=== PATIENT | female | born 1990 | race Caucasian/White ===

== ENCOUNTER 2017-05-07 17:48 | Emergency (ER) | payer BC ==
[~2017-05-07] VITALS: Ht 180.3 cm; Wt 169.3 kg
[~2017-05-07 17:48] MED LIST: BCPILLS PO; GLC/500 PO; LORA-741 PO; PROM25TA9 PO
[2017-05-07 17:58] VITALS: TEMP 36.8; Ht 180.3 cm; Wt 169.3 kg
[2017-05-07] MEDS ORDERED: TOPI25TA99 PO (18:17)
[2017-05-07] MEDS ORDERED: KETOROLAC TROMETHAMINE 30 MG/ML VIAL IV STA (19:25)
[2017-05-07] MEDS ORDERED: PROMETHAZINE HCL INJ 25 MG in SODIUM CHLORIDE 0.9% 50ML 50 ML IV STA (19:25)
[2017-05-07] MEDS ORDERED: SODIUM CHLORIDE 0.9% 1000ML 1,000 ML IV STA (19:25)
[2017-05-07] MEDS ORDERED: MAGNESIUM SULFATE 1GM / D5W 1 GM BAG IV STA (19:25)
[2017-05-07] MEDS ORDERED: TPM25 PO (19:55)
[2017-05-07] MEDS ORDERED: LXP10 PO (19:55)
--- NOTE | 2017-05-07 20:00 | EMERGENCY ROOM VISIT NOTE ---
History Report prepared by Gregory: Serina Torres Under the Supervision of: Dr. Marlo Mazariegos M.D. First contact with patient: 19:11 Chief Complaint: HEADACHE Stated Complaint: MIGRAINE History of Present Illness The patient is a 26 year old female who presents to the Emergency Room with complaints of an episode of a headache starting four days ago. She states that she called her PCP today who set up an appointment with her for tomorrow to find a neurologist. She reports that her PCP told her to come to the ED tonight though. The patient notes that she took Excedrin that seemed to offer some relief, but when it wore off, she reports that the headache came back worse than before. She reports that the pain started in the temporal region and has since radiated through her head. The patient notes she is currently menstruating. The patient denies a chance of , tampon retention, runny nose, and neck pain. Source of History: patient Onset: four days ago Position: head Quality: other (radiating) Timing: other (episode) Modifying Factors (Relieving): other Associated Symptoms: No neck pain Note: The patient denies the chance of , tampon retention, and a runny nose. Review of Systems See HPI for pertinent positives & negatives. A total of 10 systems reviewed and were otherwise negative. Past Medical & Surgical Medical Problems: (1) Acute Pharyngitis (2) Acute Tonsillitis (3) Bronchitis (4) Epilepsy Unspec W/O Mention Intractable Epilepsy (5) Migraine (6) Migraine Unspecified W/O Intractable Migraine (7) PNA (pneumonia) (8) Seizure disorder Family History Cancer Diabetes mellitus Gallbladder disease Heart disease Hypertension Kidney disease Kidney stones Lung disease Social History Smoking Status: Never Smoker Drug Use: none Marital Status: single Occupation Status: employed Current/Historical Medications Scheduled Control Pills ( Control Pills), 1 TAB PO DAILY Escitalopram Oxalate (Escitalopram Oxalate), 15 MG PO DAILY Metformin Hcl (Glucophage), 500 MG PO BID Topiramate (Topamax ), 25 MG PO QAM Topiramate (Topiramate), 50 MG PO QPM Allergies Coded Allergies: Diphenhydramine (Unverified Allergy, Severe, LEG PAIN, 05/16/16) Amoxicillin (Unverified Allergy, Unknown, UNKNOWN, 05/16/16) Physical Exam Vital Signs Date Time Temp Pulse Resp B/P (MAP) Pulse Ox O2 Delivery O2 Flow Rate FiO2 05/07/17 21:31 77 18 147/106 99 05/07/17 20:26 65 05/07/17 20:01 68 18 131/73 97 Room Air 05/07/17 17:58 36.8 92 18 152/104 97 Room Air Physical Exam GENERAL: Patient is a healthy-appearing well-nourished HEAD: Normocephalic atraumatic EYES: Ocular movements intact pupils equal and react to light OROPHARYNX mucous membranes are moist no exudates present no erythema or edema present NECK: Supple no nuchal rigidity. No evidence of meningitis or encephalitis on exam. CHEST: Good equal expansion LUNGS: Clear and equal to auscultation CARDIAC: Normal S1 and S2 ABDOMEN: Soft nontender no guarding BACK: No CVA tenderness EXTREMITIES: No pain upon palpation normal muscle strength in all groups no clubbing cyanosis or edema NEURO: Patient is following commands and answering questions appropriately. Alert and oriented x3 Cranial Nerves 2-12 grossly intact Medical Decision & Procedures Laboratory Results 05/07/17 19:58 Red Blood Count 5.14, Mean Corpuscular Volume 82.3, Mean Corpuscular Hemoglobin 29.4, Mean Corpuscular Hemoglobin Concent 35.7, Mean Platelet Volume 10.6, Neutrophils (%) (Auto) 46.5, Lymphocytes (%) (Auto) 44.7, Monocytes (%) (Auto) 6.1, Eosinophils (%) (Auto) 2.1, Basophils (%) (Auto) 0.3, Neutrophils # (Auto) 3.56, Lymphocytes # (Auto) 3.42, Monocytes # (Auto) 0.47, Eosinophils # (Auto) 0.16, Basophils # (Auto) 0.02 05/07/17 19:58 Test 05/07/17 19:58 White Blood Count 7.65 K/uL (4.8-10.8) Red Blood Count 5.14 M/uL (4.2-5.4) Hemoglobin 15.1 g/dL (12.0-16.0) Hematocrit 42.3 % (37-47) Mean Corpuscular Volume 82.3 fL (80-100) Mean Corpuscular Hemoglobin 29.4 pg (25-34) Mean Corpuscular Hemoglobin Concent 35.7 g/dl (32-36) Platelet Count 371 K/uL (130-400) Mean Platelet Volume 10.6 fL (7.4-10.4) Neutrophils (%) (Auto) 46.5 % Lymphocytes (%) (Auto) 44.7 % Monocytes (%) (Auto) 6.1 % Eosinophils (%) (Auto) 2.1 % Basophils (%) (Auto) 0.3 % Neutrophils # (Auto) 3.56 K/uL (1.4-6.5) Lymphocytes # (Auto) 3.42 K/uL (1.2-3.4) Monocytes # (Auto) 0.47 K/uL (0.11-0.59) Eosinophils # (Auto) 0.16 K/uL (0-0.5) Basophils # (Auto) 0.02 K/uL (0-0.2) RDW Standard Deviation 44.1 fL (36.4-46.3) RDW Coefficient of Variation 14.5 % (11.5-14.5) Immature Granulocyte % (Auto) 0.3 % Immature Granulocyte # (Auto) 0.02 K/uL (0.00-0.02) Anion Gap 8.0 mmol/L (3-11) Est Creatinine Clear Calc Drug Dose 183.1 ml/min Estimated GFR () 116.2 Estimated GFR (Non- 100.2 BUN/Creatinine Ratio 18.6 (10-20) Calcium Level 8.6 mg/dl (8.5-10.1) Total Bilirubin 0.3 mg/dl (0.2-1) Direct Bilirubin < 0.1 mg/dl (0-0.2) Aspartate Amino Transf (AST/SGOT) 17 U/L (15-37) Alanine Aminotransferase (ALT/SGPT) 31 U/L (12-78) Alkaline Phosphatase 78 U/L (45-117) Total Protein 7.2 gm/dl (6.4-8.2) Albumin 3.4 gm/dl (3.4-5.0) Lipase 141 U/L (73-393) Labs reviewed by ED physician. Medications Administered Medications (Trade) Dose Ordered Sig/Hernan Route Start Time Stop Time Status Last Admin Dose Admin Sodium Chloride 1,000 ml @ 999 mls/hr Q1H1M STAT IV 05/07/17 19:25 05/07/17 20:25 DC 05/07/17 19:58 999 MLS/HR Magnesium Sulfate (Magnesium Sulfate) 1 gm NOW STAT IV 05/07/17 19:25 05/07/17 19:27 DC 05/07/17 20:16 1 GM Ketorolac Tromethamine (Toradol Inj) 30 mg NOW STAT IV 05/07/17 19:25 05/07/17 19:27 DC 05/07/17 20:18 30 MG Promethazine HCl 25 mg/Sodium Chloride 51 ml @ 204 mls/hr NOW STAT IV 05/07/17 19:25 05/07/17 19:39 DC 05/07/17 19:58 204 MLS/HR Dexamethasone Sodium Phosphate (Decadron Inj) 10 mg NOW STAT IV 05/07/17 20:45 05/07/17 20:46 DC 05/07/17 21:25 10 MG ED Course 1920: Past medical records reviewed. The patient was evaluated in room A4B. A complete history and physical examination was performed. 1924: Ordered Promethazine HCl 25 mg/ Sodium Chloride 51 ml @ 204 mls/hr IV, Toradol Inj 30 mg IV, Magnesium Sulfate 1 gm IV, NSS 1000 ml @ 999 mls/hr IV. 2039: Upon reexamination the patient is resting comfortably. I discussed results and treatment plan with the patient. She verbalizes agreement and understanding. The patient is ready for discharge. 2044: Ordered Decadron Inj 10 mg IV. Medical Decision Differential diagnosis: Etiologies such as migraine headache, meningitis, sinusitis, CO exposure, ICH, SAH, infection, tumor, headache, sinus thrombosis, arterial dissection, as well as others were entertained. This is a 26-year-old female who presents emergency department complaining of headache. She has no evidence of meningitis or encephalitis on examination. An IV was established, the patient was given normal saline bolus, Toradol, Phenergan, Decadron. Repeat examination revealed improvement the patient's symptoms. I do believe that the patient as well as to be discharged home for follow-up with her neurologist. Patient was in agreement with the treatment plan. Medication Reconcilliation Current Medication List: was personally reviewed by me Blood Pressure Screening Patient's blood pressure: Elevated blood pressure Blood pressure disposition: Referred to PCP Impression Primary Impression: Headache Scribe Attestation The scribe's documentation has been prepared under my direction and personally reviewed by me in its entirety. I confirm that the note above accurately reflects all work, treatment, procedures, and medical decision making performed by me. Departure Information Dispostion Home / Self-Care Referrals No Doctor, Assigned (PCP) Forms HOME CARE DOCUMENTATION FORM, IMPORTANT VISIT INFORMATION Patient Instructions My [facility] Additional Instructions Follow up with Dr Patel's office You were found to have an elevated blood pressure today (>120 sytolic or >90 diastolic). Per medicare guidelines, you need to follow up with this blood pressure screening with your Primary Care Physician (PCP). For a new PCP call [phone]. You have been examined and treated today on an emergency basis only. This is not a substitute for, or an effort to provide, complete comprehensive medical care. It is impossible to recognize and treat all injuries or illnesses in a single emergency department visit. It is therefore important that you follow up closely with your PCP. Call as soon as possible for an appointment. Thank you for your time and consideration. I look forward to speaking with you again soon. Please don't hesitate to call us if you have any questions. Problem Qualifiers Primary Impression: Headache Headache type: unspecified Headache chronicity pattern: unspecified pattern Intractability: not intractable Qualified Codes: R51 - Headache
[2017-05-07 20:14] LABS: BASO % 0.3 %; BASO ABS # 0.02 K/uL (0-0.2); COMPLETE YES; EOS % 2.1 %; HEMATOCRIT 42.3 % (37-47); IG% 0.3 %; LYMPH % 44.7 %; LYMPH ABS # 3.42 K/uL (1.2-3.4); MEAN CELL VOLUME 82.3 fL (80-100); MEAN CORPUSCULAR HEMOGLOBIN 29.4 pg (25-34); MEAN CORPUSCULAR HGB CONC 35.7 g/dl (32-36); MEAN PLATELET VOLUME 10.6 fL (7.4-10.4); MONO % 6.1 %; NEUT % 46.5 %; PLATELET COUNT 371 K/uL (130-400); RED BLOOD COUNT 5.14 M/uL (4.2-5.4); WHITE BLOOD COUNT 7.65 K/uL (4.8-10.8)
[2017-05-07 20:33] LABS: ALT/SGPT 31 U/L (12-78); AST/SGOT 17 U/L (15-37); BLOOD UREA NITROGEN 15 mg/dl (7-18); BUN/CREATININE RATIO 18.6 (10-20); CALCIUM 8.6 mg/dl (8.5-10.1); CARBON DIOXIDE 25 mmol/L (21-32); CHLORIDE 110 mmol/L (98-107); CREATININE 0.81 mg/dl (0.60-1.20); GLUCOSE 90 mg/dl (70-99); POTASSIUM 4.1 mmol/L (3.5-5.1); SODIUM 143 mmol/L (136-145)
[2017-05-07 20:35] LABS: ALKALINE PHOSPHATASE 78 U/L (45-117)
[2017-05-07] MEDS ORDERED: DEXAMETHASONE SOD INJ 10 MG/ML VIAL IV STA (20:45)
[2017-05-07 21:31] VITALS: BP 147/106; PULSE 77; O2SAT 99
== END 2017-05-07 21:31 | disposition home or self-care (01) ==
LOC: C.EDB 17:49 → C.EDA 21:31
DX: R51 Headache (principal); G40.909 Epilepsy, unspecified, not intractable, without status epilepticus; Z83.3 Family history of diabetes mellitus; Z82.49 Family history of ischemic heart disease and other diseases of the circulatory system

== ENCOUNTER → 2017-07-26 | Outpatient (CLI) | payer BC ==
[~2017-07-26] MED LIST changes: +GADAVIST IV PRN; -LORA-741 PO; +LXP10 PO; -PROM25TA9 PO; +TOPI25TA99 PO; +TPM25 PO
--- NOTE | 2017-07-26 11:55 | DIAGNOSTIC IMAGING REPORT ---
Brain MRI WITH AND WITHOUT CONTRAST HISTORY: WORSENING HEADACHE,R/O LESION,R/O CHIARI MALFORMATION TECHNIQUE: Multiplanar multisequence MRI of the brain was performed both before and after the intravenous administration of contrast. COMPARISON STUDY: Head CT 12/31/2014. FINDINGS: There are no areas of restricted diffusion to suggest acute infarction. Small retention cysts within the left maxillary sinus. Mild mucosal thickening within the left frontal sinus. The orbits are unremarkable. T1 and T2 hyperintense lesions within the bilateral parietal bones with the largest on the right measuring 2.3 cm. 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 Bulbous appearance to the pituitary gland. However, this enhances homogeneously. No definite masses identified. The mastoid air cells are clear. The ventricles and sulci are within normal limits for age. There is no mass, hematoma, midline shift. The major vascular flow-voids at the skull base are well maintained. Postcontrast sequences show no areas of abnormal enhancement. IMPRESSION: No acute intracranial abnormality. Additional findings as described above. Electronically signed by: Elio Benavidez M.D. 07/26/2017 11:54 AM Dictated Date/Time: 07/26/2017 11:44 AM
== END | disposition home or self-care (01) ==
LOC: C.MRIBC 06-27 09:26
PROVIDERS: ATTEND Nurse Practitioner Adult Health
DX: R51 Headache (principal); R68.89 Other general symptoms and signs

== ENCOUNTER 2017-11-27 21:21 | Emergency (ER) | payer BC ==
[~2017-11-27] VITALS: Ht 180.3 cm; Wt 176.6 kg
[~2017-11-27 21:21] MED LIST changes: -GADAVIST IV PRN
[2017-11-27 21:25] VITALS: TEMP 36.8; Ht 180.3 cm; Wt 176.6 kg
[2017-11-27] MEDS ORDERED: ONDANSETRON INJ 2 MG/ML 2 ML VIAL IV STA (22:37)
[2017-11-27] MEDS ORDERED: KETOROLAC TROMETHAMINE 30 MG/ML VIAL IV STA (22:37)
[2017-11-27] MEDS ORDERED: SODIUM CHLORIDE 0.9% 1000ML 1,000 ML IV ONE (22:45)
[2017-11-27 23:11] LABS: BASO % 0.4 %; BASO ABS # 0.03 K/uL (0-0.2); EOS % 2.2 %; EOS ABS # 0.16 K/uL (0-0.5); HEMATOCRIT 43.3 % (37-47); HEMOGLOBIN 14.8 g/dL (12.0-16.0); IG# 0.01 K/uL (0.00-0.02); LYMPH % 46.3 %; LYMPH ABS # 3.36 K/uL (1.2-3.4); MEAN CELL VOLUME 84.1 fL (80-100); MEAN CORPUSCULAR HEMOGLOBIN 28.7 pg (25-34); MEAN CORPUSCULAR HGB CONC 34.2 g/dl (32-36); MEAN PLATELET VOLUME 10.6 fL (7.4-10.4); MONO % 8.7 %; MONO ABS # 0.63 K/uL (0.11-0.59); NEUT % 42.3 %; NEUT ABS # 3.07 K/uL (1.4-6.5); PLATELET COUNT 311 K/uL (130-400); RED CELL DISTRIBUTION WIDTH CV 13.8 % (11.5-14.5); RED CELL DISTRIBUTION WIDTH SD 42.3 fL (36.4-46.3); WHITE BLOOD COUNT 7.26 K/uL (4.8-10.8)
[2017-11-27 23:28] LABS: ALBUMIN 3.4 gm/dl (3.4-5.0); CALCIUM 8.8 mg/dl (8.5-10.1); CREATININE 0.75 mg/dl (0.60-1.20); POTASSIUM 3.8 mmol/L (3.5-5.1)
[2017-11-27 23:31] LABS: TOTAL PROTEIN 7.3 gm/dl (6.4-8.2)
[2017-11-28 02:02] VITALS: BP 134/74; PULSE 76; O2SAT 95
--- NOTE | 2017-11-28 06:05 | EMERGENCY ROOM VISIT NOTE ---
History First contact with patient: 22:30 Chief Complaint: ABDOMINAL PAIN Stated Complaint: BAD STOMACH PAIN Nursing Triage Summary: Patient states "I have really bad stomach pains. I've been having stomach issues for the past 2 months. I was just at my doctor again Saturday and after she pushed on my stomach, everything just started getting worse." History of Present Illness The patient is a 27 year old female who presents to the Emergency Room with complaints of epigastric and right upper quadrant abdominal pain for the past 2 months. The patient states that she went to her primary care physician's office this past week where x-ray was performed and was negative. She is scheduled for outpatient ultrasound next week, but states that her pain is not bearable. The pain does seem to worsen with food. She has never had abdominal surgery. She rates her discomfort a 5/10. She is not taking anything over-the- counter for her discomfort. Review of Systems More than 10 systems were reviewed and otherwise negative with the exception of history of present illness. Past Medical/Surgical History Medical Problems: (1) Acute Pharyngitis (2) Acute Tonsillitis (3) Bronchitis (4) Epilepsy Unspec W/O Mention Intractable Epilepsy (5) Migraine (6) Migraine Unspecified W/O Intractable Migraine (7) PNA (pneumonia) (8) Seizure disorder Family History Cancer Diabetes mellitus Gallbladder disease Heart disease Hypertension Kidney disease Kidney stones Lung disease Social History Smoking Status: Never Smoker Drug Use: none Marital Status: single Occupation Status: employed Current/Historical Medications Scheduled Control Pills ( Control Pills), 1 TAB PO DAILY Escitalopram Oxalate (Escitalopram Oxalate), 15 MG PO DAILY Metformin Hcl (Glucophage), 500 MG PO BID Topiramate (Topamax ), 25 MG PO QAM Topiramate (Topiramate), 50 MG PO QPM Physical Exam Vital Signs Date Time Temp Pulse Resp B/P (MAP) Pulse Ox O2 Delivery O2 Flow Rate FiO2 11/28/17 02:02 76 18 134/74 95 11/27/17 21:25 36.8 79 18 160/101 97 Room Air Physical Exam VITALS: Vitals are noted on the nurse's note and reviewed by myself. Vital signs stable. GENERAL: Well-developed, well-nourished, white female, who is in no acute distress and resting comfortably. Patient is cooperative with the examination. HEART: Regular rate and rhythm without murmurs gallops or rubs. LUNGS: Clear to auscultation bilaterally without wheezes, rales or rhonchi. No retractions or accessory muscle use. ABDOMEN: Positive normal bowel sounds x 4. Soft with epigastric tenderness on palpation. No lower abdominal tenderness. No CVA tenderness. MUSCULOSKELETAL: No muscle atrophy, erythema, or edema noted. Full range of motion in all extremities. Medical Decision & Procedures ER Provider Diagnostic Interpretation: Numbers: [id number], [id number] Preliminary Findings Only See Final Report For Complete Findings US GALLBLADDER: Unremarkable appearance of the gallbladder. Negative sonographic Sutton's sign. Common bile duct is within normal limits. Right kidney is unremarkable. Hepatic steatosis. Laboratory Results 11/27/17 23:00 Red Blood Count 5.15, Mean Corpuscular Volume 84.1, Mean Corpuscular Hemoglobin 28.7, Mean Corpuscular Hemoglobin Concent 34.2, Mean Platelet Volume 10.6, Neutrophils (%) (Auto) 42.3, Lymphocytes (%) (Auto) 46.3, Monocytes (%) (Auto) 8.7, Eosinophils (%) (Auto) 2.2, Basophils (%) (Auto) 0.4, Neutrophils # (Auto) 3.07, Lymphocytes # (Auto) 3.36, Monocytes # (Auto) 0.63, Eosinophils # (Auto) 0.16, Basophils # (Auto) 0.03 11/27/17 23:00 Test 11/27/17 23:00 11/28/17 00:05 White Blood Count 7.26 K/uL (4.8-10.8) Red Blood Count 5.15 M/uL (4.2-5.4) Hemoglobin 14.8 g/dL (12.0-16.0) Hematocrit 43.3 % (37-47) Mean Corpuscular Volume 84.1 fL (80-100) Mean Corpuscular Hemoglobin 28.7 pg (25-34) Mean Corpuscular Hemoglobin Concent 34.2 g/dl (32-36) Platelet Count 311 K/uL (130-400) Mean Platelet Volume 10.6 fL (7.4-10.4) Neutrophils (%) (Auto) 42.3 % Lymphocytes (%) (Auto) 46.3 % Monocytes (%) (Auto) 8.7 % Eosinophils (%) (Auto) 2.2 % Basophils (%) (Auto) 0.4 % Neutrophils # (Auto) 3.07 K/uL (1.4-6.5) Lymphocytes # (Auto) 3.36 K/uL (1.2-3.4) Monocytes # (Auto) 0.63 K/uL (0.11-0.59) Eosinophils # (Auto) 0.16 K/uL (0-0.5) Basophils # (Auto) 0.03 K/uL (0-0.2) RDW Standard Deviation 42.3 fL (36.4-46.3) RDW Coefficient of Variation 13.8 % (11.5-14.5) Immature Granulocyte % (Auto) 0.1 % Immature Granulocyte # (Auto) 0.01 K/uL (0.00-0.02) Anion Gap 9.0 mmol/L (3-11) Est Creatinine Clear Calc Drug Dose 201.2 ml/min Estimated GFR () 126.6 Estimated GFR (Non- 109.2 BUN/Creatinine Ratio 18.0 (10-20) Calcium Level 8.8 mg/dl (8.5-10.1) Total Bilirubin 0.3 mg/dl (0.2-1) Aspartate Amino Transf (AST/SGOT) 13 U/L (15-37) Alanine Aminotransferase (ALT/SGPT) 27 U/L (12-78) Alkaline Phosphatase 65 U/L (45-117) Total Protein 7.3 gm/dl (6.4-8.2) Albumin 3.4 gm/dl (3.4-5.0) Globulin 3.9 gm/dl (2.5-4.0) Albumin/Globulin Ratio 0.9 (0.9-2) Lipase 122 U/L (73-393) Urine Color YELLOW Urine Appearance CLEAR (CLEAR) Urine pH 5.0 (4.5-7.5) Urine Specific [place] 1.031 (1.000-1.030) Urine Protein NEG (NEG) Urine Glucose (UA) NEG (NEG) Urine Ketones NEG (NEG) Urine Occult Blood TRACE (NEG) Urine Nitrite NEG (NEG) Urine Bilirubin NEG (NEG) Urine Urobilinogen NEG (NEG) Urine Leukocyte Esterase NEG (NEG) Urine WBC (Auto) 1-5 /hpf (0-5) Urine RBC (Auto) 0-4 /hpf (0-4) Urine Hyaline Casts (Auto) 1-5 /lpf (0-5) Urine Epithelial Cells (Auto) 10-20 /lpf (0-5) Urine Bacteria (Auto) 1+ (NEG) Urine Yeast (Auto) (NONE PRSENT) Urine Test NEG (NEG) Medications Administered Medications (Trade) Dose Ordered Sig/Hernan Route Start Time Stop Time Status Last Admin Dose Admin Sodium Chloride 1,000 ml @ 999 mls/hr Q1H1M ONCE IV 11/27/17 22:45 11/27/17 23:45 DC 11/27/17 22:56 999 MLS/HR Ketorolac Tromethamine (Toradol Inj) 30 mg NOW STAT IV 11/27/17 22:37 11/27/17 22:39 DC 11/27/17 22:56 30 MG Ondansetron HCl (Zofran Inj) 4 mg NOW STAT IV 11/27/17 22:37 11/27/17 22:39 DC 11/27/17 22:55 4 MG ED Course Physical exam and history were performed. Nursing notes, EMR, and Medication List were personally reviewed. Patient appears to have epigastric abdominal pain for the past several months. It appears to worsen with food. IV access was established and labs were obtained. X-ray and ultrasound were performed. The patient was hydrated and medicated as above. The patient's blood work is as above and was reviewed. She does not have a significantly elevated white blood cell count, gross anemia, bandemia, or significant electrolyte imbalance. Lipase and transaminases are not diagnostic. X-ray does not show significant acute findings such as free air or signs of obstruction. Ultrasound is as above and does not show cholecystitis or other significant findings. On reevaluation the patient continues to be in no significant distress. I suspect that her symptoms may be biliary in nature, however they could represent PUD or gastritis. Overall because of the patient's body habitus biliary colic is strongly considered, and I will provide her information to follow with a surgeon. The patient may also follow with her primary care physician for further care and management. She was instructed on conservative measures and otherwise admitted back to the ER with any new, worsening, or concerning symptoms. The chart was completed utilizing Dragon Speech Voice Recognition Software. Grammatical errors, random word insertions, pronoun errors, and incomplete sentences are an occasional consequence of this system due to software limitations, ambient noise, and hardware issues. Any formal questions or concerns about the content, text, or information contained within the body of this dictation should be directly addressed to the provider for clarification. . Medical Decision Differential diagnosis: Etiologies such as appendicitis, diverticulitis, PUD, biliary pathology, UTI, pancreatitis, obstruction, mesenteric ischemia, aortic pathology, infections, inflammatory bowel disease, renal colic, as well as others were entertained. Impression Primary Impression: Epigastric abdominal pain Departure Information Dispostion Home / Self-Care Condition GOOD Referrals Cinthya Hatfield D.O. (PCP) Sunny Huang M.D. Forms Call Back Authorization, HOME CARE DOCUMENTATION FORM, IMPORTANT VISIT INFORMATION Patient Instructions My [facility] Additional Instructions You were seen and evaluated today on an emergency basis only. This is not a substitute for, or an effort to provide, complete comprehensive medical care. It is not possible to recognize and treat all injuries or illnesses in a single emergency department visit. For this reason it is recommended that you followup with your primary care physician or general surgery, Dr. Huang's office, for ongoing care and evaluation. For baseline pain relief you may alternate ibuprofen and acetaminophen every 4 hours for pain control. Take 600 mg ibuprofen (Advil) and then 4 hours later take 1000 mg acetaminophen (Tylenol). Do not take more than 3000 mg acetaminophen in a single day. Drink plenty of fluids and remain well-hydrated. You are welcome to return to the emergency department anytime with new, worsening, or concerning symptoms.
--- NOTE | 2017-11-28 06:47 | DIAGNOSTIC IMAGING REPORT ---
GALLBLADDER-ABD LIMITED CLINICAL HISTORY: Upper abd pain pain. Nausea. TECHNIQUE: Ultrasound COMPARISON STUDY: None FINDINGS: Normal gallbladder. Common bile duct 4 mm. Fatty infiltration of liver. Pancreas and right kidney are unremarkable. IMPRESSION: Fatty infiltration of liver. Otherwise negative study. The above report was generated using voice recognition software. It may contain grammatical, syntax or spelling errors. Electronically signed by: Sunny Bain M.D. 11/28/2017 6:46 AM Dictated Date/Time: 11/28/2017 6:45 AM
--- NOTE | 2017-11-28 07:15 | DIAGNOSTIC IMAGING REPORT ---
PA CHEST RADIOGRAPH AND UPRIGHT AND SUPINE AP RADIOGRAPHS OF THE ABDOMEN CLINICAL HISTORY: Upper abdominal pain. COMPARISON STUDY: No previous studies for comparison. FINDINGS: Lung volumes are normal. Lungs are clear. No pneumothorax or pleural effusion is noted. Cardiac size is normal. Mediastinal contours are normal. There is no evidence for pulmonary edema. There is no free air. The bowel gas pattern is normal. There is mild rightward curvature of the thoracic spine. IMPRESSION: 1. No free air or evidence of bowel obstruction. 2. No acute cardiopulmonary findings. Electronically signed by: Balaji Finnegan M.D. 11/28/2017 7:14 AM Dictated Date/Time: 11/28/2017 7:13 AM
== END 2017-11-28 02:02 | disposition home or self-care (01) ==
LOC: C.EDB 21:23 → C.EDA 11-28 02:02
DX: R10.13 Epigastric pain (principal); G40.909 Epilepsy, unspecified, not intractable, without status epilepticus; Z87.01 Personal history of pneumonia (recurrent); Z83.3 Family history of diabetes mellitus; Z82.49 Family history of ischemic heart disease and other diseases of the circulatory system; Z84.1 Family history of disorders of kidney and ureter; Z79.899 Other long term (current) drug therapy

== ENCOUNTER 2024-09-17 06:03 | Inpatient (IN) ==
--- OUTSIDE RECORDS SUMMARY | 2024-09-17 06:10 | External Medical Summary | Summary of Care ---
Author Name Unknown Organization [facility] Address [address] [facility] [place] [address] Phone [phone] Care Team Providers Care Master [employer] Name Role Phone RosaCinthya reese Jeremy OROZCO Primary Care Provider Reason for Visit * Reason Onset Date Comments Precert Approved 05/27/2024 Ozempic Encounter Details Date Type Department Care Team (Late st Contact Info) Description 05/27/2024 Telephone Gastroenterology, [facility] [address] [facility] [place] [address] Kandis Marti PA-C Precert Approved (Ozempic) Allergies Active Allergy Reactions Criticality Noted Date Comments Amoxicillin 11/23/2005 Diphenhydramine Other (Please comment) High 11/29/19 18 Cephalexin High 04/23/2019 Itchy, hives, throat closing, chest tightness. documented as of this encounter (statuses as of 08/26/2024) Medications Montelukast Sodium 10 MG Oral Tablet (Singulair) Take 1 Tablet by mouth in the morning. 90 Tablet 3 09/26/19 24 Active Topiramate 25 MG Oral Tablet (Topamax) Take 1 Tablet by mouth in the morning and 1 Tablet at noon and 1 Tablet in the evening. 90 Tablet 2 04/23/20 24 Active Excedrin Migraine 250-250-65 MG Oral Tablet (Aspirin-Acetami nophen-Caffeine) Take 1 Tablet by mouth 3 times a day as needed for Migraine. 01/01/20 21 Discontinued(De dication List Clean Up) Escitalopram Oxalate 10 MG Oral Tablet (Lexapro)Indicat ions:Adjustment disorder with anxious mood Take 1 Tablet by mouth in the morning. 30 Tablet 5 08/16/20 23 Discontinued(Re fill) Fluorometholone 0.1 % Ophthalmic Suspension (FML) INSTILL 1 DROP INTO AFFECTED EYE(S) 4 TIMES DAILY FOR 2 WEEKS 03/24/20 24 Discontinued(Pa tient preference/disc ontinuation) Norgestimate-Eth Estradiol 0.25-35 MG-MCG Oral Tablet (Sprintec 28)Indications:P COS (polycystic ovarian syndrome) Take 1 Tablet by mouth in the morning. In the morning.. 84 Tablet 3 04/23/20 24 Discontinued Wegovy 0.5 MG/0.5ML Subcutaneous Solution Auto-injector ([facility]) Inject 0.5 mg (1 pen) under the skin once a week. 2 mL 3 04/27/20 24 024 Discontinued(Pa tient preference/disc ontinuation) Semaglutide(0.25 or 0.5MG/DOS) 2 MG/3ML Solution Pen-injector (Ozempic) Inject 0.5 mg under the skin once a week. 9 mL 2 4 1:08 PM EDT 05/13/20 24 Discontinued(Re fill) documented as of this encounter (statuses as of 08/26/2024) Active Problems Problem Noted Date Diagnosed Date Intestinal postoperative nonabsorption 4 Obesity, morbid (more than 1 00 lbs over ideal weight or BMI > 40) 08/06/2024 S/P bariatric surgery 08/04/2024 Depression with anxiety 08/04/2024 Encounter for counseling regarding contraception 08/04/2024 Pre-operative examination 07/03/2024 [facility] OTHER*[id number] 07/03/2024 Central obesity 06/15/2024 Super obese 06/12/2024 Hyperinsulinemia 09/26/2023 Left-sided low back pain with left-sided sciatic a 09/26/2023 Migraine with aura and witho ut status migrainosus, not intractable 11/24/2022 ROSANNE (generalized anxiety disorder) 11/24/2022 Abdominal pain 10/22/2017 PCOS (polycystic ovarian syndrome) 05/27/2012 Class 3 severe obesity due t o excess calories without serious comorbidity with body mass index (BMI) of 50.0 to 59.9 in adult 04/21/2012 documented as of this encounter (statuses as of 08/26/2024) Resolved Problems Problem Noted Date Diagnosed Date Resolved Date Class 3 severe obesity due t o excess calories without serious comorbidity with body mass index (BMI) of 60.0 to 69.9 in adult 07/03/2024 Migraine variant 05/18/2020 11/24/2022 BMI 50.0-59.9, adult 10/22/2017 023 Overview (10/22/2017): bmi= 53.70 10/22/17 Seizure disorder 10/22/2017 08/31/2022 Body mass index (BMI) of 50. 0 to 59.9 in adult 06/17/2017 10/22/2017 Overview: Per Obesity protocol #1 Cellulitis of external cheek, left 03/04/2015 03/14/2017 Super obese 05/28/2014 07/16/2024 Overview (05/28/2014): bmi= 49.69 05/28/14 Sinus congestion 09/17/2012 03/14/2017 Chronic rhinitis 09/17/2012 03/14/2017 Irregular menses 05/27/2012 03/14/2017 Migraine variant 10/02/2010 11/24/2022 documented as of this encounter (statuses as of 08/26/2024) Immunizations Name Administration Dates Next Due COVID-19 mRNA, LNP-s, No Pre serve, 2-Dose Series ([employer]) 08/29/2021,10/03/2020,09/12/2020 Hepatitis B, 20+ yrs 04/27/2022,12/15/2021,11/10 MMR - Measles/Mumps/Rubella Vaccine 01/19/2022,0 11/17/2021 Seasonal Influenza Vac., MDV , IM, 0.5 mL (Fluzone) 06/26/2018,06/16/2014,07/17/2013 Seasonal Influenza Virus Vac cine, Unspecified Formulation 07/11/2020 Seasonal Influenza, PF, 6 M & above, IM , (FluLaval or Fluzone) 07/19/2022,06/21/2021,06/30/2019 Seasonal Influenza, QUAD, wi th Preserv, 6 mons & Above, 0.5 mL, IM 06/26/2017 TDAP (age 10 and older)(Boostrix) 05/28/2014 documented as of this encounter Social History Tobacco Use Types Packs/Day Years Used Date Smoking Tobacco: Never Passive Smoke Exposure: Current Smokeless Tobacco: Never Alcohol Use Standard Drinks/Week Comments Never 0 (1 standard drink = 0.6 oz pur e alcohol) PHQ-2 Answer Date Recorded PHQ Adult Total Score 1 08/17/2024 Hunger Vital Sign Answer Date Recorded Within the past 12 months, y ou worried that your food would run out before you got the money to buy more. Never true 08/17/20 24 Within the past 12 months, t he food you bought just didn't last and you didn't have money to get more. Never true 08/17/2024 Childcare Answer Date Recorded Do you feel overwhelmed with taking care of a child, family member or friend? No 08/17/2024 Does your family need help f inding childcare? (Household - for ages 0-17 years) Not on file 08/17/2024 Clothing Answer Date Recorded Have you been unable to get clothing when it was really needed? No 08/17/2024 Is your family able to get c lothes or diapers when needed? (Household - for ages 0-17 years) Not on file 08/17/2024 Personal Safety Answer Date Recorded Do you feel unsafe or have concerns for your saf ety? No 08/17/2024 Do you have concerns for you r family's safety? (Household - for ages 0-17 years) Not on file 08/17/2024 Utilities Answer Date Recorded Do you have trouble paying y our heating, water, or electric bill? No 08/17/2024 Is your family able to pay t he heat, water, or electric bill? (Household - for ages 0-17 years) Not on file 08/17/2024 Does your family have access to good internet? (Household - for ages 0-17 years) Not on file 08/17/2024 Employment Status Answer Date Recorded Are you unemployed or without regular income? No 08/17/2024 Does the household have a re gular source of income? (Household - for ages 0-17 years) Not on file 08/17/2024 Social Connections Answer Date Recorded How often do you feel lonely or isolated from th ose around you? Never 08/17/2024 Financial Resource Strain Answer Date R ecorded Do you have any trouble payi ng for your medications, or do you think you might in the future? No 08/17/2024 Does your family have troubl e paying for medicine? (Household - for ages 0-17 years) Not on file 08/17/2024 Transportation Needs Answer Date Record ed Do you have trouble getting a ride to medical visits or work? (Adult - for ages 18 years and over) Not on file 08/17/2024 Does your family have a hard time getting a ride to doctors visits? (Household - for ages 0-17 years) Not on file 08/17/2024 Has lack of transportation k ept you from medical appointments, meetings, work, or from getting things needed for daily living? Check all that apply. No 08/17/2024 Do you (or your family) have trouble finding or paying for a ride (transportation)? (Household - for ages 0-17 years) Not on file 08/17/2024 Housing Stability Answer Date Recorded Do you currently live in a s helter or have no steady place to sleep at night? No 08/17/2024 Do you think you are at risk of becoming homeless? (Adult - for ages 18 years and over) Not on file 08/17/2024 Does your family worry about paying for your home or becoming homeless? (Household - for ages 0-17 years) Not on file 1 10/18/2023 Are you homeless or worried that you might be in the future? No 08/17/2024 Are you (or your family) alexi eless or worried that you might be in the future? (Household - for ages 0-17 years) Not on file Food Insecurity Answer Date Recorded Do you need food for this week? No 08/17/2024 Are you able to get enough f ood for your family? (Household - for ages 0-17 years) Not on file 08/17/2024 Does your family need food t his week? (Household - for ages 0-17 years) Not on file 08/17/2024 Do you always have enough fo od for your family? (Household - for ages 0-17 years) Not on file 08/17/2024 Comments No Sex and Gender Information Value Date Recorded Sex Assigned at Female 06/19/2019 1:31 PM EDT Legal Sex Female 7:09 AM EST Gender Identity Female 06/19/2019 1:31 PM EDT Sexual Orientation Straight 04/22/2019 1: 43 PM EDT documented as of this encounter Miscellaneous Notes * Telephone Encounter - Stacia Martínez RN - 06/02/2024 12:49 PM EDT Pt called and notified of approval. No answer, voicemail left * Telephone Encounter - Nikolay Yarbrough LPN - 05/28/2024 4:11 PM EDT Type Date User Summary Attachment Precert 05/28/2024 9:32 AM Mónica Joel OSA Please see scanned fax from insurance under theMedia Tab. - Note: Please see scanned fax from insurance under the Media Tab. Approved/Denied: approved Drug Name and Formulation: Semaglutide(0.25 or 0.5MG/DOS) 2 MG/3ML Solution Pen- injector (Ozempic) How Prescribed(directions/sig): WEEKLY Qty and Day Supply: 12/11 Did you receive insurance information from outside the chart? No, received insurance information within the chart Valid auth start date: 05/27/2024 Valid auth end date: 11/24/2024 Rx Insurance Info: [facility] [place] Reference #: Mónica Joel Medication Professor Of Communication And Writing III [facility] ([facility]) P: [phone] F: [phone] 05/28/24,9:32 AM . Type Date User Summary Attachment Precert 05/27/2024 1:18 PM Mónica Joel OSA [facility] Authorization Submission - Note: [facility] Authorization Submission Submission Information: Medication: Semaglutide(0.25 or 0.5MG/DOS) 2 MG/3ML Solution Pen-injector (Ozempic) Portal used: [facility] Insurance: [facility] Authorization #/Patel: [id number] * Telephone Encounter - Stacia Martínez RN - 05/27/2024 11:53 AM EDT Please Start prior authorization for Semaglutide(0.25 or 0.5MG/DOS) 2 MG/3ML Solution Pen-injector (Ozempic) Diagnosis Morbid obesity due to excess calories E66.01 Patient qualifies for Weight loss medication due to BMI >30 or BMI >27 with obesity related comorbidity BMI Readings from Last 2 Encounters: 05/01/24 55.10 kg/m 04/23/24 56.50 kg/m Wt Readings from Last 2 Encounters: 05/01/24 (!) 174.2 kg (384 lb) 04/23/24 (!) 178.6 kg (393 lb 12.8 oz) Patient had tried or has contraindications to Topamax Josie Murray PA-C documented in this encounter Plan of Treatment Upcoming Encounters Date Type Department Care Team (Late st Contact Info) Description 09/01/2024 10:20 AM EST Telemedicine Nutrition & Weight Management, [place] [address] [place] [address] D[facility] Urbano CRNP [address] [facility] [address] 09/01/2024 1:50 PM EST Telemedicine Nutrition & Weight Management, [facility] [address] [place] [address] Anjana Saunders RDN [address] [place] [address] 10/02/2024 8:00 AM EST Nutrition Services Nutrition & Weight Management, [facility] [address] [place] [address] Anjana Saunders RDN [address] [place] [address] 10/02/2024 9:00 AM EST Office Visit Nutrition & Weight Management, [facility] [address] [facility] [place] [address] Josie Dennison PA-C [address] [facility] [place] [address] 10/23/2024 10:00 AM EST Office Visit Gynecology/Obstetrics [facility] [address] [facility] [place] [address] Kortney Fairbanks CRNP [address] [place] [address] 12/14/2024 3:20 PM EDT Telemedicine Nutrition & Weight Management, [place] [address] [place] [address] Debbie Wing CRNP [address] [place] [address] 12/24/2024 1:00 PM EDT Office Visit General Surgery, [place] [address] [place] [address] Sarah Trejo MD [address] [place] [address] Health Maintenance Due Date Last Done Comments Influenza Vaccine (FLU shot) (#1) 2024 07/19/2022, 07/19/2022, 06/21/2021, Additional history exists DTap/Tdap Vaccines (2 - Td or Tdap) 05/28/2024 05/28/2014 Depression Monitoring 08/17/2025 08/17/2024 , 04/24/2024, 04/23/2024 Pneumococcal Vaccine: Pediatrics (0 to 5 Years) and At-Risk Patients (6 to 64 Years) (1 of 2 - PCV) 08/25/2025 Postponed from 1996 (Patient Declined After Education) PAP SMEAR-EVERY 2 YRS,AGES 18-100 04/23/2026 04/23/2024, 04/12/2021, 05/16/2018, Additional history exists COVID-19 Vaccine Discontinued 08/29/2021, , 09/12/2020 Hepatitis B Vaccine Completed 04/27/2022, 12/15/2021, 11/10/2021 HPV (Gardasil) Vaccine Aged Out No lo nger eligible based on patient's age to complete this topic MENINGOCOCCAL (MENACTRA/MENVEO) Aged Out No longer eligible based on patient's age to complete this topic documented as of this encounter Medical Devices Not on filedocumented as of this encounter Advance Directives * Full Code (Latest Code Status on File) Date Activated Date Inactivated Comments 08/08/2024 5:37 PM 08/11/2024 3:51 PM Question Answer Comments Discussion of Advance Direct dawn occurred with: Not Discussed due to patient's condition * Full Code Date Activated Date Inactivated Comments 08/04/2024 1:21 PM 08/06/2024 2:30 PM Question Answer Comments Discussion of Advance Direct dawn occurred with: Not Discussed due to patient's condition * Full Code Date Activated Date Inactivated Comments 08/04/2024 6:41 AM 08/04/2024 1:21 PM Question Answer Comments Discussion of Advance Direct dawn occurred with: Not Discussed due to patient's condition Care Teams Master [employer] Relationship Specialty Start Date End Date Cinthya Haftield DO [address] [place] [address] PCP - General Family Medicine 01/29/24 documented as of this encounter
--- OUTSIDE RECORDS SUMMARY | 2024-09-17 06:10 | External Medical Summary | Summary of Care ---
Author Name Unknown Organization [facility] Address [address] [place] [address] Phone [phone] Care Team Providers Care Claim Service Representative Name Role Phone EzequielCinthya rizo Jeremy OROZCO Primary Care Provider [phone] Encounter Details Date Type Department Care Team (Late st Contact Info) Description 09/01/2024 10:20 AM EST Telemedicine Nutrition & Weight Management, [facility] [address] [place] [address] Dina Urbano CRNP [address] [place] [address] Abnormal weight gain*; S/P bariatric surgery Allergies Active Allergy Reactions Criticality Noted Date Comments Amoxicillin 11/23/2005 Diphenhydramine Other (Please comment) High 11/29/19 18 Cephalexin High 04/23/2019 Itchy, hives, throat closing, chest tightness. documented as of this encounter (statuses as of 09/01/2024) Medications Montelukast Sodium 10 MG Oral Tablet (Singulair) Take 1 Tablet by mouth in the morning. 90 Tablet 3 09/26/19 24 Active Topiramate 25 MG Oral Tablet (Topamax) Take 1 Tablet by mouth in the morning and 1 Tablet at noon and 1 Tablet in the evening. 90 Tablet 2 04/23/20 24 Active Escitalopram Oxalate 10 MG Oral Tablet (Lexapro)Indicatio ns:Adjustment disorder with anxious mood Take 1 Tablet by mouth in the morning. 30 Tablet 2 06/25/20 24 Active Acetaminophen 500 MG Oral Tablet (Tylenol) 2 caps every 8 hours for 3 days, then 1 cap every 4 hours as needed for pain. Do not exceed 3000mg acetaminophen (Tylenol) every 24 hours. 1 Tablet 08/05/20 24 Active Ondansetron 4 MG Oral Tablet Disintegrating (Zofran) Place 1 Tablet on tongue every 8 hours as needed for Other (post op nausea/vomiting). dissolve on tongue. 1 Tablet 08/05/20 24 Active Omeprazole 20 MG Oral Capsule Delayed Release (PriLOSEC)Indicati ons:GERD Take 1 Capsule by mouth in the morning. For 90 days after surgery. 90 Capsule 08/06/20 24 025 Active Simethicone 80 MG Oral Tablet Chewable (Mylicon) Chew and swallow 2 tablets by mouth every 8 hours as needed for gas or bloating. 30 Tablet 4 9:04 AM EST 08/06/20 24 Active Methocarbamol 500 MG Oral Tablet (Robamol) Take 1 Tablet by mouth every 8 hours as needed for Muscle spasms. 10 Tablet 4 9:04 AM EST 08/06/20 24 Active Polyethylene Glycol 3350 17 GM/SCOOP Oral Powder (MiraLax) Take 17 g by mouth daily as needed for Constipation. Active Azithromycin 250 MG Oral Tablet (Zithromax)Indicat ions:Bronchitis, complicated Take 2 tabs by mouth on the first day, then 1 tab daily on days two through five 6 Tablet 08/27/20 24 024 Active documented as of this encounter (statuses as of 09/01/2024) Active Problems Problem Noted Date Diagnosed Date Intestinal postoperative nonabsorption 4 S/P bariatric surgery 08/04/2024 Depression with anxiety 08/04/2024 Encounter for counseling regarding contraception 08/04/2024 [facility] OTHER*[id number] 07/03/2024 Central obesity 06/15/2024 Hyperinsulinemia 09/26/2023 Left-sided low back pain with left-sided sciatic a 09/26/2023 Migraine with aura and witho ut status migrainosus, not intractable 11/24/2022 ROSANNE (generalized anxiety disorder) 11/24/2022 Abdominal pain 10/22/2017 PCOS (polycystic ovarian syndrome) 05/27/2012 Class 3 severe obesity due t o excess calories without serious comorbidity with body mass index (BMI) of 45.0 to 49.9 in adult 04/21/2012 documented as of this encounter (statuses as of 09/01/2024) Resolved Problems Problem Noted Date Diagnosed Date Resolved Date Obesity, morbid (more than 1 00 lbs over ideal weight or BMI > 40) 08/06/2024 08/27/2024 Pre-operative examination 07/03/2024 Class 3 severe obesity due t o excess calories without serious comorbidity with body mass index (BMI) of 60.0 to 69.9 in adult 07/03/2024 Super obese 06/12/2024 08/27/2024 Migraine variant 05/18/2020 11/24/2022 BMI 50.0-59.9, adult [...] as of this encounter (statuses as of 09/01/2024) Immunizations Name Administration Dates Next Due COVID-19 mRNA, LNP-s, No Pre serve, 2-Dose Series (Weave) 08/29/2021,10/03/2020,09/12/2020 Hepatitis B, 20+ yrs 04/27/2022,12/15/2021,11/10 MMR [...] PM EDT documented as of this encounter Functional Status * Are you deaf or do you have serious difficulty hearing? Answer Date of Assessment Author No 08/08/2024 5:35 PM Destiny León RN * Are you blind or do you have serious difficulty seeing, even when wearing glasses? Answer Date of Assessment Author No 08/08/2024 5:35 PM Destiny León RN * Do you have serious difficulty walking or climbing stairs? (5 years old or older) Answer Date of Assessment Author No 08/08/2024 5:35 PM Destiny León RN * Do you have difficulty dressing or bathing? (5 years old or older) Answer Date of Assessment Author No 08/08/2024 5:35 PM Destiny León RN * Because of a physical, mental, or emotional condition, do you have difficulty doing errands alone such as visiting a doctors office or shopping? (15 years old or older) Answer Date of Assessment Author No 08/08/2024 5:35 PM Destiny León RN documented as of this encounter Mental Status * Because of a physical, mental, or emotional condition, do you have serious difficulty concentrating, remembering, or making decisions? (5 years old or older) Answer Entry Date Author No 08/08/2024 5:35 PM Destiny León RN documented in this encounter Progress Notes * Dina Urbano, JUNO - 09/01/2024 10:23 AM EST [facility] Post BPD-DS (Biliopancreatic Diversion with Duodenal Switch) ALVARO Patient location: HOME. I was in a hospital or clinic location. After connecting through televideo,patient was verified with two unique identifiers. Patient (or authorized legal tax representative) was then informed that this was a Telemedicine visit and being conducted confidentially over secure lines. Methods to assure confidentiality were taken. Patient acknowledged consent and understanding of pr ivacy and security of the Telemedicine visit. The patient agreed to participate. Referring physician: Dina Acosta is a 34 year old female who presents in follow up to the comprehensive weight management clinic. The patient has/had a past medical history of Past Medical History: Diagnosis Date Anxiety ROSANNE (generalized anxiety disorder) 11/24/2022 Gastritis Migraine headache Migraine with aura and without status migrainosus, not intractable 11/24/2022 PCOS (polycystic ovarian syndrome) 05/27/2012 Seizures (HCC) sees Dr Gutierrez, not on any seizure medication Super obese 06/12/2024 . The patient is s/p laprascopic ALVARO by Dr. Trejo on August 04, 2024. - Weight at the initial clinic visit 410 lbs - Weight at the time of the surgery 394 lbs - Today's weight 338 lbs Wt Readings from Last 6 Encounters: 08/25/24 (!) 156 kg (343 lb 14.4 oz) 08/25/24 (!) 157.3 kg (346 lb 12.8 oz) 08/08/24 (!) 169.3 kg (373 lb 3.8 oz) 08/05/24 (!) 179 kg (394 lb 10 oz) 07/03/24 (!) 171 kg (376 lb 14.4 oz) 06/12/24 (!) 174.6 kg (385 lb) - The patient is receiving dietary and physical activity instructions as part of their weight management treatment. Review of Systems: Constitutional: (-) fever chills sweats or weight loss ENT: (-) negative: no headaches, vertigo, hearing loss, sinus, ear, or throat problems Cardiovascular: (-) negative: no chest pain, dyspnea, syncope, or palpitations Pulmonary: (-) negative: no cough, wheezing, or shortness of breath Abdominal/GI: (-) negative: no pain, heartburn, dysphagia, bleeding, change in bowel habits, nauseaor vomiting With eggs she felt like they got stuck otherwise fine Psychosocial adjustment: No, no Issues with body image, stress management, relationships, and addiction transfer Current recommended meal plan: Stage 2b: Patient is getting ~70 grams of protein a day. Patient is getting ~40 ounces of fluid a day. Compliance with meal plan: yes Activity Level: Light activity Taking supplements as ordered for each of the following: MVI and B1 Review of patient's allergies indicates: Allergen Reactions Diphenhydramine Other (Please comment) Keflex [Cephalexin] Itchy, hives, throat closing, chest tightness. Amoxicillin Current Outpatient Medications Medication Sig Dispense Refill Montelukast Sodium 10 MG Oral Tablet (Singulair) Take 1 Tablet by mouth in the morning. 90 Tablet 3 Topiramate 25 MG Oral Tablet (Topamax) Take 1 Tablet by mouth in the morning and 1 Tablet at noon and 1 Tablet in the evening. 90 Tablet 2 Escitalopram Oxalate 10 MG Oral Tablet (Lexapro) Take 1 Tablet by mouth in the morning. 30 Tablet 2 Acetaminophen 500 MG Oral Tablet (Tylenol) 2 caps every 8 hours for 3 days, then 1 cap every 4 hours as needed for pain. Do not exceed 3000mg acetaminophen (Tylenol) every 24 hours. 1 Tablet 0 Ondansetron 4 MG Oral Tablet Disintegrating (Zofran) Place 1 Tablet on tongue every 8 hours as needed for Other (post op nausea/vomiting). dissolve on tongue. 1 Tablet 0 Omeprazole 20 MG Oral Capsule Delayed Release (PriLOSEC) Take 1 Capsule by mouth in the morning. For 90 days after surgery. 90 Capsule 0 Simethicone 80 MG Oral Tablet Chewable (Mylicon) Chew and swallow 2 tablets by mouth every 8 hours as needed for gas or bloating. 30 Tablet 0 Methocarbamol 500 MG Oral Tablet (Robamol) Take 1 Tablet by mouth every 8 hours as needed for Muscle spasms. 10 Tablet 0 Polyethylene Glycol 3350 17 GM/SCOOP Oral Powder (MiraLax) Take 17 g by mouth daily as needed for Constipation. Azithromycin 250 MG Oral Tablet (Zithromax) Take 2 tabs by mouth on the first day, then 1 tab dailyon days two through five 6 Tablet 0 No current facility-administered medications for this visit. There were no vitals taken for this visit. PHYSICAL EXAMINATION: NAD HEENT: wnl Neck: supple, normal ROM Neuro: alert and oriented Psych: normal mood and affect Assessment/Plan: laprascopic BPD-DS (Biliopancreatic Diversion with Duodenal Switch) --ALVARO Doing very well overall. Will advance to Stage [address] . The patient will start Vitamin A, D, E, K The patient will continue MVI and Thiamine Continue to increase physical activity. Annual labs due July 2024 PPI: Patient is taking post op prophylactic PPI. Patient advised to continue this through 90 day post op period. PCOS (polycystic ovarian syndrome) Patients with PCOS/hyperinsulinemia tend to respond well to a low-carb diet. Limit processed carbs/sugary foods & drinks; focus on meals consisting primarily of protein, vegetables, fruit, healthy fats, & whole grains ROSANNE (generalized anxiety disorder) Reports stable- Hyperinsulinemia Migraines- On Topamax I spent a total of 20-29 minutes (exact time 25 mins) on the date of service in preparation, delivery, and documentation of the care provided to Dina Maxx Acosta excluding any time spent in the performance of separately billed services. More than 50% of my time spent with patient providing counseling about the benefits of weight loss,about his/her nutritional status, detailed explanations about calorie count, types of nutrients to choose, and composition of the meals. Motivational interview provided in order to prepare the patient to achieve future goals. The patient agreed to try all the plan discussed and return in one month JUNO Marshall documented in this encounter Plan of Treatment Upcoming Encounters Date Type Department Care Team (Late st Contact Info) Description 09/01/2024 1:50 PM EST Telemedicine Nutrition & Weight Management, [address] [place] [id number] Anjana Saunders RDN [address] [facility] [place] [address] 10/02/2024 8:00 AM EST Nutrition Services Nutrition & Weight Management, [facility] [address] [place] [address] Anjana Saunders RDN [address] [place] [address] 10/02/2024 9:00 AM EST Office Visit Nutrition & Weight Management, [facility] [address] [place] [address] Josie Dennison PA-C [address] [place] [address] 10/23/2024 10:00 AM EST Office Visit Gynecology/Obstetrics [facility] [address] [place] [address] Kortney Fairbanks CRNP [address] [place] [address] 12/14/2024 3:20 PM EDT Telemedicine Nutrition & Weight Management, [facility] [address], [place] [id number] Debbie Wing CRNP [address] [place] [address] 12/24/2024 1:00 PM EDT Office Visit General Surgery, [facility] [address], [place] [id number] Sarah Trejo MD [address] [place] [address] Health Maintenance Due Date Last [...] Not on filedocumented as of this encounter Visit Diagnoses Diagnosis Abnormal weight gain- Primary S/P bariatric surgery Bariatric surgery status documented in this encounter Advance Directives * Full Code [...] Discussed due to patient's condition Care Teams Claim Service Representative Relationship Specialty Start Date End Date Cinthya Hatfield DO [address] [facility] [place] [address] PCP - General Family Medicine 01/29/24 documented as of this encounter
--- OUTSIDE RECORDS SUMMARY | 2024-09-17 06:10 | External Medical Summary | Summary of Care ---
Author Name Unknown Organization [facility] Address [address] [place] [address] Phone [phone] Care Team Providers Care Land Surveyor Assistant Name Role Phone RosaCinthya reese Jeremy OROZCO Primary Care Provider Reason for Visit * Reason Comments Follow Up Encounter Details Date Type Department Care Team (Late st Contact Info) Description 08/25/2024 1:00 PM EST Office Visit General Surgery, [place] [address], [place] [id number] Sarah Trejo MD [address] [place] [address] Class 3 severe obesity due to excess calories without serious comorbidity with body mass index (BMI) of 45.0 to 49.9 in adult (HCC)*; S/P bariatric surgery; Postop check; Central obesity; Left upper quadrant abdominal pain Allergies Active Allergy Reactions Criticality Noted Date Comments Amoxicillin 11/23/2005 Diphenhydramine Other (Please comment) High 11/29/19 18 Cephalexin High 04/23/2019 Itchy, hives, throat closing, chest tightness. documented as of this encounter (statuses as of 08/27/2024) Medications Montelukast Sodium 10 MG Oral Tablet [...] mouth daily as needed for Constipation. Active documented as of this encounter (statuses as of 08/27/2024) Active Problems Problem Noted Date Diagnosed Date Intestinal postoperative nonabsorption 4 S/P bariatric surgery 08/04/2024 Depression with anxiety 08/04/2024 Encounter for counseling regarding contraception 08/04/2024 [facility] OTHER*[id number] 07/03/2024 Central obesity 06/15/2024 Hyperinsulinemia 09/26/2023 Left-sided [...] as of this encounter (statuses as of 08/27/2024) Resolved Problems Problem Noted Date Diagnosed Date [...] as of this encounter (statuses as of 08/27/2024) Immunizations Name Administration Dates Next Due COVID-19 mRNA, LNP-s, No Pre serve, 2-Dose Series ([employer]) 08/29/2021,10/03/2020,09/12/2020 Hepatitis B, 20+ yrs 04/27/2022,12/15/2021,11/10 MMR [...] PM EDT documented as of this encounter Last Filed Vital Signs Vital Sign Reading Time Taken Comments Blood Pressure 136/73 08/25/2024 12:52 PM EST Pulse 79 08/25/2024 12:52 PM EST Temperature 36.2 C (97.2 F) 08/25/2024 12:[address] Respiratory Rate - - Oxygen Saturation - - Inhaled Oxygen Concentration - - Weight 156 kg (343 lb 14.4 oz) 08/25/2024 12:52 PM EST Height 180.3 cm (5' 11") 08/25/2024 12:52 PM EST Body Mass Index 47.96 08/25/2024 12:52 PM EST documented in this encounter Functional Status * Are you deaf or do you have serious difficulty hearing? Answer Date of Assessment Author No 08/08/2024 5:35 PM EST Destiny Levin RN * Are you blind or do [...] of Assessment Author No 08/08/2024 5:35 PM EST Reinoehl, Destiny, RN * Because of a physical, mental, [...] documented in this encounter Progress Notes * Crissy Montalvo MD - 08/25/2024 12:[address] [facility] Follow up Visit Date: 08/25/2024 07/03/2024 (in office), Visit date not found (telemedicine) Dina Acosta [id number] Age: [age] year old PCP: Cinthya Hatfield DO Referral: Enoc Nugent DO MIS Surgical History Surgeon: Sarah Trejo MD Date of Operation: 08/04/2024 Operation: MODIFIER 22 APPLIES; significant central obesity requiring increased mental and physicaleffort. Laparoscopic single anastomosis duodenal-ileal bypass with sleeve gastrectomy Upper GI endoscopy including esophagus, stomach and or duodenum and jejunum, diagnostic, without collection of specimen Biopsy of liver, wedge Final Path: Final Diagnosis A. Liver, wedge biopsy: Minimal macrovesicular steatosis, 2% No significant fibrosis See microscopic description B. Stomach, gastric body, resection: Benign stomach tissue with no significant pathologic abnormalities HPI: Good progress. Patient is here for 3 week postop follow-up visit. Was readmitted 2 days after surgery. Obtained CT ab/p which was negative and placed back on diet. Was then discharged home aftertolerating diet. Has left sided lateral pain; with movement. Started after her surgery. She is also complaining of tremors that occur once or twice a week; she thinks it could be related to her blood sugar being low. The patient's postoperative outpatient narcotic requirement was: Used none Were remaining narcotic pain medications disposed of at approved location?: N/A Abdominal pain? YES; after eating stage 2B on 08/20/24. Has NO nausea, NO vomiting. Complains of NO fever and NO chills. Bowel movements are small in caliber and formed every day. Patient completed post-discharge Lovenox (enoxaparin)? Yes, 10 days per protocol completed. Any heartburn or regurgitation: NO: Preop None before Are you smoking or using tobacco? NO Are you exercising? YES walking; 30-60 min per day 2/3 times per week DIET is presently a Stage 2B ( Last was advanced) Do you have satiety with small meals. YES ADVERSE EVENTS Was there a postoperative Adverse Event? No Amount of blood transfused within 72 hours of surgery start? 0 units INTRAOP: No PREDISCHARGE: No POST DISCHARGE : No Was there a METABOLIC post-operative adverse event? No Amount of blood transfused within 72 hours of surgery start? 0 units READMISSION: Within 30 days? Yes. readmission greater than 24 hours readmission at primary hospital Total number of readmissions within 90 days = 1 Unplanned ICU Admission within 30 days postop; NO; Transfer to acute care hospital within 30 days postop; NO; REOPERATION: Abdominal: 0-NONE Other: 0-NONE STUDIES: Was a swallow study performed the day of or the day after the procedure? No Was the anastomosis checked with a provocative test to assess for leak? Yes Lab Results Component Value Date/Time WBC 5.56 08/11/2024 06:44 AM WBC 11.56 (H) 06/19/2012 02:53 PM Lab Results Component Value Date/Time HGB 14.5 08/11/2024 06:44 AM HGB 14.6 09/10/2018 12:00 AM HGB 13.1 06/19/2012 02:53 PM Lab Results Component Value Date/Time HCT 42.4 08/11/2024 06:44 AM HCT 38.4 06/19/2012 02:53 PM No results found for: "PLATELET COUNT" Results for orders placed or performed in visit on 04/02/24 HEMOGLOBIN A1C Result Value Ref Range Hemoglobin A1C 5.0 4.0 - 5.6 % Estimated Average Glucose 97 <126 mg/dL Results for orders placed or performed in visit on 04/02/24 INSULIN Result Value Ref Range Insulin 21 3 - 25 uU/mL Results for orders placed or performed in visit on 07/03/24 25-HYDROXY VITAMIN D Result Value Ref Range 25-Hydroxy Vitamin D 32 >19 ng/mL Results for orders placed or performed in visit on 04/02/24 PTH Result Value Ref Range PTH 55 15 - 65 pg/mL Results for orders placed or performed in visit on 05/01/18 TSH Result Value Ref Range TSH 1.83 0.27 - 4.2 uIU/mL Results for orders placed or performed in visit on 09/26/23 TSH WITH FREE T4 IF INDICATED Result Value Ref Range TSH 1.81 0.27 - 4.20 uIU/mL Results for orders placed or performed during the hospital encounter of 08/08/24 BASIC METABOLIC PANEL Result Value Ref Range BUN 4 (L) 6 - 20 mg/dL CREATININE 0.6 0.5 - 1.0 mg/dL EGFR >90 >=60 mL/min SODIUM 139 135 - 146 mmol/L POTASSIUM 3.8 3.5 - 5.1 mmol/L CHLORIDE 105 98 - 107 mmol/L CO2 20 (L) 22 - 32 mmol/L ANION GAP 14 7 - 15 mmol/L GLUCOSE 72 70 - 120 mg/dL CALCIUM 8.7 8.4 - 10.2 mg/dL No results found for: "URIC ACID" Results for orders placed or performed in visit on 04/02/24 COMPREHENSIVE METABOLIC PANEL Result Value Ref Range BUN 11 6 - 20 mg/dL CREATININE 0.8 0.5 - 1.0 mg/dL EGFR >90 >=60 mL/min SODIUM 140 135 - 146 mmol/L POTASSIUM 4.3 3.5 - 5.1 mmol/L CHLORIDE 106 98 - 107 mmol/L CO2 24 22 - 32 mmol/L ANION GAP 10 7 - 15 mmol/L GLUCOSE 94 70 - 120 mg/dL Albumin 3.7 (L) 3.8 - 5.0 g/dL AST 13 10 - 35 U/L Alkaline Phosphatase 61 35 - 130 U/L Bilirubin, Total 0.4 <=1.2 mg/dL CALCIUM 9.1 8.4 - 10.2 mg/dL Protein 5.9 (L) 6.0 - 8.3 g/dL ALT 22 10 - 35 U/L Results for orders placed or performed in visit on 09/15/18 LIPID PANEL Result Value Ref Range HOURS FASTING >8 HOURS hours Triglycerides 194 <200 mg/dL Cholesterol 173 <200 mg/dL HDL Cholesterol 39 (L) >39 mg/dL Cholesterol-HDL Ratio 4.4 LDL Cholesterol 95 0 - 129 mg/dL Results for orders placed or performed in visit on 04/02/24 LIPID PANEL WITH DIRECT LDL IF TG IS HIGH Result Value Ref Range Triglycerides 196 (H) <=174 mg/dL Cholesterol 206 (H) <200 mg/dL HDL Cholesterol 47 (L) >49 mg/dL Non-HDL Cholesterol 159 <=159 mg/dL LDL Cholesterol 120 <=129 mg/dL NEW STUDIES: 08/08/2024 CT A/P FINDINGS LINES AND DEVICES: None. LOWER CHEST: Atelectasis LIVER: Unremarkable. BILIARY: Unremarkable. PANCREAS: Unremarkable. SPLEEN: Unremarkable. ADRENALS: Unremarkable. KIDNEYS/URETERS: Urinary contrast excretion. BLADDER: Unremarkable. REPRODUCTIVE ORGANS: Unremarkable. GASTROINTESTINAL TRACT: Status post single anastomosis duodenal switch. Overall improved bowel distension compared to prior with small residual loop of mildly dilated biliary pancreatic limb small bowel in the left upper quadrant measuring up to 4.6 centimeters. Duodenal distension is diminished/resolved. Findings may reflect resolving postoperative ileus or similar. No pneumatosis or portal venou s gas is observed. Enteric contrast has traversed to the level of the jejunum. There is a small amount of stool within the distal colon and rectum. Enteric contrast is seen within both jejunal limbs as seen on series 2, image 135. LYMPH NODES: No abominal or pelvic lymphadenopathy by CT size criteria. VESSELS: Unremarkable. PERITONEUM/RETROPERITONEUM: There is a small amount of fluid layering dependently in the lower abdomen/pelvis which may reflect resolving postoperative changes and/or sequela of ovarian follicle rupture. No discrete rim enhancement. No free air. ABDOMINAL WALL/SOFT TISSUES: No focal fluid collection or free air. There is a small amount of air in the right ventral abdominal wall likely from recent subcutaneous injection. BONES: No acute fracture, malalignment or focal osseous destruction. Lumbar spine degenerative changes are observed. IMPRESSION IMPRESSION 1. Minimal bowel distension, overall improved from prior, likely resolving postoperative ileus. Correlate clinically. Liquid enteric contrast is observed within both small bowel limbs. Repeat exam can be obtained if symptoms progress/worsen or fail to resolve. 2. Additional findings as above. Current Outpatient Medications Medication Sig Dispense Refill [...] by mouth daily as needed for Constipation. No current facility-administered medications for this visit. MVI YES Ca++ NO B12 NO Allergies as of 08/25/2024 - Reviewed 08/25/2024 Allergen Reaction Noted Diphenhydramine Other (Please comment) 11/28/2017 Keflex [cephalexin] 04/23/2019 Amoxicillin 11/23/2005 PHYSICAL EXAM: Highest weight within one year at [facility]: 420 lbs; Date: 12/25/2023 Weight closest to surgery: 373 lbs; Date: 08/08/2024 08/25/2024 BP 136/73 | Pulse 79 | Temp 36.2 C (97.2 F) (Tympanic) | Ht 1.803 m (5' 11") | Wt (!) 156 kg (343 lb 14.4 oz) | BMI 47.96 kg/m | BSA 2.8 m General: Alert and appropriate. Well-appearing and in no distress Abdomen: Soft; Nontender; NO Distention; NO Organomegaly; NO Masses; Normal active bowel sounds Hernia; NONE Drains: No Lower Extremities: NO Calf tenderness BILATERAL; NO Lower Extremity Swelling BILATERAL Impression: Satisfactory progress after, Surgeon: Sarah Trejo MD Date of Operation: 08/04/2024 Operation: MODIFIER 22 APPLIES; significant central obesity requiring increased mental and physicaleffort. Laparoscopic single anastomosis duodenal-ileal bypass with sleeve gastrectomy Upper GI endoscopy including esophagus, stomach and or duodenum and jejunum, diagnostic, without collection of specimen Biopsy of liver, wedge Would you have this surgery again? YES Plan: 1) Diet: Stage 2B 2) Activity: Limited to lifting less than 25 pounds. No deep bending and stretching for 2 more weeks 3) Follow up visit scheduled in Bariatric Surgical Clinic: 4 months 4) Wound: Healing well and may be left open to air. She may shower normally. 5) Return to work/school: September 04 6) Continue taking omeprazole for a total of 90 days after surgery. 7) Tremors: follow-up with PCP and/or nutrition to see if related to diet as it appears to be hypoglycemic episodes. Advised patient to consider obtaining test strips to check her sugar during those periods. 8) LUQ pain: seems to be musculoskeletal in etiology. Will continue to monitor for now. Crissy Patel MD; PGY-1 [facility] 08/25/2024 I have discussed the patient's management with the resident/fellow physician and agree with the note. Please refer to the documented findings and plan of care. This patient's visit today consisted ofan evaluation. I was present and confirmed the findings of the history and exam. Sarah Trejo M.D. Minimally Invasive Foregut and Bariatric Surgeon [facility] Office documented in this encounter Plan of Treatment Upcoming Encounters Date Type Department Care Team (Late st Contact Info) Description 09/01/2024 10:20 AM EST Telemedicine Nutrition & Weight Management, [place] [address] [place] [address] Dina Urbano CRNP [address] [place] [address] 09/01/2024 1:50 PM EST Telemedicine Nutrition & Weight Management, [facility] [address] [place] [address] Anjana Saunders RDN [address] [place] [address] 10/02/2024 8:00 AM EST Nutrition Services Nutrition & Weight Management, [facility] [address] [facility] [place] [address] Anjana Saunders RDN [address] [place] [address] 10/02/2024 9:00 AM EST Office Visit Nutrition & Weight Management, [facility] [address] [facility] [place] [address] Josie Dennison PA-C [address] [place] [address] 10/23/2024 10:00 AM EST Office Visit Gynecology/Obstetrics [facility] [address] [place] [address] Kortney Fairbakns CRNP [address] [place] [address] 12/14/2024 3:20 PM EDT Telemedicine Nutrition & Weight Management, [place] [address] [place] [address] Debbie Wing CRNP [address] [place] [address] 12/24/2024 1:00 PM EDT Office Visit General Surgery, [place] [address] [place] [address] Sarah Trejo MD [address], [place] [id number] Health Maintenance Due Date Last Done Comments [...] as of this encounter Visit Diagnoses Diagnosis Class 3 severe obesity due to excess calories without serious comorbidity with body mass index (BMI) of 45.0 to 49.9 in adult (HCC)- Primary S/P bariatric surgery Bariatric surgery status Postop check Follow-up examination, following unspecified surgery Central obesity Localized adiposity Left upper quadrant abdominal pain documented in this encounter Advance Directives * Full Code (Latest Code Status on File) Date Activated Date Inactivated Comments 08/08/2024 5:37 PM 08/11/2024 3:51 PM Question Answer Comments Discussion of [employer] dawn occurred with: Not Discussed due to patient's condition * Full Code Date Activated Date Inactivated Comments 08/04/2024 1:21 PM 08/06/2024 2:30 PM Question Answer Comments Discussion of [employer] danw occurred with: Not Discussed due to patient's condition * Full Code Date Activated Date Inactivated Comments 08/04/2024 6:41 AM 08/04/2024 1:21 PM Question Answer Comments Discussion of [employer] dawn occurred with: Not Discussed due to patient's condition Care Teams Land Surveyor Assistant Relationship Specialty Start Date End Date Cinthya Hatfield DO [address] [place] [address] PCP - General Family Medicine 01/29/24 documented as of this encounter
--- OUTSIDE RECORDS SUMMARY | 2024-09-17 06:10 | External Medical Summary | Summary of Care ---
Author Name Unknown Organization [facility] Address [address] [place] [address] Phone [phone] Care Team Providers Care Utilization Reviewer Name Role Phone Cinthya Hatfield DO Primary Care Provider [phone] Reason for Visit * Reason Onset Date Comments Hospital Follow-Up Patient is he re today for a hospital follow up. Patient states she is feeling better in terms of post surgery but now has a head cold. Patient would like to discuss pain in the shoulder, under the arm and down into the elbow that began last evening. Hospital Follow-Up 08/25/2024 Encounter Details Date Type Department Care Team (Late st Contact Info) Description 08/25/2024 8:20 AM EST Office Visit [facility] [address] [place] [phone] Sunny Navarro MD [address] [place] [address] Hospital discharge follow-up* Allergies Active Allergy Reactions Criticality Noted Date Comments Amoxicillin 11/23/2005 Diphenhydramine Other (Please comment) High 11/29/19 18 Cephalexin High 04/23/2019 Itchy, hives, throat closing, chest tightness. documented as of this encounter (statuses as of 08/25/2024) Medications Montelukast Sodium 10 MG Oral Tablet (Singulair) Take 1 Tablet by mouth in the morning. 90 Tablet 3 01/11/20 24 Active Topiramate 25 MG Oral Tablet [...] as of this encounter (statuses as of 08/25/2024) Active Problems Problem Noted Date Diagnosed Date Intestinal postoperative nonabsorption 4 Obesity, morbid (more than 1 00 lbs over ideal weight or BMI > 40) 08/06/2024 S/P bariatric surgery 08/04/2024 Depression with anxiety 08/04/2024 Encounter for counseling regarding contraception 08/04/2024 Pre-operative examination 07/03/2024 [facility] OTHER*[id number] 07/03/2024 Central obesity 06/15/2024 Super obese 06/12/2024 [...] as of this encounter (statuses as of 08/25/2024) Resolved Problems Problem Noted Date Diagnosed Date [...] as of this encounter (statuses as of 08/25/2024) Immunizations Name Administration Dates Next Due COVID-19 mRNA, LNP-s, No Pre serve, 2-Dose Series (GOGETMi / ?.??) 08/29/2021,10/03/2020,09/12/2020 Hepatitis B, 20+ yrs 04/27/2022,12/15/2021,11/10 MMR [...] Sign Reading Time Taken Comments Blood Pressure 118/68 08/25/2024 8:02 AM EST Pulse 90 08/25/2024 8:02 AM EST Temperature 35.7 C (96.3 F) 08/25/2024 8:02 AM ES T Respiratory Rate 16 08/25/2024 8:02 AM EST Oxygen Saturation 97% 08/25/2024 8:02 AM EST Inhaled Oxygen Concentration - - Weight 157.3 kg (346 lb 12.8 oz) 08/25/2024 8:02 AM EST Height 180.3 cm (5' 11") 08/25/2024 8:02 AM EST Body Mass Index 48.37 08/25/2024 8:02 AM EST documented in this encounter Functional Status * Are you deaf or do you have serious difficulty hearing? Answer Date of Assessment Author No 08/08/2024 5:35 PM EST Destiny Levin RN * Are you blind or do you have serious difficulty seeing, even when wearing glasses? Answer Date of Assessment Author No 08/08/2024 5:35 PM EST Destiny Levin RN * Do you have serious difficulty walking or climbing stairs? (5 years old or older) Answer Date of Assessment Author No 08/08/2024 5:35 PM EST Destiny Levin RN * Do you have difficulty dressing [...] documented in this encounter Progress Notes * Sunny Navarro MD - 08/25/2024 8:28 AM EST Subjective: Dina Acosta is a 34 year old female. Chief Complaint Patient presents with Hospital Follow-Up Patient is here today for a hospital follow up. Patient states she is feeling better in terms of post surgery but now has a head cold. Patient would like to discuss pain in the shoulder, under the arm and down into the elbow that began last evening. HPI: 34-year-old seen today in follow-up after recent [facility] hospitalization August 08 through August 11, 2024. She had undergone ALVARO procedure for gastric sleeve bariatric surgeryat [place] on August 04, 2024. She had developed upper abdominal discomfort with vomiting so presented to local [facility] Emergency Room for evaluation. Cat scan showed questionable small-bowel obstruction Um with concern at the anastomosis surgical site. She was transferred via ambulance to [facility] where she was admitted. Repeat CT scan ultimately did not show any obstruction. She was treated with IV fluids and initially was kept NPO. Gradually she was allowed to take some fluids and tolerated these in in ultimately was discharged. Since discharge she has done okay. She has been able to advance her diet per her initial recommendations after her bariatric procedure. She is doing a lot of scrambled eggs and protein shakes. She has not had any vomiting in his having regular bowel movements. She has not had fever. She is concerned that she may have a sinus infection as per the last 4 days she has had sinus pressure and what shecalls purulent drainage. Has a slight cough. Also has a left shoulder left thorax discomfort especially with movement. She had that at the recent hospitalization as well. No definite etiology was ever determined. It has not worsened. Patient Active Problem List Diagnosis Class 3 severe obesity due to excess calories without serious comorbidity with body mass index (BMI) of 50.0 to 59.9 in adult ([facility]) PCOS (polycystic ovarian syndrome) Abdominal pain Migraine with aura and without status migrainosus, not intractable ROSANNE (generalized anxiety disorder) Hyperinsulinemia Left-sided low back pain with left-sided sciatica Central obesity Pre-operative examination JOHNSON RESEARCH OTHER*[id number] Super obese S/P bariatric surgery Depression with anxiety Encounter for counseling regarding contraception Intestinal postoperative nonabsorption Obesity, morbid (more than 100 lbs over ideal weight or BMI > 40) ([facility]) Current Outpatient Medications Medication Sig Dispense Refill [...] No current facility-administered medications for this visit. Review of patient's allergies indicates: Allergen Reactions Diphenhydramine Other (Please comment) Keflex [Cephalexin] Itchy, hives, throat closing, chest tightness. Amoxicillin Review Of Systems: Skin: negative Eyes: negative Ears/Nose/Throat: negative Respiratory: cough Cardiovascular: negative Gastrointestinal: negative, see above Genitourinary: negative Musculoskeletal: see above Neurologic: negative Psychiatric: negative Hematologic/Lymphatic/Immunologic: negative Endocrine: negative Objective: BP 118/68 (BP Site: Right Arm, BP Position: Sitting, BP Cuff Size: Large) | Pulse 90 | Temp 96.3 F (35.7 C) (Tympanic) | Resp 16 | Ht 5' 11" (1.803 m) | Wt (!) 346 lb 12.8 oz (157.3 kg) | SpO2 97% | BMI 48.37 kg/m | BSA 2.81 m Physical Exam: CONST: alert, pleasant, no acute distress HEAD: normocephalic, atraumatic NECK: supple, soft, no adenopathy EARS: canals normal, TMs left-some injection centrally but no signs of infection. Right clear Eyes - PERRLA, EOM'I OROPHARYNX: clear, no swelling or erythema, moist CV: regular rate and rhythm, no murmur CHEST: clear to auscultation bilaterally, no rales or wheezing ABD: soft, non tender, non distended, no masses or hepatosplenomegaly. Multiple post surgical stab wounds all look clean and without erythema or drainage EXT: She has discomfort when she tries to abduct the left shoulder as well as with internal rotation. She has decreased strength at 90 abduction. NEURO: AAOx3, no gross focal deficits, cerebellar signs normal, affect appropriate MENTAL STATUS: no evidence of thought disorder, no delusional thought, no evidence of paranoia, thought is non-tangential. SKIN: no rash or significant lesions. There was no evidence of shingles rash in the left shoulder or thorax. ASSESSMENT/PLAN: 1. Postoperative ileus-markedly improved. She should continue diet as outlined by her bariatric surgery team. 2. Left shoulder and thorax pain-I think this is musculoskeletal. I did not recommend anything special other than tincture of time 3. Probable viral URI-I really do not think she has a bacterial sinus infection given short duration and no preceding URI. But, I told her that if she continues with the nasal drainage (purulent) through the end of the week i.e. 3 days time, that if she messages me I would start her on antibiotic. I would shoes azithromycin as she is allergic to Keflex and amoxicillin. I want to avoid doxycyclinebecause of the recent bariatric surgery. Follow up as needed. I spent a total of 20-29 minutes (exact time 25 mins) minutes on the date of service in preparation, delivery, and documentation of the care provided to Dina Acosta excluding any time spent in performance of separately billed services. RACHEAL LozanoUBJECTIVE: Dina Acosta is a 34 year old female. documented in this encounter Nursing Notes * Precious Carbajal LPN - 08/25/2024 8:06 AM EST The patient has been properly identified by confirmation of name and date of . Chief Complaint Patient presents with Hospital Follow-Up Patient is here today for a hospital follow up. Patient states she is feeling better in terms of post surgery but now has a head cold. Patient would like to discuss pain in the shoulder, under the arm and down into the elbow that began last evening. documented in this encounter Plan of Treatment Upcoming Encounters Date Type Department Care Team (Late st Contact Info) Description 08/25/2024 1:00 PM EST Office Visit General Surgery, [address] [address] Sarah Treoj MD [address] [place] [address] 09/01/2024 10:20 AM EST Telemedicine Nutrition & Weight Management, [address] [address] Dina Urbano CRNP [address] [place] [address] 09/01/2024 1:50 PM EST Telemedicine Nutrition & Weight Management, [address] [place], [place] [address] Anjana Saunders RDN [address] [facility] [place] [address] 10/02/2024 8:00 AM EST Nutrition Services Nutrition & Weight Management, [facility] [address] [facility] [place] [address] Anjana Saunders RDN [facility] [place] [address] 10/02/2024 9:00 AM EST Office Visit Nutrition & Weight Management, [facility] [address] [facility] [place] [address] Josie Dennison PA-C [address] [facility] [place] [address] 12/14/2024 3:20 PM EDT Telemedicine Nutrition & Weight Management, [place] [address] [place], [place] [id number] Debbie Wing CRNP [address] [place] [address] Health Maintenance Due Date Last Done Comments [...] as of this encounter Visit Diagnoses Diagnosis Hospital discharge follow-up- Primary Other follow-up examination documented in this encounter Advance Directives * [...] Discussed due to patient's condition Care Teams Utilization Reviewer Relationship Specialty Start Date End Date Cinthya Hatfield DO [address] [place] [address] PCP - General Family Medicine 01/29/24 documented as of this encounter
--- OUTSIDE RECORDS SUMMARY | 2024-09-17 06:10 | External Medical Summary | Summary of Care ---
Author Name Unknown Organization [facility] Address [address] [place] [address] Phone [phone] Care Team Providers Care Construction Executive Name Role Phone Cinthya Hatfield DO Primary Care Provider Reason for Visit * Reason Comments Post-Op Encounter Details Date Type Department Care Team (Latest Contact Info) Description 09/01/2024 1:50 PM EST Telemedicine Nutrition & Weight Management, [facility] [address] [place] [address] Anjana Saunders RDN [address] [place] [address] Intestinal postoperative nonabsorption*; S/P bariatric surgery Allergies Active Allergy Reactions [...] for counseling regarding contraception 08/04/2024 [facility] OTHER*[id number] 07/03/2024 Central obesity 06/15/2024 Hyperinsulinemia 09/26/2023 Left-sided [...] mRNA, LNP-s, No Pre serve, 2-Dose Series (Attune) 08/29/2021,10/03/2020,09/12/2020 Hepatitis B, 20+ yrs 04/27/2022,12/15/2021,11/10 MMR [...] No 08/17/2024 Does the household have a [facility] source of income? (Household - for ages [...] documented in this encounter Progress Notes * Chip Anjana, MARYLOUN - 09/01/2024 1:53 PM EST Nutrition & Weight Management / Bariatric Surgery Nutrition Post-Operative Stage 3 Follow-Up [facility] Name: Dina Acosta Location: NUTRITION & WEIGHT MANAGEMENT, [facility] Date: 09/01/2024 Time: 1:53 PM Patient was identified at visit by name and date. Patient location: HOME. I was in a hospital or clinic location. After connecting through televideo,patient was verified with two unique identifiers. Patient (or authorized legal manufacturers service representative) was then informed that this was a Telemedicine visit and being conducted confidentially over secure lines. Methods to assure confidentiality were taken. Patient acknowledged consent and understanding of pr ivacy and security of the Telemedicine visit. The patient agreed to participate. S/p: Caren 08/04/[address] Trejo 09/01/2024 N/V still doing well, no abd pain Can feel shaky if out and about, will take a shake with her when shopping Will be going back to work soon 08/20/2024 7-10 day post op Was readmitted 08/08/2024 with acute onset of abd pain, N/V, feeling better now Reports protein intake of 70 grams per day and fluid intake of 40 oz per day. Eggs were feeling stuck, pt reporting she was chewing well Tolerates cottage cheese well Food intolerance: no N/V: no Dizziness upon standing: no Dumping: no Food diaries: no journal but is keeping track of how often she is eating, measuring out her foods Exercise: started using her resistance band but can feel weak/fatigued ,doing a lot of walking Diet level: stage 2B, advancing to stage 3 Initial Clinic Weight: 410 lbs Date: 10/17/2023 Presurgery weight: 360 lbs Stage 2B Weight today: 345 lbs self reported, - 15 lbs or - 4.1 % TBW Since Surgery Stage 3 Weight today:338 lbs, -22 lbs or -6.1 % TBW since surgery Wt Readings from Last 10 Encounters: 08/25/24 (!) 156 kg (343 lb 14.4 oz) 08/25/24 (!) 157.3 kg (346 lb 12.8 oz) 08/08/24 (!) 169.3 kg (373 lb 3.8 oz) 08/05/24 (!) 179 kg (394 lb 10 oz) 07/03/24 (!) 171 kg (376 lb 14.4 oz) 06/12/24 (!) 174.6 kg (385 lb) 05/01/24 (!) 174.2 kg (384 lb) 04/23/24 (!) 178.6 kg (393 lb 12.8 oz) 04/02/24 (!) 176.8 kg (389 lb 12.8 oz) 01/29/24 (!) 184.4 kg (406 lb 8 oz) Assessed needs per bariatric protocol: Super B complex, Childrens MVI has been taking one a day based on the bottle but did say she has her papers that indicate MVI BID. We had a lengthy discussion about using bariatric advantage products to simplify her supplementation intake. Will send ALVARO handouts. Reviewed diet level and materials provided. Patient participates in discussion and can identify foods allowed. Reviewed sample menu, moist cooking (importance of moist protein foods emphasized), and rate of eating. Emphasized importance of chewing to enhance satiety and intended weight loss. No drinking 30 minutes before or after solid foods. Nutrition diagnosis: Impaired nutrient utilization related to bariatric surgery as evidenced by need for specialized diet/vitamin guidelines. Plan: 1. Advance to Stage 3. -Review diet handout for details or page 11 in your program book 2. Continue your complete multivitamin with iron (NO GUMMIES) -->Take one tablet twice a day: one AM one PM 3. Continue your B Complex OR Thiamine 50-100 mg supplement 4. Start Vitamin A,D, E K: -->See handout provided for dosing needs 4. Continue to increase exercise/activity as tolerated. 5. Follow-up in 4 weeks: 10/02/2024 6. Patient advised to use [employer] portal to send any follow up questions. Time spent : 15 minutes. Anjana Saunders RDN documented in this encounter Plan of Treatment Upcoming Encounters Date Type Department Care Team (Late st Contact Info) Description 10/02/2024 8:00 AM EST Nutrition Services Nutrition & Weight Management, [facility] [address] [place] [address] Anjana Saunders RDN [address] [place] [address] 10/02/2024 9:00 AM EST Office Visit Nutrition & Weight Management, [facility] [address] [facility] [place] [address] Josie Dennison PA-C [address] [place] [address] 10/23/2024 10:00 AM EST Office Visit Gynecology/Obstetrics [facility] [address] [place] [address] Kortney Fairbanks CRNP [address] [place] [address] 12/14/2024 3:20 PM EDT Telemedicine Nutrition & Weight Management, [place] [address] [place] [address] Debbie Wing CRNP [address] [place] [phone] 12/24/2024 1:00 PM EDT Office Visit General Surgery, [place] [address] [place], [place] [phone] Sarah Trejo MD [address] [place], [place] [phone] Health Maintenance Due Date Last Done Comments [...] as of this encounter Visit Diagnoses Diagnosis Intestinal postoperative nonabsorption- Primary Other and unspecified postsurgical nonabsorption S/P bariatric surgery Bariatric surgery status documented [...] Discussed due to patient's condition Care Teams Construction Executive Relationship Specialty Start Date End Date Cinthya Hatfield DO [address] [facility] [place] [address] PCP - General Family Medicine 01/29/24 documented as of this encounter
--- OUTSIDE RECORDS SUMMARY | 2024-09-17 06:11 | External Medical Summary | Summary of Care ---
Author Name Unknown Organization [facility] Address [address] [place] [address] Phone [phone] Care Team Providers Care Joiner Name Role Phone RosaCinthya reese Jeremy OROZCO Primary Care Provider [phone] Encounter Details Date Type Department Care Team (Latest Contact Info) Description 08/08/2024 12:50 PM EST - 08/08/2024 5:34 PM EST Hospital Encounter Radiology Film File [address] [place] [address] Arrived Discharge Disposition: Home - Self Care Allergies Active Allergy Reactions Criticality Noted Date Comments Amoxicillin 11/23/2005 Diphenhydramine Other (Please comment) High 11/29/19 18 Cephalexin High 04/23/2019 Itchy, hives, throat closing, chest tightness. documented as of this encounter (statuses as of 08/10/2024) Medications Montelukast Sodium 10 MG Oral Tablet (Singulair) Take 1 Tablet by mouth in the morning. 90 Tablet 3 09/26/19 24 Suspended Topiramate 25 MG Oral Tablet (Topamax) Take 1 Tablet by mouth in the morning and 1 Tablet at noon and 1 Tablet in the evening. 90 Tablet 2 04/23/20 24 Suspended Escitalopram Oxalate 10 MG Oral Tablet (Lexapro)Indicati ons:Adjustment disorder with anxious mood Take 1 Tablet by mouth in the morning. 30 Tablet 2 06/25/20 24 Suspended Enoxaparin Sodium 60 MG/0.6ML Injection Solution Prefilled Syringe (Lovenox)Indicati ons:Hyperinsuline milagro,PCOS (polycystic ovarian syndrome),Central obesity,Pre-opera tive examination,Class 3 severe obesity due to excess calories without serious comorbidity with body mass index (BMI) of 60.0 to 69.9 in adult (HCC),Class 3 severe obesity due to excess calories without serious comorbidity with body mass index (BMI) of 50.0 to 59.9 in adult (HCC) Inject the full contents of 1 syringe (60 mg) under the skin every 12 hours for 10 days after procedure 12 mL 07/03/20 24 Suspended Acetaminophen 500 MG Oral Tablet (Tylenol) 2 caps every 8 hours for 3 days, then 1 cap every 4 hours as needed for pain. Do not exceed 3000mg acetaminophen (Tylenol) every 24 hours. 1 Tablet 08/05/20 Suspended Ondansetron 4 MG Oral Tablet Disintegrating (Zofran) Place 1 Tablet on tongue every 8 hours as needed for Other (post op nausea/vomiting) . dissolve on tongue. 1 Tablet 08/05/20 24 Suspended Omeprazole 20 MG Oral Capsule Delayed Release (PriLOSEC)Indicat ions:GERD Take 1 Capsule by mouth in the morning. For 90 days after surgery. 90 Capsule 08/06/20 24 2024 Suspended Simethicone 80 MG Oral Tablet Chewable (Mylicon) Chew and swallow 2 tablets by mouth every 8 hours as needed for gas or bloating. 30 Tablet 4 9:04 AM EST 08/06/20 24 Suspended Methocarbamol 500 MG Oral Tablet (Robamol) Take 1 Tablet by mouth every 8 hours as needed for Muscle spasms. 10 Tablet 4 9:04 AM EST 08/06/20 24 Suspended documented as of this encounter (statuses as of 08/10/2024) Active Problems Problem Noted Date Diagnosed Date Intestinal postoperative nonabsorption Obesity, morbid (more than 1 00 lbs over ideal weight or BMI > 40) 08/06/2024 S/P gastric bypass 08/04/2024 Depression with anxiety 08/04/2024 Encounter for counseling regarding contraception 08/04/2024 Pre-operative examination 07/03/2024 JOHNSON RESEARCH OTHER*[id number] 07/03/2024 Central obesity 06/15/2024 Super obese 06/12/2024 [...] as of this encounter (statuses as of 08/10/2024) Resolved Problems Problem Noted Date Diagnosed Date [...] as of this encounter (statuses as of 08/10/2024) Immunizations Name Administration Dates Next Due COVID-19 mRNA, LNP-s, No Pre serve, 2-Dose Series (Anonymous You) 08/29/2021,10/03/2020,09/12/2020 Hepatitis B, 20+ yrs 04/27/2022,12/15/2021,11/10 MMR [...] Answer Date Recorded PHQ Adult Total Score 5 04/24/2024 Hunger Vital Sign Answer Date Recorded Within the past 12 months, y ou worried that your food would run out before you got the money to buy more. Patient declined Within the past 12 months, t he food you bought just didn't last and you didn't have money to get more. Patient declined 05/2024 Childcare Answer Date Recorded Do you feel overwhelmed with taking care of a child, family member or friend? No 04/24/2024 Does your family need help f inding childcare? (Household - for ages 0-17 years) Not on file 04/24/2024 Clothing Answer Date Recorded Have you been unable to get clothing when it was really needed? No 04/24/2024 Is your family able to get c lothes or diapers when needed? (Household - for ages 0-17 years) Not on file 04/24/2024 Personal Safety Answer Date Recorded Do you feel unsafe or have concerns for your saf ety? No 08/08/2024 Do you have concerns for you r family's safety? (Household - for ages 0-17 years) Not on file 08/08/2024 Utilities Answer Date Recorded Do you have trouble paying y our heating, water, or electric bill? No 08/08/2024 Is your family able to pay t he heat, water, or electric bill? (Household - for ages 0-17 years) Not on file 08/08/2024 Does your family have access to good internet? (Household - for ages 0-17 years) Not on file 08/08/2024 Employment Status Answer Date Recorded Are you unemployed or without regular income? No 04/24/2024 Does the household have a re gular source of income? (Household - for ages 0-17 years) Not on file 04/24/2024 Social Connections Answer Date Recorded How often do you feel lonely or isolated from th ose around you? Rarely 04/24/2024 Financial Resource Strain Answer Date R ecorded Do you have any trouble payi ng for your medications, or do you think you might in the future? No 04/24/2024 Does your family have troubl e paying for medicine? (Household - for ages 0-17 years) Not on file 04/24/2024 Transportation Needs Answer Date Record ed Do you have trouble getting a ride to medical visits or work? (Adult - for ages 18 years and over) Not on file 08/08/2024 Does your family have a hard time getting a ride to doctors visits? (Household - for ages 0-17 years) Not on file 08/08/2024 Has lack of transportation k ept you from medical appointments, meetings, work, or from getting things needed for daily living? Check all that apply. No 08/08/2024 Do you (or your family) have trouble finding or paying for a ride (transportation)? (Household - for ages 0-17 years) Not on file 08/08/2024 Housing Stability Answer Date Recorded Do you currently live in a s helter or have no steady place to sleep at night? No 08/08/2024 Do you think you are at risk of becoming homeless? (Adult - for ages 18 years and over) Not on file 08/08/2024 Does your family worry about paying for your home or becoming homeless? (Household - for ages 0-17 years) Not on file 1 10/08/2023 Are you homeless or worried that you might be in the future? No 08/08/2024 Are you (or your family) alexi eless or worried that you might be in the future? (Household - for ages 0-17 years) Not on file Food Insecurity Answer Date Recorded Do you need food for this week? No 08/08/2024 Are you able to get enough f ood for your family? (Household - for ages 0-17 years) Not on file 08/08/2024 Does your family need food t his week? (Household - for ages 0-17 years) Not on file 08/08/2024 Do you always have enough fo od for your family? (Household - for ages 0-17 years) Not on file 08/08/2024 Comments No Sex and Gender Information Value [...] Destiny León RN documented in this encounter Plan of Treatment Upcoming Encounters Date Type Department Care Team (Late st Contact Info) Description 08/20/2024 9:30 AM EST Office Visit General Surgery, [place] [address] [place] [address] Sarah Trejo MD [address] [place] [address] 08/20/2024 11:20 AM EST Office Visit Nutrition & Weight Management, [place] [address] [place] [address] Kaylynn Black PA-C [address] [place] [address] 08/25/2024 8:40 AM EST Nutrition Services Nutrition & Weight Management, [facility] [address] [facility] [place] [address] Anjana Saunders RDN [address] [place] [address] 09/01/2024 10:20 AM EST Telemedicine Nutrition & Weight Management, [place] [address] [place] [address] Dina Urbano CRNP [address] [place] [address] 09/01/2024 1:50 PM EST Telemedicine Nutrition & Weight Management, [facility] [address] [facility] [place] [address] Anjana Saunders RDN [address] [place] [address] Health Maintenance Due Date Last Done Comments Pneumococcal Vaccine: Pediatrics (0 to 5 Years) and At-Risk Patients (6 to 64 Years) (1 of 2 - PCV) 1996 COVID-19 Vaccine ( season) 2024 08/29/2021, 10/03/2020, 09/12/2020 Influenza Vaccine (FLU shot) (#1) 2024 07/19/2022, 07/19/2022, 06/21/2021, Additional history exists DTap/Tdap Vaccines (2 - Td or Tdap) 05/28/2024 05/28/2014 Depression Monitoring 04/24/2025 04/24/2024, 024 PAP SMEAR-EVERY 2 YRS,AGES 18-100 04/23/2026 04/23/2024, 04/12/2021, 05/16/2018, Additional history exists Hepatitis B Vaccine Completed 04/27/2022, 12/15/2021, 11/10/2021 HPV (Gardasil) Vaccine Aged Out No lo nger eligible based on patient's age to complete this topic MENINGOCOCCAL (MENACTRA/MENVEO) Aged Out No longer eligible based on patient's age to complete this topic documented as of this encounter Medical Devices Not on filedocumented as of this encounter Procedures Procedure Name Priority Date/Time Associated Diagnosis Comments RADIOLOGY EXAM - CT (IMAGES ONLY, NO REPORT) Routine 08/08/2024 12:50 PM EST documented in this encounter Results * RADIOLOGY EXAM - CT (IMAGES ONLY, NO REPORT) (08/08/2024 12:50 PM EST) 08/08/2024 12:4 1 PM EST Narrative Scheduling, Silent - 08/09/2024 8:09 AM EST This is an imaging study not interpreted or resulted by a [facility] or [facility] contracted radiologist. us Elizabeth Brink MD RAD CT Final Result documented in this encounter Advance Directives * Full Code (Latest Code Status on File) Date Activated Date Inactivated Comments 08/08/2024 5:37 PM Question Answer Comments Discussion of Advance [...] Discussed due to patient's condition Care Teams Joiner Relationship Specialty Start Date End Date Cinthya Hatfield DO [address] [place] [address] PCP - General Family Medicine 01/29/24 documented as of this encounter
--- OUTSIDE RECORDS SUMMARY | 2024-09-17 06:11 | External Medical Summary ---
Author Name Unknown Address Unknown Organization K01:[facility] - [facility] [address] [place] [address] Laboratory Report Ordering Provider Test Date Status SUSAN TOVAR 08/10/2024 05:43:00 Final Observation Date Value Abnormality Reference (Units ) Status BUN 08/10/2024 05:43:00 4 Below low normal 6-20 (mg/dL) Final Creatinine 08/10/2024 05:43:00 0.7 0.5-1.0 (mg/dL) Final Glomerular filtration rate/1.73 sq M.predicted [Volume Rate/Area] in Serum, Plasma or Blood by Creatinine-based formula (CKD-EPI) 08/10/2024 05:43:00 >90 >=60 (mL/min) Final eGFR is calculated based on the CKD-EPI 2020 equation. Sodium 08/10/2024 05:43:00 139 135-146 (m mol/L) Final Potassium 08/10/2024 05:43:00 3.6 3.5-5.1 (m mol/L) Final Cl 08/10/2024 05:43:00 105 98-107 (mm ol/L) Final CO2 08/10/2024 05:43:00 21 Below low normal 22- 32 (mmol/L) Final Anion gap 08/10/2024 05:43:00 13 7-15 (mmol /L) Final Glucose 08/10/2024 05:43:00 70 70-120 (mg /dL) Final Calcium 08/10/2024 05:43:00 8.2 Below low normal 8.4 -10.2 (mg/dL) Final Performing Location [facility] - [address] [place] [address]
--- OUTSIDE RECORDS SUMMARY | 2024-09-17 06:11 | External Medical Summary | Summary of Care ---
Author Name Unknown Organization [facility] Address [address] [place] [address] Phone [phone] Care Team Providers Care Roofing Subcontractor Name Role Phone Cinthya Hatfield DO Primary Care Provider [phone] Encounter Details Date Type Department Care Team (Late st Contact Info) Description 08/10/2024 Population Health External Data Unspecified Department Allergies Active Allergy Reactions Criticality Noted Date [...] every 24 hours. 1 Tablet 08/05/20 24 Suspended Ondansetron 4 MG Oral Tablet Disintegrating (Zofran) Place 1 Tablet on tongue every 8 hours as needed for Other (post op nausea/vomiting) . dissolve on tongue. 1 Tablet 08/05/20 Suspended Omeprazole 20 MG Oral Capsule Delayed [...] contraception 08/04/2024 Pre-operative examination 07/03/2024 JOHNSON RESEARCH OTHER*[id number] 07/03/2024 Central obesity 06/15/2024 Super obese 06/12/2024 [...] mRNA, LNP-s, No Pre serve, 2-Dose Series (Chargeback) 08/29/2021,10/03/2020,09/12/2020 Hepatitis B, 20+ yrs 04/27/2022,12/15/2021,11/10 MMR [...] 08/20/2024 9:30 AM EST Office Visit General Surgery[address] [address] Sarah Trejo MD [address] [place] [address] 08/20/2024 11:20 AM EST Office Visit Nutrition & Weight Management, [place] [address] [place] [address] Kaylynn Black PA-C [address] [place] [address] 08/25/2024 8:40 AM EST Nutrition Services Nutrition & Weight Management, [facility] [address] [place] [address] Anjana Saunders RDN [address] [place] [address] 09/01/2024 10:20 AM EST Telemedicine Nutrition & Weight Management, [place] [address] [place] [address] Dina Urbano CRNP [address] [place] [address] 09/01/2024 1:50 PM EST Telemedicine Nutrition & Weight Management, [facility] [address] [place] [address] Anjana Saunders RDN [address] [place] [address] Health Maintenance Due Date Last Done Comments [...] Discussed due to patient's condition Care Teams Roofing Subcontractor Relationship Specialty Start Date End Date Cinthya Hatfield DO [address] [facility] [place] [address] PCP - General Family Medicine 01/29/24 documented as of this encounter
--- OUTSIDE RECORDS SUMMARY | 2024-09-17 06:11 | External Medical Summary | Summary of Care ---
Author Name Unknown Organization [facility] Address [address] [place] [address] Phone [phone] Care Team Providers Care Software Engineering Project Manager Name Role Phone EzequielCinthya rizo Jeremy OROZCO Primary Care Provider [phone] Reason for Visit * Reason Onset Date Comments Appointment 08/17/2024 08.11.24 Encounter Details Date Type Department Care Team (Latest Contact Info) Description 08/17/2024 Business Information Manager Telephone Care Coordination and Integration [address] [place] [address] Stephanie Peñaloza, SOL [address] [place] [address] Appointment ( 08.11.24) Allergies Active Allergy Reactions Criticality Noted Date Comments Amoxicillin 11/23/2005 Diphenhydramine Other (Please comment) High 11/29/19 18 Cephalexin High 04/23/2019 Itchy, hives, throat closing, chest tightness. documented as of this encounter (statuses as of 08/20/2024) Medications Montelukast Sodium 10 MG Oral Tablet [...] as of this encounter (statuses as of 08/20/2024) Active Problems Problem Noted Date Diagnosed Date Intestinal postoperative nonabsorption 4 Obesity, morbid (more than 1 00 lbs over ideal weight or BMI > 40) 08/06/2024 S/P bariatric surgery 08/04/2024 Depression with anxiety 08/04/2024 Encounter for counseling regarding contraception 08/04/2024 Pre-operative examination 07/03/2024 JOHNSON RESEARCH OTHER*[id number] 07/03/2024 Central obesity 06/15/2024 Super obese 06/12/2024 [...] as of this encounter (statuses as of 08/20/2024) Resolved Problems Problem Noted Date Diagnosed Date [...] as of this encounter (statuses as of 08/20/2024) Immunizations Name Administration Dates Next Due COVID-19 mRNA, LNP-s, No Pre serve, 2-Dose Series (Fidbacks) 08/29/2021,10/03/2020,09/12/2020 Hepatitis B, 20+ yrs 04/27/2022,12/15/2021,11/10 MMR [...] Destiny León RN documented in this encounter Miscellaneous Notes * Telephone Encounter - Sebas Allen OSA - 08/19/2024 3:06 PM EST Patient called to sked appt; none available. Please contact patient with options... No Appointments Available Patient declined appointments?: No What Visit Type is needed? Hospital Discharge If Acute Visit Type is needed, were surrounding clinics offered to patient (Yes/No)? N/A Was patient offered appointments with other available providers (Yes/No)? N/A See Call Details? (Yes or No): No * Telephone Encounter - Kadie Ortiz OSA - 08/17/2024 4:31 PM EST LMOM. 08/17/2024 * Telephone Encounter - Stephanie Peñaloza RN - 08/17/2024 10:53 AM EST Patient was discharged from [facility] 08/[facility]2024 and is in need of a hospital discharge follow up appointment. She also does not have any future PCP appointments scheduled. Front office staff, please contact patient to schedule a hospital discharge appointment. Thanks, Stephanie Peñaloza RN, BSN [facility] Business Information Manager [phone] documented in this encounter Plan of Treatment Upcoming Encounters Date Type Department Care Team (Late st Contact Info) Description 08/20/2024 2:10 PM EST Telemedicine Nutrition & Weight Management, [facility] [address] [facility] [place] [address] Anjana Saunders RDN [address] [facility] [place] [address] 08/25/2024 1:00 PM EST Office Visit General Surgery, [place] [address] [place] [address] Sarah Trejo MD [address] [place] [address] 08/26/2024 9:40 AM EST Office Visit Nutrition & Weight Management, [place] [address] [place] [address] Prateek Ingram PA-C [address] [place] [facility] [place] [address] 09/01/2024 10:20 AM EST Telemedicine Nutrition & Weight Management, [place] [address] [place] [address] Dina Urbano CRNP [address] [place] [address] 09/01/2024 1:50 PM EST Telemedicine Nutrition & Weight Management, [facility] [address] [place] [address] Anjana Saunders RDN [address] [place] [address] 10/02/2024 8:00 AM EST Nutrition Services Nutrition & Weight Management, [facility] [address] [place] [address] Anjana Saunders RDN [address] [place] [address] 10/02/2024 9:00 AM EST Office Visit Nutrition & Weight Management, [facility] [address] [facility] [place] [address] Josie Dennison PA-C [address] [place] [address] 12/14/2024 3:20 PM EDT Telemedicine Nutrition & Weight Management, [place] [address] [place] [address] Debbie Wing CRNP [address] [place] [address] Health Maintenance Due Date Last Done Comments Pneumococcal Vaccine: Pediatrics (0 to 5 Years) and At-Risk Patients (6 to 64 Years) (1 of 2 - PCV) 1996 COVID-19 Vaccine (4 - season) 2024 08/29/2021, 10/03/2020, 09/12/2020 Influenza Vaccine (FLU shot) (#1) 2024 07/19/2022, 07/19/2022, 06/21/2021, Additional history exists DTap/Tdap Vaccines (2 - Td or Tdap) 05/28/2024 05/28/2014 Depression Monitoring 08/17/2025 08/17/2024 , 04/24/2024, 04/23/2024 PAP SMEAR-EVERY 2 YRS,AGES 18-100 04/23/2026 04/23/2024, [...] Discussed due to patient's condition Care Teams Software Engineering Project Manager Relationship Specialty Start Date End Date Cinthya Hatfield DO [address] [place] [address] PCP - General Family Medicine 01/29/24 documented as of this encounter
--- OUTSIDE RECORDS SUMMARY | 2024-09-17 06:11 | External Medical Summary | Summary of Care ---
Author Name Unknown Organization [facility] Address [address] [place] [address] Phone [phone] Care Team Providers Care Staffing Consultant Name Role Phone Cinthya Hatfield DO Primary Care Provider Reason for Visit * Auth/Cert Specialty Diagnoses / Procedures Referred By Contac t Referred To Contact Diagnoses SBO (small bowel obstruction) ([facility]) SBO Lisette Mason MD [address] [place] [address] Phone: tel: fax: Admissions, [facility] [address] [place] [address] Referral ID Status Reason Start Date Expiration Date Visits Re quested Visits Authorized [id number] Encounter Details Date Type Department Care Team (Latest Contact Info) Description 08/08/2024 5:35 PM EST - 08/11/2024 11:51 AM EST Hospital Encounter [id number] [facility], Jac Mallory [address] [place] [address] Lisette Mason MD [address] [place] [address] Diagnostic Clarification Discharge Disposition: Home - Self Care Allergies Active Allergy Reactions Criticality Noted Date Comments Amoxicillin 11/23/2005 Diphenhydramine Other (Please comment) High 11/29/19 18 Cephalexin High 04/23/2019 Itchy, hives, throat closing, chest tightness. documented as of this encounter (statuses as of 08/11/2024) Medications Montelukast Sodium 10 MG Oral Tablet [...] morning. 30 Tablet 2 06/25/20 24 Active Enoxaparin Sodium 60 MG/0.6ML Injection Solution Prefilled Syringe (Lovenox)Indicatio ns:Hyperinsulinemi a,PCOS (polycystic ovarian syndrome),Central obesity,Pre-operat yamel examination,Class 3 severe obesity due to excess [...] days after procedure 12 mL 07/03/20 24 Active Acetaminophen 500 MG Oral Tablet [...] 4 9:04 AM EST 08/06/20 24 Active documented as of this encounter (statuses as of 08/11/2024) Active Problems Problem Noted Date Diagnosed Date Intestinal postoperative nonabsorption Obesity, morbid (more than 1 00 lbs over ideal weight or BMI > 40) 08/06/2024 S/P gastric bypass 08/04/2024 Depression with anxiety 08/04/2024 Encounter for counseling regarding contraception 08/04/2024 Pre-operative examination 07/03/2024 [facility] OTHER*[id number] 07/03/2024 Central obesity 06/15/2024 Super obese 06/12/2024 [...] as of this encounter (statuses as of 08/11/2024) Resolved Problems Problem Noted Date Diagnosed Date [...] as of this encounter (statuses as of 08/11/2024) Immunizations Name Administration Dates Next Due COVID-19 mRNA, LNP-s, No Pre serve, 2-Dose Series (Pfizer) 08/29/2021,10/03/2020,09/12/2020 Hepatitis B, 20+ yrs 04/27/2022,12/15/2021,11/10 MMR [...] 04/24/2024 Does the household have a re lar source of income? (Household - for ages [...] Sign Reading Time Taken Comments Blood Pressure 137/74 08/11/2024 11:07 AM EST Pulse 58 08/11/2024 11:07 AM EST Temperature 36.7 C (98.1 F) 08/11/2024 1 1:07 AM EST Respiratory Rate 16 08/11/2024 11:0 7 AM EST Oxygen Saturation 99% 08/11/2024 11: 07 AM EST Inhaled Oxygen Concentration - - Weight 169.3 kg (373 lb 3.8 oz) 08/08/2024 5:35 PM EST Height 180.3 cm (5' 11") 08/08/2024 5:35 PM EST Body Mass Index 52.06 08/08/2024 5:35 PM EST documented in this encounter Functional [...] Destiny León RN documented in this encounter Discharge Instructions * Discharge Instr - AVS* Sherrell Roy CRNP - 08/10/2024 11:42 AM EST Discharge Date: 08/11/2024 - Postoperative Day #1 Discharge? N/A Check your Patient Education Brochure for further information. If you have any questions during regular business hours (weekdays 8:00 AM to 4:30 PM), please contact the Bariatric Nurse Coordinator, Vannessa Sandra RN at [phone]. If you are unable to reach the nurse coordinator, contact the surgical clinic at [phone]. During non-business hours (weekdays before 8:00 AM and after 4:30 PM and on weekends) call [phone] and ask to speak to the MIS/Bariatric Fellow polymerization helper. If the Fellow is unavailable, ask for thesurgical resident polymerization helper. If the certified surgical tech/first assistant is unavailable, ask for the attending MIS/Bariatric surgeon polymerization helper. If you are still unable to reach someone, ask the cement production plant operator to call Dr. Sarah Trejo. The information below provides you with the instructions and the list of medications you need to betaking following discharge from the hospital. If you have any questions, please ask before leaving.Please carry this letter with you when you see your doctor in the clinic. You can reach us at the numbers above for any questions or test results. Brief summary of your inpatient care: You were admitted to [facility] on 08/08/24 forabdominal pain. You had adequate pain control, and tolerated a diet before discharge. Your primary diagnosis at discharge was ileus. Inpatient test results pending: None Operations & Procedures: none Complications: none Advance Directive Documented: Advance Directive Does the Patient have an Advance Directive? No Diet: Please refer to diet as defined in your Bariatric binder. Stage 2 = high protein liquid Activity: Ambulate as tolerated at least 3 times daily. Get up and around as much as possible. NO lifting more than 20 lbs or deep bending until seen for follow up visit. DO NOT drive or operate any appliances and/or machinery until seen for follow up visit. DO NOT sign legal documents while taking pain medications. Warnings: Call your surgeon promptly in case of: A. Excessive bleeding B. Fever greater than 101 degrees F (38.3 degrees centigrade) C. Nausea and vomiting D. Redness, swelling or pus-like drainage from the wound E. Pain that is not relieved by the medicine you were told to take F. Inability to take in 64 ounces of fluid daily Special Instructions: A. Dressing change: DERMABOND surgical adhesive covers your incision. This will begin to fall offin about 2 weeks. Do not pick at the wound. Do not apply any ointment or lotion to the incision. B. May bathe and shower at home. C. Follow up with Dr. Trejo and GI Nutrition on 08/20/24. D. You will continue Lovenox for deep vein thrombosis prophylaxis. 1) Tell dentists, surgeons, and other healthcare providers that you use this drug. 2) You may bleed more easily. Avoid injury. Use soft toothbrush, electric razor. 3) Call General Surgery or your primary care physician right away if you have unusual bruising or bleeding 4) The pharmacist at Coumadin clinic will follow up with you 5) Start Lovenox tonight. Last dose of Lovenox is on 08/14/24. E. Cut large pills in half to increase surface area and aid in absorption. Take capsules with warm water. Contact GI nutrition before you start any new medication which is not listed on your discharge instruction medication list. No vitamins until Stage 2B diet. At your follow up appointment, GI nutrition will let you know if you can start Childrens complete chewable with minimum 18 mg fe/tab -take one tab Twice daily AND a B complex or thiamine to provide 50-100 mg thiamine daily. If you will be taking bariatric specific vitamins, you WILL NOT need additional thiamine. F. Do NOT take any Nonsteroidal anti-inflammatory medicines. For example: ibuprofen, celebrex, naproxen G. Your primary goal will be hydration. Your Liquid goal is at least 64 ounces daily. Protein shakes or Protein water do NOT count into your liquid goal. You should start drinking clear liquids (for example: water, broth, sugar free jello) first when you wake up every day. You may drink the proteinshakes in 2 different ways, which ever you prefer to do. 1) you may start drinking clear liquids until you get to 45-50 ounces in the afternoon, then you can have 1 bottle of protein shakes and otherStage 2 diet. Then you can continue drinking clears. 2) You may divide a bottle of the protein shakes into three meals (breakfast, lunch and dinner); and drink clears the rest of the day. H. Until your first bariatric medicine follow up, you do not need to wait 30 mins before you drink your protein shakes. I. When you are able to drink at least 64 ounces of fluids daily, you may start to work on your protein goal (60-80 grams protein daily). J. All supplements & beverages must be <15 grams of sugar per serving K. If you have any issues, Please call Dr Mason's office first before you go to the Emergency Department. Our physicians and nurses will guide you what you should do. L. Avoid 18 months after surgery. It is not recommended to use oral contraceptive after surgery. If you are using oral contraceptive, please use a second method. Acceptable contraceptive methods such as an IUD, condoms, control implants, or NuvaRing. Date you may return to work or school: To be determined at post-op clinic visit. See your primary care physician (Cinthya Hatfield DO) as needed. documented in this encounter Progress Notes * Filiberto Wood MD - 08/11/2024 8:32 AM EST Progress Note - Bariatric Medicine [facility]-[address] [address] Name: Dina Acosta Location: [facility] B643/A Date: 08/11/2024 Time: 8:32 AM REQUESTING SERVICE: Bariatric Surgery REASON FOR CONSULT: Requesting recommendations regarding morbid obesity, depression, and PCOS status post Single Anastomosis Duodenal-Ileal Bypass - Sleeve Gastrectomy (ALVARO-S) . HPI: Dina Acosta is a 34 year old female who is seen at the request of Bariatric Surgery for evaluation and recommendations postoperatively for the specific medical comorbidities mentioned above. 'Pt has a h/o ROSANNE, migraine, PCOS, seizures s/p lap ALVARO 08/04/[address] Trejo who presents as atransfer from [facility] with acute onset abdominal pain, nausea, and vomiting. CT with concern for SBO with transition point at the anastomosis. Pt developed nausea on 08/08/24 and during transport, relieved with antiemetics by EMS. She did endorse flatus and burping.' 08/10/24: At time of initial assessment, pt remains on Stage 1 diet and is pending advancement to Stage 2a alone for the time being and if she tolerates this well, will be discharged on this until she sees surgery and [facility] outpt. Since admission, pt underwent CT imaging which did not reveal an obstruction, and pt has not been clinically obstructed either. However, pt continues to report abdominal pain with liquid PO intake. Subjective: Pt was seen at bedside. She stated that she was feeling great today, tolerating her stage 2 diet, and was looking forward to going home today. ALLERGIES: Diphenhydramine, Keflex [cephalexin], and Amoxicillin Prior to admission medications reviewed in Epic. ROS: Constitutional: (-) fever chills sweats or weight loss Eyes: (-) negative, no amaurosis fugax, pain, blurred vision, or redness ENT: (-) negative: no headaches, vertigo, hearing loss, sinus, ear, or throat problems Cardiovascular: (-) negative: no chest pain, dyspnea, syncope, or palpitations Pulmonary: (-) negative: no cough, wheezing, or shortness of breath Abdominal/GI: (+) nausea and (+) abdominal pain Female : (-) negative: no dysuria, pelvic pain, irregular menses, or vaginal discharge Skin: (-) negative: no rash or new or changing moles Neurology: (-) negative: no focal neurologic defect Review of systems otherwise negative. PHYSICAL EXAMINATION: Most Recent Vital Signs: BP: 149 mmHg/77 mmHg (08/11/24699) Pulse: 55 (08/11/24631) Resp: 16 (08/11/24699) Temp: 36.78 C (08/11/24699) Temp Summary: Temp Min: 36.5 C (97.7 F) Max: 36.9 C (98.4 F) SpO2: 99 % (08/11/24699) O2 flow rate: Supplemental O2 Delivery: Room Air, None (08/11/24799) Vital Signs Last 24 Hours: Systolic BP: Most Recent Systolic BP Av.7 mmHg Min: 136 mmHg Max: 149 mmHg Temperature: Most Recent Temperature Av.6 C Min: 36.5 C Max: 36.89 C Pulse: Pulse Av.5 Min: 55 Max: 69 Respirations: Resp Av.5 Min: 14 Max: 20 SpO2: SpO2 Av.1 % Min: 94 % Max: 100 % I/O: No intake or output data in the 24 hours ending 08/11/24 0832 Body mass index is 52.06 kg/m. Constitutional: no acute distress and (+) obese HEENT: normocephalic, atraumatic, and slcera nonicteric Cardiovascular normal rate and rhythm, no murmur, gallops or rub Chest: normal respiratory effort , lungs clear to auscultation bilaterally, and no wheezing, rhonchi, or rales present Abdomen: soft, (+) tympany, (+) distended, (+) hypoactive bowel sounds , and (+) obese Extremities: no clubbing, cyanosis, or edema, otherwise grossly normal, warm, and dry Surgical site: Surgical incisions with dermabond in place , no cellulitis, and no drainage Skin: warm, dry, and intact Neuro: alert, oriented to person, place, and time, normal mental status exam, and moving all extremities IMPRESSION AND RECOMMENDATIONS: Active Problems: Class 3 severe obesity due to excess calories without serious comorbidity with body mass index (BMI) of 50.0 to 59.9 in adult (HCC) (POA: Unknown) PCOS (polycystic ovarian syndrome) (POA: Unknown) Hyperinsulinemia (POA: Unknown) Central obesity (POA: Unknown) Super obese (POA: Unknown) POA = Present On Admission Status post ALVARO-S postoperative day # 7. Recommendations: Out of bed to chair or bedside dangle Ambulation in hallway as often as tolerated Incentive spirometer IV fluids Pain management as per protocol to limit use of narcotics DVT prophylaxis with subQ Lovenox unless contraindicated and SCD boots No NSAIDs on discharge Hold all vitamins now and on discharge Continue post-op PPI for ulcer prophylaxis now and on discharge #Morbid Obesity #S/p ALVARO-S - SSI 2:50 > 150 in-patient - While on Stage 2A diet, advise pt to maintain 80-100 g of protein daily - Continue to encourage/record liquid PO intake - should be minimum 64 oz daily #Depression/Anxiety - Resume DIRECTOR PHYSICAL Escitalopram #Migraine Headache - Resume DIRECTOR PHYSICAL Topiramate #Contraception #PCOS - Pt advised to stop OCP as these are not effectively absorbed in the post-ALVARO anatomy - Pt pending an appointment with her TRANSPORTATION ANALYST for switching to implanted hormone device Thank you for this consult. Filiberto Wood MD Fellow Nutrition and Weight Management Department The patient was discussed with Dr. Rosamaria Wood . Cosigned by Rosamaria Wood MD at 08/11/2024 10:56 PM EST Associated attestation - Rosamaria Wood MD - 08/11/2024 10:56 PM EST I have discussed the patient's management with the resident/fellow physician and agree with the note. Please refer to the documented findings and plan of care. This patient's visit today consisted ofa service. I was readily available for immediate [id number] consultation and assistance. I have reviewed the medical history, physical examination, diagnosis, and plan. Rosamaria Wood MD documented in this encounter H&P Notes * Stacia Limon DO - 08/08/2024 2:44 PM EST HISTORY AND PHYSICAL EXAMINATION - Bariatric Surgery [facility]-[address] [address] Name: Dina Acosta Location: [facility] B643/A Date: 08/08/2024 Time: 10:37 PM PRESENTING PROBLEM: c/f SBO HISTORY OF PRESENT ILLNESS: Dina Acosta is a 34 year old female with PMHx ROSANNE, migraine, PCOS, seizures s/p lap ALVARO 08/04/24by Dr. Trejo who presents as a transfer from [facility] with acute onset abdominal pain, nausea, and vomiting. CT with concern for SBO with transition point at the anastomosis. Patient reports nausea earlier today and during transport, relieved with antiemetics given by EMS. She is passing gas and burping, she reports that she is burping more than she passes gas. She reports that she had significant abdominal pain earlier, but it is much improved after receiving acetaminophen upon arrival here. HOSPITAL PROBLEM LIST: Active Problems: * No active hospital problems. * POA = Present On Admission PAST MEDICAL HISTORY: Past Medical History: Diagnosis Date Anxiety ROSANNE (generalized anxiety disorder) 11/24/2022 Gastritis Migraine headache Migraine with aura and without status migrainosus, not intractable 11/24/2022 PCOS (polycystic ovarian syndrome) 05/27/2012 Seizures (HCC) sees Dr Gutierrez, not on any seizure medication PAST SURGICAL HISTORY: Past Surgical History: Procedure Laterality Date EGD, FLEXIBLE, DIAGNOSTIC 10/14/2018 focal intestinal metaplasia, mild gastric irritation, repeat 1 yr/[facility] EGD, FLEXIBLE, DIAGNOSTIC 11/26/2019 mild gastric irritation, repeat 5 yrs / [facility] EGD, FLEXIBLE, DIAGNOSTIC N/A 05/01/2024 stripes of erythema and linear erosions/biopsies normal/ESOPHAGOGASTRODUODENOSCOPY (EGD), FLEXIBLE,TRANSORAL, DIAGNOSTIC performed by Macy Solomon MD at OR [facility] EGD, FLEXIBLE, DIAGNOSTIC N/A 08/04/2024 ESOPHAGOGASTRODUODENOSCOPY (EGD), FLEXIBLE, TRANSORAL, DIAGNOSTIC performed by Sarah Trejo MD at [facility] GASTRIC RESTRICT/BYPASS,PYLORUS PRESERVING N/A 08/04/2024 LAPAROSCOPIC GASTRIC RESTRICTIVE PROCEDURE PARTIAL GASTRECTOMY PYLORUS PRESERVING SINGLE ANASTOMOSIS performed by Sarah Trejo MD at [facility] LAPAROSCOPE PROCEDURE, LIVER N/A 08/04/2024 UNLISTED LAPAROSCOPIC PROCEDURE LIVER performed by Sarah Trejo MD at OR [facility] REMOVE FOOT TENDON LESION Left 07/28/2021 EXCISION LESION TENDON FOOT performed by Rowena Mckee DPM at [facility] REMOVE FOOT TENDON LESION Left 11/30/2022 EXCISION LESION TENDON FOOT performed by Rowena Mckee DPM at OR [facility] REMOVE TONSILS & ADENOIDS, AGE 12+ Bilateral 06/21/2015 TONSILLECTOMY AND ADENOIDECTOMY AGE 12 OR OVER performed by Remberto Pennington DO at OR [facility] FAMILY HISTORY: Family History Problem Relation Name Age of Onset Diabetes Sister Diabetes Grandmother (Maternal) Diabetes Grandfather (Maternal) Heart Disorder Grandfather (Maternal) [place] SOCIAL HISTORY: Social History Tobacco Use Smoking status: Never Passive exposure: Current Smokeless tobacco: Never Vaping Use Vaping status: Never Used Substance Use Topics Alcohol use: Never Drug use: No CURRENT HOSPITAL MEDICATIONS: Note that completed medications (per the MAR) continue to display for 24 hours. Ordered medicationsto be given in the future also display. Current Facility-Administered Medications Medication Dose Route Frequency Provider Acetaminophen (Ofirmev) inj 1,000 mg 1,000 mg Intravenous Q6H Elizabeth Brink MD Enoxaparin (Lovenox) inj 60 mg 60 mg Subcutaneous Q12H Elizabeth Brink MD HYDROmorphone (Dilaudid) inj 0.2 mg 0.2 mg IV Push Q6H PRN Ankur Noriega MD Isolyte-S pH 7.4 infusion Intravenous Continuous Ankur Noriega MD ondansetron ODT (Zofran) tab 4 mg 4 mg On Tongue Q6H PRN Elizabeth Brink MD Or ondansetron (Zofran) inj 4 mg 4 mg IV Push Q6H PRN Elizabeth Brink MD oxygen GAS Inhalation Oxygen Elizabeth Brink MD Pantoprazole (Protonix) inj 40 mg 40 mg IV Push Q12H Ankur Noriega MD sodium chloride 0.9 % flush peripheral jesus 3 mL 3 mL IV Push Q8H Elizabeth Brink MD ALLERGIES: Diphenhydramine, Keflex [cephalexin], and Amoxicillin ROS: Negative except as per HPI PHYSICAL EXAMINATION: Most Recent Vital Signs: BP: 146 mmHg/78 mmHg (08/08/241929) Pulse: 75 (08/08/241929) Resp: 17 (08/08/241929) Temp: 37.17 C (08/08/241929) Temp Summary: Temp Min: 37.2 C (98.9 F) Max: 37.5 C (99.5 F) SpO2: 98 % (08/08/241929) O2 flow rate: Supplemental O2 Delivery: Room Air, None (08/08/242029) Constitutional: no acute distress HEENT: normocephalic, atraumatic Eyes: sclera and conjunctiva normal CV: normal rate, normal rhythm Chest: normal respiratory effort Abdomen: Soft, obese, mildly tender to deep palpation throughout, no guarding or rebound tenderness, surgical sites c/d/I with dermabond in place. Extremities: no edema, warm and well perfused Skin: warm, dry, intact Neuro: alert, oriented LABS: Labs reviewed as indicated below: CBC Lab results within last 7 days (see chart for full results) Units 08/08/24 1822 08/06/24 0821 08/05/24 0909 WBC K/uL 8.48 9.38 13.83* HGB g/dL 15.1 13.6 14.6 HCT % 45.1 40.3 43.5 PLT K/uL 321 261 303 BMP Lab results within last 7 days (see chart for full results) Units 08/08/24 1822 08/06/24 0821 08/05/24 0909 SODIUM mmol/L 138 139 139 POTASSIUM mmol/L 4.3 3.6 3.6 CHLORIDE mmol/L 107 106 102 CO2 mmol/L 15* 22 22 BUN mg/dL 6 6 6 CREATININE mg/dL 0.6 0.7 0.6 GLUCOSE mg/dL 104 88 92 Ca, Mg, Phos Lab results within last 7 days (see chart for full results) Units 08/08/24 1822 08/06/24 0821 08/05/24 0909 CALCIUM mg/dL 8.5 8.4 8.6 Magnesium mg/dL 1.9 -- -- Phosphorus mg/dL 3.4 -- -- Lactic acid Lab results within last 7 days (see chart for full results) Units 08/08/24 1822 Lactate mmol/L 1.0 IMAGING: OSH imaging pushed into PACS (ct a/p without contrast) Pending CT a/p with [facility] protocol IMPRESSION and PLAN: 34yo F with hx lap ALVARO on 08/04/24 presenting as a transfer from [facility] with concern for SBO on CT. -CT abd/pelvis with [facility] protocol PO contrast -NPO -IVF -Pain and nausea control -Labs as above upon arrival -DVT ppx: SCD, lovenox -DIRECTOR PHYSICAL meds pending [facility]/s -Dispo: med surg Seen and will be discussed with Dr. Mason. Stacia Limon DO 08/08/2024 10:37 PM PRIMARY CARE PHYSICIAN: Cinthya Hatfield DO Cosigned by Lisette Mason MD at 08/09/2024 7:11 AM EST Associated attestation - Lisette Mason MD - 08/09/2024 7:11 AM EST I saw and evaluated the patient today. I have reviewed the resident/fellow physician note and agree. This is a late documentation of the my visit to the patient yesterday Pt had sever pain yesterday after starting stool softener, with sweating, and 4 episodes of vomiting, passing gas without BM Pain got better with morphine at OSH and CT scan showed some dilated bowel, possible partial SBO vsileus Upon arrive here pain was 4/10 Only at the epigastrium, VSS Labs unremarkable Repeat CT scan showed improvement of the SB dilation , possible ileus Plan for conservative management IV fluid bowel rest and pain control Lisette Mason MD documented in this encounter Consult Notes * Enoc Nugent DO - 08/10/2024 12:20 PM ESTAssociated Order(s): BARIATRIC MEDICINE CONSULT IP Consult Note - Bariatric Medicine [facility] [address] Name: Dina Acosta Location: [facility] B643/A Date: 08/10/2024 Time: 12:22 PM REQUESTING SERVICE: Bariatric Surgery REASON FOR CONSULT: Requesting recommendations regarding morbid obesity, depression, and PCOS status post Single Anastomosis Duodenal-Ileal Bypass - Sleeve Gastrectomy (ALVARO-S) . HPI: Dina Acosta is a 34 year old female who is seen at the request of Bariatric Surgery for evaluation and recommendations postoperatively for the specific medical comorbidities mentioned above. 'Pt has a h/o ROSANNE, migraine, PCOS, seizures s/p lap ALVARO 08/04/[address] Trejo who presents as atransfer from [facility] with acute onset abdominal pain, nausea, and vomiting. CT with concern for SBO with transition point at the anastomosis. Pt developed nausea on 08/08/24 and during transport, relieved with antiemetics by EMS. She did endorse flatus and burping.' 08/10/24: At time of initial assessment, pt remains on Stage 1 diet and is pending advancement to Stage 2a alone for the time being and if she tolerates this well, will be discharged on this until she sees surgery and [facility] outpt. Since admission, pt underwent CT imaging which did not reveal an obstruction, and pt has not been clinically obstructed either. However, pt continues to report abdominal pain with liquid PO intake. PAST MEDICAL HISTORY: Past Medical History: Diagnosis Date Anxiety ROSANNE (generalized anxiety disorder) 11/24/2022 Gastritis Migraine headache Migraine with aura and without status migrainosus, not intractable 11/24/2022 PCOS (polycystic ovarian syndrome) 05/27/2012 Seizures (HCC) sees Dr Gutierrez, not on any seizure medication PAST SURGICAL HISTORY: Past Surgical History: Procedure Laterality Date EGD, FLEXIBLE, DIAGNOSTIC 10/14/2018 focal intestinal metaplasia, mild gastric irritation, repeat 1 yr/[facility] EGD, FLEXIBLE, DIAGNOSTIC 11/26/2019 mild gastric irritation, repeat 5 yrs / [facility] EGD, FLEXIBLE, DIAGNOSTIC N/A 05/01/2024 stripes of erythema and linear erosions/biopsies normal/ESOPHAGOGASTRODUODENOSCOPY (EGD), FLEXIBLE,TRANSORAL, DIAGNOSTIC performed by Macy Solomon MD at OR [facility] EGD, FLEXIBLE, DIAGNOSTIC N/A 08/04/2024 ESOPHAGOGASTRODUODENOSCOPY (EGD), FLEXIBLE, TRANSORAL, DIAGNOSTIC performed by Sarah Trejo MD at [facility] GASTRIC RESTRICT/BYPASS,PYLORUS PRESERVING N/A 08/04/2024 LAPAROSCOPIC GASTRIC RESTRICTIVE PROCEDURE PARTIAL GASTRECTOMY PYLORUS PRESERVING SINGLE ANASTOMOSIS performed by Sarah Trejo MD at [facility] LAPAROSCOPE PROCEDURE, LIVER N/A 08/04/2024 UNLISTED LAPAROSCOPIC PROCEDURE LIVER performed by Sarah Trejo MD at [facility] REMOVE FOOT TENDON LESION Left 07/28/2021 EXCISION LESION TENDON FOOT performed by Rowena Mckee DPM at [facility] REMOVE FOOT TENDON LESION Left 11/30/2022 EXCISION LESION TENDON FOOT performed by Rowena Mckee DPM at OR [facility] REMOVE TONSILS & ADENOIDS, AGE 12+ Bilateral 06/21/2015 TONSILLECTOMY AND ADENOIDECTOMY AGE 12 OR OVER performed by Remberto Pennington DO at OR [facility] FAMILY HISTORY: Family History Problem Relation Name Age of Onset Diabetes Sister Diabetes Grandmother (Maternal) Diabetes Grandfather (Maternal) Heart Disorder Grandfather (Maternal) [place] SOCIAL HISTORY: Social History Tobacco Use Smoking status: Never Passive exposure: Current Smokeless tobacco: Never Vaping Use Vaping status: Never Used Substance Use Topics Alcohol use: Never Drug use: No ALLERGIES: Diphenhydramine, Keflex [cephalexin], and Amoxicillin Prior to admission medications reviewed in Epic. ROS: Constitutional: (-) fever chills sweats or weight loss Eyes: (-) negative, no amaurosis fugax, pain, blurred vision, or redness ENT: (-) negative: no headaches, vertigo, hearing loss, sinus, ear, or throat problems Cardiovascular: (-) negative: no chest pain, dyspnea, syncope, or palpitations Pulmonary: (-) negative: no cough, wheezing, or shortness of breath Abdominal/GI: (+) nausea and (+) abdominal pain Female : (-) negative: no dysuria, pelvic pain, irregular menses, or vaginal discharge Skin: (-) negative: no rash or new or changing moles Neurology: (-) negative: no focal neurologic defect Review of systems otherwise negative. PHYSICAL EXAMINATION: Most Recent Vital Signs: BP: 141 mmHg/61 mmHg (08/10/24543) Pulse: 62 (08/10/24543) Resp: 18 (08/10/24543) Temp: 36.78 C (08/10/24543) Temp Summary: Temp Min: 36.5 C (97.7 F) Max: 37.3 C (99.2 F) SpO2: 99 % (08/10/24543) O2 flow rate: Supplemental O2 Delivery: Room Air, None (08/10/24543) Vital Signs Last 24 Hours: Systolic BP: Most Recent Systolic BP Av.8 mmHg Min: 137 mmHg Max: 154 mmHg Temperature: Most Recent Temperature Av.8 C Min: 36.5 C Max: 37.33 C Pulse: Pulse Av.2 Min: 56 Max: 75 Respirations: Resp Av Min: 18 Max: 18 SpO2: SpO2 Av.6 % Min: 97 % Max: 99 % I/O: Intake/Output Summary (Last 24 hours) at 08/10/2024 1222 Last data filed at 08/09/2024 1500 Gross per 24 hour Intake 382.47 ml Output -- Net 382.47 ml Body mass index is 52.06 kg/m. Constitutional: no acute distress and (+) obese HEENT: normocephalic, atraumatic, and slcera nonicteric Cardiovascular normal rate and rhythm, no murmur, gallops or rub Chest: normal respiratory effort , lungs clear to auscultation bilaterally, and no wheezing, rhonchi, or rales present Abdomen: soft, (+) tympany, (+) distended, (+) hypoactive bowel sounds , and (+) obese Extremities: no clubbing, cyanosis, or edema, otherwise grossly normal, warm, and dry Surgical site: Surgical incisions with dermabond in place , no cellulitis, and no drainage Skin: warm, dry, and intact Neuro: alert, oriented to person, place, and time, normal mental status exam, and moving all extremities IMPRESSION AND RECOMMENDATIONS: Active Problems: Class 3 severe obesity due to excess calories without serious comorbidity with body mass index (BMI) of 50.0 to 59.9 in adult (HCC) (POA: Unknown) PCOS (polycystic ovarian syndrome) (POA: Unknown) Hyperinsulinemia (POA: Unknown) Central obesity (POA: Unknown) Super obese (POA: Unknown) POA = Present On Admission Status post ALVARO-S postoperative day # 6. Recommendations: Out of bed to chair or bedside dangle Ambulation in hallway as often as tolerated Incentive spirometer IV fluids Pain management as per protocol to limit use of narcotics DVT prophylaxis with subQ Lovenox unless contraindicated and SCD boots No NSAIDs on discharge Hold all vitamins now and on discharge Continue post-op PPI for ulcer prophylaxis now and on discharge #Morbid Obesity #S/p ALVARO-S - SSI 2:50 > 150 in-patient - While on Stage 2A diet, advise pt to maintain 80-100 g of protein daily - Continue to encourage/record liquid PO intake - should be minimum 64 oz daily #Depression/Anxiety - Resume DIRECTOR PHYSICAL Escitalopram #Migraine Headache - Resume DIRECTOR PHYSICAL Topiramate #Contraception #PCOS - Pt advised to stop OCP as these are not effectively absorbed in the post-ALVARO anatomy - Pt pending an appointment with her TRANSPORTATION ANALYST for switching to implanted hormone device Thank you for this consult. Filiberto Wood MD Fellow Nutrition and Weight Management Department The patient was discussed with Enoc Nugent DO. Staff: I saw and evaluated the patient 08/10/24. I have reviewed the resident/fellow physician note and agree. --CDS Enoc Nugent DO, FACN, FACP Director, Center for Nutrition and Weight Imaging Engineer, Department of Gastroenterology/Nutrition documented in this encounter Nursing Notes * Destiny Levin RN - 08/08/2024 5:42 PM EST Dual Licensed Skin Assessment completed by Danny Levin RN and Checo Beckford RN. The patient is/has a N/A Skin Breakdown (includes non blanchable erythema): Yes - Surgical/Procedural changes only. 5 trochar sites from previous hospitalization. documented in this encounter Miscellaneous Notes * Ancillary Progress Note - Chicho Siu RN - 08/11/2024 10:05 AM EST CARE MANAGEMENT - ADULT DISCHARGE NOTE [facility]-[address] [address] Name: Dina Acosta Location: [facility] B643/A Date: 08/11/2024 Time: 10:05 AM The following coordination of care and discharge plan has been coordinated with the care team, patient, family and/or caregiver according to the patients needs and preferences. Discharge Discharge Second Notice Important Message from Medicare delivered: Not Applicable (08/11/24 1005) Discharge Transportation: Family/Friends drive (08/10/24 1220) Patient declined post-hospital transition of care recommendation: N/A (08/11/24 1005) Final Discharge Plan (Complete only at time of Discharge): Home - Self Care (08/11/24 1005) Destination - Admitted Since 08/08/2024 No services have been selected for the patient. Narrative: Surgery patient discussed with Jone FRAIRE this morning. Ampac = 24 Pt independent with ADLs and amb without device prior to admission. Pt discharging to home. No needs identified by CM. Family/friends anticipated to provide discharge transportation. Please contact CM with any concerns. * Progress Notes - Non-Billable - Sherrell Roy CRNP - 08/11/2024 8:53 AM EST PROGRESS NOTE - General Surgery Discharge Transition [facility] [address] Name: Dina Acosta Location: [facility] B643/A Date: 08/11/2024 Time: 8:53 AM Admitting Diagnosis: post op ileus PROCEDURE: none at this admission. S/p ALVARO on 08/04/24. Estimated Discharge Date: 08/11/2024 Subjective: Pt was resting in bed comfortably. Tolerating water, denied nausea/vomiting. Denied abdpain. Ambulating. Voiding without difficulty. (+) flatus. Review of Systems: Constitutional: (-) fever chills sweats or weight loss Abdominal/GI: (-) negative: no pain, heartburn, dysphagia, bleeding, change in bowel habits, nauseaor vomiting Most Recent Vital Signs: BP: 149 mmHg/77 mmHg (08/11/24 07) Pulse: 55 (08/11/24 0632) Resp: 16 (08/11/24699) Temp: 36.78 C (08/11/24699) Temp Summary: Temp Min: 36.5 C (97.7 F) Max: 36.9 C (98.4 F) SpO2: 99 % (08/11/24699) O2 flow rate: Supplemental O2 Delivery: Room Air, None (08/11/24799) Constitutional: no acute distress Abdomen: soft, no tenderness, nondistended Surgical site: incision CDI With dermabond Lab and Radiology: Pending results: No results pending Discharge Preparation: Consultation: No pending consultations to be completed Discharge Medication Plans: Pain Management: tylenol DVT Needs: lovenox GI: Zofran and prilosec Antibiotics: None Stool Softener: None Anticipated Diet at Discharge: Bariatric Disposition / Needs Post Discharge: Home Return Appointments Planned: Dr Trejo and GI nutrition on 08/20/24. Reviewed d/c instructions with patient and answered questions patient had. Patient showed understanding and agreed to call if there is any concern. JUNO Mondragon 08/11/2024 8:54 AM * Diagnostic Clarification - Lisette Mason MD - 08/10/2024 12:45 PM EST The patient's BMI is greater than 40 due to severe or morbid obesity without alveolar hypoventilation. Abdominal pain, unknown etiology. * Ancillary Progress Note - Chicho Siu RN - 08/10/2024 12:20 PM EST CARE MANAGEMENT - ADULT INITIAL SCREENING [address] [address] Name: Dina Acosta Location: [facility] B643/A Date: 08/10/2024 Time: 12:20 PM Discussed patient with the interdisciplinary care team. This Cyber Policy And Strategy Planner performed a chart review to complete admission screen and assessed needs for transition planning. Chief Complaint: No chief complaint on file. Prior Living Arrangements What was your living situation prior to admission/observation?: Other (Comment) (with grandparent) (08/08/241736) Do you have serious difficulty walking or climbing stairs? (5 years old or older): No (08/08/24 177) History of falling: No (08/10/24 0092) Prior Level of Functioning Describe the patient's ability prior to admission/observation to perform ADLs: Performs independently (08/08/241736) Describe the patient's mobility status prior to admission: Patient ambulates independently (08/08/241736) Patient uses assistive device: No (08/08/241736) Caregiver Information Emergency Contacts None on File Other Contacts Name Relation Home Work Mobile Em Acosta Grandparent [phone] Risk Stratification/Psychosocial/Care Gaps Risk Stratification Psycho Social / Medical Concerns Identified: Adjustment to illness/injury (08/10/24 1220) Readmission Risk Score: 9.94 (08/10/24 1201) AM-PAC Score With Stairs : 24 (08/10/24 0840) Prior to Admission Services Outpatient Cyber Policy And Strategy Planner: No care steam fitter helper to display Patient/Family Expectations: home- independent. Chart reviewed. Patient discussed with Nursing and Jone FRAIRE . No Care Management needs identified at this time. Care Management will continue to follow. Readmission for post op ileus. S/p sleeve gastrectomy 08/04/2024 Currently NPO Pain with advancement to CLD. AMPAC= 24 Pt independent with ADLs and amb without device prior to admission. Likely discharge 1-2 pending progress. For further screening information, please refer to the Care Management flow document. * Progress Notes - Post-Op Global - Yonny Rocha MD - 08/09/2024 8:10 AM EST BARIATRIC SURGERY PROGRESS NOTE [facility]-[address] [address] Name: Dina Acosta Location: [facility] B643/A Date: 08/09/2024 Time: 8:10 AM DIAGNOSIS: Body mass index is 52.06 kg/m. PROCEDURE: POST op ALVARO DATE OF SURGERY: 08/04/24 Length of Stay. 1 SUBJECTIVE: AFVSS. Having bowel movements. Pain much improved. Still has intermittent sharp epigastric pains but 4/10 from previously 06/25. Would like to trial clears today. OBJECTIVE: Most Recent Vital Signs: BP: 134 mmHg/76 mmHg (08/09/24621) Pulse: 60 (08/09/24621) Resp: 18 (08/09/24621) Temp: 36.89 C (08/09/24621) Temp Summary: Temp Min: 36.9 C (98.4 F) Max: 37.5 C (99.5 F) SpO2: 100 % (08/09/24621) O2 flow rate: Supplemental O2 Delivery: Room Air, None (08/09/24621) Vital Signs Last 24 Hours: Systolic BP: Most Recent Systolic BP Av.8 mmHg Min: 133 mmHg Max: 146 mmHg Temperature: Most Recent Temperature Av.1 C Min: 36.89 C Max: 37.5 C Pulse: Pulse Av.4 Min: 60 Max: 77 Respirations: Resp Av.4 Min: 16 Max: 18 SpO2: SpO2 Av % Min: 96 % Max: 100 % In / Out Past 24 Hrs: Intake/Output Summary (Last 24 hours) at 08/09/2024 0810 Last data filed at 08/08/2024 1900 Gross per 24 hour Intake 109.4 ml Output -- Net 109.4 ml Physical Exam: Physical Exam Constitutional: General: Not in acute distress. Cardiovascular: Rate and Rhythm: Normal rate. Pulmonary: Effort: Pulmonary effort is normal. No respiratory distress. Abdominal: General: There is no distension. Palpations: Abdomen is soft. Tenderness: There is no abdominal tenderness. There is no guarding or rebound. Incision sites: Are intact without dehiscence or active signs of bleeding. There is no sign of hematoma formation. Musculoskeletal: General: Grossly normal range of motion. Skin: General: Skin is warm and dry. Neurological: General: No gross deficit present. Mental Status: Patient is alert. LABS: Lab results within last 7 days (see chart for full results) Units 08/09/24 0701 08/08/24 1822 08/06/24 0821 08/05/24 0909 WBC K/uL 7.96 8.48 9.38 13.83* HGB g/dL 12.8 15.1 13.6 14.6 PLT K/uL 292 321 261 303 Lab results within last 7 days (see chart for full results) Units 08/09/24 0702 08/08/24 1822 08/06/24 0821 08/05/24 0909 SODIUM mmol/L 139 138 139 139 POTASSIUM mmol/L 3.8 4.3 3.6 3.6 CHLORIDE mmol/L 107 107 106 102 CO2 mmol/L 19* 15* 22 22 BUN mg/dL 5* 6 6 6 CREATININE mg/dL 0.6 0.6 0.7 0.6 GLUCOSE mg/dL 77 104 88 92 CALCIUM mg/dL 8.4 8.5 8.4 8.6 Magnesium mg/dL -- 1.9 -- -- Phosphorus mg/dL -- 3.4 -- -- No results in the last 7 days - inpatent use only Lab results within last 7 days (see chart for full results) Units 08/08/24 1822 Lactate mmol/L 1.0 No results in the last 7 days - inpatent use only IMAGING: CT ABD/PELVIS W IV AND W ORAL CONTRAST Result Date: 08/08/2024 IMPRESSION 1. Minimal bowel distension, overall improved from prior, likely resolving postoperativeileus. Correlate clinically. Liquid enteric contrast is observed within both small bowel limbs. Repeat exam can be obtained if symptoms progress/worsen or fail to resolve. 2. Additional findings as above. IMPRESSION: ANKIT JOHN 08/04/24, admitted with concern for obstruction. CT scan without obstruction. Not clinically obstructed. Active Problems: Abdominal pain (POA: Yes) S/P gastric bypass (POA: Yes) POA = Present On Admission PLAN: 1) Current DVT/PE prophylaxis is: sequential compression devices (SCD's) and Lovenox as directed byIP pharmacy 2) Discharge home on Enoxaparin (Lovenox): Enoxaparin daily as directed by the anticoagulation clinic 3) Was patient taking Beta Blockers preop?: No. 4) Non-narcotic juanito-op pain management with Celecoxib (Celebrex) and Acetaminophen (Tylenol) provided: yes 5) Intraoperative Glycemic Monitoring: Patient's intra-op blood glucose exceeded 150 mg/dl: no 6) Sutures/alex to be removed: no sutures to be removed 7) Central line to be removed or continued: patient does not have central venous access 8) Continue current stress ulcer prophylaxis: proton pump inhibitor 9) Review medication administration record this visit: yes 10) Diet: tolerating NPO; advance to stage 1 11) Ambulation: ambulating in ariza without assistance. 12) Incentive spirometry and vigorous pulmonary toilet. Discussed with Dr. Marlon Rocha MD General Surgery PGY-2 [facility] Cosigned by Lisette Mason MD at 08/09/2024 8:37 AM EST Associated attestation - Lisette Mason MD - 08/09/2024 8:37 AM EST I saw and evaluated the patient today. I have reviewed the resident/fellow physician note and agree. Feels and look better Only few episodes of 4/10 pain well tolerable Passing gas and having BM No Nausea No Vomiting Abdomen soft and not distended only mild pain in the epigastrium Will start Stage 1 diet Lisette Mason MD * Respiratory Progress Note - Subhash Montenegro RRT - 08/08/2024 6:32 PM EST PATIENT DRIVEN PROTOCOL - Respiratory Care Services [address] [address] Name: Dina Acosta Location: [facility] B643/A Date: 08/08/2024 Time: 6:32 PM Patient Driven Protocol Summary: Initial evaluation performed. This Treatment Plan and medications will be reviewed by the Primary Care Team for any contraindications. Respiratory Care Treatment Plan Pulmonary Volume Expansion Therapy: Incentive Spirometry PRN to prevent or treat alveolar consolidation and atelectasis. The patient will be re-evaluated: No re-evaluation needed. Indications for treatment met. The Triage Level is: (Assessment Score = 0 - 5) Level 5. Triage Level Definitions: Level 1 Severe Respiratory/Airway Compromise Level 2 Moderate Respiratory/Airway Compromise or high risk for pulmonary complications Level 3 Mild Respiratory/Airway Compromise or moderate risk for pulmonary complications Level 4 Episodic Respiratory/Airway Compromise or low risk for pulmonary complications Level 5 No Respiratory/Airway Compromise Triage 1 Triage 2 Triage 3 Triage 4 Triage 5 greater than 20 16 - 20 11 - 15 6 - 10 0 - 5 Medical Record Assessment Clinical Findings Pulmonary Status: 0 - No History Surgical Status: 1 - General Surgery Chest X-Ray: 0 - Not Performed or performed greater than 3 days ago Assessment Score: 1 Patient Assessment Clinical Findings Respiratory Pattern: 0 - RR 12 - 20; Patient only gets breathless with strenuous exercise. Breath Sounds: 0 - Clear to auscultation Cough Effectiveness: 0 - Strong non-productive Sputum Production: 0 - No sputum production Level of Activity: 1 - Ambulatory with assist O2 needed to keep SpO2 greater than or equal to 92%: 0 - Room Air Assessment Score: 1 Total Assessment Score: 2 Breath Sounds: Inspiratory and expiratory clear bilaterally.. Cough and Sputum: No cough was present.. Vital Signs: Resp: 16 (08/08/241734) Pulse: 77 (08/08/241734) Temp: 37.5 C (99.5 F) (08/08/241734) BP: 133/74 (08/08/241734) SpO2: 98 % (08/08/241734) PFT: Incentive Spirometry Volume Goal (ml): 1080 ml Incentive Spirometry Volume Reached (ml): 2000 ml Primary Service: Surgery Green. Admitting Diagnosis: SBO (small bowel obstruction) (HCC) [K56.609] Small bowel obstruction (HCC) [K56.609] documented in this encounter Plan of Treatment Upcoming Encounters Date Type Department Care Team (Late st Contact Info) Description 08/20/2024 9:30 AM EST Office Visit General Surgery, [facility] [address] [place] [address] Sarah Trejo MD [address] [place] [address] 08/20/2024 11:20 AM EST Office Visit Nutrition & Weight Management, [facility] [address] [place] [address] Kaylynn Black PA-C [address] [place] [address] 08/25/2024 8:40 AM EST Nutrition Services Nutrition & Weight Management, [facility] [address] [facility] [address] Anjana Saunders RDN [address] [facility] [place] [address] 09/01/2024 10:20 AM EST Telemedicine Nutrition & Weight Management, [facility] [address] [place] [address] Dina Urbano CRNP [address] [place] [address] 09/01/2024 1:50 PM EST Telemedicine Nutrition & Weight Management, [facility] [address] [place] [address] Anjana Saunders RDN [address] [place] [address] Health Maintenance Due Date Last Done Comments Pneumococcal Vaccine: Pediatrics (0 to 5 Years) and At-Risk Patients (6 to 64 Years) (1 of 2 - PCV) 1996 COVID-19 Vaccine ( - season) 2024 08/29/2021, 10/03/2020, 09/12/2020 Influenza [...] Procedure Name Priority Date/Time Associated Diagnosis Comments BASIC METABOLIC PANEL Routine 08/11/2024 6:44 AM EST CBC Routine 08/11/2024 6:44 AM EST BASIC METABOLIC PANEL Routine 08/10/2024 5:43 AM EST PHOSPHORUS Add-on 08/10/2024 5:43 AM EST CBC Routine 08/10/2024 5:43 AM EST MAGNESIUM Add-on 08/10/2024 5:43 AM EST BASIC METABOLIC PANEL Routine 08/09/2024 7:02 AM EST CBC Routine 08/09/2024 7:[address] ABD/PELVIS W IV AND W ORAL CONTRAST STAT 08/08/2024 10:39 PM EST DIFFERENTIAL, AUTOMATED STAT 08/08/2024 6:22 PM EST BASIC METABOLIC PANEL STAT 08/08/2024 6:22 PM EST ABO/RH STAT 08/08/2024 6:22 PM EST TYPE AND SCREEN STAT 08/08/2024 6:22 PM EST CBC STAT 08/08/2024 6:22 PM EST PHOSPHORUS Routine 08/08/2024 6:22 PM EST LACTATE STAT 08/08/2024 6:22 PM EST CBC STAT 08/08/2024 6:22 PM EST DIFFERENTIAL, TECHNOLOGIST REVIEW Routine 08/08/2024 6:22 PM EST MAGNESIUM Routine 08/08/2024 6:22 PM EST documented in this encounter Results * CBC (08/11/2024 6:44 AM EST) WBC 5.56 4.00 - 10.80 K/uL 08/11/2024 7:06 AM EST LABORATORY [facility] RBC 4.90 3.85 - 5.15 M/uL 08/11/2024 7:06 AM EST LAB[facility]ORY [facility] HGB 14.5 12.0 - 15.3 g/dL 08/11/2024 7:06 AM EST LAB[facility]ORY [facility] HCT 42.4 36.0 - 45.2 % 08/11/2024 7:06 AM EST LAB[facility] MCV 86.5 81.5 - 97.5 fL 08/11/2024 7:06 AM EST LAB[facility]ATORY [facility] MCH 29.6 27.0 - 34.0 pg 08/11/2024 7:06 AM EST LABORATORY [facility] MCHC 34.2 32.0 - 36.0 g/dL 08/11/2024 7:06 AM EST LABORATORY [facility] RDW 14.4 11.5 - 15.5 % 08/11/2024 7:06 AM EST LAB[facility]ATORY [facility] PLT 345 140 - 400 K/uL 08/11/2024 7:06 AM EST LAB[facility]ATORY [facility] MPV 11.6 6.6 - 11.1 fL 08/11/2024 7:06 AM EST LABORATORY [facility] nRBCs 0 <=0 /100 WBCs 08/11/2024 7:06 AM EST LABORATORY GM Blood Venous blood specimen / Unknown Venipuncture / Unknown 08/11/2024 6:44 AM EST 08/11/2024 6:54 AM EST us Elizabeth Brink MD LAB BLOOD ORDERABLES Final Resu lt LABORATORY [facility] [address] [place] [address] * (ABNORMAL) BASIC METABOLIC PANEL (08/11/2024 6:44 AM EST) BUN 4(L) 6 - 20 mg/dL 08/11/2024 7:24 AM EST LAB[facility] CREATININE 0.6 0.5 - 1.0 mg/dL 08/11/2024 7:24 AM EST LAB[facility]ATORY [facility] EGFR >90 >=60 mL/min 08/11/2024 7:24 AM EST LAB[facility]ATORY [facility] Comment:eGFR is calculated b ased on the CKD-EPI 2020 equation. SODIUM 139 135 - 146 mmol/L 08/11/2024 7:24 AM EST LAB[facility]ATORY [facility] POTASSIUM 3.8 3.5 - 5.1 mmol/L 08/11/2024 7:24 AM EST LAB[facility] Comment:Results may be false ly elevated due to hemolysis. CHLORIDE 105 98 - 107 mmol/L 08/11/2024 7:24 AM EST LAB[facility] CO2 20(L) 22 - 32 mmol/L 08/11/2024 7:24 AM EST LAB[facility]ORY [facility] ANION GAP 14 7 - 15 mmol/L 08/11/2024 7:24 AM EST LAB[facility] GLUCOSE 72 70 - 120 mg/dL 08/11/2024 7:24 AM EST [facility] CALCIUM 8.7 8.4 - 10.2 mg/dL 08/11/2024 7:24 AM EST LABORATORY [facility] Blood Venous blood specimen / Unknown Venipuncture / Unknown 08/11/2024 6:44 AM EST 08/11/2024 6:54 AM EST us Elizabeth Brink MD LAB BLOOD ORDERABLES Final Resu lt LABORATORY [facility] [address] [place] [address] * PHOSPHORUS (08/10/2024 5:43 AM EST) Phosphorus 3.0 2.5 - 4.8 mg/dL 08/10/2024 8:26 AM EST LAB[facility]ATORY [facility] Blood Venous blood specimen / Unknown Venipuncture / Unknown 08/10/2024 5:43 AM EST 08/10/2024 6:08 AM EST us Enoc Nugent DO LAB BLOOD ORDERABLES Poronima l Result LABORATORY [facility] [address] [place] [address] * MAGNESIUM (08/10/2024 5:43 AM EST) Magnesium 1.9 1.5 - 2.6 mg/dL 08/10/2024 8:26 AM EST LAB[facility]ATORY [facility] Blood Venous blood specimen / Unknown Venipuncture / Unknown 08/10/2024 5:43 AM EST 08/10/2024 6:08 AM EST us Enoc Nugent DO LAB BLOOD ORDERABLES Poornima l Result [facility] [address] [place] [address] * CBC (08/10/2024 5:43 AM EST) WBC 5.93 4.00 - 10.80 K/uL 08/10/2024 6:28 AM EST LAB[facility]ATORY [facility] RBC 4.41 3.85 - 5.15 M/uL 08/10/2024 6:28 AM EST LAB[facility] HGB 13.0 12.0 - 15.3 g/dL 08/10/2024 6:28 AM EST [facility] HCT 38.3 36.0 - 45.2 % 08/10/2024 6:28 AM EST [facility] MCV 86.8 81.5 - 97.5 fL 08/10/2024 6:28 AM EST LAB[facility] MCH 29.5 27.0 - 34.0 pg 08/10/2024 6:28 AM EST LAB[facility]ATORY [facility] MCHC 33.9 32.0 - 36.0 g/dL 08/10/2024 6:28 AM EST LAB[facility] RDW 14.2 11.5 - 15.5 % 08/10/2024 6:28 AM EST LAB[facility] PLT 302 140 - 400 K/uL 08/10/2024 6:28 AM EST LAB[facility] MPV 11.7 6.6 - 11.1 fL 08/10/2024 6:28 AM EST LAB[facility] nRBCs 0 <=0 /100 WBCs 08/10/2024 6:28 AM EST LAB[facility]ATORY [facility] Blood Venous blood specimen / Unknown Venipuncture / Unknown 08/10/2024 5:43 AM EST 08/10/2024 6:08 AM EST us Elizabeth Brink MD LAB BLOOD ORDERABLES Final Resu lt [facility] [address] [place] [address] * (ABNORMAL) BASIC METABOLIC PANEL (08/10/2024 5:43 AM EST) BUN 4(L) 6 - 20 mg/dL 08/10/2024 6:44 AM EST [facility] CREATININE 0.7 0.5 - 1.0 mg/dL 08/10/2024 6:44 AM EST [facility] EGFR >90 >=60 mL/min 08/10/2024 6:44 AM EST [facility] Comment:eGFR is calculated b ased on the CKD-EPI 2020 equation. SODIUM 139 135 - 146 mmol/L 08/10/2024 6:44 AM EST [facility] POTASSIUM 3.6 3.5 - 5.1 mmol/L 08/10/2024 6:44 AM EST [facility] CHLORIDE 105 98 - 107 mmol/L 08/10/2024 6:44 AM EST [facility] CO2 21(L) 22 - 32 mmol/L 08/10/2024 6:44 AM EST [facility] ANION GAP 13 7 - 15 mmol/L 08/10/2024 6:44 AM EST [facility] GLUCOSE 70 70 - 120 mg/dL 08/10/2024 6:44 AM EST [facility] CALCIUM 8.2(L) 8.4 - 10.2 mg/dL 08/10/2024 6:44 AM EST [facility] Blood Venous blood specimen / Unknown Venipuncture / Unknown 08/10/2024 5:43 AM EST 08/10/2024 6:08 AM EST us Elizabeth Brink MD LAB BLOOD ORDERABLES Final Resu lt LABORATORY [facility] [address] [place] [address] * (ABNORMAL) BASIC METABOLIC PANEL (08/09/2024 7:02 AM EST) BUN 5(L) 6 - 20 mg/dL 08/09/2024 8:06 AM EST [facility] CREATININE 0.6 0.5 - 1.0 mg/dL 08/09/2024 8:06 AM EST [facility] EGFR >90 >=60 mL/min 08/09/2024 8:06 AM EST [facility] Comment:eGFR is calculated b ased on the CKD-EPI 2020 equation. SODIUM 139 135 - 146 mmol/L 08/09/2024 8:06 AM EST [facility] POTASSIUM 3.8 3.5 - 5.1 mmol/L 08/09/2024 8:06 AM EST [facility] CHLORIDE 107 98 - 107 mmol/L 08/09/2024 8:06 AM EST [facility] CO2 19(L) 22 - 32 mmol/L 08/09/2024 8:06 AM EST [facility] ANION GAP 13 7 - 15 mmol/L 08/09/2024 8:06 AM EST [facility] GLUCOSE 77 70 - 120 mg/dL 08/09/2024 8:06 AM EST [facility] CALCIUM 8.4 8.4 - 10.2 mg/dL 08/09/2024 8:06 AM EST [facility] Blood Venous blood specimen / Unknown Venipuncture / Unknown 08/09/2024 7:02 AM EST 08/09/2024 7:39 AM EST us Elizabeth Brink MD LAB BLOOD ORDERABLES Final Resu lt [facility] [address] [place] [address] * CBC (08/09/2024 7:01 AM EST) WBC 7.96 4.00 - 10.80 K/uL 08/09/2024 7:47 AM EST [facility] RBC 4.42 3.85 - 5.15 M/uL 08/09/2024 7:47 AM EST [facility] HGB 12.8 12.0 - 15.3 g/dL 08/09/2024 7:47 AM EST [facility] HCT 38.3 36.0 - 45.2 % 08/09/2024 7:47 AM EST [facility] MCV 86.7 81.5 - 97.5 fL 08/09/2024 7:47 AM EST [facility] MCH 29.0 27.0 - 34.0 pg 08/09/2024 7:47 AM EST LABORATORY [facility] MCHC 33.4 32.0 - 36.0 g/dL 08/09/2024 7:47 AM EST LABORATORY [facility] RDW 14.0 11.5 - 15.5 % 08/09/2024 7:47 AM EST LABORATORY [facility] PLT 292 140 - 400 K/uL 08/09/2024 7:47 AM EST LABORATORY [facility] MPV 11.9 6.6 - 11.1 fL 08/09/2024 7:47 AM EST LABORATORY [facility] nRBCs 0 <=0 /100 WBCs 08/09/2024 7:47 AM EST LABORATORY [facility] Blood Venous blood specimen / Unknown Venipuncture / Unknown 08/09/2024 7:01 AM EST 08/09/2024 7:39 AM EST us Elizabeth Brink MD LAB BLOOD ORDERABLES Final Resu lt LABORATORY [facility] [address] [place] [address] * CT ABD/PELVIS W IV AND W ORAL CONTRAST (08/08/2024 10:39 PM EST) Anatomical Region Laterality Modality Body, Abdomen, Pelvis Computed T omography 08/08/2024 11:0 7 PM EST Impressions 08/08/2024 11:04 PM EST IMPRESSION 1. Minimal bowel distension, overall improved from prior, likely resolving postoperative ileus. Correlate clinically. Liquid enteric contrast is observed within both small bowel limbs. Repeat exam can be obtained if symptoms progress/worsen or fail to resolve. 2. Additional findings as above. Narrative 08/08/2024 11:04 PM EST EXAM EXAM: CT ABD/PELVIS W IV AND W ORAL CONTRAST DATE TIME: 08/08/2024 - 08/08/2024 10:39 pm HISTORY POD 4 s/p ALVARO with c/f bowel obstructionBari protocol for PO contrast TECHNIQUE Contiguous sections were obtained through the abdomen and pelvis from the lung base to the pubic symphysis after the administration of intravenous contrast material. Coronal and sagittal reformations were performed on the CT scanner workstation. Oral Contrast: Radiopaque (positive) oral contrast was administered. Type and volume documented separately by nuclear medicine pet ct technologist. IV Contrast: IV contrast was administered. Type and volume documented separately by nuclear medicine pet ct technologist. Other contrast: No additional contrast was administered. COMPARISON RADIOLOGY EXAM - CT (IMAGES ONLY, NO REPORT), ACC: [id number], dated 2024-08-08 12:41:49None available. FINDINGS LINES AND DEVICES: None. LOWER CHEST: [...] ileus or similar. No pneumatosis or portal venous gas is observed. Enteric contrast has traversed [...] destruction. Lumbar spine degenerative changes are observed. Procedure Note Vignesh Field MD - 08/08/2024 EXAM EXAM: CT ABD/PELVIS W IV AND W ORAL CONTRAST DATE TIME: 08/08/2024 - 08/08/2024 10:39 pm HISTORY POD 4 s/p ALVARO with c/f bowel obstructionBari protocol for PO contrast TECHNIQUE Contiguous sections were obtained through the abdomen and pelvis from thelung base to the pubic symphysis after the administration of intravenouscontrast material. Coronal and sagittal reformations were performed on theCT scanner workstation. Oral Contrast: Radiopaque (positive) oral contrast was administered. Typeand volume documented separately by nuclear medicine pet ct technologist. IV Contrast: IV contrast was administered. Type and volume documentedseparately by nuclear medicine pet ct technologist. Other contrast: No additional contrast was administered. COMPARISON RADIOLOGY EXAM - CT (IMAGES ONLY, NO REPORT), ACC: [id number], [id number] 12:41:49None available. FINDINGS LINES AND DEVICES: None. LOWER CHEST: Atelectasis LIVER: Unremarkable. BILIARY: Unremarkable. PANCREAS: Unremarkable. SPLEEN: Unremarkable. ADRENALS: Unremarkable. KIDNEYS/URETERS: Urinary contrast excretion. BLADDER: Unremarkable. REPRODUCTIVE ORGANS: Unremarkable. GASTROINTESTINAL TRACT: Status post single anastomosis duodenal switch.Overall improved bowel distension compared to prior with small residualloop of mildly dilated biliary pancreatic limb small bowel in the leftupper quadrant measuring up to 4.6 centimeters. Duodenal distension isdiminished/resolved. Findings may reflect resolving postoperative ileusor similar. No pneumatosis or portal venous gas is observed. Entericcontrast has traversed to the level of the jejunum. There is a smallamount of stool within the distal colon and rectum. Enteric contrast isseen within both jejunal limbs as seen on series 2, image 135. LYMPH NODES: No abominal or pelvic lymphadenopathy by CT size criteria. VESSELS: Unremarkable. PERITONEUM/RETROPERITONEUM: There is a small amount of fluid layeringdependently in the lower abdomen/pelvis which may reflect resolvingpostoperative changes and/or sequela of ovarian follicle rupture. Nodiscrete rim enhancement. No free air. ABDOMINAL WALL/SOFT TISSUES: No focal fluid collection or free air. Thereis a small amount of air in the right ventral abdominal wall likely fromrecent subcutaneous injection. BONES: No acute fracture, malalignment or focal osseous destruction.Lumbar spine degenerative changes are observed. IMPRESSION IMPRESSION 1. Minimal bowel distension, overall improved from prior, likely resolvingpostoperative ileus. Correlate clinically. Liquid enteric contrast isobserved within both small bowel limbs. Repeat exam can be obtained ifsymptoms progress/worsen or fail to resolve. 2. Additional findings as above. Stacia Limon DO RAD CT Final Result * DIFFERENTIAL, TECHNOLOGIST REVIEW (08/08/2024 6:22 PM EST) Blood Venous blood specimen / Unknown Venipuncture / Unknown 08/08/2024 6:22 PM EST 08/08/2024 6:30 PM EST Elizabeth Brink MD LAB BLOOD ORDERABLES Final Resu lt Performing Organization Address City/[facility]/ZIP Co de Phone Number LABORATORY [facility] [address] [place] [address] * ABO/RH (08/08/2024 6:22 PM EST) ABO O 08/08/2024 7:15 PM EST LABORATORY [facility] BLOOD BANK Rh Positive 08/08/2024 7:15 PM EST LABORATORY [facility] BLOOD BANK Blood Venous blood specimen / Unknown Venipuncture / Unknown 08/08/2024 6:22 PM EST 08/08/2024 6:30 PM EST Elizabeth Brink MD LAB BLOOD BANK TEST ORDERABLES Final Result Performing Organization Address [facility] Phone Number LABORATORY [facility] BLOOD BANK [address] [place] [address] * (ABNORMAL) DIFFERENTIAL, AUTOMATED (08/08/2024 6:22 PM EST) WBC 8.48 4.00 - 10.80 K/uL 08/08/2024 7:26 PM EST [facility] Neutrophils % 90.3(H) 40.0 - 75.0 % 08/08/2024 7:26 PM EST [facility] Lymphocytes % 7.7(L) 18.0 - 42.0 % 08/08/2024 7:26 PM EST [facility] Monocytes % 1.5 1.0 - 11.0 % 08/08/2024 7:26 PM EST [facility] Eosinophils % 0.1 0.0 - 6.0 % 08/08/2024 7:26 PM EST [facility] Basophils % 0.2 0.0 - 2.0 % 08/08/2024 7:26 PM EST [facility] Immature Granulocytes % 0.2 0.0 - 2.0 % 08/08/2024 7:26 PM EST [facility] Absolute Neutrophils 7.65 1.80 - 7.70 K/uL 08/08/2024 7:26 PM EST [facility] Absolute Lymphocytes 0.65(L) 1.00 - 4.80 K/ul 08/08/2024 7:26 PM EST [facility] Absolute Monocytes 0.13 0.00 - 1.10 K/uL 08/08/2024 7:26 PM EST [facility] Absolute Eosinophils 0.01 0.00 - 0.70 K/uL 08/08/2024 7:26 PM EST [facility] Absolute Basophils 0.02 0.00 - 0.20 K/uL 08/08/2024 7:26 PM EST [facility] Absolute Immature Granulocytes 0.02 0.00 - 0.20 K/uL 08/08/2024 7:26 PM EST [facility] Blood Venous blood specimen / Unknown Venipuncture / Unknown 08/08/2024 6:22 PM EST 08/08/2024 6:30 PM EST us Elizabeth Brink MD LAB BLOOD ORDERABLES Final Resu lt Performing Organization Address City/State/[facility] Co de Phone Number [facility] [address] [place] [address] * CBC (08/08/2024 6:22 PM EST) WBC 8.48 4.00 - 10.80 K/uL 08/08/2024 7:19 PM EST [facility] RBC 5.19 3.85 - 5.15 M/uL 08/08/2024 7:19 PM EST [facility] HGB 15.1 12.0 - 15.3 g/dL 08/08/2024 7:19 PM EST [facility] HCT 45.1 36.0 - 45.2 % 08/08/2024 7:19 PM EST [facility] MCV 86.9 81.5 - 97.5 fL 08/08/2024 7:19 PM EST [facility] MCH 29.1 27.0 - 34.0 pg 08/08/2024 7:19 PM EST [facility] MCHC 33.5 32.0 - 36.0 g/dL 08/08/2024 7:19 PM EST [facility] RDW 13.8 11.5 - 15.5 % 08/08/2024 7:19 PM EST [facility] PLT 321 140 - 400 K/uL 08/08/2024 7:19 PM EST [facility] MPV 11.8 6.6 - 11.1 fL 08/08/2024 7:19 PM EST [facility] nRBCs 0 <=0 /100 WBCs 08/08/2024 7:19 PM EST [facility] Blood Venous blood specimen / Unknown Venipuncture / Unknown 08/08/2024 6:22 PM EST 08/08/2024 6:30 PM EST Elizabeth Brink MD LAB BLOOD ORDERABLES Final Resu lt [facility] [address] [place] [address] * PHOSPHORUS (08/08/2024 6:22 PM EST) Phosphorus 3.4 2.5 - 4.8 mg/dL 08/08/2024 6:59 PM EST [facility] Blood Venous blood specimen / Unknown Venipuncture / Unknown 08/08/2024 6:22 PM EST 08/08/2024 6:30 PM EST Elizabeth Brink MD LAB BLOOD ORDERABLES Final Resu lt Performing Organization Address City/[facility]/ZIP Co de Phone Number LABORATORY [facility] [address] [place] [address] * MAGNESIUM (08/08/2024 6:22 PM EST) Magnesium 1.9 1.5 - 2.6 mg/dL 08/08/2024 6:59 PM EST [facility] Blood Venous blood specimen / Unknown Venipuncture / Unknown 08/08/2024 6:22 PM EST 08/08/2024 6:30 PM EST Elizabeth Brink MD LAB BLOOD ORDERABLES Final Resu lt [facility] [address] [place] [address] * TYPE AND SCREEN (08/08/2024 6:22 PM EST) ABO O 08/08/2024 7:09 PM EST LABORATORY [facility] BLOOD BANK Rh Positive 08/08/2024 7:09 PM EST LABORATORY [facility] BLOOD BANK Red Blood Cell Antibody Screen Negative 08/08/2024 7:09 PM EST LABORATORY [facility] BLOOD BANK Specimen Expiration Date 08/11/2024 23:59 08/08/2024 7:09 PM EST LABORATORY [facility] BLOOD BANK Blood Venous blood specimen / Unknown Venipuncture / Unknown 08/08/2024 6:22 PM EST 08/08/2024 6:30 PM EST us Elizabeth Brink MD LAB BLOOD BANK TEST ORDERABLES Final Result Performing Organization Address [facility]/ZIP Co de Phone Number LABORATORY [facility] BLOOD BANK [address] [place] [address] * LACTATE (08/08/2024 6:22 PM EST) Pathologist [facility] Lactate 1.0 0.4 - 2.0 mmol/L 08/08/2024 6:57 PM EST LABORATORY [facility] Blood Venous blood specimen / Unknown Venipuncture / Unknown 08/08/2024 6:22 PM EST 08/08/2024 6:30 PM EST us Elizabeth Brink MD LAB BLOOD ORDERABLES Final Resu lt Performing Organization Address City/[facility]/ZIP Co de Phone Number LABORATORY [facility] [address] [place] [address] * (ABNORMAL) BASIC METABOLIC PANEL (08/08/2024 6:22 PM EST) BUN 6 6 - 20 mg/dL 08/08/2024 6:59 PM EST LABORATORY [facility] CREATININE 0.6 0.5 - 1.0 mg/dL 08/08/2024 6:59 PM EST LABORATORY [facility] EGFR >90 >=60 mL/min 08/08/2024 6:59 PM EST LABORATORY [facility] Comment:eGFR is calculated b ased on the CKD-EPI 2020 equation. SODIUM 138 135 - 146 mmol/L 08/08/2024 6:59 PM EST [facility] POTASSIUM 4.3 3.5 - 5.1 mmol/L 08/08/2024 6:59 PM EST [facility] CHLORIDE 107 98 - 107 mmol/L 08/08/2024 6:59 PM EST [facility] CO2 15(L) 22 - 32 mmol/L 08/08/2024 6:59 PM EST [facility] ANION GAP 16(H) 7 - 15 mmol/L 08/08/2024 6:59 PM EST [facility] GLUCOSE 104 70 - 120 mg/dL 08/08/2024 6:59 PM EST [facility] CALCIUM 8.5 8.4 - 10.2 mg/dL 08/08/2024 6:59 PM EST [facility] Blood Venous blood specimen / Unknown Venipuncture / Unknown 08/08/2024 6:22 PM EST 08/08/2024 6:30 PM EST Elizabeth Brink MD LAB BLOOD ORDERABLES Final Resu lt [facility] [address] [place] [address] documented in this encounter Visit Diagnoses Diagnosis Small bowel obstruction (HCC) Unspecified intestinal obstruction S/P gastric bypass Bariatric surgery status Abdominal pain Abdominal pain, unspecified site documented in this encounter Administered Medications Inactive Administered Medications - up to 3 most recent administrations Medication Order MAR Action Action Date Dose Rate Site Acetaminophen (Ofirmev) inj 1,000 mg 1,000 mg, Intravenous, Q6H, 4 doses, First dose on 08/08/24 at 1815, Last dose on 08/09/24 at 1200, Administer over 15 Minutes, Administer undiluted over 15 minutes! NOTE: Maximum of 4000 mg per 24 hours of acetaminophen from all acetaminophen containing products., Admission, Indication: Patient is strictly NPO New Bag 08/09/2024 11:40 AM EST 1,000 mg 400 mL/hr New Bag 08/09/2024 5:16 AM EST 1,000 mg 400 mL/hr New Bag 08/08/2024 11:31 PM EST 1,000 mg 400 mL/hr Acetaminophen (Tylenol) tab 975 mg 975 mg, Oral, Q6H PRN Pain, Mild, Starting on 08/09/24 at 1222, Until Sat08/10/24 at 0908 Given 08/09/2024 7:18 PM EST 975 mg Acetaminophen (Tylenol) tab 975 mg 975 mg, Oral, Q6H PRN Pain, Mild, Pain, Moderate, Starting on Sat08/10/24 at 0907, Until Sat08/10/24 at 1414 Given 08/10/2024 10:55 AM EST 975 mg Acetaminophen (Tylenol) tab 975 mg 975 mg, Oral, Q6H, First dose (after last modification) on 08/10/24 at 1800, Until Discontinued Given 08/11/2024 11:11 AM EST 975 mg Given 08/11/2024 5:37 AM EST 975 mg Given 08/10/2024 11:28 PM EST 975 mg Enoxaparin (Lovenox) inj 60 mg 60 mg, Subcutaneous, Q12H, First dose on 08/08/24 at 2100, Until Discontinued, If patient is on warfarin, inform provider if daily INR value is 2 or greater!, Admission Given 08/11/2024 9:33 AM EST 60 mg Abdom en Left Lower Given 08/10/2024 8:54 PM EST 60 mg Ab domen Left Upper Given 08/10/2024 8:40 AM EST 60 mg Ab domen Left Upper escitalopram (Lexapro) tab 10 mg 10 mg, Oral, Daily(AM), First dose on 08/09/24 at 1300, Until Discontinued Given 08/11/2024 9:33 AM EST 10 mg Given 08/10/2024 8:40 AM EST 10 mg Given 08/09/2024 2:52 PM EST 10 mg Iohexol (Omnipaque) 9 MG/ML oral solution 1,000 mL 1,000 mL, Oral, ONCE, On 08/08/24 at 2315, For 1 dose, Radiology Medication Routing (Non-IR) Given 08/08/2024 11:15 PM EST 50 mL Iopamidol (Isovue 370) inj 80 mL 80 mL, Intravenous, ONCE, On 08/08/24 at 2315, For 1 dose, Radiology Medication Routing (Non-IR) Given 08/08/2024 11:15 PM EST 85 mL Isolyte-S pH 7.4 infusion Intravenous, at 125 mL/hr, Plasma-LYTE 148, isolyte-S, and isolyte-S pH 7.4 are considered equivalent - including for MAR barcode scanning., CONTINUOUS, Starting on 08/08/24 at 1815, Until Sat08/11/24 at 0629, Admission New Bag 08/10/2024 11:40 PM EST 125 mL/hr New Bag 08/10/2024 4:47 AM EST 125 mL/hr New Bag 08/09/2024 8:43 PM EST 125 mL/hr ondansetron (Zofran) inj 4 mg 4 mg, IV Push, Q6H PRN Other, May use for nausea or vomiting if patient unable to take oral ondansetron, Starting on 08/08/24 at 1735, Until Sat08/11/24 at 1551, Admission Given 08/08/2024 10:50 PM EST 4 mg ondansetron ODT (Zofran) tab 4 mg 4 mg, On Tongue, Q6H PRN Nausea, Vomiting, Starting on 08/08/24 at 1735, Until Sat08/11/24 at 1551, Admission oxygen GAS Inhalation, OXYGEN, First dose on 08/08/24 at 1815, Until Discontinued, Device/Managed by: Low Flow Device, Goal SPO2 (%): 91-95, Starting Device: Nasal Cannula, Initial Flow Rate (LPM): 2, Lowest Support: Nasal Cannula: Flow 0-6 LPM. Titrate up/down by 1 LPM., Higher Support: Non-Rebreather (NRB) Mask: Minimum of 10 LPM. Titrate to maintain bag inflation., Titration Interval: Q2 minutes and as needed., Notify Provider: For sudden DECREASE in resting SPO2 to less than 85% and when escalating delivery device., Wean patient off Oxygen when the oxygen saturation is greater than or equal to 93% Pantoprazole (Protonix) inj 40 mg 40 mg, IV Push, Q12H, First dose on 08/08/24 at 2100, Until Discontinued, IV push instructions: Flush I.V. Line before and after administration. In-line filter not required. 2-minute infusion: The volume of reconstituted solution (4mg/ml) to be injected may be administered intravenously over at least 2 minutes. ( Dilute each vial with 10 ml of 0.9% saline PF) Given 08/11/2024 9:45 AM EST 40 mg Given 08/10/2024 8:54 PM EST 40 mg Given 08/10/2024 8:40 AM EST 40 mg potassium chloride 10 mEq in 100 mL ivpb LOCKED DOSE 10 mEq, Peripheral IV, Q1H, 3 doses, First dose on Sat08/10/24 at 0800, Last dose on Sat08/10/24 at 1000, Administer over 60 Minutes, Standard infusion duration is 60 minutes. New Bag 08/10/2024 8:42 AM EST 10 mEq 100 mL/ hr sodium chloride 0.9 % flush peripheral jesus 3 mL 3 mL, IV Push, Q8H, First dose on 08/08/24 at 2200, Until Discontinued, Do not flush if lock, PICC, or central line not in place; IV infusing or unable to flush., Admission Given 08/10/2024 10:00 PM EST 3 mL Given 08/10/2024 2:00 PM EST 3 mL Given 08/10/2024 6:00 AM EST 3 mL topiramate (topAMAX) tab 25 mg 25 mg, Oral, TID 06;12;18, First dose on Sat08/09/24 at 1300, Until Discontinued Given 08/11/2024 11:11 AM EST 25 mg Given 08/11/2024 5:39 AM EST 25 mg Given 08/10/2024 5:49 PM EST 25 mg documented in this encounter Active and Recently Administered Medications Times are shown in EST. Scheduled Medication Order 08/09/2024 08/10/2024 08/11/2024 Acetaminophen (Ofirmev) inj 1,000 mg (COMPLETED) 1,000 mg, Intravenous, Q6H, 4 doses, First dose on 08/08/24 at 1815, Last dose on 08/09/24 at 1200, Administer over 15 Minutes, Administer undiluted over 15 minutes! NOTE: Maximum of 4000 mg per 24 hours of acetaminophen from all acetaminophen containing products., Admission, Indication: Patient is strictly NPO 0516 (New Bag - Provider: Alexander Melo RN)1140 (New Bag - Provider: Jodi Vizcaino RN) Acetaminophen (Tylenol) tab 975 mg 975 mg, Oral, Q6H, First dose (after last modification) on 08/10/24 at 1800, Until Discontinued 1749 (Given - Provider: Michael Meadows, SOL)2328 (Given - Provider: Alexander Melo, RN) 0537 (Given - Provider: Alexander Melo, SOL)1111 (Given - Provider: Antonieta Fox RN) Enoxaparin (Lovenox) inj 60 mg 60 mg, Subcutaneous, Q12H, First dose on 08/08/24 at 2100, Until Discontinued, If patient is on warfarin, inform provider if daily INR value is 2 or greater!, Admission 0743 (Given - Provider: Jodi Vizcaino RN)2009 (Given - Provider: Alexander Melo RN) 0840 (Given - Provider: Michael Meadows RN)205 (Given - Provider: Alexander Melo RN) 0933 (Given - Provider: Mikayla Florence LPN) escitalopram (Lexapro) tab 10 mg 10 mg, Oral, Daily(AM), First dose on Sat08/09/24 at 1300, Until Discontinued 1452 (Given - Provider: oJdi Vizcaino RN) 0840 (Given - Provider: Michael Meadows RN) 0933 (Given - Provider: Mikayla Florence LPN) oxygen GAS Inhalation, OXYGEN, First dose on 08/08/24 at 1815, Until Discontinued, Device/Managed by: Low Flow Device, Goal SPO2 (%): 91-95, Starting Device: Nasal Cannula, Initial Flow Rate (LPM): 2, Lowest Support: Nasal Cannula: Flow 0-6 LPM. Titrate up/down by 1 LPM., Higher Support: Non-Rebreather (NRB) Mask: Minimum of 10 LPM. Titrate to maintain bag inflation., Titration Interval: Q2 minutes and as needed., Notify Provider: For sudden DECREASE in resting SPO2 to less than 85% and when escalating delivery device., Wean patient off Oxygen when the oxygen saturation is greater than or equal to 93% 0000 (Oxygen Off - Provider: Alexander Melo RN)0800 (Oxygen Off - Provider: Jodi Vizcaino RN)1600 (Oxygen Off - Provider: Jodi Vizcaino RN) 0000 (Oxygen Off - Provider: Alexander Melo RN)0800 (Oxygen Off - Provider: Michael Meadows RN)1600 (Oxygen Off - Provider: Michael Meadows RN) 0000 (Oxygen Off - Provider: Alexander Melo RN)0800 (Oxygen Off - Provider: Mikayla Florence LPN) Pantoprazole (Protonix) inj 40 mg 40 mg, IV Push, Q12H, First dose on Sat08/08/24 at 2100, Until Discontinued, IV push instructions: Flush I.V. Line before and after administration. In-line filter not required. 2-minute infusion: The volume of reconstituted solution (4mg/ml) to be injected may be administered intravenously over at least 2 minutes. ( Dilute each vial with 10 ml of 0.9% saline PF) 0743 (Given - Provider: Jodi Vizcaino RN)2009 (Given - Provider: Alexander Melo RN) 0840 (Given - Provider: Michael Meadows RN)2053 (Given - Provider: Alexander Melo RN) 0945 (Given - Provider: Antonieta Fox RN) potassium chloride 10 mEq in 100 mL ivpb LOCKED DOSE () 10 mEq, Peripheral IV, Q1H, 3 doses, First dose on Sat08/10/24 at 0800, Last dose on Sat08/10/24 at 1000, Administer over 60 Minutes, Standard infusion duration is 60 minutes. 0842 (New Bag - Provider: Michael Meadows RN)0900 (Not Given - Provider: Michael Meadows RN - Reason: Refused-Notify Provider - Comment: Too painful, aware)1000 (Not Given - Provider: Michael Meadows RN - Reason: Refused-Notify Provider - Comment: Too painful MD aware) sodium chloride 0.9 % flush peripheral jesus 3 mL 3 mL, IV Push, Q8H, First dose on Sat08/08/24 at 2200, Until Discontinued, Do not flush if lock, PICC, or central line not in place; IV infusing or unable to flush., Admission 0600 (Given - Provider: Alexander Melo RN)1400 (Given - Provider: Jodi Vizcaino RN)2200 (Given - Provider: Alexander Melo RN) 0600 (Given - Provider: Alexander Melo RN)1400 (Given - Provider: Michael Meadows RN)2200 (Given - Provider: Alexander Melo RN) 0600 (Not Given - Provider: Alexander Melo RN - Reason: Parameter(s) Not Met) topiramate (topAMAX) tab 25 mg 25 mg, Oral, TID 06;12;18, First dose on 08/09/24 at 1300, Until Discontinued 1300 (Not Given - Provider: Jodi Vizcaino RN - Reason: Parameter(s) Not Met - Comment: dose too close)1722 (Given - Provider: Jodi Vizcaino RN) 0445 (Given - Provider: Alexander Melo RN)1216 (Given - Provider: Michael Meadows, SOL)1749 (Given - Provider: Michael Meadows, SOL) 0539 (Given - Provider: Alexander Melo, SOL)1111 (Given - Provider: Antonieta Fox RN) Continuous Medication Order 08/09/2024 08/10/2024 08/11/2024 Isolyte-S pH 7.4 infusion (CANCELED) Intravenous, at 125 mL/hr, Plasma-LYTE 148, isolyte-S, and isolyte-S pH 7.4 are considered equivalent - including for MAR barcode scanning., CONTINUOUS, Starting on 08/08/24 at 1815, Until Tu08/11/24 at 0629, Admission 0249 (New Bag - Provider: Alexander Melo RN)0516 (Paused - Provider: Jodi Vizcaino, SOL)0531 (Restarted - Provider: Jodi Vizcaino RN)1104 (KVO - Provider: Jodi Vizcaino, SOL)1140 (New Bag - Provider: Jodi Vizcaino RN)1140 (Paused - Provider: Jodi Vizcaino RN)1203 (Restarted - Provider: Jodi Vizcaino RN)1527 (Paused - Provider: Jodi Vizcaino RN)1554 (Restarted - Provider: Jodi Vizcaino RN)1608 (Paused - Provider: Jodi Vizcaino RN)1610 (Restarted - Provider: Jodi Vizcaino RN)1725 (Paused - Provider: Jodi Vizcaino RN)1728 (Restarted - Provider: Jodi Vizcaino RN)1828 (Rate Verify - Provider: Jodi Vizcaino RN)2043 (New Bag - Provider: Alexander Melo RN) 0447 (New Bag - Provider: Alexander Melo RN)2340 (New Bag - Provider: Alexander Melo RN) 0629 (Stopped - Provider: Alexander Melo, SOL) PRN Medication Order 08/09/2024 08/10/2024 08/11/2024 Acetaminophen (Tylenol) tab 975 mg (CANCELED) 975 mg, Oral, Q6H PRN Pain, Mild, Starting on 08/09/24 at 1222, Until 08/10/24 at 0908 1918 (Given - Provider: Alexander Melo RN) Acetaminophen (Tylenol) tab 975 mg (CANCELED) 975 mg, Oral, Q6H PRN Pain, Mild, Pain, Moderate, Starting on 08/10/24 at 0907, Until 08/10/24 at 1414 1055 (Given - Provider: Michael Meadows RN) ondansetron (Zofran) inj 4 mg(Linked Group 1) 4 mg, IV Push, Q6H PRN Other, May use for nausea or vomiting if patient unable to take oral ondansetron, Starting on 08/08/24 at 1735, Until 08/11/24 at 1551, Admission ondansetron ODT (Zofran) tab 4 mg(Linked Group 1) 4 mg, On Tongue, Q6H PRN Nausea, Vomiting, Starting on 08/08/24 at 1735, Until Sat08/11/24 at 1551, Admission Simethicone (Mylicon) chew tab 160 mg 160 mg, Oral, Q8H PRN Gas, Other, Bloating, Starting on 08/09/24 at 1223, Until Sat08/11/24 at 1551, Tablets need to be chewed before swallowing! Linked Groups Order Group 1: ondansetron ODT (Zofran) tab 4 mgJump to med 4 mg, On Tongue, Q6H PRN Nausea, Vomiting, Starting on 08/08/24 at 1735, Until Sat08/11/24 at 1551, Admission Or ondansetron (Zofran) inj 4 mgJump to med 4 mg, IV Push, Q6H PRN Other, May use for nausea or vomiting if patient unable to take oral ondansetron, Starting on 08/08/24 at 1735, Until Sat08/11/24 at 1551, Admission documented in this encounter Advance Directives * [...] Discussed due to patient's condition Care Teams Staffing Consultant Relationship Specialty Start Date End Date Cinthya Hatfield DO [address] [place] [address] PCP - General Family Medicine 01/29/24 documented as of this encounter
--- OUTSIDE RECORDS SUMMARY | 2024-09-17 06:11 | External Medical Summary ---
Author Name Unknown Address Unknown Organization K01:[facility] [place] [address] [place] [address] Laboratory Report Ordering Provider Test Date Status SUSAN TOVAR 08/10/2024 05:43:00 Final Observation Date Value Abnormality Reference (Units ) Status WBC, Total 08/10/2024 05:43:00 5.93 4.00-10.80 (K/uL) Final RBC 08/10/2024 05:43:00 4.41 3.85-5.15 (M/uL) Final Hemoglobin 08/10/2024 05:43:00 13.0 12.0-15.3 (g/dL) Final HCT 08/10/2024 05:43:00 38.3 36.0-45.2 (%) Final MCV 08/10/2024 05:43:00 86.8 81.5-97.5 (fL) Final MCH 08/10/2024 05:43:00 29.5 27.0-34.0 (pg) Final MCHC 08/10/2024 05:43:00 33.9 32.0-36.0 (g/dL) Final RDW 08/10/2024 05:43:00 14.2 11.5-15.5 (%) Final Platelets 08/10/2024 05:43:00 302 140-400 (K/uL) Final MPV 08/10/2024 05:43:00 11.7 6.6-11.1 (fL) Final Nucleated erythrocytes/100 leukocytes [Ratio] in Blood by Automated count 08/10/2024 05:43:00 0 <=0 (/100 WBCs) Final Performing Location [facility] [place] [facility] [address] [place] [address]
--- OUTSIDE RECORDS SUMMARY | 2024-09-17 06:11 | External Medical Summary ---
Author Name Unknown Address Unknown Organization K01:[facility] - [address] [place] [address] Laboratory Report Ordering Provider Test Date Status DERECK CALERO 08/10/2024 05:43:00 Final Observation Date Value Abnormality Reference (Units ) Status Phosphate 08/10/2024 05:43:00 3.0 2.5-4.8 (m g/dL) Final Performing Location [facility] - [address] [place] [address]
--- OUTSIDE RECORDS SUMMARY | 2024-09-17 06:11 | External Medical Summary | Summary of Care ---
Author Name Unknown Organization [facility] Address [address] [place] [address] Phone [phone] Care Team Providers Care Director Of Housing Name Role Phone Cinthya Hatfield DO Primary Care Provider [phone] Reason for Visit * Reason Comments Post-Op Encounter Details Date Type Department Care Team (Latest Contact Info) Description 08/20/2024 2:10 PM EST Telemedicine Nutrition & Weight Management, [facility] [address] [place] [address] Anjana Saunders RDN [address] [place] [address] Abnormal weight gain*; Intestinal postoperative nonabsorption; S/P bariatric surgery Allergies Active Allergy Reactions [...] contraception 08/04/2024 Pre-operative examination 07/03/2024 JOHNSON RESEARCH OTHER*[id number] 07/03/2024 Central obesity 06/15/2024 Super obese 06/12/2024 [...] mRNA, LNP-s, No Pre serve, 2-Dose Series (Zenefits) 08/29/2021,10/03/2020,09/12/2020 Hepatitis B, 20+ yrs 04/27/2022,12/15/2021,11/10 MMR [...] documented in this encounter Progress Notes * Anjana Saunders RDN - 08/20/2024 2:10 PM EST Nutrition & Weight Management / Bariatric Surgery Nutrition Post-Operative Follow-up Stage 2B - BPD-DS/ALVARO [facility] Name: Dina Acosta Location: NUTRITION & WEIGHT MANAGEMENT, [facility] Date: 08/20/2024 Time: 10:55 AM Patient was identified at visit by name and date. Patient location: HOME. I was in a hospital or clinic location. After connecting through televideo,patient was verified with two unique identifiers. Patient (or authorized legal wireless sales representative) was then informed that this was a Telemedicine visit and being conducted confidentially over secure lines. Methods to assure confidentiality were taken. Patient acknowledged consent and understanding of pr ivacy and security of the Telemedicine visit. The patient agreed to participate. s/p Caren 08/04/[address] Trejo 08/20/2024 7-10 day post op Was readmitted 08/08/2024 with acute onset of abd pain, N/V, feeling better now Patient reports protein intake of a 40-50 grams per day and fluid intake of Unsure oz per day. 2 shakes a day or yogurt and shake Food intolerance: No N/V: No Dizziness upon standing: yesterday felt dizzy in the shower vision went blurry Dumping: No Food diaries: No Exercise: Walking, ADLs Other issues: None Diet level: Stage 2, advance to 2B Initial Clinic Weight: 410 lbs Date: 10/17/2023 Presurgery weight: 360 lbs Stage 2B Weight today: 345 lbs self reported, - 15 lbs or - 4.1 % TBW Since Surgery Wt Readings from Last 10 Encounters: 08/08/24 (!) 169.3 kg (373 lb 3.8 oz) 08/05/24 (!) 179 kg (394 lb 10 oz) 07/03/24 (!) 171 kg (376 lb 14.4 oz) 06/12/24 (!) 174.6 kg (385 lb) 05/01/24 (!) 174.2 kg (384 lb) 04/23/24 (!) 178.6 kg (393 lb 12.8 oz) 04/02/24 (!) 176.8 kg (389 lb 12.8 oz) 01/29/24 (!) 184.4 kg (406 lb 8 oz) 01/01/24 (!) 189.5 kg (417 lb 11.2 oz) 12/25/23 (!) 190.8 kg (420 lb 9.6 oz) Assessed needs per bariatric protocol: Working to reach dietary targets. GOALS: Goal Fluid: at least 80-100 oz per day. Goal Protein: at least 80-100 grams per day. Not less than 600-70 calories per day. Reviewed diet level and materials provided. Patient [...] diet/vitamin guidelines. Plan: 1. Advance to Stage 2B. 2. Start supplementation as prescribed: MVI with Fe generic chewable or capsule one, twice a day, Super B complex or B1 once a day . 3. Continue to increase exercise/activity as tolerated. 4. Follow-up on 09/01/2024 5. Patient advised to use [employer] portal to send any follow up questions. Time spent: 18 min Anjana Saunders RDN documented in this encounter Plan of Treatment Upcoming Encounters Date Type Department Care Team (Late st Contact Info) Description 08/25/2024 1:00 PM EST Office Visit General Surgery, [place] [address] [place] [address] Sarah Trejo MD [address] [place] [address] 08/26/2024 9:40 AM EST Office Visit Nutrition & Weight Management, [place] [address] [place] [address] Prateek Ingram PA-C [facility] [place] [address] 09/01/2024 10:20 AM EST Telemedicine Nutrition & Weight Management, [place] [address] [place] [address] Dina Urbano CRNP [address] [place] [address] 09/01/2024 1:50 PM EST Telemedicine Nutrition & Weight Management, [facility] [address] [place] [address] Anjana Saunders RDN [address] [place] [address] 10/02/2024 8:00 AM EST Nutrition Services Nutrition & Weight Management, [facility] [address] [place] [address] Anjana Saunders RDN [address] [place] [address] 10/02/2024 9:00 AM EST Office Visit Nutrition & Weight Management, [facility] [address] [place] [address] Josie Dennison PA-C [address] [place] [address] 12/14/2024 3:20 PM EDT Telemedicine Nutrition & Weight Management, [place] [address] [place] [facility] [place] [address] Debbie Wing CRNP [address] [place] [facility] [place] [address] Health Maintenance Due Date Last Done Comments [...] Visit Diagnoses Diagnosis Abnormal weight gain- Primary 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
--- OUTSIDE RECORDS SUMMARY | 2024-09-17 06:11 | External Medical Summary | Summary of Care ---
Author Name Unknown Organization [facility] Address [address] [place] [address] Phone [phone] Care Team Providers Care Rehabilitation Aide Name Role Phone EzequielCinthya rizo Jeremy OROZCO Primary Care Provider Reason for Visit * Reason Onset Date Comments Appointment 08/17/2024 08.11.24 Encounter Details Date Type Department Care Team (Latest Contact Info) Description 08/17/2024 Medical Office Asst Telephone Care Coordination and Integration [address] [place] [address] Stephanie Peñaloza, SOL [address] [place] [address] Appointment ( 08.11.24) Allergies Active Allergy Reactions Criticality Noted Date Comments Amoxicillin 11/23/2005 Diphenhydramine Other (Please comment) High 11/29/19 18 Cephalexin High 04/23/2019 Itchy, hives, throat closing, chest tightness. documented as of this encounter (statuses as of 08/24/2024) Medications Montelukast Sodium 10 MG Oral Tablet [...] as of this encounter (statuses as of 08/24/2024) Active Problems Problem Noted Date Diagnosed Date Intestinal postoperative nonabsorption 4 Obesity, morbid (more than 1 00 lbs over ideal weight or BMI > 40) 08/06/2024 S/P bariatric surgery 08/04/2024 Depression with anxiety 08/04/2024 Encounter for counseling regarding contraception 08/04/2024 Pre-operative examination 07/03/2024 JOHNSON RESEARCH OTHER*[id number] 07/03/2024 Central obesity 06/15/2024 Super obese 06/12/2024 [...] as of this encounter (statuses as of 08/24/2024) Resolved Problems Problem Noted Date Diagnosed Date [...] as of this encounter (statuses as of 08/24/2024) Immunizations Name Administration Dates Next Due COVID-19 mRNA, LNP-s, No Pre serve, 2-Dose Series ([employer]) 08/29/2021,10/03/2020,09/12/2020 Hepatitis B, 20+ yrs 04/27/2022,12/15/2021,11/10 MMR [...] encounter Miscellaneous Notes * Telephone Encounter - Kadie Ortiz OSA - 08/24/2024 12:26 PM EST Done. 08/24/2024 * Telephone Encounter - Kadie Ortiz OSA - 08/20/2024 4:16 PM EST LMOM to schedule. 08/20/2024 * Telephone Encounter - Sebas Allen OSA - 08/19/2024 3:06 PM EST Patient called to [employer] appt; none available. Please contact patient with [...] 10:53 AM EST Patient was discharged from [facility] on 08/11/2024 and is in need of a hospital discharge follow up appointment. She also does not have any future PCP appointments scheduled. Front office staff, please contact patient to schedule a hospital discharge appointment. Thanks, Stephanie Peñaloza RN, BSN [facility] Medical Office Asst [phone] documented in this encounter Plan of Treatment Upcoming Encounters Date Type Department Care Team (Late st Contact Info) Description 08/25/2024 8:20 AM EST Office Visit [facility][1] Lukeaustyn Jordan [address] [phone] Sunny Navarro MD [address] [place] [address] 08/25/2024 1:00 PM EST Office Visit General Surgery, [address] [address] Sarah Trejo MD [facility] [place] [address] 09/01/2024 10:20 AM EST Telemedicine Nutrition & Weight Management, [address] [id number] Dina Urbano CRNP [address] [place] [id number] 09/01/2024 1:50 PM EST Telemedicine Nutrition & Weight Management, [facility] [address] [facility] [place] [address] Anjana Saunders RDN 132 [place] [address] 10/02/2024 8:00 AM EST Nutrition Services Nutrition & Weight Management, [facility] [address] [facility] [place] [address] Anjana Saunders RDN [address] [place] [address] 10/02/2024 9:00 AM EST Office Visit Nutrition & Weight Management, [facility] [address] [facility] [place] [address] Josie Dennison PA-C [address] [place] [address] 12/14/2024 3:20 PM EDT Telemedicine Nutrition & Weight Management, [address] [id number] Debbie Wing CRNP [address] [place] [phone] Health Maintenance Due Date Last Done Comments [...] Discussed due to patient's condition Care Teams Rehabilitation Aide Relationship Specialty Start Date End Date Cinthya Hatfield DO [address] [place] [address] PCP - General Family Medicine 01/29/24 documented as of this encounter
--- OUTSIDE RECORDS SUMMARY | 2024-09-17 06:11 | External Medical Summary | Summary of Care ---
Author Name Unknown Organization [facility] Address [address] [place] [address] Phone [phone] Care Team Providers Care Glass Cleaning Machine Tender Name Role Phone EzequielCinthya rizo Jeremy OROZCO Primary Care Provider Reason for Visit * Reason Onset Date Comments Appointment 08/17/2024 08.11.24 Encounter Details Date Type Department Care Team (Latest Contact Info) Description 08/17/2024 Hydro Electric Station Operator Telephone Care Coordination and Integration [address] [place] [address] Stephanie Peñaloza, SOL [address] [place] [address] Appointment ( 08.11.24) Allergies Active [...] contraception 08/04/2024 Pre-operative examination 07/03/2024 JOHNSON RESEARCH OTHER*[id number] 07/03/2024 Central obesity 06/15/2024 Super obese 06/12/2024 [...] mRNA, LNP-s, No Pre serve, 2-Dose Series (Deemelo) 08/29/2021,10/03/2020,09/12/2020 Hepatitis B, 20+ yrs 04/27/2022,12/15/2021,11/10 MMR [...] 08/19/2024 3:06 PM EST Patient called to [employer] appt; none available. Please contact patient with [...] 10:53 AM EST Patient was discharged from [facility] on 08/11/2024 and is in need of a hospital discharge follow up appointment. She also does not have any future PCP appointments scheduled. Front office staff, please contact patient to schedule a hospital discharge appointment. Thanks, Stephanie Peñaloza RN, BSN Float [employer] Electric Station Operator [phone] documented in this encounter Plan of Treatment Upcoming Encounters Date Type Department Care Team (Late st Contact Info) Description 08/25/2024 1:00 PM EST Office Visit General Surgery, [place] [address] [place] [address] Sarah Trejo MD [address] [place] [address] 09/01/2024 10:20 AM EST Telemedicine Nutrition & Weight Management, [place] [address] [place] [address] Dina Urbano CRNP [address] [place] [address] 09/01/2024 1:50 PM EST Telemedicine Nutrition & Weight Management, [facility] 132 [facility] [place] [address] Anjana Saunders RDN 132 [place] [address] 10/02/2024 8:00 AM EST Nutrition Services Nutrition & Weight Management, [facility] [address] [facility] [place] [address] Anjana Saunders RDN 132 [facility] [place] [address] 10/02/2024 9:00 AM EST Office Visit Nutrition & Weight Management, [facility] [address] [facility] [place] [address] Josie Dennison PA-C 132 [facility] [place] [address] 12/14/2024 3:20 PM EDT Telemedicine Nutrition & Weight Management, [place] [address] [place] [address] Debbie Wing CRNP [address] [place] [address] Health Maintenance Due Date Last Done Comments [...] Discussed due to patient's condition Care Teams Glass Cleaning Machine Tender Relationship Specialty Start Date End Date Cinthya Hatfield DO [address] [address] PCP - General Family Medicine 01/29/24 documented as of this encounter
--- OUTSIDE RECORDS SUMMARY | 2024-09-17 06:11 | External Medical Summary ---
Author Name Unknown Address Unknown Organization K01:[facility]ORY [place] [address] [place] [address] Laboratory Report Ordering Provider Test Date Status SUSAN TOVAR 08/11/2024 06:44:00 Final Observation Date Value Abnormality Reference (Units ) Status WBC, Total 08/11/2024 06:44:00 5.56 4.00-10.80 (K/uL) Final RBC 08/11/2024 06:44:00 4.90 3.85-5.15 (M/uL) Final Hemoglobin 08/11/2024 06:44:00 14.5 12.0-15.3 (g/dL) Final HCT 08/11/2024 06:44:00 42.4 36.0-45.2 (%) Final MCV 08/11/2024 06:44:00 86.5 81.5-97.5 (fL) Final MCH 08/11/2024 06:44:00 29.6 27.0-34.0 (pg) Final MCHC 08/11/2024 06:44:00 34.2 32.0-36.0 (g/dL) Final RDW 08/11/2024 06:44:00 14.4 11.5-15.5 (%) Final Platelets 08/11/2024 06:44:00 345 140-400 (K/uL) Final MPV 08/11/2024 06:44:00 11.6 6.6-11.1 (fL) Final Nucleated erythrocytes/100 leukocytes [Ratio] in Blood by Automated count 08/11/2024 06:44:00 0 <=0 (/100 WBCs) Final Performing Location LABORATORY [facility] [place] [place] - [facility] [place] [address]
--- OUTSIDE RECORDS SUMMARY | 2024-09-17 06:11 | External Medical Summary | Summary of Care ---
Author Name Unknown Organization [facility] Address [address] [place] [address] Phone [phone] Care Team Providers Care Cone Picker Name Role Phone EzequielCinthya rizo Jeremy OROZCO Primary Care Provider Reason for Visit * Reason Onset Date Comments Appointment 08/17/2024 08.11.24 Encounter Details Date Type Department Care Team (Latest Contact Info) Description 08/17/[address] Telephone Care Coordination and Integration [address] [place] [address] Stephanie Peñaloza, SOL [address] [place] [address] Appointment ( 08.11.24) Allergies Active Allergy Reactions Criticality Noted Date Comments Amoxicillin 11/23/2005 Diphenhydramine Other (Please comment) High 11/29/19 18 Cephalexin High 04/23/2019 Itchy, hives, throat closing, chest tightness. documented as of this encounter (statuses as of 08/19/2024) Medications Montelukast Sodium 10 MG Oral Tablet [...] as of this encounter (statuses as of 08/19/2024) Active Problems Problem Noted Date Diagnosed Date Intestinal postoperative nonabsorption 4 Obesity, morbid (more than 1 00 lbs over ideal weight or BMI > 40) 08/06/2024 S/P bariatric surgery 08/04/2024 Depression with anxiety 08/04/2024 Encounter for counseling regarding contraception 08/04/2024 Pre-operative examination 07/03/2024 JOHNSON RESEARCH OTHER*[id number] 07/03/2024 Central obesity 06/15/2024 Super obese 06/12/2024 [...] as of this encounter (statuses as of 08/19/2024) Resolved Problems Problem Noted Date Diagnosed Date [...] as of this encounter (statuses as of 08/19/2024) Immunizations Name Administration Dates Next Due COVID-19 mRNA, LNP-s, No Pre serve, 2-Dose Series (Viralheat) 08/29/2021,10/03/2020,09/12/2020 Hepatitis B, 20+ yrs 04/27/2022,12/15/2021,11/10 MMR [...] 10:53 AM EST Patient was [place] [facility] [place] and is in need of a hospital discharge follow up appointment. She also does not have any future PCP appointments scheduled. Front office staff, please contact patient to schedule a hospital discharge appointment. Thanks, Stephanie Peñaloza RN, BSN [address] Engineer [phone] documented in this encounter Plan of Treatment Upcoming Encounters Date Type Department Care Team (Late st Contact Info) Description 08/20/2024 9:30 AM EST Office Visit General Surgery, [place] [address] [place] [address] Sarah Trejo MD [address] [place] [address] 08/20/2024 11:20 AM EST Office Visit Nutrition & Weight Management, [place] [address] [place] [address] Kaylynn Black PA-C [address] [place] [address] 08/25/2024 8:40 AM EST Nutrition Services Nutrition & Weight Management, [address] [place] [address] Anjana Saunders RDN [address] [place] [address] 09/01/2024 10:20 AM EST Telemedicine Nutrition & Weight Management, [place] [address] [place] [address] Dina Urbano CRNP [address] [place] [address] 09/01/2024 1:50 PM EST Telemedicine Nutrition & Weight Management, [facility] [address] [place] [address] Anjana Saunders RDN [address] [place] [place] [address] Health Maintenance Due Date Last Done Comments [...] Discussed due to patient's condition Care Teams Cone Picker Relationship Specialty Start Date End Date Cinthya Hatfield DO [address] [place] [address] PCP - General Family Medicine 01/29/24 documented as of this encounter
--- OUTSIDE RECORDS SUMMARY | 2024-09-17 06:11 | External Medical Summary ---
Author Name Unknown Address Unknown Organization K01:[facility] - [address] [place] [address] Laboratory Report Ordering Provider Test Date Status DERECK CALERO 08/10/2024 05:43:00 Final Observation Date Value Abnormality Reference (Units ) Status Magnesium 08/10/2024 05:43:00 1.9 1.5-2.6 (m g/dL) Final Performing Location [facility] - [address] [place] [address]
--- OUTSIDE RECORDS SUMMARY | 2024-09-17 06:11 | External Medical Summary ---
Author Name Unknown Address Unknown Organization K01:[facility] [place] [facility] [address] [address] [facility] [address] Laboratory Report Ordering Provider Test Date Status SUSAN TOVAR 08/11/2024 06:44:00 Final Observation Date Value Abnormality Reference (Units ) Status BUN 08/11/2024 06:44:00 4 Below low normal 6-20 (mg/dL) Final Creatinine 08/11/2024 06:44:00 0.6 0.5-1.0 (mg/dL) Final Glomerular filtration rate/1.73 sq M.predicted [Volume Rate/Area] in Serum, Plasma or Blood by Creatinine-based formula (CKD-EPI) 08/11/2024 06:44:00 >90 >=60 (mL/min) Final eGFR is calculated based on the CKD-EPI 2020 equation. Sodium 08/11/2024 06:44:00 139 135-146 (m mol/L) Final Potassium 08/11/2024 06:44:00 3.8 3.5-5.1 (m mol/L) Final Results may be falsely eleva lalo due to hemolysis. Cl 08/11/2024 06:44:00 105 98-107 (mm ol/L) Final CO2 08/11/2024 06:44:00 20 Below low normal 22- 32 (mmol/L) Final Anion gap 08/11/2024 06:44:00 14 7-15 (mmol /L) Final Glucose 08/11/2024 06:44:00 72 70-120 (mg /dL) Final Calcium 08/11/2024 06:44:00 8.7 8.4-10.2 ( mg/dL) Final Performing Location LAB[facility]ORY [facility] [place] [place] [address] [place] [address]
--- OUTSIDE RECORDS SUMMARY | 2024-09-17 06:11 | External Medical Summary | Summary of Care ---
Author Name Unknown Organization [facility] Address [address] [place] [address] Phone [phone] Care Team Providers Care Pcmh Specialist Name Role Phone Rosamary annCassiusa Jeremy OROZCO Primary Care Provider Encounter Details Date Type Department Care Team (Late st Contact Info) Description 08/20/2024 11:00 AM [facility] Telemedicine Nutrition and Weight Management, [place] [address] [place] [address] Enoc Nugent DO [address] [place] [address] Intestinal postoperative nonabsorption*; PCOS (polycystic ovarian syndrome); ROSANNE (generalized anxiety disorder); Hyperinsulinemia Allergies Active Allergy Reactions Criticality Noted Date [...] contraception 08/04/2024 Pre-operative examination 07/03/2024 JOHNSON RESEARCH OTHER*[id number] 07/03/2024 Central obesity 06/15/2024 Super obese 06/12/2024 [...] mRNA, LNP-s, No Pre serve, 2-Dose Series (Pieceable) 08/29/2021,10/03/2020,09/12/2020 Hepatitis B, 20+ yrs 04/27/2022,12/15/2021,11/10 MMR [...] documented in this encounter Progress Notes * Enoc Nugent DO - 08/20/2024 11:04 AM EST [facility] Post BPD-DS (Biliopancreatic Diversion with Duodenal Switch) ALVARO Patient location: HOME. I was in a hospital or clinic location. After connecting through [facility],patient was verified with two unique identifiers. Patient (or authorized legal shared services representative) was then informed that this was [...] Dr Gutierrez, not on any seizure medication . The patient is s/p laprascopic ALVARO by Dr. Trejo on August 04, 2024. - Weight at the initial clinic visit 410 lbs - Weight at the time of the surgery 394 lbs - Today's weight 345 lbs Wt Readings from Last 6 Encounters: 08/08/24 (!) 169.3 kg (373 lb 3.8 oz) 08/05/24 (!) 179 kg (394 lb 10 oz) 07/03/24 (!) 171 kg (376 lb 14.4 oz) 06/12/24 (!) 174.6 kg (385 lb) 05/01/24 (!) 174.2 kg (384 lb) 04/23/24 (!) 178.6 kg (393 lb 12.8 oz) - The patient is receiving dietary and physical activity instructions as part of their weight management treatment. Was readmitted for incisional issues?? Doing better Review of Systems: Constitutional: (-) fever chills sweats or weight loss ENT: (-) negative: no headaches, vertigo, hearing loss, sinus, ear, or throat problems Cardiovascular: (-) negative: no chest pain, dyspnea, syncope, or palpitations Pulmonary: (-) negative: no cough, wheezing, or shortness of breath Abdominal/GI: (-) negative: no pain, heartburn, dysphagia, bleeding, change in bowel habits, nauseaor vomiting Psychosocial adjustment: No, no Issues with body image, stress management, relationships, and addiction transfer Current recommended meal plan: Stage 2: Patient is getting ~60 grams of protein a day. Patient is getting ~40-50 ounces of fluid a day. Compliance with meal plan: yes Activity Level: Light activity Taking supplements as ordered for each of the following: NONE Review of patient's allergies indicates: Allergen Reactions [...] vitals taken for this visit. PHYSICAL EXAMINATION: Assessment/Plan: laprascopic BPD-DS (Biliopancreatic Diversion with Duodenal Switch) --ALVARO Doing very well overall. Will advance to Stage 2B. The patient will start MVI and Thiamine -- Has appt with RD later today Continue to increase physical activity. Annual labs [...] grains ROSANNE (generalized anxiety disorder) Reports stable- some days worse than others Hyperinsulinemia Migraines- On Topamax The patient agreed to try the plan as discussed and return in 2 weeks . They were encouraged to call or send a patient portal message in the meantime with any questions or concerns prior to their next visit. I spent a total of 17 minutes on the date of service in preparation, delivery, and documentation ofthe care provided to Dina Acosta excluding any time spent in the performance of separately billedservices. This included, but was not limited to, providing counseling about the benefits of weight loss, about their nutritional status, detailed explanations about calorie count, types of nutrients to choose,and composition of the meals. Motivational interview provided in order to prepare the patient to achieve future goals. --CDS Enoc Nugent DO, FACN, FACP Director, [facility] Video Editor, Department of Gastroenterology/Nutrition documented in this encounter Plan of Treatment Upcoming Encounters Date Type Department Care Team (Late st Contact Info) Description 08/20/2024 2:10 PM EST Telemedicine Nutrition & Weight Management, [facility] [address] [facility] [place] [address] Anjana Saunders RDN 132 [facility] [place] [address] 08/25/2024 1:00 PM EST Office Visit General Surgery, [place] [address] [place] [address] Sarah Trejo MD [address] [facility] [place] [address] 08/26/2024 9:40 AM EST Office Visit Nutrition & Weight Management, [place] [address] [place] [address] Prateek Ingram PA-C [address] [place] [address] 09/01/2024 10:20 AM EST Telemedicine Nutrition & Weight Management, [place] [address] [place] [address] Dina Urbano CRNP [address] [place] [address] 09/01/2024 1:50 PM EST Telemedicine Nutrition & Weight Management, [facility] 132 [facility] [address] Anjana Saunders RDN [address] [facility] [place] [address] 10/02/2024 8:00 AM EST Nutrition Services Nutrition & Weight Management, [facility] 132 [facility] [address] Anjana Saunders RDN [address] [facility] [place] [address] 10/02/2024 9:00 AM EST Office Visit Nutrition & Weight Management, [facility] [address] [facility] [address] Josie Dennison PA-C [address] [place] [address] 12/14/2024 3:20 PM EDT Telemedicine Nutrition & Weight Management, [place] [address] [place] [address] Debbie Wing CRNP [address] [facility] [place] [id number] Health Maintenance Due Date Last Done Comments Pneumococcal Vaccine: Pediatrics (0 to 5 Years) and At-Risk Patients (6 to 64 Years) (1 of 2 - PCV) 1996 COVID-19 Vaccine (2023- season) 2024 08/29/2021, 10/03/2020, 09/12/2020 Influenza Vaccine [...] nonabsorption- Primary Other and unspecified postsurgical nonabsorption PCOS (polycystic ovarian syndrome) Polycystic ovaries ROSANNE (generalized anxiety disorder) Generalized anxiety disorder Hyperinsulinemia Other specified hypoglycemia documented in this encounter Advance Directives * [...] Discussed due to patient's condition Care Teams Pcmh Specialist Relationship Specialty Start Date End Date Cinthya Hatfield DO [address] [place] [address] PCP - General Family Medicine 01/29/24 documented as of this encounter
--- OUTSIDE RECORDS SUMMARY | 2024-09-17 06:11 | External Medical Summary | Summary of Care ---
Author Name Unknown Organization [facility] Address [address] [place] [address] Phone [phone] Care Team Providers Care Shactor Name Role Phone EzequielCinthya rizo Jeremy OROZCO Primary Care Provider Reason for Visit * Reason Onset Date Comments Appointment 08/17/2024 Encounter Details Date Type Department Care Team (Late st Contact Info) Description 08/17/2024 Airframe And Powerplant Technician Telephone Care Coordination and Integration [address] [place] [address] Stephanie Peñaloza, SOL [address] [place] [address] Appointment Allergies Active Allergy Reactions Criticality Noted Date Comments Amoxicillin 11/23/2005 Diphenhydramine Other (Please comment) High 11/29/19 18 Cephalexin High 04/23/2019 Itchy, hives, throat closing, chest tightness. documented as of this encounter (statuses as of 08/17/2024) Medications Montelukast Sodium 10 MG Oral Tablet [...] as of this encounter (statuses as of 08/17/2024) Active Problems Problem Noted Date Diagnosed Date Intestinal postoperative nonabsorption 4 Obesity, morbid (more than 1 00 lbs over ideal weight or BMI > 40) 08/06/2024 S/P bariatric surgery 08/04/2024 Depression with anxiety 08/04/2024 Encounter for counseling regarding contraception 08/04/2024 Pre-operative examination 07/03/2024 JOHNSON RESEARCH OTHER*[id number] 07/03/2024 Central obesity 06/15/2024 Super obese 06/12/2024 [...] as of this encounter (statuses as of 08/17/2024) Resolved Problems Problem Noted Date Diagnosed Date [...] as of this encounter (statuses as of 08/17/2024) Immunizations Name Administration Dates Next Due COVID-19 mRNA, LNP-s, No Pre serve, 2-Dose Series (Simple Admit) 08/29/2021,10/03/2020,09/12/2020 Hepatitis B, 20+ yrs 04/27/2022,12/15/2021,11/10 MMR [...] 10:53 AM EST Patient was discharged from [facility] on 08/11/2024 and is in need of a hospital discharge follow up appointment. She also does not have any future PCP appointments scheduled. Front office staff, please contact patient to schedule a hospital discharge appointment. Thanks, Stephanie Peñaloza RN, BSN [facility] Airframe And Powerplant Technician [phone] documented in this encounter Plan of Treatment Upcoming Encounters Date Type Department Care Team (Late st Contact Info) Description 08/20/2024 9:30 AM EST Office Visit General Surgery, [place] [address] [place] [address] Sarah Trejo MD [address] [place] [address] 08/20/2024 11:20 AM EST Office Visit Nutrition & Weight Management, [place] [address] [place] [address] Kaylynn Black PA-C [address] [place] [address] 08/25/2024 8:40 AM EST Nutrition Services Nutrition & Weight Management, [facility] [address] [place] [address] Anjana Saunders RDN [address] [place] [address] 09/01/2024 10:20 AM EST Telemedicine Nutrition & Weight Management, [place] [address] [place], [place] [id number] Dina Urbano CRNP [address] [place] [address] 09/01/2024 1:50 PM EST Telemedicine Nutrition & Weight Management, [facility] [address] [place] [address] Anjana Saunders RDN [address] [place] [address] Health Maintenance Due Date Last Done Comments [...] Discussed due to patient's condition Care Teams Shactor Relationship Specialty Start Date End Date Cinthya Hatfield DO [address] [place] [address] PCP - General Family Medicine 01/29/24 documented as of this encounter
--- OUTSIDE RECORDS SUMMARY | 2024-09-17 06:12 | External Medical Summary ---
Author Name Unknown Address Unknown Organization : Laboratory Report Ordering Provider Test Date Status ADWOA TANG 08/05/2024 12:12:14 Final Observation Date Value Abnormality Reference (Units ) Status Glucose Point of Care 08/05/2024 12:12:14 94 70-120 (mg/dL) Final Performing Location
--- OUTSIDE RECORDS SUMMARY | 2024-09-17 06:12 | External Medical Summary | Summary of Care ---
Author Name Unknown Organization [facility] Address [address] [place] [address] Phone [phone] Care Team Providers Care Matrix Repairer Name Role Phone RosaCinthya reese Jeremy OROZCO Primary Care Provider Encounter Details Date Type Department Care Team (Latest Contact Info) Description 08/08/2024 12:45 PM EST - 08/08/2024 5:34 PM EST Hospital Encounter Radiology Film File [address] [place] [address] Arrived Discharge Disposition: Home - Self Care Allergies Active Allergy Reactions Criticality Noted Date Comments Amoxicillin 11/23/2005 Diphenhydramine Other (Please comment) High 11/29/19 18 Cephalexin High 04/23/2019 Itchy, hives, throat closing, chest tightness. documented as of this encounter (statuses as of 08/09/2024) Medications Montelukast Sodium 10 MG Oral Tablet [...] as of this encounter (statuses as of 08/09/2024) Active Problems Problem Noted Date Diagnosed Date Intestinal postoperative nonabsorption Obesity, morbid (more than 1 00 lbs over ideal weight or BMI > 40) 08/06/2024 S/P gastric bypass 08/04/2024 Depression with anxiety 08/04/2024 Encounter for counseling regarding contraception 08/04/2024 Pre-operative examination 07/03/2024 JOHNSON RESEARCH OTHER*[id number] 07/03/2024 Central obesity 06/15/2024 Super obese 06/12/2024 [...] as of this encounter (statuses as of 08/09/2024) Resolved Problems Problem Noted Date Diagnosed Date [...] as of this encounter (statuses as of 08/09/2024) Immunizations Name Administration Dates Next Due COVID-19 mRNA, LNP-s, No Pre serve, 2-Dose Series (QM Power) 08/29/2021,10/03/2020,09/12/2020 Hepatitis B, 20+ yrs 04/27/2022,12/15/2021,11/10 MMR [...] 9:30 AM EST Office Visit General Surgery, [place] [address] [place] [address] Sarah Trejo MD [address] [place] [address] 08/20/2024 11:20 AM EST Office Visit Nutrition & Weight Management, [place] [address] [place] [address] Kaylynn Black PA-C [address] [place] [address] 08/25/2024 8:40 AM EST Nutrition Services Nutrition & Weight Management, [facility] 132 [facility] [place] [address] Anjana Saunders RDN [address] [place] [address] 09/01/2024 10:20 AM EST Telemedicine Nutrition & Weight Management, [place] [address] [place] [address] Dina Urbano CRNP [address] [place] [address] 09/01/2024 1:50 PM EST Telemedicine Nutrition & Weight Management, [facility] 132 [facility] [place] [address] Anjana Saunders RDN [address] [facility] [place] [address] Health Maintenance Due Date Last Done Comments [...] CT (IMAGES ONLY, NO REPORT) Routine 08/08/2024 12:45 PM EST documented in this encounter Results * RADIOLOGY EXAM - CT (IMAGES ONLY, NO REPORT) (08/08/2024 12:45 PM EST) 08/08/2024 12:4 1 PM EST Narrative Scheduling, Silent - 08/08/2024 10:09 PM EST This is an imaging study not interpreted or resulted by a [facility] or [facility] contracted radiologist. us Elizabeth Brink MD RAD [...] Discussed due to patient's condition Care Teams Matrix Repairer Relationship Specialty Start Date End Date Cinthya Hatfield DO [address] [place] [address] PCP - General Family Medicine 01/29/24 documented as of this encounter
--- OUTSIDE RECORDS SUMMARY | 2024-09-17 06:12 | External Medical Summary ---
Author Name Unknown Address Unknown Organization K01:LABORATORY [place] [address] [place] [address] Laboratory Report Ordering Provider Test Date Status SUSAN TOVAR 08/08/2024 18:22:00 Final Observation Date Value Abnormality Reference (Units ) Status WBC, Total 08/08/2024 18:22:00 8.48 4.00-10.80 (K/uL) Final RBC 08/08/2024 18:22:00 5.19 3.85-5.15 (M/uL) Final Hemoglobin 08/08/2024 18:22:00 15.1 12.0-15.3 (g/dL) Final HCT 08/08/2024 18:22:00 45.1 36.0-45.2 (%) Final MCV 08/08/2024 18:22:00 86.9 81.5-97.5 (fL) Final MCH 08/08/2024 18:22:00 29.1 27.0-34.0 (pg) Final MCHC 08/08/2024 18:22:00 33.5 32.0-36.0 (g/dL) Final RDW 08/08/2024 18:22:00 13.8 11.5-15.5 (%) Final Platelets 08/08/2024 18:22:00 321 140-400 (K/uL) Final MPV 08/08/2024 18:22:00 11.8 6.6-11.1 (fL) Final Nucleated erythrocytes/100 leukocytes [Ratio] in Blood by Automated count 08/08/2024 18:22:00 0 <=0 (/100 WBCs) Final Performing Location LABORATORY [facility] - [facility] [place] [address] [address]
--- OUTSIDE RECORDS SUMMARY | 2024-09-17 06:12 | External Medical Summary ---
Author Name Unknown Address Unknown Organization : Laboratory Report Ordering Provider Test Date Status ADWOA TANG 08/04/2024 17:47:57 Final Observation Date Value Abnormality Reference (Units ) Status Glucose Point of Care 08/04/2024 17:47:57 155 Above high normal 70-120 (mg/dL) Final Performing Location
--- OUTSIDE RECORDS SUMMARY | 2024-09-17 06:12 | External Medical Summary ---
Author Name Unknown Address Unknown Organization K01:[facility] - [address] [place] [address] Laboratory Report Ordering Provider Test Date Status SUSAN TOVAR 08/08/2024 18:22:00 Final Observation Date Value Abnormality Reference (Units ) Status Magnesium 08/08/2024 18:22:00 1.9 1.5-2.6 (m g/dL) Final Performing Location [facility] - [address] [place] [address]
--- OUTSIDE RECORDS SUMMARY | 2024-09-17 06:12 | External Medical Summary ---
Author Name Unknown Address Unknown Organization K01:LABORATORY [facility] [place] - [facility] [address] [place] [address] Laboratory Report Ordering Provider Test Date Status SUSAN TOVAR 08/06/2024 08:21:00 Final Observation Date Value Abnormality Reference (Units ) Status WBC, Total 08/06/2024 08:21:00 9.38 4.00-10.80 (K/uL) Final RBC 08/06/2024 08:21:00 4.61 3.85-5.15 (M/uL) Final Hemoglobin 08/06/2024 08:21:00 13.6 12.0-15.3 (g/dL) Final HCT 08/06/2024 08:21:00 40.3 36.0-45.2 (%) Final MCV 08/06/2024 08:21:00 87.4 81.5-97.5 (fL) Final MCH 08/06/2024 08:21:00 29.5 27.0-34.0 (pg) Final MCHC 08/06/2024 08:21:00 33.7 32.0-36.0 (g/dL) Final RDW 08/06/2024 08:21:00 14.0 11.5-15.5 (%) Final Platelets 08/06/2024 08:21:00 261 140-400 (K/uL) Final MPV 08/06/2024 08:21:00 12.0 6.6-11.1 (fL) Final Nucleated erythrocytes/100 leukocytes [Ratio] in Blood by Automated count 08/06/2024 08:21:00 0 <=0 (/100 WBCs) Final Performing Location LABORATORY [facility] [place] - [facility] [place] [address]
--- OUTSIDE RECORDS SUMMARY | 2024-09-17 06:12 | External Medical Summary ---
Author Name Unknown Address Unknown Organization : Laboratory Report Ordering Provider Test Date Status ADWOA TANG 08/06/2024 05:50:59 Final Observation Date Value Abnormality Reference (Units ) Status Glucose Point of Care 08/06/2024 05:50:59 82 70-120 (mg/dL) Final Performing Location
--- OUTSIDE RECORDS SUMMARY | 2024-09-17 06:12 | External Medical Summary ---
Author Name Unknown Address Unknown Organization : Laboratory Report Ordering Provider Test Date Status ADWOA TANG 08/05/2024 05:45:30 Final Observation Date Value Abnormality Reference (Units ) Status Glucose Point of Care 08/05/2024 05:45:30 110 70-120 (mg/dL) Final Performing Location
--- OUTSIDE RECORDS SUMMARY | 2024-09-17 06:12 | External Medical Summary ---
Author Name Unknown Address Unknown Organization K01:LABORATORY [facility] - [address] [place] [address] Laboratory Report Ordering Provider Test Date Status GUYSUSAN 08/08/2024 18:22:00 Final Observation Date Value Abnormality Reference (Units ) Status Lactic Acid 08/08/2024 18:22:00 1.0 0.4-2.0 (mmol/L) Final Performing Location [facility] - [address] [place] [address]
--- OUTSIDE RECORDS SUMMARY | 2024-09-17 06:12 | External Medical Summary ---
Author Name Unknown Address Unknown Organization K01:LABORATORY [facility] [place] [facility]OD [facility] - [address] [place] [address] Laboratory Report Ordering Provider Test Date Status SUSAN TOVAR 08/08/2024 18:22:00 Final Observation Date Value Abnormality Reference (Units ) Status ABO 08/08/2024 18:22:00 O Final RH 08/08/2024 18:22:00 Positive Final Performing Location LABORATORY [facility] [place] B[facility] - [address] [place] [address]
--- OUTSIDE RECORDS SUMMARY | 2024-09-17 06:12 | External Medical Summary | Summary of Care ---
Author Name Unknown Organization [facility] Address [address] [place] [address] Phone [phone] Care Team Providers Care Gis Database Administrator Name Role Phone GuillaumeCinthya murillo Jeremy OROZCO Primary Care Provider Encounter Details Date Type Department Care Team (Late st Contact Info) Description 08/08/2024 Orders Only Unspecified Department Elizabeth Brink MD [address] [place] [address] Allergies Active Allergy Reactions Criticality Noted Date Comments Amoxicillin 11/23/2005 Diphenhydramine Other (Please comment) High 11/29/19 Cephalexin High 04/23/2019 Itchy, hives, throat closing, [...] contraception 08/04/2024 Pre-operative examination 07/03/2024 JOHNSON RESEARCH OTHER*[id number] 07/03/2024 Central obesity 06/15/2024 Super obese 06/12/2024 [...] mRNA, LNP-s, No Pre serve, 2-Dose Series (Wellkeeper) 08/29/2021,10/03/2020,09/12/2020 Hepatitis B, 20+ yrs 04/27/2022,12/15/2021,11/10 MMR [...] 9:30 AM EST Office Visit General Surgery, [place] [address] [place] [address] Sarah Trejo MD [address] [place] [address] 08/20/2024 11:20 AM EST Office Visit Nutrition & Weight Management, [place] [address] [place] [address] Kaylynn Black PA-C [address] [place] [address] 08/25/2024 8:40 AM EST Nutrition Services Nutrition & Weight Management, [facility] [address] Anjana Saunders RDN 132 [facility] [place] [address] 09/01/2024 10:20 AM EST Telemedicine Nutrition & Weight Management, [place] [address] [place] [address] Dina Urbano CRNP [address] [place] [address] 09/01/2024 1:50 PM EST Telemedicine Nutrition & Weight Management, [facility] 132 [facility] [place] [address] Anjana Saunders RDN [address] [facility] [place] [address] Health Maintenance Due Date Last Done Comments [...] study not interpreted or resulted by a [facility] or [facility] radiologist. Elizabeth Brink MD RAD CT Final Result [...] Discussed due to patient's condition Care Teams Gis Database Administrator Relationship Specialty Start Date End Date Cinthya Hatfield DO [address] [place] [address] PCP - General Family Medicine 01/29/24 documented as of this encounter
--- OUTSIDE RECORDS SUMMARY | 2024-09-17 06:12 | External Medical Summary ---
Author Name Unknown Address Unknown Organization : Laboratory Report Ordering Provider Test Date Status ADWOA TANG 08/04/2024 23:53:58 Final Observation Date Value Abnormality Reference (Units ) Status Glucose Point of Care 08/04/2024 23:53:58 118 70-120 (mg/dL) Final Performing Location
--- OUTSIDE RECORDS SUMMARY | 2024-09-17 06:12 | External Medical Summary ---
Author Name Unknown Address Unknown Organization K01:LAB[facility]ATORY [facility] [place] - [facility] [address] [place] [address] Laboratory Report Ordering Provider Test Date Status SUSAN TOVAR 08/09/2024 07:01:00 Final Observation Date Value Abnormality Reference (Units ) Status WBC, Total 08/09/2024 07:01:00 7.96 4.00-10.80 (K/uL) Final RBC 08/09/2024 07:01:00 4.42 3.85-5.15 (M/uL) Final Hemoglobin 08/09/2024 07:01:00 12.8 12.0-15.3 (g/dL) Final HCT 08/09/2024 07:01:00 38.3 36.0-45.2 (%) Final MCV 08/09/2024 07:01:00 86.7 81.5-97.5 (fL) Final MCH 08/09/2024 07:01:00 29.0 27.0-34.0 (pg) Final MCHC 08/09/2024 07:01:00 33.4 32.0-36.0 (g/dL) Final RDW 08/09/2024 07:01:00 14.0 11.5-15.5 (%) Final Platelets 08/09/2024 07:01:00 292 140-400 (K/uL) Final MPV 08/09/2024 07:01:00 11.9 6.6-11.1 (fL) Final Nucleated erythrocytes/100 leukocytes [Ratio] in Blood by Automated count 08/09/2024 07:01:00 0 <=0 (/100 WBCs) Final Performing Location LABORATORY [facility] - [address] [place] [address]
--- OUTSIDE RECORDS SUMMARY | 2024-09-17 06:12 | External Medical Summary ---
Author Name Unknown Address Unknown Organization K01:LABORATORY [facility] [place] - [address] [place] [address] Laboratory Report Ordering Provider Test Date Status SUSAN TOVAR 08/09/2024 07:02:00 Final Observation Date Value Abnormality Reference (Units ) Status BUN 08/09/2024 07:02:00 5 Below low normal 6-20 (mg/dL) Final Creatinine 08/09/2024 07:02:00 0.6 0.5-1.0 (mg/dL) Final Glomerular filtration rate/1.73 sq M.predicted [Volume Rate/Area] in Serum, Plasma or Blood by Creatinine-based formula (CKD-EPI) 08/09/2024 07:02:00 >90 >=60 (mL/min) Final eGFR is calculated based on the CKD-EPI 2020 equation. Sodium 08/09/2024 07:02:00 139 135-146 (m mol/L) Final Potassium 08/09/2024 07:02:00 3.8 3.5-5.1 (m mol/L) Final Cl 08/09/2024 07:02:00 107 98-107 (mm ol/L) Final CO2 08/09/2024 07:02:00 19 Below low normal 22- 32 (mmol/L) Final Anion gap 08/09/2024 07:02:00 13 7-15 (mmol /L) Final Glucose 08/09/2024 07:02:00 77 70-120 (mg /dL) Final Calcium 08/09/2024 07:02:00 8.4 8.4-10.2 ( mg/dL) Final Performing Location LABORATORY [facility] [place] - [facility] [address] [place] [address]
--- OUTSIDE RECORDS SUMMARY | 2024-09-17 06:12 | External Medical Summary ---
Author Name Unknown Address Unknown Organization K01:LABORATORY [facility] [place] - [facility] [address] [place] [address] Laboratory Report Ordering Provider Test Date Status SUSAN TOVAR 08/08/2024 18:22:00 Final Observation Date Value Abnormality Reference (Units ) Status BUN 08/08/2024 18:22:00 6 6-20 (mg/dL) Final Creatinine 08/08/2024 18:22:00 0.6 0.5-1.0 (mg/dL) Final Glomerular filtration rate/1.73 sq M.predicted [Volume Rate/Area] in Serum, Plasma or Blood by Creatinine-based formula (CKD-EPI) 08/08/2024 18:22:00 >90 >=60 (mL/min) Final eGFR is calculated based on the CKD-EPI 2020 equation. Sodium 08/08/2024 18:22:00 138 135-146 (m mol/L) Final Potassium 08/08/2024 18:22:00 4.3 3.5-5.1 (m mol/L) Final Cl 08/08/2024 18:22:00 107 98-107 (mm ol/L) Final CO2 08/08/2024 18:22:00 15 Below low normal 22- 32 (mmol/L) Final Anion gap 08/08/2024 18:22:00 16 Above high normal 7- 15 (mmol/L) Final Glucose 08/08/2024 18:22:00 104 70-120 (mg /dL) Final Calcium 08/08/2024 18:22:00 8.5 8.4-10.2 ( mg/dL) Final Performing Location LABORATORY [facility] [place] - [facility] [address] [place] [address]
--- OUTSIDE RECORDS SUMMARY | 2024-09-17 06:12 | External Medical Summary ---
Author Name Unknown Address Unknown Organization : Laboratory Report Ordering Provider Test Date Status SUSAN TOVAR 08/08/2024 18:22:00 Final Observation Date Value Abnormality Reference (Units ) Status Performing Location
--- OUTSIDE RECORDS SUMMARY | 2024-09-17 06:12 | External Medical Summary | Summary of Care ---
Author Name Unknown Organization [facility] Address [address] [place] [address] Phone [phone] Care Team Providers Care Inspector Fuel Hose Name Role Phone Cinthya Hatfield DO Primary Care Provider [phone] Reason for Visit * Reason Comments Status Check Encounter Details Date Type Department Care Team (Latest Contact Info) Description 08/07/2024 5:10 PM EST Anticoagulation Pharmacy, [place] [address] [place] [address] [facility] [address] [place] [address] Hyperinsulinemia*; PCOS (polycystic ovarian syndrome); Central obesity; Pre-operative examination; Class 3 severe obesity due to excess calories without serious comorbidity with body mass index (BMI) of 50.0 to 59.9 in adult (HCC) Allergies Active Allergy Reactions Criticality Noted Date Comments Amoxicillin 11/23/2005 Diphenhydramine Other (Please comment) High 11/29/19 18 Cephalexin High 04/23/2019 Itchy, hives, throat closing, chest tightness. documented as of this encounter (statuses as of 08/07/2024) Medications Montelukast Sodium 10 MG Oral Tablet [...] as of this encounter (statuses as of 08/07/2024) Active Problems Problem Noted Date Diagnosed Date Intestinal postoperative nonabsorption 4 Obesity, morbid (more than 1 00 lbs over ideal weight or BMI > 40) 08/06/2024 S/P gastric bypass 08/04/2024 Depression with anxiety 08/04/2024 Encounter for counseling regarding contraception 08/04/2024 Pre-operative examination 07/03/2024 [facility] OTHER*[id number] 07/03/2024 Central obesity 06/15/2024 Super obese 06/12/2024 Hyperinsulinemia 09/26/2023 Left-sided low back pain with left-sided sciatic a 09/26/2023 Migraine with aura and witho ut status migrainosus, not intractable 11/24/2022 ROSANNE (generalized anxiety disorder) 11/24/2022 PCOS (polycystic ovarian syndrome) 05/27/2012 Class 3 severe obesity due t o excess calories without serious comorbidity with body mass index (BMI) of 50.0 to 59.9 in adult 04/21/2012 documented as of this encounter (statuses as of 08/07/2024) Resolved Problems Problem Noted Date Diagnosed Date Resolved Date Class 3 severe obesity due t o excess calories without serious comorbidity with body mass index (BMI) of 60.0 to 69.9 in adult 07/03/2024 Migraine variant 05/18/2020 11/24/2022 Generalized abdominal pain 10/22/2017 0 11/24/2022 BMI 50.0-59.9, adult 10/22/2017 023 Overview [...] as of this encounter (statuses as of 08/07/2024) Immunizations Name Administration Dates Next Due COVID-19 [...] have concerns for your saf ety? No 08/04/2024 Do you have concerns for you r family's safety? (Household - for ages 0-17 years) Not on file 08/04/2024 Utilities Answer Date Recorded Do you have trouble paying y our heating, water, or electric bill? No 08/04/2024 Is your family able to pay t he heat, water, or electric bill? (Household - for ages 0-17 years) Not on file 08/04/2024 Does your family have access to good internet? (Household - for ages 0-17 years) Not on file 08/04/2024 Employment Status Answer Date Recorded Are you [...] 18 years and over) Not on file 08/04/2024 Does your family have a hard time getting a ride to doctors visits? (Household - for ages 0-17 years) Not on file 08/04/2024 Has lack of transportation k ept you from medical appointments, meetings, work, or from getting things needed for daily living? Check all that apply. No 08/04/2024 Do you (or your family) have trouble finding or paying for a ride (transportation)? (Household - for ages 0-17 years) Not on file 08/04/2024 Housing Stability Answer Date Recorded Do you currently live in a s helter or have no steady place to sleep at night? No 08/04/2024 Do you think you are at risk of becoming homeless? (Adult - for ages 18 years and over) Not on file 08/04/2024 Does your family worry about paying for your home or becoming homeless? (Household - for ages 0-17 years) Not on file 1 10/04/2023 Are you homeless or worried that you might be in the future? No 08/04/2024 Are you (or your family) alexi eless or worried that you might be in the future? (Household - for ages 0-17 years) Not on file Food Insecurity Answer Date Recorded Do you need food for this week? No 08/04/2024 Are you able to get enough f ood for your family? (Household - for ages 0-17 years) Not on file 08/04/2024 Does your family need food t his week? (Household - for ages 0-17 years) Not on file 08/04/2024 Do you always have enough fo od for your family? (Household - for ages 0-17 years) Not on file 08/04/2024 Comments No Sex and Gender Information Value Date Recorded Sex Assigned at Female 06/19/2019 1:31 PM EDT Legal Sex Female 7:09 AM EST Gender Identity Female 06/19/2019 1:31 PM EDT Sexual Orientation Straight 04/22/2019 1: 43 PM EDT documented as of this encounter Functional Status * Are you deaf or do you have serious difficulty hearing? Answer Date of Assessment Author No 08/04/2024 4:25 PM EST Penny Payne RN * Are you blind or do you have serious difficulty seeing, even when wearing glasses? Answer Date of Assessment Author No 08/04/2024 4:25 PM EST Penny Payne RN * Do you have serious difficulty walking or climbing stairs? (5 years old or older) Answer Date of Assessment Author No 08/04/2024 4:25 PM Penny Thapa RN * Do you have difficulty dressing or bathing? (5 years old or older) Answer Date of Assessment Author No 08/04/2024 4:25 PM Penny Thapa RN * Because of a physical, mental, or emotional condition, do you have difficulty doing errands alone such as visiting a doctors office or shopping? (15 years old or older) Answer Date of Assessment Author No 08/04/2024 4:25 PM EST Penny Payne RN documented as of this encounter Mental Status * Because of a physical, mental, or emotional condition, do you have serious difficulty concentrating, remembering, or making decisions? (5 years old or older) Answer Entry Date Author No 08/04/2024 4:25 PM EST Penny Payne RN documented in this encounter Progress Notes * Betsy Gonzalez RPh - 08/07/2024 10:16 AM EST Medication Therapy Disease Management - Anticoagulation Patient: Dina Acosta | : 1990 Subjective Contacts Contact Date/Time Type Contact Phone/Fax 08/07/2024 10:18 AM EST Phone (Outgoing) Dina Acosta (Self) [phone] (M) Left Message Patient discharged 08/06 after bariatric surgery. Patient-Reported Symptoms: No issues to report, did first injection this morning without incident. Objective Discharge paperwork provides instructions for last dose of lovenox to be 08/14. Lovenox dose: 60 mgQ12h. Assessment & Plan [facility] to sign off at this time. Patient has [facility] toll free number if there are any issues that arise. Thank you for allowing us to be involved in the care of this patient. Betsy Gonzalez [facility], PharmD Clinical Pharmacist Medication Therapy Disease Management 08/07/2024, 10:16 AM documented in this encounter Plan of Treatment Upcoming Encounters Date Type Department Care Team (Late st Contact Info) Description 08/20/2024 9:30 AM EST Office Visit General Surgery, [place] [address] [place] [address] Sarah Trejo MD [address] [place] [address] 08/20/2024 11:20 AM EST Office Visit Nutrition & Weight Management, [place] [address] [place] [address] Kaylynn Black PA-C [address] [place] [address] 08/25/2024 8:40 AM EST Nutrition Services Nutrition & Weight Management, [facility] [address] [address] Anjana Saunders RDN [address] [place] [address] 09/01/2024 10:20 AM EST Telemedicine Nutrition & Weight Management, [place] [address] [place] [address] Dina Urbano CRNP [address] [place] [address] 09/01/2024 1:50 PM EST Telemedicine Nutrition & Weight Management, [facility] [address] [place] [address] Anjana Saunders RDN [address] [place] [address] Health Maintenance Due Date Last Done Comments [...] as of this encounter Visit Diagnoses Diagnosis Hyperinsulinemia- Primary Other specified hypoglycemia PCOS (polycystic ovarian syndrome) Polycystic ovaries Central obesity Localized adiposity Pre-operative examination Preoperative examination, unspecified Class 3 severe obesity due to excess calories without serious comorbidity with body mass index (BMI) of 50.0 to 59.9 in adult (HCC) documented in this encounter Advance Directives * Full Code (Latest Code Status on File) Date Activated Date Inactivated Comments 08/04/2024 1:21 PM 08/06/2024 2:30 PM Question Answer Comments Discussion of Advance Direct dawn occurred with: Not Discussed due to patient's condition * Full Code Date Activated Date Inactivated Comments 08/04/2024 6:41 AM 08/04/2024 1:21 PM Question Answer Comments Discussion of Advance Direct dawn occurred with: Not Discussed due to patient's condition Care Teams Inspector Fuel Hose Relationship Specialty Start Date End Date Cinthya Hatfield DO [address] [place] [address] PCP - General Family Medicine 01/29/24 documented as of this encounter"
--- OUTSIDE RECORDS SUMMARY | 2024-09-17 06:12 | External Medical Summary ---
Author Name Unknown Address Unknown Organization K01:LABORATORY [place] [address] [place] [address] Laboratory Report Ordering Provider Test Date Status SUSAN TOVAR 08/05/2024 09:09:00 Final Observation Date Value Abnormality Reference (Units ) Status WBC, Total 08/05/2024 09:09:00 13.83 Above high normal 4.00-10.80 (K/uL) Final RBC 08/05/2024 09:09:00 5.01 3.85-5.15 (M/uL) Final Hemoglobin 08/05/2024 09:09:00 14.6 12.0-15.3 (g/dL) Final HCT 08/05/2024 09:09:00 43.5 36.0-45.2 (%) Final MCV 08/05/2024 09:09:00 86.8 81.5-97.5 (fL) Final MCH 08/05/2024 09:09:00 29.1 27.0-34.0 (pg) Final MCHC 08/05/2024 09:09:00 33.6 32.0-36.0 (g/dL) Final RDW 08/05/2024 09:09:00 13.9 11.5-15.5 (%) Final Platelets 08/05/2024 09:09:00 303 140-400 (K/uL) Final MPV 08/05/2024 09:09:00 12.1 6.6-11.1 (fL) Final Nucleated erythrocytes/100 leukocytes [Ratio] in Blood by Automated count 08/05/2024 09:09:00 0 <=0 (/100 WBCs) Final Performing Location LABORATORY [facility] [place] - [address] [place] [address]
--- OUTSIDE RECORDS SUMMARY | 2024-09-17 06:12 | External Medical Summary | Summary of Care ---
Author Name Unknown Organization [facility] Address [address] [place] [address] Phone [phone] Care Team Providers Care Hand I Thermal Cutter Name Role Phone RosaCinthya reese Jeremy OROZCO Primary Care Provider Reason for Visit * Reason Onset Date Comments Follow Up 08/07/2024 Encounter Details Date Type Department Care Team (Late st Contact Info) Description 08/07/2024 Telephone General Surgery, [place] [address] [place] [address] Vannessa Sandra RN [address] [place] [address] Follow Up Allergies Active Allergy Reactions Criticality Noted Date [...] (Tylenol) every 24 hours. 1 Tablet 08/05/20 Active Ondansetron 4 MG Oral Tablet Disintegrating [...] counseling regarding contraception 08/04/2024 Pre-operative examination 07/03/2024 [facility] [employer]EARCH OTHER*[id number] 07/03/2024 Central obesity 06/15/2024 Super obese 06/12/2024 [...] mRNA, LNP-s, No Pre serve, 2-Dose Series ([employer]) 08/29/2021,10/03/2020,09/12/2020 Hepatitis B, 20+ yrs 04/27/2022,12/15/2021,11/10 MMR [...] Penny Payne RN * Do you have difficulty dressing or bathing? (5 years old or older) Answer Date of Assessment Author No 08/04/2024 4:25 PM EST Penny Payne RN * Because of a physical, mental, or emotional condition, do you have difficulty doing errands alone such as visiting a doctors office or shopping? (15 years old or older) Answer Date of Assessment Author No 08/04/2024 4:25 PM Penny Thapa RN documented as of this encounter Mental Status * Because of a physical, mental, or emotional condition, do you have serious difficulty concentrating, remembering, or making decisions? (5 years old or older) Answer Entry Date Author No 08/04/2024 4:25 PM EST Penny Payne RN documented in this encounter Miscellaneous Notes * Telephone Encounter - Vannessa Sandra RN - 08/07/2024 1:45 PM EST Call completed. Vannessa Sandra RN * Telephone Encounter - Vannessa Sandra RN - 08/07/2024 1:08 PM EST [facility] call initiated. No answer, message left on voicemail asking for a return phone call. Vannessa Sandra RN documented in this encounter Plan of Treatment Upcoming Encounters Date Type Department Care Team (Latest Contact Info) Description 08/07/2024 5:10 PM EST Anticoagulation Pharmacy, [place] [address] [place] [address] [facility] [address] [place] [address] Hyperinsulinemia*; PCOS (polycystic ovarian syndrome); Central obesity; Pre-operative examination; Class 3 severe obesity due to excess calories without serious comorbidity with body mass index (BMI) of 50.0 to 59.9 in adult (HCC) 08/20/2024 9:30 AM EST Office Visit General Surgery, [place] [address] [place] [address] Sarah Trejo MD [address] [place], [place] [id number] 08/20/2024 11:20 AM EST Office Visit Nutrition & Weight Management, [place] [address], [place] [address] Kaylynn Black PA-C [address] [place], [place] [id number] 08/25/2024 8:40 AM EST Nutrition Services Nutrition & [facility] Management, [facility] [address] [facility] [address] Anjana Saunders RDN [address] [place] [address] 09/01/2024 10:20 AM EST Telemedicine Nutrition & Weight Management, [place] [address] [place] [address] Dina Urbano CRNP [address] [place] [address] 09/01/2024 1:50 PM EST Telemedicine Nutrition & Weight Management, [facility] [address] [facility] [place] [address] Anjana Saunders RDN [address] [place] [address] Health Maintenance Due Date Last Done Comments [...] Discussed due to patient's condition Care Teams Hand I Thermal Cutter Relationship Specialty Start Date End Date Cinthya Hatfield DO [address] [place] [address] PCP - General Family Medicine 01/29/24 documented as of this encounter
--- OUTSIDE RECORDS SUMMARY | 2024-09-17 06:12 | External Medical Summary ---
Author Name Unknown Address Unknown Organization K01:[facility]ORY [facility] - [address] [place] [address] Laboratory Report Ordering Provider Test Date Status SUSAN TOVAR 08/08/2024 18:22:00 Final Observation Date Value Abnormality Reference (Units ) Status ABO 08/08/2024 18:22:00 O Final RH 08/08/2024 18:22:00 Positive Final RED BLOOD CELL ANTIBODY SCREEN 08/08/2024 18:22:00 Negative Final SPECIMEN EXPIRATION DATE 08/08/2024 18:22:00 08/11/2024 23:59 Final Performing Location LAB[facility] - [address] [place] [address]
--- OUTSIDE RECORDS SUMMARY | 2024-09-17 06:12 | External Medical Summary | Summary of Care ---
Author Name Unknown Organization [facility] Address [address] [place] [address] Phone [phone] Care Team Providers Care Inorganic Chemistry Teacher Name Role Phone GuillaumeCinthya murillo Jeremy OROZCO Primary Care Provider [phone] Encounter Details Date Type Department Care Team (Late st Contact Info) Description 08/08/2024 Orders Only Unspecified Department Elizabeth Brink MD [address] [place] [address] Allergies Active Allergy Reactions Criticality Noted Date Comments Amoxicillin 11/23/2005 Diphenhydramine Other (Please comment) High 11/29/19 18 Cephalexin High 04/23/2019 Itchy, hives, throat closing, chest tightness. documented as of this encounter (statuses as of 08/08/2024) Medications Montelukast Sodium 10 MG Oral Tablet [...] as of this encounter (statuses as of 08/08/2024) Active Problems Problem Noted Date Diagnosed Date Intestinal postoperative nonabsorption Obesity, morbid (more than 1 00 lbs over ideal weight or BMI > 40) 08/06/2024 S/P gastric bypass 08/04/2024 Depression with anxiety 08/04/2024 Encounter for counseling regarding contraception 08/04/2024 Pre-operative examination 07/03/2024 [facility] RESEARCH OTHER*[id number] 07/03/2024 Central obesity 06/15/2024 Super obese 06/12/2024 [...] as of this encounter (statuses as of 08/08/2024) Resolved Problems Problem Noted Date Diagnosed Date [...] as of this encounter (statuses as of 08/08/2024) Immunizations Name Administration Dates Next Due COVID-19 mRNA, LNP-s, No Pre serve, 2-Dose Series ([employer]) 08/29/2021,10/03/2020,09/12/2020 Hepatitis B, 20+ yrs 04/27/2022,12/15/2021,11/10 MMR [...] Entry Date Author No 08/08/2024 5:35 PM EST Reinoehl, Destiny, RN documented in this encounter Plan of Treatment Upcoming Encounters Date Type Department Care Team (Late st Contact Info) Description 08/20/2024 9:30 AM EST Office Visit General Surgery, [place] [address] [place] [address] Sarah Trejo MD [address] [place] [address] 08/20/2024 11:20 AM EST Office Visit Nutrition & Weight Management, [place] [address] [place] [address] Kaylynn Black PA-C [address] [place] [address] 08/25/2024 8:40 AM EST Nutrition Services Nutrition & Weight Management, [facility] [address] [place] [address] Anjana Saunders RDN [address] [place] [address] 09/01/2024 10:20 AM EST Telemedicine Nutrition & Weight Management, [place] [address] [place] [address] Dina Urbano CRNP [address] [place] [address] 09/01/2024 1:50 PM EST Telemedicine Nutrition & Weight Management, [facility] [address] [facility] [address] Anjana Saunders RDN [address] [facility] [place] [address] Health Maintenance Due Date Last Done Comments [...] study not interpreted or resulted by a [facility] or [facility]. us Elizabeth Brink MD [...] Discussed due to patient's condition Care Teams Inorganic Chemistry Teacher Relationship Specialty Start Date End Date Cinthya Hatfield DO [address] [place] [address] PCP - General Family Medicine 01/29/24 documented as of this encounter
--- OUTSIDE RECORDS SUMMARY | 2024-09-17 06:12 | External Medical Summary ---
Author Name Unknown Address Unknown Organization K01:LABORATORY [facility] [place] - [address] [place] [address] Laboratory Report Ordering Provider Test Date Status SUSAN TOVAR 08/06/2024 08:21:00 Final Observation Date Value Abnormality Reference (Units ) Status BUN 08/06/2024 08:21:00 6 6-20 (mg/dL) Final Creatinine 08/06/2024 08:21:00 0.7 0.5-1.0 (mg/dL) Final Glomerular filtration rate/1.73 sq M.predicted [Volume Rate/Area] in Serum, Plasma or Blood by Creatinine-based formula (CKD-EPI) 08/06/2024 08:21:00 >90 >=60 (mL/min) Final eGFR is calculated based on the CKD-EPI 2020 equation. Sodium 08/06/2024 08:21:00 139 135-146 (m mol/L) Final Potassium 08/06/2024 08:21:00 3.6 3.5-5.1 (m mol/L) Final Cl 08/06/2024 08:21:00 106 98-107 (mm ol/L) Final CO2 08/06/2024 08:21:00 22 22-32 (mmo l/L) Final Anion gap 08/06/2024 08:21:00 11 7-15 (mmol /L) Final Glucose 08/06/2024 08:21:00 88 70-120 (mg /dL) Final Calcium 08/06/2024 08:21:00 8.4 8.4-10.2 ( mg/dL) Final Performing Location LABORATORY [facility] [place] - [address] [place] [address]
--- OUTSIDE RECORDS SUMMARY | 2024-09-17 06:12 | External Medical Summary ---
Author Name Unknown Address Unknown Organization : Laboratory Report Ordering Provider Test Date Status ADWOA TANG 08/05/2024 23:38:20 Final Observation Date Value Abnormality Reference (Units ) Status Glucose Point of Care 08/05/2024 23:38:20 87 70-120 (mg/dL) Final Performing Location
--- OUTSIDE RECORDS SUMMARY | 2024-09-17 06:12 | External Medical Summary ---
Author Name Unknown Address Unknown Organization K01:LABORATORY [facility] - [address] [place] [address] Laboratory Report Ordering Provider Test Date Status SUSAN TOVAR 08/08/2024 18:22:00 Final Observation Date Value Abnormality Reference (Units ) Status Phosphate 08/08/2024 18:22:00 3.4 2.5-4.8 (m g/dL) Final Performing Location LABORATORY [facility] - [address] [place] [address]
--- OUTSIDE RECORDS SUMMARY | 2024-09-17 06:12 | External Medical Summary ---
Author Name Unknown Address Unknown Organization K01:LABORATORY [facility] [place] - [address] [facility] [place] [address] Laboratory Report Ordering Provider Test Date Status SUSAN TOVAR 08/08/2024 18:22:00 Final Observation Date Value Abnormality Reference (Units ) Status SYNC LEUKOCYTES IN BLOOD BY AUTOMATED COUNT 08/08/2024 18:22:00 8.48 4.00-10.80 (K/uL) Final Segs 08/08/2024 18:22:00 90.3 Above high normal 40.0-75.0 (%) Final Lymphs % 08/08/2024 18:22:00 7.7 Below low normal 18.0-42.0 (%) Final Monos 08/08/2024 18:22:00 1.5 1.0-11.0 (%) Final Eosinophils 08/08/2024 18:22:00 0.1 0.0-6.0 (%) Final Basos 08/08/2024 18:22:00 0.2 0.0-2.0 (%) Final Immature Granulocyte, Percent 08/08/2024 18:22:00 0.2 0.0-2.0 (%) Final Absolute Segs 08/08/2024 18:22:00 7.65 1.80-7.70 (K/uL) Final Lymphs, absolute 08/08/2024 18:22:00 0.65 Below low normal 1.00-4.80 (K/ul) Final Monos, Abs 08/08/2024 18:22:00 0.13 0.00-1.10 (K/uL) Final Eos, Abs 08/08/2024 18:22:00 0.01 0.00-0.70 (K/uL) Final Basos, Abs 08/08/2024 18:22:00 0.02 0.00-0.20 (K/uL) Final Immature Granulocytes, Number 08/08/2024 18:22:00 0.02 0.00-0.20 (K/uL) Final Performing Location LABORATORY [facility] [place] - [address] [facility] [address]
--- OUTSIDE RECORDS SUMMARY | 2024-09-17 06:12 | External Medical Summary | Summary of Care ---
Author Name Unknown Organization [facility] Address [address] [place] [address] Phone [phone] Care Team Providers Care Tax Services Intern Name Role Phone Cinthya Hatfield DO Primary Care Provider Reason for Visit * Auth/Cert Specialty Diagnoses / Procedures Referred By Contac t Referred To Contact Diagnoses Class 3 severe obesity due to excess calories without serious comorbidity with body mass index (BMI) of 50.0 to 59.9 in adult (HCC) Super obese PCOS (polycystic ovarian syndrome) Hyperinsulinemia Central obesity Class 3 severe obesity due to excess calories without serious comorbidity with body mass index (BMI) of 50.0 to 59.9 in adult (HCC) [E66.813, Z68.43, E66.01] Super obese [E66.9] PCOS (polycystic ovarian syndrome) [E28.2] Hyperinsulinemia [E16.1] Central obesity [E65] Procedures GASTRIC RESTRICT/BYPASS,PYLORUS PRESERVING EGD, FLEXIBLE, DIAGNOSTIC WEDGE BIOPSY OF LIVER LAPAROSCOPE PROCEDURE, LIVER LAPAROSCOPIC GASTRIC RESTRICTIVE PROCEDURE PARTIAL GASTRECTOMY PYLORUS PRESERVING SINGLE ANASTOMOSIS ESOPHAGOGASTRODUODENOSCOPY (EGD), FLEXIBLE, TRANSORAL, DIAGNOSTIC UNLISTED LAPAROSCOPIC PROCEDURE LIVER Sarah Trejo MD [address] [place] [address] Phone: tel: fax: OR [facility], OPERATING ROOM [facility] [address] [place] [address] Phone: tel: Referral ID Status Reason Start Date Expiration Date Visits Re quested Visits Authorized [id number] Encounter Details Date Type Department Care Team (Latest Contact Info) Description 08/04/2024 6:16 AM EST - 08/06/2024 10:25 AM EST Hospital Encounter [id number] [address] [place] [address] Sarah Trejo MD [address] [place] [address] Discharge Disposition: Home - Self Care Allergies Active Allergy Reactions Criticality Noted Date Comments Amoxicillin 11/23/2005 Diphenhydramine Other (Please comment) High 11/29/19 18 Cephalexin High 04/23/2019 Itchy, hives, throat closing, chest tightness. documented as of this encounter (statuses as of 08/06/2024) Medications Montelukast Sodium 10 MG Oral Tablet (Singulair) Take 1 Tablet by mouth in the morning. 90 Tablet 3 024 Active Topiramate 25 MG Oral Tablet (Topamax) Take 1 Tablet by mouth in the morning and 1 Tablet at noon and 1 Tablet in the evening. 90 Tablet 2 024 Active Escitalopram Oxalate 10 MG Oral Tablet (Lexapro)Indicati ons:Adjustment disorder with anxious mood Take 1 Tablet by mouth in the morning. 30 Tablet 2 024 Active Enoxaparin Sodium 60 MG/0.6ML Injection Solution [...] for 10 days after procedure 12 mL 024 Active Acetaminophen 500 MG Oral Tablet (Tylenol) 2 caps every 8 hours for 3 days, then 1 cap every 4 hours as needed for pain. Do not exceed 3000mg acetaminophen (Tylenol) every 24 hours. 1 Tablet Active Ondansetron 4 MG Oral Tablet Disintegrating (Zofran) Place 1 Tablet on tongue every 8 hours as needed for Other (post op nausea/vomiting) . dissolve on tongue. 1 Tablet Active Omeprazole 20 MG Oral Capsule Delayed Release (PriLOSEC)Indicat ions:GERD Take 1 Capsule by mouth in the morning. For 90 days after surgery. 90 Capsule 2024 Active Simethicone 80 MG Oral Tablet Chewable (Mylicon) Chew and swallow 2 tablets by mouth every 8 hours as needed for gas or bloating. 30 Tablet 08/06/20 9:04 AM EST Active Methocarbamol 500 MG Oral Tablet (Robamol) Take 1 Tablet by mouth every 8 hours as needed for Muscle spasms. 10 Tablet 08/06/20 9:04 AM EST Active Norgestimate-Eth Estradiol 0.25-35 MG-MCG Oral Tablet (Sprintec 28)Indications:PC OS (polycystic ovarian syndrome) Take 1 Tablet by mouth in the morning. In the morning.. 84 Tablet 3 2023 Discontinued Ozempic (1 MG/DOSE) 4 MG/3ML Subcutaneous Solution Pen-injector (Semaglutide (1 MG/DOSE)) Inject 1 mg under the skin once a week. 3 mL 1 07/28/20 11:03 AM EST 2023 Discontinued documented as of this encounter (statuses as of 08/06/2024) Active Problems Problem Noted Date Diagnosed Date Intestinal postoperative nonabsorption Obesity, morbid (more than 1 00 lbs over ideal weight or BMI > 40) 08/06/2024 S/P gastric bypass 08/04/2024 Depression with anxiety 08/04/2024 Encounter for counseling regarding contraception 08/04/2024 Pre-operative examination 07/03/2024 [facility] OTHER*[id number] 07/03/2024 Central obesity 06/15/2024 Super obese 06/12/2024 [...] as of this encounter (statuses as of 08/06/2024) Resolved Problems Problem Noted Date Diagnosed Date [...] as of this encounter (statuses as of 08/06/2024) Immunizations Name Administration Dates Next Due COVID-19 mRNA, LNP-s, No Pre serve, 2-Dose Series ([place]) 08/29/2021,10/03/2020,09/12/2020 Hepatitis B, 20+ yrs 04/27/2022,12/15/2021,11/10 MMR [...] Sign Reading Time Taken Comments Blood Pressure 132/81 08/06/2024 10:17 AM EST Pulse 79 08/06/2024 10:17 AM EST Temperature 37.1 C (98.8 F) 08/06/2024 10:[address] Respiratory Rate 15 08/06/2024 10:17 AM EST Oxygen Saturation 100% 08/06/2024 10:17 AM EST Inhaled Oxygen Concentration - - Weight 179 kg (394 lb 10 oz) 08/05/2024 4:34 AM EST Height 180.3 cm (5' 11") 08/04/2024 4:25 PM EST Body Mass Index 55.04 08/04/2024 4:25 PM EST documented in this encounter Functional Status * Are you deaf or do you have serious difficulty hearing? Answer Date of Assessment Author No 08/04/2024 4:25 PM EST Chad Payne RN * Are you blind or do you have serious difficulty seeing, even when wearing glasses? Answer Date of Assessment Author No 08/04/2024 4:25 PM EST Chad Payne RN * Do you have serious difficulty walking or climbing stairs? (5 years old or older) Answer Date of Assessment Author No 08/04/2024 4:25 PM EST Chad Payne RN * Do you have difficulty dressing or bathing? (5 years old or older) Answer Date of Assessment Author No 08/04/2024 4:25 PM EST Chad Payne RN * Because of a physical, mental, or emotional condition, do you have difficulty doing errands alone such as visiting a doctors office or shopping? (15 years old or older) Answer Date of Assessment Author No 08/04/2024 4:25 PM EST Chad Payne RN documented as of this encounter Mental Status * Because of a physical, mental, or emotional condition, do you have serious difficulty concentrating, remembering, or making decisions? (5 years old or older) Answer Entry Date Author No 08/04/2024 4:25 PM EST Chad Payne RN documented in this encounter Discharge Instructions * Discharge Instr - AVS* Sherrell Roy CRNP - 08/03/2024 1:56 PM EST Discharge Date: 08/06/2024 - Postoperative Day #1 Discharge? No Check your Patient Education Brochure for further information. If you have any questions during regular business hours (weekdays 8:00 AM to 4:30 PM), please contact the Bariatric Nurse Coordinator, Vannessa Sandra RN at [phone]. If you are unable to reach the nurse coordinator, contact the surgical clinic at [phone]. During non-business hours (weekdays before 8:00 AM and after 4:30 PM and on weekends) call [phone] and ask to speak to the MIS/Bariatric Fellow road contractor. If the Fellow is unavailable, ask for thesurgical resident road contractor. If the surgical aides teacher is unavailable, ask for the attending MIS/Bariatric surgeon road contractor. If you are still unable to reach someone, ask the feed crusher operator to call Dr. Sarah Trejo. The [...] your inpatient care: You were admitted to [facility] on 08/04/24 forsurgery. You tolerated the operation well, had adequate pain control, and tolerated a diet before discharge. Your primary diagnosis at discharge was morbid obesity. Inpatient test results pending: None Operations & Procedures: Laparoscopic single anastomosis duodenal-ileal bypass with sleeve gastrectomy Complications: none Advance Directive Documented: Advance Directive Does the Patient have an Advance Directive? Not Addressed Diet: Please refer to diet as defined [...] Follow up with Dr. Trejo and GI nutrition on 08/20/24. D. You are being discharged with Lovenox for deep vein thrombosis prophylaxis. 1) Tell dentists, surgeons, and other healthcare providers that you use this drug. 2) You may bleed more easily. Avoid injury. Use soft toothbrush, electric razor. 3) Call General Surgery or your primary care physician right away if you have unusual bruising or bleeding 4) Start Lovenox tonight. Last dose of Lovenox [...] you WILL NOT need additional thiamine. F. No Nonsteroidal anti-inflammatory medicines. For example: ibuprofen, celebrex, [...] you have any issues, Please call Dr Trejo's office first before you go to the Emergency Department. Our physicians and nurses will guide you what you should do. L. Avoid 18 months after surgery. It is not recommended to use oral contraceptive after surgery. If you are using oral contraceptive, please use a second method. Acceptable contraceptive methods such as an IUD, condoms, control implants, or NuvaRing. Follow up with your WAN SUPPORT SPECIALIST providerfor further control management. Date you may return to work or school: To be determined at post-op clinic visit. See your primary care physician (Cinthya Hatfield DO) as needed. documented in this encounter Progress Notes * Heidi Avelar, DO - 08/06/2024 7:51 AM EST Progress Note - Bariatric Medicine [facility]-[address] [address] Name: Dina Acosta Location: [address] Date: 08/06/2024 Time: 7:51 AM REQUESTING SERVICE: Bariatric Surgery REASON FOR CONSULT: Requesting recommendations regarding morbid obesity, depression, and PCOS status post Single Anastomosis Duodenal-Ileal Bypass - Sleeve Gastrectomy (ALVARO-S) . HPI: Feeling well postop. Ambulating well. Working on increasing drinks - gets pain/discomfort in chest/epigastric area when drinks. Overall pain/gas pains have improved. Denies gerd. PHYSICAL EXAMINATION: Most Recent Vital Signs: BP: 147 mmHg/87 mmHg (08/06/24251) Pulse: 60 (08/06/24251) Resp: 16 (08/06/24251) Temp: 36.72 C (08/06/24251) Temp Summary: Temp Min: 36.7 C (98.1 F) Max: 37.3 C (99.2 F) SpO2: 98 % (08/06/24251) O2 flow rate: 0 L/MIN (08/05/241829) Supplemental O2 Delivery: Room Air, None (08/06/24251) Vital Signs Last 24 Hours: Systolic BP: Most Recent Systolic BP Av.4 mmHg Min: 144 mmHg Max: 161 mmHg Temperature: Most Recent Temperature Av C Min: 36.72 C Max: 37.33 C Pulse: Pulse Av Min: 60 Max: 65 Respirations: Resp Av.2 Min: 16 Max: 18 SpO2: SpO2 Av.8 % Min: 95 % Max: 99 % I/O: Intake/Output Summary (Last 24 hours) at 08/06/2024 0751 Last data filed at 08/06/2024 0527 Gross per 24 hour Intake 3797.14 ml Output 1000 ml Net 2797.14 ml Body mass index is 55.04 kg/m. General: NAD, NC/AT, sclera nonicteric, MMM. Heart: RRR, well perfused. Lungs: CTAB, Normal wob, no wheezing/rhonchi/rales. Abdomen: hypoactive bowel sounds, mild abd distension, no rebound or guarding. Extremities are without sig edema Psych is normal mood and affect. Neuro: AAOx3 Review of patient's allergies indicates: Allergen Reactions Diphenhydramine Other (Please comment) Keflex [Cephalexin] Itchy, hives, throat closing, chest tightness. Amoxicillin Labs PENDING THIS AM IMPRESSION AND RECOMMENDATIONS: Active Problems: Class 3 severe obesity due to excess calories without serious comorbidity with body mass index (BMI) of 50.0 to 59.9 in adult (HCC) (POA: Unknown) PCOS (polycystic ovarian syndrome) (POA: Unknown) Hyperinsulinemia (POA: Unknown) Central obesity (POA: Unknown) Super obese (POA: Unknown) POA = Present On Admission Status post ALVARO-S postoperative day # 2. - doing better this AM, VS okay other than mild sbp elevation Recommendations: Out of bed to chair or bedside dangle Ambulation in hallway as often as tolerated Incentive spirometer IV fluids - wean these Pain management as per protocol to limit use of narcotics DVT prophylaxis with subQ Lovenox unless contraindicated and SCD boots No NSAIDs on discharge Hold all vitamins now and on discharge Continue post-op PPI for ulcer prophylaxis now and on discharge Morbid Obesity: - continue to hold ozempic on d/c Depression with Anxiety - cont AIRCRAFT ENGINE SPECIALIST Escitalopram now and on d/c Migraine Headache - cont AIRCRAFT ENGINE SPECIALIST Topiramate now and at d/c #Contraception #PCOS - OCPs not effectively absorbed in the post-ALVARO anatomy - rec to avoid for 18 months postop - Pt confirmed she will set up an appointment with her WAN SUPPORT SPECIALIST for switching to implanted hormone device (per fellow discussion with pt this admission) The patient should be seen in 7-10 days post-op to match the Bariatric Team and Dr. Trejo. Will follow with you while patient admitted. Heidi Avelar DO Associate Physician Nutrition and Weight Management Department * Filiberto Wood MD - 08/05/2024 8:04 AM EST Progress Note - Bariatric Medicine [facility]-[address] [address] Name: Dina Acosta Location: [facility] B632/[id number] Date: 08/05/2024 Time: 8:04 AM REQUESTING SERVICE: Bariatric Surgery REASON FOR CONSULT: Requesting recommendations regarding morbid obesity, depression, and PCOS status post Single Anastomosis Duodenal-Ileal Bypass - Sleeve Gastrectomy (ALVARO-S) . HPI: Dina Acosta is a 34 year old female who is seen at the request of Bariatric Surgery for evaluation and recommendations postoperatively for the specific medical comorbidities mentioned above. The patient underwent a ALVARO-S with liver biopsy on 08/04/[address] Trejo. Operative notes were reviewed. No apparent complications. Did not need post-op insulin drip. Vital signs reviewed and arenormal. Pt was seen pre-op and her home medications and their indications were confirmed. Subjective: Pt was seen at bedside. She is in NAD, A&Ox3, and clinically stable. Pt states that she had a lot of abdominal discomfort overnight but is feeling somewhat better today. Although she is tolerating PO liquid intake, she feels intermittently nauseous, and has not been able to meet her fluid intake goals. D/C likely tomorrow. ALLERGIES: Diphenhydramine, Keflex [cephalexin], and Amoxicillin Prior [...] PHYSICAL EXAMINATION: Most Recent Vital Signs: BP: 145 mmHg/71 mmHg (08/05/24545) Pulse: 69 (08/05/24545) Resp: 16 (08/05/24545) Temp: 37.28 C (08/05/24545) Temp Summary: Temp Min: 36.1 C (97 F) Max: 37.3 C (99.1 F) SpO2: 97 % (08/05/24545) O2 flow rate: 3 L/MIN (08/04/24 1500) Supplemental O2 Delivery: Room Air, None (08/05/24545) Vital Signs Last 24 Hours: Systolic BP: Most Recent Systolic BP Av.2 mmHg Min: 131 mmHg Max: 149 mmHg Temperature: Most Recent Temperature Av.8 C Min: 36.11 C Max: 37.28 C Pulse: Pulse Av.4 Min: 68 Max: 95 Respirations: Resp Av.4 Min: 12 Max: 21 SpO2: SpO2 Av.3 % Min: 94 % Max: 100 % I/O: Intake/Output Summary (Last 24 hours) at 08/05/2024 0804 Last data filed at 08/05/2024 0600 Gross per 24 hour Intake 3494.19 ml Output 1200 ml Net 2294.19 ml Body mass index is 55.04 kg/m. Constitutional: no acute distress and (+) [...] Admission Status post ALVARO-S postoperative day # 1. Recommendations: Out of bed to chair or bedside dangle Ambulation in hallway as often as tolerated Incentive spirometer IV fluids Pain management as per protocol to limit use of narcotics DVT prophylaxis with subQ Lovenox unless contraindicated and SCD boots No NSAIDs on discharge Hold all vitamins now and on discharge Continue post-op PPI for ulcer prophylaxis now and on discharge #Morbid Obesity #Post-op Hyperglycemia - SSI 2:50 > 150 in-patient - Unlikely to need SSI on discharge as post-op hyperglycemia likely due to stress state - Discontinue Ozempic #Depression/Anxiety - Resume AIRCRAFT ENGINE SPECIALIST Escitalopram #Migraine Headache - Resume AIRCRAFT ENGINE SPECIALIST Topiramate #Contraception #PCOS - Pt advised to stop OCP as these are not effectively absorbed in the post-ALVARO anatomy - Pt confirmed she will set up an appointment with her WAN SUPPORT SPECIALIST for switching to implanted hormone device The patient should be seen in 7-10 days post-op to match the Bariatric Team and Dr. Trejo. Thank you for this consult. Filiberto Wood MD Fellow Nutrition and Weight Management Department The patient was discussed with Heidi Avelar DO. Cosigned by Heidi Avelar DO at 08/05/2024 2:43 PM EST Associated attestation - Heidi Avelar DO - 08/05/2024 2:43 PM EST Attending Attestation: I have discussed the patient's management with the medical trainee and agree with the note. Please refer to the documented findings and plan of care. The patient's bedside service today consisted of an evaluation. I was present and confirmed the findings of the history and exam. Heidi Avelar DO Associate Physician Nutrition and Weight Management Department documented in this encounter H&P Notes * Elizabeth Brink MD - 08/04/2024 6:51 AM EST Images from the original note were not included. [facility] CL[facility]IC VISIT AT [facility] DATE: 08/04/2024 Last Clinic 07/03/2024 Visit: 06/12/24 Dina Acosta [id number] 33 year old PCP: Cinthya Hatfield DO Consult requested by: Rachael Cortez RDN CC: Dina Acosta comes to see me in Bariatric Surgical Clinic for evaluation of morbid obesity. HPI: Patient presents today for their procedure. Feeling well. Denies fever, chills, abdominal pain, nausea, vomiting. Did the liquid diet for 2 weeks. Ready for surgery. HPI 07/03/2024: Patient presents for a pre-op H&P for surgery tentatively scheduled for 08/04/[address] Trejo. Patient denies new changes to mediations or medical hx since last visit otherthan ozempic dose being increased by GI nutrition. HPI 06/12/24: This patient has been successfully treated in the [facility] for the past 5 months and now presents for consideration of bariatric surgery. Modifying Factor: Are you exercising? YES walking; less than 30 min per day 2-3 times per week Associated Signs and Symptoms: The patient suffers from Constipation and Gas bloat. This patient denies any history of Heartburn, Regurgitation, Abdominal Pain , Chest Pain , Sore throat or mouth, chronic, Ear pain, Sinusitis, chronic, Diarrhea, Dysphagia, Nausea, Vomiting, and Hoarseness or Dry cough, Dyspnea at rest, Dyspnea with exertion, Hematemesis, Hemoptysis, Melena, Productive cough, Sputum, and Wheezing. DIAGNOSTIC TESTS: Results for orders placed or performed in visit on 04/02/24 CBC Result Value Ref Range WBC 6.74 4.00 - 10.80 K/uL RBC 5.21 3.85 - 5.15 M/uL HGB 14.9 12.0 - 15.3 g/dL HCT 43.1 36.0 - 45.2 % MCV 82.7 81.5 - 97.5 fL MCH 28.6 27.0 - 34.0 pg MCHC 34.6 32.0 - 36.0 g/dL RDW 14.0 11.5 - 15.5 % PLT 326 140 - 400 K/uL MPV 11.8 6.6 - 11.1 fL Results for orders placed or performed in visit on 06/19/12 CBC/DIFF Result Value Ref Range WBC 11.56 (H) 4.00 - 10.80 K/uL RBC 4.62 3.85 - 5.15 M/uL HGB 13.1 12.0 - 14.5 g/dL HCT 38.4 36.0 - 44.5 % MCV 83.1 81.5 - 97.5 fL MCH 28.4 27.0 - 34.0 pg MCHC 34.1 32.0 - 36.0 g/dL RDW 14.2 11.5 - 15.5 % PLT 345 140 - 400 K/uL MPV 11.1 6.6 - 11.1 fL Neutrophils % 57 40 - 75 % Lymphocytes % 33 18 - 42 % Monocytes % 8 1 - 11 % Eosinophils % 2 0 - 6 % Basophils % 0 0 - 2 % ABS. SEGS 6.59 1.8 - 7.7 K/uL Absolute Lymphocytes 3.81 1.0 - 4.8 K/uL Absolute Monocytes 0.92 0.0 - 1.1 K/uL Absolute Eosinophils 0.19 0.0 - 0.7 K/uL Absolute Basophils 0.02 0.0 - 0.2 K/uL Results for orders placed or performed in [...] orders placed or performed in visit on 11/13/21 BASIC METABOLIC PANEL Result Value Ref Range BUN 12 6 - 20 mg/dL CREATININE 0.7 0.5 - 1.0 mg/dL EGFR >90 >=60 mL/min SODIUM 140 135 - 146 mmol/L POTASSIUM 4.9 3.5 - 5.1 mmol/L CHLORIDE 106 98 - 107 mmol/L CO2 21 (L) 22 - 32 mmol/L ANION GAP 13 7 - 15 mmol/L GLUCOSE 119 70 - 120 mg/dL CALCIUM 9.4 8.4 - 10.2 mg/dL Results for orders placed or performed [...] <=159 mg/dL LDL Cholesterol 120 <=129 mg/dL Results for orders placed or performed in visit on 04/02/24 HEMOGLOBIN A1C Result Value Ref Range Hemoglobin A1C 5.0 4.0 - 5.6 % Estimated Average Glucose 97 <126 mg/dL HgBA1C greater than 8? No EKG 11/23/22 REASON FOR STUDY: pre-op, h/o seizure CONCLUSIONS: Normal sinus rhythm Normal ECG Ventricular Rate: 70 Atrial Rate: 70 HI Interval: 136 QRS Duration: 80 QT/QTc: 390/421 ms P-R-T [place]: 27 : 20 : 25 degrees US abdomen 04/10/24 HISTORY: pre bariatric surgery TECHNIQUE: Real-time scanning is performed right upper quadrant. Study compromised by bowel gas and body habitus. COMPARISON: Hepatobiliary scan dated 12/11/2017; abdomen three views dated 10/28/2017 FINDINGS: Gallbladder: Not abnormally distended. No demonstrable intrarenal calculus or intraluminal sludge allowing for presumed technical artifact. No current ultrasound evidence acute cholecystitis. There is no intrahepatic biliary dilatation. No extrahepatic biliary dilatation with common duct measuring approximally 5 mm. There is no gross choledocholithiasis. Liver: Size length: Right lobe approximate 19.6 cm; enlarged. Visualized parenchyma relatively homogeneous but diffusely increased in echotexture; a nonspecific finding but often can reflect fatty infiltration among other etiologies including chronic inflammation, cirrhosis etc.. Currently, however, visualized surface contour is smooth without nodularity. No discrete focal lesion. Ascites: None demonstrated right upper quadrant Pancreas: Unfortunately, pancreatic bed obscured by overlying bowel. Limited visualized portions ofparenchyma demonstrate no discrete focal lesion or pancreatic ductal dilatation. Right Kidney: Size length: 12.3 cm. No hydronephrosis or focal lesion. Cortex maintained in regard to thickness/echotexture. No demonstrable intrarenal calculus or perinephric abnormality. Right pleural effusion: None demonstrated. IMPRESSION IMPRESSION: Hepatomegaly and probable diffuse hepatic parenchymal fatty infiltration EGD 05/01/24 Findings & Specimens: The Z-line was found 40 cm from the incisors. The Z line was mildly irregular; there was a single tongue of columnar mucosa extending 0.5 - 1.0 cm above the GE junction. This was biopsied. Hill 1. There were stripes of erythema and linear erosions in the pre-pyloric antrum. The remainder of the stomach was normal. Random biopsies taken throughout the stomach. The duodenum was normal. The papilla was normal. A. Stomach, biopsy: -- Gastric mucosa with focal mild inactive chronic gastritis -- Negative for Helicobacter-like organisms by routine histology and immunohistochemistry. -- Negative for intestinal metaplasia. -- See comment. B. Gastroesophageal junction, biopsy: -- Chronically inflamed squamoglandular junctional mucosa. -- Negative for intestinal metaplasia. Current Medications Current Outpatient Medications Medication Sig Dispense Refill Norgestimate-Eth Estradiol 0.25-35 MG-MCG Oral Tablet (Sprintec 28) Take 1 Tablet by mouth in the morning. In the morning.. 84 Tablet 3 Topiramate 25 MG Oral Tablet (Topamax) Take 1 Tablet by mouth in the morning and 1 Tablet at noon and 1 Tablet in the evening. 90 Tablet 2 Escitalopram Oxalate 10 MG Oral Tablet (Lexapro) Take 1 Tablet by mouth in the morning. 30 Tablet 2 Ozempic (1 MG/DOSE) 4 MG/3ML Subcutaneous Solution Pen-injector (Semaglutide (1 MG/DOSE)) Inject 1 mg under the skin once a week. 3 mL 1 Montelukast Sodium 10 MG Oral Tablet (Singulair) Take 1 Tablet by mouth in the morning. 90 Tablet 3 No current facility-administered medications for this visit. Vitamins and Minerals: Vitamin D and Vitamin B12 po 1000 mcg Allergies as of 07/03/2024 - Reviewed 07/03/2024 Allergen Reaction Noted Diphenhydramine Other (Please comment) 11/28/2017 Keflex [cephalexin] 04/23/2019 Amoxicillin 11/23/2005 Past Medical History Past Medical History: Diagnosis Date Anxiety ROSANNE (generalized anxiety disorder) 11/24/2022 Gastritis Migraine headache Migraine with aura and without status migrainosus, not intractable 11/24/2022 PCOS (polycystic ovarian syndrome) 05/27/2012 Seizures (HCC) sees Dr Gutierrez, not on any seizure medication Past Surgical History Past Surgical History: Procedure Laterality Date EGD, FLEXIBLE, DIAGNOSTIC 10/14/2018 focal intestinal metaplasia, mild gastric irritation, repeat 1 yr/[facility] EGD, FLEXIBLE, DIAGNOSTIC 11/26/2019 mild gastric irritation, repeat 5 yrs / [facility] EGD, FLEXIBLE, DIAGNOSTIC N/A 05/01/2024 ESOPHAGOGASTRODUODENOSCOPY (EGD), FLEXIBLE, TRANSORAL, DIAGNOSTIC performed by Matthew Solomon MD at OR [facility] REMOVE FOOT TENDON LESION Left 07/28/2021 EXCISION LESION TENDON FOOT performed by Rowena Mckee DPM at OR [facility] REMOVE FOOT TENDON LESION Left 11/30/2022 EXCISION LESION TENDON FOOT performed by Rowena Mckee DPM at OR [facility] REMOVE TONSILS & ADENOIDS, AGE 12+ Bilateral 06/21/2015 TONSILLECTOMY AND ADENOIDECTOMY AGE 12 OR OVER performed by Remberto Pennington DO at OR [facility] Social History Socioeconomic History Marital status: Single Spouse name: Not on file Number of children: Not on file Years of education: Not on file Highest education level: Not on file Occupational History Not on file Tobacco Use Smoking status: Never Passive exposure: Current Smokeless tobacco: Never Vaping Use Vaping status: Never Used Substance and Sexual Activity Alcohol use: Never Drug use: No Sexual activity: Not Currently Partners: Male control/protection: Pill Other Topics Concern Not on file Social History Narrative Lives with grandparents. 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 Social Determinants of Health Financial Resource Strain: Low Risk (04/24/2024) Financial Resource Strain Do you have any trouble paying for your medications, or do you think you might in the future? (Adult - for ages 18 years and over): No Does your family have trouble paying for medicine? (Household - for ages 0-17 years): Not on file Food Insecurity: No Food Insecurity (04/24/2024) Food Insecurity Do you need food for this week? (Adult - for ages 18 years and over): No Are you able to get enough food for your family? (Household - for ages 0-17 years): Not on file Does your family need food this week? (Household - for ages 0-17 years): Not on file Do you always have enough food for your family? (Household - for ages 0-17 years): Not on file Transportation Needs: No Transportation Needs (04/24/2024) Transportation Needs Do you have trouble getting a ride to medical visits or work? (Adult - for ages 18 years and over):Not on file Does your family have a hard time getting a ride to doctors visits? (Household - for ages 0-17 years): Not on file Has lack of transportation kept you from medical appointments, meetings, work, or from getting things needed for daily living? Check all that apply. (Adult - for ages 18 years and over): No Do you (or your family) have trouble finding or paying for a ride (transportation)? (Household - for ages 0-17 years): Not on file Social Connections: Socially Integrated (04/24/2024) Social Connections How often do you feel lonely or isolated from those around you? (Adult - for ages 18 years and over): Rarely Housing Stability: Low Risk (04/24/2024) Housing Stability Do you currently live in a fpc or have no steady place to sleep at night? (Adult - for ages 18 years and over): No Do you think you are at risk of becoming homeless? (Adult - for ages 18 years and over): Not on file Does your family worry about paying for your home or becoming homeless? (Household - for ages 0-17 years): Not on file Are you homeless or worried that you might be in the future? (Adult - for ages 18 years and over): No Are you (or your family) homeless or worried that you might be in the future? (Household - for ages0-17 years): Not on file Family History Family History Problem Relation Name Age of Onset Diabetes Sister Diabetes Grandmother (Maternal) Diabetes Grandfather (Maternal) Heart Disorder Grandfather (Maternal) NH Family history non contributory Psychosocial Current smoker within 1 year? No History of tobacco use? No Using nicotine replacement? No Current ETOH Use? Yes, currently less than 2 drinks per month Substance Abuse None Functional health status? 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 REVIEW OF SYSTEMS: Endocrine Diabetes Mellitis? No Gout Hyperuricemia NO symptoms gout or hyperuricemia Other Endocrine abnormalities: None Pulmonary History of severe COPD? No Oxygen dependent? No History of Pulmonary Embolism? No Obstructive Sleep Apnea? No. But patient does snore. Obesity Hypoventilation with pulmonary hypertension? No Pulmonary Hypertension? No Asthma? NO Symptoms GI GERD requiring medication within 30 days prior to surgery? No Cholelithiasis NO History of RUQ pain, postprandial pain, nausea or vomiting. Liver Disease* NAFLD (Nonalcoholic Fatty Liver Disease) Musculoskeletal Is the patient's ambulation limited most or all of the time? No Back Pain No History Musculoskeletal Dz Pain with community activity Fibromyalgia NO History Cardiac Ischemic Heart Disease? No History of Myocardial Infarction? No Previous PCI/PTCA? No Previous Cardiac Surgery? No Hypertension requiring medication? No Hyperlipidemia requiring medication? No CHF? No Vascular Vein thrombosis requiring therapy? No Venous Stasis? No Does the patient have an IVC filter? No Coagulopathy? No PVD/Stroke*; No Renal Currently requiring or on dialysis? No Renal insufficiency (GFR less than 60)? No Other Steroid/Immunosuppression for chronic condition? No Therapeutic anticoagulation? No Previous Obesity/Foregut surgery? No Stress urinary incontinence? NO History Pseudotumor Cerebri Headache? H/O Migraine headaches Reproductive Polycystic Ovarian Syndrome OCP's or anti-androgen meds Menstrual Irregularities Irregular periods or oligomenorrhea All other ROS negative. PHYSICAL EXAM: Highest weight within one year: 420 lbs; Date: 12/25/23 07/03/2024: Blood pressure 133/84, pulse 69, temperature 36.3 C (97.3 F), temperature source Tympanic, height 1.778 m (5' 10"), weight (!) 171 kg (376 lb 14.4 oz), not currently ., Body mass index is 54.08 kg/m. General: Alert and appropriate. Well-appearing and in no distress Skin: Warm, dry, anicteric Lymphatics: No neither Supraclavicular nor Cervical nor Infraclavicular adenopathy. HEENT: PERRLA, EOMI, Sclera clear, anicteric, Oropharynx clear, no lesions, Neck supple with midline trachea, and Trachea midline Chest/Lungs: Clear Auscultation and No Wheezes Scar None Breast: Not examined Cardiovascular: Cor RRR and No murmurs Abdomen: Soft; Nontender; NO Distention; NO Organomegaly; NO Masses. Abdominal Wall Hernia NOT present Abdominal Skin/Pannus: No Sxs Scars include None Rectal/Genital: Not examined Neurologic: No motor abnormalities, No sensory abnormalities, and Cranial Nerves intact Musculoskeletal: Normal ROM and Normal strength and tone Extremities: Warm and well perfused, No cyanosis, No clubbing, and No edema IMPRESSION: 1) Body mass index is 54.08 kg/m. 2) Obesity related comorbid conditions include POLYCYSTIC OVARIAN DISEASE PLAN: 1) Checklist from most recent Bariatric Medical Clinic Visit Documented in GI Nutrition Documentation Flowsheet: Done, Normal 2) Schedule to following diagnostic tests ... Follow up visit in Bariatric surgical for preop H&P - completed today Preop EKG (current on file >1 yr old) - ordered today 3) Patient Education Material Did patient receive HELP card? Yes 4) We discussed the surgical treatment options for the management of obesity including gastric bypass,sleeve gastrectomy, single anastomosis duodeno-ileal bypass with sleeve gastrectomy (ALVARO-S) and biliopancreatic diversion with or without duodenal switch. We reviewed the benefits and limitations oflaparoscopy versus open incisions. We reviewed the [facility] calculator with respect to expected weight loss and BMI casino change attendant a year period postoperatively. We also reviewed the 30 day postoperativecomplications as predicted MBSAQIP risk calculator. All questions and concerns were addressed at this visit. She seems to understand and at this time would like to proceed with cony WASHBURN. I spent a total of 60 min on the date of service in preparation, delivery, and documentation of thecare provided to Dina Acosta excluding any time spent in the performance of separately billed services or time spent by another provider/QHP. This time was necessary to explain the complex nature of the problem and various treatment options available to me and the expected outcomes of each. Treatment options including indications and alternatives (open or laparoscopic, gastric bypass, sleeve gastrectomy and malabsorptive procedures) have been discussed with the patient and or insurance claim representative who seem to understand and agree to proceed with the following surgical procedure(s) which has/have been scheduled for 08/04/24 Laparoscopy, gastric restrictive procedure with single anastomosis duodenal- ileal bypass and sleevegastrectomy Upper GI endoscopy including esophagus, stomach and or duodenum and jejunum, diagnostic, without collection of specimen Laparoscopy procedure, liver; Wedge Biopsy In the case of multiple procedures, secondary procedures are contingent on the safe and effective performance of the primary bariatric procedure. This will be determined by Dr. Sarah Trejo based on intraoperative findings and the progress of the case. A diagram of the procedure has been reviewed and copy given to this patient. Anticipated benefits include weight loss up to greater than 50 percent of excess body weight and significant improvement in most medical comorbidities. This patient seems to understand that our goal is to ameliorate their medical problems and not a specific total weight loss. The importance of long-term follow up with our Bariatric Surgical Clinic and High-Risk Obesity Clinic has been emphasized. This includes following up with our service in [place] at [facility] for any and all post operative complications and/or problems. We have clearly emphasized that failure to follow up with our Bariatric program for questions, diagnostictests, treatment and admissions may result in more serious complications or . Patient has been counseled as to the importance of lifetime abstinence from tobacco use as well as supplementation with MVI including Iron, Calcium and Vitamin B12 injections as necessary. Single anastomosis duodenal-ileal bypass: The patient has been apprised of the relative advantages and disadvantages of Laparoscopic Bilio-pancreatic Diversion with Duodenal Switch relative to other weight loss operations and the following surgical and post-operative risks have been discussed with the patient or the patient's insurance claim representative. No promises or guarantees have been offered the patientregarding weight loss or improvement/resolution of their comorbid conditions. All questions have been answered at this time: The patient MUST commit to long-term follow-up to avoid potential complications. Development of or worsening of pre-existing GERD symptoms that may be refractory to medical management and requiring surgical revisions. Importance of avoidance of for the first year postoperatively if patient is of childbearing age. Failure to lose the amount of weight expected by the patient or physician (at least 50% of excess body weight). Weight regain. Nutritional deficiencies, acute or chronic causing either subtle or overt symptoms including various neurological symptoms. Malnutrition potentially requiring IV nutrition or nutrition via a feeding tube. The importance of nutritional supplementation with vitamins and minerals have been stressed to the patient along with potential medical complications related to their deficiencies. Changes in bowel function including diarrhea, constipation, or foul-smelling flatus. The patient has been made aware of a likely increase in the number of daily stools as a result of the operation. Food intolerances. Decreased appetite or difficulty taking normal amount of food. Dumping syndrome symptoms. Stricture of the sleeve or anastomosis requiring endoscopic or surgical correction. Dilation of the sleeve potentially requiring surgical correction. Marginal ulceration with potential complications requiring surgical intervention. including perforation, persistent bleeding, recalcitrance, or recurrence. Unexplained, persistent, potentially debilitating chronic nausea, vomiting, or abdominal pain possibly requiring half-way medications. Bleeding possible requiring transfusion of blood or blood products, possibly requiring reoperation. Injury to intra-abdominal structures (including but not limited to the spleen, liver, intestines, or blood vessels) due to trocar placement or surgical manipulation potentially requiring return to the operating room or open incision for repair or removal of injured organs or tissue. Leaks of sleeves or anastomosis Bile leaks or bleeding from liver biopsy sites if applicable. Infections of: wound, urine, bloodstream, or pneumonia. Need for an Open (traditional) incision. Life threatening cardiac, thromboembolic, neurologic, or respiratory complications including but not limited to stroke, heart attack, abnormal heart rhythms, blood clot in the veins or lungs (pulmonary embolism), prolonged ventilator dependency, up to and including . Preoperative PROVEN CARE Pathway Instructions and Plan: 1) Diet: Patient instructed to begin high protein liquid diet 14 days preop. Patient should drink a20-24 oz sports drink the evening before surgery. Drink only clears or high protein liquids for 24 hours before surgery. 2) Medications: Follow instruction from preadmission testing visit. 3) Following prescriptions will be given at preop visit. Omeprazole Zofran Tylenol 4) Juanito-operative multi-modal pain Control to include: Order APAP (Tylenol) 975mg PO once Gabapentin 300 mg PO once 5) Hold anticoagulants: N/A. 6) Hold all GERALDO Inhibitors and Angiotensin receptor blockers for 72 hours prior to surgery. NOT Applicable (patient on NO GERALDO Inhibitors or ARBS) 7) Hold all SGLT2 Inhibitors for 72 hours prior to surgery. NOT Applicable (patient on NO SGLT2 inhibitors). Hold GLP1 for 1 week prior to surgery (Ozempic) 8) PreOp EKG? Yes BMI >50 , ordered today 9) Preop Cardiology evaluation; Cardiology consult for 3 or more risk factors;Not Indicated 10) VTE Risk: Does the patient have any of the following contraindications to VTE Prophylaxis? No contraindications to VTE prophylaxis 11) DVT/PE Risk; The patient has each of the following risk factors: Surgery (anticipated equal to or greater than 2 hours), Obesity (BMI greater than 30), and Immobility (inability to ambulate 200 feet with or without assistance including LE paresis). How many VTE risk factors are present? 3 VTE Risk Factors (10 days extended VTE prophylaxis indicated) 12) If NO contraindications to VTE Prophylaxis then will plan on Enoxaparin dosed by pharmacy for 10 days post-op, Lovenox 30 mg prior to Surgery, and Knee High SCD's 13) Order Preop DVT Prophylaxis: Knee high teds, SCD Stockings with teds, and Enoxaparin 30 mg subcutaneously on arrival to hospital 14) Order Preop Antibiotics: Ancef 3 gm IV to be infused within one hour of incision time. 15) Is the patient on a Beta Osvaldo? No 16) Order Perioperative Stress Dose Steroids: N/A 17) Order Perioperative SBE prophylaxis (See Smart Set #[id number]): N/A 18) Pacemaker clinic evaluation perioperatively: N/A 19) Bring own CPAP/BiPAP mask and tubing from home if desired: N/A 20) Clip and prep surgical site: N/A 21) Preop orders placed in EPIC with H&P: YES 22) Pre-anesthesia orders placed: YES 23) Consent completed: YES; Date 06/12/24 24) Patient instruction sheet completed: YES 25) Postop Day #1 Discharge Candidate? Is the patient less than 60 years of age? YES Does the patient live within 90 minutes of the hospital? YES Is the patient committed to calling with any clinical problems and returning to [facility] if problems develop or they are advised by our staff? YES Patient has NO history of active cardiac problems or history of stent/CABG? YES Patient has NO history of renal insufficiency? YES Patient has NO active pulmonary problems and does NOT require home oxygen? YES Can the patient ambulate 200 feet without assistance? YES Patient has NO coagulopathy and is NOT on anticoagulants/antiplatelet medication? YES Patient has NO other medical problems or conditions that preclude consideration of Postop Day #1 Discharge? YES NO; Patient is NOT a Postop Day #1 Discharge Candidate at this time. Elizabeth Brink MD PGY-1 General Surgery Resident [facility] Cosigned by Sarah Terjo MD at 08/04/2024 7:05 AM EST * Elizabeth Brink MD - 08/04/2024 5:50 AM EST Images from the original note were not included. HISTORY & PHYSICAL INTERVAL NOTE - Bariatric Surgery [facility]-[address] [id number] History and Physical Update: Name: Dina Acosta Location: Room/bed info not found Date: 08/04/2024 Time: 6:51 AM DATE OF HISTORY AND PHYSICAL: 08/04/2024 BP: / Pulse: Resp: Temp: Temp Summary: No data recorded SpO2: O2 flow rate: Supplemental O2 Delivery: Physical Exam: Constitutional: no acute distress HEENT: normocephalic, atraumatic Eyes: sclera and conjunctiva normal CV: normal rate, normal rhythm Chest: normal respiratory effort, lungs clear to auscultation Abdomen: soft, nTTP, nondistended Extremities: no edema, warm and well perfused Skin: warm, dry, intact Neuro: alert, oriented to person, place, and time, normal mental status exam Did the patient stop their GERALDO-I and/or Angiotensin Retention Osvaldo at least 72 hours pre-op? NOT Applicable (patient on NO GERALDO Inhibitors or ARBS) Did the patient stop their SGLT2 Inhibitor at least 2 weeks pre-op? NOT applicable (patient on NO SGLT2 inhibitors) Did the patient stop the GLP-1 agonist at least one week preop? Yes, patient has stopped taking Semaglutide (Ozempic, Rybelsus, Wegovy) Does the patient take a Beta Osvaldo? no Did patient stop anticoagulants: None Has the patient been on high protein liquid diet for the last 2 weeks? Yes Did this patient require Tobacco abuse testing? No I have reviewed the H&P previously performed and examined the patient today. The following findings are new: pre-op EKG with NSR. Elizabeth Brink MD PGY-1 General Surgery Resident [facility] Cosigned by Sarah Trejo MD at 08/04/2024 7:05 AM EST Associated attestation - Sarah Trejo MD - 08/04/2024 7:05 AM EST I saw and evaluated the patient today. I have reviewed the resident physician note and agree. Sarah Trejo M.D. Minimally Invasive Foregut and Bariatric Surgeon [facility] Office documented in this encounter Consult Notes * Mounika Mauricio [facility] - 08/05/2024 7:27 AM ESTAssociated Order(s): PHARMACY CONSULT IP PHARMACY MEDICATION TEACHING CONSULT [facility]NOXAPAR[facility] [id number] Name: Dina Acosta Location: [facility] B632/A Date: 08/05/2024 Time: 7:27 AM Requesting Service: MIS Reason for Enoxaparin Consult: Venous Thromboembolism Prophylaxis (VTE) Patient Active Problem List Diagnosis Class 3 severe obesity due to excess calories without serious comorbidity with body mass index (BMI) of 50.0 to 59.9 in adult (HCC) PCOS (polycystic ovarian syndrome) Migraine with aura and without status migrainosus, not intractable ROSANNE (generalized anxiety disorder) Hyperinsulinemia Left-sided low back pain with left-sided sciatica Central obesity Pre-operative examination JOH[facility]ON RESEARCH OTHER*[id number] Super obese S/P gastric bypass Depression with anxiety Encounter for counseling regarding contraception Progress Notes by Betsy Gonzalez RPh at 07/03/24 1317 Author: Betsy Gonzalez RPh Author Type: Pharmacist Filed: 07/03/24 2698 Note Status: Addendum Cosign: Cosign Not Required Encounter Date: 07/03/2024 Zipper Trimmer: Betsy Gonzalez RPh (Pharmacist) Referral to follow patient for dvt prophylaxis following bariatric surgery on 08/[address] Trejo. Patient denies hx of venous thrombosis or stroke. Pertinent Labs and Vitals: Estimated body mass index is 54.08 kg/m as calculated from the following: Height as of an earlier encounter on 07/03/24: 1.778 m (5' 10"). Weight as of an earlier encounter on 07/03/24: 171 kg (376 lb 14.4 oz). Serum creatinine: 0.7 mg/dL 07/03/24 1050 Estimated creatinine clearance: 197.6 mL/min Hemoglobin Results: Lab Results Component Value Date/Time HGB 14.9 07/03/2024 10:50 AM HGB 14.9 04/02/2024 10:22 AM HGB 14.6 09/10/2018 12:00 AM HGB 14.8 11/27/2017 12:00 AM HGB 13.1 06/19/2012 02:53 PM HGB 14.2 04/18/2012 12:41 PM Platelets: Latest Reference Range & Units 07/03/24 10:50 PLT 140 - 400 K/uL 381 Plan for lovenox dosing based upon patient's BMI: BMI >/= 50 = Enoxaparin 60mg SubQ every 12 hours x 10 days post op Changes in weight or kidney function prior to, or during admission for procedure may lead to a change in Lovenox dose. Inpatient providers may adjust dose based on these changes and will educate patient before discharge. MyG message sent to patient to offer inperson appt for lovenox teach, and to find out what pharmacyto send the script to. Patient declined inperson lovenox teach and would like to use [facility] [employer] for the lovenox script. Patient is not currently taking an antiplatelet medication. I spent a total of 10-19 minutes (exact time 13 mins) on the date of service in preparation, delivery, and documentation of the care provided to Dina Acosta excluding any time spent in the performance of separately billed services or time spent by another provider/QHP. Betsy Gonzalez, PharmD, BCACP Clinical Pharmacist Medication Therapy Disease Management 07/03/2024, 1:21 PM * Filiberto Wood MD - 08/04/2024 2:49 PM ESTAssociated Order(s): BARIATRIC MEDICINE CONSULT IP; BARIATRIC MEDICINE CONSULT IP CONSULT - Bariatric Medicine [facility]-[address] [id number] Name: Dina Acosta Location: OR [facility]/OR Date: 08/04/2024 Time: 2:50 PM REQUESTING SERVICE: Bariatric Surgery REASON FOR CONSULT: Requesting recommendations regarding morbid obesity, depression, and PCOS status post Single Anastomosis Duodenal-Ileal Bypass - Sleeve Gastrectomy (ALVARO-S) . HPI: Dina Acosta is a 34 year old female who is seen at the request of Bariatric Surgery for evaluation and recommendations postoperatively for the specific medical comorbidities mentioned above. The patient underwent a ALVARO-S with liver biopsy on 08/04/[address] Trejo. Operative notes were reviewed. No apparent complications. Did not need post-op insulin drip. Vital signs reviewed and are normal. Pt was seen pre-op and home medications and their indications were confirmed. PAST MEDICAL HISTORY: Past Medical History: Diagnosis Date Anxiety ROSANNE (generalized anxiety disorder) 11/24/2022 Gastritis Migraine headache Migraine with aura and without status migrainosus, not intractable 11/24/2022 PCOS (polycystic ovarian syndrome) 05/27/2012 Seizures (HCC) sees Dr Gutierrez, not on any seizure medication PAST SURGICAL HISTORY: Past Surgical History: Procedure Laterality Date EGD, FLEXIBLE, DIAGNOSTIC 10/14/2018 focal intestinal metaplasia, mild gastric irritation, repeat 1 yr/[facility] EGD, FLEXIBLE, DIAGNOSTIC 11/26/2019 mild gastric irritation, repeat 5 yrs / [facility] EGD, FLEXIBLE, DIAGNOSTIC N/A 05/01/2024 stripes of erythema and linear erosions/biopsies normal/ESOPHAGOGASTRODUODENOSCOPY (EGD), FLEXIBLE,TRANSORAL, DIAGNOSTIC performed by Macy Solomon MD at OR [facility] REMOVE FOOT TENDON LESION Left 07/28/2021 EXCISION LESION TENDON FOOT performed by Rowena Mckee DPM at OR [facility] REMOVE FOOT TENDON LESION Left 11/30/2022 EXCISION LESION TENDON FOOT performed by Rowena Mckee DPM at [facility] [facility] REMOVE TONSILS & ADENOIDS, AGE 12+ Bilateral 06/21/2015 TONSILLECTOMY AND ADENOIDECTOMY AGE 12 OR OVER performed by Remberto Pennington DO at OR [facility] FAMILY HISTORY: Family History Problem Relation Name Age of Onset Diabetes Sister Diabetes Grandmother (Maternal) Diabetes Grandfather (Maternal) Heart Disorder Grandfather (Maternal) [place] SOCIAL HISTORY: Social History Tobacco Use Smoking status: Never Passive exposure: Current Smokeless tobacco: Never Vaping Use Vaping status: Never Used Substance Use Topics Alcohol use: Never Drug use: No ALLERGIES: Diphenhydramine, Keflex [cephalexin], and Amoxicillin Prior to admission medications reviewed in [facility]. ROS: Constitutional: (-) fever chills sweats or weight loss Eyes: (-) negative, no amaurosis fugax, pain, blurred vision, or redness ENT: (-) negative: no headaches, vertigo, hearing loss, sinus, ear, or throat problems Cardiovascular: (-) negative: no chest pain, dyspnea, syncope, or palpitations Pulmonary: (-) negative: no cough, wheezing, or shortness of breath Abdominal/GI: (+) abdominal pain Female : (-) negative: no dysuria, pelvic pain, irregular menses, or vaginal discharge Skin: (-) negative: no rash or new or changing moles Neurology: (-) negative: no focal neurologic defect Review of systems otherwise negative. PHYSICAL EXAMINATION: Most Recent Vital Signs: BP: 131 mmHg/75 mmHg (08/04/241429) Pulse: 77 (08/04/245) Resp: 18 (08/04/241414) Temp: 36.28 C (08/04/241429) Temp Summary: Temp Min: 36.1 C (97 F) Max: 36.4 C (97.5 F) SpO2: 95 % (08/04/241429) O2 flow rate: 3 L/MIN (08/04/241429) Supplemental O2 Delivery: Nasal Cannula (08/04/241429) Vital Signs Last 24 Hours: Systolic BP: Most Recent Systolic BP Av mmHg Min: 131 mmHg Max: 151 mmHg Temperature: Most Recent Temperature Av.3 C Min: 36.11 C Max: 36.39 C Pulse: Pulse Av.2 Min: 66 Max: 90 Respirations: Resp Av.6 Min: 15 Max: 21 SpO2: SpO2 Av % Min: 95 % Max: 100 % I/O: Intake/Output Summary (Last 24 hours) at 08/04/2024 1450 Last data filed at 08/04/2024 1257 Gross per 24 hour Intake 2300 ml Output 200 ml Net 2100 ml Body mass index is 50.46 kg/m. Constitutional: no acute distress and (+) [...] Admission Status post ALVARO-S postoperative day # 0. Recommendations: Out of bed to chair or bedside dangle Ambulation in hallway as often as tolerated Incentive spirometer IV fluids Pain management as per protocol to limit use of narcotics DVT prophylaxis with subQ Lovenox unless contraindicated and SCD boots No NSAIDs on discharge Hold all vitamins now and on discharge Continue post-op PPI for ulcer prophylaxis now and on discharge #Morbid Obesity #Post-op Hyperglycemia - SSI 2:50 > 150 in-patient - Unlikely to need SSI on discharge as post-op hyperglycemia likely due to stress state - Discontinue Ozempic #Depression/Anxiety - Resume AIRCRAFT ENGINE SPECIALIST Escitalopram #Migraine Headache - Resume AIRCRAFT ENGINE SPECIALIST Topiramate #Contraception #PCOS - Pt advised to stop OCP as these are not effectively absorbed in the post-ALVARO anatomy - Pt confirmed she will set up an appointment with her WAN SUPPORT SPECIALIST for switching to implanted hormone device The patient should be seen in 7-10 days post-op to match the Bariatric Team and Dr. Trejo. Thank you for this consult. Filiberto Wood MD Fellow Nutrition and Weight Management Department The patient was discussed with Heidi Avelar DO. Cosigned by Heidi Avelar DO at 08/04/2024 5:03 PM EST Associated attestation - Heidi Avelar DO - 08/04/2024 5:03 PM EST Attending Attestation: I have discussed the patient's management with the medical trainee and agree with the note. Please refer to the documented findings and plan of care. The patient's bedside service today consisted of an evaluation. I was present and confirmed the findings of the history and exam. Heidi Avelar DO Associate Physician Nutrition and Weight Management Department documented in this encounter Nursing Notes * Monse Quinones NA - 08/04/2024 4:23 PM EST Post Anesthesia Care Unit Transport Note [address] [address] Dept[address] Dina Acosta Transported from PeriOp to : [id number] Time: 1557 Care of patient transferred to: [facility] Transported via: Bed Belongings with Patient: YES Pulse : 72 Temp : 36.9 BP : 149/80 Respirations : 14 Pulse Ox : 96 O2 : RA SCDS: On but not activated/no machine * Chad Payne RN - 08/04/2024 4:00 PM EST Dual Licensed Skin Assessment completed by chad mac rn and suman garcia rn. The patient is/has a N/A Skin Breakdown (includes non blanchable erythema): No * Liliya Carr RN - 08/04/2024 1:51 PM EST Dual Licensed Skin Assessment completed by Liliya Cherry RN and Kaylynn Vega RN. The patient is/has a N/A Skin Breakdown (includes non blanchable erythema): Yes - Surgical/Procedural changes only. See flowsheet data- dermabond open to air incisions * Liliya Carr RN - 08/04/2024 1:44 PM EST PERIOP TO IP HANDOFF COMMUNICATION NOTE [address] [address] Name: Dina Acosta AGE: [age] year old Location: [place] [facility]/OR Date: 08/04/2024 Attention to: BP6 Report from: Liliya Carr RN Patient arriving via: Bed Time of call: Phone Ext: [phone] Reason for SBAR (Situation, Background, Assessment, Recommendation) handoff: OR Sending to: [facility] Emotional/Personal Events & Special Needs: n/a Prescriptions in chart: No Code Status: Full Code Safety Concerns: no safety concerns identified Allergies: Diphenhydramine, Keflex [cephalexin], and Amoxicillin PMH: Past Medical History: Diagnosis Date Anxiety ROSANNE (generalized anxiety disorder) 11/24/2022 Gastritis Migraine headache Migraine with aura and without status migrainosus, not intractable 11/24/2022 PCOS (polycystic ovarian syndrome) 05/27/2012 Seizures (HCC) sees Dr Gutierrez, not on any seizure medication PSH: Past Surgical History: Procedure Laterality Date EGD, FLEXIBLE, DIAGNOSTIC 10/14/2018 focal intestinal metaplasia, mild gastric irritation, repeat 1 yr/[facility] EGD, FLEXIBLE, DIAGNOSTIC 11/26/2019 mild gastric irritation, repeat 5 yrs / [facility] EGD, FLEXIBLE, DIAGNOSTIC N/A 05/01/2024 stripes of erythema and linear erosions/biopsies normal/ESOPHAGOGASTRODUODENOSCOPY (EGD), FLEXIBLE,TRANSORAL, DIAGNOSTIC performed by Macy Solomon MD at OR [facility] REMOVE FOOT TENDON LESION Left 07/28/2021 EXCISION LESION TENDON FOOT performed by Rowena Mckee DPM at [facility] REMOVE FOOT TENDON LESION Left 11/30/2022 EXCISION LESION TENDON FOOT performed by Rowena Mckee DPM at OR [facility] REMOVE TONSILS & ADENOIDS, AGE 12+ Bilateral 06/21/2015 TONSILLECTOMY AND ADENOIDECTOMY AGE 12 OR OVER performed by Remberto Pennington DO at OR [facility] Isolation: Isolation: Procedure: LAPAROSCOPIC GASTRIC RESTRICTIVE PROCEDURE PARTIAL GASTRECTOMY PYLORUS PRESERVING SINGLEANASTOMOSIS Type of Anesthesia: General endotracheal anesthesia Block: n/a IV intake: 2000 mL EBL: OR: 10 mL PACU: 0 mL Urine output: OR 200 mL PACU 0 mL IUBC (Renner): Incision location: abdominal Dressing location: dermabond-open to air; abdominal Time of last skin assessment: 1351 Pressure injuries or areas of concern: n/a Lines: Peripheral Line Right Wrist 20 Gauge (Active) Status Fluids infusing 08/04/241304 Tubing Changed N/A 08/04/241304 Phlebitis Scale 0 08/04/241304 Infiltration Scale 0 08/04/241304 Site Description (Other) Without redness, swelling or drainage 08/04/241304 Site Intervention None required 08/04/241304 Dressing Assessment Dressing clean, dry, and intact 08/04/241304 Dressing Intervention None required 08/04/241304 Number of days: 0 Vital Signs: BP: 142/70 (08/04/24 132) Temp: 36.1 C (97 F) (08/04/24 133) Pulse: 80 (08/04/241324) Resp: 17 (08/04/241324) SpO2: 99 % (08/04/241324) O2 flow rate: 3 L/MIN (08/04/241324) Glucose (Bedside): 165 (Walker anesthesia made aware; does not want coverage) (08/04/24 1310) Time of last pain medication: 1410 Med: dilaudid Time of last antibiotic: 0804 Med: clindamycin Time of last antiemetic: 1324 Med: compazine PICTURE ENLARGER: no Drips: no Neurological: Speech: Clear (08/04/241304) Level of Consciousness: Alert;Responds to pain;Responds to voice (08/04/241304) RUE Motor Strength: 5-Active movement with full resistance (08/04/24 07) RLE Motor Strength: 5-Active movement with full resistance (08/04/24 07) LUE Motor Strength: 5-Active movement with full resistance (08/04/24 07) LLE Motor Strength: 5-Active movement with full resistance (08/04/24 07) Right Pupil Size (mm): 4 (08/04/24 130) Left Pupil Size (mm): 4 (08/04/241304) Coma Score: 15 (08/04/241304) Respiratory: Respiratory WNL: X - Exceptions to WNL as documented below (08/04/241304) Oxygen therapy/ Mechanical vent Supplemental O2 Delivery: Nasal Cannula (08/04/241324) O2 flow rate: 3 L/MIN (11/19/24 1325) Cardiac: Cardiovascular WNL: WNL - within normal limits (08/04/24 1305) GI: GI WNL: WNL - within normal limits (08/04/24 1305) : WNL: X - Exceptions to WNL as documented below (no urine to assess at this time) (08/04/24 1305) Urine Description: Clear;Yellow (08/04/24 0836) Due to Void: 1900 Integumentary:Integumentary WNL: X - Exceptions to WNL as documented below (surgical changes) (08/04/24 130) Skin Description: Dry;Warm (08/04/24 1304) Family updated on transfer: no Additional Assessment Information: n/a * Kaylynn Perez RN - 08/04/2024 7:23 AM EST Dual Licensed Skin Assessment completed by Kaylynn Perez RN and Savannah Berkowitz RN . The patient is/has a N/A Skin Breakdown (includes non blanchable erythema): No * Augusta Malave NA - 08/04/2024 6:33 AM EST Patient or the Patients Legally Authorized Zoology Technical Officer has been advised that (1) the Patient meets criteria for testing and (2) the administration of anesthesia, radiation or other imaging agents may have a harmful impact to an unborn child. The Patient or Patients Representativewere offered the opportunity to ask questions as to necessity of such testing and potential outcomes. Consent for testing has been given. documented in this encounter OR Notes * OR Surgeon - Sarah Trejo MD - 08/04/2024 12:41 PM EST [facility] [address] [facility] [address] OPERATIVE REPORT Name: Dina Acosta Date: 08/04/2024 Time: 12:42 PM Location: [place] [facility] Service: Minimally Invasive Surgery Date of Operation: 08/04/2024 Pre-op Diagnosis: Morbid Obesity, Central Obesity, PCOS Post-op Diagnosis: Same Patient Active Problem List Diagnosis Class 3 severe obesity due to excess calories without serious comorbidity with body mass index (BMI) of 50.0 to 59.9 in adult (HCC) PCOS (polycystic ovarian syndrome) Migraine with aura and without status migrainosus, not intractable ROSANNE (generalized anxiety disorder) Hyperinsulinemia Left-sided low back pain with left-sided sciatica Central obesity Pre-operative examination JOHNSON RESEARCH OTHER*[id number] Super obese Operation: MODIFIER 22 APPLIES; significant central obesity requiring increased mental and physicaleffort. Laparoscopic single anastomosis duodenal-ileal bypass with sleeve gastrectomy Upper GI endoscopy including esophagus, stomach and or duodenum and jejunum, diagnostic, without collection of specimen Biopsy of liver, wedge Research Laparoscopy; omentum biopsy Laparoscopy; jejunal biopsy Laparoscopy; gastric biopsy Subcutaneous tissue biopsy Is this patient a [facility] patient? Yes Surgeon: Sarah Trejo MD Assistants: Elizabeth Brink MD Level: Avni Resident PGY 1-3 A qualified resident beveling and edging machine operator was not available. I understand that section 1842 (b)(7)(D) of the Social Security Act generally prohibits Medicare physician fee schedule payment for the services of [id number] in teaching hospitals when qualified residents are available to furnish such services. I certify that the services for which payme nt is claimed were medically necessary, and that no qualified resident was available to perform theservices. I further understand that these services are subject to post-payment review by the Medicare carrier. ASA: ASA Physical Status 3 - A patient with severe systemic disease Anesthesia:General endotracheal anesthesia Transversus Abdominus Plane Block by surgeon 60 ml of 0.25 % marcaine with Epi was diluted in 60 ml of injectable saline. 60 ml of this solution was injected on each side. The injection was in the transverses abdominus fascial plane laparoscopic guidance in the subcostal region and then continuing inferiorly along the anterior axillary line to the level of the umbilicus or lowest port. IVF: 2000 ml Crystalloid Urine output: 200 ml Estimated Blood Loss: 10 ml Operative Time: 259 minutes Findings: Liver with mild clinical fatty infiltration Gallbladder; Normal appearing. Significant visceral adiposity. Case Acuity: Elective Wound Class: Clean Contaminated Infection Present at the Time of Surgery: No Surgical Clean Closure Bundle Used: Wound Protector, Clean closure tray, and Change of gown and gloves Irrigation of the Fascia / Subcutaneous Space: Saline Irrigation of the Organ Space: Saline Open abdomen with wound VAC: N/A Specimen and Disposition: Frozen: NONE Permanent: Liver; Wedge biopsy left lobe @ 10 cm lateral to Falciform ligament taken with sharp dissection, JOHNSON Study Patient, and Stomach; Wedge gastroplasty including cardia and proximal fundus at greater curvature Drains: NONE Staplers: Sleeve Gastrectomy; Ethicon Blue x 60 mm, Ethicon Gold x 60 mm, and Ethicon Green x 60 mmand Duodeno-ileostomy; Ethicon White x 60 mm Intraop Adverse Events/COMPLICATIONS; NONE Indications and History: The patient is a 34 year old female with Morbid obesity, BMI:Body mass index is 50.46 kg/m, central obesity, and PCOS who presented for the above mentioned procedure. The risks, benefits, complications, treatment options expected outcomes and alternative treatments were discussed with the patient. The possibilities of inadequate weight loss, weight regain, nutritional deficiencies, chronic diarrhea or constipation, bleeding requiring transfusion or re-operation, anastomotic stricture, leak, marginal ulceration, intra- abdominal organ injury requiring re-operation, intestinal obstruction, infection (wounds, urine, bloodstream, pneumonias), internal hernia, incisional hernia, chronic abdominal pain, chronic nausea and/or vomiting, gastro-cutaneous or gastro-colic fistula, as well as life threatening complications including neurologic, thromboembolic, cardiac, and pulmonary up to and including . Additional risks and complications were discussed and documented at the clinic visit. The patient freely signed the consent. Description of Operation: The patient was seen in the Holding Room and the site of surgery properly noted/marked. The patientwas taken to Operating Room [facility] OR 08, identified as Dina Acosta and the procedure verified as ... MODIFIER 22 APPLIES; significant central obesity requiring increased mental and physical effort. Laparoscopic single anastomosis duodenal-ileal bypass with sleeve gastrectomy Upper GI endoscopy including esophagus, stomach and or duodenum and jejunum, diagnostic, without collection of specimen Biopsy of liver, wedge A Time Out was held and the above information confirmed. Time Out: Patient Identified: Yes Is the patient on Beta Osvaldo? No Antibiotics Clindamycin 900 mg IV Were the antibiotics administered within 60 minutes of incision time?Yes DVT Prophylaxis subQ Lovenox 30 mg Teds Knee High SCD Stocking Knee High Allergies confirmed Yes Position SUPINE Lateralization NONE Special Equipment Confirmed Yes Implant of foreign object: No Explant of foreign object: No Prep is dry: Yes Highest Intraoperative Blood glucose: Greater than 150 mg/dl-SQ intraoperative insulin coverage initiated The patient was placed in the supine position. After the induction of adequate endotracheal anesthesia, the abdomen was prepped and draped in the usual sterile fashion. Abdominal cavity access Laparoscopic: The skin was infiltrated with local anesthetic and an incision was made. Initial entry into the peritoneal cavity was made with Visual access port port in the Left Upper Quadrant and insufflated the abdomen to 15 mm of pressure. Under direct vision, we then placed additional ports. Right Subcostal Applied 15 mm Left Subcostal Applied 12 mm Right Flank Applied 5 mm Left Supraumbilical Applied 5 mm Single anastomosis duodenal-ileal bypass with sleeve gastrectomy Bougie Size (in mm): "40 Fr." Bougie Type: Barney Distance from the pyloris (in cm): 6 Is there staple line reinforcement: no Oversew: yes At this point, a wedge biopsy of the left lobe of the liver about 10 cm lateral to the falciform ligament was done sharply. Hemostasis was obtained with electrocautery. There was no evidence of biliary leak. We placed a liver retractor to elevate the left lobe of the liver. We began by identifying a point on the greater curvature in line with the axis of the upper portionof the lesser curvature. At this point the lesser sac was entered through the greater omentum and the greater curvature of the stomach was completely mobilized to the angle of His. Short gastric vessels were sealed and divided with the harmonic scalpel. Care was taken to make sure the posterior aspect of the stomach was completely mobilized as well. Beginning at the point approximately 6 cm to the pylorus in line with the upper portion of the lesser curvature of the stomach, the first TWO staple loads were applied perpendicularly to the wall of the stomach along the incisura using a Ethicon Green x 60 mm linear cutter. At this point a "40 Fr."was placed along the lesser curvature of the stomach. The longitudinal staple line was created alongside the bougie using the Ethicon Blue x 60 mm and Ethicon Gold x 60 mm linear cutter, taking care to stay on the stomach and away from the esophageal wall as the angle of His was approached. The staple line was over sewn. The resected stomach was removed from the abdomen with wound protector. About 2cm distal to the pylorus, a window was created posterior to the duodenum. The duodenum was divided with Ethicon White x 60 mm linear cutter. The long alimentary limb was passed in a 1-antecolic fashion and an anastomosis was fashioned between the duodenum and the alimentary limb in a Handsewn fashion; 2 layers with 2-0 stratafix. This created a stoma about 3 cm in diameter. We turned our attention to the mesenteric defect. The biliopancreatic limb was retracted, and the defect was closed including the space of Valenzuela with the BP limb going toward the patient's left. We then performed an endoscopy with a "provacative leak test." The gastroscope was passed through the anastomosis and insufflation was accomplished with irrigation. There was no evidence of any leaks, and the anastomosis was widely patent and hemostatic. There were no obvious esophageal or gastric mucosal abnormalities. The gastroscope was then removed. The Z-line was at 35 cm from the lips, the incisura was at 43 cm from the lips and the anastomosis was at 53 from the lips. Abdominal Closure The liver retractor was removed under direct vision. The liver and abdominal cavity abdomen were inspected for bleeding or injuries and none were identified. The fascial defect of the extraction portsite and 12 mm port were closed with 0 Vicryl suture. All ports were removed under direct vision. The insufflation was relieved. The subcutaneous tissue were copiously irrigated, local anesthetic was infiltrated, and the skin was closed with monocryl subcuticular suture at all sites . Wounds were dressed. All initial and final counts were correct. The patient tolerated the procedure well and taken to the Recovery Room in STABLE condition. Attestation:I performed the procedure cc: Professional Reimbursement and Compliance documented in this encounter Miscellaneous Notes * Ancillary Progress Note - Dirk Bahena RN - 08/06/2024 9:00 AM EST CARE MANAGEMENT - ADULT DISCHARGE NOTE [address] [address] Name: Dina Acosta Location: [facility] B632/A Date: 08/06/2024 Time: 9:00 AM The following coordination of care and discharge plan has been coordinated with the care team, patient, family and/or caregiver according to the patients needs and preferences. Discharge Discharge Second Notice Important Message from Medicare delivered: Not Applicable (08/05/24799) Was Caregiver/Family/Facility contacted regarding discharge: Yes (08/05/24799) Discharge Transportation: Family/Friends drive (08/05/24799) Final Discharge Plan (Complete only at time of Discharge): Home - Self Care (08/05/24799) Narrative: Patient to be discharged to home with no needs identified at this time. Family will provide transportation. Discharge destination time-out called during BOOST rounds, all parties agreeablewith transition plan of care. * Progress Notes - Non-Billable - Sherrell Roy CRNP - 08/06/2024 8:03 AM EST PROGRESS NOTE - General Surgery Discharge Transition [address] [address] Name: Dina Acosta Location: [facility] B632/A Date: 08/06/2024 Time: 8:04 AM Admitting Diagnosis: morbid obesity PROCEDURE: 08/04/24 lap single anastomosis duodenal-ileal bypass with sleeve gastrectomy Estimated Discharge Date: 08/06/24 Subjective: Pt was resting in bed comfortably. Tolerating clears better today, drank 2 cups of broth and 20 oz of powerade yesterday, denied nausea/vomiting. Incisional pain controlled. Ambulating. Voiding without difficulty.agreed to use [facility] . Review of Systems: Constitutional: (-) fever chills sweats or weight loss Abdominal/GI: (-) negative: no pain, heartburn, dysphagia, bleeding, change in bowel habits, nauseaor vomiting Most Recent Vital Signs: BP: 147 mmHg/87 mmHg (08/06/24251) Pulse: 60 (08/06/24251) Resp: 16 (08/06/24251) Temp: 36.72 C (08/06/24251) Temp Summary: Temp Min: 36.7 C (98.1 F) Max: 37.3 C (99.2 F) SpO2: 98 % (08/06/24251) O2 flow rate: 0 L/MIN (08/05/241829) Supplemental O2 Delivery: Room Air, None (08/06/24251) Constitutional: no acute distress Abdomen: soft, no tenderness, nondistended Surgical site: incision CDI with dermabond Lab and Radiology: Pending results: No results pending Discharge Preparation: Consultation: No pending consultations to be completed Discharge Medication Plans: Pain Management: tylenol, robaxin DVT Needs: lovenox GI: Zofran and prilosec Antibiotics: None Stool Softener: None Anticipated Diet at Discharge: Bariatric Disposition / Needs Post Discharge: Home Return Appointments Planned: Dr Trejo and GI nutrition on 08/20/24. Spoke to Dr Trejo, ok to dc now, pt's jacqueline is coming to pick her up at 10am due to it's goingto snow in her area around noon. Reviewed d/c instructions with patient and answered questions patient had. Patient showed understanding and agreed to call if there is any concern. JUNO Mondragon 08/06/2024 8:04 AM * Progress Notes - Non-Billable - Sherrell Roy CRNP - 08/05/2024 8:56 AM EST PROGRESS NOTE - General Surgery Discharge Transition [facility] [address] Name: Dina Acosta Location: [facility] B632/A Date: 08/05/2024 Time: 8:56 AM Admitting Diagnosis: morbid obesity PROCEDURE: 08/04/24 lap single anastomosis duodenal-ileal bypass with sleeve gastrectomy Estimated Discharge Date: 08/06/24 Subjective: Pt was resting in chair comfortably. Drinking broth now, has a bottle of 28 oz of waterat bedside table, felt nauseated when taking simethicone, denied vomiting. Incisional pain controlled. Ambulating. Voiding without difficulty. No flatus. Has tylenol ,zofran, prilosec and lovenox filled at home. Grandmother will assist at home. Review of Systems: Constitutional: (-) fever chills sweats or weight loss Abdominal/GI: (-) negative: no pain, heartburn, dysphagia, bleeding, change in bowel habits, nauseaor vomiting Most Recent Vital Signs: BP: 145 mmHg/71 mmHg (08/05/24545) Pulse: 69 (08/05/24545) Resp: 16 (08/05/24545) Temp: 37.28 C (08/05/24545) Temp Summary: Temp Min: 36.1 C (97 F) Max: 37.3 C (99.1 F) SpO2: 97 % (08/05/24545) O2 flow rate: 3 L/MIN (08/04/24 1500) Supplemental O2 Delivery: Room Air, None (08/05/24545) Constitutional: no acute distress Abdomen: soft, no tenderness, nondistended Surgical site: incision CDI with dermabond Lab and Radiology: Pending results: Pending Lab: CBC, BMP Discharge Preparation: Consultation: No pending consultations to be completed Discharge Medication Plans: Pain Management: tylenol DVT Needs: lovenox GI: Zofran and prilosec Antibiotics: None Stool Softener: None Anticipated Diet at Discharge: Bariatric Disposition / Needs Post Discharge: Home Return Appointments Planned: Dr Trejo and GI nutrition on 08/20/24. Will follow up for discharge planning. JUNO Mondragon 08/05/2024 8:58am Pt only had some broth and 1/4 bottle of the powerade . States her nausea comes and goes. Will follow up for discharge planning. JUNO Mondragon 08/05/2024 2:05pm * Ancillary Progress Note - Dirk Bahena RN - 08/05/2024 8:02 AM EST CARE MANAGEMENT - ADULT INITIAL SCREENING [address] [address] Name: Dina Acosta Location: [facility] B632/A Date: 08/05/2024 Time: 8:02 AM Discussed patient with the interdisciplinary care team. This Publishing Editor performed a chart review to complete admission screen and assessed needs for transition planning. The day care attendant role and services were explained and emotional support was provided. Chief Complaint: No chief complaint on file. Prior Living Arrangements What was your living situation prior to admission/observation?: Other (Comment) (grandparent) (08/04/241624) Do you have serious difficulty walking or climbing stairs? (5 years old or older): No (08/04/241624) History of falling: No (08/05/24799) Prior Level of Functioning Describe the patient's ability prior to admission/observation to perform ADLs: Performs independently (08/04/241624) Describe the patient's mobility status prior to admission: Patient ambulates independently (08/04/241624) Patient uses assistive device: No (08/04/241624) Caregiver Information Emergency Contacts None on File Other Contacts Name Relation Home Work Mobile Em Acosta Grandparent [phone] Lives with grandparent and was independent with ADL's. Denies rehab/SNF stays or home health in [facility] and used no DME for ambulation prior to admission. CM will continue to follow should dischargeneeds arise. Risk Stratification/Psychosocial/Care Gaps Risk Stratification Psycho Social / Medical Concerns Identified: None Identified (08/05/24799) [facility] patients to [facility] care resources: No (08/05/24799) OBRA or OPTIONS needed for placement: No (08/05/24799) Readmission Risk Score: 8.69 (08/05/24 0400) AM-PAC Score With Stairs : 18 (08/05/24 06) Prior to Admission Services Services Prior to Admission AIRCRAFT ENGINE SPECIALIST Services (Services received within the last 30 days with exception, Psych within last two years): N/A (08/05/24799) [place] Dept. of Aging (PDA) Waiver Program: N/A (08/05/24799) AIRCRAFT ENGINE SPECIALIST Transportation (Services received within the last 30 days): Patient drives self (08/05/24799) Outpatient Publishing Editor: No care staff nurse icu resource team to display Patient/Family Expectations: Return home For further screening information, please refer to the Care Management flow document. * Progress Notes - Post-Op Global - Elizabeth Brink MD - 08/05/2024 5:39 AM EST BARIATRIC SURGERY PROGRESS NOTE [facility] [address] Name: Dina Acosta Location: [facility] B632/A Date: 08/05/2024 Time: 5:39 AM DIAGNOSIS: Body mass index is 55.04 kg/m. PROCEDURE: lapl ALVARO-S DATE OF SURGERY: 08/04/24 POST OP DAY: 1 Day Post-Op SUBJECTIVE: NAEON. VSS on RA. Pain well controlled. Tolerating diet, no nausea or vomiting. OOB to ariza. OBJECTIVE: Most Recent Vital Signs: BP: 149 mmHg/73 mmHg (08/05/24249) Pulse: 77 (08/05/24249) Resp: 16 (08/05/24249) Temp: 37.28 C (08/05/24249) Temp Summary: Temp Min: 36.1 C (97 F) Max: 37.3 C (99.1 F) SpO2: 96 % (08/05/24249) O2 flow rate: 3 L/MIN (08/04/24 1500) Supplemental O2 Delivery: Room Air, None (08/05/24249) Vital Signs Last 24 Hours: Systolic BP: Most Recent Systolic BP Av.5 mmHg Min: 131 mmHg Max: 151 mmHg Temperature: Most Recent Temperature Av.7 C Min: 36.11 C Max: 37.28 C Pulse: Pulse Av.3 Min: 66 Max: 95 Respirations: Resp Av.3 Min: 12 Max: 21 SpO2: SpO2 Av.3 % Min: 94 % Max: 100 % In / Out Past 24 Hrs: Intake/Output Summary (Last 24 hours) at 08/05/2024 0539 Last data filed at 08/05/2024 0435 Gross per 24 hour Intake 3494.19 ml Output 400 ml Net 3094.19 ml Physical Exam: Constitutional: no acute distress HEENT: normocephalic, atraumatic Eyes: sclera and conjunctiva normal CV: normal rate, normal rhythm Chest: normal respiratory effort Abdomen: soft, aTTP, incisions with dermabond c/d/i, nondistended Extremities: no edema, warm and well perfused Skin: warm, dry, intact Neuro: alert, oriented to person, place, and time, normal mental status exam LABS: I reviewed the labs in [facility] and findings are as follows: Recent Results (from the past 12 hours) GLUCOSE METER, POINT OF CARE Collection Time: 08/04/24 5:47 PM Result Value Ref Range GLUCOSE - POCT 155 (H) 70 - 120 mg/dL GLUCOSE METER, POINT OF CARE Collection Time: 08/04/24 11:53 PM Result Value Ref Range GLUCOSE - POCT 118 70 - 120 mg/dL IMAGING: No imaging results in the last 24 hours IMPRESSION: Satisfactory post-operative course 34yo F with morbid obesity s/p lap ALVARO-S 08/04. Active Problems: Class 3 severe obesity due to excess calories without serious comorbidity with body mass index (BMI) of 50.0 to 59.9 in adult (HCC) (POA: Unknown) PCOS (polycystic ovarian syndrome) (POA: Unknown) Hyperinsulinemia (POA: Unknown) Central obesity (POA: Unknown) Super obese (POA: Unknown) POA = Present On Admission PLAN: -stage 1 diet -lovenox pending AM labs 1) Current DVT/PE prophylaxis is: sequential compression devices (SCD's) 2) Discharge home on Enoxaparin (Lovenox): Enoxaparin daily as directed by the anticoagulation clinic 3) Was patient taking Beta Blockers preop?: No. 4) Non-narcotic juanito-op pain management with Celecoxib (Celebrex) and Acetaminophen (Tylenol) provided: yes 5) Intraoperative Glycemic Monitoring: Patient's intra-op blood glucose exceeded 150 mg/dl: YES, Post-operative insulin coverage and glycemic monitoring initiated per protocol 6) Sutures/alex to be removed: no sutures to be removed 7) Central line to be removed or continued: patient does not have central venous access 8) Continue current stress ulcer prophylaxis: diet by mouth 9) Review medication administration record this visit: yes 10) Diet: tolerating stage 1; advance to stage 2 POD2 11) Ambulation: ok for OOBAT . 12) Incentive spirometry and vigorous pulmonary toilet. 13) [facility] med c/s Elizabeth Brink MD PGY-1 General Surgery Resident [facility] Cosigned by Sarah Trejo MD at 08/05/2024 2:55 PM EST Associated attestation - Sarah Trejo MD - 08/05/2024 2:55 PM EST I saw and evaluated the patient today. I have reviewed the resident physician note and agree. Sarah Trejo M.D. Minimally Invasive Foregut and Bariatric Surgeon [facility] Office * Progress Notes - Non-Billable - Elizabeth Brink MD - 08/04/2024 5:06 PM EST BARIATRIC SURGERY PROGRESS NOTE [facility] [address] Name: Dina Acosta Location: [facility] B632/A Date: 08/04/2024 Time: 5:06 PM DIAGNOSIS: Body mass index is 50.35 kg/m. PROCEDURE: lapl ALVARO-S DATE OF SURGERY: 08/04/24 POST OP DAY: Day of Surgery - POC SUBJECTIVE: Patient examined at bedside. VSS on RA. Reports minimal pain. Tolerating sips of water. Was nauseous earlier, now resolved. Denies emesis. Not yet ambulated or voided. OBJECTIVE: Most Recent Vital Signs: BP: 149 mmHg/80 mmHg (08/04/24 1557) Pulse: 72 (08/04/24 1557) Resp: 14 (08/04/241556) Temp: 36.89 C (08/04/241556) Temp Summary: Temp Min: 36.1 C (97 F) Max: 36.9 C (98.4 F) SpO2: 96 % (08/04/241556) O2 flow rate: 3 L/MIN (08/04/24 1500) Supplemental O2 Delivery: Room Air, None (08/04/241556) Vital Signs Last 24 Hours: Systolic BP: Most Recent Systolic BP Av.9 mmHg Min: 131 mmHg Max: 151 mmHg Temperature: Most Recent Temperature Av.4 C Min: 36.11 C Max: 36.89 C Pulse: Pulse Av.3 Min: 66 Max: 95 Respirations: Resp Av.4 Min: 12 Max: 21 SpO2: SpO2 Av.5 % Min: 94 % Max: 100 % In / Out Past 24 Hrs: Intake/Output Summary (Last 24 hours) at 08/04/2024 1706 Last data filed at 08/04/2024 1649 Gross per 24 hour Intake 2420 ml Output 200 ml Net 2220 ml Physical Exam: Constitutional: no acute distress HEENT: normocephalic, atraumatic Eyes: sclera and conjunctiva normal CV: normal rate, normal rhythm Chest: normal respiratory effort Abdomen: soft, aTTP, incisions with dermabond c/d/i, nondistended Extremities: no edema, warm and well perfused Skin: warm, dry, intact Neuro: alert, oriented to person, place, and time, normal mental status exam LABS: I reviewed the labs in [facility] and findings are as follows: Recent Results (from the past 12 hours) URINE SCREEN, POINT OF CARE (ENTER/EDIT) Collection Time: 08/04/24 6:44 AM Result Value Ref Range hCG Beta, Urine Negative Negative Procedural Control Valid? Yes Lot Number [id number] Expiration Date 06-09-25 GLUCOSE METER, POINT OF CARE Collection Time: 08/04/24 7:03 AM Result Value Ref Range GLUCOSE - POCT 95 70 - 120 mg/dL GLUCOSE METER, POINT OF CARE Collection Time: 08/04/24 9:51 AM Result Value Ref Range GLUCOSE - POCT 140 (H) 70 - 120 mg/dL GLUCOSE METER, POINT OF CARE Collection Time: 08/04/24 11:50 AM Result Value Ref Range GLUCOSE - POCT 169 (H) 70 - 120 mg/dL GLUCOSE METER, POINT OF CARE Collection Time: 08/04/24 1:10 PM Result Value Ref Range GLUCOSE - POCT 165 (H) 70 - 120 mg/dL GLUCOSE METER, POINT OF CARE Collection Time: 08/04/24 2:37 PM Result Value Ref Range GLUCOSE - POCT 149 (H) 70 - 120 mg/dL IMAGING: No imaging results in the last 24 hours IMPRESSION: Satisfactory post-operative course 34yo F with morbid obesity s/p lap ALVARO-S 08/04. Active Problems: Class 3 severe obesity due to excess calories without serious comorbidity with body mass index (BMI) of 50.0 to 59.9 in adult (HCC) (POA: Unknown) PCOS (polycystic ovarian syndrome) (POA: Unknown) Hyperinsulinemia (POA: Unknown) Central obesity (POA: Unknown) Super obese (POA: Unknown) POA = Present On Admission PLAN: 1) Current DVT/PE prophylaxis is: sequential compression devices (SCD's) 2) Discharge home on Enoxaparin (Lovenox): Enoxaparin daily as directed by the anticoagulation clinic 3) Was patient taking Beta Blockers preop?: No. 4) Non-narcotic juanito-op pain management with Celecoxib (Celebrex) and Acetaminophen (Tylenol) provided: yes 5) Intraoperative Glycemic Monitoring: Patient's intra-op blood glucose exceeded 150 mg/dl: YES, Post-operative insulin coverage and glycemic monitoring initiated per protocol 6) Sutures/alex to be removed: no sutures to be removed 7) Central line to be removed or continued: patient does not have central venous access 8) Continue current stress ulcer prophylaxis: diet by mouth 9) Review medication administration record this visit: yes 10) Diet: tolerating stage 1; advance to stage 2 POD2 11) Ambulation: ok for OOBAT . 12) Incentive spirometry and vigorous pulmonary toilet. 13) [facility] Elizabeth Brink MD PGY-1 General Surgery Resident [facility] * Ancillary Progress Note - Prasanna Hollis, MORTGAGE PROCESSING MANAGER - 08/04/2024 4:56 PM EST PATIENT DRIVEN PROTOCOL - Respiratory Care Services [address] [address] Name: Dina Acosta Location: [facility] B632/A Date: 08/04/2024 Time: 4:56 PM Patient Driven Protocol Summary: Initial evaluation performed. This Treatment Plan and medications will be reviewed by the Primary Care Team for any contraindications. Respiratory Care Treatment Plan Pulmonary Volume Expansion Therapy: Deep Breathing/Cough PRN to prevent or treat alveolar consolidation and atelectasis. . The patient will be re-evaluated: No re-evaluation [...] Clinical Findings Pulmonary Status: 0 - No Smoking or quit greater than 10 years ago Surgical Status: 2 - Lower Abdominal Chest X-Ray: 0 - Not Performed or performed greater than 3 days ago Assessment Score: 2 Patient Assessment Clinical Findings Respiratory Pattern: 0 [...] Air Assessment Score: 1 Total Assessment Score: 3 Breath Sounds: Inspiratory and expiratory clear bilaterally.. Cough and Sputum: An effective cough produced no sputum... Vital Signs: Resp: 14 (08/04/24 1557) Pulse: 72 (08/04/24 155) Temp: 36.9 C (98.4 F) (08/04/24 155) BP: 149/80 (08/04/24 155) SpO2: 96 % (08/04/241556) Primary Service: Surgery Green. Admitting Diagnosis: Class 3 severe obesity due to excess calories without serious comorbidity withbody mass index (BMI) of 50.0 to 59.9 in adult (HCC) [E66.813, Z68.43, E66.01] Super obese [E66.9] PCOS (polycystic ovarian syndrome) [E28.2] Hyperinsulinemia [E16.1] Central obesity [E65] Morbid obesity (HCC) [E66.01] Pulmonary Diagnosis: Obesity. Prescriptions/Home Medications/Durable Medical Equipment: none. Recommended New home medications/durable medical equipment/outpatient pulmonary/sleep referral none. documented in this encounter Plan of Treatment Upcoming Encounters Date Type Department Care Team (Late st Contact Info) Description 08/07/2024 5:10 PM EST Anticoagulation Pharmacy, [place] [address] [place] [address] [facility] [place] [address] 08/20/2024 9:30 AM EST Office Visit General Surgery, [address] [address] Sarah Trejo MD [address] [place] [address] 08/20/2024 11:20 AM EST Office Visit Nutrition & Weight Management, [address] [address] Kaylynn Black PA-C [address] [place] [address] 08/25/2024 8:40 AM EST Nutrition Services Nutrition & Weight Management, [facility] [address] [place] [address] Anjana Saunders RDN [address] [place] [address] 09/01/2024 10:20 AM EST Telemedicine Nutrition & Weight Management, [address] [place] [address] Dina Urbano, JUNO [address] [place] [address] 09/01/2024 1:50 PM EST Telemedicine Nutrition & Weight Management, [facility] [address] [place] [address] Anjana Saunders RDN [address] [place] [address] Health Maintenance Due Date Last Done Comments [...] Associated Diagnosis Comments BASIC METABOLIC PANEL Routine 08/06/2024 8:21 AM EST CBC Routine 08/06/2024 8:21 AM EST GLUCOSE METER, POINT OF CARE [facility] 08/06/2024 5:50 AM EST GLUCOSE METER, POINT OF CARE [facility] 08/05/2024 11:38 PM EST GLUCOSE METER, POINT OF CARE [facility] 08/05/2024 5:49 PM EST GLUCOSE METER, POINT OF CARE [facility] 08/05/2024 12:12 PM EST BASIC METABOLIC PANEL Routine 08/05/2024 9:09 AM EST CBC Routine 08/05/2024 9:09 AM EST GLUCOSE METER, POINT OF CARE [facility] 08/05/2024 5:45 AM EST GLUCOSE METER, POINT OF CARE [facility] 08/04/2024 11:53 PM EST GLUCOSE METER, POINT OF CARE [facility] 08/04/2024 5:47 PM EST GLUCOSE METER, POINT OF CARE [facility] 08/04/2024 2:37 PM EST GLUCOSE METER, POINT OF CARE [facility] 08/04/2024 1:10 PM EST GLUCOSE METER, POINT OF CARE [facility] 08/04/2024 11:50 AM EST GLUCOSE METER, POINT OF CARE [facility] 08/04/2024 9:51 AM EST SURGICAL PATHOLOGY Routine 08/04/2024 8: 57 AM EST Class 3 severe obesity due to excess calories without serious comorbidity with body mass index (BMI) of 50.0 to 59.9 in adult (HCC) Super obese PCOS (polycystic ovarian syndrome) Hyperinsulinemia Central obesity GLUCOSE METER, POINT OF CARE Routine 08/04/2024 7:03 AM EST LAPAROSCOPE PROCEDURE, LIVER 08/04/2024 6:45 AM EST Class 3 severe obesity due to excess calories without serious comorbidity with body mass index (BMI) of 50.0 to 59.9 in adult (HCC) Super obese PCOS (polycystic ovarian syndrome) Hyperinsulinemia Central obesity EGD, Flexible, Diagnostic 08/04/2024 6:45 AM EST Class 3 severe obesity due to excess calories without serious comorbidity with body mass index (BMI) of 50.0 to 59.9 in adult (HCC) Super obese PCOS (polycystic ovarian syndrome) Hyperinsulinemia Central obesity Gastric Restrict/Bypass,Pylo neli Preserving 08/04/2024 6:45 AM EST Class 3 severe obesity due to excess calories without serious comorbidity with body mass index (BMI) of 50.0 to 59.9 in adult (HCC) Super obese PCOS (polycystic ovarian syndrome) Hyperinsulinemia Central obesity URINE SCREEN, POINT OF CARE (ENTER/EDIT) STAT 08/04/2024 6:44 AM EST documented in this encounter Results * BASIC METABOLIC PANEL (08/06/2024 8:21 AM EST) BUN 6 6 - 20 mg/dL 08/06/2024 9:01 AM EST [facility] CREATININE 0.7 0.5 - 1.0 mg/dL 08/06/2024 9:01 AM EST [facility] EGFR >90 >=60 mL/min 08/06/2024 9:01 AM EST [facility] Comment:eGFR is calculated b ased on the CKD-EPI 2020 equation. SODIUM 139 135 - 146 mmol/L 08/06/2024 9:01 AM EST [facility] POTASSIUM 3.6 3.5 - 5.1 mmol/L 08/06/2024 9:01 AM EST [facility] CHLORIDE 106 98 - 107 mmol/L 08/06/2024 9:01 AM EST [facility] CO2 22 22 - 32 mmol/L 08/06/2024 9:01 AM EST [facility] ANION GAP 11 7 - 15 mmol/L 08/06/2024 9:01 AM EST [facility] GLUCOSE 88 70 - 120 mg/dL 08/06/2024 9:01 AM EST [facility] CALCIUM 8.4 8.4 - 10.2 mg/dL 08/06/2024 9:01 AM EST [facility] Blood Venous blood specimen / Unknown Venipuncture / Unknown 08/06/2024 8:21 AM EST 08/06/2024 8:29 AM EST us Elizabeth Brink MD LAB BLOOD ORDERABLES Final Resu lt [facility] [address] [place] [address] * CBC (08/06/2024 8:21 AM EST) WBC 9.38 4.00 - 10.80 K/uL 08/06/2024 8:39 AM EST [facility] RBC 4.61 3.85 - 5.15 M/uL 08/06/2024 8:39 AM EST [facility] HGB 13.6 12.0 - 15.3 g/dL 08/06/2024 8:39 AM EST [facility] HCT 40.3 36.0 - 45.2 % 08/06/2024 8:39 AM EST [facility] MCV 87.4 81.5 - 97.5 fL 08/06/2024 8:39 AM EST [facility] MCH 29.5 27.0 - 34.0 pg 08/06/2024 8:39 AM EST [facility] MCHC 33.7 32.0 - 36.0 g/dL 08/06/2024 8:39 AM EST [facility] RDW 14.0 11.5 - 15.5 % 08/06/2024 8:39 AM EST [facility] PLT 261 140 - 400 K/uL 08/06/2024 8:39 AM EST [facility] MPV 12.0 6.6 - 11.1 fL 08/06/2024 8:39 AM EST [facility] nRBCs 0 <=0 /100 WBCs 08/06/2024 8:39 AM EST [facility] Blood Venous blood specimen / Unknown Venipuncture / Unknown 08/06/2024 8:21 AM EST 08/06/2024 8:29 AM EST us Elizabeth Brink MD LAB BLOOD ORDERABLES Final Resu lt LABORATORY [facility] [address] [place] [address] * GLUCOSE METER, POINT OF CARE (08/06/2024 5:50 AM EST) GLUCOSE - POCT 82 70 - 120 mg/dL 08/06/2024 5:55 AM EST [employer] Blood Whole blood specimen / Unknown 08/06/2024 5:50 AM EST 08/06/2024 5:55 AM EST us Sarah Trejo MD LAB POINT OF CARE T EST DOCKED DEVICE UNSOLICITED RESULTS Final Result Performing Organization Address City/[facility]/ZIP Co de Phone Number [facility] [address] [place] [address] * GLUCOSE METER, POINT OF CARE (08/05/2024 11:38 PM EST) GLUCOSE - POCT 87 70 - 120 mg/dL 08/05/2024 11:39 PM EST [facility] [employer] Blood Whole blood specimen / Unknown 08/05/2024 11:38 PM EST 08/05/2024 11:39 PM EST us Sarah Trejo MD LAB POINT OF CARE T EST DOCKED DEVICE UNSOLICITED RESULTS Final Result Performing Organization Address City/[facility]/ZIP Co de Phone Number [facility] [address] [place] [address] * GLUCOSE METER, POINT OF CARE (08/05/2024 5:49 PM EST) GLUCOSE - POCT 106 70 - 120 mg/dL 08/05/2024 5:56 PM EST [employer] [employer] Blood Whole blood specimen / Unknown 08/05/2024 5:49 PM EST 08/05/2024 5:56 PM EST us Sarah Trejo MD LAB POINT OF CARE T EST DOCKED DEVICE UNSOLICITED RESULTS Final Result [facility] [address] [place] [address] * GLUCOSE METER, POINT OF CARE (08/05/2024 12:12 PM EST) [facility] GLUCOSE - POCT 94 70 - 120 mg/dL 08/05/2024 12:27 PM EST [facility] Blood Whole blood specimen / Unknown 08/05/2024 12:12 PM EST 08/05/2024 12:27 PM EST us Sarah Trejo MD LAB POINT OF CARE T EST DOCKED DEVICE UNSOLICITED RESULTS Final Result [facility] [address] [place] [address] * BASIC METABOLIC PANEL (08/05/2024 9:09 AM EST) [facility] BUN 6 6 - 20 mg/dL 08/05/2024 11:35 AM EST [facility] CREATININE 0.6 0.5 - 1.0 mg/dL 08/05/2024 11:35 AM EST [facility] EGFR >90 >=60 mL/min 08/05/2024 11:35 AM EST [facility] Comment:eGFR is calculated b ased on the CKD-EPI 2020 equation. SODIUM 139 135 - 146 mmol/L 08/05/2024 11:35 AM EST [facility] POTASSIUM 3.6 3.5 - 5.1 mmol/L 08/05/2024 11:35 AM EST [facility] CHLORIDE 102 98 - 107 mmol/L 08/05/2024 11:35 AM EST [facility] CO2 22 22 - 32 mmol/L 08/05/2024 11:35 AM EST [facility] ANION GAP 15 7 - 15 mmol/L 08/05/2024 11:35 AM EST [facility] GLUCOSE 92 70 - 120 mg/dL 08/05/2024 11:35 AM EST [facility] CALCIUM 8.6 8.4 - 10.2 mg/dL 08/05/2024 11:35 AM EST [facility] Blood Venous blood specimen / Unknown Venipuncture / Unknown 08/05/2024 9:09 AM EST 08/05/2024 9:31 AM EST us Elizabeth Brink MD LAB BLOOD ORDERABLES Final Resu lt Performing Organization Address City/[facility]/ZIP Co de Phone Number [facility] [address] [place] [address] * (ABNORMAL) CBC (08/05/2024 9:09 AM EST) WBC 13.83(H) 4.00 - 10.80 K/uL 08/05/2024 9:44 AM EST [facility] RBC 5.01 3.85 - 5.15 M/uL 08/05/2024 9:44 AM EST [facility] HGB 14.6 12.0 - 15.3 g/dL 08/05/2024 9:44 AM EST [facility] HCT 43.5 36.0 - 45.2 % 08/05/2024 9:44 AM EST [facility] MCV 86.8 81.5 - 97.5 fL 08/05/2024 9:44 AM EST [facility] MCH 29.1 27.0 - 34.0 pg 08/05/2024 9:44 AM EST [facility] MCHC 33.6 32.0 - 36.0 g/dL 08/05/2024 9:44 AM EST [facility] RDW 13.9 11.5 - 15.5 % 08/05/2024 9:44 AM EST [facility] PLT 303 140 - 400 K/uL 08/05/2024 9:44 AM EST [facility] MPV 12.1 6.6 - 11.1 fL 08/05/2024 9:44 AM EST [facility] nRBCs 0 <=0 /100 WBCs 08/05/2024 9:44 AM EST [facility] Blood Venous blood specimen / Unknown Venipuncture / Unknown 08/05/2024 9:09 AM EST 08/05/2024 9:31 AM EST us Elizabeth Brink MD LAB BLOOD ORDERABLES Final Resu lt [facility] [address] [place] [address] * GLUCOSE METER, POINT OF CARE (08/05/2024 5:45 AM EST) GLUCOSE - POCT 110 70 - 120 mg/dL 08/05/2024 5:49 AM EST [facility] Blood Whole blood specimen / Unknown 08/05/2024 5:45 AM EST 08/05/2024 5:49 AM EST us Sarah Trejo MD LAB POINT OF CARE T EST DOCKED DEVICE UNSOLICITED RESULTS Final Result [facility] [address] [place] [address] * GLUCOSE METER, POINT OF CARE (08/04/2024 11:53 PM EST) GLUCOSE - POCT 118 70 - 120 mg/dL 08/04/2024 11:55 PM EST [employer] Blood Whole blood specimen / Unknown 08/04/2024 11:53 PM EST 08/04/2024 11:55 PM EST us Sarah Trejo MD LAB POINT OF CARE T EST DOCKED DEVICE UNSOLICITED RESULTS Final Result [facility] [address] [place] [address] * (ABNORMAL) GLUCOSE METER, POINT OF CARE (08/04/2024 5:47 PM EST) GLUCOSE - POCT 155(H) 70 - 120 mg/dL 08/04/2024 6:09 PM EST [employer] Blood Whole blood specimen / Unknown 08/04/2024 5:47 PM EST 08/04/2024 6:09 PM EST us Sarah Trejo MD LAB POINT OF CARE T EST DOCKED DEVICE UNSOLICITED RESULTS Final Result [facility] [address] [place] [address] * (ABNORMAL) GLUCOSE METER, POINT OF CARE (08/04/2024 2:37 PM EST) GLUCOSE - POCT 149(H) 70 - 120 mg/dL 08/04/2024 2:39 PM EST motionID technologiesDEL[facility]ITALFlow[facility]ia [facility] Blood Whole blood specimen / Unknown 08/04/2024 2:37 PM EST 08/04/2024 2:39 PM EST us Sarah Trejo MD LAB POINT OF CARE T EST DOCKED DEVICE UNSOLICITED RESULTS Final Result Performing Organization Address City/[facility]/ZIP Co de Phone Number [facility] [address] [place] [address] * (ABNORMAL) GLUCOSE METER, POINT OF CARE (08/04/2024 1:10 PM EST) GLUCOSE - POCT 165(H) 70 - 120 mg/dL 08/04/2024 1:12 PM EST motionID technologiesDEL[facility]PITALAppSocially Blood Whole blood specimen / Unknown 08/04/2024 1:10 PM EST 08/04/2024 1:12 PM EST Sarah Trejo MD LAB POINT OF CARE T EST DOCKED DEVICE UNSOLICITED RESULTS Final Result Performing Organization Address City/[facility] Co de Phone Number [facility] [address] [place] [address] * (ABNORMAL) GLUCOSE METER, POINT OF CARE (08/04/2024 11:50 AM EST) GLUCOSE - POCT 169(H) 70 - 120 mg/dL 08/04/2024 12:38 PM EST [facility] Blood Whole blood specimen / Unknown 08/04/2024 11:50 AM EST 08/04/2024 12:38 PM EST Sarah Trejo MD LAB POINT OF CARE T EST DOCKED DEVICE UNSOLICITED RESULTS Final Result [facility] [address] [place] [address] * (ABNORMAL) GLUCOSE METER, POINT OF CARE (08/04/2024 9:51 AM EST) GLUCOSE - POCT 140(H) 70 - 120 mg/dL 08/04/2024 11:56 AM EST [facility] Blood Whole blood specimen / Unknown 08/04/2024 9:51 AM EST 08/04/2024 11:56 AM EST Sarah Trejo MD LAB POINT OF CARE T EST DOCKED DEVICE UNSOLICITED RESULTS Final Result Performing Organization Address [facility] Co de Phone Number [facility] [address] [place] [address] * SURGICAL PATHOLOGY (08/04/2024 8:57 AM EST) Final Diagnosis A. Liver, wedge biopsy: Minimal macrovesicular steatosis, 2% No significant fibrosis See microscopic description B. Stomach, gastric body, resection: Benign stomach tissue with no significant pathologic abnormalities 08/06/2024 10:22 AM EST [facility] Clinical History Morbid Obesity 08/06/2024 10:22 AM EST LABORATORY C Gross Description A. Liver. Received in formalin with a container labeled with "Dina Acosta", "[id number]", "1990" and " liver biopsy". Received is a ennis-woodall irregular focally cauterized fragments of soft tissue, 1.5 x 0.7 x 0.4 cm. The fragment is serially sectioned and submitted entirely in cassette A1. Gross By: SHANA B. Stomach. Received in formalin with a container labeled with "Dina Acosta", "[id number]", "1990" and " gastric body". Received is an elongated portion of stomach measuring 15.5 x 5.5 x 3.0 cm. There is one linear staple line running the length of the specimen. The serosa is ennis-pink, smooth and glistening. The specimen is longitudinally opened to reveal a lumen containing a minimal amount of red-brown blood clot. The mucosa is ennis-pink and glistening with normal rugal folding. Zoology Technical Officer sections are submitted in 2 cassettes; with a shave of the margin in cassette B1 Gross By: AY 08/06/2024 10:22 AM EST [facility] Microscopic Description The liver biopsy shows minimal macrovesicular steatosis, with large droplet fat involving approximately 2% of the hepatocytes. No ballooned hepatocyte or well-formed Melissa-Denk body are seen. The portal tracts show minimal inflammation with no interface activity. The interlobular bile ducts are unremarkable. The trichrome stain shows no significant fibrosis. The reticulin stain shows foci of condensation. The PASD stain is negative for [id number] n globules. The iron stain is negative. 08/06/2024 10:22 AM EST [facility] Sign Out Location Pathologist sign out performed at [facility] ([facility]), [address] [place] [id number]. 08/06/2024 10:22 AM EST [facility]ORY [facility] Photographic images and diagrams represent elliott findings in this case; they are not intended to replace a complete review of the final diagnostic report. The following statement applies to Flow Cytometry, Histology, In situ Hybridization Assays and Molecular Genetics. This test was developed and performed at [facility] and its performance characteristics determined by [facility] [employer]. It has not been cleared or approved by the U.S. Food and Drug Administration. The FDA has determined that such clearance or approval is not necessary. This test is used for clinical purposes. It should not be regarded as investigational or for research. Special stains, including histochemical stains, and studies using immunologic and JANEEN methodology (where applicable) are performed with appropriate positive and negative control reactions. 08/06/2024 10:22 AM [facility] LABORATORY [facility] Tissue Liver structure / Unknown 08/04/2024 8:57 AM EST 08/04/2024 3:44 PM EST Specimen from wound (specimen) Stomach part / Unknown 08/04/2024 11:34 AM EST 08/04/2024 3:44 PM EST Sarah Trejo MD LAB PATHOLOGY ORDERABLES Fi nal Result LABORATORY [facility] [address] [place] [address] * GLUCOSE METER, POINT OF CARE (08/04/2024 7:03 AM EST) GLUCOSE - POCT 95 70 - 120 mg/dL 08/04/2024 7:05 AM EST [facility] Blood 08/04/2024 7:03 AM EST 08/04/2024 7:05 AM EST us Elizabeth Brink MD LAB POINT OF CARE TE ST DOCKED DEVICE UNSOLICITED RESULTS Final Result [facility] [address] [place] [address] * URINE SCREEN, POINT OF CARE (ENTER/EDIT) (08/04/2024 6:44 AM EST) hCG Beta, Urine Negative Negative Procedural Control Valid? Yes Lot Number [id number] Expiration Date 06-09-25 Urine 08/04/2024 6:44 AM EST us Elizabeth Brink MD LAB POINT OF CARE TEST ENTER/ED IT ORDERABLES Final Result documented in this encounter Visit Diagnoses Diagnosis Class 3 severe obesity due to excess calories without serious comorbidity with body mass index (BMI) of 50.0 to 59.9 in adult ([facility])- Primary Morbid obesity ([facility]) Morbid obesity Super obese Morbid obesity PCOS (polycystic ovarian syndrome) Polycystic ovaries Hyperinsulinemia Other specified hypoglycemia Central obesity Localized adiposity S/P gastric bypass Bariatric surgery status Depression with anxiety Dysthymic disorder Encounter for counseling regarding contraception Intestinal postoperative nonabsorption Other and unspecified postsurgical nonabsorption Obesity, morbid (more than 100 lbs over ideal weight or BMI > 40) ([facility]) Morbid obesity documented in this encounter Administered Medications Inactive Administered Medications - up to 3 most recent administrations Medication Order MAR Action Action Date Dose Rate Site Acetaminophen (Tylenol) tab 975 mg 975 mg, Oral, PREOP, First dose on Sat08/04/24 at 0715, Last dose on Sat08/04/24 at 0715, For 1 dose, Maximum 4 g acetaminophen/day. Avoid in patients with severe hepatic impairment or severe active liver disease. Administer 60 minutes prior to OR., Pre-Op Given 08/04/2024 7:16 AM EST 975 mg Acetaminophen (Tylenol) tab 975 mg 975 mg, Oral, Q6H, First dose on Sat08/04/24 at 1400, Last dose on Sat08/09/24 at 0600, For 5 days, Maximum 4 g acetaminophen/day. Avoid in patients with severe hepatic impairment or severe active liver disease. Use for 5 days., Post-op Given 08/06/2024 6:23 AM EST 975 mg Given 08/05/2024 11:48 PM EST 975 mg Given 08/05/2024 5:49 PM EST 975 mg chlorhexidine gluconate cloth 2 % pad 1 Pad 1 Pad, External, PREOP, First dose on Sat08/04/24 at 0715, Last dose on Sat08/04/24 at 0715, For 1 dose, Cleanse surgical site area immediately before transferring intra-op, Pre-Op Given 08/04/2024 7:16 AM EST 1 Pad cyclobenzaprine (Flexeril) 5 mg tab 5 mg, Oral, TID(AM/NOON/HS), First dose on Sat08/04/24 at 1400, Until Discontinued Given 08/06/2024 6:23 AM EST 5 mg Given 08/05/2024 9:12 PM EST 5 mg Given 08/05/2024 11:51 AM EST 5 mg dexAMETHasone Sodium Phosphate (Decadron) 4 MG/ML inj 4 mg 4 mg, IV Push, ONCE, On Sat08/04/24 at 1400, For 1 dose, PROTECT FROM LIGHT, PACU Given 08/04/2024 1:24 PM EST 4 mg dextrose 50% inj 25 mL 25 mL, IV Push, PRN Hypoglycemia, Other, For blood glucose 54 - 69 mg/dL or 70 - 100 mg/dL with symptoms AND patient is unresponsive, NPO, OR unable to swallow, Starting on Sat08/04/24 at 1322, Until Deepti 08/06/24 at 1425, Administer IV. Recheck blood glucose after 15 minutes. Notify provider. dextrose 50% inj 50 mL 50 mL, IV Push, PRN Hypoglycemia, Other, For blood glucose below 54 mg/dL AND patient unresponsive, NPO, OR unable to swallow, Starting on Sat08/04/24 at 1322, Until Sat08/06/24 at 1425, Administer IV. Recheck blood glucose in 15 minutes. Notify provider. Enoxaparin (Lovenox) inj 30 mg 30 mg, Subcutaneous, ONCE, On Sat08/04/24 at 0715, For 1 dose, If patient is on warfarin, inform provider if daily INR value is 2 or greater!, Pre-Op Given 08/04/2024 7:17 AM EST 30 mg A bdomen Left Lower Enoxaparin (Lovenox) inj 60 mg 60 mg, Subcutaneous, Q12H, First dose on Sat08/05/24 at 1215, Until Discontinued, If patient is on warfarin, inform provider if daily INR value is 2 or greater! Given 08/06/2024 8:38 AM EST 60 mg Abdomen Right Lower Given 08/05/2024 9:12 PM EST 60 mg Ab domen Right Upper Given 08/05/2024 12:08 PM EST 60 mg A bdomen Right Lower escitalopram (Lexapro) tab 10 mg 10 mg, Oral, Daily(AM), First dose on Sat08/05/24 at 0900, Until Discontinued Given 08/06/2024 8:38 AM EST 10 mg Given 08/05/2024 8:29 AM EST 10 mg Gabapentin (Neurontin) cap 300 mg 300 mg, Oral, PREOP, First dose on Sat08/04/24 at 0715, Last dose on Sat08/04/24 at 0715, For 1 dose, Reduce dose to 100mg for renal impairment with CrCl less than 30 ml/min or for age above 65 years old Avoid if Alzheimer/dementia and CVA in past 3 months. Do Not use with Pregabalin. Administer 60 minutes prior to OR, Pre-Op Given 08/04/2024 7:16 AM EST 300 mg glucagon (Glucagen) inj 1 mg 1 mg, Intramuscular, PRN Hypoglycemia, Other, If patient is unresponsive, or NPO and has no IV access, Starting on Sat08/04/24 at 1322, Until Sat08/06/24 at 1425, NPO and no IV access with either 1) blood glucose less than 100 mg/dL and symptomatic OR 2) blood glucose less than 70 mg/dL and asymptomatic Glucose (Glutose 15) 40 % gel 15 g of glucose 15 g of glucose, Oral, PRN Hypoglycemia (low sugar), Other, For blood glucose 54 - 69 mg/dL or 70 - 100 mg/dL with symptoms AND patient alert WITH difficulty chewing/swallowing, Starting on Sat08/04/24 at 1322, Until Sat08/06/24 at 1425, Administer gel. Recheck blood glucose after 15 minutes. Notify provider. 37.5 gram tube = 15 grams glucose = 1 each Glucose (Glutose 15) 40 % gel 30 g of glucose 30 g of glucose, Oral, PRN Hypoglycemia (low sugar), Other, For blood glucose below 54 mg/dL AND patient alert WITH difficulty chewing/swallowing, Starting on Sat08/04/24 at 1322, Until Sat08/06/24 at 1425, Administer gel. Recheck blood glucose after 15 minutes. Notify provider. 37.5 gram tube = 15 grams glucose = 1 each glucose chew tab 16 g 16 g, Oral, PRN Hypoglycemia, Other, For blood glucose 54 - 69 mg/dL or 70 - 100 mg/dL with symptoms and patient alert without difficulty chewing/swallowing., Starting on Sat08/04/24 at 1322, Until Sat08/06/24 at 1425 HYDROmorphone (Dilaudid) inj 0.5 mg 0.5 mg, IV Push, Q15 MIN PRN Pain, Severe, Starting on Sat08/04/24 at 0831, Until Sat08/04/24 at 1410, For 2 doses, Administer only postop in PACU. Hold for respiratory rate less than 12. Administer up to a total of 1mg., PACU Given 08/04/2024 2:10 PM EST 0.5 mg Given 08/04/2024 1:40 PM EST 0.5 mg insulin aspart (NovoLOG) inj Subcutaneous, Q6H, First dose on Sat08/04/24 at 1400, Until Discontinued, MEDIUM DOSE (Usual starting dose): Sliding Scale Correctional insulin may be given if the patient is NPO. Dose based on standard build from Insulin Calculator. Do not modify insulin doses in administration instructions!, Glucose less than 70 instructions: Obtain STAT lab blood glucose and call covering provider., Glucose 80-150 (units): 0, Glucose 151-200 (units): 2, Glucose 201-250 (units): 4, Glucose 251-300 (units): 6, Glucose greater than 300 (units): 8, Glucose greater than 300 instructions: Give suggested insulin dose and call covering provider. Given 08/04/2024 6:13 PM EST 2 Units Arm Right Upper Isolyte-S pH 7.4 infusion Intravenous, at 100 mL/hr, For Periop use. Plasma-LYTE 148, isolyte-S, and isolyte-S pH 7.4 are considered equivalent - including for MAR barcode scanning., CONTINUOUS, Starting on Sat08/04/24 at 0715, Until Sat08/04/24 at 1514, Pre-Op New Bag 08/04/2024 7:21 AM EST 100 mL/hr Isolyte-S pH 7.4 infusion Intravenous, at 125 mL/hr, Plasma-LYTE 148, isolyte-S, and isolyte-S pH 7.4 are considered equivalent - including for MAR barcode scanning., CONTINUOUS, Starting on Sat08/04/24 at 1400, Until Deepti 08/06/24 at 1425, Post-op Restarted 08/06/2024 7:44 AM EST 125 mL/hr Rate Verify 08/06/2024 5:27 AM EST 125 mL/hr Rate Verify 08/06/2024 2:53 AM EST 125 mL/hr omeprazole (PriLOSEC) cap 20 mg 20 mg, Oral, Daily(AM), First dose on Sat08/05/24 at 0900, Until Discontinued, This med should NOT be Crushed or Chewed, Post-op, Indications: GERDIndications:GERD Given 08/06/2024 8:38 AM EST 20 mg Given 08/05/2024 8:29 AM EST 20 mg ondansetron (Zofran) inj 4 mg 4 mg, IV Push, Q6H PRN Other, May use for nausea or vomiting if patient unable to take oral ondansetron, Starting on Sat08/04/24 at 1318, Until Deepti 08/06/24 at 1425, Post-op ondansetron ODT (Zofran) tab 4 mg 4 mg, On Tongue, Q6H PRN Nausea, Vomiting, Starting on Sat08/04/24 at 1318, Until Deepti 08/06/24 at 1425, Post-op Given 08/05/2024 2:04 PM EST 4 mg oxygen GAS Inhalation, OXYGEN, First dose on Sat08/04/24 at 0915, Until Discontinued, Device/Managed by: Low Flow Device, Goal SPO2 (%): Other, Lower-limit SPO2 (%): 88, Upper-limit SPO2 (%): 92, Starting Device: Nasal Cannula, Initial Flow Rate (LPM): 6 LPM for NC; 10 LPM for NRB mask, Lowest Support: Nasal Cannula: Flow 0-6 LPM. Titrate up/down by 1 LPM., Higher Support: Non-Rebreather (NRB) Mask: Minimum of 10 LPM. Titrate to maintain bag inflation., Titration Interval: Q2 minutes and as needed., Notify Provider: Other, Notify Provider [other]: If SpO2 less than 88%, notify provider immediately, If patient is on Room Air in the PACU and SpO2 is greater than 88% but less than 92% place patient on Nasal Cannula If patient is on Room Air in the PACU and SpO2 is less than 88% place patient on NRB Mask Oxygen On 08/04/2024 1:15 PM EST oxygen GAS Inhalation, OXYGEN, First dose on Sat08/04/24 at 1600, Until Discontinued, Device/Managed by: Low Flow Device, Goal SPO2 (%): 91-95, Starting Device: Nasal Cannula, Initial Flow Rate (LPM): 2, Lowest Support: Nasal Cannula: Flow 0-6 LPM. Titrate up/down by 1 LPM., Titration Interval: Q2 minutes and as needed., Notify Provider: For sudden DECREASE in resting SPO2 to less than 85% and when escalating delivery device., Wean patient off Oxygen when the oxygen saturation is greater than or equal to 93% Povidone-Iodine nasal swab 4 Swab 4 Swab, Nasal, PREOP, First dose on Sat08/04/24 at 0715, Last dose on Sat08/04/24 at 0715, For 1 dose, Tilt the bottle slightly, dip one swab into solution and stir vigorously for 10 seconds. Withdraw the swab slowly to avoid wiping solution off during removal. Insert swab comfortably into one nostril and rotate for 15 seconds, covering all surfaces. Then focus on the inside tip of nostril and rotate for an additional 15 seconds. Using a new swab, Repeat above steps in the other nostril (Swab 2). Repeat the application in both nostrils using a fresh swab each times (Swab 3 and 4)., Pre-Op Given 08/04/2024 7:17 AM EST 4 Swabs Prochlorperazine (Compazine) inj 10 mg 10 mg, IV Push, ONCE, On Sat08/04/24 at 1400, For 1 dose, PACU Given 08/04/2024 1:24 PM EST 10 mg Simethicone (Mylicon) chew tab 160 mg 160 mg, Oral, Q6H PRN Gas, Other, Bloating, Starting on Sat08/04/24 at 1318, Until Deepti 08/06/24 at 1425, Tablets need to be chewed before swallowing!, Post-op Given 08/06/2024 10:06 AM EST 160 mg Given 08/06/2024 4:17 AM EST 160 mg Given 08/05/2024 8:33 AM EST 160 mg topiramate (topAMAX) tab 25 mg 25 mg, Oral, TID 06;12;18, First dose on Sat08/04/24 at 1800, Until Discontinued Given 08/06/2024 6:23 AM EST 25 mg Given 08/05/2024 5:49 PM EST 25 mg Given 08/05/2024 11:51 AM EST 25 mg traMADol (Ultram) tab 50 mg 50 mg, Oral, Q6H PRN Pain, Severe, Starting on Sat08/04/24 at 1320, Until Deepti 08/06/24 at 1425, Post-op Given 08/06/2024 10:06 AM EST 50 mg Given 08/05/2024 10:28 AM EST 50 mg Given 08/04/2024 5:36 PM EST 50 mg documented in this encounter Active and Recently Administered Medications Times are shown in EST. Scheduled Medication Order 08/04/2024 08/05/2024 08/06/2024 Acetaminophen (Tylenol) tab 975 mg (COMPLETED) 975 mg, Oral, PREOP, First dose on Sat08/04/24 at 0715, Last dose on Sat08/04/24 at 0715, For 1 dose, Maximum 4 g acetaminophen/day. Avoid in patients with severe hepatic impairment or severe active liver disease. Administer 60 minutes prior to OR., Pre-Op 0716 (Given - Provider: Kaylynn Perez RN) Acetaminophen (Tylenol) tab 975 mg 975 mg, Oral, Q6H, First dose on Sat08/04/24 at 1400, Last dose on Sat08/09/24 at 0600, For 5 days, Maximum 4 g acetaminophen/day. Avoid in patients with severe hepatic impairment or severe active liver disease. Use for 5 days., Post-op 1442 (Given - Provider: Liliya Carr, RN)2017 (Given - Provider: Carson Gupta RN - Comment: Scheduled at this time) 0022 (Given - Provider: Carson Gupta RN)0557 (Given - Provider: Carson Gupta, SOL)1151 (Given - Provider: Kati Cooney RN)1749 (Given - Provider: Kati Cooney RN)2348 (Given - Provider: Carson Gupta, SOL) 0623 (Given - Provider: Carson Gupta, SOL) chlorhexidine gluconate cloth 2 % pad 1 Pad (COMPLETED) 1 Pad, External, PREOP, First dose on Sat08/04/24 at 0715, Last dose on Sat08/04/24 at 0715, For 1 dose, Cleanse surgical site area immediately before transferring intra-op, Pre-Op 0716 (Given - Provider: Kaylynn Perez RN) Clindamycin in D5W (Cleocin) ivpb 900 mg (COMPLETED) 900 mg, IV Piggyback, PREOP, First dose on Sat08/04/24 at 0715, Last dose on Sat08/04/24 at 0715, For 1 dose, Administer 60 minutes prior to skin incision, Pre-Op 0804 (Given - Provider: Elio Dove MD) cyclobenzaprine (Flexeril) 5 mg tab 5 mg, Oral, TID(AM/NOON/HS), First dose on Sat08/04/24 at 1400, Until Discontinued 151 (Given - Provider: Liliya Carr RN)2144 (Given - Provider: Carson Gupta RN) 0556 (Given - Provider: Carson Gupta, SOL)1151 (Given - Provider: Kati Cooney RN)2111 (Given - Provider: Carson Gupta RN) 06 (Given - Provider: Carson Gupta RN) dexAMETHasone Sodium Phosphate (Decadron) 4 MG/ML inj 4 mg (COMPLETED) 4 mg, IV Push, ONCE, On Sat08/04/24 at 1400, For 1 dose, PROTECT FROM LIGHT, PACU 1324 (Given - Provider: Liliya Carr, SOL) Enoxaparin (Lovenox) inj 30 mg (COMPLETED) 30 mg, Subcutaneous, ONCE, On Sat08/04/24 at 0715, For 1 dose, If patient is on warfarin, inform provider if daily INR value is 2 or greater!, Pre-Op 0717 (Given - Provider: Kaylynn Perez RN) Enoxaparin (Lovenox) inj 60 mg 60 mg, Subcutaneous, Q12H, First dose on Sat08/05/24 at 1215, Until Discontinued, If patient is on warfarin, inform provider if daily INR value is 2 or greater! 1208 (Given - Provider: Kati Cooney RN)2111 (Given - Provider: Carson Gupta RN) 08 (Given - Provider: Jimmie Benz, SOL) escitalopram (Lexapro) tab 10 mg 10 mg, Oral, Daily(AM), First dose on Sat08/05/24 at 0900, Until Discontinued 08 (Given - Provider: Kati Cooney RN) 0838 (Given - Provider: Jimmie Benz, SOL) Gabapentin (Neurontin) cap 300 mg (COMPLETED) 300 mg, Oral, PREOP, First dose on Sat08/04/24 at 0715, Last dose on Sat08/04/24 at 0715, For 1 dose, Reduce dose to 100mg for renal impairment with CrCl less than 30 ml/min or for age above 65 years old Avoid if Alzheimer/dementia and CVA in past 3 months. Do Not use with Pregabalin. Administer 60 minutes prior to OR, Pre-Op 0716 (Given - Provider: Kaylynn Perez RN) insulin aspart (NovoLOG) inj Subcutaneous, Q6H, First dose on Sat08/04/24 at 1400, Until Discontinued, MEDIUM DOSE (Usual starting dose): Sliding Scale Correctional insulin may be given if the patient is NPO. Dose based on standard build from Insulin Calculator. Do not modify insulin doses in administration instructions!, Glucose less than 70 instructions: Obtain STAT lab blood glucose and call covering provider., Glucose 80-150 (units): 0, Glucose 151-200 (units): 2, Glucose 201-250 (units): 4, Glucose 251-300 (units): 6, Glucose greater than 300 (units): 8, Glucose greater than 300 instructions: Give suggested insulin dose and call covering provider. 1400 (Not Given - Provider: Liliya Carr RN - Reason: Parameter(s) Not Met - Comment: poc 149)1813 (Given - Provider: Chad Payne RN) 0008 (No Insulin - Provider: Carson Gupta RN - Reason: Parameter(s) Not Met)0600 (No Insulin - Provider: Carson Gupta RN - Reason: Parameter(s) Not Met)1200 (No Insulin - Provider: Kati Cooney RN - Reason: Parameter(s) Not Met)1800 (No Insulin - Provider: Kati Cooney RN - Reason: Parameter(s) Not Met) 0000 (No Insulin - Provider: Carson Gupta RN - Reason: Parameter(s) Not Met)0600 (No Insulin - Provider: Carson Gupta RN - Reason: Parameter(s) Not Met) omeprazole (PriLOSEC) cap 20 mg 20 mg, Oral, Daily(AM), First dose on Sat08/05/24 at 0900, Until Discontinued, This med should NOT be Crushed or Chewed, Post-op, Indications: GERD 0829 (Given - Provider: Kati Cooney RN) 0838 (Given - Provider: Jimmie Benz RN) oxygen GAS (CANCELED) Inhalation, OXYGEN, First dose on Sat08/04/24 at 0915, Until Discontinued, Device/Managed by: Low Flow Device, Goal SPO2 (%): Other, Lower-limit SPO2 (%): 88, Upper-limit SPO2 (%): 92, Starting Device: Nasal Cannula, Initial Flow Rate (LPM): 6 LPM for NC; 10 LPM for NRB mask, Lowest Support: Nasal Cannula: Flow 0-6 LPM. Titrate up/down by 1 LPM., Higher Support: Non-Rebreather (NRB) Mask: Minimum of 10 LPM. Titrate to maintain bag inflation., Titration Interval: Q2 minutes and as needed., Notify Provider: Other, Notify Provider [other]: If SpO2 less than 88%, notify provider immediately, If patient is on Room Air in the PACU and SpO2 is greater than 88% but less than 92% place patient on Nasal Cannula If patient is on Room Air in the PACU and SpO2 is less than 88% place patient on NRB Mask 0915 (OR/Procedure - Provider: Liliya Carr RN)1315 (Oxygen On - Provider: Liliya Carr RN) oxygen GAS Inhalation, OXYGEN, First dose on Sat08/04/24 at 1600, Until Discontinued, Device/Managed by: Low Flow Device, Goal SPO2 (%): 91-95, Starting Device: Nasal Cannula, Initial Flow Rate (LPM): 2, Lowest Support: Nasal Cannula: Flow 0-6 LPM. Titrate up/down by 1 LPM., Titration Interval: Q2 minutes and as needed., Notify Provider: For sudden DECREASE in resting SPO2 to less than 85% and when escalating delivery device., Wean patient off Oxygen when the oxygen saturation is greater than or equal to 93% 1600 (Oxygen Off - Provider: Chad Payne RN) 0000 (Oxygen Off - Provider: Carson Gupta RN)0800 (Oxygen Off - Provider: Kati Cooney RN)1600 (Oxygen Off - Provider: Kati Cooney RN) 0000 (Oxygen Off - Provider: Carson Gupta RN)0800 (Oxygen Off - Provider: Jimmie Benz RN) Povidone-Iodine nasal swab 4 Swab (COMPLETED) 4 Swab, Nasal, PREOP, First dose on Sat08/04/24 at 0715, Last dose on Sat08/04/24 at 0715, For 1 dose, Tilt the bottle slightly, dip one swab into solution and stir vigorously for 10 seconds. Withdraw the swab slowly to avoid wiping solution off during removal. Insert swab comfortably into one nostril and rotate for 15 seconds, covering all surfaces. Then focus on the inside tip of nostril and rotate for an additional 15 seconds. Using a new swab, Repeat above steps in the other nostril (Swab 2). Repeat the application in both nostrils using a fresh swab each times (Swab 3 and 4)., Pre-Op 0717 (Given - Provider: aKylynn Perez RN) Prochlorperazine (Compazine) inj 10 mg (COMPLETED) 10 mg, IV Push, ONCE, On Sat08/04/24 at 1400, For 1 dose, PACU 1324 (Given - Provider: Liliya Carr, SOL) topiramate (topAMAX) tab 25 mg 25 mg, Oral, TID 06;12;18, First dose on Sat08/04/24 at 1800, Until Discontinued 1800 (Not Given - Provider: Chad Payne RN - Reason: Refused-Notify Provider - Comment: DR Crissy henao notified.) 0556 (Given - Provider: Carson Gupta, SOL)1151 (Given - Provider: Kati Cooney, SOL)1749 (Given - Provider: Kati Cooney, SOL) 0623 (Given - Provider: Carson Gupta, SOL) Continuous Medication Order 08/04/2024 08/05/2024 08/06/2024 Isolyte-S pH 7.4 infusion () Intravenous, at 100 mL/hr, For Periop use. Plasma-LYTE 148, isolyte-S, and isolyte-S pH 7.4 are considered equivalent - including for MAR barcode scanning., CONTINUOUS, Starting on Sat08/04/24 at 0715, Until Sat08/04/24 at 1514, Pre-Op 0721 (New Bag - Provider: Kaylynn Perez RN) Isolyte-S pH 7.4 infusion Intravenous, at 125 mL/hr, Plasma-LYTE 148, isolyte-S, and isolyte-S pH 7.4 are considered equivalent - including for MAR barcode scanning., CONTINUOUS, Starting on Sat08/04/24 at 1400, Until Deepti 08/06/24 at 1425, Post-op 1433 (New Bag - Provider: Liliya Carr RN)1620 (Associate Infusion Pump - Provider: Chad Payne, SOL)1739 (Rate Verify - Provider: Chad Payne, RN)2156 (KVO - Provider: Carson Gupta RN)2300 (Rate Verify - Provider: Carson Gupta RN) 0000 (New Bag - Provider: Ioana Burnett, SOL)0014 (Rate Verify - Provider: Carson Gupta, SOL)0435 (Rate Verify - Provider: Carson Gupta, SOL)0832 (New Bag - Provider: Kati Cooney RN)1639 (New Bag - Provider: Kati Cooney RN)2344 (Rate Verify - Provider: Carson Gupta RN) 0041 (Stopped - Provider: Carson Gupta RN)0043 (New Bag - Provider: Carmella Chavis RN)0253 (Rate Verify - Provider: Carson Gupta RN)0527 (Rate Verify - Provider: Carson Gupta RN)0742 (Paused - Provider: Jimmie Benz, RN)0744 (Restarted - Provider: Jimmie Benz, RN)0837 (Stopped - Provider: Jimmie Benz, RN) PRN Medication Order 08/04/2024 08/05/2024 08/06/2024 BUPivacaine-EPINEPHrine 0.25 % 60 mL in NSS 60 mL iv soln (CANCELED) ONCE PRN INTRA PROCEDURE, Starting on Sat08/04/24 at 0906, Until Sat08/04/24 at 1304, Intra-Op 0906 (Given - Provider: Sarah Trejo MD) dextrose 50% inj 25 mL 25 mL, IV Push, PRN Hypoglycemia, Other, For blood glucose 54 - 69 mg/dL or 70 - 100 mg/dL with symptoms AND patient is unresponsive, NPO, OR unable to swallow, Starting on Sat08/04/24 at 1322, Until Deepti 08/06/24 at 1425, Administer IV. Recheck blood glucose after 15 minutes. Notify provider. dextrose 50% inj 50 mL 50 mL, IV Push, PRN Hypoglycemia, Other, For blood glucose below 54 mg/dL AND patient unresponsive, NPO, OR unable to swallow, Starting on Sat08/04/24 at 1322, Until Sat08/06/24 at 1425, Administer IV. Recheck blood glucose in 15 minutes. Notify provider. glucagon (Glucagen) inj 1 mg 1 mg, Intramuscular, PRN Hypoglycemia, Other, If patient is unresponsive, or NPO and has no IV access, Starting on Sat08/04/24 at 1322, Until Sat08/06/24 at 1425, NPO and no IV access with either 1) blood glucose less than 100 mg/dL and symptomatic OR 2) blood glucose less than 70 mg/dL and asymptomatic Glucose (Glutose 15) 40 % gel 15 g of glucose 15 g of glucose, Oral, PRN Hypoglycemia (low sugar), Other, For blood glucose 54 - 69 mg/dL or 70 - 100 mg/dL with symptoms AND patient alert WITH difficulty chewing/swallowing, Starting on Sat08/04/24 at 1322, Until Sat08/06/24 at 1425, Administer gel. Recheck blood glucose after 15 minutes. Notify provider. 37.5 gram tube = 15 grams glucose = 1 each Glucose (Glutose 15) 40 % gel 30 g of glucose 30 g of glucose, Oral, PRN Hypoglycemia (low sugar), Other, For blood glucose below 54 mg/dL AND patient alert WITH difficulty chewing/swallowing, Starting on Sat08/04/24 at 1322, Until Sat08/06/24 at 1425, Administer gel. Recheck blood glucose after 15 minutes. Notify provider. 37.5 gram tube = 15 grams glucose = 1 each glucose chew tab 16 g 16 g, Oral, PRN Hypoglycemia, Other, For blood glucose 54 - 69 mg/dL or 70 - 100 mg/dL with symptoms and patient alert without difficulty chewing/swallowing., Starting on Sat08/04/24 at 1322, Until Sat08/06/24 at 1425 HYDROmorphone (Dilaudid) inj 0.5 mg (COMPLETED) 0.5 mg, IV Push, Q15 MIN PRN Pain, Severe, Starting on Sat08/04/24 at 0831, Until Sat08/04/24 at 1410, For 2 doses, Administer only postop in PACU. Hold for respiratory rate less than 12. Administer up to a total of 1mg., PACU 1340 (Given - Provider: Liliya Carr, RN)1410 (Given - Provider: Liliya Carr, RN) ondansetron (Zofran) inj 4 mg(Linked Group 1) 4 mg, IV Push, Q6H PRN Other, May use for nausea or vomiting if patient unable to take oral ondansetron, Starting on Sat08/04/24 at 1318, Until Deepti 08/06/24 at 1425, Post-op 1404 (See Alternative - Provider: Kati Cooney RN) ondansetron ODT (Zofran) tab 4 mg(Linked Group 1) 4 mg, On Tongue, Q6H PRN Nausea, Vomiting, Starting on Sat08/04/24 at 1318, Until Deepti 08/06/24 at 1425, Post-op 1404 (Given - Provider: Kati Cooney RN) Simethicone (Mylicon) chew tab 160 mg 160 mg, Oral, Q6H PRN Gas, Other, Bloating, Starting on Sat08/04/24 at 1318, Until Deepti 08/06/24 at 1425, Tablets need to be chewed before swallowing!, Post-op 1643 (Given - Provider: Chad Payne RN) 0833 (Given - Provider: Kati Cooney RN) 0417 (Given - Provider: Carson Gupta RN)1006 (Given - Provider: Jimmie Benz, SOL) sodium chloride IR 0.9 % irrigation (CANCELED) ONCE PRN INTRA PROCEDURE, Starting on Sat08/04/24 at 0907, Until Sat08/04/24 at 1304, Intra-Op 0907 (Given - Provider: Sarah Trejo MD - Comment: PRN irrigation) traMADol (Ultram) tab 50 mg 50 mg, Oral, Q6H PRN Pain, Severe, Starting on Sat08/04/24 at 1320, Until Deepti 08/06/24 at 1425, Post-op 1736 (Given - Provider: Chad Payne RN) 1028 (Given - Provider: Kati Cooney RN) 1006 (Given - Provider: Jimmie Benz, SOL) Linked Groups Order Group 1: ondansetron ODT (Zofran) tab 4 mgJump to med 4 mg, On Tongue, Q6H PRN Nausea, Vomiting, Starting on e 08/04/24 at 1318, Until Deepti 08/06/24 at 1425, Post-op Or ondansetron (Zofran) inj 4 mgJump to med 4 mg, IV Push, Q6H PRN Other, May use for nausea or vomiting if patient unable to take oral ondansetron, Starting on Sat08/04/24 at 1318, Until Deepti 08/06/24 at 1425, Post-op documented in this encounter Advance Directives * [...] Discussed due to patient's condition Care Teams Tax Services Intern Relationship Specialty Start Date End Date Cinthya Hatfield DO [address] [place] [id number] PCP - General Family Medicine 01/29/24 documented as of this encounter
--- OUTSIDE RECORDS SUMMARY | 2024-09-17 06:12 | External Medical Summary ---
Author Name Unknown Address Unknown Organization K01:[facility] [place] - [address] [place] [address] Laboratory Report Ordering Provider Test Date Status SUSAN TOVAR 08/05/2024 09:09:00 Final Observation Date Value Abnormality Reference (Units ) Status BUN 08/05/2024 09:09:00 6 6-20 (mg/dL) Final Creatinine 08/05/2024 09:09:00 0.6 0.5-1.0 (mg/dL) Final Glomerular filtration rate/1.73 sq M.predicted [Volume Rate/Area] in Serum, Plasma or Blood by Creatinine-based formula (CKD-EPI) 08/05/2024 09:09:00 >90 >=60 (mL/min) Final eGFR is calculated based on the CKD-EPI 2020 equation. Sodium 08/05/2024 09:09:00 139 135-146 (m mol/L) Final Potassium 08/05/2024 09:09:00 3.6 3.5-5.1 (m mol/L) Final Cl 08/05/2024 09:09:00 102 98-107 (mm ol/L) Final CO2 08/05/2024 09:09:00 22 22-32 (mmo l/L) Final Anion gap 08/05/2024 09:09:00 15 7-15 (mmol /L) Final Glucose 08/05/2024 09:09:00 92 70-120 (mg /dL) Final Calcium 08/05/2024 09:09:00 8.6 8.4-10.2 ( mg/dL) Final Performing Location [facility] [place] - [address] [place] [address]
--- OUTSIDE RECORDS SUMMARY | 2024-09-17 06:13 | External Medical Summary ---
Author Name Unknown Address Unknown Organization : Laboratory Report Ordering Provider Test Date Status SUSAN TOVAR 08/04/2024 07:03:12 Final Observation Date Value Abnormality Reference (Units ) Status Glucose Point of Care 08/04/2024 07:03:12 95 70-120 (mg/dL) Final Performing Location
--- OUTSIDE RECORDS SUMMARY | 2024-09-17 06:13 | External Medical Summary ---
Author Name Unknown Address Unknown Organization : Laboratory Report Ordering Provider Test Date Status ADWOA TANG 08/04/2024 11:50:40 Final Observation Date Value Abnormality Reference (Units ) Status Glucose Point of Care 08/04/2024 11:50:40 169 Above high normal 70-120 (mg/dL) Final Performing Location
--- OUTSIDE RECORDS SUMMARY | 2024-09-17 06:13 | External Medical Summary ---
Author Name Unknown Address Unknown Organization : Laboratory Report Ordering Provider Test Date Status ADWOA TANG 08/04/2024 13:10:41 Final Observation Date Value Abnormality Reference (Units ) Status Glucose Point of Care 08/04/2024 13:10:41 165 Above high normal 70-120 (mg/dL) Final Performing Location
--- OUTSIDE RECORDS SUMMARY | 2024-09-17 06:13 | External Medical Summary | Summary of Care ---
Author Name Unknown Organization [facility] Address [address] [place] [address] Phone [phone] Care Team Providers Care Cloud Solutions Architect Name Role Phone Cinthya Hatfield DO Primary Care Provider [phone] Encounter Details Date Type Department Care Team (Latest Contact Info) Description 07/17/2024 8:00 AM EDT Telemedicine Nutrition & Weight Management, [place] [address] [place] [address] Lidya Gabriel MD [address] [place] [address] Abnormal weight gain*; Morbid obesity with BMI of 50.0-59.9, adult (HCC); Migraine with aura and without status migrainosus, not intractable; Asthma, unspecified asthma severity, unspecified whether complicated, unspecified whether persistent; Depression with anxiety; Encounter for contraceptive management, unspecified type Allergies Active Allergy Reactions Criticality Noted Date Comments Amoxicillin 11/23/2005 Diphenhydramine Other (Please comment) High 11/29/19 18 Cephalexin High 04/23/2019 Itchy, hives, throat closing, chest tightness. documented as of this encounter (statuses as of 07/17/2024) Medications Medication Sig Dispensed Refills Start Date End Date Status Montelukast Sodium 10 MG Oral Tablet (Singulair) Take 1 Tablet by mouth in the morning. 90 Tablet 3 09/26/2023 Active Norgestimate-Eth Estradiol 0.25-35 MG-MCG Oral Tablet (Sprintec 28)Indications:PCOS (polycystic ovarian syndrome) Take 1 Tablet by mouth in the morning. In the morning.. 84 Tablet 3 04/23/2024 Active Topiramate 25 MG Oral Tablet (Topamax) Take 1 Tablet by mouth in the morning and 1 Tablet at noon and 1 Tablet in the evening. 90 Tablet 2 04/23/2024 Active Escitalopram Oxalate 10 MG Oral Tablet (Lexapro)Indications :Adjustment disorder with anxious mood Take 1 Tablet by mouth in the morning. 30 Tablet 2 06/25/2024 Active Ozempic (1 MG/DOSE) 4 MG/3ML Subcutaneous Solution Pen-injector (Semaglutide (1 MG/DOSE)) Inject 1 mg under the skin once a week. 3 mL 1 07/03/2024 Active Enoxaparin Sodium 60 MG/0.6ML Injection Solution Prefilled Syringe (Lovenox)Indications :Hyperinsulinemia,PC OS (polycystic ovarian syndrome),Central obesity,Pre-operativ e examination,Class 3 severe obesity due to excess [...] for 10 days after procedure 12 mL 07/03/2024 Active Azithromycin 250 MG Oral Tablet (Zithromax)Indicatio ns:Bronchitis, complicated Take 2 tabs by mouth on the first day, then 1 tab daily on days two through five 6 Tablet 07/16/2024 07/21/2024 Active documented as of this encounter (statuses as of 07/17/2024) Active Problems Problem Noted Date Diagnosed Date Pre-operative examination 07/03/2024 JOHNSON RESEARCH OTHER*[id number] 07/03/2024 Central obesity 06/15/2024 Hyperinsulinemia 09/26/2023 Left-sided [...] as of this encounter (statuses as of 07/17/2024) Resolved Problems Problem Noted Date Diagnosed Date Resolved Date Class 3 severe obesity due t o excess calories without serious comorbidity with body mass index (BMI) of 60.0 to 69.9 in adult 07/03/2024 Migraine variant 05/18/2020 11/24/2022 Generalized abdominal pain 10/22/2017 0 11/24/2022 BMI 50.0-59.9, adult 10/22/2017 023 Overview: bmi= 53.70 10/22/17 Seizure disorder 10/22/2017 08/31/2022 Body mass index (BMI) of 50. 0 to 59.9 in adult 06/17/2017 10/22/2017 Overview: Per Obesity protocol #1 Cellulitis of external cheek, left 03/04/2015 03/14/2017 Super obese 05/28/2014 07/16/2024 Overview: bmi= 49.69 05/28/14 Sinus congestion 09/17/2012 03/14/2017 Chronic rhinitis 09/17/2012 03/14/2017 Irregular menses 05/27/2012 03/14/2017 Migraine variant 10/02/2010 11/24/2022 documented as of this encounter (statuses as of 07/17/2024) Immunizations Name Administration Dates Next Due COVID-19 mRNA, LNP-s, No Pre serve, 2-Dose Series (Medxnote) 08/29/2021,10/03/2020,09/12/2020 Hepatitis B, 20+ yrs 04/27/2022,12/15/2021,11/10 MMR [...] have concerns for your saf ety? No 04/24/2024 Do you have concerns for you r family's safety? (Household - for ages 0-17 years) Not on file 04/24/2024 Utilities Answer Date Recorded Do you have trouble paying y our heating, water, or electric bill? No 04/24/2024 Is your family able to pay t he heat, water, or electric bill? (Household - for ages 0-17 years) Not on file 04/24/2024 Does your family have access to good internet? (Household - for ages 0-17 years) Not on file 04/24/2024 Employment Status Answer Date Recorded Are you [...] 18 years and over) Not on file 04/24/2024 Does your family have a hard time getting a ride to doctors visits? (Household - for ages 0-17 years) Not on file 04/24/2024 Has lack of transportation k ept you from medical appointments, meetings, work, or from getting things needed for daily living? Check all that apply. No 04/24/2024 Do you (or your family) have trouble finding or paying for a ride (transportation)? (Household - for ages 0-17 years) Not on file 04/24/2024 Housing Stability Answer Date Recorded Do you currently live in a s helter or have no steady place to sleep at night? No 04/24/2024 Do you think you are at risk of becoming homeless? (Adult - for ages 18 years and over) Not on file 04/24/2024 Does your family worry about paying for your home or becoming homeless? (Household - for ages 0-17 years) Not on file 0 04/24/2024 Are you homeless or worried that you might be in the future? No 04/24/2024 Are you (or your family) alexi eless or worried that you might be in the future? (Household - for ages 0-17 years) Not on file Food Insecurity Answer Date Recorded Do you need food for this week? No 04/24/2024 Are you able to get enough f ood for your family? (Household - for ages 0-17 years) Not on file 04/24/2024 Does your family need food t his week? (Household - for ages 0-17 years) Not on file 04/24/2024 Do you always have enough fo od for your family? (Household - for ages 0-17 years) Not on file 04/24/2024 Sex and Gender Information Value Date Recorded Sex Assigned at Female 06/19/2019 1:31 PM EDT Gender Identity Female 06/19/2019 1:31 PM EDT Sexual Orientation Straight 04/22/2019 1: 43 PM EDT Job Start Date Occupation Industry Not on file Not on file Not on file documented as of this encounter Progress Notes * Lidya Gabriel MD - 07/17/2024 8:03 AM EDT Medication reconciliation before bariatric surgery 08/04/2024 After connecting to the patient via telephone, the patient was identified by name and date of . Patient was then informed that this was a telephone call only visit. The patient agreed to participate. Message was sent to patient outlining the following: Start stage 2 diet two weeks before surgery (07/21/2024). Stop all vitamins and supplements when starting the stage 2 diet. Last dose of Ozempic was 07/10/2024. Continue to hold this. Stop all aspirin, anti-inflammatories (ibuprofen, advil, aleve, etc) 7 days before surgery. Use only tylenol based medications for pain. Last dose day of surgery: Topamax, Singulair, Lexapro, Sprintec Contraception: Patient is scheduled to undergo ALVARO. She says that she was not planning to have kids, but was never told that she could not get after having this surgery. Advised patient to call surgeon to switch to Sherwin-en-Y gastric bypass if she plans to have children in the future. Patient will make an appointment to have IUD or Nexplanon placed. OCPs to continue in the meantime. Lidya Gabriel MD documented in this encounter Plan of Treatment Upcoming Encounters Date Type Department Care Team (Latest Contact Info) Description 08/04/2024 7:45 AM EST Hospital Encounter [facility], OPERATING [facility] [place] [phone] Sarah Trejo MD [address] [place] [address] 08/04/2024 7:45 AM EST Anesthesia Event OR [facility], OPERATING ROOM [facility] [address] [place] [facility] [place] [address] Niko An CRNP [address] [place] [address] 08/04/2024 7:45 AM EST - 08/04/2024 1:40 PM EST Surgery OR [facility], OPERATING ROOM [facility] [address] [place] [phone] Sarah Trejo MD [address] [place] [address] LAPAROSCOPIC GASTRIC RESTRICTIVE PROCEDURE PARTIAL GASTRECTOMY PYLORUS PRESERVING SINGLE ANASTOMOSIS 08/05/2024 5:10 PM EST [address] [address] [place] [address] [place] [address] 08/21/2024 8:40 AM EST Nutrition Services Nutrition & Weight Management, [facility] [address] [facility] [place] [address] Anjana Saunders RDN [address] [place] [address] 08/21/2024 9:00 AM EST Office Visit Nutrition & Weight Management, [facility] [address] [place] [address] Josie Dennison PA-C [address] [place] [address] 08/21/2024 11:45 AM EST Office Visit General Surgery, [facility] [address] [place] [address] [facility] [address] [facility] [id number] Scheduled Procedures Name Priority Associated Diagnoses Date/Ti me LAPAROSCOPIC GASTRIC RESTRIC TIVE PROCEDURE PARTIAL GASTRECTOMY PYLORUS PRESERVING SINGLE ANASTOMOSIS Class 3 severe obesity due to excess calories without serious comorbidity with body mass index (BMI) of 50.0 to 59.9 in adult (HCC) Super obese PCOS (polycystic ovarian syndrome) Hyperinsulinemia Central obesity 08/04/2024 7:45 AM EST ESOPHAGOGASTRODUODENOSCOPY ( EGD), FLEXIBLE, TRANSORAL, DIAGNOSTIC Class 3 severe obesity due to excess calories without serious comorbidity with body mass index (BMI) of 50.0 to 59.9 in adult (HCC) Super obese PCOS (polycystic ovarian syndrome) Hyperinsulinemia Central obesity 08/04/2024 7:45 AM EST UNLISTED LAPAROSCOPIC PROCED URE LIVER Class 3 severe obesity due to excess calories without serious comorbidity with body mass index (BMI) of 50.0 to 59.9 in adult (HCC) Super obese PCOS (polycystic ovarian syndrome) Hyperinsulinemia Central obesity 08/04/2024 7:45 AM EST Health Maintenance Due Date Last Done Comments COVID-19 Vaccine ( season) 2024 08/29/2021, 10/03/2020, 09/12/2020 Influenza Vaccine (FLU shot) (#1) 2024 07/19/2022, 07/19/2022, 06/21/2021, Additional history exists DTap/Tdap Vaccines (2 - Td or Tdap) 05/28/2024 05/28/2014 Depression Screening 04/24/2025 04/24/2024, 04/23/20 24 PAP SMEAR-EVERY 2 YRS,AGES 18-100 04/23/2026 04/23/2024, 04/12/2021, 05/16/2018, Additional history exists Hepatitis B Vaccine Completed 04/27/2022, 12/15/2021, 11/10/2021 HPV (Gardasil) Vaccine Aged Out No lo nger eligible based on patient's age to complete this topic MENINGOCOCCAL (MENACTRA/MENVEO) Aged Out No longer eligible based on patient's age to complete this topic Pneumococcal Vaccine: Pediatrics (0 to 5 Years) and At-Risk Patients (6 to 64 Years) Aged Out No longer eligible based on patient's age to complete this topic documented as of this encounter Medical Devices Not on filedocumented as of this encounter Visit Diagnoses Diagnosis Class 3 severe obesity due to excess calories without serious comorbidity with body mass index (BMI) of 50.0 to 59.9 in adult (HCC) PCOS (polycystic ovarian syndrome) Polycystic ovaries Hyperinsulinemia Other specified hypoglycemia Central obesity Localized adiposity Abnormal weight gain- Primary Morbid obesity with BMI of 50.0-59.9, adult (HCC) Morbid obesity Migraine with aura and without status migrainosus, not intractable Migraine with aura, without mention of intractable migraine without mention of status migrainosus Asthma, unspecified asthma severity, unspecified whether complicated, unspecified whether persistent Depression with anxiety Dysthymic disorder Encounter for contraceptive management, unspecified type Class 3 severe obesity due to excess calories without serious comorbidity with body mass index (BMI) of 50.0 to 59.9 in adult (HCC) Super obese Morbid obesity PCOS (polycystic ovarian syndrome) Polycystic ovaries Hyperinsulinemia Other specified hypoglycemia Central obesity Localized adiposity documented in this encounter Care Teams Cloud Solutions Architect Relationship Specialty Start Date End Date Cinthya Hatfield DO [address] [place] [address] PCP - General Family Medicine 01/29/24 documented as of this encounter
--- OUTSIDE RECORDS SUMMARY | 2024-09-17 06:13 | External Medical Summary | Summary of Care ---
Author Name Unknown Organization [facility] Address [address] [place] [address] Phone [phone] Care Team Providers Care Cloth Baler Name Role Phone Cinthya Hatfield DO Primary Care Provider [phone] Reason for Visit * Reason Onset Date Comments Pre-Op Testing 07/03/2024 Encounter Details Date Type Department Care Team (Latest Contact Info) Description 07/03/2024 12:45 PM EDT Pre-Admission Testing Pre Surgery [facility] [address], [place] [id number] [facility] [address] [place], [place] [id number] Pre-operative examination*; Class 3 severe obesity due to excess calories without serious comorbidity with body mass index (BMI) of 50.0 to 59.9 in adult (HCC); PCOS (polycystic ovarian syndrome); Hyperinsulinemia; Central obesity; Class 3 severe obesity due to excess calories without serious comorbidity with body mass index (BMI) of 60.0 to 69.9 in adult (HCC) Allergies Active Allergy Reactions Criticality Noted Date Comments Amoxicillin 11/23/2005 Diphenhydramine Other (Please comment) High 11/29/19 18 Cephalexin High 04/23/2019 Itchy, hives, throat closing, chest tightness. documented as of this encounter (statuses as of 07/03/2024) Medications Medication Sig Dispensed Refills Start Date [...] Active Escitalopram Oxalate 10 MG Oral Tablet (Lexapro)Indication s:Adjustment disorder with anxious mood Take 1 Tablet by mouth in the morning. 30 Tablet 2 06/25/2024 Active Ozempic (1 MG/DOSE) 4 MG/3ML Subcutaneous Solution Pen-injector (Semaglutide (1 MG/DOSE)) Inject 1 mg under the skin once a week. 3 mL 1 07/03/2024 Active Acetaminophen 500 MG Oral Tablet (Tylenol)Indication s:Class 3 severe obesity due to excess calories without serious comorbidity with body mass index (BMI) of 50.0 to 59.9 in adult (FORMERLY [facility]),PCOS (polycystic ovarian syndrome),Hyperinsu linemia,Central obesity,Class 3 severe obesity due to excess calories without serious comorbidity with body mass index (BMI) of 60.0 to 69.9 in adult (FORMERLY [facility]),Pre-operative examination take 2 tabs by mouth every 8 hours pain after surgery for 3 days 18 Tablet 07/03/2024 Active Additional Information Patient not taking.Reported on 07/03/2024 Ondansetron HCl 4 MG Oral TabletIndications:C lass 3 severe obesity due to excess calories without serious comorbidity with body mass index (BMI) of 50.0 to 59.9 in adult (FORMERLY [facility]),PCOS (polycystic ovarian syndrome),Hyperinsu linemia,Central obesity,Class 3 severe obesity due to excess calories without serious comorbidity with body mass index (BMI) of 60.0 to 69.9 in adult (FORMERLY [facility]),Pre-operative examination 1 tablet by mouth every 8 hours as needed for nausea after surgery. 30 Tablet 1 07/03/2024 Active Additional Information Patient not taking.Reported on 07/03/2024 Omeprazole 20 MG Oral Capsule Delayed Release (PriLOSEC)Indicatio ns:Class 3 severe obesity due to excess calories without serious comorbidity with body mass index (BMI) of 50.0 to 59.9 in adult (HCC),PCOS (polycystic ovarian syndrome),Hyperinsu linemia,Central obesity,Class 3 severe obesity due to excess calories without serious comorbidity with body mass index (BMI) of 60.0 to 69.9 in adult (HCC),Pre-operative examination Take 1 cap by mouth daily for 90 days after surgery. 90 Capsule 07/03/2024 Active Additional Information Patient not taking.Reported on 07/03/2024 documented as of this encounter (statuses as of 07/03/2024) Active Problems Problem Noted Date Diagnosed Date Pre-operative examination 07/03/2024 Class 3 severe obesity due t o excess calories without serious comorbidity with body mass index (BMI) of 60.0 to 69.9 in adult 07/03/2024 [facility] OTHER*[id number] 07/03/2024 Central obesity 06/15/2024 Hyperinsulinemia 09/26/2023 Left-sided low back pain with left-sided sciatic a 09/26/2023 Migraine with aura and witho ut status migrainosus, not intractable 11/24/2022 ROSANNE (generalized anxiety disorder) 11/24/2022 Super obese 05/28/2014 Overview: bmi= 49.69 05/28/14 PCOS (polycystic ovarian syndrome) 05/27/2012 Class 3 severe obesity due t o excess calories without serious comorbidity with body mass index (BMI) of 50.0 to 59.9 in adult 04/21/2012 documented as of this encounter (statuses as of 07/03/2024) Resolved Problems Problem Noted Date Diagnosed Date Resolved Date Migraine variant 05/18/2020 11/24/2022 Generalized abdominal pain 10/22/2017 0 11/24/2022 BMI 50.0-59.9, adult 10/22/2017 023 Overview: bmi= 53.70 10/22/17 Seizure disorder 10/22/2017 08/31/2022 Body mass index (BMI) of 50. 0 to 59.9 in adult 06/17/2017 10/22/2017 Overview: Per Obesity protocol #1 Cellulitis of external cheek, left 03/04/2015 03/14/2017 Sinus congestion 09/17/2012 03/14/2017 Chronic rhinitis 09/17/2012 03/14/2017 Irregular menses 05/27/2012 03/14/2017 Migraine variant 10/02/2010 11/24/2022 documented as of this encounter (statuses as of 07/03/2024) Immunizations Name Administration Dates Next Due COVID-19 mRNA, LNP-s, No Pre serve, 2-Dose Series (OpDemand) 08/29/2021,10/03/2020,09/12/2020 Hepatitis B, 20+ yrs 04/27/2022,12/15/2021,11/10 MMR [...] older)(Boostrix) 05/28/2014 documented as of this encounter Anesthesia Record Procedure Summary Procedure Name Responsible Anesthesiologist Anesthesia Start Time Anesthesia Stop Time LAPAROSCOPIC GASTRIC RESTRICTIVE PROCEDURE PARTIAL GASTRECTOMY PYLORUS PRESERVING SINGLE ANASTOMOSIS Events No events on file. Meds * Agents No agents on file. * Blood No blood administrations on file. Lines, Drains, and Airways No LDAs on file. documented in this encounter Social History Tobacco Use Types [...] on file documented as of this encounter Patient Instructions * Patient Instructions* Niko An CRNP - 07/03/2024 11:55 AM EDT [facility]: Contact # [phone] Directions to Surgical Suite in from the [place] Entrance The Surgical Waiting Room can be found in the [facility]. Enter through Main Lobby Entrance and the Waiting Room is directly in front of you. Proceed to check in and give them your name. Directions to Surgical Suite from the East Entrance Enter the East entrance and follow the hallway to the J elevator. Take the J elevator up to Level 1. Continue down the long hallway to the [facility]. The Surgical Waiting Room will be on your Right. Proceed to check in and give them your Name. Directions to Surgical Suite from the Parking Garage Enter the [facility] and proceed down the ariza to the left. At the end of the ariza, turn right. Continue down the long hallway to the main [facility]. The Surgical Waiting Room will be on your Right. Proceed to check in and give them your Name. THANK YOU FOR CHOOSING [facility]! PRE-OP PATIENT INFORMATION AND EDUCATION: MEDICATION INSTRUCTIONS: The day of surgery/procedure, you may TAKE the following medications with a sip of water up to 3 hours prior to your arrival time: -Lexapro -Singulair -Topamax STOP taking the following medications the noted number of days prior to surgery/procedure unless otherwise specified by your surgeon: You are prescribed Ozempic, a medication classified as a GLP-1 Agonist. This medication may be associated with delayed gastric emptying (delayed emptying of your stomach content into your intestine).Due to the delay in emptying your stomach you may experience symptoms such as abdominal discomfort/bloating, nausea and/or vomiting. These symptoms can increase your risks of potential complications associated with anesthesia. You will have the opportunity to discuss your symptoms the day of surgery when you will meet your anesthesia team and a plan of care is made. Please follow these recommendations based on whether you are experiencing symptoms or not to reducethe risk of potential complications associated with anesthesia: -You are taking a WEEKLY-dosed GLP-1 agonist HOLD your dose a minimum of 3 days prior to your procedure AND follow a CLEAR LIQUID diet for 24 hours before your procedure. INSTRUCTIONS FOR CLEAR LIQUID DIET 24 HOURS BEFORE YOUR PROCEDURE: -The day before your procedure, you MUST follow a clear liquid diet. A clear liquid diet includes water, soda, clear juices (without pulp), black coffee or tea (without milk/cream), jello (without anything added to it) and broth (without anything added to it). -The day of your procedure you may have clear liquids until 3 hours prior to your procedure's arrival time. Please follow surgeon's instructions regarding use of Aspirin, Coumadin, Plavix, Eliquis, and any other blood thinner including NSAIDs (non-steroidal anti- inflammatory drugs, eg, Advil, Ibuprofen, Motrin, Aleve, Naproxen); if you have any questions regarding your anticoagulation therapy please contact your surgeon's clinic. Please verify any proposed stoppage of your anticoagulation therapy with the agent's prescribing provider. 10 days prior to surgery/procedure Stop all Herbal supplements, Green Tea, Turmeric, Melatonin, CBD, THC, etc. Stop all Vitamins (including Vitamin E) 24 hours prior to surgery/procedure DO NOT consume any alcohol. DO NOT use medical marijuana. DO NOT smoke or use tobacco products of any kind after midnight prior to surgery. *Using any of these products may increase your risks of procedural complications. IF IT IS LESS THAN RECOMMENDED STOPPAGE TIME PLEASE STOP AT TIME OF NOTIFICATION. FASTING RECOMMENDATIONS: To reduce risk, it is important for all elective surgery patients to follow the specific fasting guidelines listed below. If you have received more stringent guidelines, please follow the MOST RESTRICTIVE guidelines that you have been provided. DO NOT EAT after midnight on the night prior to your surgery date. You are allowed to drink clear liquids up to two hours prior to arrival time to the hospital or surgery center. Examples of clear liquids include water, clear fruit juice without pulp, clear carbonated beverages, clear tea, and black coffee. Any drinks given by your surgical service take as directed. THE DAY BEFORE YOUR SURGERY: -Drink plenty of fluid the day before your surgery. Contact your surgeon's office if you develop any of the following within 2 weeks of surgery: A cold Infection Fever Shingles Chicken pox or exposure to chicken pox Open areas such as scrapes, cuts, serra or other skin conditions Rashes GENERAL INSTRUCTIONS FOR PREPARING FOR SURGERY: BATHING INSTRUCTIONS: Bathe the evening prior to and the morning of surgery/procedure. Cleanse your body using ONLY anti-bacterial soap (eg, Dial, Safeguard) or any specific soap/cleansers and instructions provided by your surgeon (eg, Chlorhexidine). -You should brush your teeth the morning of surgery. Do NOT apply any lotions, powders, sprays, creams, oils, make-up, or deodorants after bathing. No hairspray, or nail malay on fingers or toes. Day of surgery/procedure do not use tampons. If you wear contacts wear your eyeglasses if available otherwise bring your contact supplies with you to remove them prior to your surgery/procedure. If you wear glasses or dentures, please bring cases in which you can store them during your surgery. Please remove all piercings and jewelry and leave them at home. Wear comfortable and loose clothing. -Please leave all valuables at home. -If you use a CPAP and are staying overnight, please bring your mask. -If you use an assistive mobility device (walker, cane, etc), please label it with your name and bring to hospital. -An escort milk pickup truck driver is required if you are being discharged the same day of the surgery. You should have a responsible adult over the age of 18 [address] you home. This person should be present with youin the hospital at the time of discharge and for the first 24 hours after the surgery to support your needs. If you are taking a taxi home, you must have your responsible constitution party accompany you in the taxi ride home at the time of discharge. OR times subject to change. Please check voicemail messages the day/evening before your surgery forany updates. PRE-OP: You will be taken to the pre-op area where your vital signs (blood pressure, pulse and temperature)will be taken. Any preparations that need to be done will be done there. When it is time for your surgery, you will be taken to the operating room. PARENTS OF PEDIATRIC PATIENTS WILL BE ALLOWED TO STAY WITH THEIR CHILDREN UNTIL THEY ARE ESCORTED TO THE OPERATING ROOM OUTPATIENT SURGERY PATIENTS: After your surgery you will be taken to the Same Day Surgery Unit when you are awake and will go home from there. You will get instructions about your home care before you leave. Arrange to have someone drive you home from the hospital. You may not drive for 24 hours after anesthesia. You must havean adult stay with you at home for 24 hours after your operation. This is very important. If you are not able to comply with these guidelines, your Short Stay surgery cannot be done. ADMISSION PATIENTS: After your stay in the recovery area, you will be taken to your room. Your family may visit you in your room based on current visitation policy. If a next day discharge is expected, it is important to make arrangements for a milk pickup truck driver to take you home. Please be aware our visitation policies are subject to change Professionals, attendants, caregivers or family members are allowable visitors for patients with intellectual, developmental or cognitive disabilities, communication barriers or behavioral concerns. Because patients' and families' needs vary, they will be taken into account when applying visitation restrictions. ANESTHESIA INFORMATION This information has been prepared to help you and your family better understand the process of anesthesia, so that you may help make well-informed decisions about your care. This information is alsoprovided to guide your completion of the [facility] anesthesia consent form which addresses real, but infrequent, problems associated with anesthesia. IMPORTANT INFORMATION TO PREVENT YOUR SURGERY FROM BEING CANCELLED/ RESCHEDULED: --You are required to have a milk pickup truck driver to take you home whether you are admitted to the hospital following your surgery or not --You are required to have a responsible adult with you for the first 24 hours after surgery to support your needs Types of Anesthesia: Local Anesthesia Local anesthetic drugs (numbing drugs) are usually injected into the tissues to numb just the specific location of your body requiring minor surgery, such as an area of your hand or foot. Regional Anesthesia -Regional anesthesia involves the use of local anesthetics (numbing drugs) to numb larger areas of your body by blocking nerves to those areas. This is commonly referred to as a nerve block. Another way of performing regional anesthesia is by blocking nerves of the spinal cord by injecting numbing m edicines with great exactness around those nerves. This is called spinal or epidural anesthesia depending on exactly where the medication is injected. The type of regional anesthesia selected dependson the type of surgery and whether regional anesthesia is being done to help with pain after surgery or as a part of the anesthesia for surgery. You may remain awake, be sedated, or be given a general anesthetic depending on the type of surgery and the type of regional anesthesia performed Monitored Anesthesia Care (MAC) -Describes a range of sedation that can be given to a patient undergoing a procedure. The level of sedation usually depends on what is needed for the procedure being performed. A patient could be awake and aware of the procedure being performed but be relaxed and able to follow instructions as needed or may be unaware of what is happening and only rouse to significant stimulation. A patient may be able to speak, hear things around them, and answer questions and follow commands but is not in pain or anxious. A patient may experience varying depths of sedation during the procedure. The use of general anesthesia could result if this type of anesthesia is ineffective. General Anesthesia - Occurs by using a combination of medications to put a patient into a deep, sleep-like, unresponsive state for surgery. This is required for many surgical procedures. Under general anesthesia, a patient does not feel pain and is unaware of what is happening during the procedure. Systems in the body may not function normally while a patient is under general anesthesia. They are monitored by the anesthesia provider and may need to be assisted while a patient is under general anesthesia. For example, a breathing device may need to be placed in the airway to assist breathing and medications may need to be given to ensure that your blood pressure and heart rate remain normal. Risks of Anesthesia: Regional/Local/Nerve Blocks -Include but are not limited to, , cardiac or respiratory arrest, permanent complete paralysis, permanent nerve injury, seizure, spinal headache, backache, pain in buttocks and legs, infection, bleeding, leakage of spinal fluid, inadequate pain relief, bowel or bladder dysfunction, prolonged numbness or pain, temporary drop in blood pressure, or allergic reaction to the medications. Monitored Anesthesia Care (MAC) -Common risks include temporary dizziness, light-headedness, nausea and/or vomiting, and leakage ofintravenous fluid into the tissues with swelling or discoloration of the area or residual pain. Less common risks include, but are not limited to, , heart attack, permanent brain damage, stroke,pneumonia, blood clots, awareness, nerve stretch injury of your arm, neck or leg, permanent liver damage and allergic reaction to the medications. General Anesthesia -More common risks include temporary sore throat, pain in the neck or other muscles, dizziness, light-headedness, nausea and/or vomiting, and leakage of intravenous fluid into the tissues with swelling or discoloration of the area or residual pain. Less common risks include, but are not limited to,, heart attack, permanent brain damage, stroke, pneumonia, blood clots, irritation of the cornea of your eye, vision loss, loosened or broken teeth, or other oral injuries, awareness, nerve stretch injury of the arm, neck or leg, hoarseness, laryngospasm, permanent liver damage and allergic reaction to the medications. History of anesthesia complications: If you or a family member have had a complication related to anesthesia such as difficulty with placement of a breathing tube or a serious reaction to a medication administered for anesthesia, pleasetell your anesthesia provider. Having this information will help keep you safe while under anesthesia Nausea: A common side effect of anesthesia is nausea, but some patients do experience both nausea and vomiting. If you have experienced nausea or vomiting after anesthesia in the past, be sure to tell your anesthesia provider so medication can be given to help prevent it from happening again. Patient safety/consenting process: All surgical procedures and anesthetics have some small risks. They are dependent upon many factorsincluding the type of surgery and your medical condition. That is why it is important to know aboutany underlying medical problems, how they are treated and how they can be managed to reduce the risks of anesthesia and surgery. Thus, it is important for your anesthesia provider to ask detailed questions about your medical history, and to know what prescription medications you are taking, including dosages and schedules, as well as any over the counter or herbal medicines and supplements. You must notify the doctor of any of the following: -if you are or possibly -if you have any sensitivity to medications -present mental and physical condition -if recently consumed alcohol or non-clear liquids -if you are presently on psychiatric mood-altering drugs or other medications If you are a female of child-bearing age and you use any form of hormone-based contraception, please continue to use it and, in addition, use an alternative form of contraception, such as condoms andspermicide for a month after discharge from the hospital. This is because during the hospitalization you might receive one or more medications that may render hormone-based contraceptives ineffective for several days or weeks. The affected contraceptives include, but are not limited to, the usual contraceptive pills, most types of intrauterine devices, Depo-Provera shots, hormonal patches, and hormonal vaginal rings. If you are not sure, contact your primary care physician, your green feed attendant, or your surgeon to check if this warning applies to you. You may need to have invasive monitoring, which includes the insertion of catheters into your veinsand arteries. This is done to measure pressures, to take blood samples, and may be used in emergentsituations for intravenous access. This monitoring has risks including, but not limited to, injury to your arteries, lung collapse, bleeding, nerve injury as well as the risks related to anesthesia. An esophageal probe may be used to monitor your heart, this monitor has risks which include sore throat, hoarseness, difficulty with swallowing, loosened or broken teeth and esophageal injury. Major complications are rare but could include , respiratory distress, an abnormal heartbeat, infection, and bleeding. As part of the consent to administer anesthesia authorization you will discuss the following with the anesthesia doctor and his/her associates: -your present condition and diagnosis as it pertains to anesthesia or sedation administration -a description of the proposed anesthetic/sedation technique or procedure to be used -significant risks and benefits of the proposed anesthetic/sedation technique or procedure -any applicable alternatives, including their risks and benefits -if applicable, use of back-up method of contraception for 30 days after discharge -if applicable, the option of having no treatment and the potential results of this -if your procedure is in an outpatient surgery setting-the risk associated with having this procedure in this type of setting should be discussed as well as the potential need for transfer to the hospital if necessary Please be sure to have all questions that you have answered prior to signing the consent to administer anesthesia. You can make your care safer by being an active, informed patient. It is important that you are involved in your health care. Being a good patient does not mean being a silent one. If you have questions, problems, safety concerns or unmet needs, please let us know if you would like further clarification of the "Patient Rights and Responsibilities" as they pertain to you, or would like more information regarding our complaint and for grievance process, please call the site where you receive care and request to speak withthe patient advocate line. documented in this encounter Nursing Notes * Genevieve Kendrick CCMA - 07/03/2024 12:51 PM EDT Patient identified by: name/birthdate EKG obtained: done today - 07/03/2024 Patient was instructed to not get up on the exam table/exam chair until directed and assisted by their provider; patient is to remain seated in the chair/ wheelchair/ exam table/ exam chair for fall prevention and safety reasons. Patient is aware to have assistance to step down off exam table/exam chair with personnel. Patient voiced full comprehension of instructions. * Niko An, CARE NAVIGATOR - 07/03/2024 11:55 AM EDT [facility]: Contact # [phone] Directions to Surgical Suite in from the [place] Entrance The Surgical Waiting Room can be found in the Lobby of [facility]. Enter through Main Lobby Entrance and the Waiting Room is directly in front of you. Proceed to check in and give them your name. Directions to Surgical Suite from the East Entrance Enter the East entrance and follow the hallway to the J elevator. Take the J elevator up to Level 1. Continue down the long hallway to the main [facility] Lobby. The Surgical Waiting Room will be on your Right. Proceed to check in and give them your Name. Directions to Surgical Suite from the Parking Garage Enter the [facility] lobby and proceed down the ariza to the left. At the end of the ariza, turn right. Continue down the long hallway to the main [facility] Lobby. The Surgical Waiting Room will be on your Right. Proceed to check in and give them your Name. THANK YOU FOR CHOOSING [facility]! PRE-OP PATIENT INFORMATION AND EDUCATION: MEDICATION INSTRUCTIONS: The day of surgery/procedure, you may TAKE the following medications with a sip of water up to 3 hours prior to your arrival time: -Lexapro -Singulair -Topamax STOP taking the following medications the noted number of days prior to surgery/procedure unless otherwise specified by your surgeon: You are prescribed Ozempic, a medication classified as a GLP-1 Agonist. This medication may be associated with delayed gastric emptying (delayed emptying of your stomach content into your intestine).Due to the delay in emptying your stomach you may experience symptoms such as abdominal discomfort/bloating, nausea and/or vomiting. These symptoms can increase your risks of potential complications associated with anesthesia. You will have the opportunity to discuss your symptoms the day of surgery when you will meet your anesthesia team and a plan of care is made. Please follow these recommendations based on whether you are experiencing symptoms or not to reducethe risk of potential complications associated with anesthesia: -You are taking a WEEKLY-dosed GLP-1 agonist HOLD your dose a minimum of 3 days prior to your procedure AND follow a CLEAR LIQUID diet for 24 hours before your procedure. INSTRUCTIONS FOR CLEAR LIQUID DIET 24 HOURS BEFORE YOUR PROCEDURE: -The day before your procedure, you MUST follow a clear liquid diet. A clear liquid diet includes water, soda, clear juices (without pulp), black coffee or tea (without milk/cream), jello (without anything added to it) and broth (without anything added to it). -The day of your procedure you may have clear liquids until 3 hours prior to your procedure's arrival time. Please follow surgeon's instructions regarding use of Aspirin, Coumadin, Plavix, Eliquis, and any other blood thinner including NSAIDs (non-steroidal anti- inflammatory drugs, eg, Advil, Ibuprofen, Motrin, Aleve, Naproxen); if you have any questions regarding your anticoagulation therapy please contact your surgeon's clinic. Please verify any proposed stoppage of your anticoagulation therapy with the agent's prescribing provider. 10 days prior to surgery/procedure Stop all Herbal supplements, Green Tea, Turmeric, Melatonin, CBD, THC, etc. Stop all Vitamins (including Vitamin E) 24 hours prior to surgery/procedure DO NOT consume any alcohol. DO NOT use medical marijuana. DO NOT smoke or use tobacco products of any kind after midnight prior to surgery. *Using any of these products may increase your risks of procedural complications. IF IT IS LESS THAN RECOMMENDED STOPPAGE TIME PLEASE STOP AT TIME OF NOTIFICATION. FASTING RECOMMENDATIONS: To reduce risk, it is important for all elective surgery patients to follow the specific fasting guidelines listed below. If you have received more stringent guidelines, please follow the MOST RESTRICTIVE guidelines that you have been provided. DO NOT EAT after midnight on the night prior to your surgery date. You are allowed to drink clear liquids up to two hours prior to arrival time to the hospital or surgery center. Examples of clear liquids include water, clear fruit juice without pulp, clear carbonated beverages, clear tea, and black coffee. Any drinks given by your surgical service take as directed. THE DAY BEFORE YOUR SURGERY: -Drink plenty of fluid the day before your surgery. Contact your surgeon's office if you develop any of the following within 2 weeks of surgery: A cold Infection Fever Shingles Chicken pox or exposure to chicken pox Open areas such as scrapes, cuts, serra or other skin conditions Rashes GENERAL INSTRUCTIONS FOR PREPARING FOR SURGERY: BATHING INSTRUCTIONS: Bathe the evening prior to and the morning of surgery/procedure. Cleanse your body using ONLY anti-bacterial soap (eg, Dial, Safeguard) or any specific soap/cleansers and instructions provided by your surgeon (eg, Chlorhexidine). -You should brush your teeth the morning of surgery. Do NOT apply any lotions, powders, sprays, creams, oils, make-up, or deodorants after bathing. No hairspray, or nail malay on fingers or toes. Day of surgery/procedure do not use tampons. If you wear contacts wear your eyeglasses if available otherwise bring your contact supplies with you to remove them prior to your surgery/procedure. If you wear glasses or dentures, please bring cases in which you can store them during your surgery. Please remove all piercings and jewelry and leave them at home. Wear comfortable and loose clothing. -Please leave all valuables at home. -If you use a CPAP and are staying overnight, please bring your mask. -If you use an assistive mobility device (walker, cane, etc), please label it with your name and bring to hospital. -An escort milk pickup truck driver is required if you are being discharged the same day of the surgery. You should have a responsible adult over the age of 18 [address] you home. This person should be present with youin the hospital at the time of discharge and for the first 24 hours after the surgery to support your needs. If you are taking a taxi home, you must have your responsible constitution party accompany you in the taxi ride home at the time of discharge. OR times subject to change. Please check voicemail messages the day/evening before your surgery forany updates. PRE-OP: You will be taken to the pre-op area where your vital signs (blood pressure, pulse and temperature)will be taken. Any preparations that need to be done will be done there. When it is time for your surgery, you will be taken to the operating room. PARENTS OF PEDIATRIC PATIENTS WILL BE ALLOWED TO STAY WITH THEIR CHILDREN UNTIL THEY ARE ESCORTED TO THE OPERATING ROOM OUTPATIENT SURGERY PATIENTS: After your surgery you will be taken to the Same Day Surgery Unit when you are awake and will go home from there. You will get instructions about your home care before you leave. Arrange to have someone drive you home from the hospital. You may not drive for 24 hours after anesthesia. You must havean adult stay with you at home for 24 hours after your operation. This is very important. If you are not able to comply with these guidelines, your Short Stay surgery cannot be done. ADMISSION PATIENTS: After your stay in the recovery area, you will be taken to your room. Your family may visit you in your room based on current visitation policy. If a next day discharge is expected, it is important to make arrangements for a milk pickup truck driver to take you home. Please be aware our visitation policies are subject to change Professionals, attendants, caregivers or family members are allowable visitors for patients with intellectual, developmental or cognitive disabilities, communication barriers or behavioral concerns. Because patients' and families' needs vary, they will be taken into account when applying visitation restrictions. ~SEE ANESTHESIA EVENT FOR PRE-OP ANESTHESIA ASSESSMENT~ ~~~~~~~~~~~~~~~~~~~~~~~~~~~~~~~~~~~~~~~~~~~~~~~~~~~~ Patient identified by name/birthdate Optime case procedure confirmed with surgical consent Laterality confirmed as N/a Surgery date at time of Pre-Surgery Center Encounter: 08/04/2024 What procedure is patient having? Laparoscopic single anastomosis duodenal-ileal bypass, Upper Endoscopy, possible liver biopsy, possible staged procedure, possible open incision for PCOS, hyperinsulinemia, MO Anesthesia Consent pool notified: N/A In an emergency, is patient willing to accept blood products or blood transfusion? Yes Does Blood Bank order need placed? No. Anesthesia evaluation requested per case documentation. No Preop Eval Requested? No PATIENT EDUCATION SCREENING Education Screening: Patient Preoperative bathing instructions were reviewed with patient. Motivation Level: Asks Questions and Eager to Learn Language Barrier: No Physical Barrier: N/A Patient Preferred Learning Methods: Reading and Lecture LEARNING NEED: Printed Patient Education Given: Preop Information: Adult Persons present for education: Patient METHOD: One to One OUTCOME: State / Describe / Explain PATIENT INSTRUCTIONS GIVEN: General Preoperative Instructions Reviewed Medication Instructions Reviewed NPO Instructions Reviewed Verbalizes understanding of education: Yes COVID-19/Coronavirus Screening: Informant: Patient Have you been experiencing any symptoms of viral infection of the upper respiratory system (fever, cough, shortness of breath, myalgia, fatigue) in the last 16 days? No Symptoms started N/a Symptoms include none Symptom severity is N/a Additional details include: N/A In the last month, have you been in contact with someone who was confirmed or suspected to have Coronavirus/ COVID-19? No In the last month, have you been in contact with someone who was experiencing upper respiratory symptoms of viral infection? No Have you been diagnosed with COVID-19/Coronavirus? Yes If so, when were you given this diagnosis? 2019, 2021, patient denies residual s/sx, s/p vaccination x 3 doses Are you currently experiencing any residual symptoms? When did your symptoms resolve? No, N/a Has patient undergone Infectious Disease consultation for Coronavirus/ COVID-19? No Does patient require Infectious Disease consultation/referral? No Pre-Anesthesia Review of Systems, Health History and Education completed Signature: JUNO Cotto 07/03/2024 documented in this encounter Plan of Treatment Upcoming Encounters Date Type Department Care Team (Latest Contact Info) Description 07/03/2024 5:10 PM EDT Anticoagulation Pharmacy, [address] [address] [place] [facility] [address] [place] [address] Hyperinsulinemia*; PCOS (polycystic ovarian syndrome); Central obesity; Pre-operative examination; Class 3 severe obesity due to excess calories without serious comorbidity with body mass index (BMI) of 60.0 to 69.9 in adult (HCC); Class 3 severe obesity due to excess calories without serious comorbidity with body mass index (BMI) of 50.0 to 59.9 in adult (HCC) 07/07/2024 8:00 AM EDT Office Visit Dermatology [facility] [place] [address] [place] [address] Armando Balderas MD [address] [place] [address] 07/10/2024 5:10 PM EDT Anticoagulation Pharmacy, [place] [address] [place] [address] De[facility] [address] [facility] [place] [address] 07/17/2024 8:00 AM EDT [facility] [address] [place] [address] Lidya Gabriel MD [address], [place] [phone] 08/04/2024 7:45 AM EST Hospital En[place] [facility] [facility] [address] [place] [phone] Sarah Trejo MD [address] [place] [address] 08/04/2024 7:45 AM EST Anesthesia Event [place] [facility] [facility] [address] [place] [phone] Niko An CRNP [address], [place] [id number] 08/04/2024 7:45 AM EST - 08/04/2024 1:40 PM EST Surgery [place] [facility] [facility] [address] [place] [phone] Sarah Trejo MD [address], [place] [phone] LAPAROSCOPIC GASTRIC RESTRICTIVE PROCEDURE PARTIAL GASTRECTOMY PYLORUS PRESERVING SINGLE ANASTOMOSIS 08/21/2024 8:40 AM EST Nutrition Services Nutrition & Weight Management, [facility] [address] [place] [address] Anjana Saunders RDN [address] [place] [address] 08/21/2024 9:00 AM EST Office Visit Nutrition & Weight Management, [facility] [place] [address] Josie Dennison PA-C [address] [place] [address] 08/21/2024 11:45 AM EST Office Visit General Surgery, [facility] [address] [facility] [place] [address] Sarah Trejo MD [address] [place] [address] Scheduled Orders Name Type Priority Associated Diagnoses Orde r Schedule URINE SCREEN, POINT OF CARE (ENTER/EDIT) Point of Care Testing Routine Pre-operative examination Ordered: 07/03/2024 Scheduled Procedures Name Priority Associated Diagnoses Date/Ti [...] of 50.0 to 59.9 in adult ([facility]) Super obese Morbid obesity PCOS (polycystic ovarian syndrome) Polycystic ovaries Hyperinsulinemia Other specified hypoglycemia Central obesity Localized adiposity Pre-operative examination- Primary Preoperative examination, unspecified Class 3 severe obesity due to excess calories without serious comorbidity with body mass index (BMI) of 50.0 to 59.9 in adult ([facility]) PCOS (polycystic ovarian syndrome) Polycystic ovaries Hyperinsulinemia Other specified hypoglycemia Central obesity Localized adiposity Class 3 severe obesity due to excess calories without serious comorbidity with body mass index (BMI) of 60.0 to 69.9 in adult ([facility]) Hyperinsulinemia- Primary Other specified hypoglycemia PCOS (polycystic ovarian syndrome) Polycystic ovaries Central obesity Localized adiposity Pre-operative examination Preoperative examination, unspecified Class 3 severe obesity due to excess calories without serious comorbidity with body mass index (BMI) of 60.0 to 69.9 in adult ([facility]) Class 3 severe obesity due to excess calories without serious comorbidity with body mass index (BMI) of 50.0 to 59.9 in adult ([facility]) Class 3 severe obesity due to excess calories without serious comorbidity with body mass index (BMI) of 50.0 to 59.9 in adult ([facility]) Super obese Morbid obesity PCOS (polycystic ovarian syndrome) Polycystic ovaries Hyperinsulinemia Other specified hypoglycemia Central obesity Localized adiposity documented in this encounter Care Teams Cloth Baler Relationship Specialty Start Date End Date Cinthya Hatfield DO [address] [place] [address] PCP - General Family Medicine 01/29/24 documented as of this encounter
--- OUTSIDE RECORDS SUMMARY | 2024-09-17 06:13 | External Medical Summary | Summary of Care ---
Author Name Unknown Organization [facility] Address [address] [place] [address] Phone [phone] Care Team Providers Care [place] Former Machine Operator Name Role Phone Cinthya Hatfield DO Primary Care Provider Encounter Details Date Type Department Care Team (Latest Contact Info) Description 07/17/2024 8:00 AM EDT Telemedicine Nutrition & Weight Management, [place] [address] [place] [address] Lidya Gabriel MD [address] [place] [address] Abnormal weight gain*; Morbid obesity [...] as of this encounter (statuses as of 07/22/2024) Medications Medication Sig Dispensed Refills Start Date [...] Sodium 60 MG/0.6ML Injection Solution Prefilled Syringe (Lovenox)Indication s:Hyperinsulinemia, PCOS (polycystic ovarian syndrome),Central obesity,Pre-operati ve examination,Class 3 severe obesity due to excess [...] 07/03/2024 Active Azithromycin 250 MG Oral Tablet (Zithromax)Indicati ons:Bronchitis, complicated Take 2 tabs by mouth on the first day, then 1 tab daily on days two through five 6 Tablet 07/16/2024 07/21/2024 documented as of this encounter (statuses as of 07/22/2024) Active Problems Problem Noted Date Diagnosed Date Pre-operative examination 07/03/2024 [facility] OTHER*[id number] 07/03/2024 Central obesity 06/15/2024 Hyperinsulinemia 09/26/2023 Left-sided [...] as of this encounter (statuses as of 07/22/2024) Resolved Problems Problem Noted Date Diagnosed Date [...] as of this encounter (statuses as of 07/22/2024) Immunizations Name Administration Dates Next Due COVID-19 mRNA, LNP-s, No Pre serve, 2-Dose Series ([employer]) 08/29/2021,10/03/2020,09/12/2020 Hepatitis B, 20+ yrs 04/27/2022,12/15/2021,11/10 MMR [...] only visit. The patient agreed to participate. Length of call: 12 minutes Message was sent to patient outlining the [...] EST Hospital Encounter [facility] [address] [place] [phone] Sarah Trejo MD [address] [place] [address] 08/04/2024 7:45 AM EST Anesthesia Event [place] [facility] [address] [facility] [place] [address] Niko An CRNP [address] [place] [address] 08/04/2024 7:45 AM EST - 08/04/2024 1:40 PM EST Surgery [place] [facility] [facility] [address] [place] [phone] Sarah Trejo MD [address], [place] [phone] LAPAROSCOPIC GASTRIC RESTRICTIVE PROCEDURE PARTIAL GASTRECTOMY PYLORUS PRESERVING SINGLE ANASTOMOSIS 08/05/2024 5:10 PM EST [facility] [address] [place] [address] [place] [address] [place] [address] 08/21/2024 8:40 AM EST Nutrition Services Nutrition & Weight Management, [facility] [address] [place] [address] Anjana Saunders RDN [address] [place] [address] 08/21/2024 9:00 AM EST Office Visit Nutrition & Weight Management, [facility] [address] [place] [address] Josie Dennison PA-C [address] [place] [address] 08/21/2024 11:45 AM EST Office Visit General Surgery, [facility] [address] [place] [address] Sarah Trejo MD [address] [facility], [place] [phone] Scheduled Procedures Name Priority Associated Diagnoses Date/Ti [...] adiposity documented in this encounter Care Teams [place] Former Machine Operator Relationship Specialty Start Date End Date Cinthya Hatfield DO [address] [place] [address] PCP - General Family Medicine 01/29/24 documented as of this encounter
--- OUTSIDE RECORDS SUMMARY | 2024-09-17 06:13 | External Medical Summary | Summary of Care ---
Author Name Unknown Organization [facility] Address [address] [place] [address] Phone [phone] Care Team Providers Care Public Health Policy Analyst Name Role Phone EzequielCinthya rizo Jeremy OROZCO Primary Care Provider Reason for Visit * Reason Onset Date Comments Encounter Created in Error 07/16/2024 Encounter Details Date Type Department Care Team (Late st Contact Info) Description 07/03/2024 Orders Only Outcomes Research Department [address] [place] [address] Lopez Vieira CHRA Encounter created in error Allergies Active Allergy Reactions Criticality Noted Date Comments Amoxicillin 11/23/2005 Diphenhydramine Other (Please comment) High 11/29/19 18 Cephalexin High 04/23/2019 Itchy, hives, throat closing, chest tightness. documented as of this encounter (statuses as of 07/16/2024) Medications Medication Sig Dispensed Refills Start Date [...] (BMI) of 50.0 to 59.9 in adult ([facility]),PCOS (polycystic ovarian syndrome),Hyperinsu linemia,Central obesity,Class 3 severe obesity due to excess calories without serious comorbidity with body mass index (BMI) of 60.0 to 69.9 in adult ([facility]),Pre-operative examination take 2 tabs by mouth every 8 hours pain after surgery for 3 days 18 Tablet 07/03/2024 Active Additional Information Patient not taking.Reported on 07/03/2024 Ondansetron HCl 4 MG Oral TabletIndications:C lass 3 severe obesity due to excess calories without serious comorbidity with body mass index (BMI) of 50.0 to 59.9 in adult ([facility]),PCOS (polycystic ovarian syndrome),Hyperinsu linemia,Central obesity,Class 3 severe obesity due to excess calories without serious comorbidity with body mass index (BMI) of 60.0 to 69.9 in adult ([facility]),Pre-operative examination 1 tablet by mouth every 8 hours as needed for nausea after surgery. 30 Tablet 1 07/03/2024 Active Additional Information Patient not taking.Reported on 07/03/2024 Omeprazole 20 MG Oral Capsule Delayed Release (PriLOSEC)Indicatio ns:Class 3 severe obesity due to excess calories without serious comorbidity with body mass index (BMI) of 50.0 to 59.9 in adult ([facility]),PCOS (polycystic ovarian syndrome),Hyperinsu linemia,Central obesity,Class 3 severe obesity due to excess calories without serious comorbidity with body mass index (BMI) of 60.0 to 69.9 in adult ([facility]),Pre-operative examination Take 1 cap by mouth daily for 90 days after surgery. 90 Capsule 07/03/2024 Active Additional Information Patient not taking.Reported on 07/03/2024 Enoxaparin Sodium 60 MG/0.6ML Injection Solution Prefilled [...] days after procedure 12 mL 07/03/2024 Active documented as of this encounter (statuses as of 07/16/2024) Active Problems Problem Noted Date Diagnosed Date Pre-operative examination 07/03/2024 Class 3 severe obesity due t o excess calories without serious comorbidity with body mass index (BMI) of 60.0 to 69.9 in adult 07/03/2024 [facility] OTHER*[id number] 07/03/2024 Central obesity 06/15/2024 Hyperinsulinemia 09/26/2023 Left-sided [...] as of this encounter (statuses as of 07/16/2024) Resolved Problems Problem Noted Date Diagnosed Date [...] as of this encounter (statuses as of 07/16/2024) Immunizations Name Administration Dates Next Due COVID-19 [...] as of this encounter Progress Notes * Gilda Villanueva CHRA - 07/16/2024 9:14 AM EDT This encounter was created in error. 07/16/2024, 9:14 AM, KELSEY Levin documented in this encounter Plan of Treatment Upcoming Encounters Date Type Department Care Team (Latest Contact Info) Description 07/17/2024 8:00 AM EDT Telemedicine Nutrition & Weight Management, [place] [address] [place] [address] Lidya Gabriel MD [address] [place] [address] 08/04/2024 7:45 AM EST Hospital Encounter [place] [facility] OPERATING ROOM [facility] [address] [place] [phone] Sarah Trejo MD [address] [place] [address] 08/04/2024 7:45 AM EST Anesthesia Event OR [facility], OPERATING [place] [address] [place] [phone] Niko An CRNP [address] [place] [address] 08/04/2024 7:45 AM EST - 08/04/2024 1:40 PM EST Surgery OR [facility], OPERATING ROOM [facility] [address] [place] [phone] Sarah Trejo MD [address] [place], [place] [phone] LAPAROSCOPIC GASTRIC RESTRICTIVE PROCEDURE PARTIAL GASTRECTOMY PYLORUS PRESERVING SINGLE ANASTOMOSIS 08/05/2024 5:10 PM EST Anticoagulation Pharmacy, [address] [address] [address] [place] [address] [place] [address] 08/21/2024 8:40 AM EST Nutrition Services Nutrition & Weight Management, [facility] [address] [place] [address] Anjana Saunders RDN [address] [place] [address] 08/21/2024 9:00 AM EST Office Visit Nutrition & Weight Management, [facility] [address] [place] [address] Josie Dennison PA-C [address] [place] [address] 08/21/2024 11:45 AM EST Office Visit General Surgery, [facility] [address] [place] [address] Sarah Trejo MD [address] [place] [address] Scheduled Procedures Name Priority Associated Diagnoses Date/Ti [...] 05/28/2024 05/28/2014 Depression Screening 04/24/2025 04/24/2024, 04/23/20 PAP SMEAR-EVERY 2 YRS,AGES 18-100 04/23/2026 04/23/2024, [...] Other specified hypoglycemia Central obesity Localized adiposity Encounter Created In Error- Primary Class 3 severe obesity due to excess calories without serious comorbidity with body mass index (BMI) of 50.0 to 59.9 in adult (HCC) Super obese Morbid obesity PCOS (polycystic ovarian syndrome) Polycystic ovaries Hyperinsulinemia Other specified hypoglycemia Central obesity Localized adiposity documented in this encounter Care Teams Public Health Policy Analyst Relationship Specialty Start Date End Date Cinthya Hatfield DO [address] [facility] [place] [address] PCP - General Family Medicine 01/29/24 documented as of this encounter
--- OUTSIDE RECORDS SUMMARY | 2024-09-17 06:13 | External Medical Summary | Summary of Care ---
Author Name Unknown Organization [facility] Address [address] [place] [address] Phone [phone] Care Team Providers Care Coordinator Of Evaluation Name Role Phone Cinthya Hatfield DO Primary Care Provider Reason for Visit * Reason Comments Referral * Evaluate & Treat - Unlimited Visits (Within 3 days (urgent)) - Pending Review Specialty Diagnoses / Procedures Referred By Ashleigh bob Referred To Contact [facility] / Pharmacy Diagnoses Class 3 severe obesity due to excess calories without serious comorbidity with body mass index (BMI) of 50.0 to 59.9 in adult (HCC) PCOS (polycystic ovarian syndrome) Hyperinsulinemia Central obesity Class 3 severe obesity due to excess calories without serious comorbidity with body mass index (BMI) of 60.0 to 69.9 in adult (HCC) Pre-operative examination Jes Juarez PA-C [address] [place] [address] Referral ID Status Reason Start Date Expiration Date Visits Requested Visits Authorized [id number] Pending Review Specialty Services Required 12/30/2024 99 99 Encounter Details Date Type Department Care Team (Latest Contact Info) Description 07/03/2024 5:10 PM EDT Anticoagulation Pharmacy, [address] [address] [facility] [address] [place] [address] Pre-operative examination*; Hyperinsulinemia; PCOS (polycystic ovarian syndrome); Central obesity; Class 3 severe obesity due to excess calories without serious comorbidity with body mass index (BMI) of 60.0 to 69.9 in adult ([facility]); Class 3 severe obesity due to excess calories without serious comorbidity with body mass index (BMI) of 50.0 to 59.9 in adult ([facility]) Allergies Active Allergy Reactions Criticality Noted Date [...] (BMI) of 50.0 to 59.9 in adult ([facility]),PCOS (polycystic ovarian syndrome),Hyperinsu linemia,Central obesity,Class 3 severe obesity due to excess calories without serious comorbidity with body mass index (BMI) of 60.0 to 69.9 in adult ([facility]),Pre-operative examination take 2 tabs by mouth every 8 hours pain after surgery for 3 days 18 Tablet 07/03/2024 Active Additional Information Patient not taking.Reported on 07/03/2024 Ondansetron HCl 4 MG Oral TabletIndications:C lass 3 severe obesity due to excess calories without serious comorbidity with body mass index (BMI) of 50.0 to 59.9 in adult ([facility]),PCOS (polycystic ovarian syndrome),Hyperinsu linemia,Central obesity,Class 3 severe obesity due to excess calories without serious comorbidity with body mass index (BMI) of 60.0 to 69.9 in adult ([facility]),Pre-operative examination 1 tablet by mouth every 8 hours as needed for nausea after surgery. 30 Tablet 1 07/03/2024 Active Additional Information Patient not taking.Reported on 07/03/2024 Omeprazole 20 MG Oral Capsule Delayed Release (PriLOSEC)Indicatio ns:Class 3 severe obesity due to excess calories without serious comorbidity with body mass index (BMI) of 50.0 to 59.9 in adult ([facility]),PCOS (polycystic ovarian syndrome),Hyperinsu linemia,Central obesity,Class 3 severe obesity due to excess calories without serious comorbidity with body mass index (BMI) of 60.0 to 69.9 in adult ([facility]),Pre-operative examination Take 1 cap by mouth daily for 90 days after surgery. 90 Capsule 07/03/2024 Active Additional Information Patient not taking.Reported on 07/03/2024 Enoxaparin Sodium 60 MG/0.6ML Injection Solution Prefilled Syringe (Lovenox)Indication s:Hyperinsulinemia, PCOS (polycystic ovarian syndrome),Central obesity,Pre-operati ve examination,Class 3 severe obesity due to excess calories without serious comorbidity with body mass index (BMI) of 60.0 to 69.9 in adult ([facility]),Class 3 severe obesity due to excess calories without serious comorbidity with body mass index (BMI) of 50.0 to 59.9 in adult ([facility]) Inject the full contents of 1 syringe [...] to 69.9 in adult 07/03/2024 [facility] OTHER*[id number] 07/03/2024 Central obesity 06/15/2024 Hyperinsulinemia 09/26/2023 Left-sided [...] mRNA, LNP-s, No Pre serve, 2-Dose Series (Results Scorecard) 08/29/2021,10/03/2020,09/12/2020 Hepatitis B, 20+ yrs 04/27/2022,12/15/2021,11/10 MMR [...] as of this encounter Progress Notes * Kamaljit Chacko, [facility] - 07/03/2024 1:17 PM EDT Referral to follow patient for dvt prophylaxis [...] lovenox teach and would like to use [facility] [address] for the lovenox script. Patient is not currently taking an antiplatelet medication. I spent a total of 10-19 minutes (exact time 13 mins) on the date of service in preparation, delivery, and documentation of the care provided to Dina Acosta excluding any time spent in the performance of separately billed services or time spent by another provider/QHP. Kamaljit Chacko, PharmD, BCACP Clinical Pharmacist Medication Therapy Disease Management 07/03/2024, 1:21 PM documented in this encounter Miscellaneous Notes * Addendum Note - Kamaljit Chacko RPh - 07/03/2024 2:33 PM EDTAddended by: KAMALJIT CHACKO on: 07/03/2024 02:33 PM Modules accepted: Orders documented in this encounter Plan of Treatment Upcoming Encounters Date Type Department Care Team (Latest Contact Info) Description 07/07/2024 8:00 AM EDT Office Visit Dermatology [facility] [place] [address] [place] [address] Armando Balderas MD [address] [place] [address] 07/10/2024 5:10 PM EDT Anticoagulation Pharmacy, [address] [address] [place], [facility] [address] [place] [address] 07/17/2024 8:00 AM EDT Telemedicine Nutrition & Weight Management, [place] [address] [facility], [place] [phone] Lidya Gabriel MD [address] [facility], [place] [phone] 08/04/2024 7:45 AM EST Hospital Encounter [facility], [facility]PER[facility]OM [facility] [address] [facility] [place] [phone] Sarah Trejo MD [address] [facility], [place] [phone] 08/04/2024 7:45 AM EST Anesthesia Event OR [facility], OPERATING ROOM [facility] [address] [facility] [place] [phone] Niko An CRNP [address] [facility], [place] [phone] 08/04/2024 7:45 AM EST - 08/04/2024 1:40 PM EST Surgery OR [facility], OPERATING ROOM [facility] [address] [facility] [place] [phone] Sarah Trejo MD [address] [facility], [place] [phone] LAPAROSCOPIC GASTRIC RESTRICTIVE PROCEDURE PARTIAL GASTRECTOMY PYLORUS PRESERVING SINGLE ANASTOMOSIS 08/21/2024 8:40 AM EST Nutrition Services Nutrition & Weight Management, [facility] [address] [place] [address] Anjana Saunders RDN [address] [place] [address] 08/21/2024 9:00 AM EST Office Visit Nutrition & Weight Management, [facility] [address] [place] [address] Josie Dennison PA-C [address] [place] [address] 08/21/2024 11:45 AM EST Office Visit General Surgery, [facility] [address] [place] [address] Sarah Trejo MD [address] [place] [address] Scheduled Procedures Name Priority Associated Diagnoses Date/Ti [...] adiposity Pre-operative examination- Primary Preoperative examination, unspecified Hyperinsulinemia Other specified hypoglycemia PCOS (polycystic ovarian syndrome) Polycystic ovaries Central obesity Localized adiposity Class 3 severe obesity due to excess calories without serious comorbidity with body mass index (BMI) of 60.0 to 69.9 in adult (HCC) Class 3 severe obesity due to excess calories without serious comorbidity with body mass index (BMI) of 50.0 to 59.9 in adult (HCC) Class 3 severe obesity due to excess calories without serious comorbidity with body mass index (BMI) of 50.0 to 59.9 in adult (HCC) Super obese Morbid obesity PCOS (polycystic ovarian syndrome) Polycystic ovaries Hyperinsulinemia Other specified hypoglycemia Central obesity Localized adiposity documented in this encounter Care Teams Coordinator Of Evaluation Relationship Specialty Start Date End Date Cinthya Hatfield DO [address] [place] [address] PCP - General Family Medicine 01/29/24 documented as of this encounter
--- OUTSIDE RECORDS SUMMARY | 2024-09-17 06:13 | External Medical Summary | Summary of Care ---
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 documented as of this encounter (statuses as of 07/13/2024) Medications Medication Sig Dispensed Refills Start Date [...] of 50.0 to 59.9 in adult ([facility]),PCOS (polycystic ovarian syndrome),Hyperinsu linemia,Central obesity,Class 3 severe obesity due to excess calories without serious comorbidity with body mass index (BMI) of 60.0 to 69.9 in adult ([facility]),Pre-operative examination take 2 tabs by mouth every 8 hours pain after surgery for 3 days 18 Tablet 07/03/2024 Active Additional Information Patient not taking.Reported on 07/03/2024 Ondansetron HCl 4 MG Oral TabletIndications:C lass 3 severe obesity due to excess calories without serious comorbidity with body mass index (BMI) of 50.0 to 59.9 in adult ([facility]),PCOS (polycystic ovarian syndrome),Hyperinsu linemia,Central obesity,Class 3 severe obesity due to excess calories without serious comorbidity with body mass index (BMI) of 60.0 to 69.9 in adult ([facility]),Pre-operative examination 1 tablet by mouth every 8 hours as needed for nausea after surgery. 30 Tablet 1 07/03/2024 Active Additional Information Patient not taking.Reported on 07/03/2024 Omeprazole 20 MG Oral Capsule Delayed Release (PriLOSEC)Indicatio ns:Class 3 severe obesity due to excess calories without serious comorbidity with body mass index (BMI) of 50.0 to 59.9 in adult ([facility]),PCOS (polycystic ovarian syndrome),Hyperinsu linemia,Central obesity,Class 3 severe obesity due to excess calories without serious comorbidity with body mass index (BMI) of 60.0 to 69.9 in adult ([facility]),Pre-operative examination Take 1 cap by mouth daily [...] as of this encounter (statuses as of 07/13/2024) Active Problems Problem Noted Date Diagnosed Date Pre-operative examination 07/03/2024 Class 3 severe obesity due t o excess calories without serious comorbidity with body mass index (BMI) of 60.0 to 69.9 in adult 07/03/2024 [facility] OTHER*[id number] 07/03/2024 Central obesity 06/15/2024 Hyperinsulinemia 09/26/2023 Left-sided [...] as of this encounter (statuses as of 07/13/2024) Resolved Problems Problem Noted Date Diagnosed Date [...] as of this encounter (statuses as of 07/13/2024) Immunizations Name Administration Dates Next Due COVID-19 mRNA, LNP-s, No Pre serve, 2-Dose Series (Vayable) 08/29/2021,10/03/2020,09/12/2020 Hepatitis B, 20+ yrs 04/27/2022,12/15/2021,11/10 MMR [...] No 04/24/2024 Does the household have a [facility] source of income? (Household - [...] on file documented as of this encounter Plan of Treatment Upcoming Encounters Date Type Department Care Team (Latest Contact Info) Description 07/17/2024 8:00 AM EDT Telemedicine Nutrition & Weight Management, [place] [address] [address] Lidya Gabriel MD [address] [place] [id number] 08/04/2024 7:45 AM EST Hospital Encounter OR [facility], OPERATING ROOM [facility] [address] [place] [phone] Sarah Trejo MD [address] [facility] [place] [address] 08/04/2024 7:45 AM EST Anesthesia Event OR [facility], OPERATING ROOM [facility] [address] [place] [facility] [address] Niko An CRNP [address] [place] [facility] [place] [address] 08/04/2024 7:45 AM EST - 08/04/2024 1:40 PM EST Surgery OR [facility], OPERATING ROOM [facility], [facility] [address] [facility] [place] [phone] Sarah Trejo MD [address] [place] [address] LAPAROSCOPIC GASTRIC RESTRICTIVE PROCEDURE PARTIAL GASTRECTOMY PYLORUS PRESERVING SINGLE ANASTOMOSIS 08/05/2024 5:10 PM EST Anticoagulation [place] [address] [place] [address] [place] [address] [place] [address] 08/21/2024 8:40 AM EST Nutrition Services Nutrition & Weight Management, [facility] [address] [email or web address] [place] [address] Anjana Saunders RDN [address] [place] [address] 08/21/2024 9:00 AM EST Office Visit Nutrition & Weight Management, [facility] [address] [place] [address] Josie Dennison PA-C [address] [place] [address] 08/21/2024 11:45 AM EST Office Visit General Surgery, [facility] [address] [place] [address] Sarah Trejo MD [address] [facility] [place] [address] Scheduled Orders Name Type Priority Associated Diagnoses Orde r Schedule MYCODE SUBSEQUENT ADULT Lab Routine [employer] Other*[id number] Every 6 Months for 2 Occurrences starting 07/13/2024 until 08/02/2025 Scheduled Procedures Name Priority Associated Diagnoses Date/Ti [...] Other specified hypoglycemia Central obesity Localized adiposity [employer] [facility] Other*[id number] Class 3 severe obesity due to excess calories without serious comorbidity with body mass index (BMI) of 50.0 to 59.9 in adult (HCC) Super obese Morbid obesity PCOS (polycystic ovarian syndrome) Polycystic ovaries Hyperinsulinemia Other specified hypoglycemia Central obesity Localized adiposity documented in this encounter Care Teams Business [employer] Teacher Relationship Specialty Start Date End Date Cinthya Hatfield DO [address] [place] [address] PCP - General Family Medicine 01/29/24 documented as of this encounter
--- OUTSIDE RECORDS SUMMARY | 2024-09-17 06:13 | External Medical Summary ---
Author Name Unknown Address Unknown Organization : Laboratory Report Ordering Provider Test Date Status ADWOA TANG 08/04/2024 14:37:21 Final Observation Date Value Abnormality Reference (Units ) Status Glucose Point of Care 08/04/2024 14:37:21 149 Above high normal 70-120 (mg/dL) Final Performing Location
--- OUTSIDE RECORDS SUMMARY | 2024-09-17 06:13 | External Medical Summary | Summary of Care ---
Author Name Unknown Organization [facility] Address [address] [place] [address] Phone [phone] Care Team Providers Care Electric Switch Tester Name Role Phone Cinthya Hatfield DO Primary Care Provider Reason for Visit * Reason Comments NEW PATIENT Kimani consultation. * Evaluate & Treat - Unlimited Visits (Within 30 days (routine)) - Pending Review Specialty Diagnoses / Procedures Referred By Ashleigh bob Referred To Contact General Surgery Diagnoses Class 3 severe obesity due to excess calories without serious comorbidity with body mass index (BMI) of 60.0 to 69.9 in adult (HCC) Enoc Nugent DO [address] [place] [address] Phone: tel: fax: Sarah Trejo MD [address] [facility] [place] [address] Phone: tel: fax: Referral ID Status Reason Start Date Expiration Date Visits Requested Visits Authorized [id number] Pending Review Specialty Services Required 06/09/[phone] Encounter Details Date Type Department Care Team (Late st Contact Info) Description 06/12/2024 2:30 PM EDT Office Visit General Surgery, [facility] [address] [facility] [place] [address] Sarah Trejo MD [address] [place] [address] Class 3 severe obesity due to excess calories without serious comorbidity with body mass index (BMI) of 50.0 to 59.9 in adult (HCC)*; Super obese; PCOS (polycystic ovarian syndrome); Hyperinsulinemia; Central obesity Allergies Active Allergy Reactions Criticality Noted Date Comments Amoxicillin 11/23/2005 Diphenhydramine Other (Please comment) High 11/29/19 18 Cephalexin High 04/23/2019 Itchy, hives, throat closing, chest tightness. documented as of this encounter (statuses as of 07/30/2024) Medications Montelukast Sodium 10 MG Oral Tablet (Singulair) Take 1 Tablet by mouth in the morning. 90 Tablet 3 4 Active Norgestimate-Eth Estradiol 0.25-35 MG-MCG Oral Tablet (Sprintec 28)Indications:P COS (polycystic ovarian syndrome) Take 1 Tablet by mouth in the morning. In the morning.. 84 Tablet 3 4 Active Topiramate 25 MG Oral Tablet (Topamax) Take 1 Tablet by mouth in the morning and 1 Tablet at noon and 1 Tablet in the evening. 90 Tablet 2 4 Active Excedrin Migraine 250-250-65 MG Oral Tablet (Aspirin-Acetami nophen-Caffeine) Take 1 Tablet by mouth 3 times a day as needed for Migraine. 1 07/03/20 24 Discontinu ed(Medicat ion List Clean Up) Escitalopram Oxalate 10 MG Oral Tablet (Lexapro)Indicat ions:Adjustment disorder with anxious mood Take 1 Tablet by mouth in the morning. 30 Tablet 5 3 06/24/20 24 Discontinu ed(Refill) Fluorometholone 0.1 % Ophthalmic Suspension (FML) INSTILL 1 DROP INTO AFFECTED EYE(S) 4 TIMES DAILY FOR 2 WEEKS 4 06/16/20 24 Discontinu ed(Patient preference /discontin uation) Wegovy 0.5 MG/0.5ML Subcutaneous Solution Auto-injector ([facility]) Inject 0.5 mg (1 pen) under the skin once a week. 2 mL 3 4 06/16/20 24 Discontinu ed(Patient preference /discontin uation) Semaglutide(0.25 or 0.5MG/DOS) 2 MG/3ML Solution Pen-injector (Ozempic) Inject 0.5 mg under the skin once a week. 9 mL 2 06/01/2024 1:08 PM EDT 4 06/22/20 24 Discontinu ed(Refill) documented as of this encounter (statuses as of 07/30/2024) Active Problems Problem Noted Date Diagnosed Date Pre-operative examination 07/03/2024 JOHNSON RESEARCH OTHER*[id number] 07/03/2024 Central obesity 06/15/2024 Super obese 06/12/2024 [...] as of this encounter (statuses as of 07/30/2024) Resolved Problems Problem Noted Date Diagnosed Date [...] as of this encounter (statuses as of 07/30/2024) Immunizations Name Administration Dates Next Due COVID-19 [...] No 04/24/2024 Does the household have a [facility] source of income? (Household - for ages [...] ages 0-17 years) Not on file 04/24/2024 Comments No Sex and Gender Information Value Date Recorded Sex Assigned at Female 06/19/2019 1:31 PM EDT Legal Sex Female 7:09 AM EST Gender Identity Female 06/19/2019 1:31 PM EDT Sexual Orientation Straight 04/22/2019 1: 43 PM EDT documented as of this encounter Last Filed Vital Signs Vital Sign Reading Time Taken Comments Blood Pressure 141/74 06/12/2024 2:46 PM EDT Pulse 66 06/12/2024 2:46 PM EDT Temperature - - Respiratory Rate - - Oxygen Saturation - - Inhaled Oxygen Concentration - - Weight 174.6 kg (385 lb) 06/12/2024 2:46 PM EDT Height - - Body Mass Index 55.24 05/01/2024 12:07 PM EDT documented in this encounter Progress Notes * Sarah Trejo MD - 06/12/2024 2:54 PM EDT Images from the original note were not included. [facility] CLINIC VISIT AT [facility] [address] DATE: 06/12/24 Dina Acosta [id number] 33 year old PCP: Cinthya Hatfield DO Consult requested by: Rachael Cortez RDN CC: Dina Acosta comes to see me in Bariatric Surgical Clinic for evaluation of morbid obesity. HPI: This patient has been successfully treated in the [facility] for the past 5 [...] ECG Ventricular Rate: 70 Atrial Rate: 70 RI Interval: 136 QRS Duration: 80 QT/QTc: 390/421 ms P-R-T Warrior: 27 : 20 : 25 degrees US [...] obscured by overlying bowel. Limited visualized portions of parenchyma demonstrate no discrete focal lesion or pancreatic [...] mucosa. -- Negative for intestinal metaplasia. Current Outpatient Medications Medication Sig Dispense Refill Excedrin Migraine 250-250-65 MG Oral Tablet (Nnlvppz-Rotgbywsunzsx-Ytmzukio) Take 1 Tablet by mouth3 times a day as needed for Migraine. Escitalopram Oxalate 10 MG Oral Tablet (Lexapro) Take 1 Tablet by mouth in the morning. 30 Tablet 5 Montelukast Sodium 10 MG Oral Tablet (Singulair) Take 1 Tablet by mouth in the morning. 90 Tablet 3 Fluorometholone 0.1 % Ophthalmic Suspension (FML) INSTILL 1 DROP INTO AFFECTED EYE(S) 4 TIMES DAILYFOR 2 WEEKS (Patient not taking: Reported on 05/01/2024) Norgestimate-Eth Estradiol 0.25-35 MG-MCG Oral Tablet (Sprintec 28) Take 1 Tablet by mouth in the morning. In the morning.. 84 Tablet 3 Topiramate 25 MG Oral Tablet (Topamax) Take 1 Tablet by mouth in the morning and 1 Tablet at noon and 1 Tablet in the evening. 90 Tablet 2 Wegovy 0.5 MG/0.5ML Subcutaneous Solution Auto-injector (Semaglutide-Weight Management) Inject 0.5 mg (1 pen) under the skin once a week. (Patient not taking: Reported on 05/01/2024) 2 mL 3 Semaglutide(0.25 or 0.5MG/DOS) 2 MG/3ML Solution Pen-injector (Ozempic) Inject 0.5 mg under the skin once a week. 9 mL 2 No current facility-administered medications for this visit. Vitamins and Minerals: Vitamin D and Vitamin B12 po 1000 mcg Allergies as of 06/12/2024 - Reviewed 06/12/2024 Allergen Reaction Noted Diphenhydramine Other (Please comment) 11/28/2017 Keflex [cephalexin] 04/23/2019 Amoxicillin 11/23/2005 Past Medical History: Diagnosis Date Anxiety ROSANNE (generalized anxiety disorder) 11/24/2022 Gastritis Migraine headache Migraine with aura and without status migrainosus, not intractable 11/24/2022 PCOS (polycystic ovarian syndrome) 05/27/2012 Seizures (HCC) sees Dr Gutierrez, not on any seizure medication Past Surgical History: Procedure Laterality Date EGD, FLEXIBLE, DIAGNOSTIC 10/14/2018 focal intestinal metaplasia, mild gastric irritation, repeat 1 yr/[facility] EGD, FLEXIBLE, DIAGNOSTIC 11/26/2019 mild gastric irritation, repeat 5 yrs / [facility] EGD, FLEXIBLE, DIAGNOSTIC N/A 05/01/2024 ESOPHAGOGASTRODUODENOSCOPY (EGD), FLEXIBLE, TRANSORAL, DIAGNOSTIC performed by Matthew Solomon MD at OR [facility] REMOVE FOOT TENDON LESION Left 07/28/2021 EXCISION LESION TENDON FOOT performed by Rowena Mckee DPM at [facility] REMOVE FOOT TENDON LESION Left 11/30/2022 EXCISION LESION TENDON FOOT performed by Rowena Mckee DPM at OR [facility] REMOVE TONSILS & ADENOIDS, AGE 12+ Bilateral 06/21/2015 TONSILLECTOMY AND ADENOIDECTOMY AGE 12 OR OVER performed by Remberto Pennington DO at [place] [facility] Social History Socioeconomic History Marital status: Single [...] History Narrative Lives with grandparents. 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 Social Determinants of Health Financial Resource [...] Stability Do you currently live in a halfway or have no steady place to sleep [...] ages0-17 years): Not on file Family History Problem Relation Name Age of Onset Diabetes Sister Diabetes Grandmother (Maternal) Diabetes Grandfather (Maternal) Heart Disorder Grandfather (Maternal) NV Family history non contributory Psychosocial Current smoker within 1 year? No History of tobacco use? No Using nicotine replacement? No Current ETOH Use? Yes, currently less than 2 drinks per month Substance Abuse None Functional health status? 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 REVIEW OF SYSTEMS: Endocrine Diabetes Mellitis? [...] within one year: 420 lbs; Date: 12/25/23 Blood pressure 141/74, pulse 66, weight (!) 174.6 kg (385 lb), not currently ., Body mass index is 55.24 kg/m. General: Alert and appropriate. Well-appearing and [...] edema IMPRESSION: 1) Body mass index is 55.24 kg/m. 2) Obesity related comorbid conditions include POLYCYSTIC OVARIAN DISEASE PLAN: 1) Checklist from most recent Bariatric Medical Clinic Visit Documented in GI Nutrition Documentation Flowsheet: Done, Normal 2) Schedule to following diagnostic tests ... Follow up visit in Bariatric surgical for preop H&P Preop EKG (current on file >1 yr old) 3) Patient Education Material Did patient receive HELP card? Yes 4) We discussed the surgical treatment options for the management of obesity including gastric bypass,sleeve gastrectomy, single anastomosis duodeno-ileal bypass with sleeve gastrectomy (ALVARO-S) and biliopancreatic diversion with or without duodenal switch. We reviewed the benefits and limitations oflaparoscopy versus open incisions. We reviewed the MBSAQIP calculator with respect to expected weight loss and BMI filter changer a year period postoperatively. We also reviewed the 30 day postoperativecomplications as predicted MBSAQIP risk calculator. All questions and concerns were addressed at this visit. She seems to understand and at this time would like to proceed with lap ALVARO-S. I spent a total of 60 min [...] been discussed with the patient and or sales service representative who seem to understand and agree [...] includes following up with our service in [place] at [facility] for any and all post operative complications [...] discussed with the patient or the patient's sales service representative. No promises or guarantees have been [...] nausea, vomiting, or abdominal pain possibly requiring jail medications. Bleeding possible requiring transfusion of blood [...] be given at preop visit. Omeprazole Zofran 4) Maya-operative multi-modal pain Control to include: Order APAP (Tylenol) 975mg PO once Gabapentin 300 mg PO once 5) Hold anticoagulants: N/A. 6) Hold all GERALDO Inhibitors and Angiotensin receptor blockers for 72 hours prior to surgery. NOT Applicable (patient on NO GERALDO Inhibitors or ARBS) 7) Hold all SGLT2 Inhibitors for 72 hours prior to surgery. NOT Applicable (patient on NO SGLT2 inhibitors) 8) PreOp EKG? Yes BMI >50 9) Preop Cardiology evaluation; Cardiology consult for 3 or more risk factors; Not Indicated Not Indicated 10) VTE Risk: Does the patient [...] Order Perioperative SBE prophylaxis (See Smart Set #[id number]): N/A 18) Pacemaker clinic evaluation perioperatively: N/A 19) Bring own CPAP/BiPAP mask and tubing from home if desired: N/A 20) Clip and prep surgical site: N/A 21) Preop orders placed in [facility] with H&P: NO 22) Pre-anesthesia orders placed: NO 23) Consent completed: YES; Date 06/12/24 24) Patient instruction sheet completed: YES 25) Postop Day #1 Discharge Candidate? Is the patient less than 60 years of age? YES Does the patient live within 90 minutes of the hospital? YES Is the patient committed to calling with any clinical problems and returning to [facility] if problems develop or they are advised [...] Day #1 Discharge Candidate at this time. Sarah Trejo M.D. Minimally Invasive Foregut and Bariatric Surgeon [facility] Office documented in this encounter Nursing Notes * Yosvany Griggs MED ASSIST - 06/12/2024 2:48 PM EDT Chief Complaint Patient presents with NEW PATIENT Kimani consultation. Verified patient. Patient is here with her grandmother today. documented in this encounter Plan of Treatment Upcoming Encounters Date Type Department Care Team (Latest Contact Info) Description 08/04/2024 7:45 AM EST Hospital Encounter [place] [facility], OPERATING ROOM [facility] [address] [place] [facility] [phone] Sarah Trejo MD [address] [place] [address] 08/04/2024 7:45 AM EST Anesthesia Event OR [facility], OPERATING ROOM [facility] [address] [place] [facility] [address] Niko An CRNP [address] [place] [facility] [address] 08/04/2024 7:45 AM EST - 08/04/2024 1:20 PM EST Surgery OR [facility], OPERATING ROOM [facility] [address] [place] [facility] [address] Sarah Trejo MD [address] [facility] [place] [address] LAPAROSCOPIC GASTRIC RESTRICTIVE PROCEDURE PARTIAL GASTRECTOMY PYLORUS PRESERVING SINGLE ANASTOMOSIS 08/05/2024 5:10 PM EST Anticoagulation Pharmacy, [place] [address] [place] [address] [facility] [address] [place] [address] 08/21/2024 8:40 AM EST Nutrition Services Nutrition & Weight Management, [facility] [address] [facility] [place] [address] Anjana Saunders RDN [address] [place] [address] 08/21/2024 9:00 AM EST Office Visit Nutrition & Weight Management, [facility] [address] [facility] [place] [address] Josie Dennison PA-C [address] [facility] [place] [address] 08/21/2024 11:45 AM EST Office Visit General Surgery, [facility] [address] [facility] [place] [address] Sarah Trejo MD [address] [place] [address] 09/01/2024 10:20 AM EST Telemedicine Nutrition & Weight Management, [place] [address] [place], [place] [id number] Dina Urbano CRNP [address] [place] [address] 09/01/2024 1:50 PM EST Telemedicine Nutrition & Weight Management, [facility] [address] [facility] [place] [address] Anjana Saunders RDN [address] [facility] [place] [address] Scheduled Procedures Name Priority Associated Diagnoses Date/Ti [...] (BMI) of 50.0 to 59.9 in adult (HCC)- Primary Super obese Morbid obesity PCOS (polycystic ovarian [...] adiposity documented in this encounter Care Teams Electric Switch Tester Relationship Specialty Start Date End Date Cinthya Hatfield DO [address] [place] [address] PCP - General Family Medicine 01/29/24 documented as of this encounter
--- OUTSIDE RECORDS SUMMARY | 2024-09-17 06:13 | External Medical Summary | Summary of Care ---
Author Name Unknown Organization [facility] Address [address] [place] [address] Phone [phone] Care Team Providers Care Cdl Truck Driver Name Role Phone Cinthya Hatfield DO Primary Care Provider Reason for Visit * Reason Comments Acute Encounter Details Date Type Department Care Team (Late st Contact Info) Description 07/16/2024 11:00 AM EDT Telemedicine Family Medicine [address] [phone] Markie Portillo MD [address] [place] [address] [place] [address] Bronchitis, complicated* Allergies Active Allergy Reactions Criticality Noted Date [...] Norgestimate-Eth Estradiol 0.25-35 MG-MCG Oral Tablet (Sprintec 28)Indications:PCO S (polycystic ovarian syndrome) Take 1 Tablet by [...] of 60.0 to 69.9 in adult ([facility]),Class 3 severe obesity due to excess calories without serious comorbidity with body mass index (BMI) of 50.0 to 59.9 in adult ([facility]) Inject the full contents of 1 syringe (60 mg) under the skin every 12 hours for 10 days after procedure 12 mL 07/03/2024 Active Azithromycin 250 MG Oral Tablet (Zithromax)Indicat ions:Bronchitis, complicated Take 2 tabs by mouth on the first day, then 1 tab daily on days two through five 6 Tablet 07/16/2024 4 Active Acetaminophen 500 MG Oral Tablet (Tylenol)Indicatio ns:Class 3 severe obesity due to excess calories without serious comorbidity with body mass index (BMI) of 50.0 to 59.9 in adult ([facility]),PCOS (polycystic ovarian syndrome),Hyperins ulinemia,Central obesity,Class 3 severe obesity due to excess calories without serious comorbidity with body mass index (BMI) of 60.0 to 69.9 in adult ([facility]),Pre-operativ e examination take 2 tabs by mouth every 8 hours pain after surgery for 3 days 18 Tablet 07/03/2024 4 Discontinue d(Patient preference/ discontinua tion) Ondansetron HCl 4 MG Oral TabletIndications: Class 3 severe obesity due to excess calories without serious comorbidity with body mass index (BMI) of 50.0 to 59.9 in adult ([facility]),PCOS (polycystic ovarian syndrome),Hyperins ulinemia,Central obesity,Class 3 severe obesity due to excess calories without serious comorbidity with body mass index (BMI) of 60.0 to 69.9 in adult ([facility]),Pre-operativ e examination 1 tablet by mouth every 8 hours as needed for nausea after surgery. 30 Tablet 1 07/03/2024 Discontinue d(Patient preference/ discontinua tion) Omeprazole 20 MG Oral Capsule Delayed Release (PriLOSEC)Indicati ons:Class 3 severe obesity due to excess calories without serious comorbidity with body mass index (BMI) of 50.0 to 59.9 in adult ([facility]),PCOS (polycystic ovarian syndrome),Hyperins ulinemia,Central obesity,Class 3 severe obesity due to excess calories without serious comorbidity with body mass index (BMI) of 60.0 to 69.9 in adult ([facility]),Pre-operativ e examination Take 1 cap by mouth daily for 90 days after surgery. 90 Capsule 07/03/2024 Discontinue d(Patient preference/ discontinua tion) documented as of this encounter (statuses as of 07/16/2024) Active Problems Problem Noted Date Diagnosed Date Pre-operative examination 07/03/2024 JOHNSON RESEARCH OTHER*[id number] 07/03/2024 Central obesity 06/15/2024 Hyperinsulinemia 09/26/2023 Left-sided [...] mRNA, LNP-s, No Pre serve, 2-Dose Series ([employer]) 08/29/2021,10/03/2020,09/12/2020 Hepatitis B, 20+ yrs 04/27/2022,12/15/2021,11/10 MMR [...] as of this encounter Progress Notes * Pilgram, Markie A, MD - 07/16/2024 10:58 AM EDT Patient location: HOME. I was in a hospital or clinic location. After connecting through televideo,patient was verified with two unique identifiers. Patient (or authorized legal hvac sales representative) was then informed that this was a Telemedicine visit and being conducted confidentially over secure lines. Methods to assure confidentiality were taken. Patient acknowledged consent and understanding of pr ivacy and security of the Telemedicine visit. The patient agreed to participate. Dina has surgeryscheduled 07/31 and developed cough, congestion, chest tightness after being around some people whowere sick. Denies nausea, vomiting, or diarrhea. Patient Active Problem List Diagnosis Class 3 severe obesity due to excess calories without serious comorbidity with body mass index (BMI) of 50.0 to 59.9 in adult (HCC) PCOS (polycystic ovarian syndrome) Migraine with aura and without status migrainosus, not intractable ROSANNE (generalized anxiety disorder) Hyperinsulinemia Left-sided low back pain with left-sided sciatica Central obesity Pre-operative examination JOHNSON RESEARCH OTHER*[id number] Review of patient's allergies indicates: Allergen Reactions Diphenhydramine Other (Please comment) Keflex [Cephalexin] Itchy, hives, throat closing, chest tightness. Amoxicillin A: Bronchitis, complicated (Primary) - Azithromycin 250 MG Oral Tablet (Zithromax); Take 2 tabs by mouth on the first day, then 1 tab daily on days two through five Follow Up: Return if symptoms worsen or fail to improve. documented in this encounter Plan of Treatment Upcoming Encounters Date Type Department Care Team (Latest Contact Info) Description 07/17/2024 8:00 AM EDT [facility] [address] [place], [place] [phone] Lidya Gabriel MD [address] [place] [address] 08/04/2024 7:45 AM EST [facility] [address] [facility] [place] [address] Sarah Trejo MD [address] [place] [facility] [address] 08/04/2024 7:45 AM EST Anesthesia Event OR [facility], OPERATING ROOM [facility] [address] [facility] [place] [address] Niko An CRNP [address] [facility] [place] [address] 08/04/2024 7:45 AM EST - 08/04/2024 1:40 PM EST Surgery OR [facility], OPERATING ROOM [facility] [address] [facility] [phone] Sarah Trejo MD [address] [facility] [place] [address] LAPAROSCOPIC GASTRIC RESTRICTIVE PROCEDURE PARTIAL GASTRECTOMY PYLORUS PRESERVING SINGLE ANASTOMOSIS 08/05/2024 5:10 PM EST Anticoagulation [place] [address] [place] [address] [place] [address] [place] [address] 08/21/2024 8:40 AM EST Nutrition Services Nutrition & Weight Management, [facility] [address] [facility] [place] [address] Anjana Saunders, HEATHER [address] [place] [address] 08/21/2024 9:00 AM EST Office Visit Nutrition & Weight Management, [facility] [address] [place] [address] Josie Dennison PA-C [address] [place] [address] 08/21/2024 11:45 AM EST Office Visit General Surgery, [facility] [address] [place] [address] Sarah Trejo MD [address] [facility] [place] [address] Scheduled Procedures Name Priority Associated Diagnoses Date/Ti [...] Other specified hypoglycemia Central obesity Localized adiposity Bronchitis, complicated- Primary Bronchitis, not specified as acute or chronic Class 3 severe obesity due to excess calories without serious comorbidity with body mass index (BMI) of 50.0 to 59.9 in adult (HCC) Super obese Morbid obesity PCOS (polycystic ovarian syndrome) Polycystic ovaries Hyperinsulinemia Other specified hypoglycemia Central obesity Localized adiposity documented in this encounter Care Teams Cdl Truck Driver Relationship Specialty Start Date End Date Cinthya Hatfield DO [address] [place] [address] PCP - General Family Medicine 01/29/24 documented as of this encounter
--- OUTSIDE RECORDS SUMMARY | 2024-09-17 06:13 | External Medical Summary ---
Author Name Unknown Address Unknown Organization : Laboratory Report Ordering Provider Test Date Status ADWOA TANG 08/04/2024 09:51:47 Final Observation Date Value Abnormality Reference (Units ) Status Glucose Point of Care 08/04/2024 09:51:47 140 Above high normal 70-120 (mg/dL) Final Performing Location
--- OUTSIDE RECORDS SUMMARY | 2024-09-17 06:13 | External Medical Summary | Summary of Care ---
Author Name Unknown Organization [facility] Address [address] [place] [address] Phone [phone] Care Team Providers Care Clinical Research Management Associate Name Role Phone Cinthya Hatfield DO Primary [...] Pre-operative examination Jes Juarez PA-C [address] [place] [address] Referral ID Status Reason Start Date Expiration Date Visits Requested Visits Authorized [id number] Pending Review Specialty Services Required 12/30/2024 99 [phone] Encounter Details Date Type Department Care Team (Latest Contact Info) Description 07/03/2024 5:10 PM EDT Anticoagulation Pharmacy, [address] [address] [facility] [address] [place] [address] Hyperinsulinemia*; PCOS (polycystic ovarian syndrome); Central obesity; [...] to 69.9 in adult 07/03/2024 [facility] OTHER*[id number] 07/03/2024 Central obesity 06/15/2024 Hyperinsulinemia 09/26/2023 Left-sided [...] mRNA, LNP-s, No Pre serve, 2-Dose Series ([employer]) 08/29/2021,10/03/2020,09/12/2020 Hepatitis B, 20+ yrs 04/27/2022,12/15/2021,11/10 MMR [...] as of this encounter Progress Notes * Betsy Gonzalez, [facility] - 07/03/2024 1:17 PM EDT Referral to [...] what pharmacyto send the script to. Patient is not currently taking an antiplatelet medication. I spent a total of 10-19 minutes (exact time 13 mins) on the date of service in preparation, delivery, and documentation of the care provided to Dina Lilly Dave excluding any time spent in the performance of separately billed services or time spent by another provider/QHP. Betsy Gonzalez, PharmD, BCACP Clinical Pharmacist Medication Therapy Disease Management 07/03/2024, 1:21 PM documented in this encounter Plan of Treatment Upcoming Encounters Date Type Department Care Team (Latest Contact Info) Description 07/07/2024 8:00 AM EDT Office Visit Dermatology [facility] [address] [place] [address] Armando Balderas MD [address] [facility] [address] 07/10/2024 5:10 PM EDT [facility]ly [facility], [address] [address] [facility] [address] [place] [address] 07/17/2024 8:00 AM EDT Telemedicine Nutrition & Weight Management, [place] [address] [place] [address] Lidya Gabriel MD [address] [place] [address] 08/04/2024 7:45 AM EST Hospital Encounter OR [facility], OPERATING ROOM [facility] [address] [place] [phone] Sarah Trejo MD [address] [place] [address] 08/04/2024 7:45 AM EST Anesthesia Event OR [facility], OPERATING ROOM [facility] [address] [place] [phone] Niko An CRNP [address] [place] [address] 08/04/2024 7:45 AM EST - 08/04/2024 1:40 PM EST Surgery OR [facility], OPERATING ROOM [facility] [address] [place] [phone] Sarah Trejo MD [address] [place], [place] [phone] LAPAROSCOPIC GASTRIC RESTRICTIVE PROCEDURE PARTIAL GASTRECTOMY PYLORUS PRESERVING SINGLE ANASTOMOSIS 08/21/2024 8:40 AM EST Nutrition Services Nutrition & Weight Management, [facility] [address] [place] [address] Anjana Saunders RDN [address] [place] [address] 08/21/2024 9:00 AM EST Office Visit Nutrition & Weight Management, [facility] [address] [place] [address] Josie Dennison PA-C [address] [place] [address] 08/21/2024 11:45 AM EST Office Visit General Surgery, [facility] [address] [place] [address] Sarah Trejo MD [address] [place], [place] [phone] Scheduled Procedures Name Priority Associated Diagnoses Date/Ti [...] Hyperinsulinemia Central obesity 08/04/2024 7:45 AM EST Scheduled Referrals Name Type Priority Associated Diagnoses Orde r Schedule ANTI-COAGULATION REFERRAL OP Referral Within 3 days (urgent) Class 3 severe obesity due to excess calories without serious comorbidity with body mass index (BMI) of 50.0 to 59.9 in adult (HCC) PCOS (polycystic ovarian syndrome) Hyperinsulinemia Central obesity Class 3 severe obesity due to excess calories without serious comorbidity with body mass index (BMI) of 60.0 to 69.9 in adult (HCC) Pre-operative examination Ordered: 07/03/2024 Health Maintenance Due Date Last Done Comments [...] Other specified hypoglycemia Central obesity Localized adiposity Hyperinsulinemia- Primary Other specified hypoglycemia PCOS (polycystic [...] adiposity documented in this encounter Care Teams Clinical Research Management Associate Relationship Specialty Start Date End Date Cinthya Hatfield DO [address] [place] [address] PCP - General Family Medicine 01/29/24 documented as of this encounter
--- OUTSIDE RECORDS SUMMARY | 2024-09-17 06:13 | External Medical Summary | Summary of Care ---
Author Name Unknown Organization [facility] Address [address] [place] [address] Phone [phone] Care Team Providers Care Pediatric Geneticist Name Role Phone Mj Hatfield DO Primary Care Provider [phone] Reason for Visit * Reason Comments NEW PATIENT Patient here for a m ole check, multiple nevi. Has had moles removed in the past, all normal. No personal or family hx of skin cx. * Evaluate & Treat - Unlimited Visits (Within 10 days (routine)) - Pending Review Specialty Diagnoses / Procedures Referred By Ashleigh bob Referred To Contact Dermatology Diagnoses Numerous moles Mj Hatfield DO [address] [place] [address] Referral ID Status Reason Start Date Expiration Date Visits Requested Visits Authorized [id number] Pending Review Specialty Services Required 12/25/2023 999 999 Encounter Details Date Type Department Care Team ([facility] st Contact Info) Description 07/07/2024 8:00 AM EDT Office Visit Dermatology [facility] [address] [place] [address] Armando Balderas MD [address] [facility] [place] [address] Multiple melanocytic nevi* Allergies Active Allergy Reactions Criticality Noted Date Comments Amoxicillin 11/23/2005 Diphenhydramine Other (Please comment) High 11/29/19 18 Cephalexin High 04/23/2019 Itchy, hives, throat closing, chest tightness. documented as of this encounter (statuses as of 07/07/2024) Medications Medication Sig Dispensed Refills Start Date [...] (BMI) of 50.0 to 59.9 in adult ([facility]),PCOS (polycystic ovarian syndrome),Hyperinsu linemia,Central obesity,Class 3 severe obesity due to excess calories without serious comorbidity with body mass index (BMI) of 60.0 to 69.9 in adult ([facility]),Pre-operative examination take 2 tabs by mouth every 8 hours pain after surgery for 3 days 18 Tablet 07/03/2024 Active Additional Information Patient not taking.Reported on 07/03/2024 Ondansetron HCl 4 MG Oral TabletIndications:C lass 3 severe obesity due to excess calories without serious comorbidity with body mass index (BMI) of 50.0 to 59.9 in adult ([facility]),PCOS (polycystic ovarian syndrome),Hyperinsu linemia,Central obesity,Class 3 severe obesity due to excess calories without serious comorbidity with body mass index (BMI) of 60.0 to 69.9 in adult ([facility]),Pre-operative examination 1 tablet by mouth every 8 [...] (BMI) of 60.0 to 69.9 in adult ([facility]),Pre-operative examination Take 1 cap by mouth daily for 90 days after surgery. 90 Capsule 07/03/2024 Active Additional Information Patient not taking.Reported on 07/03/2024 Enoxaparin Sodium 60 MG/0.6ML Injection Solution Prefilled Syringe (Lovenox)Indication s:Hyperinsulinemia, PCOS (polycystic ovarian syndrome),Central obesity,Pre-operati ve examination,Class 3 severe obesity due to excess calories without serious comorbidity with body mass index (BMI) of 60.0 to 69.9 in adult ([facility]),Class 3 severe obesity due to excess calories without serious comorbidity with body mass index (BMI) of 50.0 to 59.9 in adult ([facility]) Inject the full contents of 1 syringe (60 mg) under the skin every 12 hours for 10 days after procedure 12 mL 07/03/2024 Active documented as of this encounter (statuses as of 07/07/2024) Active Problems Problem Noted Date Diagnosed Date Pre-operative examination 07/03/2024 Class 3 severe obesity due t o excess calories without serious comorbidity with body mass index (BMI) of 60.0 to 69.9 in adult 07/03/2024 [facility] OTHER*[id number] 07/03/2024 Central obesity 06/15/2024 Hyperinsulinemia 09/26/2023 Left-sided [...] as of this encounter (statuses as of 07/07/2024) Resolved Problems Problem Noted Date Diagnosed Date [...] as of this encounter (statuses as of 07/07/2024) Immunizations Name Administration Dates Next Due COVID-19 mRNA, LNP-s, No Pre serve, 2-Dose Series ([employer]) 08/29/2021,10/03/2020,09/12/2020 Hepatitis B, 20+ yrs 04/27/2022,12/15/2021,11/10 MMR [...] as of this encounter Progress Notes * Armando Balderas MD - 07/07/2024 8:00 AM EDT SUBJECTIVE: Chief Complaint: Chief Complaint Patient presents with NEW PATIENT Patient here for a mole check, multiple nevi. Has had moles removed in the past, all normal. No personal or family hx of skin cx. HPI: Dina Acosta is a 33 year old female seen for a waist up skin check. Patient tells me PCP wasconcerned about a few of her moles. Had bad sunburn as an infant DERMATOLOGIC HISTORY: No prior history of skin cancer Hx of benign nevi REVIEW OF SYSTEMS: CONSTITUTIONAL: negative SKIN: No new or changing moles or rashes other than those noted in HPI HEME/LYMPH: No new or enlarging lumps or bumps OBJECTIVE: GEN: Healthy, alert, no distress, appears oriented, pleasant, and cooperative SKIN: Detailed exam of hair, face, trunk, arms Waist up, pt request Scattered on the chest, abdomen, back, and upper extremities are multiple evenly pigmented brown macules and papules without significant irregularity. ASSESSMENT/PLAN: Multiple benign-appearing nevi - Dermoscopy was used for physical examination of pigmented lesions during todays office visit. - No features concerning for malignancy on exam today. - Discussed and emphasized importance of sun protection with SPF >30 and sun protective attire - Patient to contact physician for any new or changing lesions or other concerns. Armando Balderas MD REF: MJ HATFIELD [address], [place] [id number] (office) [phone] (fax) PCP: MJ HATFIELD [address] [facility] [place] [address] [phone] documented in this encounter Nursing Notes * Josie Jj LPN - 07/07/2024 7:51 AM EDT Chief Complaint Patient presents with NEW PATIENT Patient here for a mole check, multiple nevi. Has had moles removed in the past, all normal. No personal or family hx of skin cx. documented in this encounter Plan of Treatment Upcoming Encounters Date Type Department Care Team (Latest Contact Info) Description 07/17/2024 8:00 AM EDT Telemedicine Nutrition & Weight Management, [place] [address] [place] [address] Lidya Gabriel MD [address] [place] [address] 08/04/2024 7:45 AM EST Hospital Encounter [facility], OPERATING ROOM [facility], [facility] [address] [place] [address] Sarah Trejo MD [address] [place] [address] 08/04/2024 7:45 AM EST Anesthesia Event OR [facility], OPERATING ROOM [facility] [address] [place] [facility] [phone] Niko An CRNP [address] [place] [address] 08/04/2024 7:45 AM EST - 08/04/2024 1:40 PM EST Surgery OR [facility], OPERATING ROOM [facility] [address] [place] [facility] [phone] Sarah Trejo MD [address] [place] [address] LAPAROSCOPIC GASTRIC RESTRICTIVE PROCEDURE PARTIAL GASTRECTOMY PYLORUS PRESERVING SINGLE ANASTOMOSIS 08/05/2024 5:10 PM EST [facility] [address] [place] [address] [place] [address] [place] [address] 08/21/2024 8:40 AM EST Nutrition Services Nutrition & Weight Management, [facility] [address] [place] [address] Anjana Saunders RDN [address] [place] [address] 08/21/2024 9:00 AM EST Office Visit Nutrition & Weight Management, [facility] [address] [place] [address] Josie Dennison PA-C [address] [place] [address] 08/21/2024 11:45 AM EST Office Visit General Surgery, [facility] [address] [place] [address] Sarah Trejo MD [address] [place] [address] Scheduled Procedures Name Priority Associated Diagnoses Date/Ti [...] Type Priority Associated Diagnoses Orde r Schedule DERMATOLOGY REFERRAL OP Referral Within 10 days (routine) Numerous moles Ordered: 12/25/2023 Health Maintenance Due Date Last Done Comments [...] Other specified hypoglycemia Central obesity Localized adiposity Multiple melanocytic nevi- Primary Benign neoplasm of skin, site unspecified Class 3 severe obesity due to excess calories without serious comorbidity with body mass index (BMI) of 50.0 to 59.9 in adult (HCC) Super obese Morbid obesity PCOS (polycystic ovarian syndrome) Polycystic ovaries Hyperinsulinemia Other specified hypoglycemia Central obesity Localized adiposity documented in this encounter Care Teams Pediatric Geneticist Relationship Specialty Start Date End Date Mj Hatfield DO [address] [place] [address] PCP - General Family Medicine 01/29/24 documented as of this encounter
--- OUTSIDE RECORDS SUMMARY | 2024-09-17 06:14 | External Medical Summary | Summary of Care ---
Author Name Unknown Organization [facility] Address [address] [place] [address] Phone [phone] Care Team Providers Care Customs Appraiser Name Role Phone Liu Cinthya Jeremy OROZCO Primary Care Provider [phone] Reason for Visit * Reason Onset Date Comments Appointment 07/03/2024 Encounter Details Date Type Department Care Team (Late st Contact Info) Description 07/03/2024 Telephone Nutrition and Weight Management [address] [place] [address] Dina Santamaria CRNP [address] [place] [address] Appointment Allergies Active Allergy Reactions Criticality Noted [...] Active Escitalopram Oxalate 10 MG Oral Tablet (Lexapro)Indications:A djustment disorder with anxious mood Take 1 Tablet by mouth in the morning. 30 Tablet 2 06/25/2024 Active Ozempic (1 MG/DOSE) 4 MG/3ML Subcutaneous Solution Pen-injector (Semaglutide (1 MG/DOSE)) Inject 1 mg under the skin once a week. 3 mL 1 07/03/2024 Active documented as of this encounter (statuses as of 07/03/2024) Active Problems Problem Noted Date Diagnosed Date Pre-operative examination 07/03/2024 Class 3 severe obesity due t o excess calories without serious comorbidity with body mass index (BMI) of 60.0 to 69.9 in adult 07/03/2024 [facility] OTHER*[id number] 07/03/2024 Central obesity 06/15/2024 Hyperinsulinemia 09/26/2023 Left-sided [...] No 04/24/2024 Does the household have a inscription house health centerlar source of income? (Household - for [...] 12:45 PM EDT Pre-Admission Testing Pre Surgery [place], [place] [address] [facility] [place] [address] [place] [facility] [place] [address] 07/07/2024 8:00 AM EDT Office Visit Dermatology [facility] [address] [place] [address] Armando Balderas MD [address] [place] [address] 07/17/2024 8:00 AM EDT Telemedicine Nutrition & Weight Management, [place] [address] [place], [place] [address] Lidya Gabrile MD [address] [place] [address] 08/04/2024 7:45 AM EST Hospital Encounter OR [facility], OPERATING ROOM [facility], [facility] [address] [place] [phone] Sarah Trejo MD [address] [place] [address] 08/04/2024 7:45 AM EST - 08/04/2024 1:40 PM EST Surgery OR [facility], OPERATING ROOM [facility], [facility] [address] [place] [phone] Sarah Trejo MD [address] [place] [address] LAPAROSCOPIC GASTRIC RESTRICTIVE PROCEDURE PARTIAL GASTRECTOMY PYLORUS PRESERVING SINGLE ANASTOMOSIS 08/21/2024 8:40 AM EST Nutrition Services Nutrition & Weight Management, [facility] [address] [facility] [place] [address] Anjana Saunders RDN [address] [place] [address] 08/21/2024 9:00 AM EST Office Visit Nutrition & Weight Management, [facility] [address] [place] [address] Josie Dennison PA-C [address] [place] [address] 08/21/2024 10:30 AM EST Office Visit General Surgery, [facility] [address] [place] [address] Sarah Trejo MD [address] [place] [address] 08/21/2024 11:45 AM EST Office Visit General Surgery, [facility] [address] [facility] [place] [address] Sarah Trejo MD [address] [place], [place] [phone] Scheduled Procedures Name Priority Associated Diagnoses Date/Ti [...] Not on filedocumented as of this encounter Care Teams Customs Appraiser Relationship Specialty Start Date End Date Cinthya Hatfield DO [address] [place] [address] PCP - General Family Medicine 01/29/24 documented as of this encounter
--- OUTSIDE RECORDS SUMMARY | 2024-09-17 06:14 | External Medical Summary | Summary of Care ---
Author Name Unknown Organization [facility] Address [address] [place] [address] Phone [phone] Care Team Providers Care Shank Maker Name Role Phone Mj Hatfield DO Primary Care Provider Reason for Visit * Reason Onset Date Comments Medication Refill 06/24/2024 Encounter Details Date Type Department Care Team (Late st Contact Info) Description 06/24/2024 Refill [facility] [address] [place] [address] Mj Hatfield DO [address] [place] [address] Adjustment disorder with anxious mood Allergies Active Allergy Reactions Criticality Noted Date Comments Amoxicillin 11/23/2005 Diphenhydramine Other (Please comment) High 11/29/19 18 Cephalexin High 04/23/2019 Itchy, hives, throat closing, chest tightness. documented as of this encounter (statuses as of 06/28/2024) Medications Medication Sig Dispensed Refills Start Date End Date Status Excedrin Migraine 250-250-65 MG Oral Tablet (Aspirin-Acetamino phen-Caffeine) Take 1 Tablet by mouth 3 times a day as needed for Migraine. 12/31/2020 Active Montelukast Sodium 10 MG Oral Tablet (Singulair) [...] the evening. 90 Tablet 2 04/23/2024 Active Semaglutide(0.25 or 0.5MG/DOS) 2 MG/3ML Solution Pen-injector (Ozempic)Indicatio ns:Class 3 severe obesity due to excess calories without serious comorbidity with body mass index (BMI) of 50.0 to 59.9 in adult ([facility]) Inject 0.5 mg under the skin once a week. 9 mL 2 06/22/2024 Active Escitalopram Oxalate 10 MG Oral Tablet (Lexapro)Indicatio ns:Adjustment disorder with anxious mood Take 1 Tablet by mouth in the morning. 30 Tablet 2 06/25/2024 Active Escitalopram Oxalate 10 MG Oral Tablet (Lexapro)Indicatio ns:Adjustment disorder with anxious mood Take 1 Tablet by mouth in the morning. 30 Tablet 5 08/16/2023 06/24/2024 Discontinued (Refill) documented as of this encounter (statuses as of 06/28/2024) Active Problems Problem Noted Date Diagnosed Date Central obesity 06/15/2024 Hyperinsulinemia 09/26/2023 Left-sided low [...] as of this encounter (statuses as of 06/28/2024) Resolved Problems Problem Noted Date Diagnosed Date [...] as of this encounter (statuses as of 06/28/2024) Immunizations Name Administration Dates Next Due COVID-19 mRNA, LNP-s, No Pre serve, 2-Dose Series ([employer]) 08/29/2021,10/03/2020,09/12/2020 Hepatitis B, 20+ yrs 04/27/2022,12/15/2021,11/10 MMR [...] on file documented as of this encounter Miscellaneous Notes * Telephone Encounter - Cari, Arturo Almaraz - 06/28/2024 12:56 AM EDT Received message from [facility] regarding patient needing an appointment. Patient was notified. Successfully contacted patient and provided [facility] message. * Telephone Encounter - Tex Martinez RPh - 06/25/2024 8:05 PM EDTSigned Prescriptions: Disp Refills Escitalopram Oxalate 10 MG Oral Tablet (Le*30 Tab*2 Sig: Take 1 Tablet by mouth in the morning. Authorizing Provider: MJ HATFIELD User: TEX MARTINEZ * Telephone Encounter - Tex Martinez RPh - 06/25/2024 8:03 PM EDT Please contact patient so that an appointment can be scheduled with her PRIMARY CARE provider. Refill authorized to hold patient over in the mean time. Last Visit: 04/23/2024 (in office), 08/12/2020 (telemedicine) Next Visit: Visit date not found Tex Thornton, PharmD Clinical Pharmacist [facility] ([facility]) [phone] 06/25/2024 8:05 PM documented in this encounter Plan of Treatment Upcoming Encounters Date Type Department Care Team (Latest Contact Info) Description 07/03/2024 8:00 AM EDT Telemedicine Nutrition and Weight Management [address] [place] [address] Dina Santamaria CRNP [address] [place] [address] [address] 07/03/2024 9:00 AM EDT Office Visit General Surgery[address] [place] [address] Jes Juarez PA-C [address] [place] [address] 07/03/2024 12:45 PM EDT Pre-Admission Testing Pre Surgery Center, [place] [address] [place] [address] [facility] [address] [place] [address] 07/07/2024 8:00 AM EDT Office Visit [facility] [address] [place] [address] Armando Balderas MD 200 [place] [address] 07/17/2024 8:00 AM EDT Telemedicine Nutrition & Weight Management, [place] [address] [place] [address] Lidya Gabriel MD [address] [place] [address] 08/04/2024 7:45 AM EST Hospital Encounter OR [facility], OPERATING ROOM [facility] [address] [place] [address] Sarah Trejo MD [address] [place] [address] 08/04/2024 7:45 AM EST - 08/04/2024 1:40 PM EST Surgery OR [facility], OPERATING ROOM [facility] [address] [place] [address] Sarah Trejo MD [address] [place], [place] [address] LAPAROSCOPIC GASTRIC RESTRICTIVE PROCEDURE PARTIAL GASTRECTOMY PYLORUS PRESERVING SINGLE ANASTOMOSIS 08/21/2024 8:40 AM EST Nutrition Services Nutrition & Weight Management, [facility] [address] [place] [address] Anjana Saunders RDN [address] [place] [address] 08/21/2024 9:00 AM EST Office Visit Nutrition & Weight Management, [facility] [address] [facility] [place] [address] Josie Dennison PA-C [address] [place] [address] 08/21/2024 10:30 AM EST Office Visit General Surgery, [facility] [address] [facility] [place] [address] Sarah Trejo MD [address] [place] [address] Scheduled Procedures Name Priority Associated Diagnoses Date/Ti [...] Other specified hypoglycemia Central obesity Localized adiposity Adjustment disorder with anxious mood Adjustment disorder with anxiety Class 3 severe obesity due to excess calories without serious comorbidity with body mass index (BMI) of 50.0 to 59.9 in adult (HCC) Super obese Morbid obesity PCOS (polycystic ovarian syndrome) Polycystic ovaries Hyperinsulinemia Other specified hypoglycemia Central obesity Localized adiposity documented in this encounter Care Teams Shank Maker Relationship Specialty Start Date End Date Mj Hatfield DO [address] [place] [address] PCP - General Family Medicine 01/29/24 documented as of this encounter
--- OUTSIDE RECORDS SUMMARY | 2024-09-17 06:14 | External Medical Summary | Summary of Care ---
Author Name Unknown Organization [facility] Address [address] [place] [facility] [place] [address] Phone [phone] Care Team Providers Care Prison Psychiatrist Name Role Phone RosaCinthya reese Jeremy OROZCO Primary Care Provider Encounter Details Date Type Department Care Team (Late st Contact Info) Description 07/03/2024 8:00 AM EDT Telemedicine Nutrition and Weight Management [address] [facility] [place] [address] Dina Santamaria CRNP [address] [place] [address] Morbid obesity due to excess calories (HCC)* Allergies Active Allergy Reactions Criticality Noted Date Comments Amoxicillin 11/23/2005 Diphenhydramine Other (Please comment) High 11/29/19 18 Cephalexin High 04/23/2019 Itchy, hives, throat closing, chest tightness. documented as of this encounter (statuses as of 07/03/2024) Medications Medication Sig Dispensed Refills Start Date End Date Status Excedrin Migraine 250-250-65 MG Oral Tablet (Aspirin-Acetaminop hen-Caffeine) Take 1 Tablet by mouth 3 times [...] a week. 3 mL 1 07/03/2024 Active Semaglutide(0.25 or 0.5MG/DOS) 2 MG/3ML Solution Pen-injector (Ozempic)Indication s:Class 3 severe obesity due to excess calories without serious comorbidity with body mass index (BMI) of 50.0 to 59.9 in adult ([facility]) Inject 0.5 mg under the skin once a week. 9 mL 2 06/22/2024 07/03/2024 Discontinued (Medication/ Dose Changed) documented as of this encounter (statuses as [...] mRNA, LNP-s, No Pre serve, 2-Dose Series ([employer] 08/29/2021,10/03/2020,09/12/2020 Hepatitis B, 20+ yrs 04/27/2022,12/15/2021,11/10 MMR [...] Care Team (Latest Contact Info) Description 07/03/2024 9:00 AM EDT Office Visit General Surgery[address] [address] Jes Juarez PA-C [address] [facility], [place] [id number] 07/03/2024 12:45 PM EDT Pre-Admission Testing Pre Surgery Center, [place] [address] [place], [place] [phone] [facility] [address] [facility], [place] [id number] 07/07/2024 8:00 AM EDT Office Visit Dermatology [facility] 200 [facility] [place] [phone] Armando Balderas MD 200 [facility] [place] [id number] 07/17/2024 8:00 AM EDT Telemedicine Nutrition & Weight Management, [place] [address] [facility] [place], [place] [phone] Lidya Gabriel MD [address] [place], [place] [phone] 08/04/2024 7:45 AM EST Hospital Encounter OR [facility], OPERATING ROOM [facility] [address] [facility] [place] [address] Sarah Trejo MD [address] [place], [place] [id number] 08/04/2024 7:45 AM EST - 08/04/2024 1:40 PM EST Surgery OR [facility], OPERATING ROOM [facility] [address] [facility] [place] [address] Sarah Trejo MD [address] [place] [address] LAPAROSCOPIC GASTRIC RESTRICTIVE PROCEDURE PARTIAL GASTRECTOMY PYLORUS PRESERVING SINGLE ANASTOMOSIS 08/21/2024 8:40 AM EST Nutrition Services Nutrition & Weight Management, [facility] 132 [facility] [place] [address] Anjana Saunders RDN [address] [place] [address] 08/21/2024 9:00 AM EST Office Visit Nutrition & Weight Management, [facility] [address] [place] [address] Josie Dennison PA-C [address] [place] [address] 08/21/2024 10:30 AM EST Office Visit General Surgery, [facility] [address] [place] [address] Sarah Trejo MD [address] [place], [place] [phone] 08/21/2024 11:45 AM EST Office Visit General Surgery, [facility] [address] [place] [address] Sarah Trejo MD [address] [place], [place] [phone] Scheduled Procedures Name Priority Associated Diagnoses Date/Ti [...] Other specified hypoglycemia Central obesity Localized adiposity Morbid obesity due to excess calories (HCC)- Primary Class 3 severe obesity due to excess calories without serious comorbidity with body mass index (BMI) of 50.0 to 59.9 in adult (HCC) Super obese Morbid obesity PCOS (polycystic ovarian syndrome) Polycystic ovaries Hyperinsulinemia Other specified hypoglycemia Central obesity Localized adiposity documented in this encounter Care Teams Prison Psychiatrist Relationship Specialty Start Date End Date Cinthya Hatfield DO [address] [place] [address] PCP - General Family Medicine 01/29/24 documented as of this encounter
--- OUTSIDE RECORDS SUMMARY | 2024-09-17 06:14 | External Medical Summary ---
Author Name Unknown Address Unknown Organization [id number]:LABORATORY [facility] - [address] [place] [address] Laboratory Report Ordering Provider Test Date Status RADHA ST 07/03/2024 10:50:01 Final Deficient: <20 ng/mL
Ins ufficient: 20-29 ng/mL
Recommended/Optimum:30-50 ng/mL

Vitamin D intoxication is rare. If suspicious of Vitamin D toxicity, evaluation of serum Calcium and PTH is recommended. Observation Date Value Abnormality Reference (Units ) Status 25-OH Vitamin D total 07/03/2024 10:50:01 32 >19 (ng/mL) Final Performing Location LABORATORY [facility] - [address] [place] [address]
--- OUTSIDE RECORDS SUMMARY | 2024-09-17 06:14 | External Medical Summary ---
Author Name Unknown Address Unknown Organization [id number]:[facility] [place] 100 [facility] [place] [address] Laboratory Report Ordering Provider Test Date Status FABY SMALLWOOD 07/03/2024 10:50:01 Final Observation Date Value Abnormality Reference (Units ) Status SYNC LEUKOCYTES IN BLOOD BY AUTOMATED COUNT 07/03/2024 10:50:01 7.91 4.00-10.80 (K/uL) Final Segs 07/03/2024 10:50:01 50.9 40.0-75.0 (%) Final Lymphs % 07/03/2024 10:50:01 40.1 18.0-42.0 (%) Final Monos 07/03/2024 10:50:01 5.4 1.0-11.0 (%) Final Eosinophils 07/03/2024 10:50:01 1.9 0.0-6.0 (%) Final Basos 07/03/2024 10:50:01 0.8 0.0-2.0 (%) Final Immature Granulocyte, Percent 07/03/2024 10:50:01 0.9 0.0-2.0 (%) Final Absolute Segs 07/03/2024 10:50:01 4.03 1.80-7.70 (K/uL) Final Lymphs, absolute 07/03/2024 10:50:01 3.17 1.00-4.80 (K/ul) Final Monos, Abs 07/03/2024 10:50:01 0.43 0.00-1.10 (K/uL) Final Eos, Abs 07/03/2024 10:50:01 0.15 0.00-0.70 (K/uL) Final Basos, Abs 07/03/2024 10:50:01 0.06 0.00-0.20 (K/uL) Final Immature Granulocytes, Number 07/03/2024 10:50:01 0.07 0.00-0.20 (K/uL) Final Performing Location LAB[facility]ORY [facility] - [address] [facility] [address]
--- OUTSIDE RECORDS SUMMARY | 2024-09-17 06:14 | External Medical Summary | Summary of Care ---
Author Name Unknown Organization [facility] Address [address] [place] [address] Phone [phone] Care Team Providers Care Parts Room Clerk Name Role Phone GuillaumeCinthya murillo Jeremy OROZCO Primary Care Provider [phone] Reason for Visit * Reason Onset Date Comments MyCode Consent 07/03/2024 Encounter Details Date Type Department Care Team (Late st Contact Info) Description 07/03/2024 Orders Only Outcomes Research Department [address] [place] [address] Lopez Vieira CHRA [employer] Research Other*[id number]* Allergies Active Allergy Reactions Criticality Noted Date [...] Active Escitalopram Oxalate 10 MG Oral Tablet (Lexapro)Indications: Adjustment disorder with anxious mood Take 1 Tablet by mouth in the morning. 30 Tablet 2 06/25/2024 Active Ozempic (1 MG/DOSE) 4 MG/3ML Subcutaneous Solution Pen-injector (Semaglutide (1 MG/DOSE)) Inject 1 mg under the skin once a week. 3 mL 1 07/03/2024 Active Acetaminophen 500 MG Oral Tablet (Tylenol)Indications: Class 3 severe obesity due to excess calories without serious comorbidity with body mass index (BMI) of 50.0 to 59.9 in adult ([facility]),PCOS (polycystic ovarian syndrome),Hyperinsuli nemia,Central obesity,Class 3 severe obesity due to excess calories without serious comorbidity with body mass index (BMI) of 60.0 to 69.9 in adult ([facility]),Pre-operative examination take 2 tabs by mouth every 8 hours pain after surgery for 3 days 18 Tablet 07/03/2024 Active Ondansetron HCl 4 MG Oral TabletIndications:Cla ss 3 severe obesity due to excess calories without serious comorbidity with body mass index (BMI) of 50.0 to 59.9 in adult ([facility]),PCOS (polycystic ovarian syndrome),Hyperinsuli nemia,Central obesity,Class 3 severe obesity due to excess calories without serious comorbidity with body mass index (BMI) of 60.0 to 69.9 in adult ([facility]),Pre-operative examination 1 tablet by mouth every 8 hours as needed for nausea after surgery. 30 Tablet 1 07/03/2024 Active Omeprazole 20 MG Oral Capsule Delayed Release (PriLOSEC)Indications :Class 3 severe obesity due to excess calories without serious comorbidity with body mass index (BMI) of 50.0 to 59.9 in adult ([facility]),PCOS (polycystic ovarian syndrome),Hyperinsuli nemia,Central obesity,Class 3 severe obesity due to excess calories without serious comorbidity with body mass index (BMI) of 60.0 to 69.9 in adult ([facility]),Pre-operative examination Take 1 cap by mouth daily for 90 days after surgery. 90 Capsule 07/03/2024 Active documented as of this encounter (statuses as of 07/03/2024) Active Problems Problem Noted Date Diagnosed Date Pre-operative examination 07/03/2024 Class 3 severe obesity due t o excess calories without serious comorbidity with body mass index (BMI) of 60.0 to 69.9 in adult 07/03/2024 [facility] OTHER*[id number] 07/03/2024 Central obesity 06/15/2024 Hyperinsulinemia 09/26/2023 Left-sided [...] mRNA, LNP-s, No Pre serve, 2-Dose Series ([employer]) 08/29/2021,10/03/2020,09/12/2020 Hepatitis B, 20+ yrs 04/27/2022,12/15/2021,11/10 [...] as of this encounter Progress Notes * Lopez Vieira CHRA - 07/03/2024 9:40 AM EDT [employer] Consent Documentation Dina Maxx Acosta provided consent/authorization to participate in the [employer] Project. documented in this encounter Plan of Treatment Upcoming Encounters Date Type Department Care Team (Latest Contact Info) Description 07/03/2024 12:45 PM EDT Pre-Admission Testing Pre Surgery [place], [address] [address] [place] [place] [address] [place] [address] 07/07/2024 8:00 AM EDT Office Visit Dermatology [facility] [place] [address] [place] [address] Armando Balderas MD [address] [place] [address] 07/17/2024 8:00 AM EDT Telemedicine Nutrition & Weight Management, [address] [address] Lidya Gabriel MD [facility] [address] [place], [place] [phone] 08/04/2024 7:45 AM EST Hospital Encounter OR [facility], OPERATING ROOM [facility] [address] [facility] [place] [phone] Sarah Trejo MD [address] [place] [facility] [place] [address] 08/04/2024 7:45 AM EST - 08/04/2024 1:40 PM EST Surgery OR [facility], OPERATING ROOM [facility] [address] [facility] [place] [address] Sarah Trejo MD [address] [place], [place] [phone] LAPAROSCOPIC GASTRIC RESTRICTIVE PROCEDURE PARTIAL GASTRECTOMY PYLORUS PRESERVING SINGLE ANASTOMOSIS 08/21/2024 8:40 AM EST Nutrition Services Nutrition & Weight Management, [facility] [address] [place] [address] Anjana Saunders RDN [address] [place] [address] 08/21/2024 9:00 AM EST Office Visit Nutrition & Weight Management, [facility] [address] [place] [address] Josie Dennison PA-C [address] [place] [address] 08/21/2024 10:30 AM EST Office Visit General Surgery, [facility] [address] [place] [address] Sarah Trejo MD [address] [facility], [place] [phone] 08/21/2024 11:45 AM EST Office Visit General Surgery, [facility] [address] [place] [address] Sarah Trejo MD [address] [facility] [place] [address] Scheduled Orders Name Type Priority Associated Diagnoses Orde r Schedule MYCODE INITIAL ADULT Lab Routine [facility] Research Other*[id number] Expected: 07/03/2024 (Approximate), Expires: 07/23/2025 Scheduled Procedures Name Priority Associated Diagnoses Date/Ti [...] hypoglycemia Central obesity Localized adiposity [employer] Research Other*[id number]- Primary Class 3 severe obesity due to excess calories without serious comorbidity with body mass index (BMI) of 50.0 to 59.9 in adult (HCC) Super obese Morbid obesity PCOS (polycystic ovarian syndrome) Polycystic ovaries Hyperinsulinemia Other specified hypoglycemia Central obesity Localized adiposity documented in this encounter Care Teams Parts Room Clerk Relationship Specialty Start Date End Date Cinthya Hatfield DO [address] [place] [address] PCP - General Family Medicine 01/29/24 documented as of this encounter
--- OUTSIDE RECORDS SUMMARY | 2024-09-17 06:14 | External Medical Summary | Summary of Care ---
Author Name Unknown Organization [facility] Address [address] [place] [address] Phone [phone] Care Team Providers Care Cat Cracker Operator Name Role Phone Cinthya Hatfield DO Primary Care Provider Reason for Visit * Reason Comments eRx-Medication Refill Encounter Details Date Type Department Care Team (Late st Contact Info) Description 06/24/2024 Refill [facility] [address] [place] [address] Cinthya Hatfield DO [address] [place] [address] Adjustment disorder with anxious mood Allergies Active Allergy Reactions Criticality Noted Date Comments Amoxicillin 11/23/2005 Diphenhydramine Other (Please comment) High 11/29/19 18 Cephalexin High 04/23/2019 Itchy, hives, throat closing, chest tightness. documented as of this encounter (statuses as of 06/25/2024) Medications Medication Sig Dispensed Refills Start Date [...] 50.0 to 59.9 in adult (HCC) Inject 0.5 mg under the skin once a week. 9 mL 2 06/22/2024 Active Escitalopram Oxalate 10 MG Oral Tablet (Lexapro)Indicatio ns:Adjustment disorder with anxious mood Take 1 Tablet by mouth in the morning. 30 Tablet 5 08/16/2023 06/24/2024 Discontinued (Refill) documented as of this encounter (statuses as of 06/25/2024) Active Problems Problem Noted Date Diagnosed Date [...] as of this encounter (statuses as of 06/25/2024) Resolved Problems Problem Noted Date Diagnosed Date [...] as of this encounter (statuses as of 06/25/2024) Immunizations Name Administration Dates Next Due COVID-19 mRNA, LNP-s, No Pre serve, 2-Dose Series ([employer]) 08/29/2021,10/03/2020,09/12/2020 Hepatitis B, 20+ yrs 04/27/2022,12/15/2021,11/10 MMR [...] encounter Miscellaneous Notes * Telephone Encounter - Natalee Martinez RPh - 06/25/2024 8:02 PM EDTRefused Prescriptions: Disp Refills Escitalopram Oxalate 10 MG Oral Tablet (Le*30 Tab*0 Sig: TAKE 1TABLET BY MOUTH IN THE MORNINGRefused By: DAVID MARTINEZNReason for Refusal: Duplicate Request--- documented in this encounter Plan of Treatment Upcoming Encounters Date Type Department Care Team (Latest Contact Info) Description 07/03/2024 8:00 AM EDT Telemedicine Nutrition and Weight Management [address] [place] [address] Dina Santamaria CRNP [address] [place] [address] 07/03/2024 9:00 AM EDT Office Visit General Surgery, [address] [address] Jes Juarez PA-C [address] [place] [address] 07/03/2024 12:45 PM EDT Pre-Admission Testing Pre [facility], [address] [address] [facility] [address] [place] [address] 07/07/2024 8:00 AM EDT Office Visit Dermatology [facility] [place] [address] [place], [place] [phone] Armando Balderas MD [address] [place] [address] 07/17/2024 8:00 AM EDT Telemedicine Nutrition & Weight Management, [address] [phone] Lidya Gabriel MD [facility] [place] [address] 08/04/2024 7:45 AM EST Hospital Encounter [facility], [facility] [address] [place] [facility] [place] [address] Sarah Trejo MD [address] [place], [place] [address] 08/04/2024 7:45 AM EST - 08/04/2024 1:40 PM EST Surgery OR [facility], OPERATING ROOM [facility] [address] [facility] [address] Sarah Trejo MD [address] [place], [place] [phone] LAPAROSCOPIC GASTRIC RESTRICTIVE PROCEDURE PARTIAL GASTRECTOMY PYLORUS PRESERVING SINGLE ANASTOMOSIS 08/21/2024 8:40 AM EST Nutrition Services Nutrition & Weight Management, [facility] [address] [place] [address] Anjana Saunders RDN [address] [place] [address] 08/21/2024 9:00 AM EST Office Visit Nutrition & Weight Management, [facility] [address] [place] [address] Josie Dennison PA-C [address] [place] [address] 08/21/2024 10:30 AM EST Office Visit General Surgery, [facility] [address] [place] [address] Sarah Trejo MD [address] [place] [address] Scheduled Procedures Name Priority Associated [...] adiposity documented in this encounter Care Teams Cat Cracker Operator Relationship Specialty Start Date End Date Cinthya Hatfield DO 132 [facility] [place] [address] PCP - General Family Medicine 01/29/24 documented as of this encounter
--- OUTSIDE RECORDS SUMMARY | 2024-09-17 06:14 | External Medical Summary ---
Author Name Unknown Address Unknown Organization K01:LABORATORY C - [address] [place] [address] Laboratory Report Ordering Provider Test Date Status FABY SMALLWOOD 07/03/2024 10:50:01 Final Observation Date Value Abnormality Reference (Units ) Status Albumin 07/03/2024 10:50:01 4.0 3.8-5.0 (g /dL) Final Performing Location LABORATORY [facility] - [address] [place] [address]
--- OUTSIDE RECORDS SUMMARY | 2024-09-17 06:14 | External Medical Summary ---
Author Name Unknown Address Unknown Organization K01:[facility] [place] [address] [place] [address] Laboratory Report Ordering Provider Test Date Status RADHA ST 07/03/2024 10:50:01 Final Observation Date Value Abnormality Reference (Units ) Status Vitamin B12 07/03/2024 10:50:01 769 139-3115 (pg/mL) Final Performing Location LAB[facility]ORY [facility] - [address] [place] [address]
--- OUTSIDE RECORDS SUMMARY | 2024-09-17 06:14 | External Medical Summary | Summary of Care ---
Author Name Unknown Organization [facility] Address [address] [place] [address] Phone [phone] Care Team Providers Care Human Resources Specialist Name Role Phone Cinthya Hatfield DO Primary Care Provider [phone] Reason for Referral * Evaluate & Treat - Unlimited [...] Pre-operative examination Jes Juarez PA-C [address] [place] [address] Referral ID Status Reason Start Date Expiration Date Visits Requested Visits Authorized [id number] Pending Review Specialty Services Required 4 12/30/2024 99 99 Question Answer Referral Priority Within 3 days (urgent) Where should this appointment be scheduled? [facility] Comments Anticoagulation referral for management of: Enoxaparin Indication for Enoxaparin referral: Post-op Bariatric Surgery Relevant History: N/A Minimum frequency patient should be seen in person for medication management: as appropriate per clinical condition and patient status By my signature, I understand that my patient Dina Acosta will have her medication therapy managed by the [facility] Medication Therapy [facility] ([facility]) per established policies, procedures, and protocols. I also certify that this referral may serve as an initiation of service for the management of drug therapy in the above noted patient. [facility] providers will be responsible for scheduling patient visits, obtaining appropriate laboratory studies, and adjusting medication management therapy per patient's need, in addition to those roles spelled out in the clinic policy, procedures, and drug management protocols. I understand that the service provided by the [facility] is voluntary and have informed patient that they can refuse the service at their discretion. I am aware that the [facility] Clinic will provide me with a copy of the patient encounter via my [employer] In[employer]xa. I authorize the [facility] to carry out these activities on my behalf. I consider this program to be a necessary part of the patient's medical care. Jes Juarez PA-C Reason for Visit * Reason Comments H&P Surgery Encounter Details Date Type Department Care Team (Late st Contact Info) Description 07/03/2024 9:00 AM EDT Office Visit General Surgery, [place] [address] [place] [address] Jes Juarez PA-C [address] [place] [address] Class 3 severe obesity due to excess calories without serious comorbidity with body mass index (BMI) of 50.0 to 59.9 in adult ([facility])*; PCOS (polycystic ovarian syndrome); Hyperinsulinemia; Central obesity; Class 3 severe obesity due to excess calories without serious comorbidity with body mass index (BMI) of 60.0 to 69.9 in adult ([facility]); Pre-operative examination Allergies Active Allergy Reactions Criticality Noted Date [...] 07/03/2024 Active Acetaminophen 500 MG Oral Tablet (Tylenol)Indicatio ns:Class 3 severe obesity due to excess calories without serious comorbidity with body mass index (BMI) of 50.0 to 59.9 in adult ([facility]),PCOS (polycystic ovarian syndrome),Hyperins ulinemia,Central obesity,Class 3 severe obesity due to excess calories without serious comorbidity with body mass index (BMI) of 60.0 to 69.9 in adult ([facility]),Pre-operativ e examination take 2 tabs by mouth every 8 hours pain after surgery for 3 days 18 Tablet 07/03/2024 Active Ondansetron HCl 4 MG Oral TabletIndications: Class 3 severe obesity due to excess calories without serious comorbidity with body mass index (BMI) of 50.0 to 59.9 in adult ([facility]),PCOS (polycystic ovarian syndrome),Hyperins ulinemia,Central obesity,Class 3 severe obesity due to excess calories without serious comorbidity with body mass index (BMI) of 60.0 to 69.9 in adult ([facility]),Pre-operativ e examination 1 tablet by mouth every 8 hours as needed for nausea after surgery. 30 Tablet 1 07/03/2024 Active Omeprazole 20 MG Oral Capsule Delayed Release (PriLOSEC)Indicati ons:Class 3 severe obesity due to excess calories without serious comorbidity with body mass index (BMI) of 50.0 to 59.9 in adult (HCC),PCOS (polycystic ovarian syndrome),Hyperins ulinemia,Central obesity,Class 3 severe obesity due to excess calories without serious comorbidity with body mass index (BMI) of 60.0 to 69.9 in adult ([facility]),Pre-operativ e examination Take 1 cap by mouth daily for 90 days after surgery. 90 Capsule 07/03/2024 Active Excedrin Migraine 250-250-65 MG Oral Tablet (Aspirin-Acetamino phen-Caffeine) Take 1 Tablet by mouth 3 times a day as needed for Migraine. 12/31/2020 07/03/2024 Discontinued (Medication List Clean Up) documented as of this encounter (statuses as of 07/03/2024) Active Problems Problem Noted Date Diagnosed Date Pre-operative examination 07/03/2024 Class 3 severe obesity due t o excess calories without serious comorbidity with body mass index (BMI) of 60.0 to 69.9 in adult 07/03/2024 [facility] OTHER*[id number] 07/03/2024 Central obesity 06/15/2024 Hyperinsulinemia 09/26/2023 Left-sided [...] mRNA, LNP-s, No Pre serve, 2-Dose Series (Relatient) 08/29/2021,10/03/2020,09/12/2020 Hepatitis B, 20+ yrs 04/27/2022,12/15/2021,11/10 MMR [...] Passive Smoke Exposure: Current Smokeless Tobacco: Never Tobacco Cessation:Counseling Given: Not Answered Alcohol Use Standard Drinks/Week Comments Never 0 [...] No 04/24/2024 Does the household have a [employer] source of income? (Household - for ages [...] on file documented as of this encounter Last Filed Vital Signs Vital Sign Reading Time Taken Comments Blood Pressure 133/84 07/03/2024 9:20 AM EDT Pulse 69 07/03/2024 9:20 AM EDT Temperature 36.3 C (97.3 F) 07/03/2024 9:20 AM ED T Respiratory Rate - - Oxygen Saturation - - Inhaled Oxygen Concentration - - Weight 171 kg (376 lb 14.4 oz) 07/03/2024 9:20 A M EDT Height 177.8 cm (5' 10") 07/03/2024 9:20 AM EDT Body Mass Index 54.08 07/03/2024 9:20 AM EDT documented in this encounter Patient Instructions * Patient Instructions* Jes Juarez PA-C - 07/03/2024 9:39 AM EDT PREOP BARIATRIC INSTRUCTIONS [facility] GENER[facility] SURGERY, [address] [address] 07/03/2024 ACTIVITY AND RETURN TO WORK OR SCHOOL As written in note you will receive post operatively. Please give insurance forms, FMLA forms and/or disability forms to nurse checking you into clinic or the regulatory analyst at checkout. Please be sure to fill out your name and address on those forms as well as the address where they need to be sent. DIET Starting 14 days before surgery Stage 2 diet (60-80 grams daily high protein liquid diet per Weight Management instructions, ie: Optisource, Nutrisource, High Protein Slimfast, ETC.) Patient should drink a 20-24 oz sports drink the evening before surgery. MEDICATIONS New medications for your heart: NONE. Not applicable to your care. Ishaan inhibitors: NOT Applicable (patient on NO ISHAAN Inhibitors or ARBS) SGLT2 inhibitors: NOT Applicable (patient on NO SGLT2 inhibitors) GLP-1 agonists: Do not take for 1 week before your surgery , Semaglutide (Ozempic, Rybelsus, Wegovy) Please do NOT take any nonsteroidal anti-inflammatory medications such as Aspirin, Motrin, or Ibuprofen or any anticoagulants such as Coumadin, Plavix, Aggrenox, Pletil or Ticlid within 5 days of surgery. You will be referred to the anticoagulation clinic for instructions on how to use Lovenox for 10 or28 days after hospital discharge. You will receive prescriptions at check out after your history and physical visit for Pain medications: Tylenol (acetaminophen) - Take every 8 hours for 3 days after surgery. You can take acetaminophen as needed starting on day 4 after surgery. Medications to prevent ulcers: Prilosec (omeprazole) 20mg daily for 90 days after surgery. Medications for Nausea: Zofran (ondansetron) tablet after surgery for nausea as needed. You will receive instructions at discharge from the GI Nutrition team after your surgery about which medications you will need to continue taking and how to take them. CONSULTATION Anticoagulation Clinic Referral DEVICES Bring the incentive spirometer from home to the hospital the day of surgery. If you use CPAP or BiPAP, please bring your own mask to the hospital the morning of surgery. FOLLOW UP VISIT If your surgery is scheduled more than 30 days from now then you may need a visit in the surgical department for a history and physical and a preanesthesia clinic visit within 30 days of your surgical date. This appointment will usually be with a surgical physician assistant professor in family studies. REASONS TO CALL POST SURGERY After your surgery, please call the surgical team if you experience any of the following: Increase in redness or drainage from wound Increase in abdominal pain, nausea or vomiting Fever and/or chills (Temp greater than 101F) Diarrhea for more than 72 hours Shortness of breath or chest pain Calf pain or tenderness QUESTIONS OR CONCERNS POST SURGERY Between 8AM and 4:30PM Mon - Fri contact: Britton NORIEGAN RN, Bariatric Nurse Coordinator Vianey Richardson RN, Bariatric Nurse Coordinator Vannessa KEMP RN, Bariatric Nurse Coordinator 24 HOUR CONTACT # : (Junko Tada cup machine operator) You can contact any physician member of the surgical team through the J[employer] Tada cup machine operator 24 hours a day Your surgeon Minimally Invasive Surgical Fellow salesperson furniture vice president of human resources salesperson furniture Bariatric Medicine salesperson furniture documented in this encounter Progress Notes * Jes Juarez PA-C - 07/03/2024 9:00 AM EDT Images from the original note were not included. [facility] CLINIC VISIT AT [facility] DATE: 07/03/2024 Last Clinic Visit: 06/12/24 Dina Acosta [id number] 33 year old PCP: Cinthya Hatfield, Consult requested by: Rachael Cortez RDN CC: Dina Acosta comes to see me in Bariatric Surgical Clinic for evaluation of morbid obesity. HPI 07/03/2024: Patient presents for a pre-op H&P for surgery tentatively scheduled for 08/04/[address] Trejo. Patient denies new changes to mediations or medical hx since last visit otherthan ozempic dose being increased by GI nutrition. HPI 06/12/24: This patient has been successfully treated in the [facility] Bariat[facility] for the past 5 [...] ECG Ventricular Rate: 70 Atrial Rate: 70 MT Interval: 136 QRS Duration: 80 QT/QTc: 390/421 ms P-R-T [place]: 27 : 20 : 25 degrees US [...] probable diffuse hepatic parenchymal fatty infiltration EGD 8/16/24 Findings & Specimens: The Z-line was found [...] intestinal metaplasia, mild gastric irritation, repeat 1 yr/[facility] EGD, FLEXIBLE, DIAGNOSTIC 11/26/2019 mild gastric irritation, repeat 5 yrs / [facility] EGD, FLEXIBLE, DIAGNOSTIC N/A 05/01/2024 ESOPHAGOGASTRODUODENOSCOPY (EGD), FLEXIBLE, TRANSORAL, DIAGNOSTIC performed by Matthew Solomon MD at OR [facility] REMOVE FOOT TENDON LESION Left 07/28/2021 EXCISION LESION TENDON FOOT performed by Rowena Mckee DPM at OR [facility] REMOVE FOOT TENDON LESION Left 11/30/2022 EXCISION LESION TENDON FOOT performed by Rowena Mckee DPM at OR [facility] REMOVE TONSILS & ADENOIDS, AGE 12+ Bilateral 06/21/2015 TONSILLECTOMY AND ADENOIDECTOMY AGE 12 OR OVER performed by Remberto Pennington DO at OR [facility] Social History Socioeconomic History Marital status: Single [...] History Narrative Lives with grandparents. 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 Social Determinants of Health Financial Resource [...] Stability Do you currently live in a group home or have no steady place to sleep [...] Diabetes Grandfather (Maternal) Heart Disorder Grandfather (Maternal) [place] Family history non contributory Psychosocial Current smoker within 1 year? No History of tobacco use? No Using nicotine replacement? No Current ETOH Use? Yes, currently less than 2 drinks per month Substance Abuse None Functional health status? 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 REVIEW OF SYSTEMS: Endocrine Diabetes Mellitis? No [...] respect to expected weight loss and BMI climate change analyst a year period postoperatively. We also reviewed the 30 day postoperativecomplications as predicted MBSAQIP risk calculator. All questions and concerns were addressed at this visit. She seems to understand and at this time would like to proceed with lap ALVARO-S. I spent a total of 60 min on the date of service in preparation, delivery, and documentation of thecare provided to Dina Lilly Dave excluding any [...] been discussed with the patient and or manufacturer's service representative who seem to understand and [...] includes following up with our service in [place] at [facility] for any and all post operative complications [...] discussed with the patient or the patient's manufacturer's service representative. No promises or guarantees have [...] nausea, vomiting, or abdominal pain possibly requiring care home medications. Bleeding possible requiring transfusion of blood [...] at preop visit. Omeprazole Zofran Tylenol 4) Maya-operative multi-modal pain Control to include: Order APAP (Tylenol) 975mg PO once Gabapentin 300 mg PO once 5) Hold anticoagulants: N/A. 6) Hold all ISHAAN Inhibitors and Angiotensin receptor blockers for 72 hours prior to surgery. NOT Applicable (patient on NO ISHAAN Inhibitors or ARBS) 7) Hold all SGLT2 [...] Order Perioperative SBE prophylaxis (See Smart Set #[id number]): N/A 18) Pacemaker clinic evaluation perioperatively: N/A [...] with any clinical problems and returning to [facility] if problems develop or they are advised [...] Day #1 Discharge Candidate at this time. I spent a total of 10-19 minutes (exact time 13 mins) on the date of service in preparation, delivery, and documentation of the care provided to Dina Acosta excluding any time spent in the performance of separately billed services or time spent by another provider/QHP. Jes Juarez PA-C Bariatric and Foregut Surgery [facility] 07/03/2024 documented in this encounter Plan of Treatment Upcoming Encounters Date Type Department Care Team (Latest Contact Info) Description 07/03/2024 12:45 PM EDT Pre-Admission Testing Pre Surgery Center, [place] [address] [place] [address] [facility] [address] [place] [address] 07/07/2024 8:00 AM EDT Office Visit Dermatology [facility] [address] [place] [address] Armando Balderas MD [address] [place] [address] 07/17/2024 8:00 AM EDT Telemedicine Nutrition & Weight Management, [place] [address], [place] [id number] Lidya Gabriel MD [address], [place] [id number] 08/04/2024 7:45 AM EST Hospital Encounter OR [facility], OPERATING ROOM [facility], [facility] [address] [place] [address] Sarah Trejo MD [address], [place] [id number] 08/04/2024 7:45 AM EST - 08/04/2024 1:40 PM EST Surgery OR [facility], OPERATING ROOM [facility] [address] [place] [address] Sarah Trejo MD [address] [place] [address] LAPAROSCOPIC GASTRIC RESTRICTIVE PROCEDURE PARTIAL GASTRECTOMY PYLORUS PRESERVING SINGLE ANASTOMOSIS 08/21/2024 8:40 AM EST Nutrition Services Nutrition & Weight Management, [facility] [address] [place] [address] Anjana Saunders RDN [address] [place] [address] 08/21/2024 9:00 AM EST Office Visit Nutrition & Weight Management, [facility] [address] [facility] [place] [address] Josie Dennison PA-C [address] [place] [address] 08/21/2024 10:30 AM EST Office Visit General Surgery, [facility] [address] [facility] [address] Sarah Trejo MD [address], [place] [id number] 08/21/2024 11:45 AM EST Office Visit General Surgery, [facility] [address] [facility] [place] [address] Sarah Trejo MD [address], [place] [id number] Scheduled Orders Name Type Priority Associated Diagnoses Orde r Schedule ALBUMIN Lab Routine Class 3 severe obesity due to excess calories without serious comorbidity with body mass index (BMI) of 50.0 to 59.9 in adult ([facility]) PCOS (polycystic ovarian syndrome) Hyperinsulinemia Central obesity Class 3 severe obesity due to excess calories without serious comorbidity with body mass index (BMI) of 60.0 to 69.9 in adult ([facility]) Pre-operative examination Expected: 07/03/2024, Expires: 07/03/2025 CBC WITH WBC DIFFERENTIAL AND ANEMIA REFLEX WORKUP Lab Routine Class 3 severe obesity due to excess calories without serious comorbidity with body mass index (BMI) of 50.0 to 59.9 in adult ([facility]) PCOS (polycystic ovarian syndrome) Hyperinsulinemia Central obesity Class 3 severe obesity due to excess calories without serious comorbidity with body mass index (BMI) of 60.0 to 69.9 in adult ([facility]) Pre-operative examination Expected: 07/03/2024, Expires: 07/03/2025 CREATININE Lab Routine Class 3 severe obesity due to excess calories without serious comorbidity with body mass index (BMI) of 50.0 to 59.9 in adult ([facility]) PCOS (polycystic ovarian syndrome) Hyperinsulinemia Central obesity Class 3 severe obesity due to excess calories without serious comorbidity with body mass index (BMI) of 60.0 to 69.9 in adult ([facility]) Pre-operative examination Expected: 07/03/2024, Expires: 07/03/2025 EKG EKG Routine Class 3 severe obesity due to excess calories without serious comorbidity with body mass index (BMI) of 50.0 to 59.9 in adult ([facility]CC) PCOS (polycystic ovarian syndrome) Hyperinsulinemia Central obesity Class 3 severe obesity due to excess calories without serious comorbidity with body mass index (BMI) of 60.0 to 69.9 in adult ([facility]CC) Pre-operative examination Expected: 07/03/2024 (Approximate), Expires: 08/03/2025 Scheduled Procedures Name Priority Associated Diagnoses Date/Ti [...] (BMI) of 50.0 to 59.9 in adult ([facility]) Super obese Morbid obesity PCOS (polycystic ovarian syndrome) Polycystic ovaries Hyperinsulinemia Other specified hypoglycemia Central obesity Localized adiposity Class 3 severe obesity due to excess calories without serious comorbidity with body mass index (BMI) of 50.0 to 59.9 in adult ([facility])- Primary PCOS (polycystic ovarian syndrome) Polycystic ovaries Hyperinsulinemia Other specified hypoglycemia Central obesity Localized adiposity Class 3 severe obesity due to excess calories without serious comorbidity with body mass index (BMI) of 60.0 to 69.9 in adult ([facility]) Pre-operative examination Preoperative examination, unspecified Class 3 severe obesity due to excess calories without serious comorbidity with body mass index (BMI) of 50.0 to 59.9 in adult ([facility]) Super obese Morbid obesity PCOS (polycystic ovarian syndrome) Polycystic ovaries Hyperinsulinemia Other specified hypoglycemia Central obesity Localized adiposity documented in this encounter Care Teams Human Resources Specialist Relationship Specialty Start Date End Date Cinthya Hatfield DO [address] [place] [address] PCP - General Family Medicine 01/29/24 documented as of this encounter
--- OUTSIDE RECORDS SUMMARY | 2024-09-17 06:14 | External Medical Summary | Summary of Care ---
Author Name Unknown Organization [facility] Address [address] [place] [address] Phone [phone] Care Team Providers Care Screw Machine Tool Setter Name Role Phone GuillaumeCinthya murillo Jeremy OROZCO Primary Care Provider Reason for Visit * Reason Onset Date Comments Research Study Patient 07/03/2024 Encounter Details Date Type Department Care Team (Late st Contact Info) Description 07/03/2024 Documentation Nutrition & Weight Management, [place] [address] [place] [address] Lopez Vieira CHRA [facility] OTHER*[id number]* Allergies Active Allergy Reactions Criticality Noted Date [...] (BMI) of 50.0 to 59.9 in adult ([facility]),PCOS (polycystic ovarian syndrome),Hyperinsuli nemia,Central obesity,Class 3 severe obesity due to excess calories without serious comorbidity with body mass index (BMI) of 60.0 to 69.9 in adult ([facility]),Pre-operative examination take 2 tabs by mouth every 8 hours pain after surgery for 3 days 18 Tablet 07/03/2024 Active Ondansetron HCl 4 MG Oral TabletIndications:Cla ss 3 severe obesity due to excess calories without serious comorbidity with body mass index (BMI) of 50.0 to 59.9 in adult ([facility]),PCOS (polycystic ovarian syndrome),Hyperinsuli nemia,Central obesity,Class 3 severe obesity due to excess calories without serious comorbidity with body mass index (BMI) of 60.0 to 69.9 in adult ([facility]),Pre-operative examination 1 tablet by mouth every 8 hours as needed for nausea after surgery. 30 Tablet 1 07/03/2024 Active Omeprazole 20 MG Oral Capsule Delayed Release (PriLOSEC)Indications :Class 3 severe obesity due to excess calories without serious comorbidity with body mass index (BMI) of 50.0 to 59.9 in adult ([facility]),PCOS (polycystic ovarian syndrome),Hyperinsuli nemia,Central obesity,Class 3 severe obesity due to excess calories without serious comorbidity with body mass index (BMI) of 60.0 to 69.9 in adult ([facility]),Pre-operative examination Take 1 cap by mouth daily for 90 days after surgery. 90 Capsule 07/03/2024 Active documented as of this encounter (statuses as of 07/03/2024) Active Problems Problem Noted Date Diagnosed Date Pre-operative examination 07/03/2024 Class 3 severe obesity due t o excess calories without serious comorbidity with body mass index (BMI) of 60.0 to 69.9 in adult 07/03/2024 [facility] OTHER*[id number] 07/03/2024 Central obesity 06/15/2024 Hyperinsulinemia 09/26/2023 Left-sided [...] mRNA, LNP-s, No Pre serve, 2-Dose Series ([employer]) 08/29/2021,10/03/2020,09/12/2020 Hepatitis B, 20+ yrs 04/27/2022,12/15/2021,11/10 MMR [...] Notes * Lopez Vieira CHRA - 07/03/2024 9:42 AM EDT Patient reviewed the informed consent for Protocol #[id number] Version 1.4, Risk Mediators of Metabolic Syndrome and [facility]. Patient had the opportunity to review the consent form. All questions were answered. Patient signed the consent and a copy was given with contact information. Stool kit declined. KELSEY Pineda 07/03/2024 documented in this encounter Plan of Treatment Upcoming Encounters Date Type Department Care Team (Latest Contact Info) Description 07/03/2024 12:45 PM EDT Pre-Admission Testing Pre Surgery [address] [address] [place] [address] [place] [address] 07/07/2024 8:00 AM EDT Office Visit Dermatology [place] [facility] [place] [address] [place] [address] Armando Balderas MD [address] [facility] [address] [place] [address] 07/17/2024 8:00 AM EDT Telemedicine Nutrition & Weight Management, [place] [address] [place] [address] Lidya Gabriel MD [address] [place] [address] 08/04/2024 7:45 AM EST Hospital Encounter [facility], OPERATING ROOM [facility], [place] [address] [place] [phone] Sarah Trejo MD [address] [place] [address] 08/04/2024 7:45 AM EST - 08/04/2024 1:40 PM EST Surgery OR [facility], OPERATING ROOM [facility], [place] [address] [place] [phone] Sarah Trejo MD [address], [place] [phone] LAPAROSCOPIC GASTRIC RESTRICTIVE PROCEDURE PARTIAL GASTRECTOMY PYLORUS PRESERVING SINGLE ANASTOMOSIS 08/21/2024 8:40 AM EST Nutrition Services Nutrition & Weight Management, [facility] [address] [place] [address] Anjana Saunders RDN [address] [place] [address] 08/21/2024 9:00 AM EST Office Visit Nutrition & Weight Management, [facility] [address] [place] [address] Josie Dennison PA-C [address] [place] [address] 08/21/2024 10:30 AM EST Office Visit General Surgery, [facility] [address] [place] [address] Sarah Trejo MD [address] [place] [address] 08/21/2024 11:45 AM EST Office Visit General Surgery, [facility] [address] [place] [address] Sarah Trejo MD [address] [place] [address] Scheduled Procedures Name Priority Associated Diagnoses Date/Ti [...] Other specified hypoglycemia Central obesity Localized adiposity [facility] Other*[id number]- Primary Class 3 severe obesity due to excess calories without serious comorbidity with body mass index (BMI) of 50.0 to 59.9 in adult ([facility]) Super obese Morbid obesity PCOS (polycystic ovarian syndrome) Polycystic ovaries Hyperinsulinemia Other specified hypoglycemia Central obesity Localized adiposity documented in this encounter Care Teams Screw Machine Tool Setter Relationship Specialty Start Date End Date Cinthya Hatfield DO [address] [place] [address] PCP - General Family Medicine 01/29/24 documented as of this encounter
--- OUTSIDE RECORDS SUMMARY | 2024-09-17 06:14 | External Medical Summary ---
Author Name Unknown Address Unknown Organization [id number]:[facility] [place] - [address] [place] [address] Laboratory Report Ordering Provider Test Date Status SAMUEL SABA 07/03/2024 10:50:01 Final Observation Date Value Abnormality Reference (Units ) Status AllSource AnalysisALIZA SPECIMEN-LAV 07/03/2024 10:50:01 Freezing of extracted DNA, whole blood and/or serum. Final Performing Location [facility] - [address] [place] [address]
--- OUTSIDE RECORDS SUMMARY | 2024-09-17 06:14 | External Medical Summary ---
Author Name Unknown Address Unknown Organization [id number]:[facility] [place] [address] [place] [address] Laboratory Report Ordering Provider Test Date Status SAMUEL SABA 07/03/2024 10:50:01 Final Observation Date Value Abnormality Reference (Units ) Status MYCODE SPECIMEN-SST 07/03/2024 10:50:01 Freezing of extracted DNA, whole blood and/or serum. Final Performing Location [facility] [place] - [address] [place] [address]
--- OUTSIDE RECORDS SUMMARY | 2024-09-17 06:14 | External Medical Summary ---
Author Name Unknown Address Unknown Organization [id number]:[facility] [place] - [address] [place] [address] Laboratory Report Ordering Provider Test Date Status FABY SMALLWOOD 07/03/2024 10:50:01 Final Observation Date Value Abnormality Reference (Units ) Status Creatinine 07/03/2024 10:50:01 0.7 0.5-1.0 (mg/dL) Final Glomerular filtration rate/1.73 sq M.predicted [Volume Rate/Area] in Serum, Plasma or Blood by Creatinine-based formula (CKD-EPI) 07/03/2024 10:50:01 >90 >=60 (mL/min) Final eGFR is calculated based on the CKD-EPI 2020 equation. Performing Location [facility] [place] - [address] [place] [address]
--- OUTSIDE RECORDS SUMMARY | 2024-09-17 06:14 | External Medical Summary | Summary of Care ---
Author Name Unknown Organization [facility] Address [address] [place] [address] Phone [phone] Care Team Providers Care Clerk Television Production Name Role Phone Cinthya Hatfield DO Primary Care Provider Reason for Referral * Evaluate & Treat [...] Pre-operative examination Jes Juarez PA-C [address] [place] [address] Referral ID Status Reason Start Date Expiration Date Visits Requested Visits Authorized [id number] Pending Review Specialty Services Required 4 12/30/2024 99 99 Question Answer Referral Priority Within 3 days (urgent) Where should this appointment be scheduled? [facility] Comments Anticoagulation referral for management of: Enoxaparin Indication for Enoxaparin referral: Post-op Bariatric Surgery Relevant History: N/A Minimum frequency patient should be seen in person for medication management: as appropriate per clinical condition and patient status By my signature, I understand that my patient Dina Acosta will have her medication therapy managed by the [facility] Medication Therapy Disease Management Clinic (MTD) per established policies, procedures, and protocols. I also certify that this referral may serve as an initiation of service for the management of drug therapy in the above noted patient. [facility] providers will be responsible for scheduling patient visits, obtaining appropriate laboratory studies, and adjusting medication management therapy per patient's need, in addition to those roles spelled out in the clinic policy, procedures, and drug management protocols. I understand that the service provided by the [facility] is voluntary and have informed patient that they can refuse the service at their discretion. I am aware that the [facility] Clinic will provide me with a copy of the patient encounter via my [employer]. I authorize the [facility] to carry out these activities on my behalf. I consider this program to be a necessary part of the patient's medical care. Jes Juarez PA-C Reason for Visit * Reason Comments H&P Surgery Encounter Details Date Type Department Care Team (Late st Contact Info) Description 07/03/2024 9:00 AM EDT Office Visit General Surgery, [place] [address] [place] [address] Jes Juarez PA-C [address] [place] [address] Class 3 severe obesity due to excess calories without serious comorbidity with body mass index (BMI) of 50.0 to 59.9 in adult ([facility])*; PCOS (polycystic ovarian syndrome); Hyperinsulinemia; Central obesity; Class 3 severe obesity due to excess calories without serious comorbidity with body mass index (BMI) of 60.0 to 69.9 in adult ([facility]); Pre-operative examination Allergies Active Allergy Reactions Criticality [...] 50.0 to 59.9 in adult ([facility]),PCOS (polycystic ovarian syndrome),Hyperins ulinemia,Central obesity,Class 3 severe obesity due to excess calories without serious comorbidity with body mass index (BMI) of 60.0 to 69.9 in adult ([facility]),Pre-operativ e examination take 2 tabs by mouth every 8 hours pain after surgery for 3 days 18 Tablet 07/03/2024 Active Ondansetron HCl 4 MG Oral TabletIndications: Class 3 severe obesity due to excess calories without serious comorbidity with body mass index (BMI) of 50.0 to 59.9 in adult ([facility]),PCOS (polycystic ovarian syndrome),Hyperins ulinemia,Central obesity,Class 3 severe obesity due to excess calories without serious comorbidity with body mass index (BMI) of 60.0 to 69.9 in adult ([facility]),Pre-operativ e examination 1 tablet by mouth every [...] (BMI) of 60.0 to 69.9 in adult ([facility]),Pre-operativ e examination Take 1 cap by mouth [...] to 69.9 in adult 07/03/2024 [facility] OTHER*[id number] 07/03/2024 Central obesity 06/15/2024 Hyperinsulinemia 09/26/2023 Left-sided [...] mRNA, LNP-s, No Pre serve, 2-Dose Series ([employer]) 08/29/2021,10/03/2020,09/12/2020 Hepatitis B, 20+ yrs 04/27/2022,12/15/2021,11/10 MMR [...] No 04/24/2024 Does the household have a presbyterian hospitallar source of income? (Household - for ages [...] 07/03/2024 9:39 AM EDT PREOP BARIATRIC INSTRUCTIONS [facility] GENERAL SURGERY, [address] [address] 07/03/2024 ACTIVITY AND RETURN TO WORK OR SCHOOL As written in note you will receive post operatively. Please give insurance forms, FMLA forms and/or disability forms to nurse checking you into clinic or the armature inspector at checkout. Please be sure to fill [...] be with a surgical physician assistant professor of chemistry. REASONS TO CALL POST SURGERY After your [...] Nurse Coordinator 24 HOUR CONTACT # : ([employer] press operator) You can contact any physician member of the surgical team through the [employer] press operator 24 hours a day Your surgeon Minimally Invasive Surgical Fellow radio station audio engineer residential treatment counselor radio station audio engineer Bariatric Medicine radio station audio engineer documented in this encounter Progress Notes * Jes Juarez PA-C - 07/03/2024 9:00 AM EDT Images from the original note were not included. [facility] CLINIC VISIT AT [facility] DATE: 07/03/2024 Last Clinic Visit: 06/12/24 Dina Acosta [id number] 33 year old PCP: Cinthya Hatfield, Consult [...] patient has been successfully treated in the [facility] Bariatric Medical Clinic for the past 5 [...] ECG Ventricular Rate: 70 Atrial Rate: 70 CA Interval: 136 QRS Duration: 80 QT/QTc: 390/421 ms P-R-T [place]: 27 : 20 : 25 degrees US [...] intestinal metaplasia, mild gastric irritation, repeat 1 yr/[facility] EGD, FLEXIBLE, DIAGNOSTIC 11/26/2019 mild gastric irritation, repeat 5 yrs / [facility] EGD, FLEXIBLE, DIAGNOSTIC N/A 05/01/2024 ESOPHAGOGASTRODUODENOSCOPY (EGD), FLEXIBLE, TRANSORAL, DIAGNOSTIC performed by Matthew Solomon MD at OR [facility] REMOVE FOOT TENDON LESION Left 07/28/2021 EXCISION LESION TENDON FOOT performed by Rowena Mckee DPM at OR [facility] REMOVE FOOT TENDON LESION Left 11/30/2022 EXCISION LESION TENDON FOOT performed by Rowena Mckee DPM at OR [facility] REMOVE TONSILS & ADENOIDS, AGE 12+ Bilateral 06/21/2015 TONSILLECTOMY AND ADENOIDECTOMY AGE 12 OR OVER performed by Remberto Pennington DO at OR [facility] Social History Socioeconomic History Marital status: Single [...] History Narrative Lives with grandparents. 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 Social Determinants of Health Financial Resource [...] Stability Do you currently live in a care home or have no steady place to [...] Diabetes Grandfather (Maternal) Heart Disorder Grandfather (Maternal) [place] Family history non contributory Psychosocial Current smoker within 1 year? No History of tobacco use? No Using nicotine replacement? No Current ETOH Use? Yes, currently less than 2 drinks per month Substance Abuse None Functional health status? 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 REVIEW OF SYSTEMS: Endocrine Diabetes Mellitis? No [...] respect to expected weight loss and BMI spinning frame changer a year period postoperatively. We also reviewed the 30 day postoperativecomplications as predicted MBSAQIP risk calculator. All questions and concerns were addressed at this visit. She seems to understand and at this time would like to proceed with lap ALVARO-S. I spent a total of 60 min on the date of service in preparation, delivery, and documentation of thecare provided to Dian Lilly Dave excluding any time spent in [...] been discussed with the patient and or eligibility services representative who seem to understand and agree [...] includes following up with our service in [place] [facility] for any and all post operative [...] discussed with the patient or the patient's eligibility services representative. No promises or guarantees have been [...] nausea, vomiting, or abdominal pain possibly requiring fdc medications. Bleeding possible requiring transfusion of blood [...] with any clinical problems and returning to [facility] if problems develop or they are advised [...] Jes Juarez PA-C Bariatric and Foregut Surgery [facility] 07/03/2024 documented in this encounter Nursing Notes * Britton Wood, RN - 07/03/2024 12:16 PM EDT Bariatric education completed. Instructed on incentive spirometry use. Patient return demo of 2000 ml. Instructed to bring the device to the hospital the day of surgery. Britton SEGUNDO, clinical psychology professor and Foregut Nurse Coordinator documented in this encounter Plan of Treatment Upcoming Encounters Date Type Department Care Team (Latest Contact Info) Description 07/03/2024 12:45 PM EDT Pre-Admission Testing Pre Surgery [place], [place] [address], [place] [id number] [place] [address] [place], [place] [phone] Pre-operative examination* 07/03/2024 5:10 PM EDT Anticoagulation Pharmacy, [place] [address] [place] [address] [facility] [address] [place] [address] 07/07/2024 8:00 AM EDT Office Visit Dermatology [facility] [address] [place] [address] Armando Balderas MD [address] [place] [address] 07/17/2024 8:00 AM EDT Telemedicine Nutrition & Weight Management, [place] [address] [place] [address] Lidya Gabriel MD [address], [place] [phone] 08/04/2024 7:45 AM EST Hospital Encounter [facility], OPERATING ROOM [facility], [place] [place] [address] [place] [phone] Sarah Trejo MD [address], [place] [phone] 08/04/2024 7:45 AM EST Anesthesia Event OR [facility], OPERATING ROOM [facility], [facility] [address] [place] [phone] Niko An CRNP [address] [facility], [place] [phone] 08/04/2024 7:45 AM EST - 08/04/2024 1:40 PM EST Surgery OR [facility], OPERATING ROOM [facility] [address] [place] [place] [address] Sarah Trejo MD [address] [place] [address] LAPAROSCOPIC GASTRIC RESTRICTIVE PROCEDURE PARTIAL GASTRECTOMY PYLORUS PRESERVING SINGLE ANASTOMOSIS 08/21/2024 8:40 AM EST Nutrition Services Nutrition & Weight Management, [facility] [address] [place] [address] Anjana Saunders RDN [address] [place] [address] 08/21/2024 9:00 AM EST Office Visit Nutrition & Weight Management, [facility] [address] [place] [address] Josie Dennison PA-C [address] [place] [address] 08/21/2024 11:45 AM EST Office Visit General Surgery, [facility] [address] [place] [address] Sarah Trejo MD [address] [place] [facility] [place] [address] Pending Results Name Type Priority Associated Diagnoses Date /Time CBC WITH WBC DIFFERENTIAL AND ANEMIA REFLEX WORKUP Lab Routine Class 3 severe obesity due to excess calories without serious comorbidity with body mass index (BMI) of 50.0 to 59.9 in adult ([facility]) PCOS (polycystic ovarian syndrome) Hyperinsulinemia Central obesity Class 3 severe obesity due to excess calories without serious comorbidity with body mass index (BMI) of 60.0 to 69.9 in adult ([facility]) Pre-operative examination 07/03/2024 10:50 AM EDT Scheduled Orders Name Type Priority Associated Diagnoses Orde r Schedule CBC WITH WBC DIFFERENTIAL AND ANEMIA REFLEX WORKUP Lab Routine Class 3 severe obesity due to excess calories without serious comorbidity with body mass index (BMI) of 50.0 to 59.9 in adult ([facility]) PCOS (polycystic ovarian syndrome) Hyperinsulinemia Central obesity Class 3 severe obesity due to excess calories without serious comorbidity with body mass index (BMI) of 60.0 to 69.9 in adult ([facility]) Pre-operative examination Expected: 07/03/2024, Expires: 07/03/2025 EKG EKG Routine Class 3 severe obesity due to excess calories without serious comorbidity with body mass index (BMI) of 50.0 to 59.9 in adult ([facility]) PCOS (polycystic ovarian syndrome) Hyperinsulinemia Central obesity Class 3 severe obesity due to excess calories without serious comorbidity with body mass index (BMI) of 60.0 to 69.9 in adult ([facility]) Pre-operative examination Expected: 07/03/2024 (Approximate), Expires: 08/03/2025 Scheduled Procedures Name Priority Associated Diagnoses Date/Ti me LAPAROSCOPIC GASTRIC RESTRIC TIVE PROCEDURE PARTIAL GASTRECTOMY PYLORUS PRESERVING SINGLE ANASTOMOSIS Class 3 severe obesity due to excess calories without serious comorbidity with body mass index (BMI) of 50.0 to 59.9 in adult ([facility]) Super obese PCOS (polycystic ovarian syndrome) Hyperinsulinemia Central obesity 08/04/2024 7:45 AM EST ESOPHAGOGASTRODUODENOSCOPY ( EGD), FLEXIBLE, TRANSORAL, DIAGNOSTIC Class 3 severe obesity due to excess calories without serious comorbidity with body mass index (BMI) of 50.0 to 59.9 in adult ([facility]) Super obese PCOS (polycystic ovarian syndrome) Hyperinsulinemia Central obesity 08/04/2024 7:45 AM EST UNLISTED LAPAROSCOPIC PROCED URE LIVER Class 3 severe obesity due to excess calories without serious comorbidity with body mass index (BMI) of 50.0 to 59.9 in adult ([facility]) Super obese PCOS (polycystic ovarian syndrome) Hyperinsulinemia [...] Not on filedocumented as of this encounter Results * CREATININE (07/03/2024 10:50 AM EDT) CREATININE 0.7 0.5 - 1.0 mg/dL 07/03/2024 11:54 AM EDT [facility] EGFR >90 >=60 mL/min 07/03/2024 11:54 AM EDT [facility] Comment:eGFR is calculated b ased on the CKD-EPI 2020 equation. Blood Venous blood specimen / Unknown Venipuncture / Unknown 07/03/2024 10:50 AM EDT 07/03/2024 11:21 AM EDT Jes Juarez PA-C LAB BLOOD ORDERABLES Performing Organization Address City/[facility]/ZIP Co de Phone Number LABORATORY [facility] [address] [place] [address] * ALBUMIN (07/03/2024 10:50 AM EDT) Albumin 4.0 3.8 - 5.0 g/dL 07/03/2024 11:54 AM EDT LABORATORY [facility] Blood Venous blood specimen / Unknown Venipuncture / Unknown 07/03/2024 10:50 AM EDT 07/03/2024 11:21 AM EDT Jes Juarez PA-C LAB BLOOD ORDERABLES Performing Organization Address City/[facility] Co de Phone Number LABORATORY [facility] [address] [place] [address] documented in this encounter Visit Diagnoses Diagnosis Class 3 severe obesity due to excess calories without serious comorbidity with body mass index (BMI) of 50.0 to 59.9 in adult ([facility]) Super obese Morbid obesity PCOS (polycystic ovarian syndrome) Polycystic ovaries Hyperinsulinemia Other specified hypoglycemia Central obesity Localized adiposity Class 3 severe obesity due to excess calories without serious comorbidity with body mass index (BMI) of 50.0 to 59.9 in adult ([facility])- Primary PCOS (polycystic ovarian syndrome) Polycystic ovaries Hyperinsulinemia Other specified hypoglycemia Central obesity Localized adiposity Class 3 severe obesity due to excess calories without serious comorbidity with body mass index (BMI) of 60.0 to 69.9 in adult ([facility]) Pre-operative examination Preoperative examination, unspecified Pre-operative examination- Primary Preoperative examination, unspecified Hyperinsulinemia- Primary Other specified hypoglycemia PCOS (polycystic ovarian syndrome) Polycystic ovaries Central obesity Localized adiposity Pre-operative examination Preoperative examination, unspecified Class 3 severe obesity due to excess calories without serious comorbidity with body mass index (BMI) of 60.0 to 69.9 in adult ([facility]) Class 3 severe obesity due to excess [...] adiposity documented in this encounter Care Teams Clerk Television Production Relationship Specialty Start Date End Date Cinthya Hatfield DO [address] [place] [address] PCP - General Family Medicine 01/29/24 documented as of this encounter
--- OUTSIDE RECORDS SUMMARY | 2024-09-17 06:14 | External Medical Summary | Summary of Care ---
Author Name Unknown Organization [facility] Address [address] [place] [address] Phone [phone] Care Team Providers Care Isobutylene Operator Chief Name Role Phone Cinthya Hatfield DO Primary [...] Pre-operative examination Jes Juarez PA-C [address] [place] [address] Referral ID Status Reason Start Date Expiration Date Visits Requested Visits Authorized [id number] Pending Review Specialty Services Required 12/30/2024 99 99 Encounter Details Date Type Department Care Team (Latest Contact Info) Description 07/03/2024 5:10 PM EDT Anticoagulation Pharmacy, [address] [address] [facility] [address] [place] [address] Hyperinsulinemia*; PCOS (polycystic ovarian syndrome); Central obesity; Pre-operative examination; Class 3 severe obesity due to excess calories without serious comorbidity with body mass index (BMI) of 60.0 to 69.9 in adult ([facility]); Class 3 severe obesity due to excess calories without serious comorbidity with body mass index (BMI) of 50.0 to 59.9 in adult ([facility]) Allergies Active Allergy Reactions Criticality [...] (BMI) of 50.0 to 59.9 in adult ([facility]),PCOS (polycystic ovarian syndrome),Hyperinsu linemia,Central obesity,Class 3 severe obesity due to excess calories without serious comorbidity with body mass index (BMI) of 60.0 to 69.9 in adult ([facility]),Pre-operative examination take 2 tabs by mouth every 8 hours pain after surgery for 3 days 18 Tablet 07/03/2024 Active Additional Information Patient not taking.Reported on 07/03/2024 Ondansetron HCl 4 MG Oral TabletIndications:C lass 3 severe obesity due to excess calories without serious comorbidity with body mass index (BMI) of 50.0 to 59.9 in adult ([facility]),PCOS (polycystic ovarian syndrome),Hyperinsu linemia,Central obesity,Class 3 severe obesity due to excess calories without serious comorbidity with body mass index (BMI) of 60.0 to 69.9 in adult ([facility]),Pre-operative examination 1 tablet by mouth every 8 hours as needed for nausea after surgery. 30 Tablet 1 07/03/2024 Active Additional Information Patient not taking.Reported on 07/03/2024 Omeprazole 20 MG Oral Capsule Delayed Release (PriLOSEC)Indicatio ns:Class 3 severe obesity due to excess calories without serious comorbidity with body mass index (BMI) of 50.0 to 59.9 in adult ([facility]),PCOS (polycystic ovarian syndrome),Hyperinsu linemia,Central obesity,Class 3 severe obesity due to excess calories without serious comorbidity with body mass index (BMI) of 60.0 to 69.9 in adult ([facility]),Pre-operative examination Take 1 cap by [...] to 69.9 in adult 07/03/2024 [facility] OTHER*[id number] 07/03/2024 Central obesity 06/15/2024 Hyperinsulinemia 09/26/2023 Left-sided [...] mRNA, LNP-s, No Pre serve, 2-Dose Series ([employer]) 08/29/2021,10/03/2020,09/12/2020 Hepatitis B, 20+ yrs 04/27/2022,12/15/2021,11/10 MMR [...] this encounter Progress Notes * Betsy Gonzalez, [facility] - 07/03/2024 1:17 PM EDT Referral to [...] 07/07/2024 8:00 AM EDT Office Visit [facility] [address] [facility] [place] [address] Armando Balderas MD [address] [facility] [place] [address] 07/10/2024 5:10 PM EDT [facility], [address] [address] [facility] [address] [place] [address] 07/17/2024 8:00 AM EDT Telemedicine Nutrition & Weight Management, [place] [address] [place] [address] Lidya Gabriel MD [address] [place] [address] 08/04/2024 7:45 AM EST Hospital Encounter [facility], OPERATING ROOM [facility], [facility] [address] [place] [phone] Sarah Trejo MD [address] [place] [address] 08/04/2024 7:45 AM EST Anesthesia Event [facility], OPERATING ROOM [facility], [facility] [address] [place] [phone] Niko An CRNP [address] [place] [address] 08/04/2024 7:45 AM EST - 08/04/2024 1:40 PM EST Surgery OR [facility], OPERATING ROOM [facility] [place] [address] [place] [phone] Sarah Trejo MD [address], [place] [phone] LAPAROSCOPIC GASTRIC RESTRICTIVE PROCEDURE PARTIAL GASTRECTOMY PYLORUS PRESERVING SINGLE ANASTOMOSIS 08/21/2024 8:40 AM EST Nutrition Services Nutrition & Weight Management, [facility] [address] [place] [address] Anjana Saunders RDN [address] [place] [address] 08/21/2024 9:00 AM EST Office Visit Nutrition & Weight Management, [facility] [address] [place] [address] Josie Dennison PA-C [address] [place] [address] 08/21/2024 11:45 AM EST Office Visit General Surgery, [facility] [address] [place] [address] Sarah Trejo MD [address], [place] [phone] Scheduled Procedures Name Priority Associated Diagnoses Date/Ti [...] adiposity documented in this encounter Care Teams Isobutylene Operator Chief Relationship Specialty Start Date End Date Cinthya Hatfield DO [address] [place] [address] PCP - General Family Medicine 01/29/24 documented as of this encounter
--- OUTSIDE RECORDS SUMMARY | 2024-09-17 06:14 | External Medical Summary ---
Author Name Unknown Address Unknown Organization K01:LABORATORY [facility] - [address] [place] [address] Laboratory Report Ordering Provider Test Date Status SAMUEL SABA 07/03/2024 10:50:01 Final Observation Date Value Abnormality Reference (Units ) Status MYCODE SPECIMEN-SST 07/03/2024 10:50:01 Freezing of extracted DNA, whole blood and/or serum. Final Performing Location LABORATORY [facility] - [address] [place] [address]
--- OUTSIDE RECORDS SUMMARY | 2024-09-17 06:14 | External Medical Summary | Summary of Care ---
Author Name Unknown Organization [facility] Address [address] [place] [address] Phone [phone] Care Team Providers Care Terrazzo Mechanic Name Role Phone Liu Cinthya Luna DO Primary Care Provider Reason for Visit * Reason Comments Outpatient Testing Encounter Details Date Type Department Care Team (Late st Contact Info) Description 07/03/2024 10:50 AM EDT Laboratory Outpatient Laboratory, [place] [address] [place] [address] [place], Lab B1a [address] [place] [address] Abnormal blood level of copper; B12 deficiency; Vitamin D deficiency; Class 3 severe obesity due to excess calories without serious comorbidity with body mass index (BMI) of 50.0 to 59.9 in adult (HCC); PCOS (polycystic ovarian syndrome); Hyperinsulinemia; Central obesity; Class 3 severe obesity due to excess calories without serious comorbidity with body mass index (BMI) of 60.0 to 69.9 in adult (HCC); Pre-operative examination; MyCL[employer] Research Other*[id number] Allergies Active Allergy Reactions Criticality Noted Date [...] 50.0 to 59.9 in adult ([facility]),PCOS (polycystic ovarian syndrome),Hyperinsuli nemia,Central obesity,Class 3 severe obesity due to excess calories without serious comorbidity with body mass index (BMI) of 60.0 to 69.9 in adult ([facility]),Pre-operative examination take 2 tabs by mouth every 8 hours pain after surgery for 3 days 18 Tablet 07/03/2024 Active Ondansetron HCl 4 MG Oral TabletIndications:Cla ss 3 severe obesity due to excess calories without serious comorbidity with body mass index (BMI) of 50.0 to 59.9 in adult ([facility]),PCOS (polycystic ovarian syndrome),Hyperinsuli nemia,Central obesity,Class 3 severe obesity due to excess calories without serious comorbidity with body mass index (BMI) of 60.0 to 69.9 in adult ([facility]),Pre-operative examination 1 tablet by mouth every 8 hours as needed for nausea after surgery. 30 Tablet 1 07/03/2024 Active Omeprazole 20 MG Oral Capsule Delayed Release (PriLOSEC)Indications :Class 3 severe obesity due to excess calories without serious comorbidity with body mass index (BMI) of 50.0 to 59.9 in adult ([facility]),PCOS (polycystic ovarian syndrome),Hyperinsuli nemia,Central obesity,Class 3 [...] to 69.9 in adult 07/03/2024 [facility] [employer] OTHER*[id number] 07/03/2024 Central obesity 06/15/2024 Hyperinsulinemia 09/26/2023 Left-sided [...] 12:45 PM EDT Pre-Admission Testing Pre Surgery [address] [address] [place] [address] [place] [address] 07/03/2024 5:10 PM EDT Anticoagulation Pharmacy, [place] [address] [place] [address] [facility] [address] [place] [facility] [place] [address] 07/07/2024 8:00 AM EDT Office Visit Dermatology [facility] [address] [place] [address] Armando Balderas MD [address] [place] [address] 07/17/2024 8:00 AM EDT [facility] [address], [place] [phone] Lidya Gabriel MD [address], [place] [phone] 08/04/2024 7:45 AM EST Hospital Encounter OR [facility], OPERATING ROOM [facility], SANTY PAVADDISON [address] [place] [address] Sarah Trejo MD [address] [place] [address] 08/04/2024 7:45 AM EST - 08/04/2024 1:40 PM EST Surgery OR [facility], OPERATING ROOM [facility], SANTY PAVILI [address] [place] [address] Sarah Trejo MD [address] [place] [address] LAPAROSCOPIC GASTRIC RESTRICTIVE PROCEDURE PARTIAL GASTRECTOMY PYLORUS PRESERVING SINGLE ANASTOMOSIS 08/21/2024 8:40 AM EST Nutrition Services Nutrition & Weight Management, [facility] [address] [facility] [place] [address] Anjana Saunders RDN [address] [place] [address] 08/21/2024 9:00 AM EST Office Visit Nutrition & Weight Management, [facility] [address] [facility] [place] [address] Josie Dennison PA-C [address] [place] [address] 08/21/2024 11:45 AM EST Office Visit General Surgery, [facility] [address] [place] [address] [facility] Trejo MD [address] [facility] [place] [address] Scheduled Orders Name Type Priority Associated Diagnoses Orde r Schedule ANEMIA CBC Lab Routine Class 3 severe obesity due to excess calories without serious comorbidity with body mass index (BMI) of 50.0 to 59.9 in adult ([facility]) PCOS (polycystic ovarian syndrome) Hyperinsulinemia Central obesity Class 3 severe obesity due to excess calories without serious comorbidity with body mass index (BMI) of 60.0 to 69.9 in adult ([facility]) Pre-operative examination Ordered: 07/03/2024 DIFFERENTIAL, AUTOMATED Lab Routine Class 3 severe obesity due to excess calories without serious comorbidity with body mass index (BMI) of 50.0 to 59.9 in adult ([facility]) PCOS (polycystic ovarian syndrome) Hyperinsulinemia Central obesity Class 3 severe obesity due to excess calories without serious comorbidity with body mass index (BMI) of 60.0 to 69.9 in adult ([facility]) Pre-operative examination Ordered: 07/03/2024 ANEMIA REFLEX CHEMISTRY HOLD Lab Routine Class 3 severe obesity due to excess calories without serious comorbidity with body mass index (BMI) of 50.0 to 59.9 in adult ([facility]) PCOS (polycystic ovarian syndrome) Hyperinsulinemia Central obesity Class 3 severe obesity due to excess calories without serious comorbidity with body mass index (BMI) of 60.0 to 69.9 in adult ([facility]) Pre-operative examination Ordered: 07/03/2024 MYCODE INITIAL ADULT-PINK Lab Routine MyCode Research Other*[id number] Ordered: 07/03/2024 MYCODE SST1 Lab Routine [employer] Other*[id number] Ordered: 07/03/2024 MYCODE SST2 Lab Routine MyCode Research Other*[id number] Ordered: 07/03/2024 Scheduled Procedures Name Priority Associated Diagnoses Date/Ti me LAPAROSCOPIC GASTRIC RESTRIC TIVE PROCEDURE PARTIAL GASTRECTOMY PYLORUS PRESERVING SINGLE ANASTOMOSIS Class 3 severe obesity due to excess calories without serious comorbidity with body mass index (BMI) of 50.0 to 59.9 in adult ([facility]) Super obese PCOS (polycystic ovarian syndrome) [...] 60.0 to 69.9 in adult ([facility]) Class 3 severe obesity due to excess calories without serious comorbidity with body mass index (BMI) of 50.0 to 59.9 in adult ([facility]) Abnormal blood level of copper Other abnormal blood chemistry B12 deficiency Other B-complex deficiencies Vitamin D deficiency Unspecified vitamin D deficiency Class 3 severe obesity due to excess calories without serious comorbidity with body mass index (BMI) of 50.0 to 59.9 in adult ([facility]) PCOS (polycystic ovarian syndrome) Polycystic ovaries Hyperinsulinemia Other specified hypoglycemia Central obesity Localized adiposity Class 3 severe obesity due to excess calories without serious comorbidity with body mass index (BMI) of 60.0 to 69.9 in adult ([facility]) Pre-operative examination Preoperative examination, unspecified MyCode Research Other*[id number] Class 3 severe obesity due to excess calories without serious comorbidity with body mass index (BMI) of 50.0 to 59.9 in adult ([facility]) Super obese Morbid obesity PCOS (polycystic ovarian syndrome) Polycystic ovaries Hyperinsulinemia Other specified hypoglycemia Central obesity Localized adiposity documented in this encounter Care Teams Terrazzo Mechanic Relationship Specialty Start Date End Date Cinthya Hatfield DO [address] [place] [address] PCP - General Family Medicine 01/29/24 documented as of this encounter
--- OUTSIDE RECORDS SUMMARY | 2024-09-17 06:14 | External Medical Summary ---
Author Name Unknown Address Unknown Organization K01:LABORATORY [facility] - [address] [place] [address] Laboratory Report Ordering Provider Test Date Status SELINSB WOODARDBETOMaxx 07/03/2024 10:50:01 Final Observation Date Value Abnormality Reference (Units ) Status WBC, Total 07/03/2024 10:50:01 7.91 4.00-10.8 0 (K/uL) Final RBC 07/03/2024 10:50:01 5.10 3.85-5.15 (M/uL) Final Hemoglobin 07/03/2024 10:50:01 14.9 12.0-15.3 (g/dL) Final Anemia reflex testing trigge rs on a HGB < 12.0 for Females and HGB < 13.0 for Males in accordance with the WHO Anemia Guidelines
Anemia reflex testing triggers on a HGB < 12.0 for Females and HGB < 13.0 for Males in accordance with the WHO Anemia Guidelines HCT 07/03/2024 10:50:01 43.0 36.0-45.2 (%) Final MCV 07/03/2024 10:50:01 84.3 81.5-97.5 (fL) Final MCH 07/03/2024 10:50:01 29.2 27.0-34.0 (pg) Final MCHC 07/03/2024 10:50:01 34.7 32.0-36.0 (g/dL) Final RDW 07/03/2024 10:50:01 13.4 11.5-15.5 (%) Final Platelets 07/03/2024 10:50:01 381 140-400 (K /uL) Final MPV 07/03/2024 10:50:01 10.3 6.6-11.1 ( fL) Final Nucleated erythrocytes/100 leukocytes [Ratio] in Blood by Automated count 07/03/2024 10:50:01 0 <=0 (/100 WBCs) [facility] Performing Location LABORATORY [facility] - [address] [facility] [address]
--- OUTSIDE RECORDS SUMMARY | 2024-09-17 06:14 | External Medical Summary ---
Author Name Unknown Address Unknown Organization : Laboratory Report Ordering Provider Test Date Status RADHA ST 07/03/2024 10:50:01 Final Observation Date Value Abnormality Reference (Units ) Status Copper 07/03/2024 10:50:01 235 Above high normal 70 -175 (mcg/dL) Final THIS RESULT HAS BEEN VERIFIE D BY REPEAT ANALYSIS.
This test was developed and its analytical performance
characteristics have been determined by [facility] [place]. It has
not been cleared or approved by the U.S. Food and Drug
Administration. This assay has been validated pursuant
to the CLIA regulations and is used for clinical
purposes.

Test Performed at:
[facility]
[address] [facility] [place] [address]
Elio Palacio M.D., Ph.D.,Director of Laboratories Performing Location
--- OUTSIDE RECORDS SUMMARY | 2024-09-17 06:15 | External Medical Summary | Summary of Care ---
Author Name Unknown Organization [facility] Address [address] [place] [address] Phone [phone] Care Team Providers Care Rn Office Name Role Phone Cinthya Hatfield DO Primary Care Provider Reason for Visit * Reason Onset Date Comments Returning Call 05/07/2024 Encounter Details Date Type Department Care Team (Late st Contact Info) Description 05/07/2024 Telephone Nutrition & Weight Management, [facility] [address] [place] [address] Josie Dennison PA-C [address] [place] [address] Returning Call Allergies Active Allergy Reactions Criticality Noted Date Comments Amoxicillin 11/23/2005 Diphenhydramine Other (Please comment) High 11/29/19 18 Cephalexin High 04/23/2019 Itchy, hives, throat closing, chest tightness. documented as of this encounter (statuses as of 05/07/2024) Medications Medication Sig Dispensed Refills Start Date End Date Status Excedrin Migraine 250-250-65 MG Oral Tablet (Aspirin-Acetaminoph en-Caffeine) Take 1 Tablet by mouth 3 times a day as needed for Migraine. 12/31/2020 Active Escitalopram Oxalate 10 MG Oral Tablet (Lexapro)Indications :Adjustment disorder with anxious mood Take 1 Tablet by mouth in the morning. 30 Tablet 5 08/16/2023 Active Montelukast Sodium 10 MG Oral Tablet (Singulair) Take 1 Tablet by mouth in the morning. 90 Tablet 3 09/26/2023 Active Semaglutide(0.25 or 0.5MG/DOS) 2 MG/3ML Solution Pen-injector (Ozempic) Inject 0.5 mg under the skin once a week. 9 mL 2 02/18/2024 Active Fluorometholone 0.1 % Ophthalmic Suspension (FML) INSTILL 1 DROP INTO AFFECTED EYE(S) 4 TIMES DAILY FOR 2 WEEKS 03/24/2024 Active Norgestimate-Eth Estradiol 0.25-35 MG-MCG Oral Tablet (Sprintec 28)Indications:PCOS (polycystic ovarian syndrome) Take 1 Tablet by mouth in the morning. In the morning.. 84 Tablet 3 04/23/2024 Active Topiramate 25 MG Oral Tablet (Topamax) Take 1 Tablet by mouth in the morning and 1 Tablet at noon and 1 Tablet in the evening. 90 Tablet 2 04/23/2024 Active Wegovy 0.5 MG/0.5ML Subcutaneous Solution Auto-injector (Semaglutide-Weight Management) Inject 0.5 mg (1 pen) under the skin once a week. 2 mL 3 04/27/2024 Active Additional Information Patient not taking.Reported on 05/01/2024 documented as of this encounter (statuses as of 05/07/2024) Active Problems Problem Noted Date Diagnosed Date Hyperinsulinemia 09/26/2023 Left-sided low back pain with left-sided sciatic a 09/26/2023 Migraine with aura and witho ut status migrainosus, not intractable 11/24/2022 ROSANNE (generalized anxiety disorder) 11/24/2022 Super obese 05/28/2014 Overview: bmi= 49.69 05/28/14 PCOS (polycystic ovarian syndrome) 05/27/2012 Class 3 severe obesity due t o excess calories without serious comorbidity with body mass index (BMI) of 60.0 to 69.9 in adult 04/21/2012 documented as of this encounter (statuses as of 05/07/2024) Resolved Problems Problem Noted Date Diagnosed Date [...] as of this encounter (statuses as of 05/07/2024) Immunizations Name Administration Dates Next Due COVID-19 mRNA, LNP-s, No Pre serve, 2-Dose Series (eBrevia) 08/29/2021,10/03/2020,09/12/2020 Hepatitis B, 20+ yrs 04/27/2022,12/15/2021,11/10 MMR - Measles/Mumps/Rubella Vaccine 01/19/2022,0 11/17/2021 Seasonal Influenza Virus Vac cine, Unspecified Formulation 07/11/2020 Seasonal Influenza, PF, 6 M & above, IM , (FluLaval or Fluzone) 07/19/2022,06/21/2021,06/30/2019 Seasonal Influenza, QUAD, wi th Preserv, 6 mons & Above, 0.5 mL, IM 06/26/2017 Seasonal Influenza, Split, I IV3, With Preserve, Inj 06/26/2018,06/16/2014,07/17/2013 TDAP (age 10 and older)(Boostrix) 05/28/2014 documented [...] encounter Miscellaneous Notes * Telephone Encounter - Ashleigh Pedroza OSA - 05/07/2024 9:37 AM EDT Deric, Patient returning call stating someone called regarding her last appointment on May 05 and had a couple questions to ask her. If someone can please give her a call back at [phone]. Thank You documented in this encounter Plan of Treatment Upcoming Encounters Date Type Department Care Team (Late st Contact Info) Description 05/07/2024 12:40 PM EDT Office Visit Podiatry [facility] [address] [place] [address] Rowena Mckee DPM [address] [place] [address] 06/04/2024 11:30 AM EDT Telemedicine [facility] [place] [address] [address] [place], [place] [phone] Rachael Cortez, RDJuan [address] [place], [place] [phone] 06/25/2024 9:10 AM EDT Office Visit [facility] [address] [place] [address] Cinthya Hatfield, [address] [place] [address] 07/03/2024 8:00 AM EDT Telemedicine Nutrition and Weight Management [address] [place] [address] Dina Santamaria CRNP [address] [place] [address] 07/07/2024 8:00 AM EDT Office Visit Dermatology [facility] [place] [address] [place] [address] Armando Balderas MD [address] [place] [address] Health Maintenance Due Date Last Done Comments COVID-19 Vaccine ( season) 2023 08/29/2021, 10/03/2020, 09/12/2020 Influenza Vaccine (FLU shot) (#1) 2024 07/19/2022, 07/19/2022, 06/21/2021, Additional history exists DTaP,Tdap,and Td Vaccines (2 - Td or Tdap) 05/28/2024 [...] filedocumented as of this encounter Care Teams Rn Office Relationship Specialty Start Date End Date Cinthya Hatfield DO [address] [place] [address] PCP - General Family Medicine 01/29/24 documented as of this encounter
--- OUTSIDE RECORDS SUMMARY | 2024-09-17 06:15 | External Medical Summary | Summary of Care ---
Author Name Unknown Organization [facility] Address [address] [place] [address] Phone [phone] Care Team Providers Care Service Delivery Analyst Name Role Phone Cinthya Hatfield DO Primary Care Provider [phone] Reason for Visit * Reason Comments NEW [...] adult (HCC) Enoc Nugent DO [address] [place] [address] Sarah Trejo MD [address] [facility] [place] [address] Referral ID Status Reason Start Date Expiration Date Visits Requested Visits Authorized [id number] Pending Review Specialty Services Required 06/09/[phone] Encounter Details Date Type Department Care Team (Late st Contact Info) Description 06/12/2024 2:30 PM EDT Office Visit General Surgery, [facility] [address] [place] [address] Sarah Trejo MD [address] [place] [address] Class 3 severe obesity due [...] as of this encounter (statuses as of 06/16/2024) Medications Medication Sig Dispensed Refills Start Date [...] skin once a week. 9 mL 2 05/13/2024 Active Fluorometholone 0.1 % Ophthalmic Suspension (FML) INSTILL 1 DROP INTO AFFECTED EYE(S) 4 TIMES DAILY FOR 2 WEEKS 03/24/2024 06/16/2024 Discontinued (Patient preference/d iscontinuati on) Wegovy 0.5 MG/0.5ML Subcutaneous Solution Auto-injector (Semaglutide-Weigh t Management) Inject 0.5 mg (1 pen) under the skin once a week. 2 mL 3 04/27/2024 06/16/2024 Discontinued (Patient preference/d iscontinuati on) documented as of this encounter (statuses as of 06/16/2024) Active Problems Problem Noted Date Diagnosed Date [...] as of this encounter (statuses as of 06/16/2024) Resolved Problems Problem Noted Date Diagnosed Date [...] as of this encounter (statuses as of 06/16/2024) Immunizations Name Administration Dates Next Due COVID-19 mRNA, LNP-s, No Pre serve, 2-Dose Series (DonorPath) 08/29/2021,10/03/2020,09/12/2020 Hepatitis B, 20+ yrs 04/27/2022,12/15/2021,11/10 MMR [...] from the original note were not included. [facility] CLINIC VISIT AT [facility] DATE: 06/12/24 Dina Acosta [id number] 33 year old PCP: Cinthya Hatfield DO Consult requested by: Rachael Cortez RDN CC: Dina Acosat comes to see me in [facility]ariat[facility] for evaluation of morbid obesity. HPI: This patient has been successfully treated in the [facility] for the past 5 [...] ECG Ventricular Rate: 70 Atrial Rate: 70 MN Interval: 136 QRS Duration: 80 QT/QTc: 390/421 ms P-R-T [place]: 27 : 20 : 25 degrees US [...] Refill Excedrin Migraine 250-250-65 MG Oral Tablet (Suiyppx-Mcbfztogezohg-Vkyzzbhd) Take 1 Tablet by mouth3 times a [...] intestinal metaplasia, mild gastric irritation, repeat 1 yr/[facility] EGD, FLEXIBLE, DIAGNOSTIC 11/26/2019 mild gastric irritation, repeat 5 yrs / [facility] EGD, FLEXIBLE, DIAGNOSTIC N/A 05/01/2024 ESOPHAGOGASTRODUODENOSCOPY (EGD), FLEXIBLE, TRANSORAL, DIAGNOSTIC performed by Matthew Solomon MD at OR [facility] REMOVE FOOT TENDON LESION Left 07/28/2021 EXCISION LESION TENDON FOOT performed by Rowena Mckee DPM at OR [facility] REMOVE FOOT TENDON LESION Left 11/30/2022 EXCISION LESION TENDON FOOT performed by Rowena Mckee DPM at OR [facility] REMOVE TONSILS & ADENOIDS, AGE 12+ Bilateral 06/21/2015 TONSILLECTOMY AND ADENOIDECTOMY AGE 12 OR OVER performed by Remberto Pennington DO at OR [facility] Social History Socioeconomic History Marital status: Single [...] History Narrative Lives with grandparents. 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 REVIEW OF SYSTEMS: Endocrine Diabetes Mellitis? No [...] respect to expected weight loss and BMI change director a year period postoperatively. We also reviewed [...] been discussed with the patient and or business services representative who seem to understand and [...] includes following up with our service in [place] at [facility] for any and all post operative complications [...] discussed with the patient or the patient's business services representative. No promises or guarantees have [...] nausea, vomiting, or abdominal pain possibly requiring termite technician medications. Bleeding possible requiring transfusion of blood [...] Preop orders placed in EPIC with H&P: NO 22) Pre-anesthesia orders placed: NO 23) Consent completed: YES; Date 06/12/24 24) Patient instruction sheet completed: YES 25) Postop Day #1 Discharge Candidate? Is the patient less than 60 years of age? YES Does the patient live within 90 minutes of the hospital? YES Is the patient committed to calling with any clinical problems and returning to [facility] if problems develop or they are advised [...] M.D. Minimally Invasive Foregut and Bariatric Surgeon [facility] Office documented in this encounter Nursing Notes [...] and Weight Management [address] [place] [address] Dina Santamaria, JUNO [address] [place] [address] 07/07/2024 8:00 AM EDT Office Visit Dermatology [facility] [address] [facility] [place] [address] Armando Balderas MD [address] [facility] [place] [id number] 08/04/2024 7:45 AM EST Hospital Encounter OR [facility], OPERATING ROOM [facility], [address] [place] [phone] Sarah Trejo MD [address], [place] [phone] 08/04/2024 7:45 AM EST - 08/04/2024 1:40 PM EST Surgery OR [facility], OPERATING ROOM [facility], [address] [facility] [place] [id number] Sarah Trejo MD [address], [place] [phone] LAPAROSCOPIC GASTRIC RESTRICTIVE PROCEDURE PARTIAL GASTRECTOMY PYLORUS PRESERVING SINGLE ANASTOMOSIS 08/21/2024 10:30 AM EST Office Visit General Surgery, [facility] [address] [place] [address] Sarah Trejo MD [address] [place] [address] Scheduled Procedures Name Priority Associated [...] adiposity documented in this encounter Care Teams Service Delivery Analyst Relationship Specialty Start Date End Date Cinthya Hatfield DO [address] [place] [address] PCP - General Family Medicine 01/29/24 documented as of this encounter
--- OUTSIDE RECORDS SUMMARY | 2024-09-17 06:15 | External Medical Summary | Summary of Care ---
Author Name Unknown Organization [facility] Address [address] [place] [address] Phone [phone] Care Team Providers Care Telecommunications Administrator Name Role Phone Cinthya Hatfield DO Primary Care Provider [phone] Reason for Visit * Reason Onset Date Comments Returning Call 05/07/2024 Encounter Details Date Type Department Care Team (Late st Contact Info) Description 05/07/2024 Telephone Nutrition & Weight Management, [facility] [address] [place] [address] Josie Dennison PA-C [address] [place] [address] Returning Call Allergies Active Allergy Reactions Criticality Noted Date Comments Amoxicillin 11/23/2005 Diphenhydramine Other (Please comment) High 11/29/19 18 Cephalexin High 04/23/2019 Itchy, hives, throat closing, chest tightness. documented as of this encounter (statuses as of 05/08/2024) Medications Medication Sig Dispensed Refills Start Date [...] as of this encounter (statuses as of 05/08/2024) Active Problems Problem Noted Date Diagnosed Date [...] as of this encounter (statuses as of 05/08/2024) Resolved Problems Problem Noted Date Diagnosed Date [...] as of this encounter (statuses as of 05/08/2024) Immunizations Name Administration Dates Next Due COVID-19 mRNA, LNP-s, No Pre serve, 2-Dose Series ([employer]) 08/29/2021,10/03/2020,09/12/2020 Hepatitis B, 20+ yrs 04/27/2022,12/15/2021,11/10 MMR [...] encounter Miscellaneous Notes * Telephone Encounter - Nikolay Yarbrough LPN - 05/08/2024 12:29 PM EDT Pt informed of the RDN's message below * Telephone Encounter - Sharona Tony OSA - 05/08/2024 12:24 PM EDT Patient was transferred from Nutrition service returning call. Transferred to [facility] in office. * Telephone Encounter - Nikolay Yarbrough LPN - 05/08/2024 12:04 PM EDT Left message for patient to return call. 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 Please call back if there are further questions. Patient would like to discuss time frame for future appts and the surgery and when she could be expecting it so that she can make arrangements for work. * Telephone Encounter - Ashleigh Pedroza OSA - 05/07/2024 9:37 AM EDT Deric, Patient returning call stating someone called regarding her last appointment on May 05 and had a couple questions to ask her. If someone can please give her a call back at [phone]. Thank You documented in this encounter Plan of Treatment Upcoming Encounters Date Type Department Care Team (Late st Contact Info) Description 06/04/2024 11:30 AM EDT Telemedicine Nutrition and Weight Management, [place] [address] [place] [address] Rachael Cortez, RDN [address] [facility], [place] [address] 06/25/2024 9:10 AM EDT Office Visit [facility] [address] [place] [facility] [place] [address] Cinthya Hatfield, [address] [place], [place] [id number] 07/03/2024 8:00 AM EDT Telemedicine Nutrition and Weight Management [address] [facility] [place] [address] Dina Santamaria CRNP [address] [place] [address] 07/07/2024 8:00 AM EDT Office Visit Dermatology [facility] [place] [address] [facility] [place] [address] Armando Balderas MD [address] [facility] [place] [address] Health Maintenance Due Date Last Done Comments COVID-19 Vaccine (2022- season) 2023 08/29/2021, 10/03/2020, 09/12/2020 Influenza Vaccine [...] filedocumented as of this encounter Care Teams Telecommunications Administrator Relationship Specialty Start Date End Date Cinthya Hatfield DO [address] [place] [address] PCP - General Family Medicine 01/29/24 documented as of this encounter
--- OUTSIDE RECORDS SUMMARY | 2024-09-17 06:15 | External Medical Summary | Summary of Care ---
Author Name Unknown Organization [facility] Address [address] [place] [address] Phone [phone] Care Team Providers Care County Director Welfare Name Role Phone Cinthya Hatfield DO Primary Care Provider Reason for Visit * Reason Onset Date Comments Returning Call 05/07/2024 Encounter Details Date Type Department Care Team (Late st Contact Info) Description 05/07/2024 Telephone Nutrition & Weight Management, [facility] [address] [place] [address] Josie Dennison PA-C [address] [place] [address] Returning Call Allergies Active Allergy Reactions Criticality [...] mRNA, LNP-s, No Pre serve, 2-Dose Series ([employer]) 08/29/2021,10/03/2020,09/12/2020 Hepatitis B, 20+ yrs 04/27/2022,12/15/2021,11/10 MMR [...] encounter Miscellaneous Notes * Telephone Encounter - Marian Grullon OSA [...] please give her a call back at [phone]. Thank You documented in this encounter Plan of Treatment Upcoming Encounters Date Type Department Care Team (Late st Contact Info) Description 06/04/2024 11:30 AM EDT [facility] [address] [place] [address] Rachael Cortez, RDN [address] [place], [place] [phone] 06/25/2024 9:10 AM EDT Office Visit [address] [phone] Cinthya Hatfield, [address] [place] [address] 07/03/2024 8:00 AM EDT Telemedicine Nutrition and Weight Management [address] [place] [address] Dina Santamaria CRNP [address] [place] [address] 07/07/2024 8:00 AM EDT Office Visit Dermatology [facility] [place] [address] [place] [address] Armando Balderas MD 200 [facility] [place] [address] Health Maintenance Due Date Last Done Comments [...] filedocumented as of this encounter Care Teams County Director Welfare Relationship Specialty Start Date End Date Cinthya Hatfield DO [address] [facility] [place] [address] PCP - General Family Medicine 01/29/24 documented as of this encounter
--- OUTSIDE RECORDS SUMMARY | 2024-09-17 06:15 | External Medical Summary | Summary of Care ---
Author Name Unknown Organization [facility] Address [address] [place] [address] Phone [phone] Care Team Providers Care Honing Machine Set Up Operator Tool Name Role Phone Cinthya Hatfield DO Primary Care Provider [phone] Reason for Visit * Reason Onset Date Comments Returning Call 05/07/2024 Encounter Details Date Type Department Care Team (Late st Contact Info) Description 05/07/2024 Telephone Nutrition & Weight Management, [facility] [address] [place] [address] Josie Dennison PA-C [address] [place] [address] Returning Call Allergies Active Allergy Reactions Criticality [...] mRNA, LNP-s, No Pre serve, 2-Dose Series ([employer]) 08/29/2021,10/03/2020,09/12/2020 Hepatitis B, 20+ yrs 04/27/2022,12/15/2021,11/10 MMR [...] Pedroza OSA - 05/07/2024 9:37 AM EDT Hello, Patient returning call stating someone called regarding her last appointment on May 05 and had a couple questions to ask her. If someone can please give her a call back at [phone]. Thank You documented in this encounter Plan of Treatment Upcoming Encounters Date Type Department Care Team (Late st Contact Info) Description 06/04/2024 11:30 AM EDT Telemedicine Nutrition and Weight Management, [place] [address] [place] [address] Rachael Cortez RDN [address] [place], [place] [phone] 06/25/2024 9:10 AM EDT Office Visit [place] [address] [place] [address] Cinthya Hatfield DO [address] [place] [address] 07/03/2024 8:00 AM EDT Telemedicine Nutrition and Weight Management [address] [facility] [place] [address] Dina Santamaria CRNP [address] [place] [address] 07/07/2024 8:00 AM EDT Office Visit Dermatology [facility] [address] [facility] [place], [place] [address] Armando Balderas MD [address] [facility] [place], [place] [address] Health Maintenance Due Date Last Done Comments [...] filedocumented as of this encounter Care Teams Honing Machine Set Up Operator Tool Relationship Specialty Start Date End Date Cinthya Hatfield DO [address] [place] [address] PCP - General Family Medicine 01/29/24 documented as of this encounter
--- OUTSIDE RECORDS SUMMARY | 2024-09-17 06:15 | External Medical Summary | Summary of Care ---
Author Name Unknown Organization [facility] Address [address] [place] [address] Phone [phone] Care Team Providers Care Rn Medical Inpatient Services Name Role Phone Cinthya Hatfield DO Primary Care Provider Reason for Visit * Reason Comments Follow Up Lump on left foot Encounter Details Date Type Department Care Team (Late st Contact Info) Description 05/07/2024 12:40 PM EDT Office Visit Podiatry [facility] [address] [place] [address] Rowena Mckee DPM [address] [place] [address] Left foot pain*; Ganglion cyst Allergies Active Allergy Reactions Criticality Noted Date [...] mRNA, LNP-s, No Pre serve, 2-Dose Series ([employer]) 08/29/2021,10/03/2020,09/12/2020 Hepatitis B, 20+ yrs 04/27/2022,12/15/2021,11/10 MMR [...] No 04/24/2024 Does the household have a [facility] psychiatric center[facility] source of income? (Household - for [...] as of this encounter Progress Notes * Rowena Mckee DPM - 05/07/2024 1:01 PM EDT Podiatry Established Note [facility] Name: Dina Acosta : 1990 Date: 05/07/2024 REASON FOR VISIT: Left foot mass SUBJECTIVE: This patient is a 33 year old female who presents today with complaints of a ganglion cyst to the left foot. Pt states for the past 6 months she has noticed a lump to the left foot where she had this surgically removed twice before. She states this time is feels different and more painful. She is currently going through the process of going through a gastric sleeve. She did have some wound complications with this left foot surgery previously. She is wearing compression socks and closed toed shoes. Has pain with pressure. Denies any other complaints. Past Medical History: Diagnosis Date Anxiety ROSANNE (generalized anxiety disorder) 11/24/2022 Gastritis Migraine headache Migraine with aura and without status migrainosus, not intractable 11/24/2022 PCOS (polycystic ovarian syndrome) 05/27/2012 Seizures (HCC) sees Dr Gutierrez, not on any seizure medication ALLERGIES: Review of patient's allergies indicates: Allergen Reactions Diphenhydramine Other (Please comment) Keflex [Cephalexin] Itchy, hives, throat closing, chest tightness. Amoxicillin REVIEW OF SYSTEMS: CONSTITUTIONAL: No change in weight, No weakness, No fatigue, and No fevers, sweats, or chills EYE: No recent significant change in vision and No eye pain, redness, discharge EARS: No ear pain and No recent change in hearing NOSE: No history of frequent colds or sinusitis and No nasal stuffiness PULMONARY: No cough, sputum, or hemoptysis and No recent change in breathing CARDIOVASCULAR: No chest pain and No shortness of breath EXTREMITIES: Ganglion cyst, left foot SKIN/INTEGUMENTARY: No edema, No rash, and No itching NEUROLOGIC: Normal balance, No headaches, No seizures, and No weakness PSYCHIATRIC: No depression, No anxiety, and No psychosis LEFT FOCUSED PODIATRIC EXAM: Vitals: There were no vitals filed for this visit. General: Patient is awake alert oriented to person place time. No apparent distress. Vascular: DP/PT pulses palpable. CFT < 3 sec 1-5. No edema noted. Temperature gradient is normal warm to cold. Neurologic: Protective sensation intact to light touch. Sensation to sharp/dull is intact. Dermatological: Skin is normal in appearance with no open lesions or interdigital macerations. Nails 1-5 are normalin length and thickness. Pedal hair is noted. Ganglion cyst to the lateral foot measuring approximately 2.0 cm. Musculoskeletal: POP noted to the left foot ganglion cyst. No pain with active or passive ROM of the digits or anklejoint. Muscle strength is 5/5 for all muscle groups of the lower extremity. DIAGNOSTIC STUDIES: None ASSESSMENT: Left foot fallon Ganglion cyst, left foot PLAN: - Verbal consent was obtained and an aspiration was performed to the left foot. Approximately 2 cc of ganglion cyst contents were removed. A compressive dressing was then applied. - Discussed possible repeat surgical intervention, however, risks discussed with her upcoming gastric sleeve and previous complications of wound healing. We can aspirate this as much as she would like until after her surgical procedure. Pt states understanding and agrees. - Activity to tolerance - OTC pain medication PRN. - Continue with good, supportive shoes. - Pt to RTC PRN. Instructed to call with any problems or questions. Rowena Mckee DPM documented in this encounter Nursing Notes * Rowena Butler MED ASSIST - 05/07/2024 12:39 PM EDT Here for follow up on left foot lump. documented in this encounter Plan of Treatment Upcoming Encounters Date Type Department Care Team (Late st Contact Info) Description 06/04/2024 11:30 AM EDT Telemedicine Nutrition and Weight Management, [place] [address] [place] [address] Rachael Cortez RDN [address] [place] [address] 06/25/2024 9:10 AM EDT Office Visit [address] [phone] Cinthya Hatfield DO [address] [place] [address] 07/03/2024 8:00 AM EDT Telemedicine Nutrition and Weight Management [address] [place] [address] [address] Dina Santamaria CRNP [address] [place] [address] 07/07/2024 8:00 AM EDT Office Visit Dermatology [facility] [place] [address] [facility] [place] [address] Armando Balderas MD 200 [facility] [place] [address] Health Maintenance Due Date Last Done Comments [...] as of this encounter Visit Diagnoses Diagnosis Left foot pain- Primary Pain in limb Ganglion cyst Ganglion, unspecified documented in this encounter Care Teams Rn Medical Inpatient Services Relationship Specialty Start Date End Date Cinthya Hatfield DO [address] [place] [address] PCP - General Family Medicine 01/29/24 documented as of this encounter
--- OUTSIDE RECORDS SUMMARY | 2024-09-17 06:15 | External Medical Summary | Summary of Care ---
Author Name Unknown Organization [facility] Address [address] [place] [address] Phone [phone] Care Team Providers Care Bottom Finisher Name Role Phone Cinthya Hatfield DO Primary Care Provider [phone] Reason for Referral * Evaluate & Treat - Unlimited Visits (Within 30 days (routine)) - Pending Review Specialty Diagnoses / Procedures Referred By Ashleigh bob Referred To Contact General Surgery Diagnoses Class 3 severe obesity due to excess calories without serious comorbidity with body mass index (BMI) of 60.0 to 69.9 in adult (HCC) Enoc Nugent DO [address] [place] [address] Sarah Trejo MD [address] [place] [address] Referral ID Status Reason Start Date Expiration Date Visits Requested Visits Authorized [id number] Pending Review Specialty Services Required 06/09/[phone] Question Answer Referral Priority Within 30 days (routine) Where should this appointment be scheduled? [facility] What condition is the patient being seen for? MIS/Bariatric What condition is the patient being seen for? Bariatric Surgery Comments Green Light Status Dr. Trejo, already scheduled Encounter Details Date Type Department Care Team (Late st Contact Info) Description 06/09/2024 Orders Only General Surgery, [place] [address] [place], [place] [phone] Enoc Nugent DO [address] [place] [address] Class 3 severe obesity due to excess calories without serious comorbidity with body mass index (BMI) of 60.0 to 69.9 in adult (HCC)* Allergies Active Allergy Reactions Criticality Noted Date Comments Amoxicillin 11/23/2005 Diphenhydramine Other (Please comment) High 11/29/19 18 Cephalexin High 04/23/2019 Itchy, hives, throat closing, chest tightness. documented as of this encounter (statuses as of 06/09/2024) Medications Medication Sig Dispensed Refills Start Date [...] the morning. 90 Tablet 3 09/26/2023 Active Fluorometholone 0.1 % Ophthalmic Suspension (FML) [...] Additional Information Patient not taking.Reported on 05/01/2024 Semaglutide(0.25 or 0.5MG/DOS) 2 MG/3ML Solution Pen-injector (Ozempic) Inject 0.5 mg under the skin once a week. 9 mL 2 05/13/2024 Active documented as of this encounter (statuses as of 06/09/2024) Active Problems Problem Noted Date Diagnosed Date [...] as of this encounter (statuses as of 06/09/2024) Resolved Problems Problem Noted Date Diagnosed Date [...] as of this encounter (statuses as of 06/09/2024) Immunizations Name Administration Dates Next Due COVID-19 mRNA, LNP-s, No Pre serve, 2-Dose Series ([employer]) 08/29/2021,10/03/2020,09/12/2020 Hepatitis B, 20+ yrs 04/27/2022,12/15/2021,11/10 MMR - Measles/Mumps/Rubella Vaccine 01/19/2022,0 11/17/2021 Seasonal Influenza Virus Vac cine, Unspecified Formulation 07/11/2020 Seasonal Influenza, PF, 6 M & above, IM , (FluLaval or Fluzone) 07/19/2022,06/21/2021,06/30/2019 Seasonal Influenza, QUAD, wi th Preserv, 6 mons & Above, 0.5 mL, IM 06/26/2017 Seasonal Influenza, Trivalen t, (IIV3), with Preserv, (Fluzone) 06/26/2018,06/16/2014,07/17/2013 TDAP (age 10 and older)(Boostrix) 05/28/2014 [...] 2:30 PM EDT Office Visit General Surgery, [facility] [address] [facility] [place] [address] Sarah Trejo MD [address] [place], [place] [phone] 06/25/2024 9:10 AM EDT Office Visit [address] [phone] Cinthya Hatfield DO [address] [place] [address] 07/03/2024 8:00 AM EDT Telemedicine Nutrition and Weight Management [address] [place] [address] Dina Santamaria CRNP [address] [place] [address] 07/07/2024 8:00 AM EDT Office Visit Dermatology [facility] [address] [facility] [place] [address] Armando Balderas MD [address] [place] [address] Scheduled Referrals Name Type Priority Associated Diagnoses Orde r Schedule SURGERY REFERRAL OP Referral Within 30 da ys (routine) Class 3 severe obesity due to excess calories without serious comorbidity with body mass index (BMI) of 60.0 to 69.9 in adult (HCC) Ordered: 06/09/2024 Health Maintenance Due Date Last Done Comments [...] (BMI) of 60.0 to 69.9 in adult (HCC)- Primary documented in this encounter Care Teams Bottom Finisher Relationship Specialty Start Date End Date Cinthya Hatfield DO [address] [place] [address] PCP - General Family Medicine 01/29/24 documented as of this encounter
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
--- OUTSIDE RECORDS SUMMARY | 2024-09-17 06:15 | External Medical Summary | Summary of Care ---
Author Name Unknown Organization [facility] Address [address] [place] [address] Phone [phone] Care Team Providers Care Aeronautical Products Sales Engineer Name Role Phone Cinthya Hatfield DO Primary Care Provider Reason for Visit * Reason Onset Date Comments Returning Call 05/07/2024 Encounter Details Date Type Department Care Team (Late st Contact Info) Description 05/07/2024 Telephone Nutrition & Weight Management, [facility] [address] [place] [address] Josie Dennison PA-C [address] [place] [address] Returning Call Allergies Active Allergy Reactions Criticality [...] mRNA, LNP-s, No Pre serve, 2-Dose Series ([employer]ite[employer]) 08/29/2021,10/03/2020,09/12/2020 Hepatitis B, 20+ yrs 04/27/2022,12/15/2021,11/10 MMR [...] encounter Miscellaneous Notes * Telephone Encounter - Anjana Saunders RDN - 05/08/2024 11:27 AM EDT Her MBS smartform needs to be completed, still has a yellow from [facility] scheduled 06/04/[address] for light [...] please give her a call back at [phone]. Thank You documented in this encounter Plan of Treatment Upcoming Encounters Date Type Department Care Team (Late st Contact Info) Description 06/04/2024 11:30 AM EDT Telemedicine Nutrition and Weight Management, [place] [address] [place], [place] [phone] Rachael Cortez RDN [address] [place], [place] [phone] 06/25/2024 9:10 AM EDT Office Visit [facility] [address] [place] [address] Cinthya Hatfield DO [address] [place] [address] 07/03/2024 8:00 AM EDT Telemedicine Nutrition and Weight Management [address] [place] [address] Dina Santamaria, JUNO [address] [place] [address] 07/07/2024 8:00 AM EDT Office Visit Dermatology [facility] [address] [facility] [place] [address] Armando Balderas MD [address] [facility] [place] [address] Health Maintenance Due Date Last Done Comments [...] filedocumented as of this encounter Care Teams Aeronautical Products Sales Engineer Relationship Specialty Start Date End Date Cinthya Hatfield DO [address] [place] [address] PCP - General Family Medicine 01/29/24 documented as of this encounter
--- OUTSIDE RECORDS SUMMARY | 2024-09-17 06:15 | External Medical Summary | Summary of Care ---
Author Name Unknown Organization [facility] Address [address] [place] [address] Phone [phone] Care Team Providers Care Jira Administrator Name Role Phone Cinthya Hatfield DO Primary Care Provider [phone] Reason for Visit * Reason Onset Date Comments Returning Call 05/07/2024 Encounter Details Date Type Department Care Team (Late st Contact Info) Description 05/07/2024 Telephone Nutrition & Weight Management, [facility] [address] [place] [address] Josie Dennison PA-C [address] [place] [address] Returning Call Allergies Active Allergy Reactions Criticality [...] mRNA, LNP-s, No Pre serve, 2-Dose Series ([employer]) 08/29/2021,10/03/2020,09/12/2020 Hepatitis B, 20+ yrs 04/27/2022,12/15/2021,11/10 MMR [...] please give her a call back at [phone]. Thank You documented in this encounter Plan of Treatment Upcoming Encounters Date Type Department Care Team (Late st Contact Info) Description 06/04/2024 11:30 AM EDT [facility] [place] [address] [place] [address] Rachael Cortez, RDN [address] [place], [place] [phone] 06/25/2024 9:10 AM EDT Office Visit [address] [phone] Cinthya Hatfield, [address] [place] [address] 07/03/2024 8:00 AM EDT Telemedicine Nutrition and Weight Management [address] [place] [address] Dina Santamaria CRNP [address] [place] [address] 07/07/2024 8:00 AM EDT Office Visit Derm[facility]ology [facility] [address] [place] [address] Armando Balderas MD [address] [facility] [place] [address] Health Maintenance Due Date Last Done Comments [...] filedocumented as of this encounter Care Teams Jira Administrator Relationship Specialty Start Date End Date Cinthya [place]field DO [address] [facility] [place] [address] PCP - General Family Medicine 01/29/24 documented as of this encounter
--- OUTSIDE RECORDS SUMMARY | 2024-09-17 06:15 | External Medical Summary | Summary of Care ---
Author Name Unknown Organization [facility] Address [address] [place] [address] Phone [phone] Care Team Providers Care Corporate Affairs Manager Name Role Phone Cinthya Hatfield DO Primary Care Provider [phone] Reason for Visit * Reason Onset Date Comments Returning Call 05/07/2024 Encounter Details Date Type Department Care Team (Late st Contact Info) Description 05/07/2024 Telephone Nutrition & Weight Management, [facility] [address] [place] [address] Josie Dennison PA-C [address] [place] [address] Returning Call Allergies Active Allergy Reactions Criticality [...] mRNA, LNP-s, No Pre serve, 2-Dose Series ([employer]) 08/29/2021,10/03/2020,09/12/2020 Hepatitis B, 20+ yrs 04/27/2022,12/15/2021,11/10 MMR [...] encounter Miscellaneous Notes * Telephone Encounter - Sharona Tony OSA - 05/08/2024 12:24 PM EDT Patient was transferred from Nutrition service returning call. Transferred to [facility] in office. * Telephone Encounter - [...] please give her a call back at [phone]. Thank You documented in this encounter Plan of Treatment Upcoming Encounters Date Type Department Care Team (Late st Contact Info) Description 06/04/2024 11:30 AM EDT Telemedicine Nutrition and Weight Management, [place] [address] [place] [address] Rachael Cortez RDN [address] [place] [address] 06/25/2024 9:10 AM EDT Office Visit [facility] [address] [place] [phone] Cinthya Hatfield DO [address] [place] [address] 07/03/2024 8:00 AM EDT Telemedicine Nutrition and Weight Management [address] [place] [address] Dina Santamaria CRNP [address] [place] [address] 07/07/2024 8:00 AM EDT Office Visit Dermatology [facility] 200 [facility] [place] [address] Armando Balderas MD 200 [facility] [place] [address] Health Maintenance Due Date Last Done Comments [...] filedocumented as of this encounter Care Teams Corporate Affairs Manager Relationship Specialty Start Date End Date Cinthya [place]field DO [address] [place] [address] PCP - General Family Medicine 01/29/24 documented as of this encounter
--- OUTSIDE RECORDS SUMMARY | 2024-09-17 06:15 | External Medical Summary | Summary of Care ---
Author Name Unknown Organization [facility] Address [address] [place] [address] Phone [phone] Care Team Providers Care Drier Operator Helper Name Role Phone Rosamary annCassiusa Jeremy OROZCO Primary Care Provider Reason for Visit * Reason Comments Follow Up Dosage Adjustment Via Phone (anticoag Cl inic) Encounter Details Date Type Department Care Team (Late st Contact Info) Description 06/22/2024 1:40 PM EDT Telemedicine Endocrinology [facility], [place] [address] [place] [address] [place], Pharmacist Endocrinology [address] [place] [address] Class 3 severe obesity due to excess calories without serious comorbidity with body mass index (BMI) of 50.0 to 59.9 in adult (HCC)* Allergies Active Allergy Reactions Criticality Noted Date Comments Amoxicillin 11/23/2005 Diphenhydramine Other (Please comment) High 11/29/19 18 Cephalexin High 04/23/2019 Itchy, hives, throat closing, chest tightness. documented as of this encounter (statuses as of 06/22/2024) Medications Medication Sig Dispensed Refills Start Date [...] (BMI) of 50.0 to 59.9 in adult ([facility]) Inject 0.5 mg under the skin once a week. 9 mL 2 06/22/2024 Active Semaglutide(0.25 or 0.5MG/DOS) 2 MG/3ML Solution Pen-injector (Ozempic) Inject 0.5 mg under the skin once a week. 9 mL 2 05/13/2024 06/22/2024 Discontinued (Refill) documented as of this encounter (statuses as of 06/22/2024) Active Problems Problem Noted Date Diagnosed Date [...] as of this encounter (statuses as of 06/22/2024) Resolved Problems Problem Noted Date Diagnosed Date [...] as of this encounter (statuses as of 06/22/2024) Immunizations Name Administration Dates Next Due COVID-19 mRNA, LNP-s, No Pre serve, 2-Dose Series ([employer]) 08/29/2021,10/03/2020,09/12/2020 Hepatitis B, 20+ yrs 04/27/2022,12/15/2021,11/10 MMR [...] as of this encounter Progress Notes * Iliana StinsonPeri - 06/22/2024 3:00 PM EDT GLP-1 Medication Therapy Status Check After connecting to the patient via telephone, the patient was identified by name and date of . Patient was then informed that this was a telephone call only visit. The patient agreed to participate Visit Disposition: Status check Duration: 3 minutes Name: Dina Acosta Diagnosis: Obesity Current GLP1 therapy: Ozempic 0.5mg weekly OBJECTIVE Estimated body mass index is 55.24 kg/m as calculated from the following: Height as of 05/01/24: 1.778 m (5' 10"). Weight as of 06/12/24: 174.6 kg (385 lb). BP Readings from Last 3 Encounters: 06/12/24 141/74 05/01/24 123/63 04/23/24 116/86 Hemoglobin AIC Results: Lab Results Component Value Date/Time HEMOGLOBIN A1C - [facility] 5.0 04/02/2024 10:22 AM HEMOGLOBIN A1C - [facility] 5.4 09/26/2023 11:52 AM HEMOGLOBIN A1C - [facility] 5.4 01/11/2023 09:45 AM HEMOGLOBIN A1C - [facility] 5.3 03/17/2019 01:14 PM HEMOGLOBIN A1C - [facility] 5.0 12/16/2015 08:29 AM No results found for: "MICROALBUMIN" MEDICATION USE ASSESSMENT Patient is adherent to current prescribed dose of GLP1 therapy? Yes, patient taking as prescribed Allergic / Local Reactions Reported: No Side Effects Reported: No side effects, tolerating well PLAN The patient was educated on when to contact provider with change of symptoms or tolerability to medication. Continue medication as prescribed. Iliana Stinson [facility] Clinical Pharmacist Medication Therapy Disease Management 06/22/2024,3:00 PM documented in this encounter Plan of Treatment Upcoming Encounters Date Type Department Care Team (Latest Contact Info) Description 07/03/2024 8:00 AM EDT Telemedicine Nutrition and Weight Management [address] [place] [address] Dina Santamaria CRNP [address] [place] [address] 07/07/2024 8:00 AM EDT Office Visit Dermatology [facility] [address] [facility] [place] [address] Armando Balderas MD [address] [facility] [place] [address] 07/17/2024 8:00 AM EDT Telemedicine Nutrition & Weight Management, [place] [address] [place] [address] Lidya Gabriel MD [address] [place], [place] [phone] 08/04/2024 7:45 AM EST Hospital Encounter [place] [facility], OPERATING ROOM [facility], [facility] [address] [place] [phone] Sarah Trejo MD [address] [place] [address] 08/04/2024 7:45 AM EST - 08/04/2024 1:40 PM EST Surgery [facility], OPERATING ROOM [facility], [facility] [address] [place] [address] Sarah Trejo MD [address] [place], [place] [phone] LAPAROSCOPIC GASTRIC RESTRICTIVE PROCEDURE PARTIAL GASTRECTOMY PYLORUS PRESERVING SINGLE ANASTOMOSIS 08/21/2024 8:40 AM EST Nutrition Services Nutrition & Weight Management, [facility] [address] [facility] [place] [address] Anjana Saunders RDN [facility] [place] [address] 08/21/2024 9:00 AM EST Office Visit Nutrition & Weight Management, [facility] [address] [place] [address] Josie Dennison PA-C [address] [place] [address] 08/21/2024 10:30 AM EST Office Visit General Surgery, [facility] [address] [place] [address] Sarah Trejo MD [address] [facility] [address] Scheduled Procedures Name Priority Associated Diagnoses Date/Ti [...] 50.0 to 59.9 in adult (HCC)- Primary Class 3 severe obesity due to excess calories without serious comorbidity with body mass index (BMI) of 50.0 to 59.9 in adult (HCC) Super obese Morbid obesity PCOS (polycystic ovarian syndrome) Polycystic ovaries Hyperinsulinemia Other specified hypoglycemia Central obesity Localized adiposity documented in this encounter Care Teams Drier Operator Helper Relationship Specialty Start Date End Date Cinthya [place]field DO [address] [place] [address] PCP - General Family Medicine 01/29/24 documented as of this encounter
--- OUTSIDE RECORDS SUMMARY | 2024-09-17 06:15 | External Medical Summary | Summary of Care ---
Author Name Unknown Organization [facility] Address [address] [place] [address] Phone [phone] Care Team Providers Care Spanish Moss Picker Name Role Phone EzequielCinthya rizo Jeremy OROZCO Primary Care Provider Reason for Visit * Reason Comments Weight Management Encounter Details Date Type Department Care Team (Late st Contact Info) Description 06/04/2024 11:30 AM EDT Telemedicine [place] [address] [place], [place] [phone] Rachael Cortez, RDN [address] [place] [address] Body mass index (BMI) of 50-59.9 in adult ([facility])*; Morbid obesity due to excess calories ([facility]) Allergies Active Allergy Reactions Criticality Noted Date [...] mRNA, LNP-s, No Pre serve, 2-Dose Series ([employer]) 08/29/2021,10/03/2020,09/12/2020 Hepatitis B, 20+ yrs 04/27/2022,12/15/2021,11/10 MMR [...] 06/04/2024 11:33 AM EDT Bariatric pre-surgery appt M.dot Name: Dina Acosta [facility] [place] [facility]: 06/04/24 Time: 11:30 am Patient location: HOME. I was in a hospital or clinic location. After connecting through [employer],patient was verified with two unique identifiers. Patient (or authorized legal sales representative cash registers) was then informed that this was a [...] and the grocery shopping. 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 Barriers To Learning: None Special Education Needs: [...] (Lexapro) Excedrin Migraine 250-250-65 MG Oral Tablet (Kixucnf-Ybcfymtigjesl-Jjdxdony) Supplements: Can drink a herbal supplement "Skinny [...] with PB Lunch: salad (premade salad from [employer] will have half for lunch) with protein [...] month with anyone Patient advised to use [employer]++ portal to send any follow up questions. Rachael Cortez RD 06/04/2024 documented in this encounter Plan of Treatment Upcoming Encounters Date Type Department Care Team (Late st Contact Info) Description 06/25/2024 9:10 AM EDT Office Visit [place] [address] [facility] [address] Cinthya [place] [facility] [address] [facility] [address] 07/03/2024 8:00 AM EDT Telemedicine Nutrition and Weight Management [address] [place] [address] Dina Santamaria CRNP [address] [place] [address] 07/07/2024 8:00 AM EDT Office Visit Dermatology [facility] Mariya Christine [address] [facility] [place] [address] Armando Balderas MD [address] [facility] [place] [address] Health Maintenance Due Date Last Done Comments [...] (HCC) documented in this encounter Care Teams Spanish Moss Picker Relationship Specialty Start Date End Date Cinthya Hatfield DO [address] [place] [address] PCP - General Family Medicine 01/29/24 documented as of this encounter
--- OUTSIDE RECORDS SUMMARY | 2024-09-17 06:15 | External Medical Summary | Summary of Care ---
Author Name Unknown Organization [facility] Address [address] [place] [address] Phone [phone] Care Team Providers Care Workers Compensation Administrator Name Role Phone Cinthya Hatfield DO Primary Care Provider [phone] Reason for Visit * Reason Onset Date Comments Returning Call 05/07/2024 Encounter Details Date Type Department Care Team (Late st Contact Info) Description 05/07/2024 Telephone Nutrition & Weight Management, [facility] [address] [place] [address] Josie Dennison PA-C [address] [place] [address] Returning Call Allergies Active Allergy Reactions Criticality [...] mRNA, LNP-s, No Pre serve, 2-Dose Series ([employer]) 08/29/2021,10/03/2020,09/12/2020 Hepatitis B, 20+ yrs 04/27/2022,12/15/2021,11/10 MMR [...] please give her a call back at [phone]. Thank You documented in this encounter Plan of Treatment Upcoming Encounters Date Type Department Care Team (Late st Contact Info) Description 06/04/2024 11:30 AM EDT [facility] [address] [place] [address] Rachael Cortez, RDN [address], [place] [id number] 06/25/2024 9:10 AM EDT Office Visit [address] [phone] Cinthya Hatfield, [address] [place] [address] 07/03/2024 8:00 AM EDT Telemedicine Nutrition and Weight Management [address] [place] [address] Dina Santamaria CRNP [address] [place] [address] 07/07/2024 8:00 AM EDT Office [facility] [place] [address] [place] [address] Armando Balderas MD [address] [facility] [place] [address] Health Maintenance Due Date Last Done Comments [...] filedocumented as of this encounter Care Teams Workers Compensation Administrator Relationship Specialty Start Date End Date Cinthya Hatfield DO 132 [facility] [place] [address] PCP - General Family Medicine 01/29/24 documented as of this encounter
--- OUTSIDE RECORDS SUMMARY | 2024-09-17 06:15 | External Medical Summary | Summary of Care ---
Author Name Unknown Organization [facility] Address [address] [place] [address] Phone [phone] Care Team Providers Care Top Cleaner Name Role Phone Rosamary ann Cinthya Jeremy OROZCO Primary Care Provider Reason for Visit * Reason Onset Date Comments Bariatric - [facility] 06/04/2024 Encounter Details Date Type Department Care Team (Late st Contact Info) Description 06/04/2024 Telephone Nutrition and Weight Management, [facility] [address] [place] [address] Rachael Cortez, RDN [address] [place] [address] [facility] Allergies Active Allergy Reactions Criticality Noted Date [...] mRNA, LNP-s, No Pre serve, 2-Dose Series ([employer]) 08/29/2021,10/03/2020,09/12/2020 Hepatitis B, 20+ yrs 04/27/2022,12/15/2021,11/10 MMR [...] No 04/24/2024 Are you (or your family) laexi eless or worried that you might be [...] encounter Miscellaneous Notes * Telephone Encounter - Rachael Cortez RDN - 06/04/2024 1:44 PM EDT This patient has completed the 6 month pre-operative bariatric surgery process. The patient's insurance coverage is as follows: Payor: [facility] Plan: [facility] CARVEOUT Product Type: *No Product type* Payor: P FAMILY Plan: [facility] FAMILY PLAN [place] Product Type: *No Product type* Please schedule with for bariatric surgery evaluation. Rachael Cortez RDN 06/04/2024 1:44 PM documented in this encounter Plan of Treatment Upcoming Encounters Date Type Department Care Team (Late st Contact Info) Description 06/25/2024 9:10 AM EDT Office Visit [facility] [address] [facility], [place] [phone] Cinthya Hatfield DO [address] [facility] [address] 07/03/2024 8:00 AM EDT Telemedicine Nutrition and Weight Management [address] [place] [address] Dina Santamaria CRNP [address] [place] [place] [address] 07/07/2024 8:00 AM EDT Office Visit [facility] 200 [facility] [place] [facility] [place] [address] Armando Balderas MD 200 [facility] [place] [address] Health Maintenance Due Date Last Done Comments [...] filedocumented as of this encounter Care Teams Top Cleaner Relationship Specialty Start Date End Date Cinthya Hatfield DO [address] [place] [address] PCP - General Family Medicine 01/29/24 documented as of this encounter
--- OUTSIDE RECORDS SUMMARY | 2024-09-17 06:16 | External Medical Summary | Summary of Care ---
Author Name Unknown Organization [facility] Address [address] [place] [address] Phone [phone] Care Team Providers Care Syruper Name Role Phone Cinthya Hatfield DO Primary Care Provider Reason for Visit * Auth/Cert Specialty Diagnoses / Procedures Referred By Ashleigh t Referred To Contact Diagnoses Morbid obesity due to excess calories (HCC) Morbid obesity due to excess calories (HCC) [E66.01] Procedures EGD, FLEXIBLE, DIAGNOSTIC ESOPHAGOGASTRODUODENOSCOPY (EGD), FLEXIBLE, TRANSORAL, DIAGNOSTIC Macy Solomon MD [address] [place] [address] Or [facility] [address] [facility] [place] [address] Referral ID Status Reason Start Date Expiration Date Visits Re quested Visits Authorized [id number] Encounter Details Date Type Department Care Team (Latest Contact Info) Description 05/01/2024 12:01 PM EDT - 05/01/2024 3:19 PM EDT Hospital Encounter OR [facility], Operating Room, Main Hospital - 4th Floor [address] [place] [address] Macy Solomon MD [address] [place] [address] Upper GI Endoscopy Discharge Disposition: Home - Self Care Allergies Active Allergy Reactions Criticality Noted Date Comments Amoxicillin 11/23/2005 Diphenhydramine Other (Please comment) High 11/29/19 18 Cephalexin High 04/23/2019 Itchy, hives, throat closing, chest tightness. documented as of this encounter (statuses as of 05/02/2024) Medications Medication Sig Dispensed Refills Start Date [...] as of this encounter (statuses as of 05/02/2024) Active Problems Problem Noted Date Diagnosed Date [...] as of this encounter (statuses as of 05/02/2024) Resolved Problems Problem Noted Date Diagnosed Date [...] as of this encounter (statuses as of 05/02/2024) Immunizations Name Administration Dates Next Due COVID-19 mRNA, LNP-s, No Pre serve, 2-Dose Series ([employer]) 08/29/2021,10/03/2020,09/12/2020 Hepatitis B, 20+ yrs 04/27/2022,12/15/2021,11/10 MMR [...] Sign Reading Time Taken Comments Blood Pressure 123/63 05/01/2024 2:29 PM EDT Pulse 78 05/01/2024 2:29 PM EDT Temperature 36.2 C (97.2 F) 05/01/2024 2:29 PM ED T Respiratory Rate 18 05/01/2024 2:29 PM EDT Oxygen Saturation 96% 05/01/2024 2:29 PM EDT Inhaled Oxygen Concentration - - Weight 174.2 kg (384 lb) 05/01/2024 12:07 PM EDT Height 177.8 cm (5' 10") 05/01/2024 12:07 PM EDT Body Mass Index 55.1 05/01/2024 12:07 PM EDT documented in this encounter H&P Notes * Macy Solomon MD - 05/01/2024 1:02 PM EDT Endoscopy Pre-Procedure Assessment Name: Dina Acosta Date: 05/01/2024 Time: 1:02 PM Procedure(s): Upper GI Endoscopy; with Indication(s) of pre-op fpor obesity surgery Endoscopy Pre-Procedure Assessment: Prior to the procedure, the patient is identified. The patient's history, medications and allergieshave been reviewed. The patient is competent. The risks and benefits of the proposed procedure and the planned sedation have been discussed with the patient. All questions have been answered and informed consent for the procedure has been obtained. Prior to Admission medications Medication Sig Last Dose Discont. Norgestimate-Eth Estradiol 0.25-35 MG-MCG Oral Tablet (Sprintec 28) Take 1 Tablet by mouth in the morning. In the morning.. Past Week Topiramate 25 MG Oral Tablet (Topamax) Take 1 Tablet by mouth in the morning and 1 Tablet at noon and 1 Tablet in the evening. Past Week Semaglutide(0.25 or 0.5MG/DOS) 2 MG/3ML Solution Pen-injector (Ozempic) Inject 0.5 mg under the skin once a week. 04/24/2024 Montelukast Sodium 10 MG Oral Tablet (Singulair) Take 1 Tablet by mouth in the morning. Past Week Escitalopram Oxalate 10 MG Oral Tablet (Lexapro) Take 1 Tablet by mouth in the morning. Past Week Excedrin Migraine 250-250-65 MG Oral Tablet (Uixlxgb-Qwtrauepczuof-Wgswlpai) Take 1 Tablet by mouth3 times a day as needed for Migraine. Past Week Wegovy 0.5 MG/0.5ML Subcutaneous Solution Auto-injector (Semaglutide-Weight Management) Inject 0.5 mg (1 pen) under the skin once a week. Patient not taking: Reported on 05/01/2024 Not Taking Fluorometholone 0.1 % Ophthalmic Suspension (FML) INSTILL 1 DROP INTO AFFECTED EYE(S) 4 TIMES DAILYFOR 2 WEEKS Patient not taking: Reported on 05/01/2024 Not Taking Review of patient's allergies indicates: Allergen Reactions Diphenhydramine Other (Please comment) Keflex [Cephalexin] Itchy, hives, throat closing, chest tightness. Amoxicillin BP 138/102 | Pulse 76 | Temp 36.9 C (98.4 F) (Temporal Artery) | Resp 18 | Ht 1.778 m (5' 10") | Wt (!) 174.2 kg (384 lb) | SpO2 98% | BMI 55.10 kg/m | BSA 2.93 m Physical Exam: Mental Status Examination: alert and oriented. Airway Examination: normal oropharyngeal airway and neck mobility. Respiratory Examination: clear to auscultation. CV Examination: normal. ASA Grade: III - A patient with severe systemic disease. Abdomen: negative This patient has undergone a preprocedural evaluation. A determination has been made to proceed with the planned procedure under [facility] [place] procedural guidelines and the [facility] Non-Emergent, Elective Medical Services and Treatment Recommendations (published on 12-22-19). The community and hospital prevalence of COVID-19 has been discussed as well as this patient's specific risks associated with SARS-CoV-19 infection. Based upon the clinical acuity and patient-specific care considerations, this procedure is deemed a Tier II - Intermediate acuity treatment or service with either progression or the threat of progressive disease related to the delay in treatment. Not providing the service has the potential for increasing morbidity or mortality. After reviewing the risks and benefits, the patient is deemed in satisfactory condition to undergo the procedure. The anesthesia plan is to use general anesthesia. Macy Solomon MD 05/01/2024 documented in this encounter Procedure Notes * Cinthya Hatfield DO - 05/01/2024 1:22 PM EDTAssociated Order(s): UPPER GI ENDOSCOPY [facility] Patient Name: Dina Acosta Procedure Date: 05/01/2024 1:22 PM Date of : 1990 Admit Type: Outpatient Note Status: Finalized Date of : 1990 Admit Type: Outpatient Age: 33 Room: OR 5 Gender: Female Note Status: Finalized Procedure: Upper GI endoscopy Indications: Preoperative assessment for bariatric surgery to treat morbid obesity Providers: Macy Solomon MD (Doctor) Referring MD: Cinthya Hall DO Medicines: See the Anesthesia note for documentation of the administered medications Complications: No immediate complications. Procedure: Pre-Anesthesia Assessment: - ASA Grade Assessment: III - A patient with severe systemic disease. - See [facility] electronic record for H&P. After obtaining informed consent, the endoscope was passed under direct vision. All instruments were visually inspected immediately before and after removal from the patient to ensure they are fully intact. Throughout the procedure, the patient's blood pressure, pulse, and oxygen saturations were monitored continuously. The GIF-Q190 Endoscope ([id number]) was introduced through the mouth, and advanced to the second part of duodenum. The upper GI endoscopy was accomplished without difficulty. The patient tolerated the procedure well. Findings & Specimens: The Z-line was found [...] duodenum was normal. The papilla was normal. Recommendation: Discharge pt home. Follow up with referring. Macy Solomon MD 05/01/2024 1:53:28 PM This report has been signed electronically. documented in this encounter Nursing Notes * Reji Juarez RN - 05/01/2024 3:17 PM EDT [address] [address] SameDay Surgery Discharge Note Name: Dina Acosta Date: 05/01/2024 Time: 1517 PM Discharge Disposition: Home Responsible adult as escort home: grandmother Transport Mode: Ambulatory - Patient declined Wheelchair Accompanied by: Checo Juarez RN To: Car Belongings with patient: Yes Patient meets criteria to be transferred or discharged. Pt s/p EGD, tolerated procedure well. VSS. No c/o pain. Instructions reviewed, pt verbalized understanding. Escorted off unit in stable condition, grandmother providing transport home. * Yanique Davison RN - 05/01/2024 1:29 PM EDT EGD completed. Sedated by PORCELAIN BUILDUP ASSISTANT. See anesthesia record for VS and medications given. Pt tolerated procedure well with minimal gagging. Abd soft. Airway patent. Pt to recovery on L side with HOB elevated. Report to recovery room nurse. Specimen collected and sent. Bedside cleaning done. * Eduardo Echevarria RN - 05/01/2024 1:04 PM EDT Patient or the Patients Legally Authorized Bake Room Worker has been advised that (1) the Patient meets criteria for testing and (2) the administration of anesthesia, radiation or other imaging agents may have a harmful impact to an unborn child. The Patient or Patients Representativewere offered the opportunity to ask questions as to necessity of such testing and potential outcomes. Consent for testing has been declined. documented in this encounter Plan of Treatment Upcoming Encounters Date Type Department Care Team (Late st Contact Info) Description 05/05/2024 12:40 PM EDT Telemedicine Nutrition & Weight Management, [facility] [address] [place] [address] Josie Dennison PA-C [address] [place] [address] 05/05/2024 1:30 PM EDT Telemedicine Nutrition & Weight Management, [facility] [address] [facility] [place] [address] [facility], Surgery Class Provider [facility] [place] [address] 05/07/2024 12:40 PM EDT Office Visit Podiatry [facility] [address] [facility] [place] [address] Rowena Mckee DPM 132 [facility] [place] [address] 06/04/2024 11:30 AM EDT Telemedicine Nutrition and Weight Management, [place] [address] [place] [address] Rachael Cortez RDN [address] [facility] [address] 06/25/2024 9:10 AM EDT Office Visit [address] [phone] Cinthya Hatfield, DO [address] [facility] [place] [address] 07/03/2024 8:00 AM EDT Telemedicine Nutrition and Weight Management [address] [facility] [place] [address] Dina Santamaria CRNP [address] [place] [address] 07/07/2024 8:00 AM EDT Office Visit Dermatology [facility] 200 [facility] [place] [address] Armando Balderas MD [address] [place] [address] Pending Results Name Type Priority Associated Diagnoses Date /Time SURGICAL PATHOLOGY Pathology Routine 2023 1:30 PM EDT Scheduled Orders Name Type Priority Associated Diagnoses Orde r Schedule SURGICAL PATHOLOGY Pathology Routine One Ti me for 1 Occurrences starting 05/01/2024 until 05/01/2024, 1 completed Health Maintenance Due Date Last Done Comments [...] Procedure Name Priority Date/Time Associated Diagnosis Comments UPPER GI ENDOSCOPY 05/01/2024 1: 22 PM EDT documented in this encounter Results * UPPER GI ENDOSCOPY (05/01/2024 1:22 PM EDT) 05/01/2024 1:22 PM EDT Narrative Procedure Note Cinthya Hatfield DO - 05/01/2024 1:22 PM EDT [facility] Patient Name: Dina Acosta Procedure Date: 05/01/2024 1:22 PM Date of : 1990 Admit Type: Outpatient Note Status:Finalized Date of : 1990 Admit Type: Outpatient Age: 33 Room: OR 5 Gender: Female Note Status: Finalized Procedure: Upper GI endoscopy Indications: Preoperative assessment for bariatric surgery totreat morbid obesity Providers: Macy Solomon MD (Doctor) Referring MD: Cinthya Hall DO Medicines: See the Anesthesia note for documentation of theadministered medications Complications: No immediate complications. Procedure: Pre-Anesthesia Assessment: - ASA Grade Assessment: III - A patient with severesystemic disease. - See [facility] electronic record for H&P. After obtaining informed consent, the endoscope waspassed under direct vision. All instruments were visually inspected immediatelybefore and after removal from the patient to ensure they are fully intact. Throughoutthe procedure, the patient's blood pressure, pulse, and oxygen saturations weremonitored continuously. The GIF-Q190 Endoscope ([id number]) was introduced throughthe mouth, and advanced to the second part of duodenum. The upper GI endoscopy wasaccomplished without difficulty. The patient tolerated the procedure well. Findings & Specimens: The Z-line was found 40 cm from the incisors. The Z line was mildlyirregular; there was a single tongue of columnar mucosa extending 0.5 - 1.0 cm above the GEjunction. This was biopsied. Hill 1. There were stripes of erythema and linear erosions in the pre-pyloricantrum. The remainder of the stomach was normal. Random biopsies taken throughout the stomach. The duodenum was normal. The papilla was normal. Recommendation: Discharge pt home. Follow up with referring. Macy Solomon MD 05/01/2024 1:53:28 PM This report has been signed electronically. Cinthya Hatfield DO GASTRO UPPER documented in this encounter Administered Medications Inactive Administered Medications - up to 3 most recent administrations Medication Order MAR Action Action Date Dose Rate Site isolyte-S pH 7.4 infusion Intravenous, at 25 mL/hr, All Patients EXCEPT Dialysis patients Plasma-LYTE 148, isolyte-S, and isolyte-S pH 7.4 are considered equivalent - including for MAR barcode scanning., CONTINUOUS, Starting on Sat05/01/24 at 1330, Until Sat05/01/24 at 191, Pre-Op Restarted 05/01/2024 1:09 PM EDT New Bag 05/01/2024 1:03 PM EDT 25 mL/hr 25 mL/hr documented in this encounter Active and Recently Administered Medications Times are shown in EDT. Continuous Medication Order 04/29/2024 04/30/2024 05/01/2024 isolyte-S pH 7.4 infusion Intravenous, at 25 mL/hr, All Patients EXCEPT Dialysis patients Plasma-LYTE 148, isolyte-S, and isolyte-S pH 7.4 are considered equivalent - including for MAR barcode scanning., CONTINUOUS, Starting on Sat05/01/24 at 1330, Until Sat05/01/24 at 191, Pre-Op 1303 (New Bag - Prov ider: Eduardo Echevarria RN)1308 (Paused - Provider: Brandan Carrasco CRNA - Comment: Switch to gravity)1309 (Restarted - Provider: Brandan Carrasco CRNA)1331 (Stopped - Provider: Mingo Ramos CRNA) documented in this encounter Care Teams Syruper Relationship Specialty Start Date End Date Cinthya Hatfield DO [address] [place] [address] PCP - General Family Medicine 01/29/24 documented as of this encounter
--- OUTSIDE RECORDS SUMMARY | 2024-09-17 06:16 | External Medical Summary | Summary of Care ---
Author Name Unknown Organization [facility] Address [address] [place] [address] Phone [phone] Care Team Providers Care Taxation Consultant Name Role Phone Cinthya Hatfield DO Primary Care Provider Reason for Referral * Ancillary Services (Within 10 days (routine)) - Authorized Specialty Diagnoses / Procedures Referred By Ashleigh bob Referred To Contact Gastroenterology Diagnoses Morbid obesity due to excess calories (HCC) Kandis Marti PA-C [address] [place] [address] Referral ID Status Reason Start Date Expiration Date Visits Requested Visits Authorized [id number] Authorized Ancillary Services Required 04/02/2024 [id number] Question Answer Referral Priority Within 10 days (routine) Where should this appointment be scheduled? [facility] Comments Upper Endoscopy ASGE Guidelines other Pre bariatric surgery PLEASE GET H. PYLORI ADDITIONAL INFORMATION 1. Is the patient on Coumadin? No 2. Is the patient on Pradaxa? No Is the patient on GLP-1? Yes * Evaluate & Treat - Unlimited Visits (Within 10 days (routine)) - Authorized Specialty Diagnoses / Procedures Referred By Ashleigh bob Referred To Contact Psychology Diagnoses Morbid obesity due to excess calories (HCC) Kandis Marti PA-C [address] [place] [address] Referral ID Status Reason Start Date Expiration Date Visits Requested Visits Authorized [id number] Authorized Specialty Services Required 04/02/2024 [id number] Question Answer Referral Priority Within 10 days (routine) Where should this appointment be scheduled? [facility] Is this referral for medication management? No Reason for Referral: Weight/Eating/Bariatric Surgery Specific Condition? Pre-Surgical Bariatric Surgery Eval (Including Early Eval) Comments Bariatric surgery evaluation Reason for Visit * Reason Comments Weight Management Patient is here for Bariatric surgery evaluation Neck 16.75 inches Waist 57.25 inches Encounter Details Date Type Department Care Team (Late st Contact Info) Description 04/02/2024 8:00 AM EDT Office Visit Nutrition & Weight Management, [facility] [address] [place] [address] Lisa Zavaleta Eval Prov [facility] [address] [place] [address] Kandis Marti PA-C [address] [place] [address] Anjana Saunders RDN [address] [place] [address] Morbid obesity due to excess calories (HCC)* Allergies Active Allergy Reactions Criticality Noted Date Comments Amoxicillin 11/23/2005 Diphenhydramine Other (Please comment) High 11/29/19 18 Cephalexin High 04/23/2019 Itchy, hives, throat closing, chest tightness. documented as of this encounter (statuses as of 04/02/2024) Medications Medication Sig Dispensed Refills Start Date End Date Status Excedrin Migraine 250-250-65 MG Oral Tablet (Aspirin-Acetaminop hen-Caffeine) Take 1 Tablet by mouth 3 times a day as needed for Migraine. 12/31/2020 Active hydrOXYzine HCl 10 MG Oral Tablet (Atarax)Indications :Pruritus Take by mouth 1 Tablet every 6 hours as needed for Itching. 40 Tablet 2 12/20/2021 Active Additional Information Patient not taking.Reported on 04/02/2024 Proventil HFA 108 (90 Base) MCG/ACT Inhalation Aerosol SolutionIndications :Upper respiratory tract infection, unspecified type,Bronchitis Inhale 2 Puffs by mouth every 4 hours as needed for Congestion, Cough or Wheezing. 18 g 09/22/2022 Active Additional Information Patient not taking.Reported on 04/02/2024 Escitalopram Oxalate 10 MG Oral Tablet (Lexapro)Indication s:Adjustment disorder with anxious mood Take 1 Tablet by mouth in the morning. 30 Tablet 5 08/16/2023 Active Topiramate 25 MG Oral Tablet (Topamax) Take 1 Tablet by mouth in the morning and 1 Tablet before bedtime. 60 Tablet 2 08/16/2023 Active Montelukast Sodium 10 MG Oral Tablet (Singulair) Take 1 Tablet by mouth in the morning. 90 Tablet 3 09/26/2023 Active Sprintec 28 0.25-35 MG-MCG Oral Tablet (Norgestimate-Eth Estradiol)Indicatio ns:PCOS (polycystic ovarian syndrome) TAKE 1 TABLET BY MOUTH IN THE MORNING 84 Tablet 3 11/18/2023 Active Semaglutide(0.25 or 0.5MG/DOS) 2 MG/3ML Solution Pen-injector (Ozempic) Inject 0.5 mg under the skin once a week. 9 mL 2 02/18/2024 Active Fluorometholone 0.1 % Ophthalmic Suspension (FML) INSTILL 1 DROP INTO AFFECTED EYE(S) 4 TIMES DAILY FOR 2 WEEKS 03/24/2024 Active documented as of this encounter (statuses as of 04/02/2024) Active Problems Problem Noted Date Diagnosed Date [...] as of this encounter (statuses as of 04/02/2024) Resolved Problems Problem Noted Date Diagnosed Date [...] as of this encounter (statuses as of 04/02/2024) Immunizations Name Administration Dates Next Due COVID-19 mRNA, LNP-s, No Pre serve, 2-Dose Series ([place]) 08/29/2021,10/03/2020,09/12/2020 Hepatitis B, 20+ yrs 04/27/2022,12/15/2021,11/10 MMR [...] Answer Date Recorded PHQ Adult Total Score 0 04/11/2022 Hunger Vital Sign Answer Date Recorded Worried About Running Out of Food in the Last Ye ar Never true 09/17/2019 Ran Out of Food in the Last Year Never true 09/17/2019 Utilities Answer Date Recorded Do you have trouble paying y our heating, water, or electric bill? (Adult - for ages 18 years and over) Not on file 03/03/2024 Is your family able to pay t he heat, water, or electric bill? (Household - for ages 0-17 years) Not on file 03/03/2024 Does your family have access to good internet? (Household - for ages 0-17 years) Not on file 03/03/2024 Social Connections Answer Date Recorded How often do you feel lonely or isolated from those around you? (Adult - for ages 18 years and over) Not on file 03/03/2024 Sex and Gender Information Value Date Recorded Sex Assigned at Female 06/19/2019 1:31 PM EDT Gender Identity Female 06/19/2019 1:31 PM EDT Sexual Orientation Straight 04/22/2019 1: 43 PM EDT Job Start Date Occupation Industry Not on file Not on file Not on file documented as of this encounter Last Filed Vital Signs Vital Sign Reading Time Taken Comments Blood Pressure 120/78 04/02/2024 8:14 AM EDT Pulse 76 04/02/2024 8:14 AM EDT Temperature 36.5 C (97.7 F) 04/02/2024 8:14 AM ED T Respiratory Rate - - Oxygen Saturation 98% 04/02/2024 8:14 AM EDT Inhaled Oxygen Concentration - - Weight 176.8 kg (389 lb 12.8 oz) 04/02/2024 8:14 AM EDT Height 178 cm (5' 10.08") 04/02/2024 8:14 AM EDT Body Mass Index 55.8 04/02/2024 8:14 AM EDT documented in this encounter Patient Instructions * Patient Instructions* Anjana Saunders RDN - 04/02/2024 9:50 AM EDT Needs to work on: Chewing well No eating and drinking at the same time No drinking 30 min before and after meals Sipping documented in this encounter Progress Notes * Kandis Marti PA-C - 04/02/2024 8:11 AM EDT Bariatric Medical Evaluation Nursing Notes: Niharika Chamberlain RN 04/02/24 0818 Signed Chief Complaint Patient presents with Weight Management Patient is here for Bariatric surgery evaluation Neck 16.75 inches Waist 57.25 inches Dina Acosta is a pleasant 33 year old year old female seen in the [facility] Management Clinic for aninitial evaluation for bariatric surgery. Patient is interested in Sleeve Gastrectomy HPI Patient is receiving ongoing education regarding dietary and physical modifications for weight loss. - Initial clinic visit 10/17/2023 Weight 410 lbs Height 69" Body mass index is 60.34 kg/m. -program goal weight: 369 - Today's weight: 389 lbs - Total weight loss of -21 lbs since initial weight in clinic - The patient's weight has -10 lbs since the last visit on 02/18/24 399 Wt Readings from Last 6 Encounters: 04/02/24 (!) 176.8 kg (389 lb 12.8 oz) 01/29/24 (!) 184.4 kg (406 lb 8 oz) 01/01/24 (!) 189.5 kg (417 lb 11.2 oz) 12/25/23 (!) 190.8 kg (420 lb 9.6 oz) 09/26/23 (!) 189.1 kg (417 lb) 08/16/23 (!) 188.6 kg (415 lb 12.8 oz) Insurance:The patient has active P Family coverage. Bariatric Surgery is covered based on medicalnecessity. Current BMI 60.34 does meet criteria per medical policy. 04/02/2024 BME On ozempic 0.5mg weekly-- losing about 1.6 pounds per week 02/18/2024 -behavior class -no big questions -- working on eating slower, eating and drinking -at work doesn't get a water break but will ask if she can step off the floor more often to keep upwater intake without chugging water -weight today 399 -ozempic 0.5mg weekly 01/29/24 -Nutrition class Visit 10/17/23 The patient suffers from Morbid obesity Patient is interested in the following treatment options for obesity: possible medication use. Previous Weight Management Interventions: The patient has tried weight loss in the past without significant group home success. Previous interventions: Self-directed. Tried meal prep The patient confirms any past pharmacotherapy for weight loss topamax . Past Medical History Glaucoma No Hypertension: No CAD: No (had palpitations in the past) Seizures: Yes Patient denies personal or family history of medullary thyroid carcinoma. Patient denies personal or family history of multiple endocrine neoplasia syndrome type II Patient denies personal history of pancreatitis Diabetes: No Hemoglobin A1C last 3 results: Lab Results Component Value Date/Time HEMOGLOBIN A1C - [facility] 5.4 09/26/2023 11:52 AM HEMOGLOBIN A1C - [facility] 5.4 01/11/2023 09:45 AM HEMOGLOBIN A1C - [facility] 5.3 11/13/2021 05:04 PM HEMOGLOBIN A1C - [facility] 5.3 03/17/2019 01:14 PM HEMOGLOBIN A1C - [facility] 5.0 12/16/2015 08:29 AM Insulin Resistance: Yes PCOS: Yes History of nephrolithiasis: No. Anxiety/Depression: Yes Any chance of -- denies Patient Active Problem List Diagnosis Class 3 severe obesity due to excess calories without serious comorbidity with body mass index (BMI) of 60.0 to 69.9 in adult (HCC) PCOS (polycystic ovarian syndrome) Super obese Migraine with aura and without status migrainosus, not intractable ROSANNE (generalized anxiety disorder) Hyperinsulinemia Left-sided low back pain with left-sided sciatica Current Outpatient Medications Medication Sig Dispense Refill Excedrin Migraine 250-250-65 MG Oral Tablet (Adhjmcu-Yeyesxrvbwfaf-Yjbylvvt) Take 1 Tablet by mouth3 times a day as needed for Migraine. hydrOXYzine HCl 10 MG Oral Tablet (Atarax) Take by mouth 1 Tablet every 6 hours as needed for Itching. 40 Tablet 2 Proventil HFA 108 (90 Base) MCG/ACT Inhalation Aerosol Solution Inhale 2 Puffs by mouth every 4 hours as needed for Congestion, Cough or Wheezing. 18 g 0 Escitalopram Oxalate 10 MG Oral Tablet (Lexapro) Take 1 Tablet by mouth in the morning. 30 Tablet 5 Topiramate 25 MG Oral Tablet (Topamax) Take 1 Tablet by mouth in the morning and 1 Tablet before bedtime. 60 Tablet 2 Montelukast Sodium 10 MG Oral Tablet (Singulair) Take 1 Tablet by mouth in the morning. 90 Tablet 3 Sprintec 28 0.25-35 MG-MCG Oral Tablet (Norgestimate-Eth Estradiol) TAKE 1 TABLET BY MOUTH IN THE MORNING 84 Tablet 3 Semaglutide(0.25 or 0.5MG/DOS) 2 MG/3ML Solution Pen-injector (Ozempic) Inject 0.5 mg under the skin once a week. 9 mL 2 No current facility-administered medications for this visit. Past Surgical History: Procedure Laterality Date EGD, FLEXIBLE, DIAGNOSTIC 10/14/2018 focal intestinal metaplasia, mild gastric irritation, repeat 1 yr/[facility] EGD, FLEXIBLE, DIAGNOSTIC 11/26/2019 mild gastric irritation, repeat 5 yrs / [facility] REMOVE FOOT TENDON LESION Left 07/28/2021 EXCISION LESION TENDON FOOT performed by Rowena Mckee DPM at OR [facility] REMOVE FOOT TENDON LESION Left 11/30/2022 EXCISION LESION TENDON FOOT performed by Rowena Mckee DPM at OR [facility] REMOVE TONSILS & ADENOIDS, AGE 12+ Bilateral 06/21/2015 TONSILLECTOMY AND ADENOIDECTOMY AGE 12 OR OVER performed by Remberto Pennington DO at OR [facility] Review of patient's allergies indicates: Allergen Reactions Diphenhydramine Other (Please comment) Keflex [Cephalexin] Itchy, hives, throat closing, chest tightness. Amoxicillin Psychosocial Lives at home with grandma. They are supportive of the patient in the surgery process. Adjustment: Issues with Yes, having issues with stress management has anxiety-- but well controlled Depression: Stable Taking medication Other Confirmed Mental Health Diagnosis: anxiety/panic disorder Alcohol Use: Rare use (<2 drinks per month) Tobacco Use: Never Substance Use: None REVIEW OF SYSTEMS: Review of Systems Gastrointestinal: Positive for nausea. Negative for diarrhea and vomiting. Sleep Apnea STOP-BANG: Does patient snore loudly (louder than talking or loud enough to be heard)?No Does patient feel tired, fatigued or sleepy during daytime? no Have others observed patient stopping breathing during sleep? No Does patient have/is being treated for high blood pressure? no BMI greater than 35 kg/m2? yes; Body mass index is 55.8 kg/m. Patient 50 years or older? no; 33 year old Neck circumference greater than 16 inches? Yes Gender: female Score: less than 3 no referral indicated Menstrual Cycle: Regular Control: OCPs PHYSICAL EXAMINATION: BP 120/78 | Pulse 76 | Temp 36.5 C (97.7 F) | Ht 1.78 m (5' 10.08") | Wt (!) 176.8 kg (389 lb 12.8 oz) | SpO2 98% | BMI 55.80 kg/m | BSA 2.96 m Physical Exam Vitals and nursing note reviewed. Constitutional: Appearance: Normal appearance. HENT: Head: Normocephalic and atraumatic. Cardiovascular: Normal rate. Pulmonary: Effort: Pulmonary effort is normal. No respiratory distress. Neurological: Mental Status: Alert and oriented to person, place, and time. Psychiatric: Mood and Affect: Mood normal. Anti obesity Medication Indications: BMI >30 or BMI >27 with obesity related comorbidity & no apparent contraindications Goal is to lose ~5% wt loss in 3 mo Wegovy/Saxenda/Zepbound:consider Ozempic, Victoza, Trulicity, Mounjaro: started ozempic 01/01/24 417 pounds Wellbutrin: avoid with seizure history Naltrexone: consider Topamax: on now Phentermine: could consider Xenical: Metformin: was on metformin -- gi side effects Dina was seen today for weight management. Diagnoses and all orders for this visit: Morbid obesity due to excess calories (HCC) Continue surgery program Continue ozempic 0.5mg weekly -may increase to 1mg after RD sees her today-- if getting adequate nutrition Abnormal weight gain PCOS (polycystic ovarian syndrome) Patients with PCOS/hyperinsulinemia tend to respond well to a low-carb diet. Limit processed carbs/sugary foods & drinks; focus on meals consisting primarily of protein, vegetables, fruit, healthy fats, & whole grains ROSANNE (generalized anxiety disorder) Reports stable- some days worse than others Hyperinsulinemia Dina Acosta is encouraged to achieve a modest weight loss via diet, exercise, behavior modification, and pharmacotherapy to facilitate metabolic and physiological parameters. The bariatric surgery procedure and preparation process was reviewed in detail as outlined in the patient education booklet. The importance of permanent lifestyle changes and diet modifications aftersurgery was discussed. The pre- surgical screening process was reviewed in detail with the patient. She understands the need for nutritional, psychological, medical and surgical evaluations prior to surgery. A registered dietitian evaluated the patient today and was instructed in the Stage 2 diet which shewill begin 2 weeks before surgery and continue during the postoperative period. To promote the encouraged weight loss prior to surgery, we discussed the use of a high protein dietfor 2 weeks. This will also help familiarize her with the Stage 2 diet. The patient has attended educational class 1 and class 2 and is scheduled for class 3. She has attended 1 support group meetings. Overall, Ms. Acosta fits the criteria for bariatric surgery and should continue in the pre-screening process. Bariatric Checklist initiated today. Pending successful completion of all the required steps in the evaluation process patient will be moved on to the surgeon. The patient would like to have Sleeve Gastrectomy he/she would prefer no preference The patient will return to the Weight Management Clinic in 1 months for surgery class. She was instructed to call the clinic in the meantime with any questions or concerns. I spent a total of 52 minutes on the date of service in preparation, delivery, and documentation ofthe care provided to Dina Acosta excluding any time spent in the performance of separately billedservices.This included but was no limited to providing counseling about the benefits of weight loss, about their nutritional status, detailed explanations about calorie count, types of nutrients to choose, and composition of the meals. Motivational interview provided in order to prepare the patientto achieve future goals. Kandis Marti PA-C, [facility] Nutrition [facility] * Anjana Saunders RDN - 04/02/2024 8:00 AM EDT Bariatric Surgery Evaluation Nutrition Assessment [facility] Name: Dina Acosta Location: NUTRITION & WEIGHT MANAGEMENT, [facility] Date: 04/02/2024 Time: 7:51 AM Patient was seen [id number] in the clinic. Patient identified by name and . NUTRITION ASSESSMENT: Client History: 33 year old female PMH: Past Medical History: Diagnosis Date Anxiety [...] or 0.5MG/DOS) 2 MG/3ML Solution Pen-injector (Ozempic) Sprintec 28 0.25-35 MG-MCG Oral Tablet (Norgestimate-Eth Estradiol) Montelukast Sodium 10 MG Oral Tablet (Singulair) Escitalopram Oxalate 10 MG Oral Tablet (Lexapro) Topiramate 25 MG Oral Tablet (Topamax) Proventil HFA 108 (90 Base) MCG/ACT Inhalation Aerosol Solution hydrOXYzine HCl 10 MG Oral Tablet (Atarax) Excedrin Migraine 250-250-65 MG Oral Tablet (Oublkpu-Wduwlkfnkzmwp-Hovfiscw) Supplements: Can drink a herbal supplement "Skinny Fit" on occasion 04/02/24 -BME, Yellow from RD -Was in [...] recall Breakfast: cereal or oatmeal with PB Snacks: Lunch: salad (premade salad from [employer] will have half for lunch) with protein shake Premier Snacks: on occasion nuts fruit Dinner: Eggs potatoes with gravy (will have a smaller portion), sausage or salad with chix Snacks: Yogurt Drinks: water/crystal light 32 oz, 12 oz x 3, will drink 2 premier shakes a day Caffeine: No Alcohol: Infrequent, rare Restaurant meals: at least once a month Protein: 80 oz Water: 64 oz Diet recall indicates: Inadequate fiber intake Inadequate fruit and vegetable intake Low fat and/or low sugar selections Uses calorie free beverages Good meal distribution Low caffeine intake Adequate fluid intake Adequate protein intake Progress on Eating Behaviors Has been practicing: Decreasing portions and stopping when comfortable, not full. Eating at regular meal times, not grazing or skipping meals. Not drinking/eating high sugar/fat items. Needs to work on: Chewing well following 50% of the time No eating and drinking at the same time more challenge at work, is not allowed to have a drink on the floor at work, at home does follow this behavior. No drinking 30 min before and after meals Sipping (work is a challenge, will sip at home) Activity Level: ADLs will go for a walk on occasion on weekends OBJECTIVE: Patient seen by RD for bariatric surgery evaluation; RD reviewed diet progression s/p bariatric surgery and two-week preoperative high protein liquid diet trial. Reviewed use of high protein, low sugar supplement with patient. Patient was made aware of these elliott points: 1. Diet adherence is critical for successful long-term weight loss management. 2. To avoid postop complications, diet adherence is critical. 3. Vitamin and minerals will be needed for life; compliance to vitamin and mineral supplementation recommendations is important in preventing nutritional deficiencies. 4. Eating behaviors will need to be modified for long-term success. These include: slowing the rateof eating and drinking, converting to kcal free beverages only, chewing food well, and taking fluids within the time guidelines prescribed. Anthropometrics Measurements: Initial clinic visit 10/17/2023 Weight 410 lbs Height 69" Body mass index is 60.34 kg/m. Today's Weight: 389 lbs Weight changes: -21 lbs since initial visit Wt Readings from Last 10 Encounters: 01/29/24 (!) 184.4 kg (406 lb 8 oz) 01/01/24 (!) 189.5 kg (417 lb 11.2 oz) 12/25/23 (!) 190.8 kg (420 lb 9.6 oz) 09/26/23 (!) 189.1 kg (417 lb) 08/16/23 (!) 188.6 kg (415 lb 12.8 oz) 11/30/22 (!) 182.3 kg (402 lb) 11/23/22 (!) 182.8 kg (403 lb) 09/25/22 (!) 182.3 kg (402 lb) 04/11/22 (!) 186 kg (410 lb) 01/29/22 (!) 187.2 kg (412 lb 12.8 oz) Nutrition Prescription: RMR = 2232 --> x 1.25 activity factor = 2790 Kcals/day for weight maintenance -Calorie goal for weight loss = 2290 Kcals/day NUTRITION DIAGNOSIS: Overweight/obesity related to excessive energy intake and physical inactivity as evidenced by BMI of 55.8 kg/m, Class III Obesity. Patient passed written exam. Patient comprehension: Can identify foods and behaviors to modify. READINESS: YELLOW. It is my professional opinion that there are dietary contraindications to proceeding with the bariatric surgery process. There are additional recommendations noted in 'eating behaviors to modify/continue' at the end of the report that should be implemented to enhance this patient's success. Expected outcomes: Demonstrated interest in learning. Expect compliance with diet recommendations. NUTRITION INTERVENTION: Diet orders: Continue dietary modifications as is. Exercise: Continue to work in activity as tolerated Dietary Modifications: Eating Behaviors to Modify/Continue: Needs to work on: Chewing well No eating and drinking at the same time No drinking 30 min before and after meals Sipping NUTRITION MONITORING AND EVALUATION: Plan for Return in 1 month for surgery class. Return Appointment with RD: 2 months Minutes of MNT: 55 Patient advised to use [employer] portal to send any follow up questions. Anjana Saunders RDN documented in this encounter Nursing Notes * Stiver, Niharika, RN - 04/02/2024 8:17 AM EDT Chief Complaint Patient presents with Weight Management Patient is here for Bariatric surgery evaluation Neck 16.75 inches Waist 57.25 inches documented in this encounter Plan of Treatment Upcoming Encounters Date Type Department Care Team (Latest Contact Info) Description 4 10:40 AM EDT Laboratory Laboratory, [facility] [address] [facility] [place] [id number] [facility] [address] [facility] [place] [address] 4 10:00 AM EDT Telemedicine Psychology [facility] [address] [place] [id number] Debbie Pelletier, PhD [address] [place] [address] 4 9:45 AM EDT Imaging Radiology [facility] [address] [facility] [place] [address] 4 8:00 AM EDT Office Visit [facility] [address] [place] [phone] Marlyn Álvarez PA-C [address] [place] [address] 4 12:40 PM EDT Telemedicine Nutrition & Weight Management, [facility] [address] [facility] [place] [address] Josie Dennison PA-C [address] [facility] [place] [address] 4 1:30 PM EDT Telemedicine Nutrition [facility] [address] [place] [address] [facility], Surgery Class Provider Wy[place] [address] [place] [address] 4 9:10 AM EDT Office Visit [facility] [address] [facility] [place] [phone] Cinthya Hatfield DO [address] [facility] [place] [address] 4 8:00 AM EDT Office Visit Dermatology [facility] [address] [facility] [place] [address] Armando Balderas MD [address] [facility] [place] [address] 4 1:08 PM EST Hospital Encounter OR [facility], Operating Room, [facility] - 4th Floor [address] [facility] [place] [address] Macy Solomon MD [address] [place] [address] 4 1:08 PM EST - 4 1:47 PM EST Surgery OR [facility], Operating Room, [facility] - 4th Floor [address] [place] [address] Macy Solomon MD [address] [place] [address] ESOPHAGOGASTRODUODENOSCOPY (EGD), FLEXIBLE, TRANSORAL, DIAGNOSTIC Scheduled Orders Name Type Priority Associated Diagnoses Orde r Schedule VITAMIN A (RETINOL) Lab Routine Morbid obesity due to excess calories (HCC) Expected: 04/02/2024 (Approximate), Expires: 07/03/2024 ZINC Lab Routine Morbid obesity due to excess calories (HCC) Expected: 04/02/2024 (Approximate), Expires: 07/03/2024 FOLIC ACID Lab Routine Morbid obesity due to excess calories (HCC) Expected: 04/02/2024 (Approximate), Expires: 07/03/2024 PTH Lab Routine Morbid obesity due to excess calories (HCC) Expected: 04/02/2024 (Approximate), Expires: 07/03/2024 COPPER, SERUM OR PLASMA Lab Routine Morbid obesity due to excess calories (HCC) Expected: 04/02/2024 (Approximate), Expires: 07/03/2024 IRON SCREEN, INCLUDING TIBC Lab Routine Morbid obesity due to excess calories (HCC) Expected: 04/02/2024 (Approximate), Expires: 07/03/2024 FERRITIN Lab Routine Morbid obesity due to excess calories (HCC) Expected: 04/02/2024 (Approximate), Expires: 07/03/2024 VITAMIN B1 (THIAMINE), BLOOD, LC/MS/MS Lab Routine Morbid obesity due to excess calories (HCC) Expected: 04/02/2024 (Approximate), Expires: 07/03/2024 VITAMIN B12 Lab Routine Morbid obesity due to excess calories (HCC) Expected: 04/02/2024 (Approximate), Expires: 07/03/2024 INSULIN Lab Routine Morbid obesity due to excess calories (HCC) Expected: 04/02/2024 (Approximate), Expires: 07/03/2024 COMPREHENSIVE METABOLIC PANEL Lab Routine Morbid obesity due to excess calories (HCC) Expected: 04/02/2024 (Approximate), Expires: 07/03/2024 CBC Lab Routine Morbid obesity due to excess calories (HCC) Expected: 04/02/2024 (Approximate), Expires: 07/03/2024 HEMOGLOBIN A1C Lab Routine Morbid obesity due to excess calories (HCC) Expected: 04/02/2024 (Approximate), Expires: 07/03/2024 LIPID PANEL WITH DIRECT LDL IF TG IS HIGH Lab Routine Morbid obesity due to excess calories (HCC) Expected: 04/02/2024 (Approximate), Expires: 07/03/2024 25-HYDROXY VITAMIN D Lab Routine Morbid obesity due to excess calories (HCC) Expected: 04/02/2024 (Approximate), Expires: 07/03/2024 US ABDOMEN LIMITED Medical Imaging Routine Morbid obesity due to excess calories (HCC) Expected: 04/09/2024 (Approximate), Expires: 05/03/2025 Scheduled Procedures Name Priority Associated Diagnoses Date/Ti me ESOPHAGOGASTRODUODENOSCOPY ( EGD), FLEXIBLE, TRANSORAL, DIAGNOSTIC Morbid obesity due to excess calories (HCC) 07/20/2024 1:08 PM EST Scheduled Referrals Name Type Priority Associated Diagnoses Orde r Schedule ADULT/PEDS PSYCHOLOGY REFERRAL OP Referral Within 10 days (routine) Morbid obesity due to excess calories (HCC) Ordered: 04/02/2024 UPPER ENDOSCOPY GI REFERRAL OP Referral Within 10 days (routine) Morbid obesity due to excess calories (HCC) Ordered: 04/02/2024 Health Maintenance Due Date Last Done Comments Depression Screening 04/11/2023 04/11/2022 PAP SMEAR-EVERY 2 YRS,AGES 18-100 04/12/2023 04/12/2021, 05/16/2018, 02/07/2017, Additional history exists COVID-19 Vaccine ( season) 2023 08/29/2021, 10/03/2020, 09/12/2020 Influenza Vaccine (FLU shot) (#1) 2024 07/19/2022, 07/19/2022, 06/21/2021, Additional history exists DTaP,Tdap,and Td Vaccines (2 - Td or Tdap) 05/28/2024 05/28/2014 Hepatitis B Vaccine Completed 04/27/2022, 12/15/2021, 11/10/2021 [...] as of this encounter Visit Diagnoses Diagnosis Morbid obesity due to excess calories (HCC)- Primary Morbid obesity due to excess calories (HCC) documented in this encounter Care Teams Taxation Consultant Relationship Specialty Start Date End Date Cinthya Hatfield DO [address] [place] [address] PCP - General Family Medicine 01/29/24 documented as of this encounter
--- OUTSIDE RECORDS SUMMARY | 2024-09-17 06:16 | External Medical Summary | Summary of Care ---
Author Name Unknown Organization [facility] Address [address] [place] [address] Phone [phone] Care Team Providers Care Unhairer Name Role Phone Rosamary annCinthya DO Primary Care Provider [phone] Reason for Visit * Reason Comments PAP Patient is here toda y for a PAP. Patient states no concerns. Encounter Details Date Type Department Care Team (Latest Contact Info) Description 04/23/2024 8:00 AM EDT Office Visit [facility] [address] [place] [address] Marlyn Álvarez PA-C [address] [place] [address] Encounter for surveillance of contraceptive pills*; Encounter for gynecological examination without abnormal finding; Screening for malignant neoplasm of cervix; PCOS (polycystic ovarian syndrome) Allergies Active Allergy Reactions Criticality Noted Date Comments Amoxicillin 11/23/2005 Diphenhydramine Other (Please comment) High 11/29/19 18 Cephalexin High 04/23/2019 Itchy, hives, throat closing, chest tightness. documented as of this encounter (statuses as of 05/04/2024) Medications Medication Sig Dispensed Refills Start Date [...] the evening. 90 Tablet 2 04/23/2024 Active hydrOXYzine HCl 10 MG Oral Tablet (Atarax)Indication s:Pruritus Take by mouth 1 Tablet every 6 hours as needed for Itching. 40 Tablet 2 12/20/2021 04/23/2024 Discontinued (Medication List Clean Up) Proventil HFA 108 (90 Base) MCG/ACT Inhalation Aerosol SolutionIndication s:Upper respiratory tract infection, unspecified type,Bronchitis Inhale 2 Puffs by mouth every 4 hours as needed for Congestion, Cough or Wheezing. 18 g 09/22/2022 04/23/2024 Discontinued (Medication List Clean Up) Topiramate 25 MG Oral Tablet (Topamax) Take 1 Tablet by mouth in the morning and 1 Tablet before bedtime. 60 Tablet 2 08/16/2023 04/23/2024 Discontinued (Refill) Sprintec 28 0.25-35 MG-MCG Oral Tablet (Norgestimate-Eth Estradiol)Indicati ons:PCOS (polycystic ovarian syndrome) TAKE 1 TABLET BY MOUTH IN THE MORNING 84 Tablet 3 11/18/2023 04/23/2024 Discontinued (Refill) documented as of this encounter (statuses as of 05/04/2024) Active Problems Problem Noted Date Diagnosed Date [...] as of this encounter (statuses as of 05/04/2024) Resolved Problems Problem Noted Date Diagnosed Date [...] as of this encounter (statuses as of 05/04/2024) Immunizations Name Administration Dates Next Due COVID-19 mRNA, LNP-s, No Pre serve, 2-Dose Series ([employer]) 08/29/2021,10/03/2020,09/12/2020 Hepatitis B, 20+ yrs 04/27/2022,12/15/2021,11/10 MMR [...] Sign Reading Time Taken Comments Blood Pressure 116/86 04/23/2024 7:56 AM EDT Pulse 78 04/23/2024 7:56 AM EDT Temperature 35.8 C (96.5 F) 04/23/2024 7:56 AM ED T Respiratory Rate 16 04/23/2024 7:56 AM EDT Oxygen Saturation 98% 04/23/2024 7:56 AM EDT Inhaled Oxygen Concentration - - Weight 178.6 kg (393 lb 12.8 oz) 04/23/2024 7:56 AM EDT Height 177.8 cm (5' 10") 04/23/2024 7:56 AM EDT Body Mass Index 56.5 04/23/2024 7:56 AM EDT documented in this encounter Progress Notes * Marlyn Álvarez PA-C - 04/23/2024 8:08 AM EDT Images from the original note were not included. History of Present Illness Dina Acosta is a 33 year old female that presents for PAP (Patient is here today for a PAP. /Patient states no concerns. ) Here for cpe and pap On ocp Likes this pill Wants to continue it Pap due Doing classes for gastric bypass She is on ozempic but received notification that she will not have the mext next year due to formulary changes Component Latest Ref Rng 03/03/2024 04/02/2024 BUN 6 - 20 mg/dL 11 Creatinine 0.5 - 1.0 mg/dL 0.8 Estimated Glomerular Filtration Rate >=60 mL/min >90 Sodium 135 - 146 mmol/L 140 Potassium 3.5 - 5.1 mmol/L 4.3 Chloride 98 - 107 mmol/L 106 CO2 22 - 32 mmol/L 24 Anion Gap 7 - 15 mmol/L 10 Glucose 70 - 120 mg/dL 94 Albumin 3.8 - 5.0 g/dL 3.7 (L) AST 10 - 35 U/L 13 Alkaline Phosphatase 35 - 130 U/L 61 Bilirubin, Total <=1.2 mg/dL 0.4 Calcium 8.4 - 10.2 mg/dL 9.1 Protein 6.0 - 8.3 g/dL 5.9 (L) ALT 10 - 35 U/L 22 WBC 4.00 - 10.80 K/uL 6.74 RBC 3.85 - 5.15 M/uL 5.21 HGB 12.0 - 15.3 g/dL 14.9 HCT 36.0 - 45.2 % 43.1 MCV 81.5 - 97.5 fL 82.7 MCH 27.0 - 34.0 pg 28.6 MCHC 32.0 - 36.0 g/dL 34.6 RDW 11.5 - 15.5 % 14.0 PLT 140 - 400 K/uL 326 MPV 6.6 - 11.1 fL 11.8 Triglycerides <=174 mg/dL 196 (H) Cholesterol <200 mg/dL 206 (H) HDL Cholesterol >49 mg/dL 47 (L) Non-HDL Cholesterol <=159 mg/dL 159 LDL Cholesterol <=129 mg/dL 120 Iron 33 - 151 ug/dL 118 Iron Binding Capacity 250 - 425 ug/dL 401 Transferrin Saturation Percent 15 - 55 % 29 Hemoglobin A1C 4.0 - 5.6 % 5.0 Estimated Average Glucose <126 mg/dL 97 HIV Antigen & Antibody Negative Negative Hepatitis C Antibody Negative Negative Vitamin A (Retinol) 38 - 98 mcg/dL 60 ZINC 60 - 130 mcg/dL 71 Folic Acid >4.5 ng/mL 15.4 PTH 15 - 65 pg/mL 55 COPPER 70 - 175 mcg/dL 248 (H) Ferritin 13 - 150 ng/mL 24 Vitamin B1 (Thiamine),B 78 - 185 nmol/L 151 Vitamin B12 232 - 1,245 pg/mL 226 (L) Insulin 3 - 25 uU/mL 21 25-Hydroxy Vitamin D >19 ng/mL 23 Legend: (L) Low (H) High Past Medical History: Diagnosis Date Anxiety ROSANNE (generalized anxiety disorder) 11/24/2022 Gastritis Migraine headache Migraine with aura and without status migrainosus, not intractable 11/24/2022 PCOS (polycystic ovarian syndrome) 05/27/2012 Seizures (HCC) sees Dr Gutierrez, not on any seizure medication Norgestimate-Eth Estradiol 0.25-35 MG-MCG Oral Tablet (Sprintec 28) Topiramate 25 MG Oral Tablet (Topamax) Fluorometholone 0.1 % Ophthalmic Suspension (FML) Semaglutide(0.25 or 0.5MG/DOS) 2 MG/3ML Solution Pen-injector (Ozempic) Montelukast Sodium 10 MG Oral Tablet (Singulair) Escitalopram Oxalate 10 MG Oral Tablet (Lexapro) Excedrin Migraine 250-250-65 MG Oral Tablet (Nuhvave-Tzewdepoiwfdg-Wvoumgdw) Extensive ROS Constitutional (f/c/wt/vision/hearing): Negative and wears glasses, eye exam current Resp (cough/sob/giles): Negative CV (cp/palp/fluttering/diaphoresis/giles/pnd):Negative GI (n/v/d/hrtburn): Negative Endo (hair/cold or heat intol/ 3 p's): Negative Neuro (shaking/weak/fatigu/parasthesi/): Negative Skin (rash/easy bruis/xerosis): Negative Psy (si/hi/halluc/): Negative (nocturia/hesit/drib/sexual review): Negative Lymph (swollen glands/b sx's/: Negative Physical Exam Vitals: 04/23/24 0756 Temp: 35.8 C (96.5 F) Pulse: 78 Resp: 16 SpO2: 98% BP: 116/86 BMI: 56.5 BP Readings from Last 3 Encounters: 04/23/24 116/86 04/02/24 120/78 01/29/24 106/82 Wt Readings from Last 3 Encounters: 04/23/24 (!) 178.6 kg (393 lb 12.8 oz) 04/02/24 (!) 176.8 kg (389 lb 12.8 oz) 01/29/24 (!) 184.4 kg (406 lb 8 oz) BMI Readings from Last 3 Encounters: 04/23/24 56.50 kg/m 04/02/24 55.80 kg/m 01/29/24 58.72 kg/m Ht Readings from Last 3 Encounters: 04/23/24 1.778 m (5' 10") 04/02/24 1.78 m (5' 10.08") 01/01/24 1.772 m (5' 9.76") General: alert, healthy, and no distress Head: Normocephalic, No masses, lesions, tenderness or abnormalities Eye Exam: PERRLA, extraocular movements intact, conjunctiva are pink and non- injected, sclera clear Ears: External ears normal, Canals clear, TM's Normal Nose: no mucosal erythema, no mucosal edema, no purulent discharge Oropharynx: no exudate, no erythema, lips, buccal mucosa, and tongue normal, and mucous membranes are moist Neck: supple, no adenopathy, no bruits, thyroid normal size, non-tender, without nodularity Heart: regular rate & rhythm, no murmur, no gallops, S-1 normal, and S-2 normal Lungs: chest symmetric with normal AP diameter, no chest deformities noted, no chest wall tenderness, lungs clear to auscultation Pulses: carotid=2/4 w/o bruits Abdomen: abdomen soft, non-tender, normal bowel sounds, and no masses or organomegaly Back: back symmetric, no curvature, no costovertebral angle tenderness, range of motion is normal Extremities: less than 2 second capillary refill, no joint deformities, effusion, or inflammation Neuro Exam: alert & oriented x 3 with fluent speech, no focal motor/sensory deficits, gait normal, reflexes normal and symmetric Breasts: Inspection negative, No nipple retraction or dimpling, No nipple discharge or bleeding, Noaxillary or supraclavicular adenopathy, Normal to palpation without dominant masses Pelvic Exam: External genitalia and vagina anatomy within normal limits, No significant vulvar lesions, No significant vaginal discharge, Cervix normal in appearance without lesions or purulent discharge, Uterus is normal size, shape, and consistency, Adnexea normal bilaterally. No abnormal pelvic masses, Pap obtained with broom Exam (Female): external genitalia and vagina anatomy within normal limits, no vaginal discharge,urethra normal with no lesion or discharge, bladder non tender Skin: skin color, texture, turgor are normal, no rashes or significant lesions Assessment and Plan Encounter for surveillance of contraceptive pills (Primary) - MOISTURE CONDITIONER OPERATOR PAP SCREEN Encounter for gynecological examination without abnormal finding - MOISTURE CONDITIONER OPERATOR PAP SCREEN Screening for malignant neoplasm of cervix - MOISTURE CONDITIONER OPERATOR PAP SCREEN PCOS (polycystic ovarian syndrome) - Norgestimate-Eth Estradiol 0.25-35 MG-MCG Oral Tablet (Sprintec 28); Take 1 Tablet by mouth in the morning. In the morning.. Other orders - Topiramate 25 MG Oral Tablet (Topamax); Take 1 Tablet by mouth in the morning and 1 Tablet at noon and 1 Tablet in the evening. Pap today Cont ocp Labs current Wrap-Up Time: I spent a total of 30-39 minutes (exact time 31 mins) on the date of service in preparation, delivery, and documentation of the care provided to Dina Acosta excluding any time spent in the performance of separately billed services. Marlyn Álvarez PA-C 04/23/2024 8:21 AM documented in this encounter Nursing Notes * Precious Carbajal LPN - 04/23/2024 7:58 AM EDT The patient has been properly identified by confirmation of name and date of . Chief Complaint Patient presents with PAP Patient is here today for a PAP. Patient states no concerns. documented in this encounter Plan of Treatment Upcoming Encounters Date Type Department Care Team (Late st Contact Info) Description 05/05/2024 12:40 PM EDT Telemedicine Nutrition & Weight Management, [facility] [address] [address] Josie Dennison PA-C [address] [place] [address] 05/05/2024 1:30 PM EDT Telemedicine Nutrition & Weight Management, [facility] [address] [address] [facility], Surgery Class Provider Wyatt [address] [place] [address] 05/07/2024 12:40 PM EDT Office Visit Podiatry [facility] [address] [place] [address] Rowena Mckee, MAYI [address] [place] [address] 06/04/2024 11:30 AM EDT Telemedicine Nutrition and Weight Management, [place] [address] [place] [address] Rachael Cortez, RDN [address] [place] [address] 06/25/2024 9:10 AM EDT Office Visit [facility] [address] [place] [id number] Cinthya Hatfield, DO [address] [place] [address] 07/03/2024 8:00 AM EDT Telemedicine Nutrition and Weight Management [address] [place] [address] Dina Santamaria CRNP [address] [place] [address] 07/07/2024 8:00 AM EDT Office Visit Dermatology [facility] [place] [address] [place], [place] [address] Armando Balderas MD [address] [place] [address] Health Maintenance Due Date Last Done Comments [...] Procedure Name Priority Date/Time Associated Diagnosis Comments HUMAN PAPILLOMA VIRUS, PROBE Routine 04/23/2024 8:47 AM EDT Encounter for surveillance of contraceptive pills Encounter for gynecological examination without abnormal finding Screening for malignant neoplasm of cervix MOISTURE CONDITIONER OPERATOR PAP SCREEN Routine 04/23/2024 8:47 AM EDT Encounter for surveillance of contraceptive pills Encounter for gynecological examination without abnormal finding Screening for malignant neoplasm of cervix documented in this encounter Results * HUMAN PAPILLOMA VIRUS, PROBE (04/23/2024 8:47 AM EDT) Human Papilloma Virus Result Negative Not Applicable 04/29/2024 2:32 PM EDT LABORATORY [facility] [place] Comment: No high/intermediate-risk Human Papillomavirus (HPV E6/E7 messenger RNA) detected by nucleic acid amplification. This assay looks for high/intermediate risk Human Papillomavirus (HPV E6/E7 messenger RNA) by nucleic acid amplification. This assay includes the qualitative detection of HPV types 16,18,31,33,35,39,45,51,52,56,58,59,66 and 68 from cervical specimens. This assay has been FDA cleared for Thin prep collection vials. This assay has not been approved for use as a primary screening test for HPV and should be tested in conjunction with a PAP screen. If collected utilizing a Surepath vial, the collection and specimen preparation of this test was developed, and its performance characteristics determined by [facility]. It has not been cleared or approved by the U.S. Food and Drug Administration (FDA). The FDA has determined that such clearance or approval is not necessary. This assay has been performed at [facility], [address] [place] [address]. [id number]. Pap Test Specimen from wound / Unknown 04/23/2024 8:47 AM EDT 04/24/2024 8:31 PM EDT Marlyn Álvarez PA-C LAB MICRO - GENER AL ORDERABLES Performing Organization Address City/State/[facility] Co de Phone Number LABORATORY [address] [address] * MOISTURE CONDITIONER OPERATOR PAP SCREEN (04/23/2024 8:47 AM EDT) Final Diagnosis A. Cervix, SurePath Pap test: Adequacy: Satisfactory for evaluation; no transformation zone component identified. Interpretation: Negative for Intraepithelial lesion or malignancy (Mckenzie System). AUTOMATED REVIEW: Focal Point computerized screening device (quintile 4, review). 04/29/2024 2:32 PM EDT LABORATORY [facility] [place] Performing Labs Dump Truck Operator screening performed at [facility] ([facility]), [address] [place] [address]. 04/29/2024 2:32 PM EDT LABORATORY [facility] [place] Gross Description A. Cervix. SurePath vial received labeled with the patient's identification. 04/29/2024 2:32 PM EDT LABORATORY [facility] – [place] EDUCATIONAL NOTE: The Pap test (thin-layer cervical screening specimen) is a screening test that aids in the detection of cervical cancer and cancer precursors. Both false positive and false negative results can occur. The test should be used at regular intervals (as per the ASCCP guidelines) and positive results should be confirmed before definitive therapy. Discrepancies between the Pap test findings and clinical impressions should be resolved with diagnostic tests such as colposcopy and biopsy. 04/29/2024 2:32 PM EDT LABORATORY [facility] [place] Case Report Gynecologic Cytology Report Case: [id number] Authorizing Provider: Marlyn Álvarez PA-C Collected: 04/23/2024 08:47 AM Ordering Location: [facility], Received: 04/23/2024 08:47 AM [place] First Screen: Mary Ortiz, CT(ASCP) Specimen: SurePath Pap test, Cervix 04/29/2024 2:32 PM EDT LABORATORY [facility] PAP Indication for Procedure: Routine Pap 04/29/2024 2:32 PM EDT LAB[facility]ATORY [facility] PAP Previous Cancer: None 04/29/2024 2:32 PM EDT LAB[facility]ATORY [facility] HPV Permissions: HPV Regardless (Including cotest) 04/29/2024 2:32 PM EDT LAB[facility]ATORY [facility] PAP Contraceptive History: control pills 04/29/2024 2:32 PM EDT LAB[facility]ATORY [facility] PAP Menstrual Status: Pre-menopausal 04/29/2024 2:32 PM EDT LAB[facility]ATORY [facility] Pap Test Specimen from wound / Unknown 04/23/2024 8:47 AM EDT 04/23/2024 8:47 AM EDT Marlyn Álvarez PA-C LAB CYTOLOGY [facility]IV[facility] Organization Address City/State/ZIP Co de Phone Number LABORATORY [facility] – [place] [address] [place] [address] documented in this encounter Visit Diagnoses Diagnosis Encounter for surveillance of contraceptive pills- Primary Surveillance of previously prescribed contraceptive pill Encounter for gynecological examination without abnormal finding Routine gynecological examination Screening for malignant neoplasm of cervix Screening for malignant neoplasm of the cervix PCOS (polycystic ovarian syndrome) Polycystic ovaries documented in this encounter Care Teams Unhairer Relationship Specialty Start Date End Date Cinthya Hatfield DO [address] [facility] [place] [address] PCP - General Family Medicine 01/29/24 documented as of this encounter
--- OUTSIDE RECORDS SUMMARY | 2024-09-17 06:16 | External Medical Summary ---
Author Name Unknown Address Unknown Organization K01:LABORATORY [address] [address] Laboratory Report Ordering Provider Test Date Status YANELI SANTANA 04/23/2024 08:47:00 Final Observation Date Value Abnormality Reference (Units ) Status Human papilloma virus E6+E7 mRNA [Presence] in Cervix by EZEKIEL with probe detection 04/23/2024 08:47:00 Negative Not Applicable Final No high/intermediate-risk Hu man Papillomavirus (HPV E6/E7 messenger RNA) detected by [...] developed, and its performance characteristics determined by [facility]. It has not been cleared or approved by the U.S. Food and Drug Administration (FDA). The FDA has determined that such clearance or approval is not necessary.
This assay has been performed at [facility], [address] [place] [address], [place]. [address]. Performing Location LABORATORY [address] [address]
--- OUTSIDE RECORDS SUMMARY | 2024-09-17 06:16 | External Medical Summary | Summary of Care ---
Author Name Unknown Organization [facility] Address [address] [place] [place] [place] [address] Phone [phone] Care Team Providers Care Worksite Wellness Practitioner Name Role Phone Cassius Hatfielda Jeremy OROZCO Primary Care Provider [phone] Encounter Details Date Type Department Care Team (Late st Contact Info) Description 05/05/2024 12:40 PM EDT Telemedicine Nutrition & Weight Management, [facility] [address] [place] [address] Josie Dennison PA-C [address] [place] [address] Morbid obesity due to excess calories (HCC)*; B12 deficiency; Vitamin D deficiency Allergies Active Allergy Reactions Criticality Noted Date Comments Amoxicillin 11/23/2005 Diphenhydramine Other (Please comment) High 11/29/19 18 Cephalexin High 04/23/2019 Itchy, hives, throat closing, chest tightness. documented as of this encounter (statuses as of 05/05/2024) Medications Medication Sig Dispensed Refills Start Date [...] as of this encounter (statuses as of 05/05/2024) Active Problems Problem Noted Date Diagnosed Date [...] as of this encounter (statuses as of 05/05/2024) Resolved Problems Problem Noted Date Diagnosed Date [...] as of this encounter (statuses as of 05/05/2024) Immunizations Name Administration Dates Next Due COVID-19 mRNA, LNP-s, No Pre serve, 2-Dose Series ([employer]) 08/29/2021,10/03/2020,09/12/2020 Hepatitis B, 20+ yrs 04/27/2022,12/15/2021,11/10 MMR [...] No 04/24/2024 Does the household have a [facility] source of income? (Household - for ages [...] as of this encounter Progress Notes * Josie Dennison PA-C - 05/05/2024 12:38 PM EDT Comprehensive Weight Management Clinic Note Surgery Class Patient location: HOME. I was in a hospital or clinic location. After connecting through [employer],patient was verified with two unique identifiers. Patient (or authorized legal pharmacy services representative) was then informed that this was a Telemedicine visit and being conducted confidentially over secure lines. Methods to assure confidentiality were taken. Patient acknowledged consent and understanding of pr ivacy and security of the Telemedicine visit. The patient agreed to participate. There are no exam notes on file for this visit. Dina Acosta presents in follow up to the comprehensive weight management clinic. The patient is a33 year old female Wt Readings from Last 6 Encounters: 05/01/24 (!) 174.2 kg (384 lb) 04/23/24 (!) 178.6 kg (393 lb 12.8 oz) 04/02/24 (!) 176.8 kg (389 lb 12.8 oz) 01/29/24 (!) 184.4 kg (406 lb 8 oz) 01/01/24 (!) 189.5 kg (417 lb 11.2 oz) 12/25/23 (!) 190.8 kg (420 lb 9.6 oz) Patient is receiving ongoing education regarding dietary and physical modifications for weight loss. Patient is interested in the following treatment options for obesity: medical management and surgical options including Sherwin-en-Y gastric bypass, biliopancreatic diversion with duodenal switch, or laparoscopic sleeve gastrectomy. - Initial clinic visit 10/17/2023 Weight 410 lbs Height 69" Body mass index is 60.34 kg/m. -program goal weight: 369 - Today's weight: 387 lbs - Total weight loss of -23 since initial weight in clinic - Patient's last follow up with GI/Nutrition clinic was on 04/02/24. - The patient's weight has -2 lbs since the last visit 05/05/24 -Surgery class -EGD/H pylori - EGD done but Hpylori pending -RD - YELLOW - 06/04/24 -Behavioral Medicine - Green with behavioral changes -on Ozempic 0.5mg - tolerating well 04/02/2024 BME On ozempic 0.5mg weekly-- losing [...] weight loss in the past without significant retirement success. Previous interventions: Self-directed. Tried meal prep The patient confirms any past pharmacotherapy for weight loss topamax . Patient Active Problem List Diagnosis Class 3 severe obesity due to excess calories without serious comorbidity with body mass index (BMI) of 60.0 to 69.9 in adult (HCC) PCOS (polycystic ovarian syndrome) Super obese Migraine with aura and without status migrainosus, not intractable ROSANNE (generalized anxiety disorder) Hyperinsulinemia Left-sided low back pain with left-sided sciatica Review of Systems: The patient denies any chest pain, shortness of breath, palpitations or ankle edema. Since the lastvisit there have been no problems with Abdominal pain / cramps and Diarrhea. Current Medications: Current Outpatient Medications Medication Sig Dispense Refill Excedrin Migraine 250-250-65 MG Oral Tablet (Mbbplte-Owqtjxxrwrhun-Xkjafsfy) Take 1 Tablet by mouth3 times a day as needed for Migraine. Escitalopram Oxalate 10 MG Oral Tablet (Lexapro) Take 1 Tablet by mouth in the morning. 30 Tablet 5 Montelukast Sodium 10 MG Oral Tablet (Singulair) Take 1 Tablet by mouth in the morning. 90 Tablet 3 Semaglutide(0.25 or 0.5MG/DOS) 2 MG/3ML Solution Pen-injector (Ozempic) Inject 0.5 mg under the skin once a week. 9 mL 2 Fluorometholone 0.1 % Ophthalmic Suspension (FML) INSTILL [...] taking: Reported on 05/01/2024) 2 mL 3 No current facility-administered medications for this visit. Water intake: yes Prescribed diet: [id number] Calorie Controlled Current diet: Working on getting protein in Working on eating behaviors Food logs: No Type of exercise: Walking Weight loss Pharmacotherapy: yes Semaglutide 0.5 mg weekly There were no vitals taken for this visit. PHYSICAL EXAMINATION: General: Patient awake alert and oriented. Patient is well appearing and in no acute distress. Skin: No rashes. HEENT: Head is atraumatic, normocephalic. EOMs intact Abdomen: Obese Neuro: No focal deficits Psych: Appropriate mood and affect. Assessment and Plan: Abnormal weight gain / There is no height or weight on file to calculate BMI. / Morbid obesity : - Would like to proceed with medical management and surgical options including laparoscopic sleeve gastrectomy - Barriers are consistency - Motivators are feeling better overall, avoiding/reducing co-morbid conditions - The patient was encouraged to to avoid all fruit juices and regular sodas, consume at least 64 ounces of water per day, keep food logs and get weighed on a weekly basis. They were encouraged to increase physical activity as prescribed. - Handouts regarding nutrition and physical activity were provided, as appropriate. Goals for next month: - Practice what you learned in the classes - Continue with current diet plan - Continue with your exercises and increase as much as possible Diagnoses and all orders for this visit: Morbid obesity due to excess calories (HCC) -continue surgery program B12 deficiency -has not started supplementation yet Vitamin D deficiency -has not started supplementation yet Abnormal weight gain PCOS (polycystic ovarian syndrome) Patients with PCOS/hyperinsulinemia tend to respond well to a low-carb diet. Limit processed carbs/sugary foods & drinks; focus on meals consisting primarily of protein, vegetables, fruit, healthy fats, & whole grains ROSANNE (generalized anxiety disorder) Reports stable- some days worse than others Hyperinsulinemia The Possibility of bariatric surgery: The patient attended the third of our group sessions today regarding bariatric surgery. Information regarding medical complications of obesity and medical outcomes following surgery was included. A description of the different types of bariatric surgeries, introduction to the surgeons, risks and complications of bariatric surgery as well as surgical outcomes was provided. Patient respo nsibilities were reviewed. A question and answer session followed. The bariatric checklist was reviewed with patient and updated in addition to review of labs, imaging, and potential referrals. The patient agreed to try the plan as discussed and return in 1 month. They were encouraged to callor send a patient portal message in the meantime with any questions or concerns prior to their nextclinic visit. I spent a total of 20 minutes on the date of service in preparation, delivery, and documentation ofthe care provided to Dina Acosta excluding any time spent in the performance of separately billedservices. This included but was no limited to providing counseling about the benefits of weight loss, about their nutritional status, detailed explanations about calorie count, types of nutrients to choose, and composition of the meals. Motivational interview provided in order to prepare the patient to achieve future goals. Josie HENRY, MPH [facility] Nutrition and Weight Management [facility] ([facility]) documented in this encounter Plan of Treatment Upcoming Encounters Date Type Department Care Team (Late st Contact Info) Description 05/05/2024 1:30 PM EDT Telemedicine Nutrition & Weight Management, [facility] [address] [facility] [place] [address] [facility], Surgery Class Provider Wyatt Santamaria [facility] [place] [address] 05/07/2024 12:40 PM EDT Office Visit Podiatry [facility] [address] [facility] [place] [address] Rowena Mckee DPM [address] [place] [address] 06/04/2024 11:30 AM EDT Telemedicine Nutrition and Weight Management, [place] [address] [place] [address] Rachael Cortez RDN [address] [place] [address] 06/25/2024 9:10 AM EDT Office Visit [facility] [address] [place] [facility] [place] [id number] Cinthya Hatfield DO [address] [place] [facility] [place] [facility] [address] 07/03/2024 8:00 AM EDT Telemedicine Nutrition and Weight Management [place] [address] [facility] [place] [address] Dina Santamaria CRNP [address] [place] [address] 07/07/2024 8:00 AM EDT Office Visit Dermatology [facility] [place] [address] [facility] [place] [address] Armando Balderas MD [address] [facility] [place], [place] [address] Health Maintenance Due Date Last Done Comments [...] obesity due to excess calories (HCC)- Primary B12 deficiency Other B-complex deficiencies Vitamin D deficiency Unspecified vitamin D deficiency documented in this encounter Care Teams Worksite Wellness Practitioner Relationship Specialty Start Date End Date Cinthya Hatfield DO [address] [place] [address] PCP - General Family Medicine 01/29/24 documented as of this encounter
--- OUTSIDE RECORDS SUMMARY | 2024-09-17 06:16 | External Medical Summary | Summary of Care ---
Author Name Unknown Organization [facility] Address [address] [place] [address] Phone [phone] Care Team Providers Care Bulb Filler Name Role Phone Cinthya Hatfield DO Primary Care Provider [phone] Encounter Details Date Type Department Care Team (Late st Contact Info) Description 04/07/2024 Telephone Nutrition & Weight Management, [facility] [address] [place] [address] Kandis Marti PA-C [address] [place] [address] Allergies Active Allergy Reactions Criticality Noted Date Comments Amoxicillin 11/23/2005 Diphenhydramine Other (Please comment) High 11/29/19 18 Cephalexin High 04/23/2019 Itchy, hives, throat closing, chest tightness. documented as of this encounter (statuses as of 04/07/2024) Medications Medication Sig Dispensed Refills Start Date [...] as of this encounter (statuses as of 04/07/2024) Active Problems Problem Noted Date Diagnosed Date [...] as of this encounter (statuses as of 04/07/2024) Resolved Problems Problem Noted Date Diagnosed Date [...] as of this encounter (statuses as of 04/07/2024) Immunizations Name Administration Dates Next Due COVID-19 mRNA, LNP-s, No Pre serve, 2-Dose Series ([employer]) 08/29/2021,10/03/2020,09/12/2020 Hepatitis B, 20+ yrs 04/27/2022,12/15/2021,11/10 MMR [...] Care Team (Latest Contact Info) Description 4 9:45 AM EDT Imaging Radiology [facility] [address] [facility] [place] [address] 4 8:00 AM EDT Office Visit [facility] [address] [place] [address] Marlyn Álvarez PA-C [address] [place] [address] 4 11:00 AM EDT Telemedicine Psychology Fernanda Lopez [address] [place] [address] Debbie Pelletier, PhD [address] [facility] [place] [address] 4 12:40 PM EDT Telemedicine Nutrition & Weight Management, [facility] [address] [place] [address] Josie Dennison PA-C [address] [place] [address] 4 1:30 PM EDT Telemedicine Nutrition & Weight Management, [facility] [place] [address] [facility], Surgery Class Provider [facility] [address] [place] [address] 4 11:30 AM EDT Telemedicine Nutrition and Weight Management, [place] [address] [address] [place] [address] Rachael Cortez, RDN [address] [place] [address] 4 9:10 AM EDT Office Visit [address] [address] Cinthya Hatfield, [address] [place] [address] 4 8:00 AM EDT Telemedicine Nutrition and Weight Management [address] [place] [address] Dina Santamaria CRNP [address] [place] [address] 4 8:00 AM EDT Office Visit Dermatology [facility] [place] [address] [facility] [address] Armando Balderas MD [address] [place] [address] 4 1:08 PM EST Hospital Encounter OR [facility], Operating Room, [facility] - 4th Floor [address] [place] [address] Macy Solomon MD [address] [place] [address] 4 1:08 PM EST - 4 1:47 PM EST Surgery OR [facility], Operating Room, [facility] - 4th Floor [address] [place] [address] Macy Solomon MD [address] [place] [address] ESOPHAGOGASTRODUODENOSCOPY (EGD), FLEXIBLE, TRANSORAL, DIAGNOSTIC Scheduled Orders Name Type Priority Associated Diagnoses Orde r Schedule COPPER, SERUM OR PLASMA Lab Routine Abnormal blood level of copper Expected: 06/08/2024 (Approximate), Expires: 10/08/2024 VITAMIN B12 Lab Routine B12 deficiency Expected: 06/08/2024 (Approximate), Expires: 10/08/2024 25-HYDROXY VITAMIN D Lab Routine Vitamin D deficiency Expected: 06/08/2024 (Approximate), Expires: 10/08/2024 Scheduled Procedures Name Priority Associated Diagnoses Date/Ti me ESOPHAGOGASTRODUODENOSCOPY ( EGD), FLEXIBLE, TRANSORAL, DIAGNOSTIC Morbid obesity due to excess calories (HCC) 07/20/2024 1:08 PM EST Health Maintenance Due Date Last Done Comments Depression Screening 04/11/2023 04/11/2022 PAP SMEAR-EVERY 2 YRS,AGES 18-100 04/12/2023 04/12/2021, 05/16/2018, 02/07/2017, Additional history exists COVID-19 Vaccine ( - 2022- season) 2023 08/29/2021, 10/03/2020, 09/12/2020 Influenza Vaccine [...] of this encounter Visit Diagnoses Diagnosis Abnormal blood level of copper- Primary Other abnormal blood chemistry B12 deficiency Other B-complex deficiencies Vitamin D deficiency Unspecified vitamin D deficiency Morbid obesity due to excess calories (HCC) documented in this encounter Care Teams Bulb Filler Relationship Specialty Start Date End Date Cinthya Hatfield DO [address] [place] [address] PCP - General Family Medicine 01/29/24 documented as of this encounter
--- OUTSIDE RECORDS SUMMARY | 2024-09-17 06:16 | External Medical Summary | Summary of Care ---
Author Name Unknown Organization [facility] Address [address] [place] [address] Phone [phone] Care Team Providers Care Mercury Washer Name Role Phone Rosamary annCinthya DO Primary Care Provider Reason for Visit * Reason Comments PAP Patient is here toda y for a PAP. Patient states no concerns. Encounter Details Date Type Department Care Team (Latest Contact Info) Description 04/23/2024 8:00 AM EDT Office Visit [facility] [address] [place] [address] Marlyn Álvarez PA-C [address] [place] [address] Encounter for surveillance of contraceptive pills*; Encounter for gynecological examination without abnormal finding; Screening for malignant neoplasm of cervix; PCOS (polycystic ovarian syndrome) Allergies Active Allergy Reactions Criticality Noted Date Comments Amoxicillin 11/23/2005 Diphenhydramine Other (Please comment) High 11/29/19 18 Cephalexin High 04/23/2019 Itchy, hives, throat closing, chest tightness. documented as of this encounter (statuses as of 04/23/2024) Medications Medication Sig Dispensed Refills Start Date [...] as of this encounter (statuses as of 04/23/2024) Active Problems Problem Noted Date Diagnosed Date [...] as of this encounter (statuses as of 04/23/2024) Resolved Problems Problem Noted Date Diagnosed Date [...] as of this encounter (statuses as of 04/23/2024) Immunizations Name Administration Dates Next Due COVID-19 mRNA, LNP-s, No Pre serve, 2-Dose Series ([facility]) 08/29/2021,10/03/2020,09/12/2020 Hepatitis B, 20+ yrs 04/27/2022,12/15/2021,11/10 MMR [...] (Lexapro) Excedrin Migraine 250-250-65 MG Oral Tablet (Cggjols-Skzuxmrkzqizk-Jujgmgyc) Extensive ROS Constitutional (f/c/wt/vision/hearing): Negative and wears [...] for surveillance of contraceptive pills (Primary) - AIR EXPORT COORDINATOR PAP SCREEN Encounter for gynecological examination without abnormal finding - AIR EXPORT COORDINATOR PAP SCREEN Screening for malignant neoplasm of cervix - AIR EXPORT COORDINATOR PAP SCREEN PCOS (polycystic ovarian syndrome) - [...] Care Team (Latest Contact Info) Description 4 11:00 AM EDT Telemedicine Psychology Fernanda Lopez [address] [place] [id number] Debbie Pelletier, PhD [address] [facility] [place] [address] 4 12:40 PM EDT Telemedicine Nutrition & Weight Management, [facility] [address] [facility] [place] [address] Josie Dennison PA-C [address] [facility] [place] [address] 4 1:30 PM EDT Telemedicine Nutrition & Weight Management, [facility] [address] [facility] [place] [address] [facility], Surgery Class Provider [facility] [address] [facility] [place] [address] 4 12:40 PM EDT Office Visit Podiatry [facility] [address] [facility] [place] [address] Rowena Mckee DPM [address] [place] [address] 4 11:30 AM EDT Telemedicine Nutrition and Weight Management, [place] [address] [place] [address] Rachael Cortez, MARYLOUN [address] [place] [address] 4 9:10 AM EDT Office Visit [facility] [address] [place] [address] Cinthya Hatfield, [address] [facility] [place] [address] 4 8:00 AM EDT Telemedicine Nutrition and Weight Management [address] [place] [address] Dina Santamaria CRNP [address] [place] [address] 4 8:00 AM EDT Office Visit Dermatology [facility] [address] [facility] [place] [address] Armando Balderas MD [address] [facility] [place] [address] 4 1:08 PM EST Hospital Encounter OR [facility], Operating Room, [facility] - 4th Floor [address] [facility] [place] [address] aMcy Solomon MD [address] [place] [address] 4 1:08 PM EST - 4 1:47 PM EST Surgery OR [facility], Operating Room, [facility] - 4th Floor [address] [facility] [place] [address] Macy Solomon MD [address] [place] [address] ESOPHAGOGASTRODUODENOSCOPY (EGD), FLEXIBLE, TRANSORAL, DIAGNOSTIC Scheduled Orders Name Type Priority Associated Diagnoses Orde r Schedule AIR EXPORT COORDINATOR PAP SCREEN Pathology Routine Encounter for surveillance of contraceptive pills Encounter for gynecological examination without abnormal finding Screening for malignant neoplasm of cervix Ordered: 04/23/2024 Scheduled Procedures Name Priority Associated Diagnoses Date/Ti me ESOPHAGOGASTRODUODENOSCOPY ( EGD), FLEXIBLE, TRANSORAL, DIAGNOSTIC Morbid obesity due to excess calories (HCC) 07/20/2024 1:08 PM EST Health Maintenance Due Date Last Done Comments PAP SMEAR-EVERY 2 YRS,AGES 18-100 04/12/2023 04/12/2021, 05/16/2018, 02/07/2017, Additional history exists COVID-19 Vaccine ( season) 2023 08/29/2021, 10/03/2020, 09/12/2020 Influenza Vaccine (FLU shot) (#1) 2024 07/19/2022, 07/19/2022, 06/21/2021, Additional history exists DTaP,Tdap,and Td Vaccines (2 - Td or Tdap) 05/28/2024 05/28/2014 Depression Screening 04/23/2025 04/23/2024 Hepatitis B Vaccine Completed 04/27/2022, 12/15/2021, 11/10/2021 [...] as of this encounter Visit Diagnoses Diagnosis Encounter for surveillance of contraceptive pills- Primary Surveillance of previously prescribed contraceptive pill Encounter for gynecological examination without abnormal finding Routine gynecological examination Screening for malignant neoplasm of cervix Screening for malignant neoplasm of the cervix PCOS (polycystic ovarian syndrome) Polycystic ovaries Morbid obesity due to excess calories (HCC) documented in this encounter Care Teams Mercury Washer Relationship Specialty Start Date End Date Cinthya Hatfield DO [address] [place] [address] PCP - General Family Medicine 01/29/24 documented as of this encounter
--- OUTSIDE RECORDS SUMMARY | 2024-09-17 06:16 | External Medical Summary | Summary of Care ---
Author Name Unknown Organization [facility] Address [address] [place] [address] Phone [phone] Care Team Providers Care Car Driver Name Role Phone GuillaumeCinthya murillo Jeremy OROZCO Primary Care Provider [phone] Reason for Visit * Reason Onset Date Comments MyCode - Took Form To Consider 04/10/2024 Encounter Details Date Type Department Care Team (Late st Contact Info) Description 04/10/2024 Orders Only Outcomes Research Department [address] [place] [address] Abbie Gutierrez CHRA MyCode Nonconsent Documentation Allergies Active Allergy Reactions Criticality Noted Date Comments Amoxicillin 11/23/2005 Diphenhydramine Other (Please comment) High 11/29/19 18 Cephalexin High 04/23/2019 Itchy, hives, throat closing, chest tightness. documented as of this encounter (statuses as of 04/10/2024) Medications Medication Sig Dispensed Refills Start Date [...] as of this encounter (statuses as of 04/10/2024) Active Problems Problem Noted Date Diagnosed Date [...] as of this encounter (statuses as of 04/10/2024) Resolved Problems Problem Noted Date Diagnosed Date [...] as of this encounter (statuses as of 04/10/2024) Immunizations Name Administration Dates Next Due COVID-19 mRNA, LNP-s, No Pre serve, 2-Dose Series (Simpli[employer]) 08/29/2021,10/03/2020,09/12/2020 Hepatitis B, 20+ yrs 04/27/2022,12/15/2021,11/10 MMR [...] as of this encounter Progress Notes * Abbie Gutierrez CHRA - 04/10/2024 10:11 AM EDT MyCode Nonconsent Documentation Dina Acosta was approached in the clinic regarding participation in the MyCode Project and did not consent. documented in this encounter Plan of Treatment Upcoming Encounters Date Type Department Care Team (Latest Contact Info) Description 4 8:00 AM EDT Office Visit [facility] [address] [place] [phone] Marlyn Álvarez PA-C [address] [place] [address] 4 11:00 AM EDT Telemedicine Psychology Fernanda Lopez [address] [place] [phone] Debbie Pelletier, PhD [address] [facility] [place] [address] 4 12:40 PM EDT Telemedicine Nutrition & Weight Management, [facility] [place] [address] Josie Dennison PA-C [facility] [place] [address] 4 1:30 PM EDT Telemedicine Nutrition & Weight Management, [facility] 132 [facility] [place] [address] [facility], Surgery Class Provider [facility] 132 [facility] [place] [address] 4 11:30 AM EDT Telemedicine Nutrition and Weight Management, [place] [address] [place] [address] Rachael Cortez, RDN [address] [place] [address] 4 9:10 AM EDT Office Visit [address] [phone] Cinthya Hatfield, DO [address] [place] [address] 4 8:00 AM EDT Telemedicine Nutrition and Weight Management [address] [place] [address] Dina Santamaria CRNP [address] [place] [address] 4 8:00 AM EDT Office Visit Dermatology [facility] [address] [place] [address] Armando Balderas MD [address] [place] [address] 4 1:08 PM EST Hospital Encounter OR GL, Operating Room, [facility] - 4th Floor [address] [place] [address] Macy Solomon MD [address] [place] [address] 4 1:08 PM EST - 4 1:47 PM EST Surgery OR [facility], Operating Room, [facility] - 4th Floor [address] [place] [address] [place] [address] Macy Solomon MD [address] [place] [address] ESOPHAGOGASTRODUODENOSCOPY (EGD), FLEXIBLE, TRANSORAL, DIAGNOSTIC Scheduled Procedures Name Priority Associated Diagnoses Date/Ti fl ESOPHAGOGASTRODUODENOSCOPY ( EGD), FLEXIBLE, TRANSORAL, DIAGNOSTIC Morbid [...] filedocumented as of this encounter Care Teams Car Driver Relationship Specialty Start Date End Date Cinthya Hatfield DO [address] [place] [address] PCP - General Family Medicine 01/29/24 documented as of this encounter
--- OUTSIDE RECORDS SUMMARY | 2024-09-17 06:16 | External Medical Summary | Summary of Care ---
Author Name Unknown Organization [facility] Address [address] [place] [address] Phone [phone] Care Team Providers Care Smoking Tobacco Packing Machine Hand Name Role Phone Cinthya Hatfield DO Primary Care Provider [phone] Reason for Visit * Reason Comments Outpatient Testing Encounter Details Date Type Department Care Team (Late st Contact Info) Description 04/02/2024 10:40 AM EDT Laboratory Laboratory, [facility] [place] [phone] [facility] 132 [facility] [place] [address] Morbid obesity due to excess calories (HCC) Allergies Active Allergy Reactions Criticality Noted [...] mRNA, LNP-s, No Pre serve, 2-Dose Series ([employer]) 08/29/2021,10/03/2020,09/12/2020 Hepatitis B, 20+ yrs 04/27/2022,12/15/2021,11/10 MMR [...] Care Team (Latest Contact Info) Description 4 10:00 AM EDT Telemedicine Psychology Fern[place] Lopez [address] [place] [phone] Debbie Pelletier, PhD [address] [place] [place] [address] 4 9:45 AM EDT Imaging Radiology [facility] 132 [facility] [place] [address] 4 8:00 AM EDT Office Visit [facility] [address] [place] [phone] Marlyn Álvarez PA-C [address] [place] [address] 4 12:40 PM EDT Telemedicine Nutrition & Weight Management, [facility] [address] [place] [address] Josie Dennison PA-C [address] [place] [address] 4 1:30 PM EDT Telemedicine Nutrition & Weight Management, [facility] [address] [place] [address] [facility], Surgery Class Provider [facility] [address] [facility] [place] [address] 4 11:30 AM EDT Telemedicine Nutrition and Weight Management, [place] [address] [address] [place] [address] Rachael Cortez, HEATHER [address] [place] [address] 4 9:10 AM EDT Office Visit [facility] [address] [place] [phone] Cinthya Hatfield, [address] [place] [address] 4 8:00 AM EDT Telemedicine Nutrition and Weight Management [address] [place] [address] Dina Santamaria CRNP [address] [place] [address] 4 8:00 AM EDT Office Visit Dermat[facility] 200 [facility] [address] [place] [address] Armando Balderas MD 200 [facility] [place] [address] 4 1:08 PM EST Hospital Encounter OR GL, Operating Room, [facility] - 4th Floor [address] [place] [address] Macy Solomon MD [address] [place] [address] 4 1:08 PM EST - 4 1:47 PM EST Surgery OR GL, Operating Room, [facility] - 4th Floor [address] [place] [address] Macy Solomon MD [address] [place] [address] ESOPHAGOGASTRODUODENOSCOPY (EGD), FLEXIBLE, TRANSORAL, DIAGNOSTIC Pending Results Name Type Priority Associated Diagnoses Date /Time VITAMIN A (RETINOL) Lab Routine Morbid obesity due to excess calories (HCC) 04/02/2024 10:22 AM EDT ZINC Lab Routine Morbid obesity due to excess calories (HCC) 04/02/2024 10:22 AM EDT FOLIC ACID Lab Routine Morbid obesity due to excess calories (HCC) 04/02/2024 10:22 AM EDT PTH Lab Routine Morbid obesity due to excess calories (HCC) 04/02/2024 10:22 AM EDT COPPER, SERUM OR PLASMA Lab Routine Morbid obesity due to excess calories (HCC) 04/02/2024 10:22 AM EDT IRON SCREEN, INCLUDING TIBC Lab Routine Morbid obesity due to excess calories (HCC) 04/02/2024 10:22 AM EDT FERRITIN Lab Routine Morbid obesity due to excess calories (HCC) 04/02/2024 10:22 AM EDT VITAMIN B1 (THIAMINE), BLOOD, LC/MS/MS Lab Routine Morbid obesity due to excess calories (HCC) 04/02/2024 10:22 AM EDT VITAMIN B12 Lab Routine Morbid obesity due to excess calories (HCC) 04/02/2024 10:22 AM EDT INSULIN Lab Routine Morbid obesity due to excess calories (HCC) 04/02/2024 10:22 AM EDT COMPREHENSIVE METABOLIC PANEL Lab Routine Morbid obesity due to excess calories (HCC) 04/02/2024 10:22 AM EDT CBC Lab Routine Morbid obesity due to excess calories (HCC) 04/02/2024 10:22 AM EDT HEMOGLOBIN A1C Lab Routine Morbid obesity due to excess calories (HCC) 04/02/2024 10:22 AM EDT LIPID PANEL WITH DIRECT LDL IF TG IS HIGH Lab Routine Morbid obesity due to excess calories (HCC) 04/02/2024 10:22 AM EDT 25-HYDROXY VITAMIN D Lab Routine Morbid obesity due to excess calories (HCC) 04/02/2024 10:22 AM EDT Scheduled Procedures Name Priority Associated Diagnoses Date/Ti [...] Diagnosis Morbid obesity due to excess calories (HCC) Morbid obesity due to excess calories (HCC) documented in this encounter Care Teams Smoking Tobacco Packing Machine Hand Relationship Specialty Start Date End Date Kopinski, Cinthya L, DO [address] [place] [address] PCP - General Family Medicine 01/29/24 documented as of this encounter
--- OUTSIDE RECORDS SUMMARY | 2024-09-17 06:16 | External Medical Summary | Summary of Care ---
Author Name Unknown Organization [facility] Address [address] [place] [address] Phone [phone] Care Team Providers Care Film Spooler Name Role Phone RosaCinthya reese Jeremy OROZCO Primary Care Provider [phone] Reason for Visit * Reason Onset Date Comments Precert Approved 04/27/2024 [email or web address] Encounter Details Date Type Department Care Team (Late st Contact Info) Description 04/27/2024 Telephone Nutrition & Weight Management, [facility] [address] [place] [address] Kandis Marti PA-C [address] [place] [address] Precert Approved (adalberto) Allergies Active Allergy Reactions Criticality Noted Date Comments Amoxicillin 11/23/2005 Diphenhydramine Other (Please comment) High 11/29/19 18 Cephalexin High 04/23/2019 Itchy, hives, throat closing, chest tightness. documented as of this encounter (statuses as of 04/28/2024) Medications Medication Sig Dispensed Refills Start Date End Date Status Excedrin Migraine 250-250-65 MG Oral Tablet (Aspirin-Acetaminophe n-Caffeine) Take 1 Tablet by mouth 3 times [...] a week. 2 mL 3 04/27/2024 Active documented as of this encounter (statuses as of 04/28/2024) Active Problems Problem Noted Date Diagnosed Date [...] as of this encounter (statuses as of 04/28/2024) Resolved Problems Problem Noted Date Diagnosed Date [...] as of this encounter (statuses as of 04/28/2024) Immunizations Name Administration Dates Next Due COVID-19 mRNA, LNP-s, No Pre serve, 2-Dose Series ([email or web address]) 08/29/2021,10/03/2020,09/12/2020 Hepatitis B, 20+ yrs 04/27/2022,12/15/2021,11/10 MMR [...] Telephone Encounter - Nikolay Yarbrough LPN - 04/28/2024 9:13 AM EDT Patient aware and voiced understanding * Telephone Encounter - Veena Henry RN - 04/27/2024 4:11 PM EDT Approved/Denied: approved Drug Name and Formulation: Wegovy 0.5mg/0.5ml pen How Prescribed(directions/sig): inject 0.5mg weekly Day Supply: 2ml per 28 days Did you receive insurance information from outside the chart? No, received insurance information within the chart Valid auth start date: 04/27/24 Valid auth end date: 10/28/24 Rx Insurance Info: jordi FIGUEREDO Reference #:[id number] Roseline Arana Medication Metal Off Bearer II [facility] 04/27/24,3:26 PM * Telephone Encounter - Kandis Marti PA-C - 04/27/2024 9:10 AM EDT Please Start prior authorization for Wegovy 0.5mg weekly dose JORDI ramirez switching from ozempic to wegovy due to formulary change Diagnosis No diagnosis found. Class 3 severe obesity due to excess calories in adult, unspecified BMI, unspecified whether serious comorbidity present (HCC) [E66.01] Patient qualifies for Weight loss medication due to BMI >30 or BMI >27 with obesity related comorbidity BMI Readings from Last 2 Encounters: 04/23/24 56.50 kg/m 04/02/24 55.80 kg/m Wt Readings from Last 2 Encounters: 04/23/24 (!) 178.6 kg (393 lb 12.8 oz) 04/02/24 (!) 176.8 kg (389 lb 12.8 oz) documented in this encounter Plan of Treatment Upcoming Encounters Date Type Department Care Team (Latest Contact Info) Description 12:40 PM EDT Telemedicine Nutrition & Weight Management, [facility] [address] [place] [address] Josie Dennison PA-C [address] [place] [address] 4 1:30 PM EDT Telemedicine Nutrition & Weight Management, [facility] 132 [facility] [place] [address] [facility], Surgery Class Provider [facility] [place] [address] 4 12:40 PM EDT Office [facility] [address] [facility] [place] [address] Rowena Mckee DPM 132 [facility] [place] [address] 4 11:30 AM EDT Telemedicine Nutrition and Weight Management, [place] [address] [place] [address] Rachael Cortez, HEATHER [address] [place] [address] 4 9:10 AM EDT Office Visit [facility] [place] [address] [place] [phone] Cinthya Hatfield DO [address] [place] [address] 4 8:00 AM EDT Telemedicine Nutrition and Weight Management [address] [place] [address] Dina Santamaria CRNP [address] [place] [address] 4 8:00 AM EDT Office Visit Dermatology [facility] [place] 200 [facility] [place] [address] Armando Balderas MD 200 [facility] [place], [place] [address] 4 1:08 PM EST Hospital Encounter OR [facility], Operating Room, [facility] - 4th Floor [address] [place] [address] Macy Solomon MD [address] [place] [address] 4 1:08 PM EST - 4 1:47 PM EST Surgery OR [facility], Operating Room, [facility] - 4th Floor [address] [place] [address] Macy Solomon MD [address] [place] [address] ESOPHAGOGASTRODUODENOSCOPY (EGD), FLEXIBLE, TRANSORAL, DIAGNOSTIC Scheduled Procedures [...] Tdap) 05/28/2024 05/28/2014 Depression Screening 04/24/2025 04/24/2024, 08/08/20 24 Hepatitis B Vaccine Completed 04/27/2022, 12/15/2021, 11/10/2021 [...] filedocumented as of this encounter Care Teams Film Spooler Relationship Specialty Start Date End Date Cinthya Hatfield DO [address] [place] [address] PCP - General Family Medicine 01/29/24 documented as of this encounter
--- OUTSIDE RECORDS SUMMARY | 2024-09-17 06:16 | External Medical Summary | Summary of Care ---
Author Name Unknown Organization [facility] Address [address] [place] [address] Phone [phone] Care Team Providers Care Criminal Investigator Customs Name Role Phone Rosamary annCinthya DO Primary Care Provider Reason for Visit * Reason Comments PAP Patient is here toda y for a PAP. Patient states no concerns. Encounter Details Date Type Department Care Team (Latest Contact Info) Description 04/23/2024 8:00 AM EDT Office Visit [facility] [address] [place] [address] Marlyn Álvarez PA-C [address] [place] [address] Encounter for surveillance of contraceptive [...] mRNA, LNP-s, No Pre serve, 2-Dose Series ([employer]) 08/29/2021,10/03/2020,09/12/2020 Hepatitis B, 20+ yrs 04/27/2022,12/15/2021,11/10 MMR [...] (Lexapro) Excedrin Migraine 250-250-65 MG Oral Tablet (Mhzfehu-Xvbukdhedpwow-Tlowbatm) Extensive ROS Constitutional (f/c/wt/vision/hearing): Negative and wears [...] for surveillance of contraceptive pills (Primary) - PROCESS ENG PAP SCREEN Encounter for gynecological examination without abnormal finding - PROCESS ENG PAP SCREEN Screening for malignant neoplasm of cervix - PROCESS ENG PAP SCREEN PCOS (polycystic ovarian syndrome) - [...] Telemedicine Psychology Fernanda Lopez [address] [place] [phone] Debbie Pelletier, PhD [address] [facility] [place] [address] 4 12:40 PM EDT Telemedicine Nutrition & Weight Management, [facility] 132 [facility] [place] [address] oJsie Dennison PA-C 132 [facility] [place] [address] 4 1:30 PM EDT Telemedicine Nutrition & Weight Management, [facility] 132 [facility] [place] [address] [facility], Surgery Class Provider [facility] 132 [facility] [place] [address] 4 12:40 PM EDT Office Visit Podiatry [facility] [address] [facility] [place] [address] Rowena Mckee DPM [address] [place] [address] 4 11:30 AM EDT Telemedicine Nutrition and Weight Management, [place] [address] [place] [address] Rachael Cortez, MARYLOUN [address] [place] [address] 4 9:10 AM EDT Office Visit [facility] [address] [place] [address] Cinthya Hatfield, [address] [place] [facility] [place] [address] 4 8:00 AM EDT Telemedicine Nutrition and Weight Management [address] [place] [address] Dina Santamaria CRNP [address] [place] [address] 4 8:00 AM EDT Office Visit Dermatology [facility] 200 [facility] [place] [address] Armando Balderas MD 200 [facility] [place] [address] 4 1:08 PM EST Hospital Encounter OR GL, Operating Room, [facility] - 4th Floor 400 [facility] [place] [address] Macy Solomon MD [address] [place] [address] 4 1:08 PM EST - 4 1:47 PM EST Surgery OR [facility], Operating Room, [facility] - 4th Floor 400 [facility] [place] [address] Macy Solomon MD [address] [place] [address] ESOPHAGOGASTRODUODENOSCOPY (EGD), FLEXIBLE, TRANSORAL, DIAGNOSTIC Pending Results Name Type Priority Associated Diagnoses Date /Time PROCESS ENG PAP SCREEN Pathology Routine Encounter for surveillance of contraceptive pills Encounter for gynecological examination without abnormal finding Screening for malignant neoplasm of cervix 04/23/2024 8:47 AM EDT Scheduled Procedures Name Priority Associated [...] (HCC) documented in this encounter Care Teams Criminal Investigator Customs Relationship Specialty Start Date End Date Cinthya Hatfield DO [address] [place] [address] PCP - General Family Medicine 01/29/24 documented as of this encounter
--- OUTSIDE RECORDS SUMMARY | 2024-09-17 06:16 | External Medical Summary | Summary of Care ---
Author Name Unknown Organization [facility] Address [address] [place] [address] Phone [phone] Care Team Providers Care Netezza Architect Name Role Phone Rosamary annCinthya DO Primary Care Provider [phone] Reason for Visit * Reason Comments PAP Patient is here toda y for a PAP. Patient states no concerns. Encounter Details Date Type Department Care Team (Latest Contact Info) Description 04/23/2024 8:00 AM EDT Office Visit [facility] [address] [place] [address] Marlyn Álvraez PA-C [address] [place] [address] Encounter for surveillance of contraceptive [...] mRNA, LNP-s, No Pre serve, 2-Dose Series ([employer]) 08/29/2021,10/03/2020,09/12/2020 Hepatitis B, 20+ yrs 04/27/2022,12/15/2021,11/10 MMR [...] (Lexapro) Excedrin Migraine 250-250-65 MG Oral Tablet (Qoaijio-Eakgacfxdroox-Ecjgfzai) Extensive ROS Constitutional (f/c/wt/vision/hearing): Negative and wears [...] for surveillance of contraceptive pills (Primary) - AUTOMATIC OVEN OPERATOR PAP SCREEN Encounter for gynecological examination without abnormal finding - AUTOMATIC OVEN OPERATOR PAP SCREEN Screening for malignant neoplasm of cervix - AUTOMATIC OVEN OPERATOR PAP SCREEN PCOS (polycystic ovarian syndrome) [...] Telemedicine Psychology Fern[place] Lopez [address] [place] [phone] Debbie Pelletier, PhD [address] [facility] [place] [address] 4 12:40 PM EDT Telemedicine Nutrition & Weight Management, [facility] 132 [facility] [place] [place] [address] Josie Dennison PA-C 132 [facility] [place] [address] 4 1:30 PM EDT Telemedicine Nutrition & Weight Management, [facility] 132 [facility] [place] [address] [facility], Surgery Class Provider [facility] 132 [facility] [place] [address] 4 12:40 PM EDT Office Visit Podiatry [facility] [place] [address] Rowena Mckee DPM [address] [place] [address] 4 11:30 AM EDT Telemedicine Nutrition and Weight Management, [place] [address] [place] [address] Rachael Cortez, MARYLOUN [address] [place] [address] 4 9:10 AM EDT Office Visit [facility] [address] [place] [address] Cinthya Hatfield, [address] [place] [facility] [place] [address] 4 8:00 AM EDT Telemedicine Nutrition and Weight Management [address] [place] [address] Dina Santamaria CRNP [address] [place] [address] 4 8:00 AM EDT Office Visit Dermat[facility] 200 [facility] [place] [address] Armando Balderas MD 200 [facility] [place] [address] 4 1:08 PM EST Hospital Encounter OR GL, Operating Room, [facility] - 4th Floor 400 [facility] [place] [address] Macy Solomon MD [address] [place] [address] 4 1:08 PM EST - 4 1:47 PM EST Surgery OR [facility], Operating Room, [facility] - 4th Floor 400 [place] [address] Macy Solomon MD [address] [place] [address] ESOPHAGOGASTRODUODENOSCOPY (EGD), FLEXIBLE, TRANSORAL, DIAGNOSTIC Scheduled Orders Name Type Priority Associated Diagnoses Orde r Schedule AUTOMATIC OVEN OPERATOR PAP SCREEN Pathology Routine Encounter for surveillance [...] (HCC) documented in this encounter Care Teams Netezza Architect Relationship Specialty Start Date End Date Cinthya Hatfield DO [address] [place] [address] PCP - General Family Medicine 01/29/24 documented as of this encounter
--- OUTSIDE RECORDS SUMMARY | 2024-09-17 06:16 | External Medical Summary | Summary of Care ---
Author Name Unknown Organization [facility] Address [address] [place] [address] Phone [phone] Care Team Providers Care Associate Drafter Name Role Phone Rosamary annCinthya DO Primary Care Provider Reason for Visit * Reason Comments PAP Patient is here toda y for a PAP. Patient states no concerns. Encounter Details Date Type Department Care Team (Latest Contact Info) Description 04/23/2024 8:00 AM EDT Office Visit [facility] [address] [place] [address] Marlyn Álvarez PA-C [address] [place] [address] Encounter for surveillance of contraceptive [...] mRNA, LNP-s, No Pre serve, 2-Dose Series (iOculi) 08/29/2021,10/03/2020,09/12/2020 Hepatitis B, 20+ yrs 04/27/2022,12/15/2021,11/10 MMR [...] (Lexapro) Excedrin Migraine 250-250-65 MG Oral Tablet (Wtfkrgq-Cnkqwvccohdcf-Tbqqeifm) Extensive ROS Constitutional (f/c/wt/vision/hearing): Negative and wears [...] for surveillance of contraceptive pills (Primary) - ENVIRONMENTAL FIELD TECHNICIAN PAP SCREEN Encounter for gynecological examination without abnormal finding - ENVIRONMENTAL FIELD TECHNICIAN PAP SCREEN Screening for malignant neoplasm of cervix - ENVIRONMENTAL FIELD TECHNICIAN PAP SCREEN PCOS (polycystic ovarian syndrome) - [...] states no concerns. documented in this encounter Miscellaneous Notes * Result Encounter Note - Varsha Howe RN - 05/04/2024 3:56 PM EDT Reason for Call: Pap Contact: My Gedionteer Contact Type: Test Results Provider In-Basket: Yes Outcome: MyChart letter sent Face to face time spent with Patient (minutes): 0 Total Time including non face to face (minutes): 10 * Result Encounter Note - Varsha Howe RN - 05/04/2024 3:56 PM EDT Normal mammogram. MyChart letter sent documented in this encounter Plan of Treatment Upcoming Encounters Date Type Department Care Team (Late st Contact Info) Description 05/05/2024 12:40 PM EDT Telemedicine Nutrition & Weight Management, [facility] [address] [facility] [place] [address] Josie Dennison PA-C [address] [facility] [place] [address] 05/05/2024 1:30 PM EDT Telemedicine Nutrition & Weight Management, [facility] [address] [facility] [place] [address] [facility], Surgery Class Provider [facility] [address] [facility] [place] [address] 05/07/2024 12:40 PM EDT Office Visit Podiatry [facility] [address] [facility] [place] [address] Row[facility] Mckee DPM [address] [facility] [address] 06/04/2024 11:30 AM EDT Telemedicine Nutrition and Weight Management, [place] [address] [place] [address] Rachael Cortez, HEATHER [address] [place] [address] 06/25/2024 9:10 AM EDT Office Visit [facility] [address] [facility] [place] [id number] Cinthya Hatfield DO [address] [facility] [place] [address] 07/03/2024 8:00 AM EDT Telemedicine Nutrition and Weight Management [address] [place] [address] Dina Santamaria CRNP [address] [place] [address] 07/07/2024 8:00 AM EDT Office Visit Dermatology Damian [facility] [place] [address] [facility] [place], [place] [address] Armando Balderas MD [address] [facility] [place] [address] Health Maintenance Due Date Last Done Comments [...] finding Screening for malignant neoplasm of cervix ENVIRONMENTAL FIELD TECHNICIAN PAP SCREEN Routine 04/23/2024 8:47 AM EDT Encounter for surveillance of contraceptive pills Encounter for gynecological examination without abnormal finding Screening for malignant neoplasm of cervix documented in this encounter Results * HUMAN PAPILLOMA VIRUS, PROBE (04/23/2024 8:47 AM EDT) Human Papilloma Virus Result Negative Not Applicable 04/29/2024 2:32 PM EDT LAB[facility] Comment: No high/intermediate-risk Human Papillomavirus (HPV E6/E7 [...] developed, and its performance characteristics determined by [facility]. It has not been cleared or approved by the U.S. Food and Drug Administration (FDA). The FDA has determined that such clearance or approval is not necessary. This assay has been performed at [facility] [employer] [facility], [address] [place] [address]. [id number]. Pap Test Specimen from wound / Unknown 04/23/2024 8:47 AM EDT 04/24/2024 8:31 PM EDT Marlyn Álvarez PA-C LAB MICRO - GENER [place] [address] * ENVIRONMENTAL FIELD TECHNICIAN PAP SCREEN (04/23/2024 8:47 AM EDT) Final Diagnosis A. Cervix, SurePath Pap test: Adequacy: Satisfactory for evaluation; no transformation zone component identified. Interpretation: Negative for Intraepithelial lesion or malignancy ([place] [facility]). AUTOMATED REVIEW: Focal Point computerized screening device (quintile 4, review). 04/29/2024 2:32 PM EDT LABORATORY [facility] Performing Labs Supervisor Underwriting Clerks screening performed at [facility] ([facility] [address] [place] [address]. 04/29/2024 2:32 PM EDT LABORATORY [facility] Gross Description A. Cervix. SurePath vial received labeled with the patient's identification. 04/29/2024 2:32 PM EDT LABORATORY [facility] EDUCATIONAL NOTE: The Pap test (thin-layer cervical [...] and biopsy. 04/29/2024 2:32 PM EDT LABORATORY C Case Report Gynecologic Cytology Report Case: [id number] Authorizing Provider: Marlyn Álvarez PA-C Collected: 04/23/2024 08:47 AM Ordering [place] [facility] [place] Received: 04/23/2024 08:47 AM [place] First Screen: Mary Ortiz CT(ASCP) Specimen: SurePath Pap test, Cervix 04/29/2024 [...] Marlyn Álvarez PA-C LAB CYTOLOGY [facility] [address] [place] [address] documented in this encounter Visit Diagnoses Diagnosis Encounter for surveillance of contraceptive pills- Primary Surveillance of previously prescribed contraceptive pill Encounter for gynecological examination without abnormal finding Routine gynecological examination Screening for malignant neoplasm of cervix Screening for malignant neoplasm of the cervix PCOS (polycystic ovarian syndrome) Polycystic ovaries documented in this encounter Care Teams Associate Drafter Relationship Specialty Start Date End Date Cinthya Hatfield DO [address] [place] [address] PCP - General Family Medicine 01/29/24 documented as of this encounter
--- OUTSIDE RECORDS SUMMARY | 2024-09-17 06:16 | External Medical Summary ---
Author Name Unknown Address Unknown Organization : Laboratory Report Ordering Provider Test Date Status RADHA ST 04/02/2024 10:22:20 Final Observation Date Value Abnormality Reference (Units ) Status Vitamin A, level 04/02/2024 10:22:20 60 38- 98 (mcg/dL) Final Vitamin supplementation with in 24 hours prior to
blood draw may affect the accuracy of the results.
This test was developed and its analytical performance
characteristics have been determined by [facility] [place]. It has
not been cleared or approved by the U.S. Food and Drug
Administration. This assay has been validated pursuant
to the CLIA regulations and is used for clinical
purposes.

Test Performed at:
[facility]
[address] [facility]
[place] [address]
Elio Palacio M.D., Ph.D.,Director of Laboratories Performing Location
--- OUTSIDE RECORDS SUMMARY | 2024-09-17 06:16 | External Medical Summary | Summary of Care ---
Author Name Unknown Organization [facility] Address [address] [place] [address] Phone [phone] Care Team Providers Care Motor Vehicle Or Caravan Salesperson Name Role Phone GuillaumeCinthya murillo Jeremy OROZCO Primary Care Provider [phone] Reason for Visit * Reason Comments Bariatric Surg Psych Eval * - Authorized Specialty Diagnoses / Procedures Referred By Contac t Referred To Contact Referral ID Status Reason Start Date Expiration Date V isits Requested Visits Authorized [id number] Authorized 03/16/2024 03/15/2025 [id number] Encounter Details Date Type Department Care Team (Late st Contact Info) Description 04/24/2024 11:00 AM EDT Telemedicine Psychology Fernanda Lopez [address] [place] [address] Debbie Pelletier, PhD [address] [place] [address] Anxiety disorder, unspecified type* Allergies Active Allergy Reactions Criticality Noted Date Comments Amoxicillin 11/23/2005 Diphenhydramine Other (Please comment) High 11/29/19 18 Cephalexin High 04/23/2019 Itchy, hives, throat closing, chest tightness. documented as of this encounter (statuses as of 04/24/2024) Medications Medication Sig Dispensed Refills Start Date [...] the evening. 90 Tablet 2 04/23/2024 Active documented as of this encounter (statuses as of 04/24/2024) Active Problems Problem Noted Date Diagnosed Date [...] as of this encounter (statuses as of 04/24/2024) Resolved Problems Problem Noted Date Diagnosed Date [...] as of this encounter (statuses as of 04/24/2024) Immunizations Name Administration Dates Next Due COVID-19 mRNA, LNP-s, No Pre serve, 2-Dose Series ([facility]) 08/29/2021,10/03/2020,09/12/2020 Hepatitis B, 20+ yrs 04/27/2022,12/15/2021,11/10 MMR [...] 04/11/2022 Hunger Vital Sign Answer Date Recorded Within [...] this encounter Patient Instructions * Patient Instructions* Debbie Pelletier, PhD - 04/24/2024 12:02 PM EDT Dina has a Green light from Behavioral Medicine. There are recommendations noted below that should be implemented in order to enhance the patient's success. The follow up plan is as follows: Patient will receive follow-up with their nutrition weight management providers who will assess for behavioral changes as identified in recommendation section listed below Continue progress on weight loss goal Attend at least one additional support group Continue behavioral changes, especially: eating and drinking by 30 minutes. Don't bring a drink to the table, decrease amount over time (e.g., glass, then glass, then glass, etc), avoid really dry foods/try to eat moist foods, set a timer (can taper up gradually), leave notes for yourself (on the table, refrigerator, and cabinet doors tend to be good places), minimize salty foods, chew food more to produce more saliva If you have any questions, you can contact Debbie Hammond, PhD at . documented in this encounter Progress Notes * Debbie Pelletier, PhD - 04/24/2024 11:00 AM EDT BEHAVIORAL MEDICINE ASSESSMENT FOR BARIATRIC SURGERY DEPARTMENT OF PSYCHIATRY & BEHAVIORAL MEDICINE [address], [place] [id number] Psychology [facility] [address] [facility] [phone] 04/24/2024 8:04 AM Patient location: HOME. I was not in a hospital or clinic location. After connecting through [employer], patient was verified with two unique identifiers. Patient (or authorized legal school admissions representative) was then informed that this was a Telemedicine visit and being conducted confidentially over secure lines. Methods to assure confidentiality were taken. Patient acknowledged consent and understanding of privacy and security of the Telemedicine visit. The patient agreed to participate. Provider determined this patient has capacity to receive and benefit from telehealth services. Timing assessment: This is the initial onset of the assessed illness: psychological evaluation and preparation for potential bariatric surgery. Face to Face Start Time: 11:00 AM Face to Face Stop Time: 11:57 AM Referral Source: Nutrition and Weight Management Reason for Referral: Dina Acosta ([id number]) is a 33 year old female who comes on referral from Nutrition and Weight Management for psychological evaluation and preparation for potential bariatric surgery. Dina's primary care provider is Cinthya Hatfield DO. A review was conducted of the medical record. Recommendations Based on Psychological Evaluation: GREEN PSYCHOLOGICAL CONDITION WITH RECOMMENDED BEHAVIORAL CHANGES- It is my professional opinion that there are no psychological contraindications to Dina proceeding with the bariatric surgery process. However, there are recommendations noted below that should be implemented in order to enhance the patient's success. Weight Management Team members can monitor the patient's behavioral progress.IF GREEN, need to clarify: ATTENDANCE: WITHOUT known history of adherence/attendance issues Summary: The decision noted above is based on the following: Dina has made significant weight loss attempts in the past, but without lasting success. Dina experienced mild mental health problems in the past year. Dina experienced mild mental health problems earlier in life. Dina is not engaging in problematic eating behaviors. Dina is knowledgeable about the surgery and related risks. Dina is knowledgeable about the 4-step diet following surgery. Dina's motivation for surgery is: Good Dina's social support is: Good Dina is aware of expected surgery weight loss with surgery. Dina is aware of the habit changes that will need to occur and is actively engaged in changing those now. Dina is making progress towards weight goal and there is not a medical indication for weight gain. Behavioral Recommendations: Dina has a Green light from Behavioral Medicine. There are recommendations noted below that should be implemented in order to enhance the patient's success. The follow up plan is as follows: Patient will receive follow-up with their nutrition weight management providers who will assess for behavioral changes as identified in recommendation section listed below Continue progress on weight loss goal Attend at least one additional support group Continue behavioral changes, especially: eating and drinking by 30 minutes. Don't bring a drink to the table, decrease amount over time (e.g., glass, then glass, then glass, etc), avoid really dry foods/try to eat moist foods, set a timer (can taper up gradually), leave notes for yourself (on the table, refrigerator, and cabinet doors tend to be good places), minimize salty foods, chew food more to produce more saliva If you have any questions, you can contact Debbie Hammond, PhD at . Risk Assessment: Completed, no acute safety concerns. [place] Suicide Severity Rating Scale Results 04/24/2024 11:44 [place] SUICIDE SEVERITY RATING SCALE (C-SSRS) Have you wished you were or wished you could go to sleep and not wake up? (In the Past Month or Since Last Visit) No Have you had any actual thoughts of killing yourself? (In the Past Month or Since Last Visit) No Have you been thinking about how you might do this? (In the Past Month or Since Last Visit) No Have you had thoughts and had some intention of acting on them? (In the Past Month or Since Last Visit) No Have you started to work out or worked out the details of how to kill yourself? Do you intend to carry out this plan? (In the Past Month or Since Last Visit) No Have you ever done anything, started to do anything, or prepared to do anything to end your life? (Lifetime) No Was this within the past 3 months? No Level of Risk No Risk Identified Protective Factors Social Support/Family;Future Plans;Supervision and monitoring available;Hopeful attitude and or beliefs;Access to appropriate services;Willing to participate in less restrictive means of help;Cares about job/school;Identifies reasons for living;Help-Seeking Behaviors Risk Factors Anxiety;History of Depression Bariatric Surgery: [facility] Checklist Date: 04/02/2024 Dina prefers Sleeve Gastrectomy (Gastric Sleeve). Weight History: Current Weight: as of 04/24/2024 is 390 lbs Wt Readings from Last 5 Encounters: 04/23/24 (!) 178.6 kg (393 lb 12.8 oz) 04/02/24 (!) 176.8 kg (389 lb 12.8 oz) 01/29/24 (!) 184.4 kg (406 lb 8 oz) 01/01/24 (!) 189.5 kg (417 lb 11.2 oz) 12/25/23 (!) 190.8 kg (420 lb 9.6 oz) Weight Changes: weight decreased by 20 lbs Pre-surgery weight goal: 369 lbs Progress in meeting pre-surgery weight goal: good Age when first became concerned about weight: Childhood Since then weight has: has gradually increased over the years Current weight reduction strategies and methods: making healthy food choices (e.g., limiting sugars) and prescribed Ozempic Problematic Eating Behaviors: History of binge eating episodes: None. If h/o objective binge eating, when was the last binge? not applicable History of self-induced vomiting or other compensatory strategies (i.e., laxatives, diuretics): None. If h/o compensatory behaviors, when was the last episode? not applicable History of caloric restriction/meal skipping: None. If h/o restriction, when was the last episode? not applicable History of waking at night to eat/late night eating right before bed: None. History of waking to evidence of having eaten but with no recall: None. If h/o night eating, when was the last episode? not applicable History of grazing (picking on food between planned meals and snacks): None. If h/o grazing, when was the episode? not applicable History of emotional eating: Mild (1-3 episodes per week). If h/o emotional eating, when was the last episode? greater than 1 year (after of grandfatherin 2021) High Risk Eating Situations Other high-risk times and places where Dina is likely to engage in potentially harmful eating behaviors include: vacations or trips way from home Dina is aware of eating patterns and adaptive coping strategies: making social support aware of eating goals and lifestyle changes, choosing healthier options Motivation for and Knowledge of Surgery: Length of time considering surgery: 1 year. Motivation for surgery: - To reduce health risks in the future - Be able to do things she enjoys (e.g., ride amusement park rides) Strength of motivation for surgery: good Dina is 90% convinced to have this surgery (100% = sign me up tomorrow). Mixed feelings/concerns: Endorsed mild concerns about complications after surgery. Notes mom had surgery 15 years ago and experienced some complications. Surgery concerns: mild Knowledge of the procedure: patient has attended 1 support groups, has read the book, has researched information from the Internet, and spoken with patients who have had the surgery Aware of surgical risks, including: <1% mortality, 20% complication risks after surgery (e.g., leakages, infections, blood clots), 20% emotional/ups and downs, and that skin may be loose and insurance may not cover plastic surgery. Realistic Post-surgical Goals and Expectations: Yovany stated weight loss goal after surgery: Denies specific weight loss goal. This goal is realistic based on information provided by the Nutrition/Surgery team and the Get 2 Goal nga. Understanding of Eating Changes After Surgery: Aware of the four stages of eating following surgery: Sugar-free clear liquids right after surgery (typically for less than 24 hours) Protein shakes (fat-free swedish yogurt, nonfat yogurt, non-fat or 1% milk, tomato soup) - 2 weeks before and after surgery 2b. Can add cottage cheese, eggs, ricotta cheese (low fat) Add soft protein (fish, turkey, chicken, tofu, veggie burger) but no fruits, vegetables, or starches ~8 weeks after surgery Introduction of regular foods, including fruits, vegetables, and starches ~2 months after surgery Dina has concerns or anticipates problems with the stages of eating: No Aware of the need to prioritize protein. Aware of possibility that food tastes may change. Dina's knowledge of eating requirements after surgery: good Post-Surgery Eating Habit Changes and Readiness: Aware of the following eating habit changes and is practicing them to the following extent already (50% = half meals/week; 100% = every meal/week): Eating slowly, chewing food to applesauce consistency: Aware of the need and practicing about 90% of the time and has been practicing at this rate for about 3 months. eating and drinking by 30 minutes before and after meals and snacks: Aware of the need and practicing about 50% of the time and has been practicing at this rate for about 3 months. Identifies work as barrier because she cannot have water on floor with her. Eating smaller quantities: Aware of the need and practicing about 80% of the time and has been practicing at this rate for about 3 months. Drinking 64-96 oz of water daily (64 oz goal unless pt has fluid restriction due to a medical condition). Has difficulty with sipping drinks slowly: sometimes - more challenging at work Has difficulty with NOT using straws to drink: no Other daily beverages (excluding protein shakes): denies Eating regular schedule with 3 meals and 1-3 snacks per day (sleeve requires only 3 meals, no snacks): Aware of the need and practicing 7 days of the week and has been practicing at this rate for about 3 months. Schedule of current meals and snacks: Generally consistent meal times with breakfast within 1 hour of waking, two additional meals which vary based on work schedule, and 1-2 snacks. Regular exercise: Aware of the need to exercise regularly and is not engaged in structured exercise, but active during work. On feet during work. Current implementation of eating habit/behavioral changes overall: good Most challenging behavioral changes for the patient are: - eating and drinking due to work (unable to have drink with her) Adherence and Attendance: Number of no-show appointments in the past 6 months: 0 Number of cancelled appointments in the past 6 months (excluding provider cancellations or those cancelled d/t COVID): 0 Reason for cancellations/no shows: N/A Take all medications as prescribed: Yes - takes as prescribed Current obstructive sleep apnea diagnosis? No If yes, nights per week wearing CPAP/BiPAP: N/A Potential work schedule conflict? No Adequate time to recover from surgery before returning to work? Yes - will use FMLA or PTO Current stressors or anticipated stressful events that might interfere with Dina focusing on necessary habit changes before or after surgery include: none Severity of stressor(s): none Potential barriers to treatment compliance (attending appointments, taking vitamins and supplements, accessing healthy food and protein shakes): none identified Current Social Support Network: Primary social support comes from: Grandmother, cousin. Identified post-surgery caregiver(s): Grandmother. Quality of EMOTIONAL support (e.g., help maintaining diet/exercise): Good. Quality of TASK support (e.g., help with post-surgical care): Good. Support network reactions to bariatric surgery: Describes family as supportive. Notes grandmother is helpful with eating habits, but sometimes makes statements that are unhelpful. Has been able to discuss with grandmother how to best support her. Dina's social support network is: good Psychiatry Review of Systems: PSYCHIATRY REVIEW OF SYSTEMS: All other systems negative Pertinent symptoms noted in HPI - Prior psychiatric diagnosis of ROSANNE. Reports anxiety is well managed with medication. - H/o depressed mood and grief following grandfather's in 2021. - Patient's last PHQ-9 score (Adult) - 0 and Patient's last ROSANNE-7 score - Total:4 Pain screening: Is patient experiencing any pain related to today's visit? No Nutritional Screening: Documented in assessment of this note Past Psychiatric History: Outpatient Treatment: Current prescribed Lexapro for anxiety. Managed by PCP. Finds to be effective. Denies h/o therapy. Inpatient Treatment: Denies Self injury and suicide attempts: Denies Prior psychotropic medical trials: None. History of trauma, abuse, exploitation or trafficking: Describes grandfather's as traumatic ( in her presence) Substance Abuse History: Alcohol: Rare, 1-2 times per year. Tobacco/nicotine: Denies current and historical. Cannabis/marijuana: Denies current and historical. Other substances: Denies current and historical. Caffeine: Actively reducing. Coffee once monthly. Family Psychiatric History: Psychiatric diagnoses: None Attempted suicides/ by suicide:None Drug and alcohol abuse: None Personal, Family and Social History: Living situation: Lives with grandmother Education/Employment: HS graduate. 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 History: Patient has never served in any branch of the Legal History: None Intellectual Disability Diagnosis: No Activities of Daily Living: Good Additional community service involvement: None Leisure and recreational interest: Reading, watch movies, spend time with family and friends Anabaptist/Spiritual Orientation: Scientologist Mental Status Evaluation: Appearance: Well groomed, casually dressed, appearing stated age Abnormal Movement: No abnormal movements noted Behavior: Calm, cooperative and appropriate Speech and Language: Normal in rate, rhythm, volume and tone Mood: Euthymic Affect: Appropriate to content and mood-congruent Thought Process: Logical, linear and goal directed Thought Content: No abnormal thought content Hallucinations: No perceptual disturbances Suicidality: No suicidal ideations, intent, method or plan or passive wish Homicidality: No homicidal ideations, intent, plan or target Orientation: Oriented to self, time, place and circumstances Attention: Intact Recent and Remote memory:Intact Insight: Good Judgement: Good Fund of Knowledge: Good Assessment/Formulation: Dina Acosta is a 33 year old female seen today by behavioral medicine FORBARIATRIC SURGERY and recommendations associated with today's evaluation can be found above. Diagnosis: ICD-10-CM 1. Anxiety disorder, unspecified type F41.9 Plan: Low risk crisis plan was developed on 04/24/24. As this is a one time evaluation a treatment plan will not be created. However, should patient engage in ongoing treatment, a plan will be created withthat provider at that time. Type of Service: Psychological Evaluation Crisis Planning: What I can do if I ever experience a crisis (much worse symptoms, severe distress or thoughts of self-harm): Call my provider or dial 911, Talking to loved one or friend or trusted person, Distraction on computer/TV, and reading People I can call in the event of a crisis: Grandmother, cousin. Additional resources I can utilize if the previous steps are ineffective (e.g: ED, hotlines): Suicide and Crisis Lifeline - 988, Clinic number: 013-625-0308, and [facility] Hotlines for Help Patients Strengths and Facilitating Factors to care: Recognizes need for change, Good support system, Access to housing, Steady employment, Financial stability, Knowledge of medications, Cooperative,Good physical health, Able to care for own personal hygiene, and Abstain from using alcohol and/or drugs The assessment and plan for Dina Acosta are detailed at the beginning of this report. Treatment options and recommendations/interventions reviewed. Patient and/or caregiver verbalize understanding and agrees to plan with explanation of risks/benefits, aware of how to contact clinic with questions. documented in this encounter Plan of Treatment Upcoming Encounters Date Type Department Care Team (Latest Contact Info) Description 4 12:40 PM EDT Telemedicine Nutrition & Weight Management, [facility] [address] [address] Josie Dennison PA-C [address] [address] 4 1:30 PM EDT Telemedicine Nutrition & Weight Management, [facility] [address] [address] [facility], Surgery Class Provider [facility] [address] [address] 4 12:40 PM EDT Office Visit Podiatry [facility] [address] [address] Rowena Mckee DPM [address] [place] [place] [address] 4 11:30 AM EDT Telemedicine Nutrition and Weight Management, [place] [address] [place] [address] Rachael Cortez, RDN [address] [place] [address] 4 9:10 AM EDT Office Visit [facility] [address] [place] [id number] Cinthya Hatfield DO [address] [place] [address] 4 8:00 AM EDT Telemedicine Nutrition and Weight Management [address] [facility] [place] [address] Dina Santamaria CRNP [address] [place] [address] 4 8:00 AM EDT Office Visit Dermatology [facility] [place] [address] [facility] [place] [address] Armando Balderas MD [address] [place] [address] 4 1:08 PM EST Hospital Encounter OR GL, Operating Room, [facility] - 4th Floor [address] [place] [address] Macy Solomon MD [address] [place] [address] 4 1:08 PM EST - 4 1:47 PM EST Surgery OR GL, Operating Room, [facility] - 4th Floor [address] [facility] [place] [address] Macy Solomon MD [address] [place] [address] ESOPHAGOGASTRODUODENOSCOPY (EGD), FLEXIBLE, TRANSORAL, DIAGNOSTIC Scheduled Procedures [...] 05/28/2024 05/28/2014 Depression Screening 04/24/2025 04/24/2024, 04/23/20 Hepatitis B Vaccine Completed 04/27/2022, 12/15/2021, 11/10/2021 [...] as of this encounter Visit Diagnoses Diagnosis Anxiety disorder, unspecified type- Primary Morbid obesity due to excess calories (HCC) documented in this encounter Care Teams Motor Vehicle Or Caravan Salesperson Relationship Specialty Start Date End Date Cinthya Hatfield DO [address] [place] [address] PCP - General Family Medicine 01/29/24 documented as of this encounter
--- OUTSIDE RECORDS SUMMARY | 2024-09-17 06:16 | External Medical Summary | Summary of Care ---
Author Name Unknown Organization [facility] Address [address] [place] [address] Phone [phone] Care Team Providers Care Manhole Builder Name Role Phone Cinthya Hatfield DO Primary Care Provider Encounter Details Date Type Department Care Team (Late st Contact Info) Description 04/29/2024 Population Health External Data Unspecified Department Allergies Active Allergy Reactions Criticality Noted Date Comments Amoxicillin 11/23/2005 Diphenhydramine Other (Please comment) High 11/29/19 18 Cephalexin High 04/23/2019 Itchy, hives, throat closing, chest tightness. documented as of this encounter (statuses as of 04/29/2024) Medications Medication Sig Dispensed Refills Start Date [...] as of this encounter (statuses as of 04/29/2024) Active Problems Problem Noted Date Diagnosed Date [...] as of this encounter (statuses as of 04/29/2024) Resolved Problems Problem Noted Date Diagnosed Date [...] as of this encounter (statuses as of 04/29/2024) Immunizations Name Administration Dates Next Due COVID-19 [...] No 04/24/2024 Does the household have a [facility] source of income? (Household - for [...] PM EDT Telemedicine Nutrition & Weight Management, [facility] [address] [address] Josie Dennison PA-C [address] [place] [address] 4 1:30 PM EDT Telemedicine Nutrition & Weight Management, [facility] [address] [address] [facility], Surgery Class Provider Wyatt [address] [place] [address] 4 12:40 PM EDT Office Visit Podiatry [facility] [address] [place] [address] Rowena Mckee DPM [address] [place] [address] 4 11:30 AM EDT Telemedicine Nutrition and Weight Management, [place] [address] [place] [address] Rachael Cortez, HEATHER [address] [place] [address] 4 9:10 AM EDT Office Visit [facility] [address] [place] [phone] Cinthya Hatfield, [address] [place] [address] 4 8:00 AM EDT Telemedicine Nutrition and Weight Management [address] [place] [address] Dina Santamaria CRNP [address] [place] [address] 4 8:00 AM EDT Office Visit Dermatology Damian [facility] [place] [address] [place] [address] Armando Balderas MD [address] [place] [address] 4 1:08 PM EST Hospital Encounter OR [facility], Operating Room, [facility] - 4th Floor [address] [place] [address] [address] [place] [address] Macy Solomon MD [address] [place] [address] 4 1:08 PM EST - 4 1:47 PM EST Surgery OR [facility], Operating Room, [facility] - 4th Floor [address] [place] [address] Macy Solomon MD [address] [place] [address] ESOPHAGOGASTRODUODENOSCOPY (EGD), FLEXIBLE, TRANSORAL, DIAGNOSTIC Scheduled Procedures [...] filedocumented as of this encounter Care Teams Manhole Builder Relationship Specialty Start Date End Date Cinthya Hatfield DO [address] [place] [address] PCP - General Family Medicine 01/29/24 documented as of this encounter
--- OUTSIDE RECORDS SUMMARY | 2024-09-17 06:16 | External Medical Summary ---
Author Name Unknown Address Unknown Organization [id number]:LAB[facility]ATORY [facility] [place] - [address] [place] [address] Laboratory Report Ordering Provider Test Date Status RADHA ST 04/02/2024 10:22:20 Final Observation Date Value Abnormality Reference (Units ) Status Vitamin B12 04/02/2024 10:22:20 226 Below low normal 2 32-1245 (pg/mL) Final Performing Location LABORATORY [facility] [place] - [address] [place] [address]
--- OUTSIDE RECORDS SUMMARY | 2024-09-17 06:17 | External Medical Summary ---
Author Name Unknown Address Unknown Organization [id number]:[facility] [place] [address] [place] [address] Laboratory Report Ordering Provider Test Date Status RADHA ST 04/02/2024 10:22:20 Final Deficient: <20 ng/mL
Ins ufficient: 20-29 ng/mL
Recommended/Optimum:30-50 ng/mL

Vitamin D intoxication is rare. If suspicious of Vitamin D toxicity, evaluation of serum Calcium and PTH is recommended. Observation Date Value Abnormality Reference (Units ) Status 25-OH Vitamin D total 04/02/2024 10:22:20 23 >19 (ng/mL) Final Performing Location [facility] [address] [place] [address]
--- OUTSIDE RECORDS SUMMARY | 2024-09-17 06:17 | External Medical Summary ---
Author Name Unknown Address Unknown Organization [id number]:LAB[facility]ATORY [facility] [place] - [address] [place] [address] Laboratory Report Ordering Provider Test Date Status RADHA ST 04/02/2024 10:22:20 Final Observation Date Value Abnormality Reference (Units ) Status HbA1C 04/02/2024 10:22:20 5.0 4.0-5.6 (% ) Final The use of HbA1c to monitor glycemic status is based on normal hemoglobin and HbA composition. This test should not be used in patients with abnormal hemoglobin that affects the half life of the red blood cell or the in vivo glycation rates. Glucose, estimated average 04/02/2024 10:22:20 97 <126 (mg/dL) Final Performing Location LABORATORY [facility] [place] - [address] [facility] [address]
--- OUTSIDE RECORDS SUMMARY | 2024-09-17 06:17 | External Medical Summary ---
Author Name Unknown Address Unknown Organization : Laboratory Report Ordering Provider Test Date Status RADHA ST 04/02/2024 10:22:20 Final Observation Date Value Abnormality Reference (Units ) Status Thiamine [Moles/volume] in Blood 04/02/2024 10:22:20 151 78-185 (nmol/L) Final Vitamin supplementation with in 24 hours prior to
blood draw may affect the accuracy of the results.
This test was developed and its analytical performance
characteristics have been determined by [facility] [place]. It has
not been cleared or approved by the U.S. Food and Drug
Administration. This assay has been validated pursuant
to the CLIA regulations and is used for clinical
purposes.

Test Performed at:
[facility]
[address]
[place] [address]
Elio Palacio M.D., Ph.D.,Director of Laboratories Performing Location
--- OUTSIDE RECORDS SUMMARY | 2024-09-17 06:17 | External Medical Summary ---
Author Name Unknown Address Unknown Organization K01:[facility] [place] [address] [place] [address] Laboratory Report Ordering Provider Test Date Status RADHA ST 04/02/2024 10:22:20 Final Observation Date Value Abnormality Reference (Units ) Status Insulin level 04/02/2024 10:22:20 21 3-25 ( uU/mL) Final The above reference interval is based on fasting status. Performing Location [facility] [place] [address] [place] [address]
--- OUTSIDE RECORDS SUMMARY | 2024-09-17 06:17 | External Medical Summary ---
Author Name Unknown Address Unknown Organization K01:[place] [place] [address] [place] [address] Laboratory Report Ordering Provider Test Date Status RADHA ST 04/02/2024 10:22:20 Final Observation Date Value Abnormality Reference (Units ) Status Folic Acid 04/02/2024 10:22:20 15.4 >4.5 (ng/ mL) Final Performing Location LABORATORY [facility] - [address] [place] [address]
--- OUTSIDE RECORDS SUMMARY | 2024-09-17 06:17 | External Medical Summary ---
Author Name Unknown Address Unknown Organization : Laboratory Report Ordering Provider Test Date Status RADHA ST 04/02/2024 10:22:20 Final Observation Date Value Abnormality Reference (Units ) Status Copper 04/02/2024 10:22:20 248 Above high normal 70 -175 (mcg/dL) Final THIS RESULT HAS BEEN VERIFIE D BY REPEAT ANALYSIS.
This test was developed and its analytical performance
characteristics have been determined by [employer] [facility] [place], [place]. It has
not been cleared or approved by the U.S. Food and Drug
Administration. This assay has been validated pursuant
to the CLIA regulations and is used for clinical
purposes.

Test Performed at:
[facility]
[address]
[place] [address]
Elio Palacio M.D., Ph.D.,Director of Laboratories Performing Location
--- OUTSIDE RECORDS SUMMARY | 2024-09-17 06:17 | External Medical Summary ---
Author Name Unknown Address Unknown Organization K01:[facility] [place] [address] [place] [address] Laboratory Report Ordering Provider Test Date Status RADHA ST 04/02/2024 10:22:20 Final Observation Date Value Abnormality Reference (Units ) Status Triglyceride 04/02/2024 10:22:20 196 Above high normal <=174 (mg/dL) Final Triglyceride Reference Range s (mg/dL):
<150 Acceptable
150-174 Borderline high
175-499 High
>=500 Very high Cholesterol 04/02/2024 10:22:20 206 Above high normal <200 (mg/dL) Final Total Cholesterol Reference Ranges (mg/dL):
<200 Desirable
200-239 Borderline high
>=240 High HDL 04/02/2024 10:22:20 47 Below low normal >49 (mg/dL) Final HDL Cholesterol Reference Ra nges (mg/dL):
>=60 High (Desirable)
<50 Low (Undesirable) For Females
<40 Low (Undesirable) For Males NON-HDL CHOLESTEROL 04/02/2024 10:22:20 159 <=159 (mg/dL) Final Non-HDL Cholesterol Referenc e Range (mg/dL):
<100 Target level for high risk ASCVD patient
<130 Optimal for general population
130-159 Near optimal for general population
160-189 Borderline High
190-219 High
>=220 Very High LDL, (calculated) 04/02/2024 10:22:20 120 <= 129 (mg/dL) Final LDL Cholesterol Reference Ra nges (mg/dL):
<70 Target level for high risk ASCVD patient
<100 Optimal for general population
100-129 Near optimal for general population
130-159 Borderline high
160-189 High
>=190 Very high Performing Location [facility] [place] [address] [facility] [address]
--- OUTSIDE RECORDS SUMMARY | 2024-09-17 06:17 | External Medical Summary ---
Author Name Unknown Address Unknown Organization [id number]:LABORATORY [facility] - [address] [place] [address] Laboratory Report Ordering Provider Test Date Status RADHA ST 04/02/2024 10:22:20 Final Observation Date Value Abnormality Reference (Units ) Status BUN 04/02/2024 10:22:20 11 6-20 (mg/dL) Final Creatinine 04/02/2024 10:22:20 0.8 0.5-1.0 (mg/dL) Final Glomerular filtration rate/1.73 sq M.predicted [Volume Rate/Area] in Serum, Plasma or Blood by Creatinine-based formula (CKD-EPI) 04/02/2024 10:22:20 >90 >=60 (mL/min) Final eGFR is calculated based on the CKD-EPI 2020 equation. Sodium 04/02/2024 10:22:20 140 135-146 (m mol/L) Final Potassium 04/02/2024 10:22:20 4.3 3.5-5.1 (m mol/L) Final Cl 04/02/2024 10:22:20 106 98-107 (mm ol/L) Final CO2 04/02/2024 10:22:20 24 22-32 (mmo l/L) Final Anion gap 04/02/2024 10:22:20 10 7-15 (mmol /L) Final Glucose 04/02/2024 10:22:20 94 70-120 (mg /dL) Final Albumin 04/02/2024 10:22:20 3.7 Below low normal 3.8 -5.0 (g/dL) Final AST (Aspartate aminotransferase) 04/02/2024 10:22:20 13 10-35 (U/L) Fin al Alk Phos 04/02/2024 10:22:20 61 35-130 (U/ L) Final Bilirubin, Total 04/02/2024 10:22:20 0.4 <=1 .2 (mg/dL) Final Calcium 04/02/2024 10:22:20 9.1 8.4-10.2 ( mg/dL) Final Protein 04/02/2024 10:22:20 5.9 Below low normal 6.0 -8.3 (g/dL) Final ALT (Alanine aminotransferase) 04/02/2024 10:22:20 22 10-35 (U/L) Kip william Performing Location LABORATORY [place] [facility] - [address] [facility] [address]
--- OUTSIDE RECORDS SUMMARY | 2024-09-17 06:17 | External Medical Summary ---
Author Name Unknown Address Unknown Organization K01:LABORATORY [facility] - [address] [place] [address] Laboratory Report Ordering Provider Test Date Status RADHA ST 04/02/2024 10:22:20 Final Observation Date Value Abnormality Reference (Units ) Status Ferritin 04/02/2024 10:22:20 24 13-150 (ng /mL) Final Performing Location LABORATORY [facility] - [address] [place] [address]
--- OUTSIDE RECORDS SUMMARY | 2024-09-17 06:17 | External Medical Summary ---
Author Name Unknown Address Unknown Organization : Laboratory Report Ordering Provider Test Date Status RADHA ST 04/02/2024 10:22:20 Final Observation Date Value Abnormality Reference (Units ) Status Zinc, level 04/02/2024 10:22:20 71 60-130 ( mcg/dL) Final This test was developed and its analytical performance
characteristics have been determined by [facility]
[employer] [place]. It has
not been cleared or approved by the U.S. Food and Drug
Administration. This assay has been validated pursuant
to the CLIA regulations and is used for clinical
purposes.

Test Performed at:
[facility] [place]
[address] [facility]
[place] [address]
Elio Palacio M.D., Ph.D.,Director of Laboratories Performing Location
[2024-09-17 07:03] LABS: Basophils # (auto) 0.04 K/uL (0.00-0.20); Basophils % (auto) 0.6 %; Eosinophils # (auto) 0.22 K/uL (0.00-0.50); Eosinophils % (auto) 3.4 %; Hematocrit (blood only) 43.4 % (37.0-47.0); Hemoglobin 15.3 g/dl (12.0-16.0); Immature Granulocytes # (auto) 0.01 K/uL (0.01-0.20); Immature Granulocytes % (auto) 0.2 %; Lymphocytes # (auto) 2.79 K/uL (1.20-3.40); Lymphocytes % (auto) 43.7 %; Mean Corpuscular Hemoglobin 28.7 pg (25.0-34.0); Mean Corpuscular Hgb Conc 35.3 g/dL (32.0-36.0); Mean Corpuscular Volume 81.4 fL (80.0-100.0); Mean Platelet Volume 13.3 fL (9.4-12.4); Monocytes # (auto) 0.49 K/uL (0.11-0.59); Monocytes % (auto) 7.7 %; Neutrophils # (auto) 2.84 K/uL (1.40-6.50); Neutrophils % (auto) 44.4 %; Platelet Count 240 K/uL (130-400); RDW Coefficient of Variation 15.2 % (11.5-14.5); RDW Standard Deviation 44.3 fL (36.4-46.3); Red Blood Count 5.33 M/uL (4.20-5.40); White Blood Count 6.39 K/ul (4.8-10.8)
--- NOTE | 2024-09-17 07:07 | Emergency Department Note ---
History of Present Illness General Chief complaint: Back Injury/Pain Stated complaint: LOW BACK PAIN,NAUSEA Time Seen by Provider: 09/17/24 06:54 History of Present Illness Maximum Pain Intensity: 9 This is a 34-year-old female that presents to the emergency department via private vehicle with complaints of "left flank pain, left lower quadrant abdominal pain". This began around 4 AM and woke the patient from sleep. No history of kidney stones. She has a history of bypass in July and 2 days following the surgery did have to present back to [facility] noting ileus. Otherwise has been doing well. No fever. Home Medications Medication Instructions Recorded Confirmed Type topiramate 25 mg tablet (Topamax) 25 mg PO BID 08/22/18 09/17/24 History escitalopram oxalate 10 mg tablet 10 mg PO DAILY 02/14/24 09/17/24 History multivitamin 1 tab PO BID 09/17/24 09/17/24 History omeprazole 20 mg capsule,delayed 20 mg PO DAILY 09/17/24 09/17/24 History release vitamin B complex 1 cap PO DAILY 09/17/24 09/17/24 History Allergies Allergy/AdvReac Type Severity Reaction Status Date / Time cephalexin [From Keflex] Allergy Severe difficulty Verified 02/14/24 10:08 breathing/itchy amoxicillin Allergy Unknown HAPPENED Verified 02/14/24 10:08 AN INFANT diphenhydramine AdvReac Intermediate LEG PAIN Verified 02/14/24 10:08 Past Med/Surg History Problem List (Updated 09/17/24 @ 16:23 by Ezekiel Powell PA-C) Acute left flank pain (Acute) Hypokalemia (Acute) Ureteropelvic junction calculus (Acute) Encounter for pre-operative examination Insulin resistance (Chronic) on metformin GERD (gastroesophageal reflux disease) (Chronic) Anxiety (Chronic) PCOS (polycystic ovarian syndrome) (Chronic) Obesity (Chronic) Migraine (Chronic) Seizure disorder (Chronic) last 2010--grand mal--reason for topamax Medical History (Updated 09/17/24 @ 16:23 by Ezekiel Powell PA-C) Morbid obesity with BMI of 50.0-59.9, adult Surgical History History of esophagogastroduodenoscopy (EGD) Family History Sister Family history of diabetes mellitus Aunt Family history of diabetes mellitus Uncle Family history of diabetes mellitus Grandmother (Maternal) Family hx colonic polyps Other No family history of adverse response to anesthesia Social History Smoking Status: Never smoker Second Hand Exposure: Yes (family all smokes); Do You Dip or Chew Tobacco: No; Hx Alcohol Use: No Hx Substance Use: No Preferred Language: Bruneian Communication Ability: Effective [employer] Required: No Beliefs That Will Affect Care: None Current Living Situation: Family Current Living Situation Comment: lives with grandparents Other Information That Helps Us Care for You: No Feels Safe at Home: Yes Safety Concerns: Feels Safe At This Time Assistive Devices: Glasses Review of Systems A total of 10 systems reviewed and were otherwise negative Physical Exam Vital Signs Vital Signs - 24 hr 09/17/24 06:34 09/17/24 08:04 09/17/24 09:54 Pulse Rate 54 L Pulse Rate [Apical] 53 L 48 L Respiratory Rate 20 20 Respiratory Depth Normal Blood Pressure [Right Arm] 127/69 116/81 Blood Pressure Mean [Right Arm] 88 92 Pulse Oximetry 95 97 Oxygen Delivery Method Room Air Room Air VITAL SIGNS - Vital signs and nursing notes were reviewed. Stable and afebrile. GENERAL -34-year-old female appearing her stated age who is in no acute distress but appears to be in pain. Communicates well with provider and answers questions appropriately. SKIN - Without rashes. No meningeal or petechial rash. HEAD - NC/AT. EYES - PERRL with EOMI bilaterally. Sclera anicteric. Palpebral conjunctiva pink and moist with no injection noted. MOUTH/OROPHARYNX - Without perioral cyanosis. NECK - Neck with FROM. No nuchal rigidity. LUNGS - Chest wall symmetric without accessory muscle use, intercostals retractions, or central cyanosis. Normal vesicular breath sounds CTA B/L. No wheezes, rales, or rhonchi appreciated. CARDIAC - RRR ABDOMEN - Abdominal contour normal without pulsations or visible masses. BS normoactive all four quadrants. No tenderness, palpable masses, hepatosplenomegaly, or ascites noted. EXTREMITIES - No clubbing or peripheral cyanosis. +5/5 strength noted in UE/LE bilaterally. NEUROLOGIC - Cranial nerves grossly intact. PSYCH -alert, oriented and pleasant on exam. Pt is very pleasant and interacts well with examiner. Course Administered Medications Escitalopram Oxalate (Escitalopram Oxalate 10 Mg Tab) 10 mg PO DAILY [facility] Stop: 10/17/24 10:44 Last Admin: 09/17/24 11:39 Dose: 10 mg Documented By: JACIN Aztreonam 1,000 mg/ Dextrose 100 mls @ 100 mls/hr IV Q8H [facility] Stop: 09/27/24 10:59 Last Infusion: 09/18/24 04:06 Dose: Infused Documented By: Admin: 09/18/24 02:21 Dose: 100 mls/hr Documented By: Infusion: 09/17/24 21:04 Dose: Infused Documented By: Admin: 09/17/24 19:32 Dose: 100 mls/hr Documented By: Infusion: 09/17/24 12:36 Dose: Infused Documented By: Admin: 09/17/24 11:39 Dose: 100 mls/hr Documented By: SARIAH Lactobacillus Acidophilus (Advanced Probiotic 625 Mg Capsule) 1,250 mg PO DAILY [facility] Stop: 10/17/24 10:29 Last Admin: 09/17/24 11:39 Dose: 1,250 mg Documented By: SARIAH Morphine Sulfate (Morphine Sulfate 2 Mg/Ml Carp) 2 mg IV Q4H PRN PRN Reason: Mod-Sev Pain (Scale 4-10) Stop: 10/01/24 12:34 Last Admin: 09/17/24 19:27 Dose: 2 mg Documented By: LASHANDA Multivitamins/Folic Acid/Vitamin C (Multivitamin Chewable Tab) 1 tab PO BID [facility] Stop: 10/17/24 10:44 Last Admin: 09/17/24 19:35 Dose: 1 tab Documented By: Admin: 09/17/24 11:39 Dose: 1 tab Documented By: SARIAH Ondansetron HCl (Ondansetron Inj 2 Mg/Ml 2 Ml Vial) 4 mg IV Q6H PRN PRN Reason: Nausea Stop: 10/17/24 12:34 Last Admin: 09/17/24 19:26 Dose: 4 mg Documented By: LASHANDA Pantoprazole Sodium (Pantoprazole 40 Mg Tab) 40 mg PO DAILY [facility] Stop: 10/17/24 10:44 Last Admin: 09/17/24 11:39 Dose: 40 mg Documented By: JACIN Topiramate (Topiramate 25 Mg Tab) 25 mg PO BID JOE Stop: 10/17/24 10:44 Last Admin: 09/17/24 19:35 Dose: 25 mg Documented By: Admin: 09/17/24 11:39 Dose: 25 mg Documented By: MMJuan Vitamin B Complex (Vitamin B Complex Tab) 1 tab PO DAILY JOE Stop: 10/17/24 10:44 Last Admin: 09/17/24 11:39 Dose: 1 tab Documented By: MMN Discontinued Medications Hydromorphone HCl (Hydromorphone Inj 0.5 Mg/0.5 Ml Syr) 0.5 mg IV NOW STA Stop: 09/17/24 08:46 Last Admin: 09/17/24 08:53 Dose: 0.5 mg Documented By: BALBINA Sodium Chloride (Nss) 1,000 mls @ 999 mls/hr IV .Q1H1M ONE Stop: 09/17/24 08:03 Last Infusion: 09/17/24 08:35 Dose: Infused Documented By: Admin: 09/17/24 07:32 Dose: 999 mls/hr Documented By: BALBINA Acetaminophen (Ofirmev) 1,000 mg in 100 mls @ 400 mls/hr IV NOW STA Stop: 09/17/24 09:59 Last Infusion: 09/17/24 10:13 Dose: Infused Documented By: Admin: 09/17/24 09:51 Dose: 400 mls/hr Documented By: BALBINA Potassium Chloride (K Handy / Wtr) 10 meq in 100 mls @ 100 mls/hr IV Q1H JOE Stop: 09/17/24 14:29 Last Infusion: 09/17/24 15:38 Dose: Infused Documented By: Admin: 09/17/24 14:40 Dose: 100 mls/hr Documented By: Infusion: 09/17/24 14:40 Dose: Infused Documented By: Admin: 09/17/24 13:51 Dose: 100 mls/hr Documented By: Infusion: 09/17/24 13:51 Dose: Infused Documented By: Admin: 09/17/24 12:52 Dose: 100 mls/hr Documented By: Infusion: 09/17/24 11:45 Dose: Infused Documented By: Admin: 09/17/24 10:43 Dose: 100 mls/hr Documented By: BALBINA Sodium Chloride (Nss) 1,000 mls @ 125 mls/hr IV .Q8H JOE Stop: 09/18/24 02:29 Last Infusion: 09/18/24 04:06 Dose: Infused Documented By: Admin: 09/17/24 19:22 Dose: 125 mls/hr Documented By: Infusion: 09/17/24 18:44 Dose: Infused Documented By: Admin: 09/17/24 10:44 Dose: 125 mls/hr Documented By: BALBINA Ioversol (Optiray 320 100ml) 94 ml IV ONCE ONE Stop: 09/17/24 08:17 Last Admin: 09/17/24 08:16 Dose: 94 ml Documented By: DALLIN Ketorolac Tromethamine (Ketorolac Tromethamine 15 Mg/Ml Vial) 15 mg IV NOW ONE Stop: 09/17/24 10:09 Last Admin: 09/17/24 10:20 Dose: 15 mg Documented By: BALBINA Morphine Sulfate (Morphine Sulfate 4 Mg/Ml 1 Ml Carp\\Vial) 4 mg IV NOW STA Stop: 09/17/24 07:04 Last Admin: 09/17/24 07:32 Dose: 4 mg Documented By: BALBINA Ondansetron HCl (Ondansetron Inj 2 Mg/Ml 2 Ml Vial) 4 mg IV NOW STA Stop: 09/17/24 07:04 Last Admin: 09/17/24 07:32 Dose: 4 mg Documented By: BALBINA Tamsulosin HCl (Tamsulosin Hcl 0.4 Mg Cap) 0.4 mg PO NOW ONE Stop: 09/17/24 10:09 Last Admin: 09/17/24 10:20 Dose: 0.4 mg Documented By: BALBINA Medical Decision Making Laboratory Data 09/17/24 06:30 09/17/24 06:30 Lab Results 09/17/24 09/17/24 Range/Units 06:30 06:55 WBC 6.39 (4.8-10.8) K/ul RBC 5.33 (4.20-5.40) M/uL Hgb 15.3 (12.0-16.0) g/dl Hct 43.4 (37.0-47.0) % MCV 81.4 (80.0-100.0) fL MCH 28.7 (25.0-34.0) pg MCHC 35.3 (32.0-36.0) g/dL RDW Std Deviation 44.3 (36.4-46.3) fL RDW Coeff of Abdi 15.2 H (11.5-14.5) % Plt Count 240 (130-400) K/uL MPV 13.3 H (9.4-12.4) fL Immature Gran % (Auto) 0.2 % Neut % (Auto) 44.4 % Lymph % (Auto) 43.7 % [place] % (Auto) 7.7 % Eos % (Auto) 3.4 % Baso % (Auto) 0.6 % Neut # (Auto) 2.84 (1.40-6.50) K/uL Lymph # (Auto) 2.79 (1.20-3.40) K/uL [place] # (Auto) 0.49 (0.11-0.59) K/uL Eos # (Auto) 0.22 (0.00-0.50) K/uL Baso # (Auto) 0.04 (0.00-0.20) K/uL Immature Gran # (Auto) 0.01 (0.01-0.20) K/uL Sodium 141 (136-145) mmol/L Potassium 3.4 L (3.5-5.1) mmol/L Chloride 106 (98-107) mmol/L Carbon Dioxide 23 (21-32) mmol/L Anion Gap 12 H (3-11) BUN 11 (6-23) mg/dl Creatinine 0.70 (0.6-1.2) mg/dl Est Cr Clr Drug Dosing 183.9 ml/min eGFR 116.31 BUN/Creatinine Ratio 15.7 (10-20) Glucose 98 (70-99(Fasting)) mg/dl Calcium 9.1 (8.6-10.3) mg/dl Total Bilirubin 1.0 (0.2-1.0) mg/dl AST 18 (13-39) U/L ALT 26 (7-52) U/L Alkaline Phosphatase 67 (34-104) U/L Total Protein 6.8 (6.0-8.3) gm/dl Albumin 4.1 (3.4-5.0) gm/dl Globulin 2.7 (2.5-4.0) gm/dl Albumin/Globulin Ratio 1.5 (0.9-2) Urine Color Dark Yellow Urine Appearance Cloudy A (Clear) Urine pH 5.5 (4.5-7.5) Ur Specific [place] 1.036 H (1.000-1.030) Urine Protein 1+ H (Negative) Urine Glucose (UA) Negative (Negative) Urine Ketones 3+ H (Negative) Urine Blood 3+ H (Negative) Urine Nitrite Negative (Negative) Urine Bilirubin 2+ H (Negative) Urine Urobilinogen Negative (Negative) Ur Leukocyte Esterase Trace H (Negative) Urine WBC (Auto) 0-5 (0-5) /hpf Urine RBC (Auto) >20 H (0-2) /hpf U Hyaline Cast (Auto) 3-5 H (0-2) /lpf U Epithel Cells (Auto) 6-10 H (0-2) /hpf Urine Bacteria (Auto) None Seen (None Seen) Calcium Oxalate Crystal Present A (None Prsent) Urine Mucus Present A (None Prsent) Urine Test Negative (Negative) Imaging Data Radiologist's Impression: Abdomen/Pelvis CT 09/17/24 07:03 CT OF THE ABDOMEN AND PELVIS WITH CONTRAST CLINICAL HISTORY: Left flank pain. COMPARISON STUDY: CT of the abdomen and pelvis August 08, 2024. TECHNIQUE: Following IV administration of 94 mL of Optiray, axial images of the abdomen and pelvis were obtained from the lung bases to the proximal femurs. Images were reviewed in the axial, sagittal, and coronal planes. IV contrast was administered without complication. Automated exposure control was utilized for the study. A dose lowering technique was utilized adhering to the principles of ALARA. CT DOSE: 1662.18 mGy.cm FINDINGS: Lung bases are unremarkable. A 5 mm left ureteropelvic junction calculus results in mild left hydronephrosis with delayed nephrogram. There is trace left perinephric stranding. No additional urinary calculi are present. There is no right hydronephrosis. Postoperative findings within the stomach are noted. There is no evidence for a bowel obstruction. No biliary or pancreatic ductal dilatation is present. Spleen, adrenal glands and pancreas are unremarkable. There are no fluid collections. No lymphadenopathy is present. Ovaries are not enlarged. Major vasculature is patent. IMPRESSION: 5 mm left ureteropelvic junction calculus results in mild hydronephrosis with delayed nephrogram and trace left perinephric stranding. ACT 112: Negative or not required by law. Electronically signed by: Balaji Finnegan M.D. 09/17/2024 8:41 AM MDM Narrative Patient was seen and evaluated as above in room B05. Review was performed of triage nursing notes and vital signs. Patient presents to us today for evaluation of Left-sided low back pain. No trauma. No injury. Began around 4 AM today. After obtaining a thorough history and physical examination the above work up was performed. IV access with established. Labs were drawn. Patient medicated here with IV morphine, IV Dilaudid, IV Zofran, IV fluids, IV acetaminophen for pain. CT scan of the abdomen/pelvis was ordered. No leukocytosis or concerning anemia. Mild hypokalemia 3.4. Urinalysis suggests what appears to be mildly contaminated sample without bacteria. UPT negative. CT scan was obtained of the abdomen/pelvis send is as above. 5 mm left UVJ stone noted. Patient continue with discomfort here with the analgesia listed above. At this time we will proceed with inpatient management noting ongoing significant pain. I did discuss this with urology as well. At this time no operative intervention indicated. Case discussed with the hospitalist service. Please refer to further documentation regarding her stay. GCS: 15 In the evaluation and treatment of this patient the following differential diagnoses were entertained: Kidney stone, ovarian torsion, UTI, pyelonephritis, diverticulitis, among others Impression & Plan Acute left flank pain, Hypokalemia, Ureteropelvic junction calculus Discharge Plan Visit Data Chief Complaint: Back Injury/Pain Stated Complaint: LOW BACK PAIN,NAUSEA ED Provider: Jeff Vela ED Midlevel Provider: Ezekiel Powell Discharge Problem: Acute left flank pain, Hypokalemia, Ureteropelvic junction calculus Patient Disposition: Admitted As Inpatient Condition: Good Discharge Instructions Interventions: ED Discharge Assessment Last Done: 09/17/24 12:04
[2024-09-17 07:25] LABS: Albumin Globulin Ratio 1.5 (0.9-2); Albumin Level 4.1 gm/dl (3.4-5.0); BUN Creatinine Ratio 15.7 (10-20); Calcium 9.1 mg/dl (8.6-10.3); Creatinine Clr Calc Pharmacy 183.9 ml/min; Globulin 2.7 gm/dl (2.5-4.0); Potassium 3.4 mmol/L (3.5-5.1); Total Protein 6.8 gm/dl (6.0-8.3)
[2024-09-17 07:28] LABS: Pregnancy Test, Urine Negative (Negative)
[2024-09-17] MEDS: ONDANSETRON INJ 2 MG/ML 2 ML VIAL IV STA (07:32)
[2024-09-17] MEDS: MoRPHine SULFATE 4 MG/ML 1 ML CARP\\VIAL IV STA (07:32)
[2024-09-17] MEDS: SODIUM CHLORIDE 0.9% 1,000 ML IV ONE (07:32)
[2024-09-17 08:12] LABS: Appearance Urine Cloudy (Clear); Bacteria Urine Automated None Seen (None Seen); Bilirubin Urine 2+ (Negative); Blood Urine 3+ (Negative); Calcium Oxalate Crystals Urine Present (None Prsent); Color Urine Dark Yellow; Glucose Urine UA Negative (Negative); Ketones Urine 3+ (Negative); Leukocyte Esterase Urine Trace (Negative); Mucus Urine Present (None Prsent); Nitrite Urine Negative (Negative); Protein Urine 1+ (Negative); RBC Urine Automated >20 /hpf (0-2); Specific Gravity Urine 1.036 (1.000-1.030); Urobilinogen Urine Negative (Negative); WBC Urine Automated 0-5 /hpf (0-5); pH Urine 5.5 (4.5-7.5)
[2024-09-17] MEDS: OPTIRAY 320 100ml IV ONE (08:16)
--- NOTE | 2024-09-17 08:43 | CT Scan Report ---
CT OF THE ABDOMEN AND PELVIS WITH CONTRAST CLINICAL HISTORY: Left flank pain. COMPARISON STUDY: CT of the abdomen and pelvis August 08, 2024. TECHNIQUE: Following IV administration of 94 mL of Optiray, axial images of the abdomen and pelvis we re obtained from the lung bases to the proximal femurs. Images were reviewed in the axial, sagittal, and coronal planes. IV contrast was administered without complication. Automated exposure control wa s utilized for the study. A dose lowering technique was utilized adhering to the principles of ALARA . CT DOSE: 1662.18 mGy.cm FINDINGS: Lung bases are unremarkable. A 5 mm left ureteropelvic junction calculus results in mild le ft hydronephrosis with delayed nephrogram. There is trace left perinephric stranding. No additional u rinary calculi are present. There is no right hydronephrosis. Postoperative findings within the stoma ch are noted. There is no evidence for a bowel obstruction. No biliary or pancreatic ductal dilatatio n is present. Spleen, adrenal glands and pancreas are unremarkable. There are no fluid collections. N o lymphadenopathy is present. Ovaries are not enlarged. Major vasculature is patent. IMPRESSION: 5 mm left ureteropelvic junction calculus results in mild hydronephrosis with delayed ne phrogram and trace left perinephric stranding. ACT 112: Negative or not required by law. Electronically signed by: Balaji Finnegan M.D. 09/17/2024 8:41 AM
[2024-09-17] MEDS: HYDROmorphone INJ 0.5 MG/0.5 ML SYR IV STA (08:53)
[2024-09-17] MEDS: ACETAMINOPHEN 1,000 MG/100 ML VIAL IV STA (09:51)
--- NOTE | 2024-09-17 10:03 | History & Physical Report ---
Date of Service September 17, 2024 Assessment & Plan (1) Ureteropelvic junction calculus: (2) Hypokalemia: Plan Dina Acosta is a 34-year-old female with past medical history significant for PCOS, hyperinsulinemia, severe obesity s/p gastric bypass surgery [07/2024] complicated by postoperative ileus, intestinal postoperative absorption, left- sided low back pain with left-sided sciatica, history of migraines and ROSANNE/depression who presented to the ED on 09/17/2024 with complaints of left-sided flank pain and nausea. Obstructive Left Ureteropelvic Junction Calculus with Perinephric Stranding: CTAP --> 5mm left uteropelvic junction calculus resulting in mild left hydronephrosis with delayed nephrogram, trace left perinephric stranding. UA with trace leukocyte esterase; no evidence of urine bacteria. Initial lab work rather unremarkable except for mild hypokalemia as per below. Urology consulted. No surgical intervention warranted at this time per urology [discussion via TT with Ezekiel Powell PA-C]. S/p 1L NSS in ED. Continue PRN pain control, IVF x 2 more bags. Flomax ordered. Covering with IV aztreonam; probiotic added on. Hypokalemia: K+ 3.4 on initial laboratory evaluation; repleting with IV KCl 10mEq x 4 bags. Continue to monitor and manage electrolytes PRN. Other Chronic Medical Conditions: * Anxiety/Depression - Continue Lexapro. H/O Migraines - Continue Topamax. * H/O Gastric Bypass Surgery - Continue omeprazole, vitamin B complex + multivitamin. DVT Prophylaxis: SCDs/TEDs for now. Code Status: FULL CODE PCP: Cinthya Hatfield, Disposition: Admit to Med/Surg for further inpatient evaluation. Patient seen in collaboration with Dr. Olivares. Please see addendum. I spent a total of 45 minutes coordinating, documenting, and providing care for this patient excluding time spent in the performance of separately billed services. This included personally reviewing all current laboratories and imaging studies, medical reconciliation, outpatient chart review and discussion with specialists. This chart was completed in part utilizing Speech Voice Recognition Software. Grammatical errors, random word insertions, pronoun errors, and incomplete sentences are an occasional consequence of this system due to software limitations, ambient noise, and hardware issues. Any formal questions or concerns about the content, text, or information contained within the body of this dictation should be directly addressed to the provider for clarification. History of Present Illness Chief Complaint: Left Flank Pain, N/V Primary Care Provider: Cinthya Hatfield DO Dina Acosta is a 34-year-old female with past medical history significant for PCOS, hyperinsulinemia, severe obesity s/p gastric bypass surgery [07/2024] complicated by postoperative ileus, intestinal postoperative absorption, left- sided low back pain with left-sided sciatica, history of migraines and ROSANNE/depression who presented to the ED on 09/17/2024 with complaints of left-sided flank pain and nausea. History obtained from the patient and associated chart review. Patient seen at bedside in the ED with Dr. Olivares. Patient with notable left-sided flank pain and nausea which started around 4AM this morning. CTAP in the ED revealed a 5mm left ureteropelvic junction calculus resulting in mild left hydronephrosis with delayed nephrogram area in addition to trace left perinephric stranding. No prior history of kidney stones per the patient. Most recent meal was last evening; poor oral intake today secondary to the pain and nausea. S/p 4mg IV morphine, 0.5mg IV Dilaudid and 1g IV Tylenol in the ED. Pain somewhat improved since presentation however is still 6-7/10. No episodes of vomiting since arrival to the ED however she does remain intermittently nauseous. She did not take any of her home medications this morning. No other abdominal surgeries except for the gastric bypass she had last July as per above. No reported fevers. Denies any diarrhea. No history of smoking or frequent alcohol use. Patient is still doing the bariatric diet - currently on stage III. Allergies Allergy/AdvReac Type Severity Reaction Status Date / Time cephalexin [From Keflex] Allergy Severe difficulty Verified 02/14/24 10:08 breathing/itchy amoxicillin Allergy Unknown HAPPENED Verified 02/14/24 10:08 AN diphenhydramine AdvReac Intermediate LEG PAIN Verified 02/14/24 10:08 Home Medications Medication Instructions Recorded Confirmed Type topiramate 25 mg tablet (Topamax) 25 mg PO BID 08/22/18 09/17/24 History escitalopram oxalate 10 mg tablet 10 mg PO DAILY 02/14/24 09/17/24 History multivitamin 1 tab PO BID 09/17/24 09/17/24 History omeprazole 20 mg capsule,delayed 20 mg PO DAILY 09/17/24 09/17/24 History release vitamin B complex 1 cap PO DAILY 09/17/24 09/17/24 History Past Med/Surg History Problem List Hypokalemia Ureteropelvic junction calculus Encounter for pre-operative examination Insulin resistance (Chronic) on metformin GERD (gastroesophageal reflux disease) (Chronic) Anxiety (Chronic) PCOS (polycystic ovarian syndrome) (Chronic) Obesity (Chronic) Migraine (Chronic) Seizure disorder (Chronic) last 2010--grand mal--reason for topamax Medical History Morbid obesity with BMI of 50.0-59.9, adult Surgical History History of esophagogastroduodenoscopy (EGD) Family History Sister Family history of diabetes mellitus Aunt Family history of diabetes mellitus Uncle Family history of diabetes mellitus Grandmother (Maternal) Family hx colonic polyps Other No family history of adverse response to anesthesia Social History Smoking Status: Never smoker Second Hand Exposure: Yes (family all smokes); Do You Dip or Chew Tobacco: No; Hx Alcohol Use: No Hx Substance Use: No Preferred Language: Bruneian Communication Ability: Effective Funder Required: No Beliefs That Will Affect Care: None Current Living Situation: Family Current Living Situation Comment: lives with grandparents Feels Safe at Home: Yes Assistive Devices: Glasses Review of Systems Review of Systems: At least ten systems reviewed and negative, except as noted in the HPI. Physical Exam Physical Exam: Please refer to Dr. Olivares' addendum for physical examination findings. Results & Data Results & Data Vital Signs (Past 12 Hours) Vital Signs Temp Pulse Pulse Resp BP BP Pulse Ox 09/17/24 09:54 48 L 20 116/81 97 09/17/24 08:04 53 L 20 127/69 95 09/17/24 06:34 54 L 09/17/24 06:06 36.5 C 62 19 112/72 96 O2 Del Method 09/17/24 09:54 Room Air 09/17/24 08:04 Room Air 09/17/24 06:34 09/17/24 06:06 Room Air Laboratory Results Short CBC 09/17/24 Range/Units 06:30 WBC 6.39 (4.8-10.8) K/ul Hgb 15.3 (12.0-16.0) g/dl Hct 43.4 (37.0-47.0) % Plt Count 240 (130-400) K/uL BMP 09/17/24 06:30 Sodium 141 Potassium 3.4 L Chloride 106 Carbon Dioxide 23 BUN 11 Creatinine 0.70 Glucose 98 Calcium 9.1 Liver Function 09/17/24 Range/Units 06:30 Total Bilirubin 1.0 (0.2-1.0) mg/dl AST 18 (13-39) U/L ALT 26 (7-52) U/L Alkaline Phosphatase 67 (34-104) U/L Albumin 4.1 (3.4-5.0) gm/dl Urine 09/17/24 Range/Units 06:55 Urine Color Dark Yellow Urine Appearance Cloudy A (Clear) Urine pH 5.5 (4.5-7.5) Ur Specific [place] 1.036 H (1.000-1.030) Urine Protein 1+ H (Negative) Urine Glucose (UA) Negative (Negative) Diagnostic Findings Abdomen/Pelvis CT 09/17/24 07:03 CT OF THE ABDOMEN AND PELVIS WITH CONTRAST CLINICAL HISTORY: Left flank pain. COMPARISON STUDY: CT of the abdomen and pelvis August 08, 2024. TECHNIQUE: Following IV administration of 94 mL of Optiray, axial images of the abdomen and pelvis were obtained from the lung bases to the proximal femurs. Images were reviewed in the axial, sagittal, and coronal planes. IV contrast was administered without complication. Automated exposure control was utilized for the study. A dose lowering technique was utilized adhering to the principles of ALARA. CT DOSE: 1662.18 mGy.cm FINDINGS: Lung bases are unremarkable. A 5 mm left ureteropelvic junction calculus results in mild left hydronephrosis with delayed nephrogram. There is trace left perinephric stranding. No additional urinary calculi are present. There is no right hydronephrosis. Postoperative findings within the stomach are noted. There is no evidence for a bowel obstruction. No biliary or pancreatic ductal dilatation is present. Spleen, adrenal glands and pancreas are unremarkable. There are no fluid collections. No lymphadenopathy is present. Ovaries are not enlarged. Major vasculature is patent. IMPRESSION: 5 mm left ureteropelvic junction calculus results in mild hydronephrosis with delayed nephrogram and trace left perinephric stranding. ACT 112: Negative or not required by law. Electronically signed by: Balaji Finnegan M.D. 09/17/2024 8:41 AM Medications Administered Discontinued Medications Hydromorphone HCl (Hydromorphone Inj 0.5 Mg/0.5 Ml Syr) 0.5 mg IV NOW STA Stop: 09/17/24 08:46 Last Admin: 09/17/24 08:53 Dose: 0.5 mg Documented By: BALBINA Sodium Chloride (Nss) 1,000 mls @ 999 mls/hr IV .Q1H1M ONE Stop: 09/17/24 08:03 Last Infusion: 09/17/24 08:35 Dose: Infused Documented By: Admin: 09/17/24 07:32 Dose: 999 mls/hr Documented By: BALBINA Acetaminophen (Ofirmev) 1,000 mg in 100 mls @ 400 mls/hr IV NOW STA Stop: 09/17/24 09:59 Last Infusion: 09/17/24 10:13 Dose: Infused Documented By: Admin: 09/17/24 09:51 Dose: 400 mls/hr Documented By: BALBINA Ioversol (Optiray 320 100ml) 94 ml IV ONCE ONE Stop: 09/17/24 08:17 Last Admin: 09/17/24 08:16 Dose: 94 ml Documented By: DALLIN Ketorolac Tromethamine (Ketorolac Tromethamine 15 Mg/Ml Vial) 15 mg IV NOW ONE Stop: 09/17/24 10:09 Last Admin: 09/17/24 10:20 Dose: 15 mg Documented By: BALBINA Morphine Sulfate (Morphine Sulfate 4 Mg/Ml 1 Ml Carp\Vial) 4 mg IV NOW STA Stop: 09/17/24 07:04 Last Admin: 09/17/24 07:32 Dose: 4 mg Documented By: BALBINA Ondansetron HCl (Ondansetron Inj 2 Mg/Ml 2 Ml Vial) 4 mg IV NOW STA Stop: 09/17/24 07:04 Last Admin: 09/17/24 07:32 Dose: 4 mg Documented By: BALBINA Tamsulosin HCl (Tamsulosin Hcl 0.4 Mg Cap) 0.4 mg PO NOW ONE Stop: 09/17/24 10:09 Last Admin: 09/17/24 10:20 Dose: 0.4 mg Documented By: BALBINA Code Status & VTE Plan Code Status FULL CODE Supervising Physician Co-Signing Physician Notes I have seen and discussed the case with the collaborating advanced practitioner. I agree with the above H&P. I have reviewed and confirmed the patients medical history, the findings on physical examination, and the patients diagnosis and treatment plan with Vinod STARKEY and agree with the information documented. In short, MS Acosta is a 34 yo woman with history of recent gastric bypass who presented due to left flank pain and found to have 5mm stone in UPJ. Patient with notable pain and nausea Reports notable reaction to penicillins and 1st gen cephalosporins GENERAL APPEARANCE: AxOx4, uncomfortable woman 2/2 pain HEENT: NC, AT. MMM. EOMI, clear conjunctiva HEART: Normal rate and regular rhythm, normal S1/S1, no m/r/g LUNGS: CTAB, moving air well. No crackles or wheezes are heard. ABDOMEN: Soft, nontender, nondistended with good bowel sounds heard BACK:.declined CVA exam 2/2 active flank pain EXTREMITIES: Without cyanosis, clubbing or edema. NEUROLOGICAL: Grossly nonfocal. Alert and oriented, moving all 4 extremities. CN not formally tested but appear grossly intact Skin: Warm and dry without any rash. : #Obstructive nephrolithiasis with perinephric stranding Urology: no intervention at this time Aztreonam 1g q8 2/2 allergy flomax 0.4 for spasms analgesia prn UA ordered I spent a total of 15 minutes coordinating, documenting, and providing care for this patient excluding time spent in the performance of separately billed services. All of the aforementioned completed outside of collaborating with the assigned advanced practitioner for a full treatment plan. I have reviewed the advanced practitioner's documentation, and I agree with, and take responsibility for the plan of care
[2024-09-17] MEDS: TAMSULOSIN HCL 0.4 MG CAP PO ONE (10:20)
[2024-09-17] MEDS: KETOROLAC TROMETHAMINE 15 MG/ML VIAL IV ONE (10:20)
[2024-09-17] MEDS: POTASSIUM CHLORIDE / WTR 10 MEQ/100 ML PLCT IV SCH (10:43)
[2024-09-17] MEDS: SODIUM CHLORIDE 0.9% 1,000 ML IV SCH (10:44)
[2024-09-17] MEDS: ADVANCED PROBIOTIC 625 MG CAPSULE PO SCH (11:39)
[2024-09-17] MEDS: VITAMIN B COMPLEX TAB PO SCH (11:39)
[2024-09-17] MEDS: MULTIVITAMIN CHEWABLE TAB PO SCH (11:39)
[2024-09-17] MEDS: TOPIRAMATE 25 MG TAB PO SCH (11:39)
[2024-09-17] MEDS: AZTREONAM 1,000 MG in DEXTROSE 5% MINI-B 100 ML IV SCH (11:39)
[2024-09-17] MEDS: PANTOprazole 40 MG TAB PO SCH (11:39)
[2024-09-17] MEDS: ESCITALOPRAM OXALATE 10 MG TAB PO SCH (11:39)
[2024-09-17] MEDS ORDERED: POLYETHYLENE (MIRALAX) 17 GM PACK PO PRN (12:35)
[2024-09-17] MEDS ORDERED: MAGNESIUM HYDROXIDE SUSP 30 ML UDC PO PRN (12:35)
--- NOTE | 2024-09-17 14:46 | Urology Consultation ---
Date of Consultation September 17, 2024 Assessment & Plan (1) Ureteropelvic junction calculus: 34-year-old female admitted for left renal colic secondary to an obstructing 5 mm left UPJ stone with mild hydronephrosis. Patient is afebrile and hemodynamically stable Labs reviewedcreatinine 0.70, no leukocytosis Urinalysis was not suggestive of UTI Recommend send for urine culture CTAP reviewed and discussed5 mm left UPJ stone with mild hydronephrosis Left flank pain has improved since arrival Discussed options for stone management including trial of passage with medical expulsive therapy versus surgical intervention Discussed surgical intervention with cystoscopy and left ureteral stent placement while inpatient or outpatient surgical options if pain is controlled After discussion, will monitor overnight and reassess tomorrow Okay for diet today, make n.p.o. at midnight Continue supportive care and medical management per hospital medicine service will follow History of Present Illness Reason for Consultation: Left ureteral stone Requesting Physician: Dr. Olivares Attending Physician: Oneyda Olivares MD History of Present Illness This is a 34-year-old female with past medical history of PCOS and morbid obesity status post gastric bypass surgery in July who presented to the emergency department on 09/17/2024 for evaluation of sudden onset of left flank pain and nausea starting around 4 AM this morning. On arrival to ED, she was afebrile and hemodynamically stable. Workup in emergency room included CT abdomen pelvis with contrast which showed a 5 mm left UPJ stone resulting in mild right hydronephrosis with delayed nephrogram and trace left perinephric stranding. Lab work showed a white count of 6.39, hemoglobin 15.3, potassium 3.4, creatinine 0.7. Urinalysis showed 3+ blood, trace LE, 6-10 epithelials, >20 RBC and negative for bacteria. ED course: IV fluids, morphine, hydromorphone and acetaminophen. She was admitted to the hospital medicine service for pain management. Urology is consulted for left ureteral stone with hydronephrosis. Patient seen and examined at bedside. She is awake and resting in bed. Flank pain has improved since arrival. No nausea or vomiting at present. She is voiding spontaneously. No dysuria or hematuria. No prior history of kidney stones. Allergies Allergy/AdvReac Type Severity Reaction Status Date / Time cephalexin [From Keflex] Allergy Severe difficulty Verified 02/14/24 10:08 breathing/itchy amoxicillin Allergy Unknown HAPPENED Verified 02/14/24 10:08 AN INFANT diphenhydramine AdvReac Intermediate LEG PAIN Verified 02/14/24 10:08 Home Medications Medication Instructions Recorded Confirmed Type topiramate 25 mg tablet (Topamax) 25 mg PO BID 08/22/18 09/17/24 History escitalopram oxalate 10 mg tablet 10 mg PO DAILY 02/14/24 09/17/24 History multivitamin 1 tab PO BID 09/17/24 09/17/24 History omeprazole 20 mg capsule,delayed 20 mg PO DAILY 09/17/24 09/17/24 History release vitamin B complex 1 cap PO DAILY 09/17/24 09/17/24 History Patient History Medical History Morbid obesity with BMI of 50.0-59.9, adult Surgical History History of esophagogastroduodenoscopy (EGD) Family History Sister Family history of diabetes mellitus Aunt Family history of diabetes mellitus Uncle Family history of diabetes mellitus Grandmother (Maternal) Family hx colonic polyps Other No family history of adverse response to anesthesia Social History Smoking Status: Never smoker Second Hand Exposure: Yes (family all smokes); Do You Dip or Chew Tobacco: No; Hx Alcohol Use: No Hx Substance Use: No Preferred Language: Wolof Communication Ability: Effective Test Center Administrator Required: No Beliefs That Will Affect Care: None Current Living Situation: Family Current Living Situation Comment: lives with grandparents Other Information That Helps Us Care for You: No Feels Safe at Home: Yes Safety Concerns: Feels Safe At This Time Assistive Devices: Glasses Review of Systems Review of Systems: All systems reviewed & are unremarkable except as noted in HPI & below Physical Exam Constitutional: well developed, well nourished and + obese; no acute distress Respiratory: normal respiratory effort; no respiratory distress and no labored breathing Gastrointestinal (Abdomen): Inspection/Auscultation: abdomen normal to inspection Musculoskeletal: Head/Neck/Chest: normocephalic Neurologic: moves all extremities and awake Psychiatric: Orientation: alert and oriented x 3 Results & Data Vital Signs (Past 12 Hours) Vital Signs Temp Pulse Pulse Pulse Resp BP BP 09/17/24 14:08 36.7 C 54 L 16 105/66 09/17/24 12:41 36.6 C 57 L 18 128/85 09/17/24 11:31 51 L 18 105/59 L 09/17/24 11:00 50 L 17 103/56 L 09/17/24 09:54 48 L 20 116/81 09/17/24 08:04 53 L 20 127/69 09/17/24 06:34 54 L 09/17/24 06:06 36.5 C 62 19 112/72 Pulse Ox O2 Del Method 09/17/24 14:08 97 Room Air 09/17/24 12:41 98 Room Air 09/17/24 11:31 97 Room Air 09/17/24 11:00 97 Room Air 09/17/24 09:54 97 Room Air 09/17/24 08:04 95 Room Air 09/17/24 06:34 09/17/24 06:06 96 Room Air PG Care Time/CCT Total # of Minutes Spent Total Time Spent with Patient: Total time spent is greater than 50% in coordination of care (as documented) at patient's floor/unit and/or counseling patient: Coding Level of Care Code 89409 IN/OBS CONSULT LVL 4,60M Diagnoses Ureteropelvic junction calculus N20.1
[2024-09-17] MEDS: ONDANSETRON INJ 2 MG/ML 2 ML VIAL IV PRN (19:26)
[2024-09-17] MEDS: MoRPHine SULFATE 2 MG/ML CARP IV PRN (19:27)
[2024-09-18] MEDS: TAMSULOSIN HCL 0.4 MG CAP PO SCH (08:59)
[2024-09-18 09:41] LABS: Hematocrit (blood only) 43.7 % (37.0-47.0); Mean Corpuscular Hemoglobin 28.7 pg (25.0-34.0); Mean Corpuscular Hgb Conc 34.3 g/dL (32.0-36.0); Mean Corpuscular Volume 83.7 fL (80.0-100.0); Mean Platelet Volume 13.2 fL (9.4-12.4); Platelet Count 255 K/uL (130-400); RDW Coefficient of Variation 15.9 % (11.5-14.5); RDW Standard Deviation 48.3 fL (36.4-46.3); Red Blood Count 5.22 M/uL (4.20-5.40); White Blood Count 5.97 K/ul (4.8-10.8)
--- NOTE | 2024-09-18 09:42 | Urology Progress Note ---
Date of Service September 18, 2024 Assessment & Plan (1) Acute left flank pain: (2) Ureteropelvic junction calculus: Plan: 34-year-old female admitted for acute left flank pain secondary to an obstructing left UPJ stone. Patient afebrile and hemodynamically stable Labs pending this morning Urine culture prelim with no growth Continues to have intermittent left flank discomfort and nausea Reviewed options for stone management including trial of passage with medical expulsive therapy versus surgical intervention inpatient or outpatient options After discussion, she would like to proceed with surgical intervention today Will proceed to the OR for cystoscopy, left ureteroscopy, laser lithotripsy and left stent placement Ureteral stents were discussed in detail Risks and benefits of procedure and to be reviewed with patient by Dr. Mohamud Rodriguez n.p.o. for procedure Continue with scheduled antibiotics preoperatively Patient can likely be discharged after surgery today presuming she is medically stable Admission and Anticipated Discharge Date Admission Date: September 17, 2024 Subjective Patient seen and examined at bedside. No acute issues overnight. Intermittent left flank discomfort, relieved with p.o. analgesia. Voiding spontaneously. No fever or chills. No nausea or vomiting. Review of Systems Constitutional: as per Subjective / HPI Genitourinary: as per Subjective / HPI Physical Exam Constitutional: well developed, well nourished and + obese; no acute distress Respiratory: normal respiratory effort; no respiratory distress and no labored breathing Gastrointestinal (Abdomen): Inspection/Auscultation: abdomen normal to inspection Musculoskeletal: Head/Neck/Chest: normocephalic Neurologic: moves all extremities and awake Psychiatric: Orientation: alert and oriented x 3 Results & Data Vital Signs (Past 12 Hours) Vital Signs Temp Pulse Resp BP Pulse Ox O2 Del Method 09/18/24 07:20 36.7 C 66 16 105/70 96 Room Air PG Care Time/CCT Total # of Minutes Spent Total Time Spent with Patient: Total time spent is greater than 50% in coordination of care (as documented) at patient's floor/unit and/or counseling patient: Coding Level of Care Code 93303 SUB INP/OBS CARE 2/35MIN Diagnoses Acute left flank pain R10.9 Ureteropelvic junction calculus N20.1
[2024-09-18 10:02] LABS: BUN Creatinine Ratio 8.8 (10-20); Creatinine Clr Calc Pharmacy 189.3 ml/min; Magnesium 1.8 mg/dl (1.7-2.4); Potassium 3.4 mmol/L (3.5-5.1)
[2024-09-18] MEDS ORDERED: HYDROmorphone INJ 1 MG/ML SYRINGE IV PRN (11:09)
[2024-09-18] MEDS ORDERED: fentaNYL citrate PF 100 MCG/2 ML VIAL IV PRN (11:09)
[2024-09-18] MEDS ORDERED: ONDANSETRON INJ 2 MG/ML 2 ML VIAL IV PRN (11:09)
[2024-09-18] MEDS ORDERED: ePHEDrine sulfate 50 MG/ML AMP IV PRN (11:09)
[2024-09-18] MEDS ORDERED: ATROPINE SULFATE 0.1 MG/ML 10ML SYR IV PRN (11:09)
--- NOTE | 2024-09-18 11:13 | Anesthesiology Consultation ---
Date of Service September 18, 2024 Assessment & Plan Chart Review Chart Review: Acceptable Risk for Surgery Consults Requested none ASA ASA2 Proposed Anesthesia Anesthesia Type: General History Surgery Operation Date: 09/18/24 12:00 Proposed Procedures p Cystoscopy Left Ureteroscopy Laser Lithotripsy and Stent Placement - Enoc Mallory MD Height/Weight Height: 5 ft 11 in Weight: 151 kg Allergies Allergy/AdvReac Type Severity Reaction Status Date / Time cephalexin [From Keflex] Allergy Severe difficulty Verified 02/14/24 10:08 breathing/itchy amoxicillin Allergy Unknown HAPPENED Verified 02/14/24 10:08 AN INFANT diphenhydramine AdvReac Intermediate LEG PAIN Verified 02/14/24 10:08 Medications Home Medications Medication Instructions Recorded Confirmed Last Taken topiramate 25 mg tablet (Topamax) 25 mg PO BID 08/22/18 09/17/24 09/16/24 escitalopram oxalate 10 mg tablet 10 mg PO DAILY 02/14/24 09/17/24 09/16/24 multivitamin 1 tab PO BID 09/17/24 09/17/24 09/16/24 omeprazole 20 mg capsule,delayed 20 mg PO DAILY 09/17/24 09/17/24 09/16/24 release vitamin B complex 1 cap PO DAILY 09/17/24 09/17/24 09/16/24 Active Medications Generic Name Dose Route Start Last Admin Trade Name Freq PRN Reason Stop Dose Admin Escitalopram Oxalate 10 mg 09/17/24 10:45 09/18/24 08:57 Escitalopram Oxalate 10 Mg Tab PO 10/17/24 10:44 10 mg DAILY JOE Administration Aztreonam 1,000 mg/ Dextrose 100 mls @ 100 mls/hr 09/17/24 11:00 09/18/24 04:06 IV 09/27/24 10:59 Infused Q8H JOE Infusion Lactobacillus Acidophilus 1,250 mg 09/17/24 10:30 09/18/24 08:57 Advanced Probiotic 625 Mg Capsule PO 10/17/24 10:29 1,250 mg DAILY JOE Administration Morphine Sulfate 2 mg 09/17/24 12:35 09/17/24 19:27 Morphine Sulfate 2 Mg/Ml Carp IV 10/01/24 12:34 2 mg Q4H PRN Administration Mod-Sev Pain (Scale 4-10) Multivitamins/Folic Acid/Vitamin C 1 tab 09/17/24 10:45 09/18/24 08:58 Multivitamin Chewable Tab PO 10/17/24 10:44 1 tab BID JOE Administration Ondansetron HCl 4 mg 09/17/24 12:35 09/17/24 19:26 Ondansetron Inj 2 Mg/Ml 2 Ml Vial IV 10/17/24 12:34 4 mg Q6H PRN Administration Nausea Pantoprazole Sodium 40 mg 09/17/24 10:45 09/18/24 08:57 Pantoprazole 40 Mg Tab PO 10/17/24 10:44 40 mg DAILY JOE Administration Tamsulosin HCl 0.4 mg 09/18/24 09:00 09/18/24 08:59 Tamsulosin Hcl 0.4 Mg Cap PO 10/18/24 08:59 0.4 mg QAM JOE Administration Topiramate 25 mg 09/17/24 10:45 09/18/24 08:58 Topiramate 25 Mg Tab PO 10/17/24 10:44 25 mg BID JOE Administration Vitamin B Complex 1 tab 09/17/24 10:45 09/18/24 09:00 Vitamin B Complex Tab PO 10/17/24 10:44 1 tab DAILY JOE Administration NPO Date Last Intake of Fluids: 09/17/24 Time Last Intake of Fluids: 18:00 Date Last Intake of Solids: 09/17/24 Time Last Intake of Solids: 18:00 Past Medical History Medical History (Updated 09/17/24 @ 16:23 by Ezekiel Powell PA-C) Morbid obesity with BMI of 50.0-59.9, adult Exercise / Class Metabolic Activity II 4-5 Yardwork/Stairs/Walk up hill Past Family History Family History Sister Family history of diabetes mellitus Aunt Family history of diabetes mellitus Uncle Family history of diabetes mellitus Grandmother (Maternal) Family hx colonic polyps Other No family history of adverse response to anesthesia Past Surgical History Surgical History History of esophagogastroduodenoscopy (EGD) Past Anesthesia History No Hx of Anesthesia Complications and No Family Hx of Anesthesia Complications History of PONV No Hx of PONV Social History Smoking Status: Never smoker Do You Dip or Chew Tobacco: No Hx Alcohol Use: No Alcohol type: beer, wine and hard liquor alcohol intake frequency: holidays/special occasions only Hx Substance Use: No substance use type: does not use Review of Systems ROS Unobtainable: All systems reviewed & are unremarkable except as noted in HPI & below Physical Exam Vital Signs Last Vital Signs Temp 36.9 C 09/18/24 10:36 Pulse 68 09/18/24 10:36 Resp 20 09/18/24 10:36 BP 146/74 H 09/18/24 10:36 Pulse Ox 96 09/18/24 10:36 O2 Del Method Room Air 09/18/24 10:36 Constitutional + morbidly obese; no acute distress ENMT Mallampati Class: II Neck normal visual inspection and + thick neck Respiratory normal respiratory effort Cardiovascular Rate/Rhythm: regular rate Testing Laboratory Results 09/18/24 08:52 09/18/24 08:52 Urine Color Dark Yellow 09/17/24 06:55 Urine Appearance Cloudy (Clear) A 09/17/24 06:55 Urine pH 5.5 (4.5-7.5) 09/17/24 06:55 Ur Specific [place] 1.036 (1.000-1.030) H 09/17/24 06:55 Urine Protein 1+ (Negative) H 09/17/24 06:55 Urine Glucose (UA) Negative (Negative) 09/17/24 06:55 Urine Ketones 3+ (Negative) H 09/17/24 06:55 Urine Nitrite Negative (Negative) 09/17/24 06:55 Ur Leukocyte Esterase Trace (Negative) H 09/17/24 06:55 Urine WBC (Auto) 0-5 /hpf (0-5) 09/17/24 06:55 Urine RBC (Auto) >20 /hpf (0-2) H 09/17/24 06:55 U Hyaline Cast (Auto) 3-5 /lpf (0-2) H 09/17/24 06:55 U Epithel Cells (Auto) 6-10 /hpf (0-2) H 09/17/24 06:55 Urine Bacteria (Auto) None Seen (None Seen) 09/17/24 06:55 Urine Test Negative (Negative) 09/17/24 06:55 09/17/24 16:12 Urine Culture - Preliminary Urine,Clean Catch No growth - Less than 1,000 colonies/mL, Final report to follow. 09/17/24 06:55 Urine Test Negative Electrocardiogram Findings: + NSR @
[2024-09-18] MEDS ORDERED: ONDANSETRON INJ 2 MG/ML 2 ML VIAL ONE (11:25)
[2024-09-18] MEDS ORDERED: LIDOCAINE 2% 2 ML VIAL/AMP(20MG/ML) INFIL ONE (11:25)
[2024-09-18] MEDS ORDERED: DEXAMETHASONE SOD INJ 4 MG/ML VIAL ONE (11:25)
[2024-09-18] MEDS ORDERED: PROPOFOL IV EMULSION 10 MG/ML 20 ML VIAL IV ONE ×2 (11:25→11:27)
[2024-09-18] MEDS ORDERED: MIDAZOLAM HCL 1 MG/ML 2ML VIAL ONE (11:26)
[2024-09-18] MEDS ORDERED: fentaNYL citrate PF 100 MCG/2 ML VIAL ONE (11:26)
--- NOTE | 2024-09-18 11:41 | History & Physical Bridge Note ---
Date of Service September 18, 2024 History & Physical Bridge Note I have examined the patient, reviewed the History & Physical and in the interval since the performance of the History & Physical I have noted the following changes of clinical significance: no changes noted plan for cysto, ureteroscopy (left), stone treatment, and stent risks, benefits, and expectations reviewed
[2024-09-18] MEDS ORDERED: ROCURONIUM BROMIDE 10 MG/ML 5 ML VIAL IV ONE (11:44)
[2024-09-18] MEDS ORDERED: SUCCINYLCHOLINE CHLORIDE 20 MG/ML 10 ML VIAL IV ONE (11:44)
--- NOTE | 2024-09-18 12:25 | Operative Report ---
PG Post Operative Report Pre & Post Diagnosis Operation Date: 09/18/24 12:00 Pre-Op Diagnosis: Ureteropelvic junction calculus Post-Op Diagnosis: Ureteropelvic junction calculus I identified the patient and participated in the time-out.: Yes Procedure Operation Date: 09/18/24 12:00 Actual Procedures p Cystoscopy Left Ureteroscopy, Stent Placement(Left) - Enoc Mallory MD Surgeon Enoc Mallory MD Manager Non Profit none Estimated Blood Loss 0 Findings Consistent with Post-Op Diagnosis Specimens none Description of Procedure The patient was identified in the preoperative holding area, appropriate informed consents were reviewed and completed and the patient was transferred to the operative suite. Upon arrival, appropriate antibiotics and anesthesia were administered and the patient was placed in dorsal lithotomy position and prepped and draped in sterile fashion. We in the case to pass 21 [place] cystoscope with 30 degree lens. Inspection revealed a healthy appearing bladder with ureteral orifices in orthotopic position. A term attention the left UO and cannulated with a sensor wire. The wire advanced the kidney without difficulty. I used a 10 [place] double-lumen catheter and advanced it maximally. I then placed a second wire through it. I utilized 1 wire as a safety wire and advanced a flexible ureteroscope over the other. I met resistance in the proximal ureter could not advance the scope further. I expected to see a stone in this location but full inspection revealed that it was simply narrowed ureter. This is not a stricture I think it is a natural occurrence that her ureter does not quite accommodate the scope. In turn, I withdrew the scope and replaced the 10 [place] double-lumen to allow some time for passive dilation. I again attempted to advance the scope but I could not pass it beyond this area. At that time I elected to conclude the case by placing a 6 [place] by 24 cm double-J stent. We allow passive dilation with a stent return in a week to treat her stone. She was reversed of anesthesia and taken to the recovery room in stable condition. There were no complications. I attest to the content of the Intraoperative Record and any orders documented therein. Any exceptions are noted below.
--- NOTE | 2024-09-18 12:59 | Anesthesiology Progress Note ---
Date of Service September 18, 2024 Anesthesia Post Procedure Vital Signs Vital Signs: Temp Pulse Pulse Resp BP BP Pulse Ox 09/18/24 12:32 36 C L 64 18 141/83 H 100 09/18/24 10:36 36.9 C 68 20 146/74 H 96 09/18/24 07:20 36.7 C 66 16 105/70 96 09/17/24 14:08 36.7 C 54 L 16 105/66 97 O2 Del Method O2 Flow Rate 09/18/24 12:32 Oxymask 6 09/18/24 10:36 Room Air 09/18/24 07:20 Room Air 09/17/24 14:08 Room Air Pain Intensity Left Flank: Pain Intensity: 4 Transfer of Care Handoff Completed per policy Notes Mental Status: alert / awake / arousable Patient Amnestic to Procedure: Yes Nausea / Vomiting: adequately controlled Pain: adequately controlled Airway Patency, RR, SpO2: stable & adequate BP & HR: stable & adequate Hydration State: stable & adequate Anesthetic Complications: no major complications apparent and Pt Satisfied with anesthetic care
[2024-09-18] MEDS: ACETAMINOPHEN 325 MG TAB PO PRN (14:09)
[2024-09-18] MEDS: HYDROmorphone INJ 1 MG/ML SYRINGE IV PRN (15:00)
--- NOTE | 2024-09-18 15:47 | Hospitalist Progress Note ---
Date of Service September 18, 2024 Assessment & Plan (1) Ureteropelvic junction calculus: (2) Hypokalemia: Plan Dina Acosta is a 34-year-old female with past medical history significant for PCOS, hyperinsulinemia, severe obesity s/p gastric bypass surgery [07/2024] complicated by postoperative ileus, intestinal postoperative absorption, left- sided low back pain with left-sided sciatica, history of migraines and ROSANNE/depression who presented to the ED on 09/17/2024 with complaints of left-sided flank pain and nausea. Obstructive Left Ureteropelvic Junction Calculus Status post cystoscopy with left stent placement Patient presented to the hospital with left flank pain and nausea. No leukocytosis CTAP --> 5mm left uteropelvic junction calculus resulting in mild left hydronephrosis with delayed nephrogram, trace left perinephric stranding. UA with trace leukocyte esterase; no evidence of urine bacteria. Will monitor overnight; continue pain meds and Flomax. Antibiotic discontinued Encourage oral hydration Hypokalemia:repleted Other Chronic Medical Conditions: * Anxiety/Depression - Continue Lexapro. H/O Migraines - Continue Topamax. * H/O Gastric Bypass Surgery - Continue omeprazole, vitamin B complex + multivitamin. DVT Prophylaxis: SCDs Code Status: FULL CODE PCP: Cinthya Hatfield, Disposition: Possible DC in a.m. depending on pain control. Please note the above document was generated using voice recognition software. It may contain grammatical, syntax or spelling errors. Any formal questions or concerns about the content, text or information contained within the body of this dictation should be directly addressed to the provider for clarification Admission and Anticipated Discharge Date Admission Date: September 17, 2024 Subjective Patient seen and examined after cystoscopy and left stent placement. She was reporting some discomfort on left flank; no nausea or vomiting. Vital signs remained stable Review of Systems Review of Systems: All systems reviewed & are unremarkable except as noted in Subjective Physical Exam Physical Exam: Constitutional: WD/WN, vitals as above, NAD, sitting up in bed, pleasant, conversing easily Respiratory: normal respiratory effort, lungs clear to auscultation, no wheeze, rales, rhonchi. Normal insp/exp effort, no accessory muscle use Cardiovascular: RRR, no murmur, no edema Vessels: no JVD or carotid bruit Chest: normal inspection of chest Abdomen: Mild tenderness in left flank. Musculoskeletal: no cyanosis or clubbing, extremities motor strength 5/5 Skin: no rashes, warm and dry normal turgor Neurologic: PERRL, EOMI, accommodation nl, no face palsy, no dysarthria CN's II- XI intact bilaterally and moves all extremities Psychiatric: A+Ox3, euthymic affect Results & Data Results & Data Vital Signs (Past 12 Hours) Vital Signs Temp Pulse Pulse Resp BP BP Pulse Ox 09/18/24 15:00 36.6 C 56 L 16 139/78 93 09/18/24 14:30 36.8 C 63 16 124/76 96 09/18/24 14:00 36.8 C 20 99/61 L 97 09/18/24 13:00 36.8 C 70 15 130/67 100 09/18/24 12:50 66 18 136/80 99 09/18/24 12:40 56 L 15 137/73 100 09/18/24 12:32 36 C L 64 18 141/83 H 100 09/18/24 10:36 36.9 C 68 20 146/74 H 96 09/18/24 07:20 36.7 C 66 16 105/70 96 O2 Del Method O2 Flow Rate 09/18/24 15:00 Room Air 09/18/24 14:30 Room Air 09/18/24 14:00 Room Air 09/18/24 13:00 Room Air 09/18/24 12:50 Room Air 09/18/24 12:40 Oxymask 3 09/18/24 12:32 Oxymask 6 09/18/24 10:36 Room Air 09/18/24 07:20 Room Air
[2024-09-18] MEDS: POTASSIUM CHLORIDE CRTAB 20 MEQ TABCR PO STA (16:10)
--- NOTE | 2024-09-18 19:31 | Fluoroscopy Report ---
FL retrograde includes kub CLINICAL HISTORY: LT CYSTO/STENT TECHNIQUE: 2 views were obtained with the C-arm in the OR with the above procedure. Total fluoroscopy time was 14.6 seconds. Radiation dose was 7.28 mGy. Comparison: Comparison is made to CT abdomen pelvis 09/17/2024 FINDINGS/IMPRESSION: Intraoperative images were obtained of left cystogram and stent placement. In th e final images, the stent is in satisfactory position. Please correlate with intraoperative fluoroscopy and operative report. ACT 112: Negative or not required by law. Electronically signed by: Erick Roman M.D. 09/18/2024 7:30 PM
[2024-09-18] MEDS: ACETAMINOPHEN 1,000 MG/100 ML VIAL IV PRN (19:35)
[2024-09-19 07:49] LABS: Basophils # (auto) 0.03 K/uL (0.00-0.20); Basophils % (auto) 0.8 %; Eosinophils # (auto) 0.07 K/uL (0.00-0.50); Eosinophils % (auto) 1.8 %; Hematocrit (blood only) 39.3 % (37.0-47.0); Hemoglobin 13.8 g/dl (12.0-16.0); Lymphocytes # (auto) 1.86 K/uL (1.20-3.40); Lymphocytes % (auto) 46.7 %; Mean Corpuscular Hemoglobin 29.4 pg (25.0-34.0); Mean Corpuscular Hgb Conc 35.1 g/dL (32.0-36.0); Mean Corpuscular Volume 83.6 fL (80.0-100.0); Mean Platelet Volume 13.4 fL (9.4-12.4); Monocytes # (auto) 0.44 K/uL (0.11-0.59); Monocytes % (auto) 11.1 %; Neutrophils # (auto) 1.58 K/uL (1.40-6.50); Neutrophils % (auto) 39.6 %; Platelet Count 212 K/uL (130-400); RDW Coefficient of Variation 15.7 % (11.5-14.5); RDW Standard Deviation 48.4 fL (36.4-46.3); White Blood Count 3.98 K/ul (4.8-10.8)
[2024-09-19 08:12] VITALS: BP 108/71; PULSE 60; RESP 18; TEMP 98.1; O2SAT 97
[2024-09-19 08:12] LABS: Calcium 8.7 mg/dl (8.6-10.3); Creatinine Clr Calc Pharmacy 192.2 ml/min; Potassium 3.6 mmol/L (3.5-5.1)
--- NOTE | 2024-09-19 09:49 | Discharge Summary ---
Date of Service September 19, 2024 Admission HPI Per Admitting Provider Dina Acosta is a 34-year-old female with past medical history significant for PCOS, hyperinsulinemia, severe obesity s/p gastric bypass surgery [07/2024] complicated by postoperative ileus, intestinal postoperative absorption, left- sided low back pain with left-sided sciatica, history of migraines and ROSANNE/depression who presented to the ED on 09/17/2024 with complaints of left-sided flank pain and nausea. History obtained from the patient and associated chart review. Patient seen at bedside in the ED with Dr. Olivares. Patient with notable left-sided flank pain and nausea which started around 4AM this morning. CTAP in the ED revealed a 5mm left ureteropelvic junction calculus resulting in mild left hydronephrosis with delayed nephrogram area in addition to trace left perinephric stranding. No prior history of kidney stones per the patient. Most recent meal was last evening; poor oral intake today secondary to the pain and nausea. S/p 4mg IV morphine, 0.5mg IV Dilaudid and 1g IV Tylenol in the ED. Pain somewhat improved since presentation however is still 6-7/10. No episodes of vomiting since arrival to the ED however she does remain intermittently nauseous. She did not take any of her home medications this morning. No other abdominal surgeries except for the gastric bypass she had last July as per above. No reported fevers. Denies any diarrhea. No history of smoking or frequent alcohol use. Patient is still doing the bariatric diet - currently on stage III. Admission Exam Per Admitting Provider GENERAL APPEARANCE: AxOx4, uncomfortable woman 2/2 pain HEENT: NC, AT. MMM. EOMI, clear conjunctiva HEART: Normal rate and regular rhythm, normal S1/S1, no m/r/g LUNGS: CTAB, moving air well. No crackles or wheezes are heard. ABDOMEN: Soft, nontender, nondistended with good bowel sounds heard BACK:.declined CVA exam 2/2 active flank pain EXTREMITIES: Without cyanosis, clubbing or edema. NEUROLOGICAL: Grossly nonfocal. Alert and oriented, moving all 4 extremities. CN not formally tested but appear grossly intact Skin: Warm and dry without any rash Principal Diagnosis Obstructive Left Ureteropelvic Junction Calculus Status post cystoscopy with left stent placement Discharge Exam Constitutional: WD/WN, vitals as above, NAD, sitting up in bed, pleasant, conversing easily Respiratory: normal respiratory effort, lungs clear to auscultation, no wheeze, rales, rhonchi. Normal insp/exp effort, no accessory muscle use Cardiovascular: RRR, no murmur, no edema Vessels: no JVD or carotid bruit Chest: normal inspection of chest Abdomen: Mild tenderness in left flank. Musculoskeletal: no cyanosis or clubbing, extremities motor strength 5/5 Skin: no rashes, warm and dry normal turgor Neurologic: PERRL, EOMI, accommodation nl, no face palsy, no dysarthria CN's II- XI intact bilaterally and moves all extremities Psychiatric: A+Ox3, euthymic affect Discharge Data Allergies Allergy/AdvReac Type Severity Reaction Status Date / Time cephalexin [From Keflex] Allergy Severe difficulty Verified 02/14/24 10:08 breathing/itchy amoxicillin Allergy Unknown HAPPENED Verified 02/14/24 10:08 AN diphenhydramine AdvReac Intermediate LEG PAIN Verified 02/14/24 10:08 Consultations 09/17/24 10:01 ED Decision to Admit Stat 09/17/24 10:28 Consult Urology Routine Procedures Performed Operation Date: 09/18/24 12:00 Actual Procedures p Cystoscopy, Left Ureteroscopy, Left Stent Placement(Left) - Enoc Mallory MD Ordered Studies 09/17/24 07:03 CT abd pelvis IV con only Stat 09/18/24 [place] retrograde includes kub Routine Hospital Course (1) Ureteropelvic junction calculus: (2) Hypokalemia: Moriah Acosta is a 34-year-old female with past medical history significant for PCOS, hyperinsulinemia, severe obesity s/p gastric bypass surgery [07/2024] complicated by postoperative ileus, intestinal postoperative absorption, left- sided low back pain with left-sided sciatica, history of migraines and ROSANNE/depression who presented to the ED on 09/17/2024 with complaints of left-sided flank pain and nausea. Obstructive Left Ureteropelvic Junction Calculus Status post cystoscopy with left stent placement Patient presented to the hospital with left flank pain and nausea. No leukocytosis CTAP --> 5mm left uteropelvic junction calculus resulting in mild left hydronephrosis with delayed nephrogram, trace left perinephric stranding. UA with trace leukocyte esterase; no evidence of urine bacteria. Patient underwent placement of the stent by urology on 09/18/2024; she was observed overnight and discharged in a.m. She was recommended to use Tylenol as needed for pain control and use oxycodone for severe pain. She was also prescribed tamsulosin. Patient to follow-up with urology for definitive stone management as well as her primary care doctor for routine follow-up. Please note the above document was generated using voice recognition software. It may contain grammatical, syntax or spelling errors. Any formal questions or concerns about the content, text or information contained within the body of this dictation should be directly addressed to the provider for clarification Total Time Total Time Spent Total Time Spent (In Minutes): 35 Total Time Includes: Examination of the Patient, Discharge Planning, Medication Reconciliation, Communication With Other Providers and Other Discharge Plan Discharge Items Patient Disposition: Home - Self-Care Reason For Visit: KIDNEY STONE Discharge Diagnosis: Cystoscopy with left ureteroscopy and stent placement Condition on Discharge: Good Activity: Resume your previous activity Non-emergency contact: Primary Care Provider Call non-emergency contact if: you have any medication questions and your s ymptoms worsen Follow-up/Referrals: Cinthya Hatfield, [Primary Care Provider] - Diet: Regular Addtl Attending Provider Instructions: You were admitted to the hospital due to stone in your left ureter; you underwent stent placement by Dr. Mallory from urology. Follow up with Dr. Mallory on Saturday. Please take Tylenol as needed for pain control. If the pain is very severe; you can take oxycodone as needed. You are prescribed tamsulosin which relaxes the muscles of the ureter. An appointment will be set up with your primary care doctor for next week for routine follow-up. Pending Studies at Discharge: No Stand-Alone Forms: [facility] - Opioid Pain Management, Smoking Cessation Medications and DC Order Prescriptions: New tamsulosin 0.4 mg Capsule 0.4 mg PO QAM 30 Days Qty: 30 0RF oxycodone 5 mg tablet 5 mg PO DAILY PRN (Reason: pain) Qty: 10 0RF Continued topiramate [Topamax] 25 mg tablet 25 mg PO BID escitalopram oxalate 10 mg tablet 10 mg PO DAILY omeprazole 20 mg capsule,delayed release(DR/EC) 20 mg PO DAILY vitamin B complex Capsule 1 cap PO DAILY multivitamin Tablet,Chewable 1 tab PO BID Discharge Orders: Discharge Order (Routine); Ordered 09/19/24 Ordered By: Jose E Bowden/Other Patient Handouts: DVT Post Op Prevention Admission Data Admit Date/Time: 09/17/24 10:27 Attending Provider: Jose E Kaufman Admit Provider: Oneyda Olivares Primary Care Provider: Cinthya Hatfield Other Providers: Oneyda Olivares; Yobani Pinto Other Interventions: Discharge Summary Assessment (RN) Last Done: 09/19/24 12:49
--- NOTE | 2024-09-19 10:34 | Urology Progress Note ---
Date of Service September 19, 2024 Assessment & Plan (1) Ureteropelvic junction calculus: Plan Status post left ureteral stent placement for left proximal ureteral calculus She has surgery scheduled on Saturday to definitively treat the stone No intervention planned now, please discharge her home and she can follow-up as an outpatient for the surgery She did ask me about possible underlying causes of her stone development Topamax is likely at the top of that list but gastric surgery also can contribute Admission and Anticipated Discharge Date Admission Date: September 17, 2024 Subjective Postop day #1 status post left ureteral stent placement Doing well today Subjectively feels appropriate after the stent placement She is scheduled for surgery on Saturday afternoon and is stable for discharge home today Results & Data Vital Signs (Past 12 Hours) Vital Signs Temp Pulse Pulse Resp BP BP Pulse Ox 09/19/24 07:50 36.7 C 60 18 108/71 97 09/19/24 02:43 36.6 C 54 L 16 125/76 95 09/18/24 22:52 36.7 C 50 L 16 99/59 L 96 O2 Del Method 09/19/24 07:50 Room Air 09/19/24 02:43 Room Air 09/18/24 22:52 Room Air PG Care Time/CCT Total # of Minutes Spent Total Time Spent with Patient: Total time spent is greater than 50% in coordination of care (as documented) at patient's floor/unit and/or counseling patient: Coding Level of Care Code 14413 SUB INP/OBS CARE 2/35MIN Diagnoses Ureteropelvic junction calculus N20.1
== END 2024-09-19 13:22 | disposition home or self-care (01) | DRG 660 ==
LOC: ED 06:03 → SUATTDRO 10:27 → 3N 10:27

== ENCOUNTER 2024-09-25 16:51 | Inpatient (IN) ==
[2024-09-25] MEDS: ONDANSETRON INJ 2 MG/ML 2 ML VIAL IV STA ×2 (17:14→18:53)
[2024-09-25 17:31] LABS: Basophils # (auto) 0.03 K/uL (0.00-0.20); Basophils % (auto) 0.3 %; Eosinophils # (auto) 0.13 K/uL (0.00-0.50); Eosinophils % (auto) 1.5 %; Hematocrit (blood only) 41.1 % (37.0-47.0); Hemoglobin 14.6 g/dl (12.0-16.0); Immature Granulocytes # (auto) 0.03 K/uL (0.01-0.20); Immature Granulocytes % (auto) 0.3 %; Lymphocytes # (auto) 2.65 K/uL (1.20-3.40); Mean Corpuscular Hgb Conc 35.5 g/dL (32.0-36.0); Mean Corpuscular Volume 81.5 fL (80.0-100.0); Mean Platelet Volume 12.6 fL (9.4-12.4); Monocytes # (auto) 0.79 K/uL (0.11-0.59); Monocytes % (auto) 8.9 %; Platelet Count 282 K/uL (130-400); RDW Coefficient of Variation 15.3 % (11.5-14.5); RDW Standard Deviation 45.5 fL (36.4-46.3); Red Blood Count 5.04 M/uL (4.20-5.40); White Blood Count 8.83 K/ul (4.8-10.8)
[2024-09-25 17:47] LABS: Albumin Globulin Ratio 1.6 (0.9-2); Albumin Level 4.2 gm/dl (3.4-5.0); BUN Creatinine Ratio 25.3 (10-20); Bilirubin,Total 0.6 mg/dl (0.2-1.0); Calcium 9.1 mg/dl (8.6-10.3); Creatinine Clr Calc Pharmacy 144.3 ml/min; Globulin 2.6 gm/dl (2.5-4.0); Potassium 3.8 mmol/L (3.5-5.1); Total Protein 6.8 gm/dl (6.0-8.3)
[2024-09-25 17:51] LABS: Pregnancy Test, Serum Negative (Negative)
[2024-09-25] MEDS: SODIUM CHLORIDE 0.9% 1,000 ML IV SCH ×2 (18:52→22:07)
--- NOTE | 2024-09-25 18:52 | Emergency Department Note ---
Impression & Plan Acute left flank pain, History of removal of ureteral stent ED Provider Note CHIEF COMPLAINT: Worsening left flank pain x 1 day HISTORY OF PRESENT ILLNESS: Patient is a 34-year-old for PCOS, anxiety, GERD and migraine disorder who returns to the emergency department for evaluation of continued left flank pain. She was seen and evaluated here on 09/17 for left flank pain, and found to have a large left-sided UPJ stone. She was admitted and taken to the OR by urology and had a stent placed. She was discharged, then went back to the OR for outpatient ureteroscopy, lithotripsy and stone extraction on 09/22. Patient reports that she was managing her pain with Tylenol. She did have the stent removed at the urology office yesterday. Stent was apparently removed without difficulty but no urology note is available. Patient states that today, the left flank pain has gotten worse. It is all in the left back. It does not radiate. She states the Tylenol that had been helping further. Pain was not working today. She tried a 5 mg dose of oxycodone, also without relief. She called urology and they referred her to the ED. She currently rates her pain a 9/10. She does reports she is passing urine, states that it is smaller amounts, and is sometimes blood-tinged. She has nauseous, has not vomited today. She is finishing ciprofloxacin. She is taking Flomax as prescribed. She is tried heat on her back, without relief. REVIEW OF SYSTEMS: Review of systems as per HPI. All other systems reviewed were negative. 10 systems reviewed. PMH: External medical records are reviewed and summarized as above/below. See Problem List. SOCIAL HISTORY: Patient lives at home. Employed. PHYSICAL EXAM: Vital Signs: Reviewed Nurse's notes. CONSTITUTIONAL: Patient is a morbidly obese 34-year-old female who is awake and alert and uncomfortable appearing, seated on the gurney. Mom is at the bedside. EYES: Pupils equal, round, reactive to light and accommodation. EOMs intact without nystagmus. Sclera are anicteric. CARDIOVASCULAR: Regular rate and rhythm. Peripheral pulses easily palpable. RESPIRATORY: Breath sounds equal and clear to auscultation. ABDOMEN: Bowel sounds are present. The abdomen is soft, obese, nontender and nondistended. No guarding or rebound. Left flank tenderness to percussion. She does have erythema of the left flank from the heat pad. INTEGUMENTARY: No lesions or rash, normal skin turgor. LYMPH: No lymphadenopathy. EMERGENCY DEPARTMENT COURSE: The patient was seen and assessed as above. External medical records are reviewed. She presents to the emergency department for evaluation of worsening left flank pain in the setting of a recent cystoscopy, ureteroscopy, lithotripsy and stone extraction with stent placement. Stent was removed yesterday. She is afebrile. She is passing urine. Critical pathways were implemented from triage, including CBC with differential, CMP, lipase, urinalysis and serum hCG. She was given Zofran IV per protocols. I fully examined her when she was placed in room D3. After my exam, she was treated with IV Toradol 15 mg, morphine 6 mg and additional dose of Zofran, and a liter bolus of normal saline solution. CT scan of the abdomen and pelvis with IV contrast was ordered to evaluate her left flank pain. Diagnostics, as interpreted by me: Laboratory studies: Normal white count at 8800. No left shift noted. No anemia or thrombocytopenia. Electrolytes within normal limits. Renal functions not elevated. Transaminases and lipase are normal. test negative. Urine microscopy notes Imaging studies: CT scan of the abdomen and pelvis with IV contrast notes mild left kidney hydronephrosis without hydroureter. Delayed nephrogram with perinephric stranding. 2 nonobstructing left kidney lower pole stones, measuring up to 3 mm. Patient was reassessed when she returned from CT and reported no improvement in her pain. She was given additional dose of morphine 8 mg IV. Patient reviewed with attending physician Dr. Hoff. Patient's ED presentation was discussed with Dr. Sánchez with urology via [employer]. He feels that CT findings are expected postoperative ureteral edema from the stent removal. He feels that it is unlikely to be infection. He recommended pain management, otherwise she would need to have the stent replaced. No need for emergent urologic intervention at this time. All laboratory and diagnostic imaging studies reviewed with the patient and her mother at length. She is mildly more comfortable with the second dose of morphine, but still having pain. Reviewed my discussion with Dr. Sánchez. Discussed options including a trial of home management and reviewed medications to be used for pain management at home, versus admission/observation for further inpatient care and pain management. After consideration of both options, patient prefers the latter. She is concerned that she will not be able to manage her pain at home. Patient discussed with ED transplant case manager. IV antibiotics were held pending hospitalist evaluation. Consultation placed with the [facility] hospitalist service, and patient reviewed with Dr. Lujan. Please refer to admission H&P and orders for further care information. Differential diagnosis: Urinary tract infection, pyelonephritis, hydronephrosis, ureteral spasm, postoperative pain, renal colic, abscess, postoperative bleeding/hemorrhage, perforation, among others. Past Med/Surg History Problem List (Updated 09/25/24 @ 20:40 by Alexandrea Flores) History of removal of ureteral stent (Acute) Acute left flank pain (Acute) Ureteropelvic junction calculus (Acute) Encounter for pre-operative examination GERD (gastroesophageal reflux disease) (Chronic) Anxiety (Chronic) PCOS (polycystic ovarian syndrome) (Chronic) Migraine (Chronic) Medical History Morbid obesity Insulin resistance Hx of gastroesophageal reflux (GERD) Anxiety PCOS (polycystic ovarian syndrome) Hx of migraines Improved after gastric bypass Hx of seizure disorder As child, most recent 2019 after EGD Patient reports taking topamax for migraines Ureteropelvic junction calculus Surgical History History of anesthesia reaction (2019) Seizure after EGD 2020 at [facility] in 2019- no seizures since Hx of gastric bypass (07/25/24) [facility] S/P cystoscopy with ureteral stent placement (09/18/24) History of root canal procedure Hx of wisdom tooth extraction Hx of tonsillectomy History of esophagogastroduodenoscopy (EGD) Family History Sister Family history of diabetes mellitus Aunt Family history of diabetes mellitus Uncle Family history of diabetes mellitus Grandmother (Maternal) Family hx colonic polyps Other No family history of adverse response to anesthesia Social History Smoking Status: Never smoker Second Hand Exposure: No; Do You Dip or Chew Tobacco: No; Hx Alcohol Use: No Hx Substance Use: No Preferred Language: Kyrgyz Communication Ability: Effective Medical Transcription Radiology Required: No Beliefs That Will Affect Care: None Current Living Situation: Family Current Living Situation Comment: grandmother Feels Safe at Home: Yes Assistive Devices: Contacts and Glasses Allergies Allergies Allergy/AdvReac Type Severity Reaction Status Date / Time cephalexin [From Keflex] Allergy Severe Difficulty Verified 09/22/24 15:00 breathing, itchy amoxicillin Allergy Unknown Happened Verified 09/22/24 15:00 as infant diphenhydramine AdvReac Intermediate Leg pain Verified 09/22/24 15:00 Home Meds Home Medications Medication Instructions Recorded Confirmed topiramate 25 mg tablet (Topamax) 25 mg PO BID 08/22/18 09/22/24 escitalopram oxalate 10 mg tablet 10 mg PO QAM 02/14/24 09/22/24 multivitamin 1 tab PO BID 09/17/24 09/22/24 omeprazole 20 mg capsule,delayed 20 mg PO QAM 09/17/24 09/22/24 release vitamin B complex 1 cap PO DAILY 09/17/24 09/22/24 polyethylene glycol 3350 17 gram 17 g PO Q OTHER DAY 09/22/24 09/22/24 oral powder packet (Miralax) Previous Rx's Medication Instructions Recorded tamsulosin 0.4 mg capsule 0.4 mg PO QAM 30 days #30 caps 09/19/24 ciprofloxacin HCl 500 mg tablet 500 mg PO BID #6 tabs 09/22/24 (Cipro) oxybutynin chloride 5 mg tablet 5 mg PO BID PRN bladder spasms #20 09/25/24 tabs oxycodone 5 mg tablet 5 mg PO BID PRN pain #7 tabs 09/25/24 Results & Data (ED) Vital Signs Vital Signs - 24 hr 09/25/24 16:52 09/25/24 16:52 09/25/24 18:31 Temperature 36.6 C Temperature Source Temporal Artery Scan Pulse Rate 99 H Pulse Rate [Left Finger] 82 Respiratory Rate 18 18 18 Blood Pressure 170/98 H Blood Pressure [Right Arm] 180/105 H Blood Pressure Mean 122 Blood Pressure Mean [Right Arm] 130 Pulse Oximetry 99 98 Oxygen Delivery Method Room Air Room Air Sepsis Recent Fever Within 48 Hours No Sepsis New/Unexplained Change in Mental Status N/A Sepsis Action Taken by Nursing No Action Required Laboratory Data 09/25/24 17:10 09/25/24 17:10 Lab Results 09/25/24 09/25/24 Range/Units 17:10 18:56 WBC 8.83 (4.8-10.8) K/ul RBC 5.04 (4.20-5.40) M/uL Hgb 14.6 (12.0-16.0) g/dl Hct 41.1 (37.0-47.0) % MCV 81.5 (80.0-100.0) fL MCH 29.0 (25.0-34.0) pg MCHC 35.5 (32.0-36.0) g/dL RDW Std Deviation 45.5 (36.4-46.3) fL RDW Coeff of Abdi 15.3 H (11.5-14.5) % Plt Count 282 (130-400) K/uL MPV 12.6 H (9.4-12.4) fL Immature Gran % (Auto) 0.3 % Neut % (Auto) 59.0 % Lymph % (Auto) 30.0 % Bailey % (Auto) 8.9 % Eos % (Auto) 1.5 % Baso % (Auto) 0.3 % Neut # (Auto) 5.20 (1.40-6.50) K/uL Lymph # (Auto) 2.65 (1.20-3.40) K/uL Bailey # (Auto) 0.79 H (0.11-0.59) K/uL Eos # (Auto) 0.13 (0.00-0.50) K/uL Baso # (Auto) 0.03 (0.00-0.20) K/uL Immature Gran # (Auto) 0.03 (0.01-0.20) K/uL Sodium 139 (136-145) mmol/L Potassium 3.8 (3.5-5.1) mmol/L Chloride 104 (98-107) mmol/L Carbon Dioxide 26 (21-32) mmol/L Anion Gap 9 (3-11) BUN 22 (6-23) mg/dl Creatinine 0.87 (0.6-1.2) mg/dl Est Cr Clr Drug Dosing 144.3 ml/min eGFR 89.60 BUN/Creatinine Ratio 25.3 H (10-20) Glucose 96 (70-99(Fasting)) mg/dl Calcium 9.1 (8.6-10.3) mg/dl Total Bilirubin 0.6 (0.2-1.0) mg/dl AST 11 L (13-39) U/L ALT 14 (7-52) U/L Alkaline Phosphatase 67 (34-104) U/L Total Protein 6.8 (6.0-8.3) gm/dl Albumin 4.2 (3.4-5.0) gm/dl Globulin 2.6 (2.5-4.0) gm/dl Albumin/Globulin Ratio 1.6 (0.9-2) Lipase 25 (11-82) U/L HCG, Qual Negative (Negative) Urine Color Yellow Urine Appearance Cloudy A (Clear) Urine pH 5.0 (4.5-7.5) Ur Specific [place] 1.040 H (1.000-1.030) Urine Protein 2+ H (Negative) Urine Glucose (UA) Negative (Negative) Urine Ketones 2+ H (Negative) Urine Blood 3+ H (Negative) Urine Nitrite Negative (Negative) Urine Bilirubin Negative (Negative) Urine Urobilinogen Negative (Negative) Ur Leukocyte Esterase 2+ H (Negative) Urine WBC (Auto) >50 H (0-5) /hpf Urine RBC (Auto) >20 H (0-2) /hpf U Hyaline Cast (Auto) 0-2 (0-2) /lpf U Epithel Cells (Auto) 0-2 (0-2) /hpf Urine Bacteria (Auto) None Seen (None Seen) Administered Medications Discontinued Medications Sodium Chloride (Nss) 1,000 mls @ 999 mls/hr IV .Q1H1M [facility] Stop: 09/25/24 19:45 Last Infusion: 09/25/24 19:54 Dose: Infused Documented By: Admin: 09/25/24 18:52 Dose: 999 mls/hr Documented By: JAYLYN Ioversol (Optiray 320 125ml) 112 ml IV ONCE ONE Stop: 09/25/24 19:28 Last Admin: 09/25/24 19:28 Dose: 112 ml Documented By: YARI Ketorolac Tromethamine (Ketorolac Tromethamine 15 Mg/Ml Vial) 15 mg IV NOW STA Stop: 09/25/24 18:46 Last Admin: 09/25/24 18:53 Dose: 15 mg Documented By: JAYLYN Morphine Sulfate (Morphine Sulfate 10 Mg/Ml Carp/Vial) 6 mg IV NOW STA Stop: 09/25/24 18:46 Last Admin: 09/25/24 18:54 Dose: Not Given Documented By: JAYLYN Morphine Sulfate (Morphine Sulfate 4 Mg/Ml 1 Ml Carp\\Vial) Confirm Administered Dose 4 mg .ROUTE .STK-MED ONE Stop: 09/25/24 18:50 Last Admin: 09/25/24 18:53 Dose: 4 mg Documented By: JAYLYN Morphine Sulfate (Morphine Sulfate 2 Mg/Ml Carp) Confirm Administered Dose 2 mg .ROUTE .STK-MED ONE Stop: 09/25/24 18:50 Last Admin: 09/25/24 18:53 Dose: 2 mg Documented By: JAYLYN Morphine Sulfate (Morphine Sulfate 10 Mg/Ml Carp/Vial) 8 mg IV NOW STA Stop: 09/25/24 19:45 Last Admin: 09/25/24 20:08 Dose: 8 mg Documented By: KIAN Ondansetron HCl (Ondansetron Inj 2 Mg/Ml 2 Ml Vial) 4 mg IV NOW STA Stop: 09/25/24 17:07 Last Admin: 09/25/24 17:14 Dose: 4 mg Documented By: RITESH Ondansetron HCl (Ondansetron Inj 2 Mg/Ml 2 Ml Vial) 4 mg IV NOW STA Stop: 09/25/24 18:46 Last Admin: 09/25/24 18:53 Dose: 4 mg Documented By: JAYLYN Imaging Data Radiologist's Impression: Abdomen/Pelvis CT 09/25/24 18:45 Exam(s): CT ABDOMEN + PELVIS With Contrast IV Amt: 112ml optiray 320 EXAM: CT Abdomen and Pelvis With Intravenous Contrast CLINICAL HISTORY: Reason for exam: LEFT FLANK PAIN, RECENT STONE/STENT REMOVED YESTER. TECHNIQUE: Axial computed tomography images of the abdomen and pelvis with intravenous contrast. CTDI is 28 mGy and DLP is 1634 mGy-cm. Automated exposure control was utilized for the study. A dose lowering technique was utilized adhering to the principles of ALARA. CONTRAST: Patient received 112ml optiray 320 of IV contrast COMPARISON: 09/17/24 FINDINGS: Lung bases: Unremarkable. ABDOMEN: Liver: Unremarkable. No mass. Gallbladder and bile ducts: Unremarkable. No calcified stones. No ductal dilation. Pancreas: Unremarkable. No mass. No ductal dilation. Spleen: Unremarkable. No splenomegaly. Adrenals: Unremarkable. No mass. Kidneys and ureters: Mild left kidney hydronephrosis without hydroureter. Diminished/delayed enhancement of the left kidney with perinephric stranding. There are 2 nonobstructing left kidney lower pole stones, largest 3 mm. Right kidney and collecting system are normal. Stomach and bowel: Postoperative changes of the stomach. No bowel obstruction. No mucosal thickening. PELVIS: Appendix: Appendix not identified. No secondary signs of appendicitis. Bladder: Decompressed urinary bladder, limiting evaluation. Reproductive: Unremarkable as visualized. ABDOMEN and PELVIS: Intraperitoneal space: Unremarkable. No free air, significant free fluid, or fluid collection. Bones/joints: Degenerative changes in the lumbar spine. No acute fracture or dislocation. Soft tissues: Unremarkable. Vasculature: Unremarkable. No abdominal aortic aneurysm. Lymph nodes: Unremarkable. No enlarged lymph nodes. IMPRESSION: 1. Mild left kidney hydronephrosis without hydroureter. Diminished/delayed enhancement of the left kidney with perinephric stranding. Overall appearance could represent a degree of UPJ obstruction (possibly due to stricture) versus pyelonephritis. Correlate with urinalysis. 2. There are 2 nonobstructing left kidney lower pole stones, largest 3 mm. Electronically signed by: Melva Santiago M.D. 09/25/24 19:57 PM Discharge Plan Visit Data Chief Complaint: Flank Pain Stated Complaint: LT KIDNEY PAIN, STONE REMOVED TU ED Provider: Sebas Hoff ED Midlevel Provider: Alexandrea Flores Discharge Problem: Acute left flank pain, History of removal of ureteral stent Patient Disposition: Being Evaluated by Hospitalist Forms Stand Alone Forms: [facility] Prescriptions Prescriptions: No Action oxybutynin chloride 5 mg tablet 5 mg PO BID PRN (Reason: bladder spasms) Qty: 20 1RF oxycodone 5 mg tablet 5 mg PO BID PRN (Reason: pain) Qty: 7 0RF topiramate [Topamax] 25 mg tablet 25 mg PO BID escitalopram oxalate 10 mg tablet 10 mg PO QAM polyethylene glycol 3350 [Miralax] 17 gram Powder In Packet 17 g PO Q OTHER DAY ciprofloxacin HCl [Cipro] 500 mg tablet 500 mg PO BID Qty: 6 0RF omeprazole 20 mg capsule,delayed release(DR/EC) 20 mg PO QAM vitamin B complex Capsule 1 cap PO DAILY multivitamin Tablet,Chewable 1 tab PO BID tamsulosin 0.4 mg Capsule 0.4 mg PO QAM 30 Days Qty: 30 0RF Referrals Referrals: Cinthya Hatfield DO [Primary Care Provider] -
[2024-09-25] MEDS: KETOROLAC TROMETHAMINE 15 MG/ML VIAL IV STA (18:53)
[2024-09-25] MEDS: MoRPHine SULFATE 4 MG/ML 1 ML CARP\\VIAL ONE (18:53)
[2024-09-25] MEDS: MoRPHine SULFATE 2 MG/ML CARP ONE (18:53)
[2024-09-25] MEDS: MoRPHine SULFATE 10 MG/ML CARP/VIAL IV STA ×2 (18:54→20:08)
[2024-09-25] MEDS: OPTIRAY 320 125ml IV ONE (19:28)
[2024-09-25 19:30] LABS: Appearance Urine Cloudy (Clear); Bacteria Urine Automated None Seen (None Seen); Bilirubin Urine Negative (Negative); Blood Urine 3+ (Negative); Cast Urine Automated 0-2 /lpf (0-2); Color Urine Yellow; Epithelial Cell Urine Auto 0-2 /hpf (0-2); Glucose Urine UA Negative (Negative); Ketones Urine 2+ (Negative); Leukocyte Esterase Urine 2+ (Negative); Nitrite Urine Negative (Negative); Protein Urine 2+ (Negative); RBC Urine Automated >20 /hpf (0-2); Urobilinogen Urine Negative (Negative); WBC Urine Automated >50 /hpf (0-5)
--- NOTE | 2024-09-25 19:58 | CT Scan Report ---
Exam(s): CT ABDOMEN + PELVIS With Contrast IV Amt: 112ml optiray 320 EXAM: CT Abdomen and Pelvis With Intravenous Contrast CLINICAL HISTORY: Reason for exam: LEFT FLANK PAIN, RECENT STONE/STENT REMOVED YESTER. TECHNIQUE: Axial computed tomography images of the abdomen and pelvis with intravenous contrast. CTDI is 28 mGy and DLP is 1634 mGy-cm. Automated exposure control was utilized for the study. A dose lowering technique was utilized adhering to the principles of ALARA. CONTRAST: Patient received 112ml optiray 320 of IV contrast COMPARISON: 09/17/24 FINDINGS: Lung bases: Unremarkable. ABDOMEN: Liver: Unremarkable. No mass. Gallbladder and bile ducts: Unremarkable. No calcified stones. No ductal dilation. Pancreas: Unremarkable. No mass. No ductal dilation. Spleen: Unremarkable. No splenomegaly. Adrenals: Unremarkable. No mass. Kidneys and ureters: Mild left kidney hydronephrosis without hydroureter. Diminished/delayed enhancement of the left kidney with perinephric stranding. There are 2 nonobstructing left kidney lower pole stones, largest 3 mm. Right kidney and collecting system are normal. Stomach and bowel: Postoperative changes of the stomach. No bowel obstruction. No mucosal thickening. PELVIS: Appendix: Appendix not identified. No secondary signs of appendicitis. Bladder: Decompressed urinary bladder, limiting evaluation. Reproductive: Unremarkable as visualized. ABDOMEN and PELVIS: Intraperitoneal space: Unremarkable. No free air, significant free fluid, or fluid collection. Bones/joints: Degenerative changes in the lumbar spine. No acute fracture or dislocation. Soft tissues: Unremarkable. Vasculature: Unremarkable. No abdominal aortic aneurysm. Lymph nodes: Unremarkable. No enlarged lymph nodes. IMPRESSION: 1. Mild left kidney hydronephrosis without hydroureter. Diminished/delayed enhancement of the left kidney with perinephric stranding. Overall appearance could represent a degree of UPJ obstruction (possibly due to stricture) versus pyelonephritis. Correlate with urinalysis. 2. There are 2 nonobstructing left kidney lower pole stones, largest 3 mm. Electronically signed by: Melva Santiago M.D. 09/25/24 19:57 PM
[2024-09-25] MEDS ORDERED: POLYETHYLENE (MIRALAX) 17 GM PACK PO PRN (21:21)
[2024-09-25] MEDS ORDERED: MoRPHine SULFATE 4 MG/ML 1 ML CARP\\VIAL IV PRN (21:21)
--- NOTE | 2024-09-25 21:48 | History & Physical Report ---
Date of Service September 25, 2024 Assessment & Plan (1) Acute left flank pain: Plan Dina Acosta is a 34-year-old female with past medical history significant for PCOS, hyperinsulinemia, severe obesity s/p gastric bypass surgery [07/2024] complicated by postoperative ileus, intestinal postoperative absorption, left- sided low back pain with left-sided sciatica, history of migraines and ROSANNE/depression Presents to the hospital with left flank pain Recent admission on September 17 for left ureteropelvic junction calculi status post cystoscopy and left stent placement on September 18, 2024. Stent exchanged with definitive stone management on September 22, 2024 Stent removal on September 24, 2024 Left flank pain Recent Urological Procedure Possible UTI/Pyelonephritis Patient presents with acute left flank pain for 2 days. Recent urological procedure as above No leukocytosis BUN/creatinine within normal limits Urinalysis revealed 2+ protein, 3+ blood and greater than 50 WBC in high-power field. CT abdomen pelvis showed mild left kidney hydronephrosis without hydroureter; diminished/delayed enhancement of left kidney with perinephric stranding Pain control with Toradol, oxycodone and morphine as needed. IV fluids. Will start on empiric antibiotic with Azactam; reports history of allergy with cephalosporins/penicillins. Will follow-up on urine culture Will consult urology for further management Depression- continue escitalopram GERD- omeprazole, continue Migrainecontinue on topiramate for the time being; Discussed with patient to follow-up with her primary care doctor regarding topiramate cessation given Renal stones. Full code DVT ProphylaxisSCDs for now Time spent evaluating patient, direct bedside care, chart review, placing orders, interpretation of diagnostic studies, discussion with consultants, patient, and family members, as well as other required patient management activities is 60 minutes Please note the above document was generated using voice recognition software. It may contain grammatical, syntax or spelling errors. Any formal questions or concerns about the content, text or information contained within the body of this dictation should be directly addressed to the provider for clarification History of Present Illness Chief Complaint: Flank pain for 2 days Primary Care Provider: Cinthya Hatfield, DO Past medical history of PCOS, obesity status post gastric bypass, history of migraine, depression. Recent admission from September 17, 2024 to September 19, 2024 for obstructive left ureteropelvic junction calculus status post cystoscopy with left stent placement. After discharge from the hospital, patient followed up on September 22, 2024 to urology for cystoscopy with left ureteral dilation, laser destruction and basket extraction of stone along with exchange of left stent. She then followed up on September 24, 2024 for stent removal. For coming home from urology office yesterday; patient started to experience left flank pain, nonradiating. She denies any fever or chills. She is able to void without any difficulty. She denies any burning sensation or increased urgency. She reports nausea, no vomiting. Patient contacted the urology office; was recommended to go to the ED for further evaluation. On presentation to the ED, patient was normotensive, afebrile and saturating well on room air. CBC did not reveal leukocytosis. BUN/creatinine within normal limits. Urinalysis revealed 2+ protein, 3+ blood and greater than 50 WBC in high-power field. CT abdomen pelvis showed mild left kidney hydronephrosis without hydroureter; diminished/delayed enhancement of left kidney with perinephric stranding. Discussion was done with urology over the phone; patient admitted for observation and pain control. Allergies Allergy/AdvReac Type Severity Reaction Status Date / Time cephalexin [From Keflex] Allergy Severe Difficulty Verified 09/22/24 15:00 breathing, itchy amoxicillin Allergy Unknown Happened Verified 09/22/24 15:00 as infant diphenhydramine AdvReac Intermediate Leg pain Verified 09/22/24 15:00 Home Medications Medication Instructions Recorded Confirmed Type topiramate 25 mg tablet (Topamax) 25 mg PO BID 08/22/18 09/22/24 History escitalopram oxalate 10 mg tablet 10 mg PO QAM 02/14/24 09/22/24 History multivitamin 1 tab PO BID 09/17/24 09/22/24 History omeprazole 20 mg capsule,delayed 20 mg PO QAM 09/17/24 09/22/24 History release vitamin B complex 1 cap PO DAILY 09/17/24 09/22/24 History tamsulosin 0.4 mg capsule 0.4 mg PO QAM 30 days #30 caps 09/19/24 09/22/24 Rx ciprofloxacin HCl 500 mg tablet 500 mg PO BID #6 tabs 09/22/24 Rx (Cipro) polyethylene glycol 3350 17 gram 17 g PO Q OTHER DAY 09/22/24 09/22/24 History oral powder packet (Miralax) oxybutynin chloride 5 mg tablet 5 mg PO BID PRN bladder spasms #20 09/25/24 Rx tabs oxycodone 5 mg tablet 5 mg PO BID PRN pain #7 tabs 09/25/24 Rx Past Med/Surg History Problem List (Updated 09/25/24 @ 20:40 by Alexandrea Flores) History of removal of ureteral stent (Acute) Acute left flank pain (Acute) Ureteropelvic junction calculus (Acute) Encounter for pre-operative examination GERD (gastroesophageal reflux disease) (Chronic) Anxiety (Chronic) PCOS (polycystic ovarian syndrome) (Chronic) Migraine (Chronic) Medical History Morbid obesity Insulin resistance Hx of gastroesophageal reflux (GERD) Anxiety PCOS (polycystic ovarian syndrome) Hx of migraines Improved after gastric bypass Hx of seizure disorder As child, most recent 2019 after EGD Patient reports taking topamax for migraines Ureteropelvic junction calculus Surgical History History of anesthesia reaction (2019) Seizure after EGD 2020 at [facility] in 2019- no seizures since Hx of gastric bypass (07/25/24) [facility] cystoscopy with ureteral stent placement (09/18/24) History of root canal procedure Hx of wisdom tooth extraction Hx of tonsillectomy History of esophagogastroduodenoscopy (EGD) Family History Sister Family history of diabetes mellitus Aunt Family history of diabetes mellitus Uncle Family history of diabetes mellitus Grandmother (Maternal) Family hx colonic polyps Other No family history of adverse response to anesthesia Social History Smoking Status: Never smoker Second Hand Exposure: No; Do You Dip or Chew Tobacco: No; Hx Alcohol Use: No Hx Substance Use: No Preferred Language: Cameroonian Communication Ability: Effective Etl Analyst Developer Required: No Beliefs That Will Affect Care: None Current Living Situation: Family Current Living Situation Comment: grandmother Feels Safe at Home: Yes Assistive Devices: Contacts and Glasses Physical Exam Physical Exam: Constitutional: Alert oriented x 3; in discomfort due to pain. Respiratory: Bilateral vesicular breath sound Cardiovascular: RRR, no murmur, no edema Vessels: no JVD or carotid bruit Chest: normal inspection of chest Abdomen: Left costovertebral angle tender, no tenderness otherwise Musculoskeletal: no cyanosis or clubbing, extremities motor strength 5/5 Skin: no rashes, warm and dry normal turgor Neurologic: PERRL, EOMI, accommodation nl, no face palsy, no dysarthria CN's II- XI intact bilaterally and moves all extremities Psychiatric: A+Ox3, euthymic affect Results & Data Results & Data Vital Signs (Past 12 Hours) Vital Signs Temp Pulse Pulse Resp BP BP Pulse Ox 09/25/24 20:00 69 18 132/74 96 09/25/24 18:31 82 18 180/105 H 98 09/25/24 16:52 18 09/25/24 16:52 36.6 C 99 H 18 170/98 H 99 O2 Del Method 09/25/24 20:00 Room Air 09/25/24 18:31 Room Air 09/25/24 16:52 09/25/24 16:52 Room Air
[2024-09-25] MEDS: AZTREONAM 2,000 MG in DEXTROSE 5% MINI-B 100 ML IV STA (22:06)
[2024-09-25] MEDS: ONDANSETRON INJ 2 MG/ML 2 ML VIAL IV PRN (23:28)
[2024-09-26] MEDS: KETOROLAC TROMETHAMINE 15 MG/ML VIAL IV PRN (05:29)
[2024-09-26] MEDS: AZTREONAM 2,000 MG in DEXTROSE 5% MINI-B 100 ML IV SCH (05:46)
[2024-09-26 07:10] LABS: Basophils # (auto) 0.03 K/uL (0.00-0.20); Basophils % (auto) 0.4 %; Eosinophils # (auto) 0.13 K/uL (0.00-0.50); Eosinophils % (auto) 1.9 %; Hematocrit (blood only) 35.4 % (37.0-47.0); Hemoglobin 12.5 g/dl (12.0-16.0); Immature Granulocytes # (auto) 0.02 K/uL (0.01-0.20); Immature Granulocytes % (auto) 0.3 %; Lymphocytes # (auto) 1.62 K/uL (1.20-3.40); Lymphocytes % (auto) 24.1 %; Mean Corpuscular Hemoglobin 28.7 pg (25.0-34.0); Mean Corpuscular Hgb Conc 35.3 g/dL (32.0-36.0); Mean Corpuscular Volume 81.4 fL (80.0-100.0); Mean Platelet Volume 12.4 fL (9.4-12.4); Monocytes # (auto) 0.79 K/uL (0.11-0.59); Monocytes % (auto) 11.8 %; Neutrophils # (auto) 4.13 K/uL (1.40-6.50); Neutrophils % (auto) 61.5 %; Platelet Count 217 K/uL (130-400); RDW Coefficient of Variation 15.1 % (11.5-14.5); RDW Standard Deviation 45.1 fL (36.4-46.3); Red Blood Count 4.35 M/uL (4.20-5.40); White Blood Count 6.72 K/ul (4.8-10.8)
[2024-09-26 07:21] LABS: BUN Creatinine Ratio 22.5 (10-20); Calcium 8.3 mg/dl (8.6-10.3); Creatinine Clr Calc Pharmacy 176.8 ml/min; Potassium 3.4 mmol/L (3.5-5.1)
[2024-09-26] MEDS: oxyCODONE HCL IR 5 MG TAB (IMMEDIATE RELEASE) PO PRN (08:12)
[2024-09-26] MEDS: ESCITALOPRAM OXALATE 10 MG TAB PO SCH (08:12)
[2024-09-26] MEDS: PANTOprazole 40 MG TAB PO SCH (08:12)
[2024-09-26] MEDS: TAMSULOSIN HCL 0.4 MG CAP PO SCH (08:12)
--- NOTE | 2024-09-26 08:22 | Urology Consultation ---
Date of Consultation September 26, 2024 Assessment & Plan (1) Acute left flank pain: (2) Hydronephrosis, left: Plan 34-year-old female with a history of left nephrolithiasis status post ureteroscopy for stone treatment by Dr. Mallory 09/22/2024. Stent was left on a string and it was removed in clinic on 09/24/2023. Patient presented to hospital yesterday with worsening left flank pain. -Patient reports feeling better today -Discussed CT scan, which shows some left hydroureteronephrosis, which is expected shortly after removing stent. No obstructing stone seen. Discussed the recommendation would be to control pain as the only other option would be to replace a stent which would likely start the process all over again what it would have to be removed in the future. Patient was agreeable Recommend Tylenol, ibuprofen, narcotics as needed for discomfort. Low utility for Flomax, Pyridium or oxybutynin in this case Urology to sign off. Patient stable for discharge home from a urologic perspective History of Present Illness Attending Physician: Betty Adler MD History of Present Illness 34-year-old female with a history of left nephrolithiasis status post ureteroscopy for stone treatment by Dr. Mallory 09/22/2024. Stent was left on a string and it was removed in clinic on 09/24/2023. Patient presented to hospital yesterday with worsening left flank pain. Reviewed her labs which were stable. Urine cultures pending. Independently reviewed a CT scan of the abdomen pelvis which shows mild left hydroureteronephrosis which is expected shortly after stent removal. Punctate stones in the kidney, nonobstructing. No obvious ureteral obstruction. Patient reports feeling better today. Allergies Allergy/AdvReac Type Severity Reaction Status Date / Time cephalexin [From Keflex] Allergy Severe Difficulty Verified 09/22/24 15:00 breathing, itchy amoxicillin Allergy Unknown Happened Verified 09/22/24 15:00 as infant diphenhydramine AdvReac Intermediate Leg pain Verified 09/22/24 15:00 Home Medications Medication Instructions Recorded Confirmed Type topiramate 25 mg tablet (Topamax) 25 mg PO TID 08/22/18 09/25/24 History escitalopram oxalate 10 mg tablet 10 mg PO QAM 02/14/24 09/25/24 History multivitamin 1 tab PO BID 09/17/24 09/25/24 History omeprazole 20 mg capsule,delayed 20 mg PO QAM 09/17/24 09/25/24 History release vitamin B complex 1 cap PO DAILY 09/17/24 09/25/24 History tamsulosin 0.4 mg capsule 0.4 mg PO QAM 30 days #30 caps 09/19/24 09/25/24 Rx ciprofloxacin HCl 500 mg tablet 500 mg PO BID #6 tabs 09/22/24 09/25/24 Rx (Cipro) oxycodone 5 mg tablet 5 mg PO BID PRN pain #7 tabs 09/25/24 09/25/24 Rx Patient History Medical History Morbid obesity Insulin resistance Hx of gastroesophageal reflux (GERD) Anxiety PCOS (polycystic ovarian syndrome) Hx of migraines Improved after gastric bypass Hx of seizure disorder As child, most recent 2019 after EGD Patient reports taking topamax for migraines Ureteropelvic junction calculus Surgical History History of anesthesia reaction (2019) Seizure after EGD 2020 at [facility] in 2019- no seizures since Hx of gastric bypass (07/25/24) "Jason" [facility] S/P cystoscopy with ureteral stent placement (09/18/24) History of root canal procedure Hx of wisdom tooth extraction Hx of tonsillectomy History of esophagogastroduodenoscopy (EGD) Family History Sister Family history of diabetes mellitus Aunt Family history of diabetes mellitus Uncle Family history of diabetes mellitus Grandmother (Maternal) Family hx colonic polyps Other No family history of adverse response to anesthesia Social History Smoking Status: Never smoker Second Hand Exposure: No; Do You Dip or Chew Tobacco: No; Tobacco Cessation Education Requested by Patient: No Hx Alcohol Use: No Hx Substance Use: No Preferred Language: Hungarian Communication Ability: Effective Finishing Room Supervisor Required: No Beliefs That Will Affect Care: None Current Living Situation: Family Current Living Situation Comment: grandmother Other Information That Helps Us Care for You: Yes Feels Safe at Home: Yes Safety Concerns: Feels Safe At This Time Assistive Devices: None Physical Exam Physical Exam: General: Alert and oriented, no acute distress HEENT: Normocephalic, mucous membranes moist Pulmonary: Nonlabored respirations Abdomen: Nondistended Extremities: Moves all 4 spontaneously Neuro: No gross deficits Skin: Warm, dry, no rashes noted Results & Data Vital Signs (Past 12 Hours) Vital Signs Temp Pulse Pulse Resp BP BP Pulse Ox 09/26/24 07:43 37.0 C 58 L 16 114/70 96 09/26/24 00:09 36.7 C 82 18 126/79 98 09/25/24 22:50 65 19 130/71 99 09/25/24 22:00 74 14 130/71 98 O2 Del Method 09/26/24 07:43 Room Air 09/26/24 00:09 Room Air 09/25/24 22:50 Room Air 09/25/24 22:00 Room Air PG Care Time/CCT Total # of Minutes Spent Total Time Spent with Patient: Total time spent is greater than 50% in coordination of care (as documented) at patient's floor/unit and/or counseling patient: Coding Level of Care Code 25794 IN/OBS CONSULT LVL 3,45M Diagnoses Acute left flank pain R10.9 Hydronephrosis, left N13.30
[2024-09-26] MEDS: TOPIRAMATE 25 MG TAB PO SCH (10:17)
[2024-09-26] MEDS: POTASSIUM CHLORIDE / WTR 10 MEQ/100 ML PLCT IV ONE (10:17)
[2024-09-26] MEDS: ACETAMINOPHEN 325 MG TAB PO PRN (15:00)
--- NOTE | 2024-09-26 16:52 | Hospitalist Progress Note ---
Date of Service September 26, 2024 Assessment & Plan (1) Acute left flank pain: Plan Dina Acosta is a 34-year-old female with past medical history significant for PCOS, hyperinsulinemia, severe obesity s/p gastric bypass surgery [07/2024] complicated by postoperative ileus, intestinal postoperative absorption, left- sided low back pain with left-sided sciatica, history of migraines and ROSANNE/depression who presents to the hospital with left flank pain. Left Flank Pain Left Hydronephrosis Possible Pyelonephritis Nephrolithiasis patient presented with left-sided flank pain UA suggestive of infection, urine culture pending Not septic at the time of infection Abdomen pelvis CT concerning for left-sided hydronephrosis and possible pyelonephritis. Also noted nonobstructing kidney stones Urology was consulted, appreciate recs -Patient recently had stent removed -Recommending pain control IV Aztreonam Continue to monitor Hypokalemia Replete as needed Continue other home meds as ordered Diet: Regular DVT prophylaxis: SCDs Dispo: Home once pain controlled Admission and Anticipated Discharge Date Admission Date: September 25, 2024 Subjective patient was seen in the a.m. Requesting to eat after being evaluated by urology Noted that her pain was better than the day before but still not completely gone Review of Systems Review of Systems: All systems reviewed & are unremarkable except as noted in Subjective Physical Exam Physical Exam: General: Alert, oriented. No acute distress Skin: No noted rashes or bruises Psych: Appropriate mood and affect Neuro: No gross deficits HEENT: NC/AT CV: RRR Resp: Breath sounds clear bilaterally, no increased effort of breathing Abdomen: Soft, nontender Extremities: No edema in lower extremities bilaterally. Results & Data Results & Data Vital Signs (Past 12 Hours) Vital Signs Temp Pulse Resp BP Pulse Ox O2 Del Method 09/26/24 15:46 37.6 C H 75 16 118/75 98 Room Air 09/26/24 07:43 37.0 C 58 L 16 114/70 96 Room Air Diagnostic Findings Abdomen/Pelvis CT 09/25/24 18:45 Exam(s): CT ABDOMEN + PELVIS With Contrast IV Amt: 112ml optiray 320 EXAM: CT Abdomen and Pelvis With Intravenous Contrast CLINICAL HISTORY: Reason for exam: LEFT FLANK PAIN, RECENT STONE/STENT REMOVED YESTER. TECHNIQUE: Axial computed tomography images of the abdomen and pelvis with intravenous contrast. CTDI is 28 mGy and DLP is 1634 mGy-cm. Automated exposure control was utilized for the study. A dose lowering technique was utilized adhering to the principles of ALARA. CONTRAST: Patient received 112ml optiray 320 of IV contrast COMPARISON: 09/17/24 FINDINGS: Lung bases: Unremarkable. ABDOMEN: Liver: Unremarkable. No mass. Gallbladder and bile ducts: Unremarkable. No calcified stones. No ductal dilation. Pancreas: Unremarkable. No mass. No ductal dilation. Spleen: Unremarkable. No splenomegaly. Adrenals: Unremarkable. No mass. Kidneys and ureters: Mild left kidney hydronephrosis without hydroureter. Diminished/delayed enhancement of the left kidney with perinephric stranding. There are 2 nonobstructing left kidney lower pole stones, largest 3 mm. Right kidney and collecting system are normal. Stomach and bowel: Postoperative changes of the stomach. No bowel obstruction. No mucosal thickening. PELVIS: Appendix: Appendix not identified. No secondary signs of appendicitis. Bladder: Decompressed urinary bladder, limiting evaluation. Reproductive: Unremarkable as visualized. ABDOMEN and PELVIS: Intraperitoneal space: Unremarkable. No free air, significant free fluid, or fluid collection. Bones/joints: Degenerative changes in the lumbar spine. No acute fracture or dislocation. Soft tissues: Unremarkable. Vasculature: Unremarkable. No abdominal aortic aneurysm. Lymph nodes: Unremarkable. No enlarged lymph nodes. IMPRESSION: 1. Mild left kidney hydronephrosis without hydroureter. Diminished/delayed enhancement of the left kidney with perinephric stranding. Overall appearance could represent a degree of UPJ obstruction (possibly due to stricture) versus pyelonephritis. Correlate with urinalysis. 2. There are 2 nonobstructing left kidney lower pole stones, largest 3 mm. Electronically signed by: Melva Santiago M.D. 09/25/24 19:57 PM
[2024-09-27 06:35] LABS: Basophils # (auto) 0.02 K/uL (0.00-0.20); Basophils % (auto) 0.3 %; Eosinophils # (auto) 0.09 K/uL (0.00-0.50); Eosinophils % (auto) 1.4 %; Hematocrit (blood only) 38.4 % (37.0-47.0); Hemoglobin 13.8 g/dl (12.0-16.0); Immature Granulocytes # (auto) 0.02 K/uL (0.01-0.20); Immature Granulocytes % (auto) 0.3 %; Lymphocytes # (auto) 1.55 K/uL (1.20-3.40); Lymphocytes % (auto) 23.3 %; Mean Corpuscular Hemoglobin 29.2 pg (25.0-34.0); Mean Corpuscular Hgb Conc 35.9 g/dL (32.0-36.0); Mean Corpuscular Volume 81.4 fL (80.0-100.0); Monocytes # (auto) 0.74 K/uL (0.11-0.59); Monocytes % (auto) 11.1 %; Neutrophils # (auto) 4.24 K/uL (1.40-6.50); Neutrophils % (auto) 63.6 %; Platelet Count 235 K/uL (130-400); RDW Coefficient of Variation 15.2 % (11.5-14.5); RDW Standard Deviation 45.4 fL (36.4-46.3); Red Blood Count 4.72 M/uL (4.20-5.40); White Blood Count 6.66 K/ul (4.8-10.8)
[2024-09-27 07:03] VITALS: BP 122/66; PULSE 66; RESP 16; TEMP 99; O2SAT 96
[2024-09-27 07:09] LABS: BUN Creatinine Ratio 15.1 (10-20); Calcium 8.4 mg/dl (8.6-10.3); Potassium 3.4 mmol/L (3.5-5.1)
[2024-09-27] MEDS: POTASSIUM CHLORIDE CRTAB 20 MEQ TABCR PO STA (09:39)
--- NOTE | 2024-09-27 12:16 | Hospitalist Progress Note ---
Date of Service September 27, 2024 Assessment & Plan (1) Acute left flank pain: Plan Dina Acosta is a 34-year-old female with past medical history significant for PCOS, hyperinsulinemia, severe obesity s/p gastric bypass surgery [07/2024] complicated by postoperative ileus, intestinal postoperative absorption, left- sided low back pain with left-sided sciatica, history of migraines and ROSANEN/depression who presents to the hospital with left flank pain. Left Flank Pain Left Hydronephrosis Possible Pyelonephritis Nephrolithiasis patient presented with left-sided flank pain UA suggestive of infection, urine culture pending Not septic at the time of infection Abdomen pelvis CT concerning for left-sided hydronephrosis and possible pyelonephritis. Also noted nonobstructing kidney stones Urology was consulted, appreciate recs -Patient recently had stent removed -Recommending pain control IV Aztreonam Continue to monitor Hypokalemia Replete as needed Continue other home meds as ordered Diet: Regular DVT prophylaxis: SCDs Dispo: Home once pain controlled Admission and Anticipated Discharge Date Admission Date: September 25, 2024 Physical Exam Physical Exam: General: Alert, oriented. No acute distress Skin: No noted rashes or bruises Psych: Appropriate mood and affect Neuro: No gross deficits HEENT: NC/AT CV: RRR Resp: Breath sounds clear bilaterally, no increased effort of breathing Abdomen: Soft, nontender Extremities: No edema in lower extremities bilaterally. Results & Data Results & Data Vital Signs (Past 12 Hours) Vital Signs Temp Pulse Resp BP Pulse Ox O2 Del Method 09/27/24 07:03 37.2 C 66 16 122/66 96 Room Air
--- NOTE | 2024-09-27 12:28 | Discharge Summary ---
Discharge Summary Date of Service September 27, 2024 Principal Dx & Hospital Course #1 = Principal Diagnosis (1) Acute left flank pain: Plan Dina Acosta is a 34-year-old female with past medical history significant for PCOS, hyperinsulinemia, severe obesity s/p gastric bypass surgery [07/2024] complicated by postoperative ileus, intestinal postoperative absorption, left- sided low back pain with left-sided sciatica, history of migraines and ROSANNE/depression who presents to the hospital with left flank pain. Left Flank Pain Left Hydronephrosis Possible Pyelonephritis Nephrolithiasis patient presented with left-sided flank pain UA suggestive of infection, urine culture no growth to date Not septic at the time of infection Abdomen pelvis CT concerning for left-sided hydronephrosis and possible pyelonep hritis. Also noted nonobstructing kidney stones Urology was consulted, recommended/stated the following: "Patient reports feeling better today -Discussed CT scan, which shows some left hydroureteronephrosis, which is expected shortly after removing stent. No obstructing stone seen. Discussed the recommendation would be to control pain as the only other option would be to replace a stent which would likely start the process all over again what it would have to be removed in the future. Patient was agreeable Recommend Tylenol, ibuprofen, narcotics as needed for discomfort. Low utility for Flomax, Pyridium or oxybutynin in this case" Patient was treated with IV aztreonam and transitioned to p.o. ciprofloxacin for an additional 3 days after discharge on the day of discharge, she noted no significant pain. Stated that she had a few pills of oxycodone at home and was prescribed an additional 3 days worth. Noted that she was still having some nausea and did have Zofran at home. Prescribed Phenergan for Alternative relief as needed. her ciprofloxacin was also renewed for an additional 3 days of treatment. She was advised to closely follow-up with her primary care provider for further evaluation and management of her pain as needed. Please ensure close urology follow-up as well after discharge. Hypokalemia Repleted as needed Notes For Next Care Provider Please ensure close follow-up with your primary care provider for continued pain management Please ensure close follow-up with urology after discharge Medication Changes From Visit Oxycodone 5 mg daily as needed for severe pain only Ciprofloxacin 500 mg twice daily for 3 more days Phenergan 12.5mg TID prn Admission HPI Per Admitting Provider Past medical history of PCOS, obesity status post gastric bypass, history of migraine, depression. Recent admission from September 17, 2024 to September 19, 2024 for obstructive left ureteropelvic junction calculus status post cystoscopy with left stent placement. After discharge from the hospital, patient followed up on September 22, 2024 to urology for cystoscopy with left ureteral dilation, laser destruction and basket extraction of stone along with exchange of left stent. She then followed up on September 24, 2024 for stent removal. For coming home from urology office yesterday; patient started to experience left flank pain, nonradiating. She denies any fever or chills. She is able to void without any difficulty. She denies any burning sensation or increased urgency. She reports nausea, no vomiting. Patient contacted the urology office; was recommended to go to the ED for further evaluation. On presentation to the ED, patient was normotensive, afebrile and saturating well on room air. CBC did not reveal leukocytosis. BUN/creatinine within normal limits. Urinalysis revealed 2+ protein, 3+ blood and greater than 50 WBC in high-power field. CT abdomen pelvis showed mild left kidney hydronephrosis without hydroureter; diminished/delayed enhancement of left kidney with perinephric stranding. Discussion was done with urology over the phone; patient admitted for observation and pain control. Admission Exam Per Admitting Provider Constitutional: Alert oriented x 3; in discomfort due to pain. Respiratory: Bilateral vesicular breath sound Cardiovascular: RRR, no murmur, no edema Vessels: no JVD or carotid bruit Chest: normal inspection of chest Abdomen: Left costovertebral angle tender, no tenderness otherwise Musculoskeletal: no cyanosis or clubbing, extremities motor strength 5/5 Skin: no rashes, warm and dry normal turgor Neurologic: PERRL, EOMI, accommodation nl, no face palsy, no dysarthria CN's II- XI intact bilaterally and moves all extremities Psychiatric: A+Ox3, euthymic affect Discharge Exam General: Alert, oriented. No acute distress Skin: No noted rashes or bruises Psych: Appropriate mood and affect Neuro: No gross deficits HEENT: NC/AT CV: RRR Resp: Breath sounds clear bilaterally, no increased effort of breathing Abdomen: Soft, nontender Extremities: No edema in lower extremities bilaterally. Updated Medication List Medication Instructions Recorded Confirmed Type topiramate 25 mg tablet (Topamax) 25 mg PO TID 08/22/18 09/25/24 History escitalopram oxalate 10 mg tablet 10 mg PO QAM 02/14/24 09/25/24 History multivitamin 1 tab PO BID 09/17/24 09/25/24 History omeprazole 20 mg capsule,delayed 20 mg PO QAM 09/17/24 09/25/24 History release vitamin B complex 1 cap PO DAILY 09/17/24 09/25/24 History tamsulosin 0.4 mg capsule 0.4 mg PO QAM 30 days #30 caps 09/19/24 09/25/24 Rx oxycodone 5 mg tablet 5 mg PO BID PRN pain #7 tabs 09/25/24 09/25/24 Rx ciprofloxacin HCl 500 mg tablet 500 mg PO BID #6 tabs 09/27/24 Rx (Cipro) oxycodone 5 mg tablet 5 mg PO DAILY PRN severe pain 09/27/24 Rx (scale score 7-10) #3 tabs promethazine 12.5 mg tablet 12.5 mg PO TID PRN nausea and 09/27/24 Rx vomiting #15 tabs Hospital Stay Data Consultations 09/25/24 20:30 ED Decision to Admit Stat 09/25/24 23:09 Consult Urology Routine Diagnostic Imagining Performed 09/25/24 18:45 CT Abd and Pelvis [CT abd pelvis IV con only] Stat Abdomen/Pelvis CT 09/25/24 18:45 Exam(s): CT ABDOMEN + PELVIS With Contrast IV Amt: 112ml optiray 320 EXAM: CT Abdomen and Pelvis With Intravenous Contrast CLINICAL HISTORY: Reason for exam: LEFT FLANK PAIN, RECENT STONE/STENT REMOVED YESTER. TECHNIQUE: Axial computed tomography images of the abdomen and pelvis with intravenous contrast. CTDI is 28 mGy and DLP is 1634 mGy-cm. Automated exposure control was utilized for the study. A dose lowering technique was utilized adhering to the principles of ALARA. CONTRAST: Patient received 112ml optiray 320 of IV contrast COMPARISON: 09/17/24 FINDINGS: Lung bases: Unremarkable. ABDOMEN: Liver: Unremarkable. No mass. Gallbladder and bile ducts: Unremarkable. No calcified stones. No ductal dilation. Pancreas: Unremarkable. No mass. No ductal dilation. Spleen: Unremarkable. No splenomegaly. Adrenals: Unremarkable. No mass. Kidneys and ureters: Mild left kidney hydronephrosis without hydroureter. Diminished/delayed enhancement of the left kidney with perinephric stranding. There are 2 nonobstructing left kidney lower pole stones, largest 3 mm. Right kidney and collecting system are normal. Stomach and bowel: Postoperative changes of the stomach. No bowel obstruction. No mucosal thickening. PELVIS: Appendix: Appendix not identified. No secondary signs of appendicitis. Bladder: Decompressed urinary bladder, limiting evaluation. Reproductive: Unremarkable as visualized. ABDOMEN and PELVIS: Intraperitoneal space: Unremarkable. No free air, significant free fluid, or fluid collection. Bones/joints: Degenerative changes in the lumbar spine. No acute fracture or dislocation. Soft tissues: Unremarkable. Vasculature: Unremarkable. No abdominal aortic aneurysm. Lymph nodes: Unremarkable. No enlarged lymph nodes. IMPRESSION: 1. Mild left kidney hydronephrosis without hydroureter. Diminished/delayed enhancement of the left kidney with perinephric stranding. Overall appearance could represent a degree of UPJ obstruction (possibly due to stricture) versus pyelonephritis. Correlate with urinalysis. 2. There are 2 nonobstructing left kidney lower pole stones, largest 3 mm. Electronically signed by: Melva Santiago M.D. 09/25/24 19:57 PM Discharge Instructions Given to Patient (Per Discharging Provider) Dina, You are admitted and treated for a left flank pain. You were seen by the urologist who recommends that you just continue with pain control at home. Please continue with the Tylenol 1000 mg every 8 hours to help keep your pain at bay. Given your history of recent gastric bypass would not recommend any medications such as ibuprofen (also called Advil or Motrin). We are also discharging you home with a few days of the medication oxycodone to be taken only for severe pain. There was some concern for infection. You are being discharged with an additional 3 days of the antibiotic ciprofloxacin. Please keep close follow-up with urology after discharge. Please keep close follow up with your primary care provider as well after discharge for continued pain management as needed. Please do not hesitate to come back to the emergency room if your symptoms worsen or return. It was a pleasure taking care of you while you were here. Total Time Total Time Spent Total Time Spent (In Minutes): 65
--- NOTE | 2024-09-29 18:34 | Coding Query ---
CODING QUERY To promote full compliance with coding requirements relating to patient care, provider participation is requested in all cases of interior designer uncertainty. Please assist us with the question(s) below: Coding Question(s): Pt. with Recent admission from September 17, 2024 to September 19, 2024 for obstructive left ureteropelvic junction calculus status post cystoscopy with left stent placement. After discharge from the hospital, patient followed up on September 22, 2024 to urology for cystoscopy with left ureteral dilation, laser destruction and basket extraction of stone along with exchange of left stent. She then followed up on September 24, 2024 for stent removal. For coming home from urology office yesterday; patient started to experience left flank pain, nonradiating. She denies any fever or chills. She is able to void without any difficulty. She denies any burning sensation or increased urgency. She reports nausea, no vomiting. Patient contacted the urology office; was recommended to go to the ED for further evaluation. On presentation to the ED, patient was normotensive, afebrile and saturating well on room air. CBC did not reveal leukocytosis. BUN/creatinine within normal limits. Urinalysis revealed 2+ protein, 3+ blood and greater than 50 WBC in high-power field. CT abdomen pelvis showed mild left kidney hydronephrosis without hydroureter; diminished/delayed enhancement of left kidney with perinephric stranding. Discussion was done with urology over the phone; patient admitted for observation and pain control. Physician's Response(s): ___ Possible pyelonephritis related to removal of Left ureteral stent __x_ undetermined ___Other(Please specify) Thank you Alicia WILKINSON
== END 2024-09-27 13:57 | disposition home or self-care (01) | DRG 690 ==
LOC: ED 16:51 → 3W 21:21